=== PATIENT | female | born 1980 | race Caucasian/White ===

== ENCOUNTER 2016-04-28 09:32 | Inpatient (IN) | payer OTHER ==
[2016-04-28] VITALS (48 sets, daily range): BP systolic 67–136; BP diastolic 43–71; PULSE 72–94; RESP 13–24; Ht 162.6 cm; Wt 117.1 kg
[~2016-04-28] VITALS: Ht 162.6 cm; Wt 117.1 kg
[2016-04-28] MEDS ORDERED: D5W-0.45 NACL + KCL 20 MEQ 1,000 ML IV SCH (10:33)
[2016-04-28] MEDS ORDERED: SERT-165 PO (10:45)
[2016-04-28] MEDS ORDERED: LUN2 PO (10:45)
[2016-04-28] MEDS ORDERED: LOSA25TA5 PO (10:45)
[2016-04-28] MEDS ORDERED: ALPR1TAB7 PO (10:45)
[2016-04-28] MEDS ORDERED: MTF1000T PO (10:45)
[2016-04-28] MEDS ORDERED: morphine 2 MG INJ IV PRN (11:00)
[2016-04-28] MEDS ORDERED: ACETAMINOPHEN 1000MG/100ML IV 100 ML IVPB PRN (11:00)
[2016-04-28] MEDS ORDERED: CEFAZOLIN 2 GM/50 ML (PMX) 50 ML IVPB ONE (11:00)
[2016-04-28] MEDS ORDERED: SOD CHLORIDE 0.9% 1,000 ML IV ONE (11:00)
[2016-04-28 11:56] LABS: BASOPHIL # 0.1 10^3/ul (0.0-0.1); BASOPHILS % 0.4 % (0.0-2.0); EOSINOPHILS # 0.2 10^3/ul (0.0-0.5); EOSINOPHILS % 1.5 % (0.0-7.0); HEMATOCRIT 37.2 % (37.0-47.0); HEMOGLOBIN 12.5 g/dl (12.0-16.0); INR 1.01; LYMPHOCYTES % 29.4 % (15.0-51.0); MEAN CORPUSCULAR HEMOGLOBIN 26.5 pg (29.0-33.0); MEAN CORPUSCULAR HGB CONC 33.5 g/dl (32.0-37.0); MEAN CORPUSCULAR VOLUME 79.2 fl (82.0-101.0); MEAN PLATELET VOLUME 7.3 fl (7.4-10.4); MONOCYTE # 0.7 10^3/ul (0.3-0.9); MONOCYTES % 5.2 % (0.0-11.0); NEUTROPHIL # 8.6 10^3/ul (1.6-7.5); NEUTROPHILS % 63.5 % (39.0-77.0); PLATELET COUNT 379 10^3/UL (140-440); PROTIME 13.3 Sec (12.2-14.2); RED CELL DISTRIBUTION WIDTH 15.9 % (11.5-14.5); UNCORRECTED WBC 13.5 10^3/ul (4.8-10.8); WHITE BLOOD COUNT 13.5 10^3/ul (4.8-10.8)
[2016-04-28 11:57] LABS: PARTIAL THROMBOPLASTIN TIME 34.6 Sec (25.0-35.0)
[2016-04-28 12:00] LABS: CONDITION 1; LH ANALYZER COMMENTS 1
[2016-04-28 12:03] LABS: CALCIUM 8.8 mg/dl (8.4-10.2); CREATININE 0.45 mg/dl (0.44-1.00); POTASSIUM 3.7 mmol/L (3.5-5.1)
[2016-04-28] MEDS ORDERED: PROPOFOL 20 ML ONE (13:08)
[2016-04-28] MEDS ORDERED: FENTAnyl 50 MCG/ML VIAL ONE (13:08)
[2016-04-28] MEDS ORDERED: MIDAZOLAM 1 MG/ML 2 ML INJ ONE (13:08)
[2016-04-28] MEDS ORDERED: ROCURONIUM 50 MG INJ ONE (13:08)
[2016-04-28] MEDS ORDERED: ROPIVACAINE 0.2% 20 ML VIAL ONE (13:12)
[2016-04-28] MEDS ORDERED: ALBUTEROL 0.083% (NEB) 2.5 MG/3 ML AMP ONE (13:30)
[2016-04-28] MEDS ORDERED: CEFAZOLIN 1 GM INJ ONE (13:47)
[2016-04-28] MEDS ORDERED: PHENYLephrine (100 MCG/ML) 5ML SYG ONE (13:48)
[2016-04-28] MEDS ORDERED: DEXAMETHASONE 4 MG/ML 1 ML INJ ONE (13:54)
[2016-04-28] MEDS ORDERED: ONDANSETRON 4 MG INJ ONE (13:54)
[2016-04-28] MEDS ORDERED: FAMOTIDINE 20 MG INJ ONE (13:54)
[2016-04-28] MEDS ORDERED: ACETAMINOPHEN 1000MG/100ML IV 100 ML ONE (13:59)
[2016-04-28] MEDS ORDERED: GLYCOPYRROLATE 0.4 MG INJ ONE (14:27)
[2016-04-28] MEDS ORDERED: NEOSTIGMINE 3 MG/3 ML SYRINGE ONE (14:27)
[2016-04-28] MEDS ORDERED: ONDANSETRON 4 MG INJ IV PRN (14:30)
[2016-04-28] MEDS ORDERED: HYDROmorphONE (0.2 MG/ML) 10ML SYG IV PRN (14:30)
[2016-04-28] MEDS ORDERED: MEPERIDINE 25 MG INJ IV PRN (14:30)
[2016-04-28] MEDS ORDERED: SOD CHLORIDE 0.9% 500 ML IV ONE (17:30)
[2016-04-28] MEDS ORDERED: GLUCOSE GEL 15 GRAM TUBE PO PRN ×2 (17:30)
[2016-04-28] MEDS ORDERED: GLUCAGON 1 MG INJ IM PRN (17:30)
[2016-04-28] MEDS ORDERED: DEXTROSE 50% 50 ML SYRINGE IV PRN ×2 (17:30)
[2016-04-28] MEDS ORDERED: GLUCOSE GEL 15 GRAM TUBE BUCCAL PRN (17:30)
--- NOTE | 2016-04-28 17:34 | OPR ---
DATE OF OPERATION: 04/28/2016 PREOPERATIVE DIAGNOSIS: Symptomatic cholelithiasis. POSTOPERATIVE DIAGNOSIS: Symptomatic cholelithiasis. OPERATION PERFORMED: Laparoscopic cholecystectomy. ANESTHESIA: General. ANESTHESIOLOGIST: Bhavin Thomas DO SURGEON: Chandan Dixon MD AIRPLANE COVER MAKER: Ernst Georges MD INDICATIONS FOR PROCEDURE: The patient is a 35-year-old female who presented with multiple previous episodes of right upper quadrant pain associated with nausea and vomiting. Ultrasound did confirm cholelithiasis. She was counseled as to the risks versus benefits of cholecystectomy. She consente d and was scheduled for surgery. DESCRIPTION OF PROCEDURE: The patient was brought to the operating theater, placed under general en dotracheal tube anesthesia. The abdomen was prepped and draped in usual sterile fashion. A 2-cm in cision was made in the midline just above the umbilicus. Subcutaneous tissue was dissected with cau shruti down to the anterior rectus sheath. The 0 Vicryl stay sutures were placed on either side of th e linea alba. The linea alba was incised and the abdomen was entered without difficulty. Jose A tr ocar was then placed in standard fashion. The abdomen was insufflated to a pressure of approximatel y 14 mmHg with carbon dioxide. The laparoscope was introduced. Attention was directed to the right upper quadrant where a distended gallbladder with stone silhouettes was identified. Three accessor y ports were placed under direct vision in standard fashion. Through the lateral port sites, the ga llbladder was grasped at the fundus and neck and retracted cephalad and lateral. Peritoneum overlyi ng the gallbladder, both laterally and medially, was then incised with cautery to facilitate mobiliz ation of triangle of Calot. With meticulous dissection, the cystic duct was isolated. Two clips we re placed across it distally. It was then transected with the endovascular NICOLE stapler at its junct ion with the neck of the gallbladder. Subsequently, cystic artery was isolated, triply clipped, and transected. Gallbladder was then dissected out of the gallbladder fossa using cautery. Prior to f inal transection, irrigation and inspection took place. Minimal bleeding was controlled with cauter y. The gallbladder was transected. The laparoscope was moved to the 12-mm subcostal port site, and the gallbladder was removed from the abdomen through the umbilical port site using the gallbladder retrieval bag. The Jose A trocar was then placed back in the abdomen. The abdomen was reinsufflate d. The laparoscope was moved back to the umbilical port site. Final irrigation and inspection took place. There was no evidence of bleeding. Three accessory ports were then removed under direct vi danilo. Again, there was no evidence of bleeding. Finally, the umbilical port was removed. Midline umbilical fascia was reapproximated with 0 Prolene sutures in figure-of-8 fashion. All wounds were irrigated with Betadine. Skin incisions were reapproximated with skin nitin. The patient tolerat ed procedure well. Estimated blood loss was 20 mL. There were no complications and the patient was transported in stable condition to the recovery room. Dictated By: CHANDAN PANTOJA/ARGELIA Conf#: [id number] DID#: [id number]
--- NOTE | 2016-04-28 17:37 | RADRPT ---
PROCEDURE: Chest Radiograph. CLINICAL INDICATION: Shortness of breath TECHNIQUE: Single frontal chest radiograph. COMPARISON: None available FINDINGS: The patient is rotated. Lung volumes are moderately decreased in there is mild basilar atelectasis and central compressive changes. No confluent or lobar infiltrate is seen. No pleural effusion is identified. The bones are intact. IMPRESSION: 1. Low lung volumes with basilar atelectasis and central compressive changes. 10. No evidence of acute cardiopulmonary disease. RPTAT: KK .Nirmal Duke MD, MD Date Time Electronically viewed and signed by .Nirmal Duke MD, on 04/28/2016 17:37 .B/
[2016-04-28] MEDS: INSULIN ASPART [NOVOLOG] 3 ML PEN SC SCH ×2 (18:00→21:18)
[2016-04-28] MEDS ORDERED: KETOROLAC 30 MG INJ IV PRN (20:00)
[2016-04-28] MEDS: metFORMIN 500 MG TAB PO SCH (20:08)
[2016-04-28] MEDS: morphine 2 MG INJ IV PRN ×2 (20:20→22:09)
--- NOTE | 2016-04-28 20:28 | HP ---
DATE OF ADMISSION: 04/28/2016 HISTORY OF PRESENT ILLNESS: The patient is a 35-year-old female with a past medical history positiv e for obesity, anxiety and depression and noninsulin-dependent diabetes mellitus. The patient prese nted with symptomatic cholelithiasis and was seen by Dr. Dixon in surgical consultation. The patien t was brought to the hospital and underwent laparoscopic cholecystectomy. The patient experienced s ome postoperative pain. Also the patient had labile blood pressure, was getting IV fluids, and sebastian ent will be admitted for further evaluation and management. PAST MEDICAL HISTORY: Per HPI. PAST SURGICAL HISTORY: Status post ORIF of right ankle fracture in 2006, status post appendectomy. FAMILY HISTORY: Positive for diabetes in the patient's mother, positive for colon cancer in the pat ient's brother at the age of 46. SOCIAL HISTORY: The patient lives at home. The patient denies any tobacco use, denies any illicit drug use. The patient uses alcohol occasionally. ALLERGIES: NO KNOWN ALLERGIES. HOME MEDICATIONS: Include: 1. Metformin 1000 mg p.o. b.i.d. 2. Zoloft 100 mg p.o. daily. REVIEW OF SYSTEMS: A 12-point review of systems is negative unless mentioned in HPI. PHYSICAL ASSESSMENT: GENERAL: A well-developed, well-nourished obese female, currently is awake, alert. VITAL SIGNS: Temperature is 97.5, pulse is 79, blood pressure is 124/64, respiratory rate 16, oxyge n saturation 97% on room air. HEENT: Head is atraumatic, normocephalic. Pupils equal, round, reactive to light and accommodation . Oral mucosa is pink, moist. NECK: Supple. No cervical lymphadenopathy, no thyromegaly. CHEST: Clear bilaterally. There are no rhonchi, wheezes, rales noted. CARDIOVASCULAR: Normal S1, S2. No murmurs, gallops, clicks, rubs noted. ABDOMEN: Protuberant, soft, status post laparoscopic cholecystectomy with laparoscopic incisions in tact. EXTREMITIES: No edema, clubbing, cyanosis. Pulses equal bilaterally 2+. SKIN: There is no rash, petechiae noted. NEUROLOGIC: The patient is awake, alert and oriented x4. No focal deficit noted. Motor strength o f 5/5 in all extremities. LABORATORY DATA ON ADMISSION: CBC: White blood cells 13.5, hemoglobin 12.5, hematocrit 37.2, plate lets 379. Chemistry: Sodium is 142, potassium 3.7, chloride 106, carbon dioxide 24, anion gap 16, BUN is 9, creatinine 0.45, glucose 100, calcium is 8.8. PT is 13.3, INR is 1.01, APTT is 34.6. ASSESSMENT AND PLAN: 1. Symptomatic cholelithiasis, status post laparoscopic cholecystectomy. Will continue IV fluids. The patient received preoperative antibiotic, cefazolin. Continue Tylenol and morphine p.r.n. for pain and Zofran p.r.n. for nausea. 2. Noninsulin-dependent diabetes mellitus. We are going to monitor blood sugar, continue metformin . The patient was able to take p.o., now start NovoLog per mild algorithm sliding scale. 3. Obesity. 4. Anxiety and depression. 5. Sequential compression device for deep venous thrombosis prophylaxis. Further recommendations based on clinical course. Plan of care discussed with Dr. Rodrigez. Dictated By: AYLIN REMY [employer] SUPERVISOR for LUIS E RODRIGEZ MD SR/NTS Conf#: [id number] DID#: [id number]
[2016-04-28] MEDS: 1/2 NS + KCL 20 MEQ 1,000 ML IV SCH (21:19)
[2016-04-29] MEDS ORDERED: morphine 2 MG INJ IV PRN
[2016-04-29] MEDS: morphine 4 MG/ML VIAL IV PRN ×9 (00:20→16:42)
[2016-04-29 02:51] VITALS: BP 119/61; PULSE 89; RESP 18
[2016-04-29 07:59] VITALS: BP 122/58; RESP 18
[2016-04-29] MEDS: INSULIN ASPART [NOVOLOG] 3 ML PEN SC SCH ×5 (08:00→21:00)
[2016-04-29] MEDS: SERTRALINE 100 MG TAB PO SCH (08:45)
[2016-04-29] MEDS: metFORMIN 500 MG TAB PO SCH ×2 (08:46→17:05)
[2016-04-29 08:47] LABS: BASOPHIL # 0.1 10^3/ul (0.0-0.1); BASOPHILS % 0.4 % (0.0-2.0); EOSINOPHILS % 0.1 % (0.0-7.0); HEMATOCRIT 27.1 % (37.0-47.0); LYMPHOCYTES # 3.2 10^3/ul (0.8-2.9); MEAN CORPUSCULAR HEMOGLOBIN 26.6 pg (29.0-33.0); MEAN CORPUSCULAR HGB CONC 33.3 g/dl (32.0-37.0); MEAN CORPUSCULAR VOLUME 80.1 fl (82.0-101.0); MEAN PLATELET VOLUME 7.1 fl (7.4-10.4); MONOCYTE # 1.6 10^3/ul (0.3-0.9); MONOCYTES % 7.3 % (0.0-11.0); NEUTROPHIL # 16.6 10^3/ul (1.6-7.5); NEUTROPHILS % 77.2 % (39.0-77.0); PLATELET COUNT 447 10^3/UL (140-440); RED BLOOD COUNT 3.38 10^6/ul (4.20-5.40); RED CELL DISTRIBUTION WIDTH 15.6 % (11.5-14.5); UNCORRECTED WBC 21.5 10^3/ul (4.8-10.8); WHITE BLOOD COUNT 21.5 10^3/ul (4.8-10.8)
[2016-04-29 08:57] LABS: CONDITION 1; LH ANALYZER COMMENTS 1; POTASSIUM 4.4 mmol/L (3.5-5.1)
[2016-04-29 08:59] LABS: CREATININE 0.5 mg/dl (0.44-1.00)
[2016-04-29 09:00] LABS: CALCIUM 7.8 mg/dl (8.4-10.2)
[2016-04-29] MEDS: 1/2 NS + KCL 20 MEQ 1,000 ML IV SCH (10:33)
[2016-04-29] MEDS ORDERED: ALPRAZOLAM 1 MG TAB PO PRN (11:30)
[2016-04-29 12:48] LABS: HEMATOCRIT 26.8 % (37.0-47.0); HEMOGLOBIN 8.8 g/dl (12.0-16.0)
[2016-04-29 12:55] VITALS: BP 140/67; PULSE 103; RESP 16
--- NOTE | 2016-04-29 15:03 | PN ---
Date/Time of Note Date/Time of Note DATE: 04/29/16 TIME: 15:01 Assessment/Plan VTE Prophylaxis VTE Prophylaxis Intervention: other Lines/Catheters IV Catheter Type (from Nrs): Peripheral IV Assessment/Plan Chief Complaint/Hosp Course 1. Symptomatic cholelithiasis, status post laparoscopic cholecystectomy. Will continue IV fluids. 2. Noninsulin-dependent diabetes mellitus. 3. Obesity. 4. Anxiety and depression. 5 obesity 6 leucocytosis plan antibiotic ck labs Problems: Subjective 24 Hr Interval Summary Subjective hx not possible: other (abd pain) Respiratory: no complaints Cardiovascular: No chest pain Gastrointestinal: pain (+), No nausea Exam/Review of Systems Vital Signs Vitals Vital Signs Date Time Temp Pulse Resp B/P Pulse Ox O2 Delivery O2 Flow Rate FiO2 04/29/16 12:55 98.2 103 16 140/67 97 Nasal Cannula 2.0 Intake and Output 04/28/16 04/28/16 04/29/16 15:00 23:00 07:00 Intake Total 1000 ml 500 ml 1005 ml Output Total 20 ml Balance 980 ml 500 ml 1005 ml Exam Neck: supple Respiratory: clear to auscultation Cardiovascular: regular rate and rhythm Gastrointestinal: bowel sounds (+), tender (+), No distended Results Result Diagram: 04/29/16 1209 04/29/16 0723 Results 24 hrs Laboratory Tests Test 04/28/16 21:10 04/29/16 01:37 04/29/16 07:23 04/29/16 08:37 Bedside Glucose 189 166 137 Anion Gap 16 Basophils # 0.1 Basophils % 0.4 Blood Morphology Comment Blood Urea Nitrogen 10 Calcium Level 7.8 L Carbon Dioxide Level 26 Chloride Level 104 Creatinine 0.50 Eosinophils # 0.0 Eosinophils % 0.1 Glucose Level 141 # Hematocrit 27.1 #L Hemoglobin 9.0 #L Hemoglobin A1c 6.1 H Lymphocytes # 3.2 H Lymphocytes % 15.0 Mean Corpuscular Hemoglobin 26.6 L Mean Corpuscular Hemoglobin Concent 33.3 Mean Corpuscular Volume 80.1 L Mean Platelet Volume 7.1 L Monocytes # 1.6 H Monocytes % 7.3 Neutrophils # 16.6 H Neutrophils % 77.2 H Nucleated Red Blood Cells # 0.0 Nucleated Red Blood Cells % 0.0 Platelet Count 447 H Potassium Level 4.4 Red Blood Count 3.38 #L Red Cell Distribution Width 15.6 H Sodium Level 142 White Blood Count 21.5 #H Test 04/29/16 12:09 04/29/16 12:40 Hematocrit 26.8 L Hemoglobin 8.8 L Bedside Glucose 142 Medications Medications Current Medications Ondansetron HCl (Zofran Inj) 4 mg Q6H PRN IV NAUSEA AND/OR VOMITING; Start at 11:00 Acetaminophen/ Codeine Phosphate 1 tab 1 tab Q6H PRN PO PAIN; Start 04/28/16 at 11:00 Acetaminophen (Ofirmev 1000mg/ 100ml Iv) 100 ml @ 400 mls/hr Q6H PRN IVPB PAIN Last administered on 04/28/16 18:17; Admin Dose 400 MLS/HR; Start at 11:00 Sertraline HCl (Zoloft) 100 mg DAILY PO ; Start 04/29/16 at 09:00 Miscellaneous Information 1 ea NOTE XX ; Start 04/28/16 at 17:30 Glucose (Glutose) 15 gm Q15M PRN PO DECREASED GLUCOSE; Start 04/28/16 at 17:30 Glucose (Glutose) 22.5 gm Q15M PRN PO DECREASED GLUCOSE; Start 04/28/16 at 17: 30 Dextrose (D50w Syringe) 25 ml Q15M PRN IV DECREASED GLUCOSE; Start 04/28/16 at 17:30 Dextrose (D50w Syringe) 50 ml Q15M PRN IV DECREASED GLUCOSE; Start 04/28/16 at 17:30 Glucagon (Glucagen) 1 mg Q15M PRN IM DECREASED GLUCOSE; Start 04/28/16 at 17:30 Glucose 15 gm 15 gm Q15M PRN BUCCAL DECREASED GLUCOSE; Start 04/28/16 at 17:30 Potassium Chloride/Sodium Chloride (1/2 NS + KCl 20 Meq) 1,000 ml @ 75 mls/hr [id number] IV Last administered on 04/29/16 10:33; Admin Dose 75 MLS/HR; Start at 20:00 Ketorolac Tromethamine (Toradol) 30 mg Q6H PRN IV PAIN Last administered on 23:01; Admin Dose 30 MG; Start 04/28/16 at 20:00; Stop 05/01/16 at 19:59 Morphine Sulfate (morphine) 4 mg Q2H PRN IV PAIN Last administered on t 14:36; Admin Dose 4 MG; Start 04/28/16 at 23:45 Alprazolam (Xanax) 1 mg Q12H PRN PO ANXIETY; Start 04/29/16 at 11:30 JEB VAZQUEZ MD Apr 29, 2016 15:03
[2016-04-29] MEDS: CEFTRIAXONE 500 MG in SOD CHLORIDE 0.9% 50 ML IVPB SCH (16:25)
--- NOTE | 2016-04-29 17:11 | PN ---
Date/Time of Note Date/Time of Note DATE: 04/29/16 TIME: 17:07 Assessment/Plan VTE Prophylaxis VTE Prophylaxis Intervention: SCD's Lines/Catheters [facility] Peripheral IV Urinary Cath still in place: No Assessment/Plan Chief Complaint/Hosp Course ASSESSMENT AND PLAN: 1. Symptomatic cholelithiasis, status post laparoscopic cholecystectomy. Continue Tylenol and morphine p.r.n. for pain and Zofran p.r.n. for nausea. Monitor H&H. 2. Noninsulin-dependent diabetes mellitus. Continue NovoLog per mild algorithm sliding scale. 3. Obesity. 4. Anxiety and depression. 5. Sequential compression device for deep venous thrombosis prophylaxis. Further recommendations based on clinical course. Plan of care discussed with Dr. Rodrigez. Problems: Subjective 24 Hr Interval Summary Free Text/Dictation Patient's complains of significant pain, stated that she had an episode of small amount of bleeding from incision site last night. Exam/Review of Systems Vital Signs Vitals Vital Signs Date Time Temp Pulse Resp B/P Pulse Ox O2 Delivery O2 Flow Rate FiO2 04/29/16 12:55 98.2 103 16 140/67 97 Nasal Cannula 2.0 Intake and Output 04/28/16 04/28/16 04/29/16 15:00 23:00 07:00 Intake Total 1000 ml 500 ml 1005 ml Output Total 20 ml Balance 980 ml 500 ml 1005 ml Exam GENERAL: A well-developed, well-nourished obese female, currently is awake, alert. HEENT: Head is atraumatic, normocephalic. NECK: Supple. No cervical lymphadenopathy, no thyromegaly. CHEST: Clear bilaterally. There are no rhonchi, wheezes, rales noted. CARDIOVASCULAR: Normal S1, S2. No murmurs, gallops, clicks, rubs noted. ABDOMEN: Protuberant, soft, status post laparoscopic cholecystectomy with laparoscopic incisions intact. EXTREMITIES: No edema, clubbing, cyanosis. Pulses equal bilaterally 2+. SKIN: There is no rash, petechiae noted. NEUROLOGIC: The patient is awake, alert and oriented x4. Results Result Diagram: 04/29/16 1209 04/29/16 0723 Results 24 hrs Laboratory Tests Test 04/28/16 21:10 04/29/16 01:37 04/29/16 07:23 04/29/16 08:37 Bedside Glucose 189 166 137 Anion Gap 16 Basophils # 0.1 Basophils % 0.4 Blood Morphology Comment Blood Urea Nitrogen 10 Calcium Level 7.8 L Carbon Dioxide Level 26 Chloride Level 104 Creatinine 0.50 Eosinophils # 0.0 Eosinophils % 0.1 Glucose Level 141 # Hematocrit 27.1 #L Hemoglobin 9.0 #L Hemoglobin A1c 6.1 H Lymphocytes # 3.2 H Lymphocytes % 15.0 Mean Corpuscular Hemoglobin 26.6 L Mean Corpuscular Hemoglobin Concent 33.3 Mean Corpuscular Volume 80.1 L Mean Platelet Volume 7.1 L Monocytes # 1.6 H Monocytes % 7.3 Neutrophils # 16.6 H Neutrophils % 77.2 H Nucleated Red Blood Cells # 0.0 Nucleated Red Blood Cells % 0.0 Platelet Count 447 H Potassium Level 4.4 Red Blood Count 3.38 #L Red Cell Distribution Width 15.6 H Sodium Level 142 White Blood Count 21.5 #H Test 04/29/16 12:09 04/29/16 12:40 Hematocrit 26.8 L Hemoglobin 8.8 L Bedside Glucose 142 Medications Medications Current Medications Ondansetron HCl (Zofran Inj) 4 mg Q6H PRN IV NAUSEA AND/OR VOMITING; Start at 11:00 Acetaminophen/ Codeine Phosphate 1 tab 1 tab Q6H PRN PO PAIN; Start 04/28/16 at 11:00 Acetaminophen (Ofirmev 1000mg/ 100ml Iv) 100 ml @ 400 mls/hr Q6H PRN IVPB PAIN Last administered on 04/28/16t 18:17; Admin Dose 400 MLS/HR; Start at 11:00 Sertraline HCl (Zoloft) 100 mg DAILY PO ; Start 04/29/16 at 09:00 Miscellaneous Information 1 ea NOTE XX ; Start 04/28/16 at 17:30 Glucose (Glutose) 15 gm Q15M PRN PO DECREASED GLUCOSE; Start 04/28/16 at 17:30 Glucose (Glutose) 22.5 gm Q15M PRN PO DECREASED GLUCOSE; Start 04/28/16 at 17: 30 Dextrose (D50w Syringe) 25 ml Q15M PRN IV DECREASED GLUCOSE; Start 04/28/16 at 17:30 Dextrose (D50w Syringe) 50 ml Q15M PRN IV DECREASED GLUCOSE; Start 04/28/16 at 17:30 Glucagon (Glucagen) 1 mg Q15M PRN IM DECREASED GLUCOSE; Start 04/28/16 at 17:30 Glucose 15 gm 15 gm Q15M PRN BUCCAL DECREASED GLUCOSE; Start 04/28/16 at 17:30 Potassium Chloride/Sodium Chloride (1/2 NS + KCl 20 Meq) 1,000 ml @ 75 mls/hr [id number] IV Last administered on 04/29/16 10:33; Admin Dose 75 MLS/HR; Start at 20:00 Ketorolac Tromethamine (Toradol) 30 mg Q6H PRN IV PAIN Last administered on 23:01; Admin Dose 30 MG; Start 04/28/16 at 20:00; Stop 05/01/16 at 19:59 Morphine Sulfate (morphine) 4 mg Q2H PRN IV PAIN Last administered on 16:42; Admin Dose 4 MG; Start 04/28/16 at 23:45 Alprazolam 1 mg 1 mg Q12H PRN PO ANXIETY; Start 04/29/16 at 11:30 Ceftriaxone Sodium/Sodium Chloride (Rocephin/NS) 50 ml @ 100 mls/hr Q24H IVPB Last administered on 04/29/16 16:25; Admin Dose 100 MLS/HR; Start 04/29/16 at 15:00 AYLIN REMY Apr 29, 2016 17:10
[2016-04-29] MEDS: HYDROmorphONE 1 MG/ML SYG IV PRN ×3 (18:47→22:39)
[2016-04-29] MEDS: ONDANSETRON 4 MG INJ IV PRN (18:50)
--- NOTE | 2016-04-29 19:47 | PN ---
DATE: SUBJECTIVE: Patient complaining of too much abdominal pain, especially at the site of the laparoscopic trocars on the right upper quadrant area. She denies nausea or vomiting, no bowel movement, no passing gas. Apparently last night, the patient has bled from the incision above the umbilicus and not much since midnight till today morning, they have put a small dressing, there has not been any more bleeding from that spot or any other spot. OBJECTIVE GENERAL: Patient is alert, awake, oriented x3, lying down on the bed. She looks slightly anxious. VITAL SIGNS: Is as follows: Blood pressure 140/67, heart rate is 103, respiration is 18, temperature is 98.2, saturation is 97% on 2 liters of nasal oxygen. Hemoglobin on admission (of course the patient has been n.p.o. over the night), was 12.5/37.2 with hypochromic, microcytic indices. Today morning hemoglobin has dropped to 9, hematocrit 27.1, and repeat hemoglobin and hematocrit at 2:00 is 8.8 and 26.8, so since morning has been stable. WBC is 21,500 with normal differential. ABDOMEN: Is obese. There is no tenderness in left lower quadrant or right lower quadrant, appears that there is some tenderness in the left upper quadrant and right upper quadrant. Bowel sound, unfortunately, the patient has such a heavy fatty subcutaneous tissue that I cannot really hear bowel sounds at this time. But, cough sign is negative, this is important that shows that there is no peritoneal irritation sign. ASSESSMENT: The patient is status post laparoscopic cholecystectomy. Patient is obese, very overweight patient is diabetic and has been on metformin. The patient has anxiety disorders and depressive disorders, the patient has been on Xanax and Zoloft and also Soma 350 mg per day b.i.d. for spasm of the calf muscles that she has had at home before. Now, the patient's problem is that too much pain requiring morphine injection every 2 to 4 hours 40 mg, and also a little bit drop in the hemoglobin and hematocrit that could be a sign of bleeding, 1 episode of bleeding where continued ooze bleeding. PLAN: 1. Will keep the patient n.p.o. 2. We will continue with running IV 100 mL per hour. 3. Will check the H and H every 8 hours and proceed accordingly. If really the loss is much more, we may have to give her blood transfusion. Will watch a close eye on the patient. Tomorrow morning, WBC and CMP, if shows any abnormality in liver functions or anything like that or the patient gets worse, we will proceed with getting a CT scan of the abdomen. The importance of WBC 21 ,500 could be a reactive leukocytosis, especially that this patient has some personality that required getting Xanax and Zoloft and Soma, I assume one of the possibilities is that the patient is exaggerating the pain, but of course the bleed, the decrease in her hemoglobin and hematocrit is something which is not functional, but actually exists, and will continue observing and repeating H and H to monitor the possible continued bleeding. I discussed the findings and situation of the patient with Dr. Dixon who is the primary surgeon and also Dr. Lange is observing the patient and monitoring and writing some orders, as well as the primary admitting physician. Dictated By: BRADLY UGALDE MD PS/NTS Conf#: [id number] DID#: [id number]
[2016-04-29 20:07] VITALS: BP 127/58; RESP 18
[2016-04-29 21:33] LABS: HEMATOCRIT 26.6 % (37.0-47.0); HEMOGLOBIN 8.8 g/dl (12.0-16.0)
[2016-04-30] MEDS: HYDROmorphONE 1 MG/ML SYG IV PRN ×10 (00:45→23:33)
[2016-04-30] MEDS: 1/2 NS + KCL 20 MEQ 1,000 ML IV SCH (02:29)
[2016-04-30] MEDS: PANTOPRAZOLE 40 MG INJ IV SCH ×2 (05:04→17:10)
[2016-04-30 06:07] LABS: BASOPHILS % 0.1 % (0.0-2.0); HEMATOCRIT 25.7 % (37.0-47.0); HEMOGLOBIN 8.6 g/dl (12.0-16.0); LYMPHOCYTES # 2.1 10^3/ul (0.8-2.9); LYMPHOCYTES % 8.2 % (15.0-51.0); MEAN CORPUSCULAR HEMOGLOBIN 26.7 pg (29.0-33.0); MEAN CORPUSCULAR HGB CONC 33.5 g/dl (32.0-37.0); MEAN CORPUSCULAR VOLUME 79.6 fl (82.0-101.0); MEAN PLATELET VOLUME 6.9 fl (7.4-10.4); MONOCYTE # 1.5 10^3/ul (0.3-0.9); NEUTROPHIL # 21.6 10^3/ul (1.6-7.5); NEUTROPHILS % 85.7 % (39.0-77.0); PLATELET COUNT 426 10^3/UL (140-440); RED BLOOD COUNT 3.23 10^6/ul (4.20-5.40); RED CELL DISTRIBUTION WIDTH 15.9 % (11.5-14.5); UNCORRECTED WBC 25.2 10^3/ul (4.8-10.8); WHITE BLOOD COUNT 25.2 10^3/ul (4.8-10.8)
[2016-04-30 06:20] LABS: ALBUMIN 3.6 g/dl (3.3-4.9); CONDITION 1; LH ANALYZER COMMENTS 1; POTASSIUM 3.9 mmol/L (3.5-5.1); SUSPECT 1
[2016-04-30 06:22] LABS: CREATININE 0.42 mg/dl (0.44-1.00)
[2016-04-30 06:23] LABS: BILIRUBIN,INDIRECT 0.3 mg/dl (0-1.1); BILIRUBIN,TOTAL 0.3 mg/dl (0.2-1.3); CALCIUM 8.2 mg/dl (8.4-10.2); TOTAL PROTEIN 7.2 g/dl (6.1-8.1)
[2016-04-30 06:27] LABS: POTASSIUM 4.2 mmol/L (3.5-5.1)
[2016-04-30 06:29] LABS: CREATININE 0.42 mg/dl (0.44-1.00)
[2016-04-30 06:30] LABS: CALCIUM 8.5 mg/dl (8.4-10.2)
[2016-04-30] MEDS: metFORMIN 500 MG TAB PO SCH ×2 (08:00→17:10)
[2016-04-30] MEDS: INSULIN ASPART [NOVOLOG] 3 ML PEN SC SCH ×4 (08:00→21:00)
[2016-04-30 08:01] VITALS: BP 129/57; RESP 18
[2016-04-30 08:46] LABS: ANISOCYTOSIS 1+
[2016-04-30 08:47] LABS: HYPOCHROMASIA 2+; MICROCYTOSIS 1+
[2016-04-30] MEDS: SERTRALINE 100 MG TAB PO SCH (08:54)
[2016-04-30] MEDS: D5W-0.45 NACL + KCL 20 MEQ 1,000 ML IV SCH (11:43)
--- NOTE | 2016-04-30 12:59 | PN ---
Date/Time of Note Date/Time of Note DATE: 04/30/16 TIME: 12:57 Assessment/Plan VTE Prophylaxis VTE Prophylaxis Intervention: other Lines/Catheters IV [facility] Peripheral IV Urinary Cath still in place: No Assessment/Plan Chief Complaint/Hosp Course 1. Symptomatic cholelithiasis, status post laparoscopic cholecystectomy. Will continue IV fluids. 2. Noninsulin-dependent diabetes mellitus. 3. Obesity. 4. Anxiety and depression. 5 obesity 6 leucocytosis plan antibiotic ck labs Problems: Subjective 24 Hr Interval Summary Respiratory: no complaints Gastrointestinal: pain (+) Neurologic: no complaints Exam/Review of Systems Vital Signs Vitals Vital Signs Date Time Temp Pulse Resp B/P Pulse Ox O2 Delivery O2 Flow Rate FiO2 04/30/16 08:01 98.6 86 18 129/57 98 04/30/16 08:00 2.0 04/29/16 20:00 Nasal Cannula Intake and Output 04/29/16 04/29/16 04/30/16 15:00 23:00 07:00 Intake Total 375 ml 500 ml 830 ml Balance 375 ml 500 ml 830 ml Exam Neck: supple Respiratory: clear to auscultation Cardiovascular: regular rate and rhythm Gastrointestinal: soft Musculoskeletal: nl extremities to inspection Results Result Diagram: 04/30/16 0505 04/30/16 0505 Results 24 hrs Laboratory Tests Test 04/29/16 17:01 04/29/16 20:47 04/29/16 20:56 04/30/16 05:05 Bedside Glucose 158 173 Hematocrit 26.6 L 25.7 L Hemoglobin 8.8 L 8.6 L Alanine Aminotransferase (ALT/SGPT) 66 Albumin 3.6 Albumin/Globulin Ratio 1.00 Alkaline Phosphatase 82 Anion Gap 14 Anisocytosis 1+ Aspartate Amino Transf (AST/SGOT) 46 Basophils # 0.0 Basophils % 0.1 Blood Morphology Comment Blood Urea Nitrogen 5 L Calcium Level 8.5 Carbon Dioxide Level 27 Chloride Level 104 Creatinine 0.42 L Direct Bilirubin 0.00 Eosinophils # 0.0 Eosinophils % 0.0 Globulin 3.60 H Glucose Level 153 Hypochromasia 2+ Indirect Bilirubin 0.3 Lymphocytes # 2.1 Lymphocytes % 8.2 L Mean Corpuscular Hemoglobin 26.7 L Mean Corpuscular Hemoglobin Concent 33.5 Mean Corpuscular Volume 79.6 L Mean Platelet Volume 6.9 L Microcytosis 1+ Monocytes # 1.5 H Monocytes % 6.0 Neutrophils # 21.6 H Neutrophils % 85.7 H Nucleated Red Blood Cells # 0.0 Nucleated Red Blood Cells % 0.0 Platelet Count 426 Potassium Level 4.2 Red Blood Count 3.23 L Red Cell Distribution Width 15.9 H Sodium Level 141 Total Bilirubin 0.3 Total Protein 7.2 White Blood Count 25.2 H Test 04/30/16 07:46 04/30/16 09:11 04/30/16 11:46 Bedside Glucose 185 167 140 Medications Medications Current Medications Ondansetron HCl (Zofran Inj) 4 mg Q6H PRN IV NAUSEA AND/OR VOMITING Last administered on 04/29/16 18:50; Admin Dose 4 MG; Start 04/28/16 at 11:00 Acetaminophen/ Codeine Phosphate 1 tab 1 tab Q6H PRN PO PAIN; Start 04/28/16 at 11:00 Acetaminophen (Ofirmev 1000mg/ 100ml Iv) 100 ml @ 400 mls/hr Q6H PRN IVPB PAIN Last administered on 04/28/16 18:17; Admin Dose 400 MLS/HR; Start at 11:00 Sertraline HCl (Zoloft) 100 mg DAILY PO ; Start 04/29/16 at 09:00 Miscellaneous Information 1 ea NOTE XX ; Start 04/28/16 at 17:30 Glucose (Glutose) 15 gm Q15M PRN PO DECREASED GLUCOSE; Start 04/28/16 at 17:30 Glucose (Glutose) 22.5 gm Q15M PRN PO DECREASED GLUCOSE; Start 04/28/16 at 17: 30 Dextrose (D50w Syringe) 25 ml Q15M PRN IV DECREASED GLUCOSE; Start 04/28/16 at 17:30 Dextrose (D50w Syringe) 50 ml Q15M PRN IV DECREASED GLUCOSE; Start 04/28/16 at 17:30 Glucagon (Glucagen) 1 mg Q15M PRN IM DECREASED GLUCOSE; Start 04/28/16 at 17:30 Glucose (Glutose) 15 gm Q15M PRN BUCCAL DECREASED GLUCOSE; Start 04/28/16 at 17 :30 Ketorolac Tromethamine (Toradol) 30 mg Q6H PRN IV PAIN Last administered on 23:01; Admin Dose 30 MG; Start 04/28/16 at 20:00; Stop 05/01/16 at 19:59 Alprazolam 1 mg 1 mg Q12H PRN PO ANXIETY; Start 04/29/16 at 11:30 Ceftriaxone Sodium/Sodium Chloride (Rocephin/NS) 50 ml @ 100 mls/hr Q24H IVPB Last administered on 04/29/16 16:25; Admin Dose 100 MLS/HR; Start 04/29/16 at 15:00 Hydromorphone HCl (Dilaudid) 0.5 mg Q2H PRN IV PAIN Last administered on 09:02; Admin Dose 0.5 MG; Start 04/29/16 at 18:30 Pantoprazole (Protonix Iv) 40 mg BID@06,18 IV Last administered on 04/30/16 05 :04; Admin Dose 40 MG; Start 04/30/16 at 06:00 Hydromorphone HCl 1 mg 1 mg Q3H PRN IV PAIN Last administered on 04/30/16 11: 07; Admin Dose 1 MG; Start 04/30/16 at 11:00 Potassium Chloride/Dextrose/ Sod Cl (D5-1/2ns + KCl 20 Meq) 1,000 ml @ 75 mls/ hr [id number] IV Last administered on 04/30/16 11:43; Admin Dose 75 MLS/HR; Start 04/30/16 at 11:30 JEB VAZQUEZ MD Apr 30, 2016 12:59
--- NOTE | 2016-04-30 13:41 | PN ---
DATE: 04/30/2016 SUBJECTIVE: States that she feels better than yesterday. No nausea, no vomiting. No bowel movemen t, plus/minus flatus. The pain is under control now with Dilaudid 0.7 mg IV q.3h. This pain is abd ominal pain, mainly in the right lateral upper quadrant area OBJECTIVE: GENERAL: The patient is alert, awake, oriented, lying down in the bed. VITAL SIGNS: Temperature 98.6, heart rate 86 regular, respirations 18, blood pressure 129/67, satur ation 98% on 2 liters of nasal cannula. ABDOMEN: Obese, bowel sounds plus/minus to me. Cough sign is negative, but right upper quadrant on deep pressure is tender. LABORATORY DATA: WBC again today has increased more, up to 25,200, 85% segmented. Hemoglobin and h ematocrit are 8.62 and 25.7, almost stable since yesterday. BUN is 5, creatinine 0.42. Total bilir ubin is 0.3, direct bilirubin 0.0. AST 46 normal, ALT 66 normal, alkaline phosphatase 82 normal. P otassium is 4.2 ASSESSMENT: Patient is status post laparoscopic cholecystectomy and status post bleeding from umbil ical area incision. Now the bleeding has stopped since yesterday. Hemoglobin has dropped once from 12.6 to 9, but since yesterday morning hemoglobin has almost been stable. There is no evidence of liver function abnormality. There is increasing WBC to 25,200, I am not sure what is the cause of t his. PLAN: Continue current care. Keep the patient n.p.o., bed rest. Check I's and O's. Repeat H and H every 8 hours and observe for any other problem. I will discuss with Dr. Dixon the increase in WB C and we will see if he comes up with any other suggestion. Dictated By: BRADLY UGALDE MD PS/NTS Conf#: [id number] DID#: [id number]
[2016-04-30] MEDS: CEFTRIAXONE 500 MG in SOD CHLORIDE 0.9% 50 ML IVPB SCH (14:13)
[2016-04-30 14:21] LABS: HEMATOCRIT 25.6 % (37.0-47.0); HEMOGLOBIN 8.4 g/dl (12.0-16.0)
--- NOTE | 2016-04-30 17:37 | PN ---
Date/Time of Note Date/Time of Note DATE: 04/30/16 TIME: 17:36 Assessment/Plan VTE Prophylaxis VTE Prophylaxis Intervention: SCD's Lines/Catheters IV [facility] ([facility] Peripheral IV Urinary Cath still in place: No Assessment/Plan Chief Complaint/Hosp Course ASSESSMENT AND PLAN: 1. Symptomatic cholelithiasis, status post laparoscopic cholecystectomy. Continue Tylenol and morphine p.r.n. for pain and Zofran p.r.n. for nausea. Monitor H&H. Continue IV fluids while patient is n.p.o. 2. Noninsulin-dependent diabetes mellitus. Continue NovoLog per mild algorithm sliding scale. 3. Obesity. 4. Anxiety and depression. Continue sequential compression device for deep venous thrombosis prophylaxis. Further recommendations based on clinical course. Plan of care discussed with Dr. Rodrigez. Problems: Subjective 24 Hr Interval Summary Free Text/Dictation Patient is n.p.o., bowel sounds hypoactive, pain is well controlled. Patient also small amount of oozing from the incision site. Exam/Review of Systems Vital Signs Vitals Vital Signs Date Time Temp Pulse Resp B/P Pulse Ox O2 Delivery O2 Flow Rate FiO2 04/30/16 08:01 98.6 86 18 129/57 98 04/30/16 08:00 2.0 04/29/16 20:00 Nasal Cannula Intake and Output 04/29/16 04/29/16 04/30/16 15:00 23:00 07:00 Intake Total 375 ml 500 ml 830 ml Balance 375 ml 500 ml 830 ml Exam GENERAL: A well-developed, well-nourished obese female, currently is awake, alert. HEENT: Head is atraumatic, normocephalic. NECK: Supple. No cervical lymphadenopathy, no thyromegaly. CHEST: Clear bilaterally. There are no rhonchi, wheezes, rales noted. CARDIOVASCULAR: Normal S1, S2. No murmurs, gallops, clicks, rubs noted. ABDOMEN: Protuberant, soft, status post laparoscopic cholecystectomy with laparoscopic incisions intact. EXTREMITIES: No edema, clubbing, cyanosis. Pulses equal bilaterally 2+. SKIN: There is no rash, petechiae noted. NEUROLOGIC: The patient is awake, alert and oriented x4. Results Result Diagram: 04/30/16 1337 04/30/16 0505 Results 24 hrs Laboratory Tests Test 04/29/16 20:47 04/29/16 20:56 04/30/16 05:05 04/30/16 07:46 Hematocrit 26.6 L 25.7 L Hemoglobin 8.8 L 8.6 L Bedside Glucose 173 185 Alanine Aminotransferase (ALT/SGPT) 66 Albumin 3.6 Albumin/Globulin Ratio 1.00 Alkaline Phosphatase 82 Anion Gap 14 Anisocytosis 1+ Aspartate Amino Transf (AST/SGOT) 46 Basophils # 0.0 Basophils % 0.1 Blood Morphology Comment Blood Urea Nitrogen 5 L Calcium Level 8.5 Carbon Dioxide Level 27 Chloride Level 104 Creatinine 0.42 L Direct Bilirubin 0.00 Eosinophils # 0.0 Eosinophils % 0.0 Globulin 3.60 H Glucose Level 153 Hypochromasia 2+ Indirect Bilirubin 0.3 Lymphocytes # 2.1 Lymphocytes % 8.2 L Mean Corpuscular Hemoglobin 26.7 L Mean Corpuscular Hemoglobin Concent 33.5 Mean Corpuscular Volume 79.6 L Mean Platelet Volume 6.9 L Microcytosis 1+ Monocytes # 1.5 H Monocytes % 6.0 Neutrophils # 21.6 H Neutrophils % 85.7 H Nucleated Red Blood Cells # 0.0 Nucleated Red Blood Cells % 0.0 Platelet Count 426 Potassium Level 4.2 Red Blood Count 3.23 L Red Cell Distribution Width 15.9 H Sodium Level 141 Total Bilirubin 0.3 Total Protein 7.2 White Blood Count 25.2 H Test 04/30/16 09:11 04/30/16 11:46 04/30/16 13:37 04/30/16 17:08 Bedside Glucose 167 140 174 Hematocrit 25.6 L Hemoglobin 8.4 L Medications Medications Current Medications Ondansetron HCl (Zofran Inj) 4 mg Q6H PRN IV NAUSEA AND/OR VOMITING Last administered on 04/29/16 18:50; Admin Dose 4 MG; Start 04/28/16 at 11:00 Acetaminophen/ Codeine Phosphate 1 tab 1 tab Q6H PRN PO PAIN; Start 04/28/16 at 11:00 Acetaminophen (Ofirmev 1000mg/ 100ml Iv) 100 ml @ 400 mls/hr Q6H PRN IVPB PAIN Last administered on 04/28/16 18:17; Admin Dose 400 MLS/HR; Start at 11:00 Sertraline HCl (Zoloft) 100 mg DAILY PO ; Start 04/29/16 at 09:00 Miscellaneous Information 1 ea NOTE XX ; Start 04/28/16 at 17:30 Glucose (Glutose) 15 gm Q15M PRN PO DECREASED GLUCOSE; Start 04/28/16 at 17:30 Glucose (Glutose) 22.5 gm Q15M PRN PO DECREASED GLUCOSE; Start 04/28/16 at 17: 30 Dextrose (D50w Syringe) 25 ml Q15M PRN IV DECREASED GLUCOSE; Start 04/28/16 at 17:30 Dextrose (D50w Syringe) 50 ml Q15M PRN IV DECREASED GLUCOSE; Start 04/28/16 at 17:30 Glucagon (Glucagen) 1 mg Q15M PRN IM DECREASED GLUCOSE; Start 04/28/16 at 17:30 Glucose (Glutose) 15 gm Q15M PRN BUCCAL DECREASED GLUCOSE; Start 04/28/16 at 17 :30 Ketorolac Tromethamine (Toradol) 30 mg Q6H PRN IV PAIN Last administered on 23:01; Admin Dose 30 MG; Start 04/28/16 at 20:00; Stop 05/01/16 at 19:59 Alprazolam 1 mg 1 mg Q12H PRN PO ANXIETY; Start 04/29/16 at 11:30 Ceftriaxone Sodium/Sodium Chloride (Rocephin/NS) 50 ml @ 100 mls/hr Q24H IVPB Last administered on 04/30/16 14:13; Admin Dose 100 MLS/HR; Start 04/29/16 at 15:00 Hydromorphone HCl (Dilaudid) 0.5 mg Q2H PRN IV PAIN Last administered on 09:02; Admin Dose 0.5 MG; Start 04/29/16 at 18:30 Pantoprazole (Protonix Iv) 40 mg BID@06,18 IV Last administered on 04/30/16 17 :10; Admin Dose 40 MG; Start 04/30/16 at 06:00 Hydromorphone HCl 1 mg 1 mg Q3H PRN IV PAIN Last administered on 04/30/16 17: 13; Admin Dose 1 MG; Start 04/30/16 at 11:00 Potassium Chloride/Dextrose/ Sod Cl (D5-1/2ns + KCl 20 Meq) 1,000 ml @ 75 mls/ hr [id number] IV Last administered on 04/30/16t 11:43; Admin Dose 75 MLS/HR; Start 04/30/16 at 11:30 AYLIN REMY Apr 30, 2016 17:37
[2016-04-30 20:03] VITALS: BP 135/60; RESP 16
[2016-04-30 22:51] LABS: HEMATOCRIT 25.2 % (37.0-47.0); HEMOGLOBIN 8.2 g/dl (12.0-16.0)
[2016-05-01] MEDS: D5W-0.45 NACL + KCL 20 MEQ 1,000 ML IV SCH ×4 (01:47→23:40)
[2016-05-01] MEDS: HYDROmorphONE 1 MG/ML SYG IV PRN ×8 (02:34→23:34)
[2016-05-01] MEDS: PANTOPRAZOLE 40 MG INJ IV SCH ×2 (05:38→17:39)
[2016-05-01 07:24] LABS: BASOPHIL # 0.1 10^3/ul (0.0-0.1); BASOPHILS % 0.3 % (0.0-2.0); EOSINOPHILS % 0.1 % (0.0-7.0); HEMATOCRIT 24.1 % (37.0-47.0); HEMOGLOBIN 8.2 g/dl (12.0-16.0); LYMPHOCYTES % 12.3 % (15.0-51.0); MEAN CORPUSCULAR HEMOGLOBIN 27.2 pg (29.0-33.0); MEAN CORPUSCULAR HGB CONC 34.1 g/dl (32.0-37.0); MEAN CORPUSCULAR VOLUME 79.6 fl (82.0-101.0); MEAN PLATELET VOLUME 7.1 fl (7.4-10.4); MONOCYTE # 1.8 10^3/ul (0.3-0.9); MONOCYTES % 7.3 % (0.0-11.0); NEUTROPHIL # 19.5 10^3/ul (1.6-7.5); PLATELET COUNT 415 10^3/UL (140-440); RED BLOOD COUNT 3.03 10^6/ul (4.20-5.40); RED CELL DISTRIBUTION WIDTH 15.8 % (11.5-14.5); UNCORRECTED WBC 24.3 10^3/ul (4.8-10.8); WHITE BLOOD COUNT 24.3 10^3/ul (4.8-10.8)
[2016-05-01 07:30] LABS: ALBUMIN 3.5 g/dl (3.3-4.9)
[2016-05-01 07:31] LABS: POTASSIUM 3.8 mmol/L (3.5-5.1)
[2016-05-01 07:33] LABS: ALBUMIN/GLOBULIN RATIO 0.94; BILIRUBIN,INDIRECT 0.7 mg/dl (0-1.1); BILIRUBIN,TOTAL 0.7 mg/dl (0.2-1.3); CREATININE 0.38 mg/dl (0.44-1.00); TOTAL PROTEIN 7.2 g/dl (6.1-8.1)
[2016-05-01 07:34] LABS: CALCIUM 8.1 mg/dl (8.4-10.2)
[2016-05-01 07:35] LABS: CONDITION 1; LH ANALYZER COMMENTS 1; SUSPECT 1
[2016-05-01] MEDS: metFORMIN 500 MG TAB PO SCH ×2 (08:00→17:43)
[2016-05-01 08:09] VITALS: BP 131/60; RESP 18
[2016-05-01] MEDS: SERTRALINE 100 MG TAB PO SCH (08:53)
[2016-05-01] MEDS: INSULIN ASPART [NOVOLOG] 3 ML PEN SC SCH ×4 (09:01→20:32)
[2016-05-01] MEDS ORDERED: LACTATED RINGER'S 500 ML IV ONE (13:00)
--- NOTE | 2016-05-01 14:02 | PN ---
DATE: 05/01/2016 SUBJECTIVE: States that she feels better today. Today is status post laparoscopic cholecystectomy post day 3. The patient started passing gas. No bowel movement, no nausea, no vomiting. Pain in the abdomen in the right upper quadrant and in the lateral side of the right upper quadrant has decreased to some extent today. She states it is about 7/10. Before, it was 9 or 10 over 10. VITAL SIGNS: Temperature 99.6, heart rate 87, respiration 18, blood pressure 131/60, saturations 100% with 2 liters. LABORATORY DATA: WBC today has dropped a little bit to 24,300 with 80% segmented. Platelet count is 415. Hemoglobin and hematocrit has been stable almost for the past 2 days. It is 8.2/24.1. BUN today is 9, creatinine 0.38. The patient not making adequate urine. The patient was already on IV fluids D5 normal saline plus 20 KCl per liter at 100 mL per hour. Today, she feels a little thirsty. ASSESSMENT: 1. Since the patient has started passing gas, I am going to start the patient on a full liquid diet. 2. We are going to change the frequency of checking hemoglobin to q.12 h. 3. It appears that the patient has blood inside of the peritoneal cavity, but at this time the patient is stable as was mentioned since 2 days ago. For 48 hours, his H and H is almost a stable. PLAN: 1. Continue current care. 2. Monitor H and H. 3. Start the patient on full liquid diet. 4. Pain medication and other medical measures per PCP. Dictated By: BRADLY CORTES/ARGELIA Conf#: [id number] DID#: [id number]
--- NOTE | 2016-05-01 14:11 | PN ---
Date/Time of Note Date/Time of Note DATE: 05/01/16 TIME: 14:10 Assessment/Plan VTE Prophylaxis VTE Prophylaxis Intervention: other Lines/Catheters IV Catheter Type (from [facility]): Peripheral IV Urinary Cath still in place: No Assessment/Plan Chief Complaint/Hosp Course 1. Symptomatic cholelithiasis, status post laparoscopic cholecystectomy. Will continue IV fluids. 2. Noninsulin-dependent diabetes mellitus. 3. Obesity. 4. Anxiety and depression. 5 obesity 6 leucocytosis plan antibiotic ck labs per surgery Problems: Subjective 24 Hr Interval Summary Cardiovascular: no complaints Gastrointestinal: no complaints Genitourinary: no complaints Exam/Review of Systems Vital Signs Vitals Vital Signs Date Time Temp Pulse Resp B/P Pulse Ox O2 Delivery O2 Flow Rate FiO2 05/01/16 08:09 99.6 87 18 131/60 100 04/30/16 20:00 Nasal Cannula 2.0 Intake and Output 04/30/16 04/30/16 05/01/16 15:00 23:00 07:00 Intake Total 800 ml 925 ml Balance 800 ml 925 ml Exam Neck: supple Respiratory: clear to auscultation Cardiovascular: regular rate and rhythm Gastrointestinal: soft Extremities: normal pulses Results Result Diagram: 05/01/16 0505 05/01/16 0505 Results 24 hrs Laboratory Tests Test 04/30/16 17:08 04/30/16 19:45 04/30/16 20:38 05/01/16 05:05 Bedside Glucose 174 174 Hematocrit 25.2 L 24.1 L Hemoglobin 8.2 L 8.2 L Alanine Aminotransferase (ALT/SGPT) 53 Albumin 3.5 Albumin/Globulin Ratio 0.94 Alkaline Phosphatase 90 Anion Gap 10 Aspartate Amino Transf (AST/SGOT) 43 Basophils # 0.1 Basophils % 0.3 Blood Morphology Comment Blood Urea Nitrogen 9 Calcium Level 8.1 L Carbon Dioxide Level 31 Chloride Level 103 Creatinine 0.38 L Differential Comment AUTO w/SCAN Direct Bilirubin 0.00 Eosinophils # 0.0 Eosinophils % 0.1 Globulin 3.70 H Glucose Level 152 Indirect Bilirubin 0.7 Lymphocytes # 3.0 H Lymphocytes % 12.3 L Mean Corpuscular Hemoglobin 27.2 L Mean Corpuscular Hemoglobin Concent 34.1 Mean Corpuscular Volume 79.6 L Mean Platelet Volume 7.1 L Monocytes # 1.8 H Monocytes % 7.3 Neutrophils # 19.5 H Neutrophils % 80.0 H Nucleated Red Blood Cells # 0.0 Nucleated Red Blood Cells % 0.0 Platelet Count 415 Potassium Level 3.8 Red Blood Count 3.03 L Red Cell Distribution Width 15.8 H Sodium Level 140 Total Bilirubin 0.7 Total Protein 7.2 White Blood Count 24.3 H Test 05/01/16 08:41 05/01/16 11:45 Bedside Glucose 165 150 Medications Medications Current Medications Ondansetron HCl (Zofran Inj) 4 mg Q6H PRN IV NAUSEA AND/OR VOMITING Last administered on 04/29/16 18:50; Admin Dose 4 MG; Start 04/28/16 at 11:00 Acetaminophen/ Codeine Phosphate 1 tab 1 tab Q6H PRN PO PAIN; Start 04/28/16 at 11:00 Acetaminophen (Ofirmev 1000mg/ 100ml Iv) 100 ml @ 400 mls/hr Q6H PRN IVPB PAIN Last administered on 04/28/16 18:17; Admin Dose 400 MLS/HR; Start at 11:00 Sertraline HCl (Zoloft) 100 mg DAILY PO ; Start 04/29/16 at 09:00 Miscellaneous Information 1 ea NOTE XX ; Start 04/28/16 at 17:30 Glucose (Glutose) 15 gm Q15M PRN PO DECREASED GLUCOSE; Start 04/28/16 at 17:30 Glucose (Glutose) 22.5 gm Q15M PRN PO DECREASED GLUCOSE; Start 04/28/16 at 17: 30 Dextrose (D50w Syringe) 25 ml Q15M PRN IV DECREASED GLUCOSE; Start 04/28/16 at 17:30 Dextrose (D50w Syringe) 50 ml Q15M PRN IV DECREASED GLUCOSE; Start 04/28/16 at 17:30 Glucagon (Glucagen) 1 mg Q15M PRN IM DECREASED GLUCOSE; Start 04/28/16 at 17:30 Glucose (Glutose) 15 gm Q15M PRN BUCCAL DECREASED GLUCOSE; Start 04/28/16 at 17 :30 Ketorolac Tromethamine (Toradol) 30 mg Q6H PRN IV PAIN Last administered on 23:01; Admin Dose 30 MG; Start 04/28/16 at 20:00; Stop 05/01/16 at 19:59 Alprazolam 1 mg 1 mg Q12H PRN PO ANXIETY; Start 04/29/16 at 11:30 Ceftriaxone Sodium/Sodium Chloride (Rocephin/NS) 50 ml @ 100 mls/hr Q24H IVPB Last administered on 04/30/16 14:13; Admin Dose 100 MLS/HR; Start 04/29/16 at 15:00 Hydromorphone HCl (Dilaudid) 0.5 mg Q2H PRN IV PAIN Last administered on 09:02; Admin Dose 0.5 MG; Start 04/29/16 at 18:30 Pantoprazole (Protonix Iv) 40 mg BID@06,18 IV Last administered on 05/01/16 05 :38; Admin Dose 40 MG; Start 04/30/16 at 06:00 Hydromorphone HCl 1 mg 1 mg Q3H PRN IV PAIN Last administered on 05/01/16 11: 37; Admin Dose 1 MG; Start 04/30/16 at 11:00 Potassium Chloride/Dextrose/ Sod Cl (D5-1/2ns + KCl 20 Meq) 1,000 ml @ 125 mls/ hr Q8H IV ; Start 05/01/16 at 13:00 JEB VAZQUEZ MD May 01, 2016 14:11
[2016-05-01] MEDS: CEFTRIAXONE 500 MG in SOD CHLORIDE 0.9% 50 ML IVPB SCH (14:33)
[2016-05-01 15:48] LABS: HEMATOCRIT 24.2 % (37.0-47.0); HEMOGLOBIN 7.9 g/dl (12.0-16.0)
[2016-05-01 18:28] LABS: HEMATOCRIT 24.3 % (37.0-47.0)
[2016-05-01 20:12] VITALS: BP 123/57; RESP 22
[2016-05-02] VITALS (9 sets, daily range): BP systolic 109–152; BP diastolic 51–70; PULSE 110–117; RESP 18–20
[2016-05-02] MEDS: HYDROmorphONE 1 MG/ML SYG IV PRN ×8 (02:36→23:41)
[2016-05-02] MEDS: D5W-0.45 NACL + KCL 20 MEQ 1,000 ML IV SCH ×3 (04:18→17:38)
[2016-05-02] MEDS: PANTOPRAZOLE 40 MG INJ IV SCH ×2 (05:32→17:30)
[2016-05-02 05:52] LABS: BASOPHIL # 0.1 10^3/ul (0.0-0.1); BASOPHILS % 0.3 % (0.0-2.0); EOSINOPHILS # 0.1 10^3/ul (0.0-0.5); EOSINOPHILS % 0.3 % (0.0-7.0); HEMATOCRIT 23.5 % (37.0-47.0); HEMOGLOBIN 7.9 g/dl (12.0-16.0); LYMPHOCYTES # 3.4 10^3/ul (0.8-2.9); LYMPHOCYTES % 14.1 % (15.0-51.0); MEAN CORPUSCULAR HEMOGLOBIN 27.4 pg (29.0-33.0); MEAN CORPUSCULAR HGB CONC 33.9 g/dl (32.0-37.0); MEAN CORPUSCULAR VOLUME 80.9 fl (82.0-101.0); MEAN PLATELET VOLUME 6.9 fl (7.4-10.4); MONOCYTE # 1.7 10^3/ul (0.3-0.9); MONOCYTES % 7.2 % (0.0-11.0); NEUTROPHIL # 18.9 10^3/ul (1.6-7.5); NEUTROPHILS % 78.1 % (39.0-77.0); PLATELET COUNT 445 10^3/UL (140-440); RED CELL DISTRIBUTION WIDTH 15.9 % (11.5-14.5); UNCORRECTED WBC 24.2 10^3/ul (4.8-10.8); WHITE BLOOD COUNT 24.2 10^3/ul (4.8-10.8)
[2016-05-02 06:02] LABS: ALBUMIN 3.3 g/dl (3.3-4.9)
[2016-05-02 06:03] LABS: POTASSIUM 3.9 mmol/L (3.5-5.1)
[2016-05-02 06:05] LABS: ALBUMIN/GLOBULIN RATIO 0.84; BILIRUBIN,INDIRECT 0.9 mg/dl (0-1.1); BILIRUBIN,TOTAL 0.9 mg/dl (0.2-1.3); CALCIUM 8.1 mg/dl (8.4-10.2); CREATININE 0.43 mg/dl (0.44-1.00); TOTAL PROTEIN 7.2 g/dl (6.1-8.1)
[2016-05-02 06:12] LABS: CONDITION 1; LH ANALYZER COMMENTS 1; SUSPECT 1
[2016-05-02] MEDS: SERTRALINE 100 MG TAB PO SCH (08:00)
[2016-05-02] MEDS: metFORMIN 500 MG TAB PO SCH ×2 (08:00→17:30)
[2016-05-02] MEDS: INSULIN ASPART [NOVOLOG] 3 ML PEN SC SCH ×4 (08:02→20:29)
--- NOTE | 2016-05-02 13:58 | PN ---
DATE: 05/02/2016 SUBJECTIVE: States that she is better has passed a lot of gas. No bowel movement. No nausea , no vomiting, no fevers. Pain is better. Has not been out of bed yet, but moving in the bed. Uri ne output is adequate and urinating satisfactorily. No dizziness. OBJECTIVE: VITAL SIGNS: Today 98.6 temperature, 76 heart rate, is regular, respirations 18, blood pressure 109 /57, saturation 98% on nasal cannula 2. LABORATORIES: WBC is still up to 24,200, hemoglobin is 7.9, hematocrit is 23.5, platelets 445. BUN , creatinine, normal. Liver function is normal. Bilirubin is 0.9. AST is 49, slightly elevated. ABDOMEN: Soft, mild tenderness on palpation of right upper quadrant and left upper quadrant. No re bound tenderness. EXTREMITIES: No calf tenderness. Sequential compression devices are on. ASSESSMENT AND PLAN: 1. The patient is status post a low risk of cholecystectomy. 2. Status post bleeding intraperitoneally due to drop of her hemoglobin to 9 and gradually in the p ast 4 days, gradually from 9 to 8. The patient appears stable. She has tolerated liquid diet. We are going to advance her diet to sof t diet today. Low fat. I will observe the patient in 1 or 2 more days. If she is stable and has a bowel movement, the patient can be discharged home with pain medication and iron supplement. Dictated By: BRADLY CORTES/ARGELIA Conf#: [id number] DID#: [id number]
[2016-05-02] MEDS: CEFTRIAXONE 500 MG in SOD CHLORIDE 0.9% 50 ML IVPB SCH (14:14)
--- NOTE | 2016-05-02 16:24 | PN ---
Date/Time of Note Date/Time of Note DATE: 05/02/16 TIME: 16:23 Assessment/Plan VTE Prophylaxis VTE Prophylaxis Intervention: other Lines/Catheters [facility] (from [facility] Peripheral IV Urinary Cath still in place: No Assessment/Plan Chief Complaint/Hosp Course 1. Symptomatic cholelithiasis, status post laparoscopic cholecystectomy. Will continue IV fluids. 2. Noninsulin-dependent diabetes mellitus. 3. Obesity. 4. Anxiety and depression. 5 obesity 6 leucocytosis 7 post op anemia plan antibiotic ck labs per surgery ua Problems: Subjective 24 Hr Interval Summary Cardiovascular: no complaints Gastrointestinal: no complaints Genitourinary: no complaints Exam/Review of Systems Vital Signs Vitals Vital Signs Date Time Temp Pulse Resp B/P Pulse Ox O2 Delivery O2 Flow Rate FiO2 05/02/16 15:30 113 145/66 05/02/16 14:30 98 Room Air 05/02/16 08:15 2.0 05/02/16 07:36 98.6 18 Intake and Output 05/01/16 05/01/16 05/02/16 15:00 23:00 07:00 Intake Total 240 ml 1420 ml Output Total 250 ml Balance 240 ml 1170 ml Exam Respiratory: clear to auscultation Cardiovascular: regular rate and rhythm Gastrointestinal: bowel sounds (+), soft Extremities: No edema Results Result Diagram: 05/02/164 05/02/16 0444 Results 24 hrs Laboratory Tests Test 05/01/16 17:07 05/01/16 17:58 05/01/16 19:56 05/02/16 04:44 Bedside Glucose 162 164 Hematocrit 24.3 L 23.5 L Hemoglobin 8.0 L 7.9 L Alanine Aminotransferase (ALT/SGPT) 49 Albumin 3.3 Albumin/Globulin Ratio 0.84 Alkaline Phosphatase 94 Anion Gap 11 Aspartate Amino Transf (AST/SGOT) 49 H Basophils # 0.1 Basophils % 0.3 Blood Morphology Comment Blood Urea Nitrogen 9 Calcium Level 8.1 L Carbon Dioxide Level 32 H Chloride Level 101 Creatinine 0.43 L Direct Bilirubin 0.00 Eosinophils # 0.1 Eosinophils % 0.3 Globulin 3.90 H Glucose Level 162 Indirect Bilirubin 0.9 Lymphocytes # 3.4 H Lymphocytes % 14.1 L Mean Corpuscular Hemoglobin 27.4 L Mean Corpuscular Hemoglobin Concent 33.9 Mean Corpuscular Volume 80.9 L Mean Platelet Volume 6.9 L Monocytes # 1.7 H Monocytes % 7.2 Neutrophils # 18.9 H Neutrophils % 78.1 H Nucleated Red Blood Cells # 0.0 Nucleated Red Blood Cells % 0.0 Platelet Count 445 H Potassium Level 3.9 Red Blood Count 2.90 L Red Cell Distribution Width 15.9 H Sodium Level 140 Total Bilirubin 0.9 Total Protein 7.2 White Blood Count 24.2 H Test 05/02/16 07:42 05/02/16 11:36 Bedside Glucose 155 145 Medications Medications Current Medications Ondansetron HCl (Zofran Inj) 4 mg Q6H PRN IV NAUSEA AND/OR VOMITING Last administered on 04/29/16 18:50; Admin Dose 4 MG; Start 04/28/16 at 11:00 Acetaminophen/ Codeine Phosphate 1 tab 1 tab Q6H PRN PO PAIN; Start 04/28/16 at 11:00 Acetaminophen (Ofirmev 1000mg/ 100ml Iv) 100 ml @ 400 mls/hr Q6H PRN IVPB PAIN Last administered on 04/28/16 18:17; Admin Dose 400 MLS/HR; Start at 11:00 Sertraline HCl (Zoloft) 100 mg DAILY PO Last administered on 05/02/16 08:00; Admin Dose 100 MG; Start 04/29/16 at 09:00 Miscellaneous Information 1 ea NOTE XX ; Start 04/28/16 at 17:30 Glucose (Glutose) 15 gm Q15M PRN PO DECREASED GLUCOSE; Start 04/28/16 at 17:30 Glucose (Glutose) 22.5 gm Q15M PRN PO DECREASED GLUCOSE; Start 04/28/16 at 17: 30 Dextrose (D50w Syringe) 25 ml Q15M PRN IV DECREASED GLUCOSE; Start 04/28/16 at 17:30 Dextrose (D50w Syringe) 50 ml Q15M PRN IV DECREASED GLUCOSE; Start 04/28/16 at 17:30 Glucagon (Glucagen) 1 mg Q15M PRN IM DECREASED GLUCOSE; Start 04/28/16 at 17:30 Glucose (Glutose) 15 gm Q15M PRN BUCCAL DECREASED GLUCOSE; Start 04/28/16 at 17 :30 Alprazolam 1 mg 1 mg Q12H PRN PO ANXIETY; Start 04/29/16 at 11:30 Ceftriaxone Sodium/Sodium Chloride (Rocephin/NS) 50 ml @ 100 mls/hr Q24H IVPB Last administered on 05/02/16 14:14; Admin Dose 100 MLS/HR; Start 04/29/16 at 15:00 Hydromorphone HCl (Dilaudid) 0.5 mg Q2H PRN IV PAIN Last administered on 09:02; Admin Dose 0.5 MG; Start 04/29/16 at 18:30 Pantoprazole (Protonix Iv) 40 mg BID@06,18 IV Last administered on 05/02/16 05 :32; Admin Dose 40 MG; Start 04/30/16 at 06:00 Hydromorphone HCl 1 mg 1 mg Q3H PRN IV PAIN Last administered on 05/02/16 14: 15; Admin Dose 1 MG; Start 04/30/16 at 11:00 Potassium Chloride/Dextrose/ Sod Cl (D5-1/2ns + KCl 20 Meq) 1,000 ml @ 125 mls/ hr Q8H IV Last administered on 05/02/16 08:43; Admin Dose 125 MLS/HR; Start at 13:00 JEB VAZQUEZ MD May 02, 2016 16:24
[2016-05-02 17:36] LABS: HEMATOCRIT 23.1 % (37.0-47.0); HEMOGLOBIN 7.9 g/dl (12.0-16.0)
--- NOTE | 2016-05-02 18:55 | PN ---
Date/Time of Note Date/Time of Note DATE: 05/02/16 TIME: 18:53 Assessment/Plan VTE Prophylaxis VTE Prophylaxis Intervention: SCD's Lines/Catheters [facility]ter Type (from [facility]): Peripheral IV Urinary Cath still in place: No Assessment/Plan Chief Complaint/Hosp Course ASSESSMENT AND PLAN: 1. Symptomatic cholelithiasis, status post laparoscopic cholecystectomy. Continue Tylenol and morphine p.r.n. for pain and Zofran p.r.n. for nausea. Monitor H&H. Monitor for surgical site bleeding. 2. Noninsulin-dependent diabetes mellitus. Continue NovoLog per mild algorithm sliding scale. 3. Obesity. 4. Anxiety and depression. Continue sequential compression device for deep venous thrombosis prophylaxis. Further recommendations based on clinical course. Plan of care discussed with Dr. Rodrigez. Problems: Subjective 24 Hr Interval Summary Free Text/Dictation Patient's continues to have oozing from incision site when she gets up, pain is better controlled, patient tolerates diet well, denies nausea vomiting. Exam/Review of Systems Vital Signs Vitals Vital Signs Date Time Temp Pulse Resp B/P Pulse Ox O2 Delivery O2 Flow Rate FiO2 05/02/16 16:51 113 131/61 05/02/16 14:30 98 Room Air 05/02/16 08:15 2.0 05/02/16 07:36 98.6 18 Intake and Output 05/01/16 05/01/16 05/02/16 15:00 23:00 07:00 Intake Total 240 ml 1420 ml Output Total 250 ml Balance 240 ml 1170 ml Exam GENERAL: A well-developed, well-nourished obese female, currently is awake, alert. HEENT: Head is atraumatic, normocephalic. NECK: Supple. No cervical lymphadenopathy, no thyromegaly. CHEST: Clear bilaterally. There are no rhonchi, wheezes, rales noted. CARDIOVASCULAR: Normal S1, S2. No murmurs, gallops, clicks, rubs noted. ABDOMEN: Protuberant, soft, status post laparoscopic cholecystectomy with laparoscopic incisions intact. EXTREMITIES: No edema, clubbing, cyanosis. Pulses equal bilaterally 2+. SKIN: There is no rash, petechiae noted. NEUROLOGIC: The patient is awake, alert and oriented x4. Results Result Diagram: 05/02/16 1725 05/02/16 0444 Results 24 hrs Laboratory Tests Test 05/01/16 19:56 05/02/16 04:44 05/02/16 07:42 05/02/16 11:36 Bedside Glucose 164 155 145 Alanine Aminotransferase (ALT/SGPT) 49 Albumin 3.3 Albumin/Globulin Ratio 0.84 Alkaline Phosphatase 94 Anion Gap 11 Aspartate Amino Transf (AST/SGOT) 49 H Basophils # 0.1 Basophils % 0.3 Blood Morphology Comment Blood Urea Nitrogen 9 Calcium Level 8.1 L Carbon Dioxide Level 32 H Chloride Level 101 Creatinine 0.43 L Direct Bilirubin 0.00 Eosinophils # 0.1 Eosinophils % 0.3 Globulin 3.90 H Glucose Level 162 Hematocrit 23.5 L Hemoglobin 7.9 L Indirect Bilirubin 0.9 Lymphocytes # 3.4 H Lymphocytes % 14.1 L Mean Corpuscular Hemoglobin 27.4 L Mean Corpuscular Hemoglobin Concent 33.9 Mean Corpuscular Volume 80.9 L Mean Platelet Volume 6.9 L Monocytes # 1.7 H Monocytes % 7.2 Neutrophils # 18.9 H Neutrophils % 78.1 H Nucleated Red Blood Cells # 0.0 Nucleated Red Blood Cells % 0.0 Platelet Count 445 H Potassium Level 3.9 Red Blood Count 2.90 L Red Cell Distribution Width 15.9 H Sodium Level 140 Total Bilirubin 0.9 Total Protein 7.2 White Blood Count 24.2 H Test 05/02/16 16:30 05/02/16 17:25 Bedside Glucose 163 Hematocrit 23.1 L Hemoglobin 7.9 L Medications Medications Current Medications Ondansetron HCl (Zofran Inj) 4 mg Q6H PRN IV NAUSEA AND/OR VOMITING Last administered on 04/29/16 18:50; Admin Dose 4 MG; Start 04/28/16 at 11:00 Acetaminophen/ Codeine Phosphate 1 tab 1 tab Q6H PRN PO PAIN; Start 04/28/16 at 11:00 Acetaminophen (Ofirmev 1000mg/ 100ml Iv) 100 ml @ 400 mls/hr Q6H PRN IVPB PAIN Last administered on 04/28/16 18:17; Admin Dose 400 MLS/HR; Start at 11:00 Sertraline HCl (Zoloft) 100 mg DAILY PO Last administered on 05/02/16 08:00; Admin Dose 100 MG; Start 04/29/16 at 09:00 Miscellaneous Information 1 ea NOTE XX ; Start 04/28/16 at 17:30 Glucose (Glutose) 15 gm Q15M PRN PO DECREASED GLUCOSE; Start 04/28/16 at 17:30 Glucose (Glutose) 22.5 gm Q15M PRN PO DECREASED GLUCOSE; Start 04/28/16 at 17: 30 Dextrose (D50w Syringe) 25 ml Q15M PRN IV DECREASED GLUCOSE; Start 04/28/16 at 17:30 Dextrose (D50w Syringe) 50 ml Q15M PRN IV DECREASED GLUCOSE; Start 04/28/16 at 17:30 Glucagon (Glucagen) 1 mg Q15M PRN IM DECREASED GLUCOSE; Start 04/28/16 at 17:30 Glucose (Glutose) 15 gm Q15M PRN BUCCAL DECREASED GLUCOSE; Start 04/28/16 at 17 :30 Alprazolam 1 mg 1 mg Q12H PRN PO ANXIETY; Start 04/29/16 at 11:30 Ceftriaxone Sodium/Sodium Chloride (Rocephin/NS) 50 ml @ 100 mls/hr Q24H IVPB Last administered on 05/02/16 14:14; Admin Dose 100 MLS/HR; Start 04/29/16 at 15:00 Hydromorphone HCl (Dilaudid) 0.5 mg Q2H PRN IV PAIN Last administered on 09:02; Admin Dose 0.5 MG; Start 04/29/16 at 18:30 Pantoprazole (Protonix Iv) 40 mg BID@06,18 IV Last administered on 05/02/16 17 :30; Admin Dose 40 MG; Start 04/30/16 at 06:00 Hydromorphone HCl 1 mg 1 mg Q3H PRN IV PAIN Last administered on 05/02/16 17: 29; Admin Dose 1 MG; Start 04/30/16 at 11:00 Potassium Chloride/Dextrose/ Sod Cl (D5-1/2ns + KCl 20 Meq) 1,000 ml @ 125 mls/ hr Q8H IV Last administered on 05/02/16 17:38; Admin Dose 125 MLS/HR; Start at 13:00 AYLIN REMY May 02, 2016 18:55
[2016-05-02 23:12] LABS: ADD UMIC YES; URINE BILIRUBIN (Dip) 2+ (NEGATIVE); URINE BLOOD (Dip) 3+ (NEGATIVE); URINE COLOR AMBER (YELLOW); URINE KETONES (Dip) NEGATIVE (NEGATIVE); URINE LEUKOCYTE ESTERASE (Dip) TRACE (NEGATIVE); URINE NITRITE (Dip) POSITIVE (NEGATIVE); URINE TOTAL PROTEIN (Dip) 1+ (NEGATIVE); URINE UROBILINOGEN (Dip) 4.0 E.U./dL (0.1-1.0)
[2016-05-02 23:59] LABS: ICTOTEST POSITIVE (NEGATIVE)
[2016-05-03 00:01] LABS: SQUAMOUS EPITHELIAL CELL,UR MODERATE
[2016-05-03 00:02] LABS: BACTERIA,URINE FEW
[2016-05-03] MEDS: HYDROmorphONE 1 MG/ML SYG IV PRN ×8 (02:40→23:42)
[2016-05-03] MEDS: PANTOPRAZOLE 40 MG INJ IV SCH ×2 (05:36→17:41)
[2016-05-03] MEDS: D5W-0.45 NACL + KCL 20 MEQ 1,000 ML IV SCH ×3 (05:38→23:11)
[2016-05-03] MEDS: ALPRAZOLAM 0.5 MG TAB PO PRN ×2 (06:24→17:52)
[2016-05-03 06:33] LABS: BASOPHIL # 0.1 10^3/ul (0.0-0.1); BASOPHILS % 0.3 % (0.0-2.0); EOSINOPHILS # 0.2 10^3/ul (0.0-0.5); EOSINOPHILS % 0.8 % (0.0-7.0); HEMOGLOBIN 7.9 g/dl (12.0-16.0); LYMPHOCYTES % 15.6 % (15.0-51.0); MEAN CORPUSCULAR HEMOGLOBIN 27.4 pg (29.0-33.0); MEAN CORPUSCULAR HGB CONC 34.5 g/dl (32.0-37.0); MEAN CORPUSCULAR VOLUME 79.4 fl (82.0-101.0); MEAN PLATELET VOLUME 7.1 fl (7.4-10.4); MONOCYTES % 7.7 % (0.0-11.0); NEUTROPHIL # 19.3 10^3/ul (1.6-7.5); NEUTROPHILS % 75.6 % (39.0-77.0); PLATELET COUNT 526 10^3/UL (140-440); RED BLOOD COUNT 2.89 10^6/ul (4.20-5.40); UNCORRECTED WBC 25.5 10^3/ul (4.8-10.8); WHITE BLOOD COUNT 25.5 10^3/ul (4.8-10.8)
[2016-05-03 06:37] LABS: CONDITION 1; LH ANALYZER COMMENTS 1
[2016-05-03 06:47] LABS: ALBUMIN 3.2 g/dl (3.3-4.9)
[2016-05-03 06:48] LABS: POTASSIUM 3.9 mmol/L (3.5-5.1)
[2016-05-03 06:50] LABS: ALBUMIN/GLOBULIN RATIO 0.84; BILIRUBIN,INDIRECT 0.9 mg/dl (0-1.1); BILIRUBIN,TOTAL 0.9 mg/dl (0.2-1.3); CREATININE 0.42 mg/dl (0.44-1.00)
[2016-05-03 06:51] LABS: CALCIUM 7.8 mg/dl (8.4-10.2)
[2016-05-03 07:32] VITALS: BP 105/52; RESP 20
[2016-05-03] MEDS: metFORMIN 500 MG TAB PO SCH ×2 (08:44→17:41)
[2016-05-03] MEDS: SERTRALINE 100 MG TAB PO SCH (08:47)
[2016-05-03] MEDS: INSULIN ASPART [NOVOLOG] 3 ML PEN SC SCH ×4 (08:49→21:00)
--- NOTE | 2016-05-03 09:29 | PN ---
Date/Time of Note Date/Time of Note DATE: 05/03/16 TIME: 09:27 Assessment/Plan VTE Prophylaxis VTE Prophylaxis Intervention: other Lines/Catheters IV Catheter Type (from [facility]): Peripheral IV Urinary Cath still in place: No Assessment/Plan Chief Complaint/Hosp Course 1. Symptomatic cholelithiasis, status post laparoscopic cholecystectomy. Will continue IV fluids. 2. Noninsulin-dependent diabetes mellitus. 3. Obesity. 4. Anxiety and depression. 5 obesity 6 leucocytosis 7 post op anemia plan antibiotic ck labs per surgery ua Problems: Subjective 24 Hr Interval Summary Cardiovascular: no complaints Gastrointestinal: pain (+) Exam/Review of Systems Vital Signs Vitals Vital Signs Date Time Temp Pulse Resp B/P Pulse Ox O2 Delivery O2 Flow Rate FiO2 05/03/16 07:32 98.3 110 20 105/52 99 05/02/16 20:00 Nasal Cannula 2.0 Intake and Output 05/02/16 05/02/16 05/03/16 15:00 23:00 07:00 Intake Total 1000 ml 2130 ml 1720 ml Balance 1000 ml 2130 ml 1720 ml Exam Neck: supple Respiratory: clear to auscultation Cardiovascular: regular rate and rhythm Gastrointestinal: soft Musculoskeletal: nl extremities to inspection Results Result Diagram: 05/03/16 0510 05/03/16 0510 Results 24 hrs Laboratory Tests Test 05/02/16 11:36 05/02/16 16:30 05/02/16 17:25 05/02/16 19:32 Bedside Glucose 145 163 159 Hematocrit 23.1 L Hemoglobin 7.9 L Test 05/02/16 21:45 05/03/16 05:10 05/03/16 08:10 Urine Bacteria FEW Urine Bilirubin 2+ H Urine Clarity SLIGHTLY CLOUDY Urine Color DELILAH Urine Glucose 0.1% H Urine Hemoglobin 3+ H Urine Ictotest POSITIVE Urine Ketones NEGATIVE Urine Leukocyte Esterase TRACE H Urine Microscopic RBC 5-10 Urine Microscopic WBC 5-10 Urine Nitrite POSITIVE H Urine Specific [place] 1.025 Urine Squamous Epithelial Cells MODERATE Urine Total Protein 1+ H Urine Urobilinogen 4.0 E.U./dL H Urine pH 5.5 Alanine Aminotransferase (ALT/SGPT) 54 Albumin 3.2 L Albumin/Globulin Ratio 0.84 Alkaline Phosphatase 117 Anion Gap 12 Aspartate Amino Transf (AST/SGOT) 48 H Basophils # 0.1 Basophils % 0.3 Blood Morphology Comment Blood Urea Nitrogen 8 Calcium Level 7.8 L Carbon Dioxide Level 31 Chloride Level 99 Creatinine 0.42 L Direct Bilirubin 0.00 Eosinophils # 0.2 Eosinophils % 0.8 Globulin 3.80 H Glucose Level 148 Hematocrit 23.0 L Hemoglobin 7.9 L Indirect Bilirubin 0.9 Lymphocytes # 4.0 H Lymphocytes % 15.6 Mean Corpuscular Hemoglobin 27.4 L Mean Corpuscular Hemoglobin Concent 34.5 Mean Corpuscular Volume 79.4 L Mean Platelet Volume 7.1 L Monocytes # 2.0 H Monocytes % 7.7 Neutrophils # 19.3 H Neutrophils % 75.6 Nucleated Red Blood Cells # 0.0 Nucleated Red Blood Cells % 0.0 Platelet Count 526 H Potassium Level 3.9 Red Blood Count 2.89 L Red Cell Distribution Width 16.0 H Sodium Level 138 Total Bilirubin 0.9 Total Protein 7.0 White Blood Count 25.5 H Bedside Glucose 143 Medications Medications Current Medications Ondansetron HCl (Zofran Inj) 4 mg Q6H PRN IV NAUSEA AND/OR VOMITING Last administered on 04/29/16 18:50; Admin Dose 4 MG; Start 04/28/16 at 11:00 Acetaminophen/ Codeine Phosphate 1 tab 1 tab Q6H PRN PO PAIN; Start 04/28/16 at 11:00 Acetaminophen (Ofirmev 1000mg/ 100ml Iv) 100 ml @ 400 mls/hr Q6H PRN IVPB PAIN Last administered on 04/28/16 18:17; Admin Dose 400 MLS/HR; Start at 11:00 Sertraline HCl (Zoloft) 100 mg DAILY PO Last administered on 05/03/16 08:47; Admin Dose 100 MG; Start 04/29/16 at 09:00 Miscellaneous Information 1 ea NOTE XX ; Start 04/28/16 at 17:30 Glucose (Glutose) 15 gm Q15M PRN PO DECREASED GLUCOSE; Start 04/28/16 at 17:30 Glucose (Glutose) 22.5 gm Q15M PRN PO DECREASED GLUCOSE; Start 04/28/16 at 17: 30 Dextrose (D50w Syringe) 25 ml Q15M PRN IV DECREASED GLUCOSE; Start 04/28/16 at 17:30 Dextrose (D50w Syringe) 50 ml Q15M PRN IV DECREASED GLUCOSE; Start 04/28/16 at 17:30 Glucagon (Glucagen) 1 mg Q15M PRN IM DECREASED GLUCOSE; Start 04/28/16 at 17:30 Glucose 15 gm 15 gm Q15M PRN BUCCAL DECREASED GLUCOSE; Start 04/28/16 at 17:30 Ceftriaxone Sodium/Sodium Chloride (Rocephin/NS) 50 ml @ 100 mls/hr Q24H IVPB Last administered on 05/02/16 14:14; Admin Dose 100 MLS/HR; Start 04/29/16 at 15:00 Hydromorphone HCl (Dilaudid) 0.5 mg Q2H PRN IV PAIN Last administered on 09:02; Admin Dose 0.5 MG; Start 04/29/16 at 18:30 Pantoprazole (Protonix Iv) 40 mg BID@06,18 IV Last administered on 05/03/16 05 :36; Admin Dose 40 MG; Start 04/30/16 at 06:00 Hydromorphone HCl 1 mg 1 mg Q3H PRN IV PAIN Last administered on 05/03/16 08: 47; Admin Dose 1 MG; Start 04/30/16 at 11:00 Potassium Chloride/Dextrose/ Sod Cl (D5-1/2ns + KCl 20 Meq) 1,000 ml @ 70 mls/ hr [id number] IV Last administered on 05/03/16 05:38; Admin Dose 70 MLS/HR; Start 05/01/16 at 13:00 Alprazolam (Xanax) 1 mg Q12H PRN PO ANXIETY Last administered on 05/03/16 06: 24; Admin Dose 1 MG; Start 05/03/16 at 05:56 JEB VAZQUEZ MD May 03, 2016 09:29
[2016-05-03] MEDS: ACETAMINOPHEN/CODEINE #3 TAB PO PRN (13:53)
--- NOTE | 2016-05-03 15:49 | RADRPT ---
PROCEDURE: XR Chest AP portable CLINICAL INDICATION: High WBC TECHNIQUE: An AP portable radiograph of the chest was submitted. COMPARISON: 04/28/2016 FINDINGS: Support Hardware: None Cardiovascular: The cardiovascular silhouette appears unremarkable. Lung Trejo: Foci of discoid atelectasis are again seen at the lung bases, greater on the left on th e right. Pleural Spaces: No pneumothorax or pleural effusion is identified. Osseous Structures: The osseous structures appear intact. Soft Tissues: The soft tissues appear generous. IMPRESSION: 1. Discoid atelectasis is again seen at the lung bases, greater on the left on the right. 2. Otherwise, stable unremarkable portable chest. Physician Sylvia Date Time Electronically viewed and signed by Physician Sylvia on 05/03/2016 15:48 /
--- NOTE | 2016-05-03 16:35 | RADRPT ---
PROCEDURE: US Abdomen and Retroperitoneum. CLINICAL INDICATION: Postop day #5 status post cholecystectomy, abdominal pain TECHNIQUE: Multiple real-time longitudinal and transverse images were acquired of the patient's ab domen and retroperitoneum utilizing a curved array transducer. COMPARISON: None FINDINGS: The liver measures 23 cm, without focal mass or intrahepatic biliary dilatation. Normal hepatopedal flow is seen within the main portal vein. The gallbladder is surgically absent. There is moderate free fluid around the liver. No intra or extrahepatic biliary dilatation is seen. The common bile duct measures 4.6 mm in maximal dimension. The visualized portions of the pancreas are unremarkable with obscuration of the tail of the pancrea s. The spleen measures 13.7 cm, without focal abnormality. The right kidney measures 12.6 cm in length. The left kidney measures 11.7 cm in length. There is normal echogenicity within the kidneys. There are no perinephric fluid collections. No hydronephrosis, mass, or calculus is seen. The aorta and IVC are unremarkable. IMPRESSION: 1. Moderate ascites around the liver. Given the history of recent cholecystectomy, consider bile l eak with bilious ascites. Findings can be further clarified with HIDA scan or paracentesis. 2. Hepatosplenomegaly. RPTAT: QQ .Jefferson Ugalde MD, Date Time Electronically viewed and signed by .Jefferson Ugalde MD, on 05/03/2016 16:34 .M/
[2016-05-03] MEDS: CEFTRIAXONE 500 MG in SOD CHLORIDE 0.9% 50 ML IVPB SCH (17:00)
[2016-05-03 18:14] LABS: HEMATOCRIT 22.8 % (37.0-47.0); HEMOGLOBIN 7.7 g/dl (12.0-16.0)
[2016-05-03 19:35] VITALS: BP 119/51; RESP 16
[2016-05-03 21:07] LABS: ADD UMIC YES; URINE BLOOD (Dip) 2+ (NEGATIVE); URINE COLOR AMBER (YELLOW); URINE KETONES (Dip) 15 (NEGATIVE); URINE LEUKOCYTE ESTERASE (Dip) 2+ (NEGATIVE); URINE NITRITE (Dip) POSITIVE (NEGATIVE); URINE TOTAL PROTEIN (Dip) 1+ (NEGATIVE); URINE UROBILINOGEN (Dip) >8.0 E.U./dL (0.1-1.0)
[2016-05-03 21:18] LABS: URINE BILIRUBIN (Dip) NEGATIVE (NEGATIVE)
[2016-05-03 21:23] LABS: BACTERIA,URINE MODERATE; MUCUS,URINE MANY; SQUAMOUS EPITHELIAL CELL,UR MANY
[2016-05-04] MEDS: HYDROmorphONE 1 MG/ML SYG IV PRN ×7 (02:42→21:39)
[2016-05-04] MEDS: PANTOPRAZOLE 40 MG INJ IV SCH ×2 (05:42→17:44)
[2016-05-04 06:31] LABS: ALBUMIN 2.9 g/dl (3.3-4.9)
[2016-05-04 06:32] LABS: POTASSIUM 3.7 mmol/L (3.5-5.1)
[2016-05-04 06:34] LABS: ALBUMIN/GLOBULIN RATIO 0.74; BILIRUBIN,INDIRECT 0.9 mg/dl (0-1.1); BILIRUBIN,TOTAL 0.9 mg/dl (0.2-1.3); CALCIUM 7.7 mg/dl (8.4-10.2); CREATININE 0.44 mg/dl (0.44-1.00); TOTAL PROTEIN 6.8 g/dl (6.1-8.1)
[2016-05-04 07:02] LABS: BASOPHILS % 0.1 % (0.0-2.0); EOSINOPHILS # 0.3 10^3/ul (0.0-0.5); HEMATOCRIT 22.6 % (37.0-47.0); HEMOGLOBIN 7.9 g/dl (12.0-16.0); LYMPHOCYTES # 4.3 10^3/ul (0.8-2.9); LYMPHOCYTES % 16.9 % (15.0-51.0); MEAN CORPUSCULAR HEMOGLOBIN 27.5 pg (29.0-33.0); MEAN CORPUSCULAR HGB CONC 34.7 g/dl (32.0-37.0); MEAN CORPUSCULAR VOLUME 79.3 fl (82.0-101.0); MEAN PLATELET VOLUME 6.9 fl (7.4-10.4); MONOCYTE # 1.9 10^3/ul (0.3-0.9); MONOCYTES % 7.5 % (0.0-11.0); NEUTROPHIL # 19.1 10^3/ul (1.6-7.5); NEUTROPHILS % 74.5 % (39.0-77.0); PLATELET COUNT 537 10^3/UL (140-440); RED BLOOD COUNT 2.85 10^6/ul (4.20-5.40); RED CELL DISTRIBUTION WIDTH 15.9 % (11.5-14.5); UNCORRECTED WBC 25.6 10^3/ul (4.8-10.8); WHITE BLOOD COUNT 25.6 10^3/ul (4.8-10.8)
[2016-05-04 07:03] LABS: CONDITION 1; LH ANALYZER COMMENTS 1; SUSPECT 1
[2016-05-04 07:45] VITALS: BP 126/57; RESP 18
[2016-05-04] MEDS: SERTRALINE 100 MG TAB PO SCH (08:19)
[2016-05-04] MEDS: metFORMIN 500 MG TAB PO SCH ×2 (08:19→17:43)
[2016-05-04] MEDS: INSULIN ASPART [NOVOLOG] 3 ML PEN SC SCH ×4 (08:20→20:21)
--- NOTE | 2016-05-04 13:07 | PN ---
Date/Time of Note Date/Time of Note DATE: 05/04/16 TIME: 13:05 Assessment/Plan VTE Prophylaxis VTE Prophylaxis Intervention: other Lines/Catheters IV Catheter Type (from [facility] Peripheral IV Urinary Cath still in place: No Assessment/Plan Chief Complaint/Hosp Course 1. Symptomatic cholelithiasis, status post laparoscopic cholecystectomy. Will continue IV fluids. 2. Noninsulin-dependent diabetes mellitus. 3. Obesity. 4. Anxiety and depression. 5 obesity 6 leucocytosis 7 post op anemia 8 r/o bileleak plan antibiotic ck labs per surgery dr ramos to see called dr veliz to see Problems: Subjective 24 Hr Interval Summary Respiratory: no complaints Cardiovascular: no complaints Gastrointestinal: pain (mild) Exam/Review of Systems Vital Signs Vitals Vital Signs Date Time Temp Pulse Resp B/P Pulse Ox O2 Delivery O2 Flow Rate FiO2 05/04/16 08:00 Nasal Cannula 2.0 05/04/16 07:45 99.3 111 18 126/57 93 Intake and Output 05/03/16 05/03/16 05/04/16 15:00 23:00 07:00 Intake Total 1650 ml 1220 ml Output Total 1300 ml Balance 350 ml 1220 ml Exam Neck: supple Respiratory: clear to auscultation Cardiovascular: regular rate and rhythm Gastrointestinal: bowel sounds (+), soft Results Result Diagram: 05/04/16 0540 05/04/16 0540 Results 24 hrs Laboratory Tests Test 05/03/16 17:11 05/03/16 17:26 05/03/16 20:28 05/03/16 20:50 Bedside Glucose 150 163 Hematocrit 22.8 L Hemoglobin 7.7 L Urine Bacteria MODERATE Urine Bilirubin NEGATIVE Urine Clarity CLEAR Urine Color DELILAH Urine Glucose 0.1% H Urine Hemoglobin 2+ H Urine Ketones 15 Urine Leukocyte Esterase 2+ H Urine Microscopic RBC 10-25 Urine Microscopic WBC 25-50 Urine Mucus MANY Urine Nitrite POSITIVE H Urine Specific [place] 1.020 Urine Squamous Epithelial Cells MANY Urine Total Protein 1+ H Urine Urobilinogen >8.0 E.U./dL H Urine pH 5.0 Test 05/04/16 05:40 05/04/16 07:40 05/04/16 11:40 Alanine Aminotransferase (ALT/SGPT) 47 Albumin 2.9 L Albumin/Globulin Ratio 0.74 Alkaline Phosphatase 108 Anion Gap 11 Aspartate Amino Transf (AST/SGOT) 34 Basophils # 0.0 Basophils % 0.1 Blood Morphology Comment Blood Urea Nitrogen 7 Calcium Level 7.7 L Carbon Dioxide Level 29 Chloride Level 99 Creatinine 0.44 Direct Bilirubin 0.00 Eosinophils # 0.3 Eosinophils % 1.0 Globulin 3.90 H Glucose Level 146 Hematocrit 22.6 L Hemoglobin 7.9 L Indirect Bilirubin 0.9 Lymphocytes # 4.3 H Lymphocytes % 16.9 Mean Corpuscular Hemoglobin 27.5 L Mean Corpuscular Hemoglobin Concent 34.7 Mean Corpuscular Volume 79.3 L Mean Platelet Volume 6.9 L Monocytes # 1.9 H Monocytes % 7.5 Neutrophils # 19.1 H Neutrophils % 74.5 Nucleated Red Blood Cells # 0.0 Nucleated Red Blood Cells % 0.0 Platelet Count 537 H Potassium Level 3.7 Red Blood Count 2.85 L Red Cell Distribution Width 15.9 H Sodium Level 135 Total Bilirubin 0.9 Total Protein 6.8 White Blood Count 25.6 H Bedside Glucose 162 160 Medications Medications Current Medications Ondansetron HCl (Zofran Inj) 4 mg Q6H PRN IV NAUSEA AND/OR VOMITING Last administered on 04/29/16 18:50; Admin Dose 4 MG; Start 04/28/16 at 11:00 Acetaminophen/ Codeine Phosphate 1 tab 1 tab Q6H PRN PO PAIN Last administered on 05/03/16 13:53; Admin Dose 1 TAB; Start 04/28/16 at 11:00 Acetaminophen (Ofirmev 1000mg/ 100ml Iv) 100 ml @ 400 mls/hr Q6H PRN IVPB PAIN Last administered on 04/28/16 18:17; Admin Dose 400 MLS/HR; Start at 11:00 Sertraline HCl (Zoloft) 100 mg DAILY PO Last administered on 05/04/16 08:19; Admin Dose 100 MG; Start 04/29/16 at 09:00 Miscellaneous Information 1 ea NOTE XX ; Start 04/28/16 at 17:30 Glucose (Glutose) 15 gm Q15M PRN PO DECREASED GLUCOSE; Start 04/28/16 at 17:30 Glucose (Glutose) 22.5 gm Q15M PRN PO DECREASED GLUCOSE; Start 04/28/16 at 17: 30 Dextrose (D50w Syringe) 25 ml Q15M PRN IV DECREASED GLUCOSE; Start 04/28/16 at 17:30 Dextrose (D50w Syringe) 50 ml Q15M PRN IV DECREASED GLUCOSE; Start 04/28/16 at 17:30 Glucagon (Glucagen) 1 mg Q15M PRN IM DECREASED GLUCOSE; Start 04/28/16 at 17:30 Glucose 15 gm 15 gm Q15M PRN BUCCAL DECREASED GLUCOSE; Start 04/28/16 at 17:30 Ceftriaxone Sodium/Sodium Chloride (Rocephin/NS) 50 ml @ 100 mls/hr Q24H IVPB Last administered on 05/03/16 17:00; Admin Dose 100 MLS/HR; Start 04/29/16 at 15:00 Hydromorphone HCl (Dilaudid) 0.5 mg Q2H PRN IV PAIN Last administered on 09:02; Admin Dose 0.5 MG; Start 04/29/16 at 18:30 Pantoprazole (Protonix Iv) 40 mg BID@06,18 IV Last administered on 05/04/16 05 :42; Admin Dose 40 MG; Start 04/30/16 at 06:00 Hydromorphone HCl 1 mg 1 mg Q3H PRN IV PAIN Last administered on 05/04/16 12: 04; Admin Dose 1 MG; Start 04/30/16 at 11:00 Potassium Chloride/Dextrose/ Sod Cl (D5-1/2ns + KCl 20 Meq) 1,000 ml @ 70 mls/ hr [id number] IV Last administered on 05/03/16 23:11; Admin Dose 70 MLS/HR; Start 05/01/16 at 13:00 Alprazolam (Xanax) 1 mg Q12H PRN PO ANXIETY Last administered on 05/03/16 17: 52; Admin Dose 1 MG; Start 05/03/16 at 05:56 Ferrous Sulfate (Ferrous Sulfate (Ec)) 325 mg BID PO ; Start 05/04/16 at 21:00; Status JEB AKBAR MD May 04, 2016 13:07
[2016-05-04] MEDS: CEFTRIAXONE 500 MG in SOD CHLORIDE 0.9% 50 ML IVPB SCH (14:22)
[2016-05-04] MEDS: D5W-0.45 NACL + KCL 20 MEQ 1,000 ML IV SCH ×2 (14:32→15:49)
--- NOTE | 2016-05-04 15:35 | CONS ---
Date/Time of Note Date/Time of Note DATE: 05/04/16 TIME: 15:27 Assessment/Plan Assessment/Plan Chief Complaint/Hosp Course Impression: 1. Symptomatic cholelithiasis, status post laparoscopic cholecystectomy. 2. possible bile leak 3. RUQ abdominal pain 4. iron deficiency anemia 5 obesity 6 leucocytosis Recommendation: 1. f/u MRCP to r/o bile leak 2. if bile leak on MRCP, will need ERCP with stent 3. continue iron replacement 4. I made pt NPO in case 5. Dr. Blair to resume the care of this patient tomorrow Problems: Consultation Date/Type/Reason Admit Date/Time Apr 29, 2016 at 10:27 Type of Consultation: GI Hx of Present Illness 35-year-old female with a past medical history positive for obesity, anxiety and depression and noninsulin-dependent diabetes mellitus. The patient is admitted for symptomatic cholelithiasis s/p laparoscopic cholecystectomy on 04-29. Postoperative RUQ pain gotten progressively worse. Thus, abdominal u/s obtained and showed possible bile leak. She has nausea but no vomiting. No f, c , cp, sob. She has dysuria. all point ros administered, pertinent positives and negatives in HPI otherwise negative. Respiratory: no complaints Cardiovascular: no complaints Gastrointestinal: pain (mild) Genitourinary: no complaints Neurologic: no complaints Past Medical History Medical History: gallstones Past Surgical History Past Surgical Hx: appendectomy, cholecystectomy Family History Significant Family History: diabetes, other (colon cancer) Social History Alcohol Use: occasionally Smoking Status: Never smoker Drug Use: none Exam/Review of Systems Vital Signs Vitals Vital Signs Date Time Temp Pulse Resp B/P Pulse Ox O2 Delivery O2 Flow Rate FiO2 05/04/16 08:00 Nasal Cannula 2.0 05/04/16 07:45 99.3 111 18 126/57 93 Intake and Output 05/03/16 05/03/16 05/04/16 15:00 23:00 07:00 Intake Total 1650 ml 1220 ml Output Total 1300 ml Balance 350 ml 1220 ml Exam Constitutional: alert, oriented, well developed Psych: nl mood/affect, no complaints Head: atraumatic, normocephalic Eyes: EOMI, nl conjunctiva, nl lids, nl sclera ENMT: mucosa pink and moist, nl external ears & nose, nl lips & teeth, nl nasal mucosa & septum Neck: non-tender, supple Respiratory: clear to auscultation, normal air movement Cardiovascular: nl pulses, regular rate and rhythm Gastrointestinal: bowel sounds, soft, tender (RUQ, no r/g) Musculoskeletal: nl extremities to inspection, nl gait and stance Neurological: nl mental status, nl speech, nl strength Results Result Diagram: 05/04/16 0540 05/04/16 0540 Results 24 hrs Laboratory Tests Test 05/03/16 17:11 05/03/16 17:26 05/03/16 20:28 05/03/16 20:50 Bedside Glucose 150 163 Hematocrit 22.8 L Hemoglobin 7.7 L Urine Bacteria MODERATE Urine Bilirubin NEGATIVE Urine Clarity CLEAR Urine Color DELILAH Urine Glucose 0.1% H Urine Hemoglobin 2+ H Urine Ketones 15 Urine Leukocyte Esterase 2+ H Urine Microscopic RBC 10-25 Urine Microscopic WBC 25-50 Urine Mucus MANY Urine Nitrite POSITIVE H Urine Specific [place] 1.020 Urine Squamous Epithelial Cells MANY Urine Total Protein 1+ H Urine Urobilinogen >8.0 E.U./dL H Urine pH 5.0 Test 05/04/16 05:40 05/04/16 07:40 05/04/16 11:40 Alanine Aminotransferase (ALT/SGPT) 47 Albumin 2.9 L Albumin/Globulin Ratio 0.74 Alkaline Phosphatase 108 Anion Gap 11 Aspartate Amino Transf (AST/SGOT) 34 Basophils # 0.0 Basophils % 0.1 Blood Morphology Comment Blood Urea Nitrogen 7 Calcium Level 7.7 L Carbon Dioxide Level 29 Chloride Level 99 Creatinine 0.44 Direct Bilirubin 0.00 Eosinophils # 0.3 Eosinophils % 1.0 Globulin 3.90 H Glucose Level 146 Hematocrit 22.6 L Hemoglobin 7.9 L Indirect Bilirubin 0.9 Lymphocytes # 4.3 H Lymphocytes % 16.9 Mean Corpuscular Hemoglobin 27.5 L Mean Corpuscular Hemoglobin Concent 34.7 Mean Corpuscular Volume 79.3 L Mean Platelet Volume 6.9 L Monocytes # 1.9 H Monocytes % 7.5 Neutrophils # 19.1 H Neutrophils % 74.5 Nucleated Red Blood Cells # 0.0 Nucleated Red Blood Cells % 0.0 Platelet Count 537 H Potassium Level 3.7 Red Blood Count 2.85 L Red Cell Distribution Width 15.9 H Sodium Level 135 Total Bilirubin 0.9 Total Protein 6.8 White Blood Count 25.6 H Bedside Glucose 162 160 Medications Medications Current Medications Ondansetron HCl (Zofran Inj) 4 mg Q6H PRN IV NAUSEA AND/OR VOMITING Last administered on 04/29/16 18:50; Admin Dose 4 MG; Start 04/28/16 at 11:00 Acetaminophen/ Codeine Phosphate 1 tab 1 tab Q6H PRN PO PAIN Last administered on 05/03/16 13:53; Admin Dose 1 TAB; Start 04/28/16 at 11:00 Acetaminophen (Ofirmev 1000mg/ 100ml Iv) 100 ml @ 400 mls/hr Q6H PRN IVPB PAIN Last administered on 04/28/16 18:17; Admin Dose 400 MLS/HR; Start at 11:00 Sertraline HCl (Zoloft) 100 mg DAILY PO Last administered on 05/04/16 08:19; Admin Dose 100 MG; Start 04/29/16 at 09:00 Miscellaneous Information 1 ea NOTE XX ; Start 04/28/16 at 17:30 Glucose (Glutose) 15 gm Q15M PRN PO DECREASED GLUCOSE; Start 04/28/16 at 17:30 Glucose (Glutose) 22.5 gm Q15M PRN PO DECREASED GLUCOSE; Start 04/28/16 at 17: 30 Dextrose (D50w Syringe) 25 ml Q15M PRN IV DECREASED GLUCOSE; Start 04/28/16 at 17:30 Dextrose (D50w Syringe) 50 ml Q15M PRN IV DECREASED GLUCOSE; Start 04/28/16 at 17:30 Glucagon (Glucagen) 1 mg Q15M PRN IM DECREASED GLUCOSE; Start 04/28/16 at 17:30 Glucose 15 gm 15 gm Q15M PRN BUCCAL DECREASED GLUCOSE; Start 04/28/16 at 17:30 Ceftriaxone Sodium/Sodium Chloride (Rocephin/NS) 50 ml @ 100 mls/hr Q24H IVPB Last administered on 05/04/16 14:22; Admin Dose 100 MLS/HR; Start 04/29/16 at 15:00 Hydromorphone HCl (Dilaudid) 0.5 mg Q2H PRN IV PAIN Last administered on 09:02; Admin Dose 0.5 MG; Start 04/29/16 at 18:30 Pantoprazole (Protonix Iv) 40 mg BID@06,18 IV Last administered on 05/04/16 05 :42; Admin Dose 40 MG; Start 04/30/16 at 06:00 Hydromorphone HCl 1 mg 1 mg Q3H PRN IV PAIN Last administered on 05/04/16 15: 14; Admin Dose 1 MG; Start 04/30/16 at 11:00 Potassium Chloride/Dextrose/ Sod Cl (D5-1/2ns + KCl 20 Meq) 1,000 ml @ 70 mls/ hr [id number] IV Last administered on 05/04/16 14:32; Admin Dose 70 MLS/HR; Start 05/01/16 at 13:00 Alprazolam (Xanax) 1 mg Q12H PRN PO ANXIETY Last administered on 05/03/16 17: 52; Admin Dose 1 MG; Start 05/03/16 at 05:56 Ferrous Sulfate (Ferrous Sulfate (Ec)) 325 mg BID PO ; Start 05/04/16 at 21:00 RUBEN GUARDADO MD May 04, 2016 15:35
[2016-05-04] MEDS: ALPRAZOLAM 0.5 MG TAB PO PRN (15:37)
[2016-05-04] MEDS ORDERED: IMIPENEM/CILASTATIN 500 MG in SOD CHLORIDE 0.9% 250 ML IVPB SCH (16:00)
--- NOTE | 2016-05-04 17:18 | PN ---
DATE: 05/03/2016 SUBJECTIVE: Feels better than previous days. Has been passing a lot of gas . Still has some pain, about 7/10. No bowel movement. Has been n.p.o. since noon , and now, it is 5:00 p.m., because they wanted to do ultrasound of the abdomen. OBJECTIVE VITAL SIGNS: As follows: Temperature is 98.3, heart rate is 110, respiratory rate is 20, blood pressure 105/52, saturation 99% on 2 liters nasal cannula. LABORATORY RESULTS: Chemistry: BUN is 8, creatinine is 0.42. AST is 49 slightly elevated Otherwise, the rest of the lft within normal range. Hematology: WBC still is high at 25,500 with 75% segmented. Hemoglobin is 7.9 , hematocrit is 23, stable since 48 hours ago. Platelets are 526. Ultrasound was done today, and the report is as follows 1. Moderate ascites around the liver. Given the history of recent cholecystectomy, considered bile leak with bilious ascites. Findings can be further clarified with HIDA scan or paracentesis. 2. Hepatosplenomegaly. PHYSICAL EXAMINATION GENERAL: On the bedside, the patient is alert, oriented x3. Appears comfortable, lying down in the bed. LUNGS: Clear. HEART: Slightly tachycardia, but regular. ABDOMEN: Not distended. Bowel sound is normal. LEGS: There is no calf tenderness. ASSESSMENT: The patient is status post laparoscopic cholecystectomy, which appears has bled intraperitoneally and now has been stabilizing the past 3 or 4 days. The hemoglobin is not dropping any more since past 48 hours stable 7.9. Has started gradually passing a lot of gas and has been tolerating food soft, low-fat diet tolerated. Today, has had breakfast, but no lunch because was supposed to have ultrasound. The report of the ultrasound was appreciated. I think this is not bilious ascites because the patient's bilirubin is normal and the patient has dropped her hemoglobin, so this appears to be bleeding which has accumulated around the liver, and now, it has stabilized. PLAN: Continue to keep the patient in bed rest. Continue soft, low-fat diet, and observe a few more days. If continues to be stable, then the patient may be discharged next week with iron pills. Plan of care was discussed with Dr. Dixon, and he agrees with the plan of care. Dictated By: BRADLY CORTES/ARGELIA Conf#: [id number] DID#: [id number] MTDD
[2016-05-04] MEDS: IMIPENEM-CILAST 500MG IV (PMX) 100 ML IVPB SCH ×2 (17:42→21:40)
--- NOTE | 2016-05-04 18:47 | PN ---
DATE: 05/04/2016 SUBJECTIVE: She feels better. She is exercising and manipulating the incentive spirometry much better and now the tidal volume is about 900 mL. No bowel movement, passing a lot of gas. Her pathology is okay, tolerating diet. Continues to complain of pain and taking medication every 3 hours for abdominal pain (I am not sure if this is really pain or if she is used to that now). OBJECTIVE: GENERAL: Awake, alert, lying down on the bed. VITAL SIGNS: Temperature 99.3, heart rate 111, respiration 18, 126/57 blood pressure, saturation 93% on 2 liters nasal cannula. LABORATORY DATA: WBC today is 25,600, 74% segmented, H and H 7.9 and 22.6, stable. Chemistry: Calcium is 7.7 low, albumin is 2.7 low. Otherwise, liver function test is normal. ABDOMEN: Soft, minimal tenderness on deep pressure. Plus/minus rebound tenderness. LOWER EXTREMITIES: No calf tenderness. No pitting edema. ASSESSMENT AND PLAN: 1. Status post laparoscopic cholecystectomy. 2. Anemia post-operation. 3. Possibly bleeding in the liver bed with fluid accumulating around the liver has been stable as well as bleeding is concern for the past 3 to 4 days. PLAN: 1. Continue current care. 2. Observation awaiting bowel movement. Started today on ferrous sulfate 325 mg p.o. b.i.d. will do a retic count. Ultrasound report noted Dictated By: BRADLY UGALDE MD PS/NTS Conf#: [id number] DID#: [id number] MTDD
--- NOTE | 2016-05-04 19:32 | CONS ---
DATE OF ADMISSION: 04/29/2016 DATE OF CONSULTATION: 05/04/2016 TYPE OF CONSULTATION: Infectious disease. REASON FOR CONSULTATION: Antibiotic management. HISTORY OF PRESENT ILLNESS: Toshia Perdomo is a 35-year-old female with a number of problems who was brought in the hospital and underwent a laparoscopic cholecystectomy. Her problems include: 1. Obesity. 2. Anxiety and depression. 3. Noninsulin dependent diabetes mellitus. 4. Symptomatic cholelithiasis. The patient underwent laparoscopic cholecystectomy. She experienced postoperative pain. She has la bile blood pressure, is getting IV fluids, and will be admitted for further evaluation and managemen t. PAST SURGICAL HISTORY: Status post open reduction internal fixation of the right ankle fracture in 2006, status post appendectomy. FAMILY HISTORY: Positive for diabetes in the patient. Positive for colon cancer. SOCIAL HISTORY: She lives at home. She uses alcohol occasionally. ALLERGIES: NONE TO PENICILLIN, SULFA, OR FOODS. MEDICATIONS: Per chart. REVIEW OF SYSTEMS: As per HPI. PHYSICAL EXAMINATION: GENERAL: The patient is well-developed, well-nourished, obese female who is alert, responsive, in n o acute distress. VITAL SIGNS: Stable. She is afebrile. SKIN: Without generalized rash. HEENT: Within normal limits. NECK: Supple. LYMPH NODES: None palpable. CHEST: Decreased breath sounds at the bases. HEART: Without murmur or gallop. ABDOMEN: Soft, nontender without organosplenomegaly or masses. Status post laparoscopic cholecyste ctomy with laparoscopic incision intact. RECTAL AND GENITAL: Deferred. NEUROLOGIC: No focal neurological abnormalities. ANCILLARY LABORATORY DATA: On admission, her white count was 13.5, H and H was 12.5 and 37.2, plate let count 379,000. BUN and creatinine is 9/0.45. Glucose is 100, calcium 8.8. White count is 25.6 today, H and H 7.9 and 22.6, platelet count 537,000. BUN and creatinine 7/0.44. Urine showed positive nitrite, 2+ leukocyte esterase, 25 to 50 white cells per high-power field. IMPRESSION AND PLAN: Symptomatic cholelithiasis, status post laparoscopic cholecystectomy. We will continue IV fluids. She was preoperatively on cefazolin. Blood cultures are negative. IMAGING STUDIES: Abdominal ultrasound shows moderate ascites around the liver. Given history of re cent cholecystectomy, consider bile leak with bilious ascites. Findings can be further clarified wi th HIDA scan or paracentesis. Hepatosplenomegaly is present. This was on the . Chest x-ray: Discoid atelectasis is again seen at the lung base, greater on the left than on the right. The sebastian ent is currently on ceftriaxone. ALLERGIES: SHE IS NOT ALLERGIC TO ANYTHING. LABORATORY DATA: As noted, her white count was 25.6. An MRI of the abdomen was ordered. Blood cul tures were ordered. PLAN: Blood cultures were ordered. As noted, her white count on admission, and now her white count was much higher. I am going to switch her to imipenem from ceftriaxone. I will dictate my finding s to Dr. Vazquez. Dictated By: DALTON JONES MD, JD/ARGELIA Conf#: [id number] DID#: [id number] CC: JEB VAZQUEZ MD;*End*
[2016-05-04 20:05] VITALS: BP 123/60; RESP 16
[2016-05-04] MEDS: FERROUS SULFATE (EC) 325 MG TAB PO SCH (20:20)
[2016-05-05] MEDS: HYDROmorphONE 1 MG/ML SYG IV PRN ×8 (00:39→21:35)
[2016-05-05] MEDS: D5W-0.45 NACL + KCL 20 MEQ 1,000 ML IV SCH ×3 (04:19→21:14)
[2016-05-05] MEDS: PANTOPRAZOLE 40 MG INJ IV SCH ×2 (05:20→17:31)
[2016-05-05] MEDS: IMIPENEM-CILAST 500MG IV (PMX) 100 ML IVPB SCH ×3 (05:21→21:14)
[2016-05-05 05:49] LABS: ALBUMIN 3.1 g/dl (3.3-4.9)
[2016-05-05 05:50] LABS: POTASSIUM 3.7 mmol/L (3.5-5.1)
[2016-05-05 05:52] LABS: BILIRUBIN,INDIRECT 0.8 mg/dl (0-1.1); BILIRUBIN,TOTAL 0.8 mg/dl (0.2-1.3); CREATININE 0.41 mg/dl (0.44-1.00)
[2016-05-05 05:53] LABS: ALBUMIN/GLOBULIN RATIO 0.81; CALCIUM 7.5 mg/dl (8.4-10.2); TOTAL PROTEIN 6.9 g/dl (6.1-8.1)
[2016-05-05 06:24] LABS: HEMATOCRIT 22.3 % (37.0-47.0); HEMOGLOBIN 7.6 g/dl (12.0-16.0); MEAN CORPUSCULAR HEMOGLOBIN 27.4 pg (29.0-33.0); MEAN CORPUSCULAR HGB CONC 34.3 g/dl (32.0-37.0); MEAN CORPUSCULAR VOLUME 79.9 fl (82.0-101.0); MEAN PLATELET VOLUME 6.8 fl (7.4-10.4); PLATELET COUNT 536 10^3/UL (140-440); RED BLOOD COUNT 2.79 10^6/ul (4.20-5.40); RED CELL DISTRIBUTION WIDTH 16.7 % (11.5-14.5); RETICULOCYTE COUNT % 4.8 % (0.5-1.5); UNCORRECTED WBC 25.8 10^3/ul (4.8-10.8); WHITE BLOOD COUNT 25.8 10^3/ul (4.8-10.8)
[2016-05-05 06:35] LABS: CONDITION 1; LH ANALYZER COMMENTS 1; SUSPECT 1
[2016-05-05 07:42] VITALS: BP 119/62; RESP 18
[2016-05-05 07:44] VITALS: BP 119/62; RESP 18
[2016-05-05] MEDS: metFORMIN 500 MG TAB PO SCH (08:00)
--- NOTE | 2016-05-05 08:07 | RADRPT ---
PROCEDURE: MRCP. CLINICAL INDICATION: Right upper quadrant pain. TECHNIQUE: Axial single shot fast-spin echo, axial and coronal fat-saturated FIESTA, single-shot M MUSIC DIRECTOR using both thick and thin-slab collimation, and 3D MRCP were performed. COMPARISON: Ultrasound, 05/03/2016. FINDINGS: See impression. IMPRESSION: Essentially nondiagnostic evaluation due to extensive standing wave artifact related to body habitus and upper abdominal ascites with resultant poor visualization of the biliary system. Consider contrast enhanced CT of the abdomen. If there is concern for retained stones, recommend ER CP. RPTAT: EE .Deyvi Sterling MD, MD Date Time Electronically viewed and signed by .Deyvi Sterling MD, MD on 05/05/2016 08:11 .C/
[2016-05-05] MEDS: SERTRALINE 100 MG TAB PO SCH (08:38)
[2016-05-05] MEDS: FERROUS SULFATE (EC) 325 MG TAB PO SCH ×2 (08:38→20:52)
[2016-05-05] MEDS: INSULIN ASPART [NOVOLOG] 3 ML PEN SC SCH ×4 (09:08→20:48)
[2016-05-05 09:59] LABS: LYMPHOCYTES # 3.9 10^3/ul (0.8-2.9); MONOCYTE # 2.1 10^3/ul (0.3-0.9); NEUTROPHIL # 18.8 10^3/ul (1.6-7.5)
[2016-05-05 10:00] LABS: ANISOCYTOSIS 1+; HYPOCHROMASIA 1+; MICROCYTOSIS 1+
[2016-05-05] MEDS: ALPRAZOLAM 0.5 MG TAB PO PRN (12:34)
--- NOTE | 2016-05-05 13:44 | PN ---
DATE: 05/05/2016 INFECTIOUS DISEASE PROGRESS NOTE SUBJECTIVE: No acute changes. The patient is lying comfortably in bed, still has some abdominal di scomfort. No fevers. VITAL SIGNS: T-max 99.5 WBC today 25.8, H and H 7.6 and 22.3, platelets 536, no bands. BUN 6, creatinine 0.41. MICROBIOLOGY: Blood cultures negative. ANTIMICROBIALS: Imipenem status post Rocephin. PHYSICAL EXAMINATION: GENERAL: This is a morbidly obese, middle-aged woman who is lying comfortably in bed. HEENT: Head atraumatic, normocephalic. Sclerae anicteric. Buccal mucosa dry. NECK: Supple. CHEST: Rise symmetrical. Breath sounds diminished to bases. HEART: S1, S2. ABDOMEN: Distended, soft. Some tenderness on palpation. EXTREMITIES: Without cyanosis. ASSESSMENT: 1. Systemic inflammatory response syndrome with persistent leukocytosis, possibly early sepsis. 2. Morbid obesity. 3. Status post laparoscopic cholecystectomy with anemia, possibly bleeding in the liver bed with fl uid accumulation. PLAN: Continue present care, antibiotics. Monitor H and H, transfuse as needed and follow surgical recommendations. Dictated By: ABNER BALL SUPPORT TEAM MEMBER for DALTON LOPEZ/ARGELIA Conf#: [id number] DID#: [id number]
[2016-05-05] MEDS ORDERED: IODIXANOL LOCM 100 ML BTL ONE (14:47)
[2016-05-05] MEDS ORDERED: SOD CHLORIDE 0.9% 100 ML ONE (14:47)
[2016-05-05] MEDS ORDERED: IODIXANOL LOCM 50 ML BTL ONE (14:47)
--- NOTE | 2016-05-05 15:28 | RADRPT ---
PROCEDURE: CT Abdomen and Pelvis with Contrast CLINICAL INDICATION: Possible pulmonary embolism TECHNIQUE: Transaxial images were obtained through the abdomen and pelvis on a multi-slice scanner following the intravenous administration of iodinated contrast. No oral contrast had previously be en given. Sagittal and coronal re-formations were subsequently reconstructed. One or more of the following dose reduction techniques were used: - Automated exposure control. - Adjustment of the mA and/or kV according to patient size. - Use of iterative reconstruction technique. Radiation dose: CTDIvol = 114.38 mGy; DLP = 1754.96 mGy-cm. COMPARISON: No prior studies are available for comparison. FINDINGS: Lung bases: There is subsegmental atelectasis within the right lower lobe and discoid atelectasis wi thin the left lower lobe. Liver: The liver is enlarged but no focal lesion is evident and the hepatic and portal veins are pat ent. Gallbladder: Surgical nitin are seen in the gallbladder fossa. Bile ducts: The intra and extrahepatic bile ducts are normal in caliber. Pancreas: Appears normal with no mass or inflammation evident. Spleen: The spleen is borderline enlarged. Adrenals: Normal with no mass identified. Kidneys, ureters and bladder: The left kidney is rotated on its axis with the longitudinal dimension and seen in the transverse plane. The kidneys are otherwise unremarkable with no mass, intrarenal calcification, or hydronephrosis evident. The ureters and bladder appear unremarkable. Reproductive organs: The uterus is midline and no adnexal mass is identified. Stomach, bowel, and mesentery: The bowel appears unremarkable with no evidence of bowel obstruction or inflammation. The stomach appears unremarkable. Appendix: The vermiform appendix is not discretely identified. Peritoneum: There is a moderate amount of free intraperitoneal fluid that measures approximately 12 HU and is most significant within the right subphrenic and subhepatic space but also within the cul- de-sac. No free air is identified. Aorta: Normal in caliber with no aneurysmal dilatation. IVC: Unremarkable. Lymph nodes: No pathologically enlarged nodes are identified. Osseous structures: The osseous elements appear intact. IMPRESSION: 1. Hepatomegaly with no focal lesion. The spleen is borderline enlarged. 2. Status post cholecystectomy with no bile duct dilatation or pancreatic pathology evident. 3. No evidence of bowel obstruction or inflammation. The vermiform appendix is not discretely iden tified. 4. Rotated right kidney without evidence of urinary outflow obstruction or ureterolithiasis. 5. Moderate amount of free intraperitoneal fluid measuring 12 HU with no free air identified. 6. Subsegmental atelectasis seen at the right lower lobe with discoid atelectasis seen at the left posterior sulcus. Physician Sylvia Date Time Electronically viewed and signed by Gentry Quijano Physician on 05/05/2016 15:27 RH/
--- NOTE | 2016-05-05 15:35 | RADRPT ---
PROCEDURE: CT Pulmonary Angiogram CLINICAL INDICATION: Rule out pulmonary embolism TECHNIQUE: Volumetric acquisition of the thorax was performed following the intravenous administra tion of contrast with the bolus of contrast time to maximize pulmonary artery opacification. One or more of the following dose reduction techniques were used: - Automated exposure control. - Adjustment of the mA and/or kV according to patient size. - Use of iterative reconstruction technique. Radiation Dose: CTDI = 114.38 mGy; DLP = 1754.96 mGy-cm. COMPARISON: None. FINDINGS: Pulmonary Arteries: There is less than optimal opacification of the pulmonary arteries but no intrin sic filling defect is identified to suggest pulmonary embolization. Other cardiovascular structures: The heart is upper normal in size and the aorta is normal in calibe r and appears intact with the previous cephalic vessels patent. Lung philippe: There is a somewhat nodular infiltrate within the right upper lobe. Subsegmental atele ctasis is seen within the right lower lobe and discoid atelectasis is seen in the left lower lobe an d posterior upper lobes. The pleural spaces: No effusion or pneumothorax is identified. Lymph nodes: No pathologically enlarged nodes are evident. Thyroid: Unremarkable. Superior abdominal structures: The liver appears prominent as is the spleen and there is a moderate amount of free intraperitoneal fluid. Surgical nitin are seen in the gallbladder fossa. Osseous structures: Mild degenerative spine changes are noted. IMPRESSION: 1. There is less than optimal opacification of the pulmonary arteries but no intrinsic filling defe ct is identified to indicate the presence of pulmonary embolization. The heart is normal in size an d the aorta is normal in caliber and appears intact. 2. Subsegmental atelectasis is evident in the right lower lobe and discoid atelectasis is seen with in the left lung base and the posterior upper lobes. A somewhat nodular infiltrate is seen within t he right upper lobe. 3. No adenopathy is evident. 4. Moderate amount of free intraperitoneal fluid with the liver and spleen appearing prominent. 5. Status post cholecystectomy. Physician Sylvia Date Time Electronically viewed and signed by Physician Sylvia on 05/05/2016 15:35 RH/
--- NOTE | 2016-05-05 15:51 | CONS ---
Date/Time of Note Date/Time of Note DATE: 05/05/16 TIME: 15:50 Assessment/Plan Assessment/Plan Additional Assessment/Plan Impression: 1. Symptomatic cholelithiasis, status post laparoscopic cholecystectomy. 2. possible bile leak 3. RUQ abdominal pain 4. iron deficiency anemia 5 obesity 6 leucocytosis Recommendation: 1. f/u MRCP to r/o bile leak 2. if bile leak on MRCP, will need ERCP with stent 3. continue iron replacement 4. I made pt NPO in case 5.hida scan for bile leak Consultation Date/Type/Reason Admit Date/Time Apr 29, 2016 at 10:27 Initial Consult Date Type of Consultation: GI 24 HR Interval Summary Free Text/Dictation abdominal pain Exam/Review of Systems Vital Signs Vitals Vital Signs Date Time Temp Pulse Resp B/P Pulse Ox O2 Delivery O2 Flow Rate FiO2 05/05/16 09:00 Nasal Cannula 2.0 05/05/16 07:44 99.0 104 18 119/62 98 Intake and Output 05/04/16 05/04/16 05/05/16 15:00 23:00 07:00 Intake Total 1560 ml 700 ml Balance 1560 ml 700 ml Exam Eyes: EOMI, PERRL, nl conjunctiva, nl lids, nl sclera Neck: non-tender, supple Respiratory: clear to auscultation, normal air movement Cardiovascular: nl pulses, regular rate and rhythm Gastrointestinal: tender (rt upper quadrant) Extremities: normal pulses Results Result Diagram: 05/05/16 0445 05/05/16 0445 Results 24 hrs Laboratory Tests Test 05/04/16 16:59 05/04/16 20:15 05/05/16 02:22 05/05/16 04:45 Bedside Glucose 147 197 139 Absolute Reticulocyte Count 0.135 H Alanine Aminotransferase (ALT/SGPT) 38 Albumin 3.1 L Albumin/Globulin Ratio 0.81 Alkaline Phosphatase 119 Anion Gap 13 Anisocytosis 1+ Aspartate Amino Transf (AST/SGOT) 33 Band Neutrophils % 4.0 Blood Morphology Comment Blood Urea Nitrogen 6 L Calcium Level 7.5 L Carbon Dioxide Level 30 Chloride Level 98 Creatinine 0.41 L Differential Comment MANUAL DIFF Direct Bilirubin 0.00 Globulin 3.80 H Glucose Level 150 Hematocrit 22.3 L Hemoglobin 7.6 L Hypochromasia 1+ Indirect Bilirubin 0.8 Lymphocytes # 3.9 H Lymphocytes % 15.0 Mean Corpuscular Hemoglobin 27.4 L Mean Corpuscular Hemoglobin Concent 34.3 Mean Corpuscular Volume 79.9 L Mean Platelet Volume 6.8 L Microcytosis 1+ Monocytes # 2.1 H Monocytes % 8.0 Neutrophils # 18.8 H Neutrophils % 73.0 Nucleated Red Blood Cells % 1.0 H Percent Reticulocyte Count 4.8 H Platelet Count 536 H Potassium Level 3.7 Red Blood Count 2.79 L Red Cell Distribution Width 16.7 H Sodium Level 137 Total Bilirubin 0.8 Total Protein 6.9 White Blood Count 25.8 H Test 05/05/16 08:00 05/05/16 11:29 Bedside Glucose 158 142 Medications Medications Current Medications Ondansetron HCl (Zofran Inj) 4 mg Q6H PRN IV NAUSEA AND/OR VOMITING Last administered on 04/29/16 18:50; Admin Dose 4 MG; Start 04/28/16 at 11:00 Acetaminophen/ Codeine Phosphate 1 tab 1 tab Q6H PRN PO PAIN Last administered on 05/03/16 13:53; Admin Dose 1 TAB; Start 04/28/16 at 11:00 Acetaminophen (Ofirmev 1000mg/ 100ml Iv) 100 ml @ 400 mls/hr Q6H PRN IVPB PAIN Last administered on 04/28/16 18:17; Admin Dose 400 MLS/HR; Start at 11:00 Sertraline HCl (Zoloft) 100 mg DAILY PO Last administered on 05/04/16 08:19; Admin Dose 100 MG; Start 04/29/16 at 09:00 Miscellaneous Information 1 ea NOTE XX ; Start 04/28/16 at 17:30 Glucose (Glutose) 15 gm Q15M PRN PO DECREASED GLUCOSE; Start 04/28/16 at 17:30 Glucose (Glutose) 22.5 gm Q15M PRN PO DECREASED GLUCOSE; Start 04/28/16 at 17: 30 Dextrose (D50w Syringe) 25 ml Q15M PRN IV DECREASED GLUCOSE; Start 04/28/16 at 17:30 Dextrose (D50w Syringe) 50 ml Q15M PRN IV DECREASED GLUCOSE; Start 04/28/16 at 17:30 Glucagon (Glucagen) 1 mg Q15M PRN IM DECREASED GLUCOSE; Start 04/28/16 at 17:30 Glucose (Glutose) 15 gm Q15M PRN BUCCAL DECREASED GLUCOSE; Start 04/28/16 at 17 :30 Hydromorphone HCl (Dilaudid) 0.5 mg Q2H PRN IV PAIN Last administered on 09:02; Admin Dose 0.5 MG; Start 04/29/16 at 18:30 Pantoprazole (Protonix Iv) 40 mg BID@06,18 IV Last administered on 05/05/16 05 :20; Admin Dose 40 MG; Start 04/30/16 at 06:00 Hydromorphone HCl 1 mg 1 mg Q3H PRN IV PAIN Last administered on 05/05/16 13: 03; Admin Dose 1 MG; Start 04/30/16 at 11:00 Potassium Chloride/Dextrose/ Sod Cl (D5-1/2ns + KCl 20 Meq) 1,000 ml @ 80 mls/ hr [id number] IV Last administered on 05/05/16 04:19; Admin Dose 80 MLS/HR; Start 05/01/16 at 13:00 Alprazolam (Xanax) 1 mg Q12H PRN PO ANXIETY Last administered on 05/05/16 12: 34; Admin Dose 1 MG; Start 05/03/16 at 05:56 Ferrous Sulfate 325 mg 325 mg BID PO ; Start 05/04/16 at 21:00 Imipenem/ Cilastatin Sodium (Primaxin 500 Mg/ 100 ml (Pmx)) 100 ml @ 100 mls/ hr Q8 IVPB Last administered on 05/05/16 14:07; Admin Dose 100 MLS/HR; Start 05/04/16 at 16:00 JESUS AGUILAR MD May 05, 2016 15:51
--- NOTE | 2016-05-05 16:01 | PN ---
Date/Time of Note Date/Time of Note DATE: 05/05/16 TIME: 16:00 Assessment/Plan VTE Prophylaxis VTE Prophylaxis Intervention: other Lines/Catheters IV Catheter Type (from [facility]): Peripheral IV Urinary Cath still in place: No Reason Cath still needed: other (indicate) Assessment/Plan Chief Complaint/Hosp Course 1. Symptomatic cholelithiasis, status post laparoscopic cholecystectomy. Will continue IV fluids. 2. Noninsulin-dependent diabetes mellitus. 3. Obesity. 4. Anxiety and depression. 5 obesity 6 leucocytosis 7 post op anemia 8 r/o bileleak plan antibiotic ck labs per surgery dr ramos to see called dr maddox to see Problems: Subjective 24 Hr Interval Summary Cardiovascular: no complaints Gastrointestinal: no complaints Exam/Review of Systems Vital Signs Vitals Vital Signs Date Time Temp Pulse Resp B/P Pulse Ox O2 Delivery O2 Flow Rate FiO2 05/05/16 09:00 Nasal Cannula 2.0 05/05/16 07:44 99.0 104 18 119/62 98 Intake and Output 05/04/16 05/04/16 05/05/16 15:00 23:00 07:00 Intake Total 1560 ml 700 ml Balance 1560 ml 700 ml Exam Respiratory: clear to auscultation Cardiovascular: regular rate and rhythm Gastrointestinal: bowel sounds (+), soft Extremities: No edema Results Result Diagram: 05/05/1644405/05/16444 Results 24 hrs Laboratory Tests Test 05/04/16 16:59 05/04/16 20:15 05/05/16 02:22 05/05/16 04:45 Bedside Glucose 147 197 139 Absolute Reticulocyte Count 0.135 H Alanine Aminotransferase (ALT/SGPT) 38 Albumin 3.1 L Albumin/Globulin Ratio 0.81 Alkaline Phosphatase 119 Anion Gap 13 Anisocytosis 1+ Aspartate Amino Transf (AST/SGOT) 33 Band Neutrophils % 4.0 Blood Morphology Comment Blood Urea Nitrogen 6 L Calcium Level 7.5 L Carbon Dioxide Level 30 Chloride Level 98 Creatinine 0.41 L Differential Comment MANUAL DIFF Direct Bilirubin 0.00 Globulin 3.80 H Glucose Level 150 Hematocrit 22.3 L Hemoglobin 7.6 L Hypochromasia 1+ Indirect Bilirubin 0.8 Lymphocytes # 3.9 H Lymphocytes % 15.0 Mean Corpuscular Hemoglobin 27.4 L Mean Corpuscular Hemoglobin Concent 34.3 Mean Corpuscular Volume 79.9 L Mean Platelet Volume 6.8 L Microcytosis 1+ Monocytes # 2.1 H Monocytes % 8.0 Neutrophils # 18.8 H Neutrophils % 73.0 Nucleated Red Blood Cells % 1.0 H Percent Reticulocyte Count 4.8 H Platelet Count 536 H Potassium Level 3.7 Red Blood Count 2.79 L Red Cell Distribution Width 16.7 H Sodium Level 137 Total Bilirubin 0.8 Total Protein 6.9 White Blood Count 25.8 H Test 05/05/16 08:00 05/05/16 11:29 Bedside Glucose 158 142 Medications Medications Current Medications Ondansetron HCl (Zofran Inj) 4 mg Q6H PRN IV NAUSEA AND/OR VOMITING Last administered on 04/29/16 18:50; Admin Dose 4 MG; Start 04/28/16 at 11:00 Acetaminophen/ Codeine Phosphate 1 tab 1 tab Q6H PRN PO PAIN Last administered on 05/03/16 13:53; Admin Dose 1 TAB; Start 04/28/16 at 11:00 Acetaminophen (Ofirmev 1000mg/ 100ml Iv) 100 ml @ 400 mls/hr Q6H PRN IVPB PAIN Last administered on 04/28/16 18:17; Admin Dose 400 MLS/HR; Start at 11:00 Sertraline HCl (Zoloft) 100 mg DAILY PO Last administered on 05/04/16 08:19; Admin Dose 100 MG; Start 04/29/16 at 09:00 Miscellaneous Information 1 ea NOTE XX ; Start 04/28/16 at 17:30 Glucose (Glutose) 15 gm Q15M PRN PO DECREASED GLUCOSE; Start 04/28/16 at 17:30 Glucose (Glutose) 22.5 gm Q15M PRN PO DECREASED GLUCOSE; Start 04/28/16 at 17: 30 Dextrose (D50w Syringe) 25 ml Q15M PRN IV DECREASED GLUCOSE; Start 04/28/16 at 17:30 Dextrose (D50w Syringe) 50 ml Q15M PRN IV DECREASED GLUCOSE; Start 04/28/16 at 17:30 Glucagon (Glucagen) 1 mg Q15M PRN IM DECREASED GLUCOSE; Start 04/28/16 at 17:30 Glucose (Glutose) 15 gm Q15M PRN BUCCAL DECREASED GLUCOSE; Start 04/28/16 at 17 :30 Hydromorphone HCl (Dilaudid) 0.5 mg Q2H PRN IV PAIN Last administered on 09:02; Admin Dose 0.5 MG; Start 04/29/16 at 18:30 Pantoprazole (Protonix Iv) 40 mg BID@06,18 IV Last administered on 05/05/16 05 :20; Admin Dose 40 MG; Start 04/30/16 at 06:00 Hydromorphone HCl 1 mg 1 mg Q3H PRN IV PAIN Last administered on 05/05/16 15: 52; Admin Dose 1 MG; Start 04/30/16 at 11:00 Potassium Chloride/Dextrose/ Sod Cl (D5-1/2ns + KCl 20 Meq) 1,000 ml @ 80 mls/ hr [id number] IV Last administered on 05/05/16 04:19; Admin Dose 80 MLS/HR; Start 05/01/16 at 13:00 Alprazolam (Xanax) 1 mg Q12H PRN PO ANXIETY Last administered on 05/05/16 12: 34; Admin Dose 1 MG; Start 05/03/16 at 05:56 Ferrous Sulfate 325 mg 325 mg BID PO ; Start 05/04/16 at 21:00 Imipenem/ Cilastatin Sodium (Primaxin 500 Mg/ 100 ml (Pmx)) 100 ml @ 100 mls/ hr Q8 IVPB Last administered on 05/05/16 14:07; Admin Dose 100 MLS/HR; Start 05/04/16 at 16:00 JEB VAZQUEZ MD May 05, 2016 16:01
[2016-05-05 18:27] VITALS: BP 126/66; PULSE 113; RESP 18
[2016-05-05 20:39] VITALS: BP 129/57; RESP 20
--- NOTE | 2016-05-05 21:25 | PN ---
DATE: SUBJECTIVE: Patient is hungry. She has been kept n.p.o. today because she was supposed to have some blood tests done today. She states that she has been passing a lot of gas. She feels it is slightly better than the other days. No nausea, no vomiting. She complains the pain is almost the same. She is using pain medication, IV. OBJECTIVE: GENERAL: Alert, awake, laying down on the bed, slightly tachypneic. VITAL SIGNS: Temperature is 99, heart rate 104, respiration 18, blood pressure 119/62, saturation 98% on 2 liters nasal cannula. LABORATORY DATA: Today WBC 25,800, hemoglobin is 7.6, hematocrit is 22.3. Differential is 73%, normal. Retic count is actually 4.8, which is quite high, sign of bleeding, recent bleeding. ABDOMEN: Soft. HEART: Regular. LUNGS: Decreased breathing sound at bases. LOWER EXTREMITIES: No calf tenderness. No pitting edema. ASSESSMENT AND PLAN: I saw the patient along with Dr. Dixon. He examined the patient as well. Considering the relative tachypnea and a low saturation which is 93%, Dr. Dixon suggested that she get a CT angio of the lungs and a CT abdomen with intravenous contrast. This actually was done and CT angio did not reveal evidence of any pulmonary emboli, only shows several segmental and subsegmental atelectasis. CT of abdomen, of course, shows presence of fluid in the belly. They have not mentioned if she is compatible with consistency consistent with blood or what is the consistency of this fluid but we believe that this is blood, because definitely the patient dropped her hemoglobin and also the retic count is 4.8 which is high. On the other hand, our colleagues have ordered other tests like MRI of the abdomen which was not conclusive and Dr. Blair appreciates he has seen the patient and he has ordered a HIDA scan. We doubted that there is any problem with leakage, but of course this is a good test to be done and we are waiting for the results of that when it is done. PLAN: Continue current care. Dr. Dixon suggested not to draw blood every day for blood workup so that it does not make the patient more anemic. I will start the patient on ferrous sulfate 325 mg p.o. b.i.d. Will keep the patient with current care and started her back on low fat diet. Dictated By: BRADLY CORTES/ARGELIA Conf#: [id number] DID#: [id number]
[2016-05-06] MEDS: HYDROmorphONE 1 MG/ML SYG IV PRN ×8 (00:27→23:29)
[2016-05-06] MEDS: PANTOPRAZOLE 40 MG INJ IV SCH ×2 (05:34→17:09)
[2016-05-06] MEDS: IMIPENEM-CILAST 500MG IV (PMX) 100 ML IVPB SCH ×3 (05:34→23:25)
[2016-05-06 06:08] LABS: POTASSIUM 4.1 mmol/L (3.5-5.1)
[2016-05-06 06:10] LABS: CREATININE 0.41 mg/dl (0.44-1.00)
[2016-05-06 06:11] LABS: ALBUMIN/GLOBULIN RATIO 0.83; BILIRUBIN,INDIRECT 0.6 mg/dl (0-1.1); BILIRUBIN,TOTAL 0.6 mg/dl (0.2-1.3); TOTAL PROTEIN 6.6 g/dl (6.1-8.1)
[2016-05-06 06:12] LABS: CALCIUM 7.5 mg/dl (8.4-10.2)
[2016-05-06 07:04] LABS: EOSINOPHILS # 0.2 10^3/ul (0.0-0.5); HEMATOCRIT 22.3 % (37.0-47.0); HEMOGLOBIN 7.4 g/dl (12.0-16.0); MEAN CORPUSCULAR HGB CONC 33.3 g/dl (32.0-37.0); MEAN CORPUSCULAR VOLUME 81.1 fl (82.0-101.0); MEAN PLATELET VOLUME 6.8 fl (7.4-10.4); PLATELET COUNT 546 10^3/UL (140-440); RED BLOOD COUNT 2.74 10^6/ul (4.20-5.40); RED CELL DISTRIBUTION WIDTH 16.6 % (11.5-14.5); UNCORRECTED WBC 23.3 10^3/ul (4.8-10.8); WHITE BLOOD COUNT 23.3 10^3/ul (4.8-10.8)
[2016-05-06 07:29] LABS: CONDITION 1; LH ANALYZER COMMENTS 1; SUSPECT 1
[2016-05-06] MEDS: INSULIN ASPART [NOVOLOG] 3 ML PEN SC SCH ×4 (08:00→20:24)
[2016-05-06 08:15] VITALS: BP 116/57; RESP 18
[2016-05-06] MEDS: FERROUS SULFATE (EC) 325 MG TAB PO SCH ×2 (10:52→20:21)
[2016-05-06] MEDS: SERTRALINE 100 MG TAB PO SCH (10:52)
[2016-05-06] MEDS: ALPRAZOLAM 0.5 MG TAB PO PRN ×2 (10:59→20:27)
--- NOTE | 2016-05-06 12:49 | RADRPT ---
PROCEDURE: HIDA scan CLINICAL INDICATION: 35 -year-old patient with status post cholecystectomy, complaining of abdomin al pain. TECHNIQUE: Following the intravenous injection of 8.2 mCi of Tc-99m mebrofenin, multiple images of the abdomen were obtained up to 35 minutes post injection. The patient was unable to tolerate addit ional imaging. COMPARISON: No prior studies. CT scan of the abdomen and pelvis dated May 05, 2016. FINDINGS: The liver is promptly visualized, demonstrates homogeneous distribution of radionuclide. There is visualization of the common bile duct and gastrointestinal activity within normal time. The gallbladder is not visualized up to 35 minutes post injection. IMPRESSION: 1. No scintigraphic evidence of biliary leak. 2. No evidence of common bile duct obstruction. 3. Nonvisualization of the gallbladder compatible with the prior cholecystectomy. RPTAT: HH .Vivien Pfeiffer MD, Date Time Electronically viewed and signed by .Vivien Pfeiffer MD, on 05/06/2016 12:48 .L/
[2016-05-06 13:23] LABS: LYMPHOCYTES # 3.5 10^3/ul (0.8-2.9); MONOCYTE # 0.5 10^3/ul (0.3-0.9); NEUTROPHIL # 17.9 10^3/ul (1.6-7.5)
[2016-05-06] MEDS: ONDANSETRON 4 MG INJ IV PRN (16:48)
[2016-05-06] MEDS: D5W-0.45 NACL + KCL 20 MEQ 1,000 ML IV SCH (16:53)
--- NOTE | 2016-05-06 17:04 | PN ---
Date/Time of Note Date/Time of Note DATE: 05/06/16 TIME: 17:03 Assessment/Plan VTE Prophylaxis VTE Prophylaxis Intervention: other Lines/Catheters IV Catheter Type (from [facility]): Peripheral IV Urinary Cath still in place: No Assessment/Plan Chief Complaint/Hosp Course 1. Symptomatic cholelithiasis, status post laparoscopic cholecystectomy. Will continue IV fluids. 2. Noninsulin-dependent diabetes mellitus. 3. Obesity. 4. Anxiety and depression. 5 obesity 6 leucocytosis 7 post op anemia 8 HIDA NEG plan antibiotic ck labs per surgery dr richard Casarez Problems: Subjective 24 Hr Interval Summary Respiratory: no complaints Cardiovascular: no complaints Gastrointestinal: no complaints Exam/Review of Systems Vital Signs Vitals Vital Signs Date Time Temp Pulse Resp B/P Pulse Ox O2 Delivery O2 Flow Rate FiO2 05/06/16 11:44 Nasal Cannula 2.0 05/06/16 08:15 97.8 104 18 116/57 98 Intake and Output 05/05/16 05/05/16 05/06/16 15:00 23:00 07:00 Intake Total 1500 ml 1055 ml Balance 1500 ml 1055 ml Exam Neck: supple Respiratory: clear to auscultation Cardiovascular: regular rate and rhythm Gastrointestinal: bowel sounds (+), non-tender, soft Results Result Diagram: 05/06/1652105/06/16 0522 Results 24 hrs Laboratory Tests Test 05/05/16 19:41 05/06/16 05:22 05/06/16 08:19 05/06/16 11:06 Bedside Glucose 161 139 141 Alanine Aminotransferase (ALT/SGPT) 32 Albumin 3.0 L Albumin/Globulin Ratio 0.83 Alkaline Phosphatase 122 H Anion Gap 15 Aspartate Amino Transf (AST/SGOT) 31 Basophils # 0.0 Basophils % 0.0 Blood Morphology Comment Blood Urea Nitrogen 4 L Calcium Level 7.5 L Carbon Dioxide Level 29 Chloride Level 97 Creatinine 0.41 L Direct Bilirubin 0.00 Eosinophils # 0.2 Eosinophils % 1.0 Globulin 3.60 H Glucose Level 153 Hematocrit 22.3 L Hemoglobin 7.4 L Indirect Bilirubin 0.6 Lymphocytes # 3.5 H Lymphocytes % 15.0 Mean Corpuscular Hemoglobin 27.0 L Mean Corpuscular Hemoglobin Concent 33.3 Mean Corpuscular Volume 81.1 L Mean Platelet Volume 6.8 L Monocytes # 0.5 Monocytes % 2.0 Neutrophils # 17.9 H Neutrophils % 77.0 Nucleated Red Blood Cells # 0.0 Nucleated Red Blood Cells % 2.0 H Platelet Count 546 H Potassium Level 4.1 Red Blood Count 2.74 L Red Cell Distribution Width 16.6 H Sodium Level 137 Total Bilirubin 0.6 Total Protein 6.6 White Blood Count 23.3 H Test 05/06/16 16:42 Bedside Glucose 148 Medications Medications Current Medications Ondansetron HCl (Zofran Inj) 4 mg Q6H PRN IV NAUSEA AND/OR VOMITING Last administered on 05/06/16 16:48; Admin Dose 4 MG; Start 04/28/16 at 11:00 Acetaminophen/ Codeine Phosphate 1 tab 1 tab Q6H PRN PO PAIN Last administered on 05/03/16 13:53; Admin Dose 1 TAB; Start 04/28/16 at 11:00 Acetaminophen (Ofirmev 1000mg/ 100ml Iv) 100 ml @ 400 mls/hr Q6H PRN IVPB PAIN Last administered on 04/28/16 18:17; Admin Dose 400 MLS/HR; Start at 11:00 Sertraline HCl (Zoloft) 100 mg DAILY PO Last administered on 05/06/16 10:52; Admin Dose 100 MG; Start 04/29/16 at 09:00 Miscellaneous Information 1 ea NOTE XX ; Start 04/28/16 at 17:30 Glucose (Glutose) 15 gm Q15M PRN PO DECREASED GLUCOSE; Start 04/28/16 at 17:30 Glucose (Glutose) 22.5 gm Q15M PRN PO DECREASED GLUCOSE; Start 04/28/16 at 17: 30 Dextrose (D50w Syringe) 25 ml Q15M PRN IV DECREASED GLUCOSE; Start 04/28/16 at 17:30 Dextrose (D50w Syringe) 50 ml Q15M PRN IV DECREASED GLUCOSE; Start 04/28/16 at 17:30 Glucagon (Glucagen) 1 mg Q15M PRN IM DECREASED GLUCOSE; Start 04/28/16 at 17:30 Glucose (Glutose) 15 gm Q15M PRN BUCCAL DECREASED GLUCOSE; Start 04/28/16 at 17 :30 Hydromorphone HCl (Dilaudid) 0.5 mg Q2H PRN IV PAIN Last administered on 09:02; Admin Dose 0.5 MG; Start 04/29/16 at 18:30 Pantoprazole (Protonix Iv) 40 mg BID@06,18 IV Last administered on 05/06/16 05 :34; Admin Dose 40 MG; Start 04/30/16 at 06:00 Hydromorphone HCl 1 mg 1 mg Q3H PRN IV PAIN Last administered on 05/06/16 16: 48; Admin Dose 1 MG; Start 04/30/16 at 11:00 Potassium Chloride/Dextrose/ Sod Cl (D5-1/2ns + KCl 20 Meq) 1,000 ml @ 80 mls/ hr [id number] IV Last administered on 05/06/16 16:53; Admin Dose 80 MLS/HR; Start 05/01/16 at 13:00 Alprazolam (Xanax) 1 mg Q12H PRN PO ANXIETY Last administered on 05/06/16 10: 59; Admin Dose 1 MG; Start 05/03/16 at 05:56 Ferrous Sulfate 325 mg 325 mg BID PO Last administered on 05/06/16 10:52; Admin Dose 325 MG; Start 05/04/16 at 21:00 Imipenem/ Cilastatin Sodium (Primaxin 500 Mg/ 100 ml (Pmx)) 100 ml @ 100 mls/ hr Q8 IVPB Last administered on 05/06/16 13:00; Admin Dose 100 MLS/HR; Start 05/04/16 at 16:00 JEB VAZQUEZ MD May 06, 2016 17:04
--- NOTE | 2016-05-06 17:18 | CONS ---
Date/Time of Note Date/Time of Note DATE: 05/06/16 TIME: 17:14 Assessment/Plan Assessment/Plan Chief Complaint/Hosp Course SUBJECTIVE: No acute changes. The patient is lying comfortably in bed, feels better. No fevers. MICROBIOLOGY: Blood cultures negative. ANTIMICROBIALS: Imipenem status post Rocephin. PHYSICAL EXAMINATION: GENERAL: This is a morbidly obese, middle-aged woman who is lying comfortably in bed. HEENT: Head atraumatic, normocephalic. Sclerae anicteric. Buccal mucosa dry. NECK: Supple. CHEST: Rise symmetrical. Breath sounds diminished to bases. HEART: S1, S2. ABDOMEN: Distended, soft. Some tenderness on palpation. EXTREMITIES: Without cyanosis. ASSESSMENT: 1. Systemic inflammatory response syndrome with persistent leukocytosis 2. Morbid obesity. 3. Status post laparoscopic cholecystectomy with anemia, possibly bleeding in the liver bed with fluid accumulation. 4. PNA per CT chest PLAN: Stable, CT abdomen/chest noted, continue present care, antibiotics, monitor H and H, transfuse as needed and follow surgical recommendations. Encourage incentive spirometry DW staff/pt Problems: Consultation Date/Type/Reason Admit Date/Time Apr 29, 2016 at 10:27 Initial Consult Date Type of Consultation: ID Exam/Review of Systems Vital Signs Vitals Vital Signs Date Time Temp Pulse Resp B/P Pulse Ox O2 Delivery O2 Flow Rate FiO2 05/06/16 11:44 Nasal Cannula 2.0 05/06/16 08:15 97.8 104 18 116/57 98 Intake and Output 05/05/16 05/05/16 05/06/16 15:00 23:00 07:00 Intake Total 1500 ml 1055 ml Balance 1500 ml 1055 ml Results Result Diagram: 05/06/1622 05/06/16 0522 Results 24 hrs Laboratory Tests Test 05/05/16 19:41 05/06/16 05:22 05/06/16 08:19 05/06/16 11:06 Bedside Glucose 161 139 141 Alanine Aminotransferase (ALT/SGPT) 32 Albumin 3.0 L Albumin/Globulin Ratio 0.83 Alkaline Phosphatase 122 H Anion Gap 15 Aspartate Amino Transf (AST/SGOT) 31 Basophils # 0.0 Basophils % 0.0 Blood Morphology Comment Blood Urea Nitrogen 4 L Calcium Level 7.5 L Carbon Dioxide Level 29 Chloride Level 97 Creatinine 0.41 L Direct Bilirubin 0.00 Eosinophils # 0.2 Eosinophils % 1.0 Globulin 3.60 H Glucose Level 153 Hematocrit 22.3 L Hemoglobin 7.4 L Indirect Bilirubin 0.6 Lymphocytes # 3.5 H Lymphocytes % 15.0 Mean Corpuscular Hemoglobin 27.0 L Mean Corpuscular Hemoglobin Concent 33.3 Mean Corpuscular Volume 81.1 L Mean Platelet Volume 6.8 L Monocytes # 0.5 Monocytes % 2.0 Neutrophils # 17.9 H Neutrophils % 77.0 Nucleated Red Blood Cells # 0.0 Nucleated Red Blood Cells % 2.0 H Platelet Count 546 H Potassium Level 4.1 Red Blood Count 2.74 L Red Cell Distribution Width 16.6 H Sodium Level 137 Total Bilirubin 0.6 Total Protein 6.6 White Blood Count 23.3 H Test 05/06/16 16:42 Bedside Glucose 148 Medications Medications Current Medications Ondansetron HCl (Zofran Inj) 4 mg Q6H PRN IV NAUSEA AND/OR VOMITING Last administered on 05/06/16 16:48; Admin Dose 4 MG; Start 04/28/16 at 11:00 Acetaminophen/ Codeine Phosphate 1 tab 1 tab Q6H PRN PO PAIN Last administered on 05/03/16 13:53; Admin Dose 1 TAB; Start 04/28/16 at 11:00 Acetaminophen (Ofirmev 1000mg/ 100ml Iv) 100 ml @ 400 mls/hr Q6H PRN IVPB PAIN Last administered on 04/28/16 18:17; Admin Dose 400 MLS/HR; Start at 11:00 Sertraline HCl (Zoloft) 100 mg DAILY PO Last administered on 05/06/16 10:52; Admin Dose 100 MG; Start 04/29/16 at 09:00 Miscellaneous Information 1 ea NOTE XX ; Start 04/28/16 at 17:30 Glucose (Glutose) 15 gm Q15M PRN PO DECREASED GLUCOSE; Start 04/28/16 at 17:30 Glucose (Glutose) 22.5 gm Q15M PRN PO DECREASED GLUCOSE; Start 04/28/16 at 17: 30 Dextrose (D50w Syringe) 25 ml Q15M PRN IV DECREASED GLUCOSE; Start 04/28/16 at 17:30 Dextrose (D50w Syringe) 50 ml Q15M PRN IV DECREASED GLUCOSE; Start 04/28/16 at 17:30 Glucagon (Glucagen) 1 mg Q15M PRN IM DECREASED GLUCOSE; Start 04/28/16 at 17:30 Glucose (Glutose) 15 gm Q15M PRN BUCCAL DECREASED GLUCOSE; Start 04/28/16 at 17 :30 Hydromorphone HCl (Dilaudid) 0.5 mg Q2H PRN IV PAIN Last administered on 09:02; Admin Dose 0.5 MG; Start 04/29/16 at 18:30 Pantoprazole (Protonix Iv) 40 mg BID@06,18 IV Last administered on 05/06/16 17 :09; Admin Dose 40 MG; Start 04/30/16 at 06:00 Hydromorphone HCl 1 mg 1 mg Q3H PRN IV PAIN Last administered on 05/06/16 16: 48; Admin Dose 1 MG; Start 04/30/16 at 11:00 Potassium Chloride/Dextrose/ Sod Cl (D5-1/2ns + KCl 20 Meq) 1,000 ml @ 80 mls/ hr [id number] IV Last administered on 05/06/16 16:53; Admin Dose 80 MLS/HR; Start 05/01/16 at 13:00 Alprazolam (Xanax) 1 mg Q12H PRN PO ANXIETY Last administered on 05/06/16 10: 59; Admin Dose 1 MG; Start 05/03/16 at 05:56 Ferrous Sulfate 325 mg 325 mg BID PO Last administered on 05/06/16 10:52; Admin Dose 325 MG; Start 05/04/16 at 21:00 Imipenem/ Cilastatin Sodium (Primaxin 500 Mg/ 100 ml (Pmx)) 100 ml @ 100 mls/ hr Q8 IVPB Last administered on 05/06/16 13:00; Admin Dose 100 MLS/HR; Start 05/04/16 at 16:00 ABNER BALL NP May 06, 2016 17:18
--- NOTE | 2016-05-06 19:22 | PN ---
DATE: 05/06/2016 INFECTIOUS DISEASE PROGRESS NOTE SUBJECTIVE: No specific complaint, except just abdominal pain requiring Dilaudid every 3 hours. Hester s not had any bowel movement, but has been passing a lot of gas. No nausea, no vomiting. This morn ing did not have a good appetite, as well as before lunch, but dinner she has tolerated and she has taken dinner. OBJECTIVE VITAL SIGNS: Stable as follows: 97.8, heart rate 104, respiration 18, blood pressure 116/57, satur ation 98% on 2 L nasal cannula. LABORATORY: WBC has decreased slightly to 23,300, with 77% segmented. Hemoglobin is low at 7.4, he matocrit 22.3. Chemistry: Potassium 4.1, BUN 4, creatinine 0.41, calcium 7.5. SGOT, SGPT normal. Bilirubin normal. HIDA SCAN: Was done today and the report says it is negative. There is no evidence of leak. Abd omen is protruding with fat, but is soft, bowel sounds are present. Minimal deep tenderness on pres sure in both upper quadrants. Legs, no calf tenderness. Patient is not doing very well with incentive spirometry. Encouraged to do as much as possible. ASSESSMENT: Patient is status post laparoscopic cholecystectomy; apparently has had bleeding intrap eritoneally. Since then, the patient ought to be watched and monitored with a hemoglobin and hemato crit which gradually has decreased and is stabilized at about 7.5 on 8. Patient is a little bit tac hypneic and no evidence of abnormal liver function tests. CT scan of the abdomen and chest has been negative, except for some fluid and accumulation around the liver. HIDA scan, which was suggested by Dr. Blair, was done today, which is negative. There is no evidence of leak or obstruction. PLAN 1. We suggest 2 units of blood transfusion, if it is okay with Dr. Lange. 2. Start on a soft, low-fat diet. 3. Give milk of magnesia 30 mL at bedtime. After patient received a blood transfusion gradually pl an for discharging the patient within a few days. Dictated By: BRADLY UGALDE MD PS/NTS Conf#: [id number] DID#: [id number]
[2016-05-06] MEDS: MAGNESIUM HYDROXIDE 30ML CUP PO SCH (20:21)
[2016-05-06 20:41] VITALS: BP 115/56; RESP 18
[2016-05-07] MEDS ORDERED: HYDROmorphONE 1 MG/ML SYG IV ONE (01:39)
[2016-05-07] MEDS: HYDROmorphONE 1 MG/ML SYG IV PRN ×7 (04:38→22:00)
[2016-05-07] MEDS: IMIPENEM-CILAST 500MG IV (PMX) 100 ML IVPB SCH ×3 (05:43→23:54)
[2016-05-07] MEDS: PANTOPRAZOLE 40 MG INJ IV SCH ×2 (05:43→18:49)
[2016-05-07 06:12] LABS: BASOPHILS % 0.1 % (0.0-2.0); EOSINOPHILS # 0.2 10^3/ul (0.0-0.5); HEMATOCRIT 28.8 % (37.0-47.0); HEMOGLOBIN 9.5 g/dl (12.0-16.0); LYMPHOCYTES # 2.7 10^3/ul (0.8-2.9); LYMPHOCYTES % 11.3 % (15.0-51.0); MEAN CORPUSCULAR HEMOGLOBIN 27.4 pg (29.0-33.0); MEAN CORPUSCULAR HGB CONC 33.1 g/dl (32.0-37.0); MEAN CORPUSCULAR VOLUME 82.8 fl (82.0-101.0); MEAN PLATELET VOLUME 6.9 fl (7.4-10.4); MONOCYTE # 1.8 10^3/ul (0.3-0.9); MONOCYTES % 7.7 % (0.0-11.0); NEUTROPHIL # 18.9 10^3/ul (1.6-7.5); NEUTROPHILS % 79.9 % (39.0-77.0); PLATELET COUNT 534 10^3/UL (140-440); RED BLOOD COUNT 3.47 10^6/ul (4.20-5.40); UNCORRECTED WBC 23.6 10^3/ul (4.8-10.8); WHITE BLOOD COUNT 23.6 10^3/ul (4.8-10.8)
[2016-05-07 06:35] LABS: CONDITION 1; LH ANALYZER COMMENTS 1
[2016-05-07 06:48] LABS: ALBUMIN 3.1 g/dl (3.3-4.9); POTASSIUM 3.9 mmol/L (3.5-5.1)
[2016-05-07 06:50] LABS: CREATININE 0.35 mg/dl (0.44-1.00)
[2016-05-07 06:51] LABS: ALBUMIN/GLOBULIN RATIO 0.79; BILIRUBIN,INDIRECT 0.6 mg/dl (0-1.1); BILIRUBIN,TOTAL 0.6 mg/dl (0.2-1.3); CALCIUM 7.7 mg/dl (8.4-10.2)
[2016-05-07 07:56] VITALS: BP 126/58; RESP 18
[2016-05-07] MEDS: INSULIN ASPART [NOVOLOG] 3 ML PEN SC SCH ×4 (08:00→20:29)
[2016-05-07] MEDS: SERTRALINE 100 MG TAB PO SCH (08:35)
[2016-05-07] MEDS: D5W-0.45 NACL + KCL 20 MEQ 1,000 ML IV SCH ×3 (08:35→18:56)
[2016-05-07] MEDS: FERROUS SULFATE (EC) 325 MG TAB PO SCH ×2 (08:35→20:35)
[2016-05-07] MEDS: ALPRAZOLAM 0.5 MG TAB PO PRN ×2 (08:35→20:35)
--- NOTE | 2016-05-07 14:01 | CONS ---
Date/Time of Note Date/Time of Note DATE: 05/07/16 TIME: 13:59 Assessment/Plan Assessment/Plan Additional Assessment/Plan Additional Assessment/Plan Impression: 1. Symptomatic cholelithiasis, status post laparoscopic cholecystectomy. 2. possible bile leak 3. RUQ abdominal pain 4. iron deficiency anemia 5 obesity 6 leucocytosis Recommendation: 1. f/u MRCP to r/o bile leak 2. if bile leak on MRCP, will need ERCP with stent 3. continue iron replacement 4. I made pt NPO in case 5.hida scan for bile leak,negative This pt. was seen yesterday Consultation Date/Type/Reason Admit Date/Time Apr 29, 2016 at 10:27 Type of Consultation: ID [id number] HR Interval Summary Free Text/Dictation abdominal pain Exam/Review of Systems Vital Signs Vitals Vital Signs Date Time Temp Pulse Resp B/P Pulse Ox O2 Delivery O2 Flow Rate FiO2 05/07/16 13:23 Nasal Cannula 2.0 05/07/16 07:56 98.5 94 18 126/58 97 Intake and Output 05/06/16 05/06/16 05/07/16 15:00 23:00 07:00 Intake Total 100 ml 1920 ml 1620 ml Output Total 900 ml 750 ml Balance 100 ml 1020 ml 870 ml Exam Constitutional: alert, obese, oriented ENMT: nl external ears & nose, nl lips & teeth, nl nasal mucosa & septum Respiratory: clear to auscultation, normal air movement Cardiovascular: nl pulses, regular rate and rhythm Gastrointestinal: tender Extremities: normal pulses Neurological: WHEEL ALIGNMENT TECHNICIAN II-XII intact, nl mental status, nl speech, nl strength Results Result Diagram: 05/07/16 0535 05/07/16 0535 Results 24 hrs Laboratory Tests Test 05/06/16 16:42 05/06/16 20:23 05/07/16 05:35 05/07/16 07:38 Bedside Glucose 148 135 135 Alanine Aminotransferase (ALT/SGPT) 32 Albumin 3.1 L Albumin/Globulin Ratio 0.79 Alkaline Phosphatase 140 H Anion Gap 13 Aspartate Amino Transf (AST/SGOT) 31 Basophils # 0.0 Basophils % 0.1 Blood Morphology Comment Blood Urea Nitrogen 4 L Calcium Level 7.7 L Carbon Dioxide Level 30 Chloride Level 97 Creatinine 0.35 L Direct Bilirubin 0.00 Eosinophils # 0.2 Eosinophils % 1.0 Globulin 3.90 H Glucose Level 145 Hematocrit 28.8 #L Hemoglobin 9.5 #L Indirect Bilirubin 0.6 Lymphocytes # 2.7 Lymphocytes % 11.3 L Mean Corpuscular Hemoglobin 27.4 L Mean Corpuscular Hemoglobin Concent 33.1 Mean Corpuscular Volume 82.8 Mean Platelet Volume 6.9 L Monocytes # 1.8 H Monocytes % 7.7 Neutrophils # 18.9 H Neutrophils % 79.9 H Nucleated Red Blood Cells # 0.0 Nucleated Red Blood Cells % 0.0 Platelet Count 534 H Potassium Level 3.9 Red Blood Count 3.47 #L Red Cell Distribution Width 16.0 H Sodium Level 136 Total Bilirubin 0.6 Total Protein 7.0 White Blood Count 23.6 H Test 05/07/16 11:43 Bedside Glucose 155 Medications Medications Current Medications Ondansetron HCl (Zofran Inj) 4 mg Q6H PRN IV NAUSEA AND/OR VOMITING Last administered on 05/06/16 16:48; Admin Dose 4 MG; Start 04/28/16 at 11:00 Acetaminophen/ Codeine Phosphate 1 tab 1 tab Q6H PRN PO PAIN Last administered on 05/03/16 13:53; Admin Dose 1 TAB; Start 04/28/16 at 11:00 Acetaminophen (Ofirmev 1000mg/ 100ml Iv) 100 ml @ 400 mls/hr Q6H PRN IVPB PAIN Last administered on 04/28/16 18:17; Admin Dose 400 MLS/HR; Start at 11:00 Sertraline HCl (Zoloft) 100 mg DAILY PO Last administered on 05/07/16 08:35; Admin Dose 100 MG; Start 04/29/16 at 09:00 Miscellaneous Information 1 ea NOTE XX ; Start 04/28/16 at 17:30 Glucose (Glutose) 15 gm Q15M PRN PO DECREASED GLUCOSE; Start 04/28/16 at 17:30 Glucose (Glutose) 22.5 gm Q15M PRN PO DECREASED GLUCOSE; Start 04/28/16 at 17: 30 Dextrose (D50w Syringe) 25 ml Q15M PRN IV DECREASED GLUCOSE; Start 04/28/16 at 17:30 Dextrose (D50w Syringe) 50 ml Q15M PRN IV DECREASED GLUCOSE; Start 04/28/16 at 17:30 Glucagon (Glucagen) 1 mg Q15M PRN IM DECREASED GLUCOSE; Start 04/28/16 at 17:30 Glucose (Glutose) 15 gm Q15M PRN BUCCAL DECREASED GLUCOSE; Start 04/28/16 at 17 :30 Pantoprazole 40 mg 40 mg BID@06,18 IV Last administered on 05/07/16 05:43; Admin Dose 40 MG; Start 04/30/16 at 06:00 Potassium Chloride/Dextrose/ Sod Cl (D5-1/2ns + KCl 20 Meq) 1,000 ml @ 80 mls/ hr [id number] IV Last administered on 05/07/16 08:35; Admin Dose 80 MLS/HR; Start 05/01/16 at 13:00 Alprazolam (Xanax) 1 mg Q12H PRN PO ANXIETY Last administered on 05/07/16 08:35 ; Admin Dose 1 MG; Start 05/03/16 at 05:56 Ferrous Sulfate 325 mg 325 mg BID PO Last administered on 05/07/16 08:35; Admin Dose 325 MG; Start 05/04/16 at 21:00 Imipenem/ Cilastatin Sodium (Primaxin 500 Mg/ 100 ml (Pmx)) 100 ml @ 100 mls/ hr Q8 IVPB Last administered on 05/07/16 13:20; Admin Dose 100 MLS/HR; Start at 16:00 Magnesium Hydroxide (Milk Of Mag) 30 ml QHS PO Last administered on 05/06/16 20:21; Admin Dose 30 ML; Start 05/06/16 at 21:00 Hydromorphone HCl (Dilaudid) 0.7 mg Q3H PRN IV PAIN Last administered on 13:06; Admin Dose 0.7 MG; Start 05/06/16 at 18:00 JESUS AGUILAR MD May 07, 2016 14:01
--- NOTE | 2016-05-07 15:58 | CONS ---
Date/Time of Note Date/Time of Note DATE: 05/07/16 TIME: 15:56 Assessment/Plan Assessment/Plan Additional Assessment/Plan Impression: 1. Symptomatic cholelithiasis, status post laparoscopic cholecystectomy. 2. possible bile leak ,negative 3. RUQ abdominal pain 4. iron deficiency anemia 5 obesity 6 leucocytosis,persistent 7.fluid inthe peritoneum is blood Recommendation: 1. f/u MRCP to r/o bile leak 2. if bile leak on MRCP, will need ERCP with stent 3. continue iron replacement 4. I made pt NPO in case 5.[place] scan for bile leak,negative 6.stool for C.Difficile toxins Consultation Date/Type/Reason Admit Date/Time Apr 29, 2016 at 10:27 Type of Consultation: ID [id number] HR Interval Summary Constitutional: improved Exam/Review of Systems Vital Signs Vitals Vital Signs Date Time Temp Pulse Resp B/P Pulse Ox O2 Delivery O2 Flow Rate FiO2 05/07/16 13:23 Nasal Cannula 2.0 05/07/16 07:56 98.5 94 18 126/58 97 Intake and Output 05/06/16 05/06/16 05/07/16 15:00 23:00 07:00 Intake Total 100 ml 1920 ml 1620 ml Output Total 900 ml 750 ml Balance 100 ml 1020 ml 870 ml Exam Constitutional: alert, oriented, well developed Psych: nl mood/affect, no complaints Head: atraumatic, normocephalic Eyes: EOMI, PERRL, nl conjunctiva, nl lids, nl sclera ENMT: nl external ears & nose, nl lips & teeth, nl nasal mucosa & septum Neck: non-tender, supple Respiratory: clear to auscultation, normal air movement Cardiovascular: nl pulses, regular rate and rhythm Gastrointestinal: nl liver, spleen, non-tender, soft Musculoskeletal: nl extremities to inspection, nl gait and stance Extremities: normal pulses Neurological: WARP TENSION TESTER II-XII intact, nl mental status, nl speech, nl strength Skin: nl turgor, No rash or lesions Lymph: nl lymph nodes Results Result Diagram: 05/07/16 0535 05/07/16 0535 Results 24 hrs Laboratory Tests Test 05/06/16 16:42 05/06/16 20:23 05/07/16 05:35 05/07/16 07:38 Bedside Glucose 148 135 135 Alanine Aminotransferase (ALT/SGPT) 32 Albumin 3.1 L Albumin/Globulin Ratio 0.79 Alkaline Phosphatase 140 H Anion Gap 13 Aspartate Amino Transf (AST/SGOT) 31 Basophils # 0.0 Basophils % 0.1 Blood Morphology Comment Blood Urea Nitrogen 4 L Calcium Level 7.7 L Carbon Dioxide Level 30 Chloride Level 97 Creatinine 0.35 L Direct Bilirubin 0.00 Eosinophils # 0.2 Eosinophils % 1.0 Globulin 3.90 H Glucose Level 145 Hematocrit 28.8 #L Hemoglobin 9.5 #L Indirect Bilirubin 0.6 Lymphocytes # 2.7 Lymphocytes % 11.3 L Mean Corpuscular Hemoglobin 27.4 L Mean Corpuscular Hemoglobin Concent 33.1 Mean Corpuscular Volume 82.8 Mean Platelet Volume 6.9 L Monocytes # 1.8 H Monocytes % 7.7 Neutrophils # 18.9 H Neutrophils % 79.9 H Nucleated Red Blood Cells # 0.0 Nucleated Red Blood Cells % 0.0 Platelet Count 534 H Potassium Level 3.9 Red Blood Count 3.47 #L Red Cell Distribution Width 16.0 H Sodium Level 136 Total Bilirubin 0.6 Total Protein 7.0 White Blood Count 23.6 H Test 05/07/16 11:43 Bedside Glucose 155 Medications Medications Current Medications Ondansetron HCl (Zofran Inj) 4 mg Q6H PRN IV NAUSEA AND/OR VOMITING Last administered on 05/06/16 16:48; Admin Dose 4 MG; Start 04/28/16 at 11:00 Acetaminophen/ Codeine Phosphate 1 tab 1 tab Q6H PRN PO PAIN Last administered on 05/03/16 13:53; Admin Dose 1 TAB; Start 04/28/16 at 11:00 Acetaminophen (Ofirmev 1000mg/ 100ml Iv) 100 ml @ 400 mls/hr Q6H PRN IVPB PAIN Last administered on 04/28/16 18:17; Admin Dose 400 MLS/HR; Start at 11:00 Sertraline HCl (Zoloft) 100 mg DAILY PO Last administered on 05/07/16 08:35; Admin Dose 100 MG; Start 04/29/16 at 09:00 Miscellaneous Information 1 ea NOTE XX ; Start 04/28/16 at 17:30 Glucose (Glutose) 15 gm Q15M PRN PO DECREASED GLUCOSE; Start 04/28/16 at 17:30 Glucose (Glutose) 22.5 gm Q15M PRN PO DECREASED GLUCOSE; Start 04/28/16 at 17: 30 Dextrose (D50w Syringe) 25 ml Q15M PRN IV DECREASED GLUCOSE; Start 04/28/16 at 17:30 Dextrose (D50w Syringe) 50 ml Q15M PRN IV DECREASED GLUCOSE; Start 04/28/16 at 17:30 Glucagon (Glucagen) 1 mg Q15M PRN IM DECREASED GLUCOSE; Start 04/28/16 at 17:30 Glucose (Glutose) 15 gm Q15M PRN BUCCAL DECREASED GLUCOSE; Start 04/28/16 at 17 :30 Pantoprazole 40 mg 40 mg BID@06,18 IV Last administered on 05/07/16 05:43; Admin Dose 40 MG; Start 04/30/16 at 06:00 Potassium Chloride/Dextrose/ Sod Cl (D5-1/2ns + KCl 20 Meq) 1,000 ml @ 80 mls/ hr [id number] IV Last administered on 05/07/16 08:35; Admin Dose 80 MLS/HR; Start 05/01/16 at 13:00 Alprazolam (Xanax) 1 mg Q12H PRN PO ANXIETY Last administered on 05/07/16 08:35 ; Admin Dose 1 MG; Start 05/03/16 at 05:56 Ferrous Sulfate 325 mg 325 mg BID PO Last administered on 05/07/16 08:35; Admin Dose 325 MG; Start 05/04/16 at 21:00 Imipenem/ Cilastatin Sodium (Primaxin 500 Mg/ 100 ml (Pmx)) 100 ml @ 100 mls/ hr Q8 IVPB Last administered on 05/07/16 13:20; Admin Dose 100 MLS/HR; Start at 16:00 Magnesium Hydroxide (Milk Of Mag) 30 ml QHS PO Last administered on 05/06/16 20:21; Admin Dose 30 ML; Start 05/06/16 at 21:00 Hydromorphone HCl (Dilaudid) 0.7 mg Q3H PRN IV PAIN Last administered on 13:06; Admin Dose 0.7 MG; Start 05/06/16 at 18:00 JESUS AGUILAR MD May 07, 2016 15:58
[2016-05-07] MEDS: metFORMIN 500 MG TAB PO SCH ×2 (18:05→18:50)
--- NOTE | 2016-05-07 19:58 | PN ---
Date/Time of Note Date/Time of Note DATE: 05/07/16 TIME: 19:57 Assessment/Plan VTE Prophylaxis VTE Prophylaxis Intervention: other Lines/Catheters IV C[facility]ter Type (from [facility]): Peripheral IV Urinary Cath still in place: No Assessment/Plan Chief Complaint/Hosp Course 1. Symptomatic cholelithiasis, status post laparoscopic cholecystectomy. Will continue IV fluids. 2. Noninsulin-dependent diabetes mellitus. 3. Obesity. 4. Anxiety and depression. 5 obesity 6 leucocytosis 7 post op anemia 8 HIDA NEG plan antibiotic ck labs per surgery dr richard Casarez ck wbc Problems: Subjective 24 Hr Interval Summary Cardiovascular: no complaints Gastrointestinal: no complaints Genitourinary: no complaints Exam/Review of Systems Vital Signs Vitals Vital Signs Date Time Temp Pulse Resp B/P Pulse Ox O2 Delivery O2 Flow Rate FiO2 05/07/16 13:23 Nasal Cannula 2.0 05/07/16 07:56 98.5 94 18 126/58 97 Intake and Output 05/06/16 05/06/16 05/07/16 15:00 23:00 07:00 Intake Total 100 ml 1920 ml 1620 ml Output Total 900 ml 750 ml Balance 100 ml 1020 ml 870 ml Exam Neck: supple Respiratory: clear to auscultation Cardiovascular: regular rate and rhythm Gastrointestinal: bowel sounds (+), soft Musculoskeletal: nl extremities to inspection Extremities: normal pulses Results Result Diagram: 05/07/16 0535 05/07/16 0535 Results 24 hrs Laboratory Tests Test 05/06/16 20:23 05/07/16 05:35 05/07/16 07:38 05/07/16 11:43 Bedside Glucose 135 135 155 Alanine Aminotransferase (ALT/SGPT) 32 Albumin 3.1 L Albumin/Globulin Ratio 0.79 Alkaline Phosphatase 140 H Anion Gap 13 Aspartate Amino Transf (AST/SGOT) 31 Basophils # 0.0 Basophils % 0.1 Blood Morphology Comment Blood Urea Nitrogen 4 L Calcium Level 7.7 L Carbon Dioxide Level 30 Chloride Level 97 Creatinine 0.35 L Direct Bilirubin 0.00 Eosinophils # 0.2 Eosinophils % 1.0 Globulin 3.90 H Glucose Level 145 Hematocrit 28.8 #L Hemoglobin 9.5 #L Indirect Bilirubin 0.6 Lymphocytes # 2.7 Lymphocytes % 11.3 L Mean Corpuscular Hemoglobin 27.4 L Mean Corpuscular Hemoglobin Concent 33.1 Mean Corpuscular Volume 82.8 Mean Platelet Volume 6.9 L Monocytes # 1.8 H Monocytes % 7.7 Neutrophils # 18.9 H Neutrophils % 79.9 H Nucleated Red Blood Cells # 0.0 Nucleated Red Blood Cells % 0.0 Platelet Count 534 H Potassium Level 3.9 Red Blood Count 3.47 #L Red Cell Distribution Width 16.0 H Sodium Level 136 Total Bilirubin 0.6 Total Protein 7.0 White Blood Count 23.6 H Test 05/07/16 16:19 Bedside Glucose 122 Medications Medications Current Medications Ondansetron HCl (Zofran Inj) 4 mg Q6H PRN IV NAUSEA AND/OR VOMITING Last administered on 05/06/16 16:48; Admin Dose 4 MG; Start 04/28/16 at 11:00 Acetaminophen/ Codeine Phosphate 1 tab 1 tab Q6H PRN PO PAIN Last administered on 05/03/16 13:53; Admin Dose 1 TAB; Start 04/28/16 at 11:00 Acetaminophen (Ofirmev 1000mg/ 100ml Iv) 100 ml @ 400 mls/hr Q6H PRN IVPB PAIN Last administered on 04/28/16 18:17; Admin Dose 400 MLS/HR; Start at 11:00 Sertraline HCl (Zoloft) 100 mg DAILY PO Last administered on 05/07/16 08:35; Admin Dose 100 MG; Start 04/29/16 at 09:00 Miscellaneous Information 1 ea NOTE XX ; Start 04/28/16 at 17:30 Glucose (Glutose) 15 gm Q15M PRN PO DECREASED GLUCOSE; Start 04/28/16 at 17:30 Glucose (Glutose) 22.5 gm Q15M PRN PO DECREASED GLUCOSE; Start 04/28/16 at 17: 30 Dextrose (D50w Syringe) 25 ml Q15M PRN IV DECREASED GLUCOSE; Start 04/28/16 at 17:30 Dextrose (D50w Syringe) 50 ml Q15M PRN IV DECREASED GLUCOSE; Start 04/28/16 at 17:30 Glucagon (Glucagen) 1 mg Q15M PRN IM DECREASED GLUCOSE; Start 04/28/16 at 17:30 Glucose (Glutose) 15 gm Q15M PRN BUCCAL DECREASED GLUCOSE; Start 04/28/16 at 17 :30 Pantoprazole 40 mg 40 mg BID@06,18 IV Last administered on 05/07/16 18:49; Admin Dose 40 MG; Start 04/30/16 at 06:00 Potassium Chloride/Dextrose/ Sod Cl (D5-1/2ns + KCl 20 Meq) 1,000 ml @ 80 mls/ hr [id number] IV Last administered on 05/07/16 18:56; Admin Dose 80 MLS/HR; Start 05/01/16 at 13:00 Alprazolam (Xanax) 1 mg Q12H PRN PO ANXIETY Last administered on 05/07/16 08:35 ; Admin Dose 1 MG; Start 05/03/16 at 05:56 Ferrous Sulfate 325 mg 325 mg BID PO Last administered on 05/07/16 08:35; Admin Dose 325 MG; Start 05/04/16 at 21:00 Imipenem/ Cilastatin Sodium (Primaxin 500 Mg/ 100 ml (Pmx)) 100 ml @ 100 mls/ hr Q8 IVPB Last administered on 05/07/16 13:20; Admin Dose 100 MLS/HR; Start at 16:00 Magnesium Hydroxide (Milk Of Mag) 30 ml QHS PO Last administered on 05/06/16 20:21; Admin Dose 30 ML; Start 05/06/16 at 21:00 Hydromorphone HCl (Dilaudid) 0.7 mg Q3H PRN IV PAIN Last administered on 18:57; Admin Dose 0.7 MG; Start 05/06/16 at 18:00 JEB VAZQUEZ MD May 07, 2016 19:58
[2016-05-07 20:00] VITALS: BP 140/66; RESP 19
[2016-05-07] MEDS: MAGNESIUM HYDROXIDE 30ML CUP PO SCH (20:35)
[2016-05-07] MEDS ORDERED: VANCOMYCIN 1 GM (PMX) 250 ML IVPB SCH (21:00)
--- NOTE | 2016-05-07 21:49 | PN ---
DATE: 05/07/2016 SUBJECTIVE: No acute events. The patient is alert, feels better, looks comfortable. She is afebri le. WBC 23.6 with H and H 9.5 and 28.8, platelets 534. Neutrophils 79.9. No bands. BUN 4, creatinine 0.35. ANTIMICROBIALS: The patient is on imipenem. PHYSICAL EXAMINATION: GENERAL: This is a morbidly obese, middle-aged woman who is alert, in no distress. HEENT: Head atraumatic, normocephalic. Sclerae anicteric. Buccal mucosa pink. NECK: Obese. CHEST: Rise symmetrical. Breath sounds diminished to bases. HEART: S1, S2. ABDOMEN: Soft. Bowel tones present. EXTREMITIES: Without cyanosis. ASSESSMENT: 1. Systemic inflammatory response syndrome with persistent leukocytosis and now with a shift to the left. 2. History of laparoscopic cholecystectomy secondary to symptomatic cholelithiasis. 3. Pneumonia. 4. Obesity. 5. Anemia. 6. Fluid in the peritoneum per CT of the abdomen, likely blood. PLAN: The patient remains stable. She is being seen by Surgery and Gastroenterology. She is going to have MRCP to rule out bile leak. We will continue her on imipenem, repeat chest x-ray in a.m., give her a dose of vancomycin, swab her nares for MRSA and follow recommendations of consultants. Dictated By: ABNER BALL DANCER OR CHOREOGRAPHER for DALTON LOPEZ/ARGELIA Conf#: [id number] DID#: [id number]
[2016-05-08] MEDS: HYDROmorphONE 1 MG/ML SYG IV PRN ×5 (00:59→16:03)
--- NOTE | 2016-05-08 02:39 | PN ---
DATE: 05/07/2016 SUBJECTIVE: The patient states that she has pain in the right flank area on the right side; actuall y the pain starts from the umbilical area and goes around the waist to that area. No nausea, no vom iting. She has had breakfast. She had a bowel movement today. She has been momentarily for a few minutes out of bed, but she said she got dizzy a little bit, so she went back to bed. No fever. OBJECTIVE: GENERAL: Awake, alert, slightly tachypneic. She is using incentive spirometry machine but maximum she brings up to 500 mL. I do not know why she cannot do that. VITAL SIGNS: As follows: Temperature 98.5, pulse rate 94, respirations 18, blood pressure 126/58, saturation 97% room air on 2 liters nasal cannula. ABDOMEN: Protruded with fat. Bowel sounds are present. Abdomen is soft. There is some tenderness in the left upper quadrant on deep pressure. LABORATORY DATA: Potassium 3.9, BUN 4, creatinine 0.35. Alkaline phosphatase 140, slightly elevate d; AST, ALT normal; bilirubin total is 0.6. ASSESSMENT AND PLAN: 1. Status post laparoscopic cholecystectomy. 2. Status post intra-abdominal bleeding, question of cause. 3. CT angio of the chest is negative for pulmonary emboli. CT scan of the abdomen is negative for any pathology in the gallbladder area or the liver or the spleen or the pancreas, but there is fluid in the abdomen. It is reported as ascites, mostly around the liver. HIDA scan was recommended by Dr. Blair, GI colleague, was negative for any leakage and common bile duct was open. The patient r eceived 2 units of blood last night and hemoglobin has increased from 7.4 and hematocrit 22.3, today it is 9.5 and 28.8. Neutrophil is 79.9%. As was mentioned before retic count was 4.8, so very fabiola vated. Patient is not taking this serious and is not expanding her lungs and as previously reported there w as some subsegmental atelectasis there. PLAN: 1. Continue diet. 2. Encourage incentive spirometry and deep breathing and coughing. 3. Continue orders per Dr. Blair and other internal medicine colleagues. 4. We will follow and observe for at least 1 more day. Dictated By: BRADLY UGALDE MD PS/NTS Conf#: [id number] DID#: [id number]
[2016-05-08] MEDS: PANTOPRAZOLE 40 MG INJ IV SCH ×2 (05:56→18:43)
[2016-05-08] MEDS: IMIPENEM-CILAST 500MG IV (PMX) 100 ML IVPB SCH ×3 (05:56→21:39)
[2016-05-08 06:07] LABS: BASOPHILS % 0.2 % (0.0-2.0); EOSINOPHILS # 0.1 10^3/ul (0.0-0.5); EOSINOPHILS % 0.7 % (0.0-7.0); HEMOGLOBIN 9.3 g/dl (12.0-16.0); LYMPHOCYTES # 2.5 10^3/ul (0.8-2.9); LYMPHOCYTES % 12.2 % (15.0-51.0); MEAN CORPUSCULAR HEMOGLOBIN 27.6 pg (29.0-33.0); MEAN CORPUSCULAR HGB CONC 33.1 g/dl (32.0-37.0); MEAN CORPUSCULAR VOLUME 83.3 fl (82.0-101.0); MEAN PLATELET VOLUME 6.7 fl (7.4-10.4); MONOCYTE # 1.6 10^3/ul (0.3-0.9); MONOCYTES % 7.8 % (0.0-11.0); NEUTROPHILS % 79.1 % (39.0-77.0); PLATELET COUNT 524 10^3/UL (140-440); RED BLOOD COUNT 3.36 10^6/ul (4.20-5.40); RED CELL DISTRIBUTION WIDTH 16.4 % (11.5-14.5); UNCORRECTED WBC 20.3 10^3/ul (4.8-10.8); WHITE BLOOD COUNT 20.3 10^3/ul (4.8-10.8)
[2016-05-08 07:03] LABS: CONDITION 1; LH ANALYZER COMMENTS 1
[2016-05-08] MEDS: D5W-0.45 NACL + KCL 20 MEQ 1,000 ML IV SCH ×2 (07:19→12:48)
[2016-05-08 07:30] VITALS: BP 126/59; RESP 18
[2016-05-08] MEDS: INSULIN ASPART [NOVOLOG] 3 ML PEN SC SCH ×4 (08:00→21:00)
[2016-05-08] MEDS: SERTRALINE 100 MG TAB PO SCH (09:44)
[2016-05-08] MEDS: metFORMIN 500 MG TAB PO SCH ×2 (09:44→18:43)
[2016-05-08] MEDS: FERROUS SULFATE (EC) 325 MG TAB PO SCH ×2 (09:44→21:39)
--- NOTE | 2016-05-08 10:12 | RADRPT ---
PROCEDURE: XR Chest. CLINICAL INDICATION: Shortness of breath. TECHNIQUE: Single frontal view. COMPARISON: 05/03/2016. FINDINGS: There is elevation of the right hemidiaphragm and right basilar atelectasis. The lungs are otherwis e clear. The heart size is normal. There is no pleural effusion. There is no pneumothorax. IMPRESSION: 1. Elevation of the right hemidiaphragm and right basilar atelectasis. 2. Otherwise normal chest x-ray. 3. No change from 05/03/2016. RPTAT: QQ .Mao Saeed MD, MD Date Time Electronically viewed and signed by .Mao Saeed MD, MD on 05/08/2016 10:12 .R/
[2016-05-08] MEDS ORDERED: VANCOMYCIN IV PER PHARMACY XX SCH (12:30)
[2016-05-08] MEDS: MINERAL OIL 30ML CUP PO SCH ×2 (14:35→21:00)
--- NOTE | 2016-05-08 14:40 | PN ---
DATE: 05/08/2016 SUBJECTIVE: The patient states that she has episodes of wheezing and she still has to use nasal can nula oxygen to not be short of breath. No nausea, no vomiting, passing a lot of gas. No bowel move ment today, but she had 1 the day before. She still feels a lot of pain in her belly, requiring 0.8 mg of Dilaudid every 3 hours. Chest x-ray was done today. OBJECTIVE0 VITAL SIGNS: Temperature 98.5, heart rate 101, respirations of 18 is recorded, blood pressure 126/5 9, saturations of 96% on 2 liters of nasal cannula oxygen. LABORATORY: WBC dropped to 20,300, with 79% segmented. Today hemoglobin 9.3, hematocrit 28. Chemi stry was not done to date. Blood sugar is 128. Chest x-ray was read by Dr. Mao Saeed and today it states: 1) Elevation of the right hemidiaphragm and right basilar atelectasis. 2) Otherwise normal chest x-ray. 3) No change from 05/03/2016. ABDOMEN: Soft, bowel sounds present. EXTREMITIES: Legs, no calf tenderness, no Homans sign. ASSESSMENT AND PLAN: 1. Status post laparoscopic cholecystectomy. 2. Evidence of intraoperative bleeding post operation. 3. Negative CT scan of the chest for pulmonary emboli, and negative HIDA scan for leakage of the bi le. The patient is using a lot of pain medication for abdominal pain ( I am not sure if really she has p ain, or if she is abusing the drug). The patient states that she has wheezing and saturation is 96% on room air and the patient looks slightly cyanotic. PLAN: 1. I recommend that the patient be seen by a control valve mechanic. 2. Will try to get the patient out of bed, first sitting in the chair, and make sure that the patie nt does not develop orthostatic hypotension. 3. I will discuss with Dr. Lange and Dr. Blair about the patient today. 4. I will discuss with infectious disease in regards to continuation of antibiotics. Dictated By: BRADLY UGALDE MD PS/NTS Conf#: [id number] DID#: [id number]
[2016-05-08] MEDS ORDERED: VANCOMYCIN 2 GM in SOD CHLORIDE 0.9% 500 ML IVPB ONE (15:00)
--- NOTE | 2016-05-08 15:08 | CONS ---
Date/Time of Note Date/Time of Note DATE: 05/08/16 TIME: 15:06 Assessment/Plan Assessment/Plan Chief Complaint/Hosp Course SUBJECTIVE: No acute events. The patient is alert, feels better, looks comfortable. She is afebrile. ANTIMICROBIALS: The patient is on imipenem and Vanco==> added yesterday. PHYSICAL EXAMINATION: GENERAL: This is a morbidly obese, middle-aged woman who is alert, in no distress. HEENT: Head atraumatic, normocephalic. Sclerae anicteric. Buccal mucosa pink. NECK: Obese. CHEST: Rise symmetrical. Breath sounds diminished to bases. HEART: S1, S2. ABDOMEN: Soft. Bowel tones present. EXTREMITIES: Without cyanosis. ASSESSMENT: 1. Systemic inflammatory response syndrome with persistent leukocytosis. 2. History of laparoscopic cholecystectomy secondary to symptomatic cholelithiasis. 3. Pneumonia. 4. Obesity. 5. Anemia. 6. Fluid in the peritoneum per CT of the abdomen, likely blood. PLAN: The patient remains stable. WBC slowly tracing down, continue abx, surgical rec-s noted, agree with pulmonary eval DW staff/pt Problems: Consultation Date/Type/Reason Admit Date/Time Apr 29, 2016 at 10:27 Type of Consultation: ID Exam/Review of Systems Vital Signs Vitals Vital Signs Date Time Temp Pulse Resp B/P Pulse Ox O2 Delivery O2 Flow Rate FiO2 05/08/16 07:30 98.5 101 18 126/59 96 05/07/16 13:23 Nasal Cannula 2.0 Intake and Output 05/07/16 05/07/16 05/08/16 14:59 22:59 06:59 Intake Total 160 ml 2380 ml 1540 ml Balance 160 ml 2380 ml 1540 ml Results Result Diagram: 05/08/16 0535 05/07/16 0535 Results 24 hrs Laboratory Tests Test 05/07/16 16:19 05/07/16 20:22 05/08/16 05:35 05/08/16 07:56 Bedside Glucose 122 173 128 Basophils # 0.0 Basophils % 0.2 Blood Morphology Comment Eosinophils # 0.1 Eosinophils % 0.7 Hematocrit 28.0 L Hemoglobin 9.3 L Lymphocytes # 2.5 Lymphocytes % 12.2 L Mean Corpuscular Hemoglobin 27.6 L Mean Corpuscular Hemoglobin Concent 33.1 Mean Corpuscular Volume 83.3 Mean Platelet Volume 6.7 L Monocytes # 1.6 H Monocytes % 7.8 Neutrophils # 16.0 H Neutrophils % 79.1 H Nucleated Red Blood Cells # 0.0 Nucleated Red Blood Cells % 0.0 Platelet Count 524 H Red Blood Count 3.36 L Red Cell Distribution Width 16.4 H White Blood Count 20.3 H Test 05/08/16 12:39 Bedside Glucose 147 Medications Medications Current Medications Ondansetron HCl (Zofran Inj) 4 mg Q6H PRN IV NAUSEA AND/OR VOMITING Last administered on 05/06/16 16:48; Admin Dose 4 MG; Start 04/28/16 at 11:00 Acetaminophen/ Codeine Phosphate 1 tab 1 tab Q6H PRN PO PAIN Last administered on 05/03/16 13:53; Admin Dose 1 TAB; Start 04/28/16 at 11:00 Acetaminophen (Ofirmev 1000mg/ 100ml Iv) 100 ml @ 400 mls/hr Q6H PRN IVPB PAIN Last administered on 04/28/16 18:17; Admin Dose 400 MLS/HR; Start at 11:00 Sertraline HCl (Zoloft) 100 mg DAILY PO Last administered on 05/08/16 09:44; Admin Dose 100 MG; Start 04/29/16 at 09:00 Miscellaneous Information 1 ea NOTE XX ; Start 04/28/16 at 17:30 Glucose (Glutose) 15 gm Q15M PRN PO DECREASED GLUCOSE; Start 04/28/16 at 17:30 Glucose (Glutose) 22.5 gm Q15M PRN PO DECREASED GLUCOSE; Start 04/28/16 at 17: 30 Dextrose (D50w Syringe) 25 ml Q15M PRN IV DECREASED GLUCOSE; Start 04/28/16 at 17:30 Dextrose (D50w Syringe) 50 ml Q15M PRN IV DECREASED GLUCOSE; Start 04/28/16 at 17:30 Glucagon (Glucagen) 1 mg Q15M PRN IM DECREASED GLUCOSE; Start 04/28/16 at 17:30 Glucose (Glutose) 15 gm Q15M PRN BUCCAL DECREASED GLUCOSE; Start 04/28/16 at 17 :30 Pantoprazole 40 mg 40 mg BID@06,18 IV Last administered on 05/08/16 05:56; Admin Dose 40 MG; Start 04/30/16 at 06:00 Potassium Chloride/Dextrose/ Sod Cl (D5-1/2ns + KCl 20 Meq) 1,000 ml @ 80 mls/ hr [id number] IV Last administered on 05/08/16 12:48; Admin Dose 80 MLS/HR; Start 05/01/16 at 13:00 Alprazolam (Xanax) 1 mg Q12H PRN PO ANXIETY Last administered on 05/07/16 20:35 ; Admin Dose 1 MG; Start 05/03/16 at 05:56 Ferrous Sulfate 325 mg 325 mg BID PO Last administered on 05/08/16 09:44; Admin Dose 325 MG; Start 05/04/16 at 21:00 Imipenem/ Cilastatin Sodium (Primaxin 500 Mg/ 100 ml (Pmx)) 100 ml @ 100 mls/ hr Q8 IVPB Last administered on 05/08/16 14:35; Admin Dose 100 MLS/HR; Start at 16:00 Magnesium Hydroxide (Milk Of Mag) 30 ml QHS PO Last administered on 05/07/16 20 :35; Admin Dose 30 ML; Start 05/06/16 at 21:00 Hydromorphone HCl (Dilaudid) 0.8 mg Q6H PRN IV PAIN; Start 05/08/16 at 12:30 Mineral Oil 30 ml 30 ml TID PO Last administered on 05/08/16 14:35; Admin Dose 30 ML; Start 05/08/16 at 13:30; Stop 05/11/16 at 09:01 Vancomycin HCl/ Sodium Chloride (Vancocin/NS) 500 ml @ 125 mls/hr ONCE ONCE IVPB ; Start 05/08/16 at 15:00; Stop 05/08/16 at 18:59 ABNER BALL NP May 08, 2016 15:08
[2016-05-08] MEDS: ALPRAZOLAM 0.5 MG TAB PO PRN (18:48)
--- NOTE | 2016-05-08 18:49 | PN ---
Date/Time of Note Date/Time of Note DATE: 05/08/16 TIME: 18:47 Assessment/Plan VTE Prophylaxis VTE Prophylaxis Intervention: other Lines/Catheters IV C[facility]ter Type (from [facility] Peripheral IV Urinary Cath still in place: No Assessment/Plan Chief Complaint/Hosp Course 1. Symptomatic cholelithiasis, status post laparoscopic cholecystectomy. Will continue IV fluids. 2. Noninsulin-dependent diabetes mellitus. 3. Obesity. 4. Anxiety and depression. 5 obesity 6 leucocytosis 7 post op anemia 8 HIDA NEG 9 lung atelectasis plan antibiotic ck labs per surgery dr richard Casarez ck wbc Problems: Subjective 24 Hr Interval Summary Respiratory: no complaints Cardiovascular: no complaints Gastrointestinal: pain (+) Musculoskeletal: no complaints Exam/Review of Systems Vital Signs Vitals Vital Signs Date Time Temp Pulse Resp B/P Pulse Ox O2 Delivery O2 Flow Rate FiO2 05/08/16 08:00 Nasal Cannula 2.0 05/08/16 07:30 98.5 101 18 126/59 96 Intake and Output 05/07/16 05/07/16 05/08/16 15:00 23:00 07:00 Intake Total 260 ml 2280 ml 1540 ml Balance 260 ml 2280 ml 1540 ml Exam Respiratory: clear to auscultation Cardiovascular: regular rate and rhythm Gastrointestinal: soft Musculoskeletal: nl extremities to inspection Extremities: normal pulses Results Result Diagram: 05/08/16 0535 05/07/16 0535 Results 24 hrs Laboratory Tests Test 05/07/16 20:22 05/08/16 05:35 05/08/16 07:56 05/08/16 12:39 Bedside Glucose 173 128 147 Basophils # 0.0 Basophils % 0.2 Blood Morphology Comment Eosinophils # 0.1 Eosinophils % 0.7 Hematocrit 28.0 L Hemoglobin 9.3 L Lymphocytes # 2.5 Lymphocytes % 12.2 L Mean Corpuscular Hemoglobin 27.6 L Mean Corpuscular Hemoglobin Concent 33.1 Mean Corpuscular Volume 83.3 Mean Platelet Volume 6.7 L Monocytes # 1.6 H Monocytes % 7.8 Neutrophils # 16.0 H Neutrophils % 79.1 H Nucleated Red Blood Cells # 0.0 Nucleated Red Blood Cells % 0.0 Platelet Count 524 H Red Blood Count 3.36 L Red Cell Distribution Width 16.4 H White Blood Count 20.3 H Medications Medications Current Medications Ondansetron HCl (Zofran Inj) 4 mg Q6H PRN IV NAUSEA AND/OR VOMITING Last administered on 05/06/16 16:48; Admin Dose 4 MG; Start 04/28/16 at 11:00 Acetaminophen/ Codeine Phosphate 1 tab 1 tab Q6H PRN PO PAIN Last administered on 05/03/16 13:53; Admin Dose 1 TAB; Start 04/28/16 at 11:00 Acetaminophen (Ofirmev 1000mg/ 100ml Iv) 100 ml @ 400 mls/hr Q6H PRN IVPB PAIN Last administered on 04/28/16 18:17; Admin Dose 400 MLS/HR; Start at 11:00 Sertraline HCl (Zoloft) 100 mg DAILY PO Last administered on 05/08/16 09:44; Admin Dose 100 MG; Start 04/29/16 at 09:00 Miscellaneous Information 1 ea NOTE XX ; Start 04/28/16 at 17:30 Glucose (Glutose) 15 gm Q15M PRN PO DECREASED GLUCOSE; Start 04/28/16 at 17:30 Glucose (Glutose) 22.5 gm Q15M PRN PO DECREASED GLUCOSE; Start 04/28/16 at 17: 30 Dextrose (D50w Syringe) 25 ml Q15M PRN IV DECREASED GLUCOSE; Start 04/28/16 at 17:30 Dextrose (D50w Syringe) 50 ml Q15M PRN IV DECREASED GLUCOSE; Start 04/28/16 at 17:30 Glucagon (Glucagen) 1 mg Q15M PRN IM DECREASED GLUCOSE; Start 04/28/16 at 17:30 Glucose (Glutose) 15 gm Q15M PRN BUCCAL DECREASED GLUCOSE; Start 04/28/16 at 17 :30 Pantoprazole 40 mg 40 mg BID@06,18 IV Last administered on 05/08/16 18:43; Admin Dose 40 MG; Start 04/30/16 at 06:00 Potassium Chloride/Dextrose/ Sod Cl (D5-1/2ns + KCl 20 Meq) 1,000 ml @ 80 mls/ hr [id number] IV Last administered on 05/08/16 12:48; Admin Dose 80 MLS/HR; Start 05/01/16 at 13:00 Alprazolam (Xanax) 1 mg Q12H PRN PO ANXIETY Last administered on 05/07/16 20:35 ; Admin Dose 1 MG; Start 05/03/16 at 05:56 Ferrous Sulfate 325 mg 325 mg BID PO Last administered on 05/08/16 09:44; Admin Dose 325 MG; Start 05/04/16 at 21:00 Imipenem/ Cilastatin Sodium (Primaxin 500 Mg/ 100 ml (Pmx)) 100 ml @ 100 mls/ hr Q8 IVPB Last administered on 05/08/16 14:35; Admin Dose 100 MLS/HR; Start at 16:00 Magnesium Hydroxide (Milk Of Mag) 30 ml QHS PO Last administered on 05/07/16 20 :35; Admin Dose 30 ML; Start 05/06/16 at 21:00 Hydromorphone HCl (Dilaudid) 0.8 mg Q6H PRN IV PAIN Last administered on 16:03; Admin Dose 0.8 MG; Start 05/08/16 at 12:30 Mineral Oil 30 ml 30 ml TID PO Last administered on 05/08/16 14:35; Admin Dose 30 ML; Start 05/08/16 at 13:30; Stop 05/11/16 at 09:01 Vancomycin HCl 2 gm/Sodium Chloride 500 ml @ 125 mls/hr ONCE ONCE IVPB Last administered on 05/08/16 15:41; Admin Dose 125 MLS/HR; Start 05/08/16 at 15:00; Stop 05/08/16 at 18:59 Vancomycin HCl (Vancocin) 250 ml @ 125 mls/hr Q8H IVPB ; Start 05/09/16 at 00:00 Miscellaneous Information (*Rx Drug Level Order Reminder*) VANCO TROUGH @ 1, 500 ON... ONCE ONCE XX ; Start 05/09/16 at 15:00; Stop 05/09/16 at 15:01 JEB VAZQUEZ MD May 08, 2016 18:49
[2016-05-08 19:57] VITALS: BP 122/64; RESP 18
--- NOTE | 2016-05-08 20:52 | CONS ---
Date/Time of Note Date/Time of Note DATE: 05/08/16 TIME: 20:51 Assessment/Plan Assessment/Plan Additional Assessment/Plan Additional Assessment/Plan Impression: 1. Symptomatic cholelithiasis, status post laparoscopic cholecystectomy. 2. possible bile leak ,negative 3. RUQ abdominal pain 4. iron deficiency anemia 5 obesity 6 leucocytosis,persistent,trending down 7.fluid inthe peritoneum is blood Recommendation: 1. f/u MRCP to r/o bile leak 2. if bile leak on MRCP, will need ERCP with stent 3. continue iron replacement 4. I made pt NPO in case 5.[place] scan for bile leak,negative 6.stool for C.Difficile toxins Consultation Date/Type/Reason Admit Date/Time Apr 29, 2016 at 10:27 Type of Consultation: ID [id number] HR Interval Summary Constitutional: improved Exam/Review of Systems Vital Signs Vitals Vital Signs Date Time Temp Pulse Resp B/P Pulse Ox O2 Delivery O2 Flow Rate FiO2 05/08/16 19:57 99.0 96 18 122/64 97 05/08/16 08:00 Nasal Cannula 2.0 Intake and Output 05/07/16 05/07/16 05/08/16 15:00 23:00 07:00 Intake Total 260 ml 2280 ml 1540 ml Balance 260 ml 2280 ml 1540 ml Exam Constitutional: alert, oriented, well developed Psych: nl mood/affect, no complaints Head: atraumatic, normocephalic Eyes: EOMI, PERRL, nl conjunctiva, nl lids, nl sclera ENMT: nl external ears & nose, nl lips & teeth, nl nasal mucosa & septum Neck: non-tender, supple Respiratory: clear to auscultation, normal air movement Cardiovascular: nl pulses, regular rate and rhythm Gastrointestinal: nl liver, spleen, non-tender, soft Musculoskeletal: nl extremities to inspection, nl gait and stance Extremities: normal pulses Neurological: [employer] II-XII intact, nl mental status, nl speech, nl strength Skin: nl turgor, No rash or lesions Lymph: nl lymph nodes Results Result Diagram: 05/08/16 0535 05/07/16 0535 Results 24 hrs Laboratory Tests Test 05/08/16 05:35 05/08/16 07:56 05/08/16 12:39 05/08/16 18:42 Basophils # 0.0 Basophils % 0.2 Blood Morphology Comment Eosinophils # 0.1 Eosinophils % 0.7 Hematocrit 28.0 L Hemoglobin 9.3 L Lymphocytes # 2.5 Lymphocytes % 12.2 L Mean Corpuscular Hemoglobin 27.6 L Mean Corpuscular Hemoglobin Concent 33.1 Mean Corpuscular Volume 83.3 Mean Platelet Volume 6.7 L Monocytes # 1.6 H Monocytes % 7.8 Neutrophils # 16.0 H Neutrophils % 79.1 H Nucleated Red Blood Cells # 0.0 Nucleated Red Blood Cells % 0.0 Platelet Count 524 H Red Blood Count 3.36 L Red Cell Distribution Width 16.4 H White Blood Count 20.3 H Bedside Glucose 128 147 157 Test 05/08/16 20:09 Bedside Glucose 139 Medications Medications Current Medications Ondansetron HCl (Zofran Inj) 4 mg Q6H PRN IV NAUSEA AND/OR VOMITING Last administered on 05/06/16 16:48; Admin Dose 4 MG; Start 04/28/16 at 11:00 Acetaminophen/ Codeine Phosphate 1 tab 1 tab Q6H PRN PO PAIN Last administered on 05/03/16 13:53; Admin Dose 1 TAB; Start 04/28/16 at 11:00 Acetaminophen (Ofirmev 1000mg/ 100ml Iv) 100 ml @ 400 mls/hr Q6H PRN IVPB PAIN Last administered on 04/28/16 18:17; Admin Dose 400 MLS/HR; Start at 11:00 Sertraline HCl (Zoloft) 100 mg DAILY PO Last administered on 05/08/16 09:44; Admin Dose 100 MG; Start 04/29/16 at 09:00 Miscellaneous Information 1 ea NOTE XX ; Start 04/28/16 at 17:30 Glucose (Glutose) 15 gm Q15M PRN PO DECREASED GLUCOSE; Start 04/28/16 at 17:30 Glucose (Glutose) 22.5 gm Q15M PRN PO DECREASED GLUCOSE; Start 04/28/16 at 17: 30 Dextrose (D50w Syringe) 25 ml Q15M PRN IV DECREASED GLUCOSE; Start 04/28/16 at 17:30 Dextrose (D50w Syringe) 50 ml Q15M PRN IV DECREASED GLUCOSE; Start 04/28/16 at 17:30 Glucagon (Glucagen) 1 mg Q15M PRN IM DECREASED GLUCOSE; Start 04/28/16 at 17:30 Glucose (Glutose) 15 gm Q15M PRN BUCCAL DECREASED GLUCOSE; Start 04/28/16 at 17 :30 Pantoprazole 40 mg 40 mg BID@06,18 IV Last administered on 05/08/16 18:43; Admin Dose 40 MG; Start 04/30/16 at 06:00 Potassium Chloride/Dextrose/ Sod Cl (D5-1/2ns + KCl 20 Meq) 1,000 ml @ 80 mls/ hr [id number] IV Last administered on 05/08/16 12:48; Admin Dose 80 MLS/HR; Start 05/01/16 at 13:00 Alprazolam (Xanax) 1 mg Q12H PRN PO ANXIETY Last administered on 05/08/16 18:48 ; Admin Dose 1 MG; Start 05/03/16 at 05:56 Ferrous Sulfate 325 mg 325 mg BID PO Last administered on 05/08/16 09:44; Admin Dose 325 MG; Start 05/04/16 at 21:00 Imipenem/ Cilastatin Sodium (Primaxin 500 Mg/ 100 ml (Pmx)) 100 ml @ 100 mls/ hr Q8 IVPB Last administered on 05/08/16 14:35; Admin Dose 100 MLS/HR; Start at 16:00 Magnesium Hydroxide (Milk Of Mag) 30 ml QHS PO Last administered on 05/07/16 20 :35; Admin Dose 30 ML; Start 05/06/16 at 21:00 Hydromorphone HCl (Dilaudid) 0.8 mg Q6H PRN IV PAIN Last administered on 16:03; Admin Dose 0.8 MG; Start 05/08/16 at 12:30 Mineral Oil 30 ml 30 ml TID PO Last administered on 05/08/16 14:35; Admin Dose 30 ML; Start 05/08/16 at 13:30; Stop 05/11/16 at 09:01 Vancomycin HCl (Vancocin) 250 ml @ 125 mls/hr Q8H IVPB ; Start 05/09/16 at 00:00 Miscellaneous Information (*Rx Drug Level Order Reminder*) VANCO TROUGH @ 1, 500 ON... ONCE ONCE XX ; Start 05/09/16 at 15:00; Stop 05/09/16 at 15:01 JESUS AGUILAR MD May 08, 2016 20:52
[2016-05-08] MEDS: MAGNESIUM HYDROXIDE 30ML CUP PO SCH (21:39)
[2016-05-09] MEDS: HYDROmorphONE 1 MG/ML SYG IV PRN ×4 (00:15→19:33)
[2016-05-09] MEDS: VANCOMYCIN 1 GM in NS 250 ML IVPB SCH ×3 (00:16→16:28)
[2016-05-09] MEDS: MINERAL OIL 30ML CUP PO SCH ×4 (02:21→21:00)
[2016-05-09 05:24] LABS: BASOPHILS % 0.3 % (0.0-2.0); EOSINOPHILS # 0.2 10^3/ul (0.0-0.5); EOSINOPHILS % 1.3 % (0.0-7.0); HEMATOCRIT 27.2 % (37.0-47.0); LYMPHOCYTES % 16.6 % (15.0-51.0); MEAN CORPUSCULAR HEMOGLOBIN 27.6 pg (29.0-33.0); MEAN CORPUSCULAR HGB CONC 33.1 g/dl (32.0-37.0); MEAN CORPUSCULAR VOLUME 83.3 fl (82.0-101.0); MEAN PLATELET VOLUME 6.8 fl (7.4-10.4); MONOCYTE # 1.5 10^3/ul (0.3-0.9); MONOCYTES % 8.1 % (0.0-11.0); NEUTROPHIL # 13.2 10^3/ul (1.6-7.5); NEUTROPHILS % 73.7 % (39.0-77.0); PLATELET COUNT 535 10^3/UL (140-440); RED BLOOD COUNT 3.27 10^6/ul (4.20-5.40); RED CELL DISTRIBUTION WIDTH 16.7 % (11.5-14.5); UNCORRECTED WBC 17.9 10^3/ul (4.8-10.8); WHITE BLOOD COUNT 17.9 10^3/ul (4.8-10.8)
[2016-05-09] MEDS: PANTOPRAZOLE 40 MG INJ IV SCH ×2 (06:06→17:26)
[2016-05-09] MEDS: IMIPENEM-CILAST 500MG IV (PMX) 100 ML IVPB SCH ×3 (06:06→23:00)
[2016-05-09 06:25] LABS: CONDITION 1; LH ANALYZER COMMENTS 1
[2016-05-09 08:04] VITALS: BP 110/51; RESP 16
[2016-05-09] MEDS: metFORMIN 500 MG TAB PO SCH ×2 (08:43→17:27)
[2016-05-09] MEDS: INSULIN ASPART [NOVOLOG] 3 ML PEN SC SCH ×4 (08:44→21:00)
[2016-05-09] MEDS: SERTRALINE 100 MG TAB PO SCH (08:44)
[2016-05-09] MEDS: FERROUS SULFATE (EC) 325 MG TAB PO SCH ×2 (08:44→21:57)
[2016-05-09] MEDS: ALPRAZOLAM 0.5 MG TAB PO PRN ×2 (11:16→23:17)
[2016-05-09] MEDS: D5W-0.45 NACL + KCL 20 MEQ 1,000 ML IV SCH (11:21)
--- NOTE | 2016-05-09 14:57 | CONS ---
Date/Time of Note Date/Time of Note DATE: 05/09/16 TIME: 14:55 Assessment/Plan Assessment/Plan Chief Complaint/Hosp Course SUBJECTIVE: No acute events. The patient is alert, feels better, looks comfortable. She is afebrile. ANTIMICROBIALS: The patient is on imipenem and Vanco PHYSICAL EXAMINATION: GENERAL: This is a morbidly obese, middle-aged woman who is alert, in no distress. HEENT: Head atraumatic, normocephalic. Sclerae anicteric. Buccal mucosa pink. NECK: Obese. CHEST: Rise symmetrical. Breath sounds diminished to bases. HEART: S1, S2. ABDOMEN: Soft. Bowel tones present. EXTREMITIES: Without cyanosis. ASSESSMENT: 1. Systemic inflammatory response syndrome with persistent leukocytosis==> improving. 2. History of laparoscopic cholecystectomy secondary to symptomatic cholelithiasis. 3. Pneumonia. 4. Obesity. 5. Anemia. 6. Fluid in the peritoneum per CT of the abdomen, likely blood. 7. C albicans UTI PLAN: Improving. WBC slowly tracing down, will add Diflucan, continue abx, f/u surgical rec-s DW staff/pt Problems: Consultation Date/Type/Reason Admit Date/Time Apr 29, 2016 at 10:27 Type of Consultation: ID 24 HR Interval Summary Constitutional: improved Exam/Review of Systems Vital Signs Vitals Vital Signs Date Time Temp Pulse Resp B/P Pulse Ox O2 Delivery O2 Flow Rate FiO2 05/09/16 08:30 Nasal Cannula 2.0 05/09/16 08:04 99.3 93 16 110/51 96 Intake and Output 05/08/16 05/08/16 05/09/16 15:00 23:00 07:00 Intake Total 400 ml 2340 ml 1610 ml Balance 400 ml 2340 ml 1610 ml Results Result Diagram: 05/09/16 0500 05/07/16 0535 Results 24 hrs Laboratory Tests Test 05/08/16 18:42 05/08/16 20:09 05/09/16 05:00 05/09/16 08:06 Bedside Glucose 157 139 260 H Basophils # 0.0 Basophils % 0.3 Blood Morphology Comment Eosinophils # 0.2 Eosinophils % 1.3 Hematocrit 27.2 L Hemoglobin 9.0 L Lymphocytes # 3.0 H Lymphocytes % 16.6 Mean Corpuscular Hemoglobin 27.6 L Mean Corpuscular Hemoglobin Concent 33.1 Mean Corpuscular Volume 83.3 Mean Platelet Volume 6.8 L Monocytes # 1.5 H Monocytes % 8.1 Neutrophils # 13.2 H Neutrophils % 73.7 Nucleated Red Blood Cells # 0.0 Nucleated Red Blood Cells % 0.0 Platelet Count 535 H Red Blood Count 3.27 L Red Cell Distribution Width 16.7 H White Blood Count 17.9 H Test 05/09/16 11:19 Bedside Glucose 126 Medications Medications Current Medications Ondansetron HCl (Zofran Inj) 4 mg Q6H PRN IV NAUSEA AND/OR VOMITING Last administered on 05/06/16 16:48; Admin Dose 4 MG; Start 04/28/16 at 11:00 Acetaminophen/ Codeine Phosphate 1 tab 1 tab Q6H PRN PO PAIN Last administered on 05/03/16 13:53; Admin Dose 1 TAB; Start 04/28/16 at 11:00 Acetaminophen (Ofirmev 1000mg/ 100ml Iv) 100 ml @ 400 mls/hr Q6H PRN IVPB PAIN Last administered on 04/28/16 18:17; Admin Dose 400 MLS/HR; Start at 11:00 Sertraline HCl (Zoloft) 100 mg DAILY PO Last administered on 05/09/16 08:44; Admin Dose 100 MG; Start 04/29/16 at 09:00 Miscellaneous Information 1 ea NOTE XX ; Start 04/28/16 at 17:30 Glucose (Glutose) 15 gm Q15M PRN PO DECREASED GLUCOSE; Start 04/28/16 at 17:30 Glucose (Glutose) 22.5 gm Q15M PRN PO DECREASED GLUCOSE; Start 04/28/16 at 17: 30 Dextrose (D50w Syringe) 25 ml Q15M PRN IV DECREASED GLUCOSE; Start 04/28/16 at 17:30 Dextrose (D50w Syringe) 50 ml Q15M PRN IV DECREASED GLUCOSE; Start 04/28/16 at 17:30 Glucagon (Glucagen) 1 mg Q15M PRN IM DECREASED GLUCOSE; Start 04/28/16 at 17:30 Glucose (Glutose) 15 gm Q15M PRN BUCCAL DECREASED GLUCOSE; Start 04/28/16 at 17 :30 Pantoprazole (Protonix Iv) 40 mg BID@06,18 IV Last administered on 05/09/16 06: 06; Admin Dose 40 MG; Start 04/30/16 at 06:00 Alprazolam (Xanax) 1 mg Q12H PRN PO ANXIETY Last administered on 05/09/16 11:16 ; Admin Dose 1 MG; Start 05/03/16 at 05:56 Ferrous Sulfate 325 mg 325 mg BID PO Last administered on 05/09/16 08:44; Admin Dose 325 MG; Start 05/04/16 at 21:00 Imipenem/ Cilastatin Sodium (Primaxin 500 Mg/ 100 ml (Pmx)) 100 ml @ 100 mls/ hr Q8 IVPB Last administered on 05/09/16 14:17; Admin Dose 100 MLS/HR; Start at 16:00 Magnesium Hydroxide (Milk Of Mag) 30 ml QHS PO Last administered on 05/08/16 21 :39; Admin Dose 30 ML; Start 05/06/16 at 21:00 Hydromorphone HCl (Dilaudid) 0.8 mg Q6H PRN IV PAIN Last administered on 12:31; Admin Dose 0.8 MG; Start 05/08/16 at 12:30 Mineral Oil 30 ml 30 ml TID PO Last administered on 05/09/16 08:45; Admin Dose 30 ML; Start 05/08/16 at 13:30; Stop 05/11/16 at 09:01 Vancomycin HCl (Vancocin) 250 ml @ 125 mls/hr Q8H IVPB Last administered on 08:46; Admin Dose 125 MLS/HR; Start 05/09/16 at 00:00 Miscellaneous Information (*Rx Drug Level Order Reminder*) VANCO TROUGH @ 1, 500 ON... ONCE ONCE XX ; Start 05/09/16 at 15:00; Stop 05/09/16 at 15:01 Heparin Sodium (Porcine) (Heparin (5000 Units/0.5 ml)) 5,000 unit Q8 SC ; Start 05/09/16 at 15:00 ABNER BALL NP May 09, 2016 14:57
[2016-05-09] MEDS ORDERED: HEPARIN 5,000 UNIT/0.5 ML SYG SC SCH (15:00)
--- NOTE | 2016-05-09 15:45 | PN ---
DATE: 05/09/2016 SUBJECTIVE: Still complaining of abdominal discomfort and pain. She has not been out of bed yet. She had a lot of bowel movement last night and feels better from that point of view. OBJECTIVE: GENERAL: Alert, awake, oriented. Still appears slightly short of breath. Lips are less cyanotic. LABORATORY: WBC dropped to 17,900 today, with 73% segmented, hemoglobin 9, hematocrit 27.2. Chemistry, blood sugars 260 and 126 today, on 2 occasions. IMAGING: No recent imaging, except chest x-ray which was done on the 2nd. Chest x-ray shows an elevated right hemidiaphragm. Abdomen protruded with fat, but it quite soft. Bowel sounds present. There is minimal tenderness on deep pressure on the abdomen. Lower extremities no calf tenderness. Homans sign is negative. The patient's efforts to do deep inspiration is not effective. The maximal tidal volume that she brings up on incentive spirometry is 600 mL. ASSESSMENT: 1. Status post laparoscopic cholecystectomy, with an apparent bleeding intraperitoneally. 2. The patient has received 2 units of blood so far. 3. The patient is short of breath. 4. The patient requires pain medication. We are trying to taper the pain medication down. Now she is on 0.8 mg of Dilaudid every 6 hours. Has had a bowel movement, tolerating a diet. PLAN: I will request Dr. Lujan, fuel operator, to see the patient in regards to atelectasis, difficulty taking deep breaths, low tidal volume and the need for oxygen that she is on all the time. I am not sure what we are treating with antibiotics. Of note, the patient has WBC high up, but it appears that probably this is due to blood irritating the peritoneal cavity and peritoneum, most probably. I will discuss with the pulmonary and infectious disease people. Will continue to encourage the patient to get out of bed, walk around and take deep breaths and will wait for the further recommendations from the fuel operator. Dictated By: BRADLY CORTES/ARGELIA Conf#: [id number] DID#: [id number] MTDD
[2016-05-09] MEDS: FLUCONAZOLE 100 MG TAB PO SCH (16:21)
--- NOTE | 2016-05-09 16:51 | CONS ---
DATE OF ADMISSION: 04/29/2016 DATE OF CONSULTATION: 05/09/2016 REASON FOR CONSULTATION: Shortness of breath. Thank you, Dr. Georges, for this consult. HISTORY OF PRESENT ILLNESS: This is a morbidly obese 35-year-old lady who came in on 04/28/2016 wit h abdominal pain, nausea, vomiting, was found to have acute cholecystitis. She underwent laparoscop ic cholecystectomy performed on 04/29/[address] Dixon and Dr[address] Georges. Surgery itself was unremark able. The patient tolerated the procedure well, but postoperatively she has had persistent hypoxemi a and bibasilar atelectasis on chest x-ray. I was consulted today by Dr. Georges for further evaluati on and recommendations given her persistent respiratory distress. Of note, she has had a CT pulmon xenia angiogram performed on 05/05/2016 that was unremarkable other than bibasilar atelectasis and mod erate amount of free intraperitoneal fluid seen in the liver, recent chest x-ray performed 7 showed elevated right hemidiaphragm with right bibasilar atelectasis. Patient remains hypoxemic o n 2 L nasal cannula. PAST MEDICAL HISTORY: Hypertension, hyperlipidemia, morbid obesity. MEDICATIONS: Per chart. ALLERGIES: NONE. SOCIAL HISTORY: Nonsmoker, no alcohol, no history of drug use. FAMILY HISTORY: Noncontributory. SYSTEMS REVIEW: A 12-point review of systems was negative other than that mentioned above. PHYSICAL EXAMINATION: GENERAL: Morbidly obese lady, awake, alert, oriented, comfortable at rest, talking in full and comp lete sentences. VITAL SIGNS: Currently afebrile. Pulse is 93, blood pressure 110/50, O2 saturation 96% on 2 L nasa l cannula. NECK: Supple. No JVD or lymphadenopathy. CARDIAC: S1, S2, no added sounds or murmurs. CHEST: Diminished air entry bilaterally. ABDOMEN: Obese, soft, nontender, no guarding or rebound. EXTREMITIES: No cyanosis, clubbing or edema. NEUROLOGIC: Generalized weakness. IMAGING: Chest CT and chest x-ray as above. LABORATORY DATA: White count 17.9, hemoglobin 9.0, platelets of 535. Chemistry: BUN 4, creatinine 0.35, INR 1.01. IMPRESSION AND PLAN: 1. Post-laparoscopic cholecystectomy. 2. Hypoxemic respiratory failure. 3. Morbid obesity. Patient's hypoxemia and elevated hemidiaphragm postoperatively, likely secondar y to sedentary status and poor alveolar ventilation. It is important that she be encouraged out of bed to ambulate. 4. Continue incentive spirometry. 5. Continue DVT and GI prophylaxis. Dictated By: NADYA BROWNLEE/ARGELIA Conf#: [id number] DID#: [id number]
--- NOTE | 2016-05-09 17:00 | PN ---
Date/Time of Note Date/Time of Note DATE: 05/09/16 TIME: 16:58 Assessment/Plan VTE Prophylaxis VTE Prophylaxis Intervention: other Lines/Catheters IV [facility] Peripheral IV Urinary Cath still in place: No Assessment/Plan Chief Complaint/Hosp Course 1. Symptomatic cholelithiasis, status post laparoscopic cholecystectomy. Will continue IV fluids. 2. Noninsulin-dependent diabetes mellitus. 3. Obesity. 4. Anxiety and depression. 5 obesity 6 leucocytosis 7 post op anemia 8 HIDA NEG 9 lung atelectasis plan antibiotic ck labs per surgery dr richard Casarez ck wbc BETTER NOW Problems: Subjective 24 Hr Interval Summary Subjective hx not possible: other (FEELING BETTER) Exam/Review of Systems Vital Signs Vitals Vital Signs Date Time Temp Pulse Resp B/P Pulse Ox O2 Delivery O2 Flow Rate FiO2 05/09/16 08:30 Nasal Cannula 2.0 05/09/16 08:04 99.3 93 16 110/51 96 Intake and Output 05/08/16 05/08/16 05/09/16 15:00 23:00 07:00 Intake Total 400 ml 2340 ml 1610 ml Balance 400 ml 2340 ml 1610 ml Exam Cardiovascular: regular rate and rhythm Gastrointestinal: bowel sounds (+), soft, No tender Musculoskeletal: muscle tone, nl extremities to inspection Results Result Diagram: 05/09/16 0500 05/07/16 0535 Results 24 hrs Laboratory Tests Test 05/08/16 18:42 05/08/16 20:09 05/09/16 05:00 05/09/16 08:06 Bedside Glucose 157 139 260 H Basophils # 0.0 Basophils % 0.3 Blood Morphology Comment Eosinophils # 0.2 Eosinophils % 1.3 Hematocrit 27.2 L Hemoglobin 9.0 L Lymphocytes # 3.0 H Lymphocytes % 16.6 Mean Corpuscular Hemoglobin 27.6 L Mean Corpuscular Hemoglobin Concent 33.1 Mean Corpuscular Volume 83.3 Mean Platelet Volume 6.8 L Monocytes # 1.5 H Monocytes % 8.1 Neutrophils # 13.2 H Neutrophils % 73.7 Nucleated Red Blood Cells # 0.0 Nucleated Red Blood Cells % 0.0 Platelet Count 535 H Red Blood Count 3.27 L Red Cell Distribution Width 16.7 H White Blood Count 17.9 H Test 05/09/16 11:19 05/09/16 15:05 Bedside Glucose 126 Vancomycin Level Trough 6.7 L Medications Medications Current Medications Ondansetron HCl (Zofran Inj) 4 mg Q6H PRN IV NAUSEA AND/OR VOMITING Last administered on 05/06/16 16:48; Admin Dose 4 MG; Start 04/28/16 at 11:00 Acetaminophen/ Codeine Phosphate 1 tab 1 tab Q6H PRN PO PAIN Last administered on 05/03/16 13:53; Admin Dose 1 TAB; Start 04/28/16 at 11:00 Acetaminophen (Ofirmev 1000mg/ 100ml Iv) 100 ml @ 400 mls/hr Q6H PRN IVPB PAIN Last administered on 04/28/16 18:17; Admin Dose 400 MLS/HR; Start at 11:00 Sertraline HCl (Zoloft) 100 mg DAILY PO Last administered on 05/09/16 08:44; Admin Dose 100 MG; Start 04/29/16 at 09:00 Miscellaneous Information 1 ea NOTE XX ; Start 04/28/16 at 17:30 Glucose (Glutose) 15 gm Q15M PRN PO DECREASED GLUCOSE; Start 04/28/16 at 17:30 Glucose (Glutose) 22.5 gm Q15M PRN PO DECREASED GLUCOSE; Start 04/28/16 at 17: 30 Dextrose (D50w Syringe) 25 ml Q15M PRN IV DECREASED GLUCOSE; Start 04/28/16 at 17:30 Dextrose (D50w Syringe) 50 ml Q15M PRN IV DECREASED GLUCOSE; Start 04/28/16 at 17:30 Glucagon (Glucagen) 1 mg Q15M PRN IM DECREASED GLUCOSE; Start 04/28/16 at 17:30 Glucose (Glutose) 15 gm Q15M PRN BUCCAL DECREASED GLUCOSE; Start 04/28/16 at 17 :30 Pantoprazole (Protonix Iv) 40 mg BID@06,18 IV Last administered on 05/09/16 06: 06; Admin Dose 40 MG; Start 04/30/16 at 06:00 Alprazolam (Xanax) 1 mg Q12H PRN PO ANXIETY Last administered on 05/09/16 11:16 ; Admin Dose 1 MG; Start 05/03/16 at 05:56 Ferrous Sulfate 325 mg 325 mg BID PO Last administered on 05/09/16 08:44; Admin Dose 325 MG; Start 05/04/16 at 21:00 Imipenem/ Cilastatin Sodium (Primaxin 500 Mg/ 100 ml (Pmx)) 100 ml @ 100 mls/ hr Q8 IVPB Last administered on 05/09/16 14:17; Admin Dose 100 MLS/HR; Start at 16:00 Magnesium Hydroxide (Milk Of Mag) 30 ml QHS PO Last administered on 05/08/16 21 :39; Admin Dose 30 ML; Start 05/06/16 at 21:00 Hydromorphone HCl (Dilaudid) 0.8 mg Q6H PRN IV PAIN Last administered on 12:31; Admin Dose 0.8 MG; Start 05/08/16 at 12:30 Mineral Oil 30 ml 30 ml TID PO Last administered on 05/09/16 08:45; Admin Dose 30 ML; Start 05/08/16 at 13:30; Stop 05/11/16 at 09:01 Vancomycin HCl (Vancocin) 250 ml @ 125 mls/hr Q8H IVPB Last administered on 16:28; Admin Dose 125 MLS/HR; Start 05/09/16 at 00:00; Stop 05/09/16 at 19: 00 Fluconazole (Diflucan) 100 mg DAILY PO Last administered on 05/09/16 16:21; Admin Dose 100 MG; Start 05/09/16 at 15:00 Heparin Sodium (Porcine) 5000 unit 5,000 unit Q12 SC ; Start 05/09/16 at 21:00 Vancomycin HCl/ Sodium Chloride (Vancocin/NS) 250 ml @ 83.333 mls/ hr Q8H IVPB ; Start 05/10/16 at 00:00 JEB VAZQUEZ MD May 09, 2016 17:00
[2016-05-09 20:41] VITALS: BP 121/65; RESP 18
--- NOTE | 2016-05-09 20:41 | CONS ---
Date/Time of Note Date/Time of Note DATE: 05/09/16 TIME: 20:41 Assessment/Plan Assessment/Plan Additional Assessment/Plan Additional Assessment/Plan Impression: 1. Symptomatic cholelithiasis, status post laparoscopic cholecystectomy. 2. possible bile leak ,negative 3. RUQ abdominal pain 4. iron deficiency anemia 5 obesity 6 leucocytosis,persistent,trending down 7.fluid in the peritoneum is blood Recommendation: 1. f/u MRCP to r/o bile leak 2. if bile leak on MRCP, will need ERCP with stent 3. continue iron replacement 4. I made pt NPO in case 5.[place] scan for bile leak,negative 6.stool for C.Difficile toxins,pending Consultation Date/Type/Reason Admit Date/Time Apr 29, 2016 at 10:27 Type of Consultation: ID [id number] HR Interval Summary Constitutional: improved, no complaints Exam/Review of Systems Vital Signs Vitals Vital Signs Date Time Temp Pulse Resp B/P Pulse Ox O2 Delivery O2 Flow Rate FiO2 05/09/16 08:30 Nasal Cannula 2.0 05/09/16 08:04 99.3 93 16 110/51 96 Intake and Output 05/08/16 05/08/16 05/09/16 15:00 23:00 07:00 Intake Total 400 ml 2340 ml 1610 ml Balance 400 ml 2340 ml 1610 ml Exam Constitutional: alert, oriented, well developed Psych: nl mood/affect, no complaints Head: atraumatic, normocephalic Eyes: EOMI, PERRL, nl conjunctiva, nl lids, nl sclera ENMT: nl external ears & nose, nl lips & teeth, nl nasal mucosa & septum Neck: non-tender, supple Respiratory: clear to auscultation, normal air movement Cardiovascular: nl pulses, regular rate and rhythm Gastrointestinal: nl liver, spleen, non-tender, soft Musculoskeletal: nl extremities to inspection, nl gait and stance Extremities: normal pulses Neurological: PACU RN II-XII intact, nl mental status, nl speech, nl strength Skin: nl turgor, No rash or lesions Lymph: nl lymph nodes Results Result Diagram: 05/09/16 0500 05/07/16 0535 Results 24 hrs Laboratory Tests Test 05/09/16 05:00 05/09/16 08:06 05/09/16 11:19 05/09/16 15:05 Basophils # 0.0 Basophils % 0.3 Blood Morphology Comment Eosinophils # 0.2 Eosinophils % 1.3 Hematocrit 27.2 L Hemoglobin 9.0 L Lymphocytes # 3.0 H Lymphocytes % 16.6 Mean Corpuscular Hemoglobin 27.6 L Mean Corpuscular Hemoglobin Concent 33.1 Mean Corpuscular Volume 83.3 Mean Platelet Volume 6.8 L Monocytes # 1.5 H Monocytes % 8.1 Neutrophils # 13.2 H Neutrophils % 73.7 Nucleated Red Blood Cells # 0.0 Nucleated Red Blood Cells % 0.0 Platelet Count 535 H Red Blood Count 3.27 L Red Cell Distribution Width 16.7 H White Blood Count 17.9 H Bedside Glucose 260 H 126 Vancomycin Level Trough 6.7 L Test 05/09/16 17:01 Bedside Glucose 96 Medications Medications Current Medications Ondansetron HCl (Zofran Inj) 4 mg Q6H PRN IV NAUSEA AND/OR VOMITING Last administered on 05/06/16 16:48; Admin Dose 4 MG; Start 04/28/16 at 11:00 Acetaminophen/ Codeine Phosphate 1 tab 1 tab Q6H PRN PO PAIN Last administered on 05/03/16 13:53; Admin Dose 1 TAB; Start 04/28/16 at 11:00 Acetaminophen (Ofirmev 1000mg/ 100ml Iv) 100 ml @ 400 mls/hr Q6H PRN IVPB PAIN Last administered on 04/28/16 18:17; Admin Dose 400 MLS/HR; Start at 11:00 Sertraline HCl (Zoloft) 100 mg DAILY PO Last administered on 05/09/16 08:44; Admin Dose 100 MG; Start 04/29/16 at 09:00 Miscellaneous Information 1 ea NOTE XX ; Start 04/28/16 at 17:30 Glucose (Glutose) 15 gm Q15M PRN PO DECREASED GLUCOSE; Start 04/28/16 at 17:30 Glucose (Glutose) 22.5 gm Q15M PRN PO DECREASED GLUCOSE; Start 04/28/16 at 17: 30 Dextrose (D50w Syringe) 25 ml Q15M PRN IV DECREASED GLUCOSE; Start 04/28/16 at 17:30 Dextrose (D50w Syringe) 50 ml Q15M PRN IV DECREASED GLUCOSE; Start 04/28/16 at 17:30 Glucagon (Glucagen) 1 mg Q15M PRN IM DECREASED GLUCOSE; Start 04/28/16 at 17:30 Glucose (Glutose) 15 gm Q15M PRN BUCCAL DECREASED GLUCOSE; Start 04/28/16 at 17 :30 Pantoprazole (Protonix Iv) 40 mg BID@06,18 IV Last administered on 05/09/16 17: 26; Admin Dose 40 MG; Start 04/30/16 at 06:00 Alprazolam (Xanax) 1 mg Q12H PRN PO ANXIETY Last administered on 05/09/16 11:16 ; Admin Dose 1 MG; Start 05/03/16 at 05:56 Ferrous Sulfate 325 mg 325 mg BID PO Last administered on 05/09/16 08:44; Admin Dose 325 MG; Start 05/04/16 at 21:00 Imipenem/ Cilastatin Sodium (Primaxin 500 Mg/ 100 ml (Pmx)) 100 ml @ 100 mls/ hr Q8 IVPB Last administered on 05/09/16 14:17; Admin Dose 100 MLS/HR; Start at 16:00 Magnesium Hydroxide (Milk Of Mag) 30 ml QHS PO Last administered on 05/08/16 21 :39; Admin Dose 30 ML; Start 05/06/16 at 21:00 Hydromorphone HCl (Dilaudid) 0.8 mg Q6H PRN IV PAIN Last administered on 19:33; Admin Dose 0.8 MG; Start 05/08/16 at 12:30 Mineral Oil (Mineral Oil) 30 ml TID PO Last administered on 05/09/16 08:45; Admin Dose 30 ML; Start 05/08/16 at 13:30; Stop 05/11/16 at 09:01 Fluconazole (Diflucan) 100 mg DAILY PO Last administered on 05/09/16 16:21; Admin Dose 100 MG; Start 05/09/16 at 15:00 Heparin Sodium (Porcine) 5000 unit 5,000 unit Q12 SC ; Start 05/09/16 at 21:00 Vancomycin HCl/ Sodium Chloride (Vancocin/NS) 250 ml @ 83.333 mls/ hr Q8H IVPB ; Start 05/10/16 at 00:00 JESUS AGUILAR MD May 09, 2016 20:41
[2016-05-09] MEDS: MAGNESIUM HYDROXIDE 30ML CUP PO SCH (21:56)
[2016-05-09] MEDS: HEPARIN 5,000 UNIT/0.5 ML SYG SC SCH (21:58)
[2016-05-10] MEDS: VANCOMYCIN 1.5 GM in SOD CHLORIDE 0.9% 250 ML IVPB SCH ×3 (01:06→15:04)
[2016-05-10] MEDS: HYDROmorphONE 1 MG/ML SYG IV PRN ×4 (01:19→20:30)
[2016-05-10] MEDS: PANTOPRAZOLE 40 MG INJ IV SCH (06:22)
[2016-05-10] MEDS: IMIPENEM-CILAST 500MG IV (PMX) 100 ML IVPB SCH ×3 (06:22→23:40)
[2016-05-10 07:36] VITALS: BP 104/51; RESP 18
[2016-05-10] MEDS: INSULIN ASPART [NOVOLOG] 3 ML PEN SC SCH ×4 (08:00→20:37)
[2016-05-10] MEDS: FLUCONAZOLE 100 MG TAB PO SCH (08:36)
[2016-05-10] MEDS: FERROUS SULFATE (EC) 325 MG TAB PO SCH ×2 (08:36→20:40)
[2016-05-10] MEDS: metFORMIN 500 MG TAB PO SCH ×2 (08:36→17:53)
[2016-05-10] MEDS: SERTRALINE 100 MG TAB PO SCH (08:36)
[2016-05-10] MEDS: MINERAL OIL 30ML CUP PO SCH ×2 (08:36→12:18)
[2016-05-10] MEDS: HEPARIN 5,000 UNIT/0.5 ML SYG SC SCH ×2 (08:40→20:38)
[2016-05-10 11:46] LABS: HEMOGLOBIN 8.5 g/dl (12.0-16.0); LYMPHOCYTES % 21.3 % (15.0-51.0); MEAN CORPUSCULAR HEMOGLOBIN 26.9 pg (29.0-33.0); MEAN CORPUSCULAR HGB CONC 30.4 g/dl (32.0-37.0); MEAN CORPUSCULAR VOLUME 88.6 fl (82.0-101.0); MEAN PLATELET VOLUME 9.2 fl (7.4-10.4); MONOCYTES % 6.9 % (0.0-11.0); NEUTROPHILS % 67.7 % (39.0-77.0); PLATELET COUNT 509 10^3/UL (140-440); RED BLOOD COUNT 3.16 10^6/ul (4.20-5.40); RED CELL DISTRIBUTION WIDTH 16.5 % (11.5-14.5); WHITE BLOOD COUNT 15.7 10^3/ul (4.8-10.8)
[2016-05-10 11:47] LABS: BASOPHIL # 0.1 10^3/ul (0.0-0.1); BASOPHILS % 0.3 % (0.0-2.0); EOSINOPHILS # 0.3 10^3/ul (0.0-0.5); EOSINOPHILS % 1.6 % (0.0-7.0); LYMPHOCYTES # 3.3 10^3/ul (0.8-2.9); MONOCYTE # 1.1 10^3/ul (0.3-0.9); NEUTROPHIL # 10.6 10^3/ul (1.6-7.5); NUCLEATED RED BLOOD CELLS # 0.1 10^3/ul (0.0-0.0); NUCLEATED RED BLOOD CELLS% 0.4 /100WBC (0.0-0.0)
--- NOTE | 2016-05-10 12:02 | PN ---
Date/Time of Note Date/Time of Note DATE: 05/10/16 TIME: 12:01 Assessment/Plan VTE Prophylaxis VTE Prophylaxis Intervention: other Lines/Catheters IV Catheter Type (from [facility]): [facility] Urinary Cath still in place: No Assessment/Plan Chief Complaint/Hosp Course 1. Symptomatic cholelithiasis, status post laparoscopic cholecystectomy. Will continue IV fluids. 2. Noninsulin-dependent diabetes mellitus. 3. Obesity. 4. Anxiety and depression. 5 obesity 6 leucocytosis 7 post op anemia 8 HIDA NEG 9 lung atelectasis plan antibiotic ck labs per surgery dr richard Casarez ck wbc BETTER NOW Problems: Subjective 24 Hr Interval Summary Cardiovascular: no complaints Gastrointestinal: no complaints Genitourinary: no complaints Musculoskeletal: no complaints Exam/Review of Systems Vital Signs Vitals Vital Signs Date Time Temp Pulse Resp B/P Pulse Ox O2 Delivery O2 Flow Rate FiO2 05/10/16 08:00 Nasal Cannula 3.0 05/10/16 07:36 98.3 95 18 104/51 97 Intake and Output 05/09/16 05/09/16 05/10/16 14:59 22:59 06:59 Intake Total 570 ml 1470 ml 1190 ml Balance 570 ml 1470 ml 1190 ml Exam Neck: supple Respiratory: clear to auscultation Cardiovascular: regular rate and rhythm Gastrointestinal: soft Extremities: edema Results Result Diagram: 05/10/16 0558 05/07/16 0535 Results 24 hrs Laboratory Tests Test 05/09/16 15:05 05/09/16 17:01 05/09/16 20:40 05/10/16 05:58 Vancomycin Level Trough 6.7 L Bedside Glucose 96 130 Basophils # 0.1 Basophils % 0.3 Eosinophils # 0.3 Eosinophils % 1.6 Hematocrit 28.0 L Hemoglobin 8.5 L Lymphocytes # 3.3 H Lymphocytes % 21.3 Mean Corpuscular Hemoglobin 26.9 L Mean Corpuscular Hemoglobin Concent 30.4 L Mean Corpuscular Volume 88.6 Mean Platelet Volume 9.2 # Monocytes # 1.1 H Monocytes % 6.9 Neutrophils # 10.6 H Neutrophils % 67.7 Nucleated Red Blood Cells # 0.1 H Nucleated Red Blood Cells % 0.4 H Platelet Count 509 H Red Blood Count 3.16 L Red Cell Distribution Width 16.5 H White Blood Count 15.7 H Test 05/10/16 07:48 05/10/16 11:53 Bedside Glucose 120 101 Medications Medications Current Medications Ondansetron HCl (Zofran Inj) 4 mg Q6H PRN IV NAUSEA AND/OR VOMITING Last administered on 05/06/16 16:48; Admin Dose 4 MG; Start 04/28/16 at 11:00 Acetaminophen/ Codeine Phosphate 1 tab 1 tab Q6H PRN PO PAIN Last administered on 05/03/16 13:53; Admin Dose 1 TAB; Start 04/28/16 at 11:00 Acetaminophen (Ofirmev 1000mg/ 100ml Iv) 100 ml @ 400 mls/hr Q6H PRN IVPB PAIN Last administered on 04/28/16 18:17; Admin Dose 400 MLS/HR; Start at 11:00 Sertraline HCl (Zoloft) 100 mg DAILY PO Last administered on 05/10/16 08:36; Admin Dose 100 MG; Start 04/29/16 at 09:00 Miscellaneous Information 1 ea NOTE XX ; Start 04/28/16 at 17:30 Glucose (Glutose) 15 gm Q15M PRN PO DECREASED GLUCOSE; Start 04/28/16 at 17:30 Glucose (Glutose) 22.5 gm Q15M PRN PO DECREASED GLUCOSE; Start 04/28/16 at 17: 30 Dextrose (D50w Syringe) 25 ml Q15M PRN IV DECREASED GLUCOSE; Start 04/28/16 at 17:30 Dextrose (D50w Syringe) 50 ml Q15M PRN IV DECREASED GLUCOSE; Start 04/28/16 at 17:30 Glucagon (Glucagen) 1 mg Q15M PRN IM DECREASED GLUCOSE; Start 04/28/16 at 17:30 Glucose (Glutose) 15 gm Q15M PRN BUCCAL DECREASED GLUCOSE; Start 04/28/16 at 17 :30 Pantoprazole (Protonix Iv) 40 mg BID@06,18 IV Last administered on 05/10/16 06: 22; Admin Dose 40 MG; Start 04/30/16 at 06:00 Alprazolam (Xanax) 1 mg Q12H PRN PO ANXIETY Last administered on 05/09/16 23:17 ; Admin Dose 1 MG; Start 05/03/16 at 05:56 Ferrous Sulfate 325 mg 325 mg BID PO Last administered on 05/10/16 08:36; Admin Dose 325 MG; Start 05/04/16 at 21:00 Imipenem/ Cilastatin Sodium (Primaxin 500 Mg/ 100 ml (Pmx)) 100 ml @ 100 mls/ hr Q8 IVPB Last administered on 05/10/16 06:22; Admin Dose 100 MLS/HR; Start at 16:00 Magnesium Hydroxide (Milk Of Mag) 30 ml QHS PO Last administered on 05/09/16 21 :56; Admin Dose 30 ML; Start 05/06/16 at 21:00 Hydromorphone HCl (Dilaudid) 0.8 mg Q6H PRN IV PAIN Last administered on 08:15; Admin Dose 0.8 MG; Start 05/08/16 at 12:30 Mineral Oil (Mineral Oil) 30 ml TID PO Last administered on 05/09/16 08:45; Admin Dose 30 ML; Start 05/08/16 at 13:30; Stop 05/11/16 at 09:01 Fluconazole (Diflucan) 100 mg DAILY PO Last administered on 05/10/16 08:36; Admin Dose 100 MG; Start 05/09/16 at 15:00 Heparin Sodium (Porcine) 5000 unit 5,000 unit Q12 SC Last administered on 08:40; Admin Dose 5,000 UNIT; Start 05/09/16 at 21:00 Vancomycin HCl/ Sodium Chloride (Vancocin/NS) 250 ml @ 83.333 mls/ hr Q8H IVPB Last administered on 05/10/16 08:32; Admin Dose 83.333 MLS/HR; Start 05/10/16 at 00:00 JEB VAZQUEZ MD May 10, 2016 12:02
--- NOTE | 2016-05-10 16:03 | PN ---
DATE: 05/10/2016 SUBJECTIVE: Pain is slightly better. Has had several bowel movements. No nausea, no vomiting, tolerating a diet. She got out of bed to urinate to the bathroom. Shortness of the breath still exists. OBJECTIVE: VITAL SIGNS: Temperature is 98.3, pulse 95, respirations 18, blood pressure 104 /53, saturation 97% with 3 liters of oxygen nasal cannula. LABORATORY: Sugar is 101 to 126. Hematology: WBC is coming down gradually, is 15,700 today, with 67% segmented. Hemoglobin is 8.5, hematocrit 28. Abdomen is soft, bowel sounds present. Legs, no calf tenderness. Homans sign is negative. Respiratory, today maximal tidal volume is increased to 800 mL (Dr. Lujan, putty tinter maker, is following the patient for this matter). ASSESSMENT: This is a 35-year-old female status post laparoscopic cholecystectomy, with morbid obesity. She apparently bled post-operation. Hemoglobin dropped and she required a 2-unit blood transfusion. The patient has been short of breath. Appears to have moderate atelectasis, and the right hemidiaphragm is elevated. Gradually is getting better. WBC increased to 25, 000 before and now is down to 15,000. _. Fuse Cutter and infectious disease are on the case. Urine function is adequate, and BUN and creatinine are normal. PLAN: Continue the current care. Encourage deep breathing and using incentive spirometry. The patient has been started on heparin prophylactic subcutaneous by Dr. Lujan. The patient has been started on iron pills, 1 tablet b.i.d. p.o. Gradually is mobile, ambulating. The case was discussed with Dr. Dixon today and he agrees with the plan of treatment. Dictated By: BRADLY UGALDE MD PS/ARGELIA Conf#: [id number] DID#: [id number]
--- NOTE | 2016-05-10 16:09 | PN ---
DATE: 05/10/2016 PULMONARY FOLLOWUP NOTE SUBJECTIVE: The patient remains stable. She had 2 bowel movements this morning and is beginning to ambulate out of bed. She still has dyspnea on exertion. PHYSICAL EXAMINATION: VITAL SIGNS: Temperature 98, pulse 95, blood pressure 104/51, O2 saturation 96% on 3 liters. NECK: Supple. No JVD or lymphadenopathy. CARDIAC EXAM: S1, S2. No added sounds or murmurs. CHEST: Diminished air entry bilaterally. ABDOMEN: Soft, nontender. No guarding or rebound. EXTREMITIES: No cyanosis, clubbing, edema. NEUROLOGIC: Grossly intact. No focal deficits. IMPRESSION: 1. Status post abdominal surgery. 2. Postop hypoxemia secondary to alveolar hypoventilation. 3. Morbid obesity. PLAN: 1. Continue to encourage out of bed. 2. Incentive spirometry. 3. DVT and GI prophylaxis. Dictated By: NADYA BROWNLEE/ARGELIA Conf#: [id number] DID#: [id number]
[2016-05-10] MEDS: PANTOPRAZOLE (EC) 40 MG TAB PO SCH (17:53)
[2016-05-10] MEDS: ALPRAZOLAM 0.5 MG TAB PO PRN (17:56)
[2016-05-10 20:00] VITALS: BP 110/51; PULSE 92; RESP 20
--- NOTE | 2016-05-10 20:03 | CONS ---
Date/Time of Note Date/Time of Note DATE: 05/10/16 TIME: 19:57 Assessment/Plan Assessment/Plan Chief Complaint/Hosp Course SUBJECTIVE: No acute events. The patient is alert, feels better, looks comfortable. No fevers. ANTIMICROBIALS: The patient is on imipenem, Diflucan and Vanco PHYSICAL EXAMINATION: GENERAL: This is a morbidly obese, middle-aged woman who is alert, in no distress. HEENT: Head atraumatic, normocephalic. Sclerae anicteric. Buccal mucosa pink. NECK: Obese. CHEST: Rise symmetrical. Breath sounds diminished to bases. HEART: S1, S2. ABDOMEN: Soft. Bowel tones present. EXTREMITIES: Without cyanosis. ASSESSMENT: 1. Systemic inflammatory response syndrome with persistent leukocytosis==> improving. 2. History of laparoscopic cholecystectomy secondary to symptomatic cholelithiasis. 3. Pneumonia. 4. Obesity. 5. Anemia. 6. Fluid in the peritoneum per CT of the abdomen, likely blood. 7. C albicans UTI PLAN: Continues to improve. WBC slowly tracing down, continue abx, surgical/ pulmonary rec-s DW staff/pt Problems: Consultation Date/Type/Reason Admit Date/Time Apr 29, 2016 at 10:27 Type of Consultation: ID Exam/Review of Systems Vital Signs Vitals Vital Signs Date Time Temp Pulse Resp B/P Pulse Ox O2 Delivery O2 Flow Rate FiO2 05/10/16 08:00 Nasal Cannula 3.0 05/10/16 07:36 98.3 95 18 104/51 97 Intake and Output 05/09/16 05/09/16 05/10/16 15:00 23:00 07:00 Intake Total 570 ml 1470 ml 1190 ml Balance 570 ml 1470 ml 1190 ml Results Result Diagram: 05/10/16 0558 05/07/16 0535 Results 24 hrs Laboratory Tests Test 05/09/16 20:40 05/10/16 05:58 05/10/16 07:48 05/10/16 11:53 Bedside Glucose 130 120 101 Basophils # 0.1 Basophils % 0.3 Eosinophils # 0.3 Eosinophils % 1.6 Hematocrit 28.0 L Hemoglobin 8.5 L Lymphocytes # 3.3 H Lymphocytes % 21.3 Mean Corpuscular Hemoglobin 26.9 L Mean Corpuscular Hemoglobin Concent 30.4 L Mean Corpuscular Volume 88.6 Mean Platelet Volume 9.2 # Monocytes # 1.1 H Monocytes % 6.9 Neutrophils # 10.6 H Neutrophils % 67.7 Nucleated Red Blood Cells # 0.1 H Nucleated Red Blood Cells % 0.4 H Platelet Count 509 H Red Blood Count 3.16 L Red Cell Distribution Width 16.5 H White Blood Count 15.7 H Test 05/10/16 16:47 Bedside Glucose 102 Medications Medications Current Medications Ondansetron HCl (Zofran Inj) 4 mg Q6H PRN IV NAUSEA AND/OR VOMITING Last administered on 05/06/16 16:48; Admin Dose 4 MG; Start 04/28/16 at 11:00 Acetaminophen/ Codeine Phosphate 1 tab 1 tab Q6H PRN PO PAIN Last administered on 05/03/16 13:53; Admin Dose 1 TAB; Start 04/28/16 at 11:00 Acetaminophen (Ofirmev 1000mg/ 100ml Iv) 100 ml @ 400 mls/hr Q6H PRN IVPB PAIN Last administered on 04/28/16 18:17; Admin Dose 400 MLS/HR; Start at 11:00 Sertraline HCl (Zoloft) 100 mg DAILY PO Last administered on 05/10/16 08:36; Admin Dose 100 MG; Start 04/29/16 at 09:00 Miscellaneous Information 1 ea NOTE XX ; Start 04/28/16 at 17:30 Glucose (Glutose) 15 gm Q15M PRN PO DECREASED GLUCOSE; Start 04/28/16 at 17:30 Glucose (Glutose) 22.5 gm Q15M PRN PO DECREASED GLUCOSE; Start 04/28/16 at 17: 30 Dextrose (D50w Syringe) 25 ml Q15M PRN IV DECREASED GLUCOSE; Start 04/28/16 at 17:30 Dextrose (D50w Syringe) 50 ml Q15M PRN IV DECREASED GLUCOSE; Start 04/28/16 at 17:30 Glucagon (Glucagen) 1 mg Q15M PRN IM DECREASED GLUCOSE; Start 04/28/16 at 17:30 Glucose (Glutose) 15 gm Q15M PRN BUCCAL DECREASED GLUCOSE; Start 04/28/16 at 17 :30 Alprazolam (Xanax) 1 mg Q12H PRN PO ANXIETY Last administered on 05/10/16 17:56 ; Admin Dose 1 MG; Start 05/03/16 at 05:56 Ferrous Sulfate 325 mg 325 mg BID PO Last administered on 05/10/16 08:36; Admin Dose 325 MG; Start 05/04/16 at 21:00 Imipenem/ Cilastatin Sodium (Primaxin 500 Mg/ 100 ml (Pmx)) 100 ml @ 100 mls/ hr Q8 IVPB Last administered on 05/10/16 13:59; Admin Dose 100 MLS/HR; Start at 16:00 Magnesium Hydroxide (Milk Of Mag) 30 ml QHS PO Last administered on 05/09/16 21 :56; Admin Dose 30 ML; Start 05/06/16 at 21:00 Hydromorphone HCl (Dilaudid) 0.8 mg Q6H PRN IV PAIN Last administered on 14:30; Admin Dose 0.8 MG; Start 05/08/16 at 12:30 Fluconazole (Diflucan) 100 mg DAILY PO Last administered on 05/10/16 08:36; Admin Dose 100 MG; Start 05/09/16 at 15:00 Heparin Sodium (Porcine) 5000 unit 5,000 unit Q12 SC Last administered on 08:40; Admin Dose 5,000 UNIT; Start 05/09/16 at 21:00 Vancomycin HCl/ Sodium Chloride (Vancocin/NS) 250 ml @ 83.333 mls/ hr Q8H IVPB Last administered on 05/10/16 15:04; Admin Dose 83.333 MLS/HR; Start 05/10/16 at 00:00 Miscellaneous Information (*Rx Drug Level Order Reminder*) VANCOMYCIN TROUGH 05/10 AT 2300 ONCE ONCE XX ; Start 05/10/16 at 23:00; Stop 05/10/16 at 23:01 Pantoprazole (Protonix Tab) 40 mg BID@06,18 PO Last administered on 05/10/16 17 :53; Admin Dose 40 MG; Start 05/10/16 at 18:00 ABNER BALL NP May 10, 2016 20:03
[2016-05-10] MEDS: MAGNESIUM HYDROXIDE 30ML CUP PO SCH (20:30)
[2016-05-10 20:39] VITALS: BP 110/51; RESP 20
[2016-05-11] MEDS: VANCOMYCIN 1.5 GM in SOD CHLORIDE 0.9% 250 ML IVPB SCH ×3 (01:48→15:43)
[2016-05-11] MEDS: HYDROmorphONE 1 MG/ML SYG IV PRN ×4 (02:17→18:42)
[2016-05-11] MEDS: IMIPENEM-CILAST 500MG IV (PMX) 100 ML IVPB SCH ×2 (05:26→14:12)
[2016-05-11] MEDS: PANTOPRAZOLE (EC) 40 MG TAB PO SCH ×2 (05:27→18:20)
[2016-05-11 07:11] LABS: CREATININE 0.45 mg/dl (0.44-1.00)
[2016-05-11] MEDS: INSULIN ASPART [NOVOLOG] 3 ML PEN SC SCH ×4 (08:00→20:30)
[2016-05-11 08:03] VITALS: BP 120/64; RESP 18
[2016-05-11] MEDS: SERTRALINE 100 MG TAB PO SCH (08:52)
[2016-05-11] MEDS: FERROUS SULFATE (EC) 325 MG TAB PO SCH ×2 (08:52→20:30)
[2016-05-11] MEDS: FLUCONAZOLE 100 MG TAB PO SCH (08:52)
[2016-05-11] MEDS: HEPARIN 5,000 UNIT/0.5 ML SYG SC SCH ×2 (08:56→20:31)
[2016-05-11] MEDS: metFORMIN 500 MG TAB PO SCH ×2 (09:00→18:20)
[2016-05-11] MEDS: ALPRAZOLAM 0.5 MG TAB PO PRN ×2 (10:13→21:58)
[2016-05-11] MEDS ORDERED: MINERAL OIL 30ML CUP PO PRN (13:30)
--- NOTE | 2016-05-11 16:59 | PN ---
DATE: 05/11/2016 SUBJECTIVE: Complaining of some sharp pain in the right upper quadrant area, occasionally. Has not had any bowel movement, but has passed gas today. Is tolerating diet, has been out of bed only to urinate. encourage to get out of bed and walk. OBJECTIVE: Vital signs 98.6, 89, 18, 120/64, saturation 98% on 2 liters nasal cannula. Lips are not cyanotic anymore. LABORATORY DATA: No lab was done today. ABDOMEN: Soft. EXTREMITIES: Legs, no calf tenderness. Sequential compression devices around it. Incentive spirometry, the tidal volume is up to 800 mL today. ASSESSMENT AND PLAN: A 35-year-old female, morbidly obese, who underwent laparoscopic cholecystectomy. Postop, apparently she had some intraabdominal bleeding, became anemic and severe abdominal pain, required 2 units of blood transfusion. Now patient is still on iron tablets 1 tablet b.i.d. For a while she had constipation, but eventually relieved. She is able to get out of bed to go to the bathroom and urinate. States she is not taking very deep breaths, neon sign maker on the case, infectious disease. Continue antibiotics and leukocytosis, this was 25,000 once, this traced down to 15,000 by yesterday. PLAN: Continue current care. Hopefully, we can get her out of bed and walk around and if she tolerates, she may be discharged next week. Dictated By: BRADLY CORTES/ARGELIA Conf#: [id number] DID#: [id number] MTDD
--- NOTE | 2016-05-11 17:12 | PN ---
DATE: SUBJECTIVE: The patient continues to improve. States breathing is better today. She is slowly beg inning to ambulate. PHYSICAL EXAMINATION VITAL SIGNS: Temperature 98, pulse is 89, blood pressure 120/64, O2 saturation 96% on 2 liters. NECK: Supple. No JVD or lymphadenopathy. CARDIAC: S1, S2, no added sounds or murmurs. CHEST: Diminished air entry bilaterally. ABDOMEN: Obese, soft, nontender, no guarding, no rebound. EXTREMITIES: No cyanosis, clubbing, edema. NEUROLOGIC: Grossly intact. No focal deficits. LABORATORY DATA: No labs today. IMPRESSION AND PLAN: A 35-year-old lady post laparoscopic cholecystectomy, morbid obesity; course c omplicated by anemia and postoperative atelectasis with alveolar hypoventilation and subsequent hypo xemia. The patient will require: 1. Continued incentive spirometry. 2. Encourage out of bed. 3. Ambulate today. 4. Anticipate discharge tomorrow. No further pulmonary recommendations at this point. Dictated By: NADYA BROWNLEE/ARGELIA Conf#: [id number] DID#: [id number]
--- NOTE | 2016-05-11 17:20 | CONS ---
Date/Time of Note Date/Time of Note DATE: 05/11/16 TIME: 17:19 Assessment/Plan Assessment/Plan Additional Assessment/Plan Additional Assessment/Plan Additional Assessment/Plan Impression: 1. Symptomatic cholelithiasis, status post laparoscopic cholecystectomy. 2. possible bile leak ,negative 3. RUQ abdominal pain 4. iron deficiency anemia 5 obesity 6 leucocytosis,persistent,trending down 7.fluid in the peritoneum is blood Recommendation: 1. f/u MRCP to r/o bile leak 2. if bile leak on MRCP, will need ERCP with stent 3. continue iron replacement 4. 5.[place] scan for bile leak,negative 6.stool for C.Difficile toxins,negative Consultation Date/Type/Reason Admit Date/Time Apr 29, 2016 at 10:27 Type of Consultation: ID [id number] HR Interval Summary Constitutional: improved Exam/Review of Systems Vital Signs Vitals Vital Signs Date Time Temp Pulse Resp B/P Pulse Ox O2 Delivery O2 Flow Rate FiO2 05/11/16 08:03 98.6 89 18 120/64 98 05/11/16 08:00 Nasal Cannula 2.0 Intake and Output 05/10/16 05/10/16 05/11/16 15:00 23:00 07:00 Intake Total 1420 ml 950 ml Output Total 800 ml Balance 1420 ml 150 ml Exam Constitutional: alert, oriented, well developed Psych: nl mood/affect, no complaints Head: atraumatic, normocephalic Eyes: EOMI, PERRL, nl conjunctiva, nl lids, nl sclera ENMT: nl external ears & nose, nl lips & teeth, nl nasal mucosa & septum Neck: non-tender, supple Respiratory: clear to auscultation, normal air movement Cardiovascular: nl pulses, regular rate and rhythm Gastrointestinal: nl liver, spleen, non-tender, soft Musculoskeletal: nl extremities to inspection, nl gait and stance Extremities: normal pulses Neurological: [employer] II-XII intact, nl mental status, nl speech, nl strength Skin: nl turgor, No rash or lesions Lymph: nl lymph nodes Results Result Diagram: 05/10/16 0558 05/11/16 0455 Results 24 hrs Laboratory Tests Test 05/10/16 20:36 05/10/16 23:23 05/11/16 04:55 05/11/16 08:45 Bedside Glucose 117 107 Vancomycin Level Trough 12.4 Blood Urea Nitrogen 3 L Creatinine 0.45 Test 05/11/16 13:33 Bedside Glucose 107 Medications Medications Current Medications Ondansetron HCl (Zofran Inj) 4 mg Q6H PRN IV NAUSEA AND/OR VOMITING Last administered on 05/06/16 16:48; Admin Dose 4 MG; Start 04/28/16 at 11:00 Acetaminophen/ Codeine Phosphate 1 tab 1 tab Q6H PRN PO PAIN Last administered on 05/03/16 13:53; Admin Dose 1 TAB; Start 04/28/16 at 11:00 Acetaminophen (Ofirmev 1000mg/ 100ml Iv) 100 ml @ 400 mls/hr Q6H PRN IVPB PAIN Last administered on 04/28/16 18:17; Admin Dose 400 MLS/HR; Start at 11:00 Sertraline HCl (Zoloft) 100 mg DAILY PO Last administered on 05/11/16 08:52; Admin Dose 100 MG; Start 04/29/16 at 09:00 Miscellaneous Information 1 ea NOTE XX ; Start 04/28/16 at 17:30 Glucose (Glutose) 15 gm Q15M PRN PO DECREASED GLUCOSE; Start 04/28/16 at 17:30 Glucose (Glutose) 22.5 gm Q15M PRN PO DECREASED GLUCOSE; Start 04/28/16 at 17: 30 Dextrose (D50w Syringe) 25 ml Q15M PRN IV DECREASED GLUCOSE; Start 04/28/16 at 17:30 Dextrose (D50w Syringe) 50 ml Q15M PRN IV DECREASED GLUCOSE; Start 04/28/16 at 17:30 Glucagon (Glucagen) 1 mg Q15M PRN IM DECREASED GLUCOSE; Start 04/28/16 at 17:30 Glucose (Glutose) 15 gm Q15M PRN BUCCAL DECREASED GLUCOSE; Start 04/28/16 at 17 :30 Alprazolam 1 mg 1 mg Q12H PRN PO ANXIETY Last administered on 05/11/16 10:13; Admin Dose 1 MG; Start 05/03/16 at 05:56 Imipenem/ Cilastatin Sodium (Primaxin 500 Mg/ 100 ml (Pmx)) 100 ml @ 100 mls/ hr Q8 IVPB Last administered on 05/11/16 14:12; Admin Dose 100 MLS/HR; Start at 16:00 Magnesium Hydroxide (Milk Of Mag) 30 ml QHS PO Last administered on 05/10/16 20 :30; Admin Dose 30 ML; Start 05/06/16 at 21:00 Fluconazole (Diflucan) 100 mg DAILY PO Last administered on 05/11/16 08:52; Admin Dose 100 MG; Start 05/09/16 at 15:00 Heparin Sodium (Porcine) 5000 unit 5,000 unit Q12 SC Last administered on 08:56; Admin Dose 5,000 UNIT; Start 05/09/16 at 21:00 Vancomycin HCl/ Sodium Chloride (Vancocin/NS) 250 ml @ 83.333 mls/ hr Q8H IVPB Last administered on 05/11/16 15:43; Admin Dose 83.333 MLS/HR; Start 05/10/16 at 00:00 Pantoprazole (Protonix Tab) 40 mg BID@06,18 PO Last administered on 05/11/16 05 :27; Admin Dose 40 MG; Start 05/10/16 at 18:00 Ferrous Sulfate (Ferrous Sulfate (Ec)) 325 mg TID PO ; Start 05/11/16 at 21:00 Mineral Oil (Mineral Oil) 30 ml TID PRN PO CONSTIPATION; Start 05/11/16 at 13:30 Hydromorphone HCl (Dilaudid) 0.6 mg Q5H PRN IV PAIN Last administered on 14:12; Admin Dose 0.6 MG; Start 05/11/16 at 14:03 JESUS AGUILAR MD May 11, 2016 17:20
[2016-05-11] MEDS ORDERED: HYDROmorphONE 1 MG/ML SYG IV PRN (17:30)
--- NOTE | 2016-05-11 18:12 | CONS ---
Date/Time of Note Date/Time of Note DATE: 05/11/16 TIME: 18:10 Assessment/Plan Assessment/Plan Chief Complaint/Hosp Course SUBJECTIVE: No acute events. The patient is alert, comfortable on nc, no fevers ANTIMICROBIALS: The patient is on imipenem, Diflucan and Vanco PHYSICAL EXAMINATION: GENERAL: This is a morbidly obese, middle-aged woman who is alert, in no distress. HEENT: Head atraumatic, normocephalic. Sclerae anicteric. Buccal mucosa pink. NECK: Obese. CHEST: Rise symmetrical. Breath sounds diminished to bases. HEART: S1, S2. ABDOMEN: Soft. Bowel tones present. EXTREMITIES: Without cyanosis. ASSESSMENT: 1. Systemic inflammatory response syndrome with persistent leukocytosis==> improving. 2. History of laparoscopic cholecystectomy secondary to symptomatic cholelithiasis. 3. Pneumonia. 4. Obesity. 5. Anemia. 6. Fluid in the peritoneum per CT of the abdomen, likely blood. 7. C albicans UTI PLAN: Continues to improve, will change abx to oral Levaquin, continue Diflucan , encourage IS/ambulation, f/u surgical/pulmonary rec-s [facility] staff/pt Problems: Consultation Date/Type/Reason Admit Date/Time Apr 29, 2016 at 10:27 Type of Consultation: ID 24 HR Interval Summary Constitutional: no complaints Exam/Review of Systems Vital Signs Vitals Vital Signs Date Time Temp Pulse Resp B/P Pulse Ox O2 Delivery O2 Flow Rate FiO2 05/11/16 08:03 98.6 89 18 120/64 98 05/11/16 08:00 Nasal Cannula 2.0 Intake and Output 05/10/16 05/10/16 05/11/16 15:00 23:00 07:00 Intake Total 1420 ml 950 ml Output Total 800 ml Balance 1420 ml 150 ml Results Result Diagram: 05/10/16 0558 05/11/16 0455 Results 24 hrs Laboratory Tests Test 05/10/16 20:36 05/10/16 23:23 05/11/16 04:55 05/11/16 08:45 Bedside Glucose 117 107 Vancomycin Level Trough 12.4 Blood Urea Nitrogen 3 L Creatinine 0.45 Test 05/11/16 13:33 Bedside Glucose 107 Medications Medications Current Medications Ondansetron HCl (Zofran Inj) 4 mg Q6H PRN IV NAUSEA AND/OR VOMITING Last administered on 05/06/16 16:48; Admin Dose 4 MG; Start 04/28/16 at 11:00 Acetaminophen/ Codeine Phosphate 1 tab 1 tab Q6H PRN PO PAIN Last administered on 05/03/16 13:53; Admin Dose 1 TAB; Start 04/28/16 at 11:00 Acetaminophen (Ofirmev 1000mg/ 100ml Iv) 100 ml @ 400 mls/hr Q6H PRN IVPB PAIN Last administered on 04/28/16 18:17; Admin Dose 400 MLS/HR; Start at 11:00 Sertraline HCl (Zoloft) 100 mg DAILY PO Last administered on 05/11/16 08:52; Admin Dose 100 MG; Start 04/29/16 at 09:00 Miscellaneous Information 1 ea NOTE XX ; Start 04/28/16 at 17:30 Glucose (Glutose) 15 gm Q15M PRN PO DECREASED GLUCOSE; Start 04/28/16 at 17:30 Glucose (Glutose) 22.5 gm Q15M PRN PO DECREASED GLUCOSE; Start 04/28/16 at 17: 30 Dextrose (D50w Syringe) 25 ml Q15M PRN IV DECREASED GLUCOSE; Start 04/28/16 at 17:30 Dextrose (D50w Syringe) 50 ml Q15M PRN IV DECREASED GLUCOSE; Start 04/28/16 at 17:30 Glucagon (Glucagen) 1 mg Q15M PRN IM DECREASED GLUCOSE; Start 04/28/16 at 17:30 Glucose (Glutose) 15 gm Q15M PRN BUCCAL DECREASED GLUCOSE; Start 04/28/16 at 17 :30 Alprazolam 1 mg 1 mg Q12H PRN PO ANXIETY Last administered on 05/11/16 10:13; Admin Dose 1 MG; Start 05/03/16 at 05:56 Imipenem/ Cilastatin Sodium (Primaxin 500 Mg/ 100 ml (Pmx)) 100 ml @ 100 mls/ hr Q8 IVPB Last administered on 05/11/16 14:12; Admin Dose 100 MLS/HR; Start at 16:00 Magnesium Hydroxide (Milk Of Mag) 30 ml QHS PO Last administered on 05/10/16 20 :30; Admin Dose 30 ML; Start 05/06/16 at 21:00 Fluconazole (Diflucan) 100 mg DAILY PO Last administered on 05/11/16 08:52; Admin Dose 100 MG; Start 05/09/16 at 15:00 Heparin Sodium (Porcine) 5000 unit 5,000 unit Q12 SC Last administered on 08:56; Admin Dose 5,000 UNIT; Start 05/09/16 at 21:00 Vancomycin HCl/ Sodium Chloride (Vancocin/NS) 250 ml @ 83.333 mls/ hr Q8H IVPB Last administered on 05/11/16 15:43; Admin Dose 83.333 MLS/HR; Start 05/10/16 at 00:00 Pantoprazole (Protonix Tab) 40 mg BID@06,18 PO Last administered on 05/11/16 05 :27; Admin Dose 40 MG; Start 05/10/16 at 18:00 Ferrous Sulfate (Ferrous Sulfate (Ec)) 325 mg TID PO ; Start 05/11/16 at 21:00 Mineral Oil (Mineral Oil) 30 ml TID PRN PO CONSTIPATION; Start 05/11/16 at 13:30 Hydromorphone HCl (Dilaudid) 0.6 mg Q5H PRN IV PAIN Last administered on 14:12; Admin Dose 0.6 MG; Start 05/11/16 at 14:03 ABNER BALL NP May 11, 2016 18:12
[2016-05-11] MEDS: MAGNESIUM HYDROXIDE 30ML CUP PO SCH (20:30)
[2016-05-11 20:37] VITALS: BP 109/51; RESP 18
--- NOTE | 2016-05-11 22:42 | PN ---
Date/Time of Note Date/Time of Note DATE: 05/11/16 TIME: 22:40 Assessment/Plan VTE Prophylaxis VTE Prophylaxis Intervention: other Lines/Catheters IV [facility] Urinary Cath still in place: No Assessment/Plan Chief Complaint/Hosp Course 1. Symptomatic cholelithiasis, status post laparoscopic cholecystectomy. . 2. Noninsulin-dependent diabetes mellitus. 3. Obesity. 4. Anxiety and depression. 5 obesity 6 leucocytosis 7 post op anemia 8 HIDA NEG 9 lung atelectasis 10 uti plan antibiotic ck labs per surgery dr richard Casarez ck wbc Problems: Subjective 24 Hr Interval Summary Cardiovascular: no complaints Gastrointestinal: no complaints Genitourinary: no complaints Exam/Review of Systems Vital Signs Vitals Vital Signs Date Time Temp Pulse Resp B/P Pulse Ox O2 Delivery O2 Flow Rate FiO2 05/11/16 20:37 99.1 98 18 109/51 96 05/11/16 08:00 Nasal Cannula 2.0 Intake and Output 05/10/16 05/10/16 05/11/16 15:00 23:00 07:00 Intake Total 1420 ml 950 ml Output Total 800 ml Balance 1420 ml 150 ml Exam Respiratory: clear to auscultation Cardiovascular: regular rate and rhythm Gastrointestinal: soft Musculoskeletal: nl extremities to inspection Extremities: normal pulses Results Result Diagram: 05/10/16 0558 05/11/16 0455 Results 24 hrs Laboratory Tests Test 05/10/16 23:23 05/11/16 04:55 05/11/16 08:45 05/11/16 13:33 Vancomycin Level Trough 12.4 Blood Urea Nitrogen 3 L Creatinine 0.45 Bedside Glucose 107 107 Test 05/11/16 18:18 05/11/16 20:29 Bedside Glucose 114 115 Medications Medications Current Medications Ondansetron HCl (Zofran Inj) 4 mg Q6H PRN IV NAUSEA AND/OR VOMITING Last administered on 05/06/16 16:48; Admin Dose 4 MG; Start 04/28/16 at 11:00 Acetaminophen/ Codeine Phosphate 1 tab 1 tab Q6H PRN PO PAIN Last administered on 05/03/16 13:53; Admin Dose 1 TAB; Start 04/28/16 at 11:00 Acetaminophen (Ofirmev 1000mg/ 100ml Iv) 100 ml @ 400 mls/hr Q6H PRN IVPB PAIN Last administered on 04/28/16 18:17; Admin Dose 400 MLS/HR; Start at 11:00 Sertraline HCl (Zoloft) 100 mg DAILY PO Last administered on 05/11/16 08:52; Admin Dose 100 MG; Start 04/29/16 at 09:00 Miscellaneous Information 1 ea NOTE XX ; Start 04/28/16 at 17:30 Glucose (Glutose) 15 gm Q15M PRN PO DECREASED GLUCOSE; Start 04/28/16 at 17:30 Glucose (Glutose) 22.5 gm Q15M PRN PO DECREASED GLUCOSE; Start 04/28/16 at 17: 30 Dextrose (D50w Syringe) 25 ml Q15M PRN IV DECREASED GLUCOSE; Start 04/28/16 at 17:30 Dextrose (D50w Syringe) 50 ml Q15M PRN IV DECREASED GLUCOSE; Start 04/28/16 at 17:30 Glucagon (Glucagen) 1 mg Q15M PRN IM DECREASED GLUCOSE; Start 04/28/16 at 17:30 Glucose (Glutose) 15 gm Q15M PRN BUCCAL DECREASED GLUCOSE; Start 04/28/16 at 17 :30 Alprazolam (Xanax) 1 mg Q12H PRN PO ANXIETY Last administered on 05/11/16 21:58 ; Admin Dose 1 MG; Start 05/03/16 at 05:56 Magnesium Hydroxide (Milk Of Mag) 30 ml QHS PO Last administered on 05/11/16 20 :30; Admin Dose 30 ML; Start 05/06/16 at 21:00 Fluconazole (Diflucan) 100 mg DAILY PO Last administered on 05/11/16 08:52; Admin Dose 100 MG; Start 05/09/16 at 15:00 Heparin Sodium (Porcine) (Heparin (5000 Units/0.5 ml)) 5,000 unit Q12 SC Last administered on 05/11/16 20:31; Admin Dose 5,000 UNIT; Start 05/09/16 at 21:00 Pantoprazole (Protonix Tab) 40 mg BID@,18 PO Last administered on 05/11/16 18 :20; Admin Dose 40 MG; Start 05/10/16 at 18:00 Ferrous Sulfate (Ferrous Sulfate (Ec)) 325 mg TID PO Last administered on 20:30; Admin Dose 325 MG; Start 05/11/16 at 21:00 Mineral Oil (Mineral Oil) 30 ml TID PRN PO CONSTIPATION; Start 05/11/16 at 13:30 Hydromorphone HCl (Dilaudid) 0.6 mg Q5H PRN IV PAIN Last administered on 18:42; Admin Dose 0.6 MG; Start 05/11/16 at 14:03 Levofloxacin (Levaquin) 500 mg DAILY@06 PO ; Start 05/12/16 at 06:00 JEB VAZQUEZ MD May 11, 2016 22:42
[2016-05-12] MEDS: HYDROmorphONE 1 MG/ML SYG IV PRN ×4 (00:06→16:45)
[2016-05-12] MEDS: PANTOPRAZOLE (EC) 40 MG TAB PO SCH ×2 (05:23→17:52)
[2016-05-12] MEDS ORDERED: LEVOFLOXACIN 500 MG TAB PO SCH (06:00)
[2016-05-12 06:43] LABS: BASOPHILS % 0.4 % (0.0-2.0); EOSINOPHILS # 0.2 10^3/ul (0.0-0.5); HEMATOCRIT 27.3 % (37.0-47.0); HEMOGLOBIN 8.9 g/dl (12.0-16.0); LYMPHOCYTES # 2.9 10^3/ul (0.8-2.9); LYMPHOCYTES % 24.1 % (15.0-51.0); MEAN CORPUSCULAR HEMOGLOBIN 26.8 pg (29.0-33.0); MEAN CORPUSCULAR HGB CONC 32.6 g/dl (32.0-37.0); MEAN CORPUSCULAR VOLUME 82.1 fl (82.0-101.0); MEAN PLATELET VOLUME 6.9 fl (7.4-10.4); MONOCYTE # 0.8 10^3/ul (0.3-0.9); MONOCYTES % 6.7 % (0.0-11.0); NEUTROPHIL # 8.1 10^3/ul (1.6-7.5); NEUTROPHILS % 66.8 % (39.0-77.0); PLATELET COUNT 546 10^3/UL (140-440); RED BLOOD COUNT 3.33 10^6/ul (4.20-5.40); RED CELL DISTRIBUTION WIDTH 16.7 % (11.5-14.5); RETICULOCYTE COUNT % 3.6 % (0.5-1.5); UNCORRECTED WBC 12.1 10^3/ul (4.8-10.8); WHITE BLOOD COUNT 12.1 10^3/ul (4.8-10.8)
[2016-05-12 06:49] LABS: CONDITION 1; LH ANALYZER COMMENTS 1
[2016-05-12] MEDS: INSULIN ASPART [NOVOLOG] 3 ML PEN SC SCH ×3 (08:00→17:51)
[2016-05-12 08:22] VITALS: BP 111/56; RESP 18
[2016-05-12] MEDS: metFORMIN 500 MG TAB PO SCH ×2 (08:28→17:52)
[2016-05-12] MEDS: FLUCONAZOLE 100 MG TAB PO SCH (08:29)
[2016-05-12] MEDS: HEPARIN 5,000 UNIT/0.5 ML SYG SC SCH (08:29)
[2016-05-12] MEDS: FERROUS SULFATE (EC) 325 MG TAB PO SCH ×2 (08:30→13:58)
[2016-05-12] MEDS: SERTRALINE 100 MG TAB PO SCH (08:30)
[2016-05-12] MEDS ORDERED: KETOROLAC 30 MG INJ IV PRN (10:00)
--- NOTE | 2016-05-12 10:57 | PN ---
DATE: SUBJECTIVE: Feels a little bit better today. Has been out of bed and walked around the room a few times, has had a bowel movement, but still has a lot of pain in the left upper lateral quadrant. OBJECTIVE: VITAL SIGNS: Temperature 99.1, heart rate 83, respirations 18, blood pressure 111/56, saturation 98 % on room air. ABDOMEN: Abdomen is soft, bowel sounds normal. There is some tenderness in the upper part of the r ight flank area. LABORATORIES: WBC decreasing gradually. Today it is 12,100 with 66% neutrophils. Hemoglobin is 8. 9, hematocrit 27.3, platelet count is 3.6. I cannot figure out the cause of this. It could be due to bleeding at the site of the trocar or irr itation of the peritoneum in that area. Incentive spirometry: The patient is not doing a good job on that. ASSESSMENT: Morbidly obese 35-year-old female status post laparoscopic cholecystectomy complicated by anemia due to intraperitoneal bleeding and multiple segmental atelectasis and shortness of breath . Now, the patient is improving. PLAN: 1. The infectious disease has suggested to change the IV antibiotic to p.o. 2. She should continue incentive spirometry, encouraged the patient. 3. Ambulate as much as possible in preparation for discharge hopefully this week. Dictated By: BRADLY CORTES/ARGELIA Conf#: [id number] DID#: [id number]
--- NOTE | 2016-05-12 11:35 | CONS ---
Date/Time of Note Date/Time of Note DATE: 05/12/16 TIME: 11:34 Assessment/Plan Assessment/Plan Chief Complaint/Hosp Course SUBJECTIVE: No acute events. The patient is alert, sitting up in a chair, no fevers ANTIMICROBIALS: The patient is on Diflucan and Levaquin PHYSICAL EXAMINATION: GENERAL: This is a morbidly obese, middle-aged woman who is alert, in no distress. HEENT: Head atraumatic, normocephalic. Sclerae anicteric. Buccal mucosa pink. NECK: Obese. CHEST: Rise symmetrical. Breath sounds diminished to bases. HEART: S1, S2. ABDOMEN: Soft. Bowel tones present. EXTREMITIES: Without cyanosis. ASSESSMENT: 1. Systemic inflammatory response syndrome with persistent leukocytosis==> improving. 2. History of laparoscopic cholecystectomy secondary to symptomatic cholelithiasis. 3. Pneumonia. 4. Obesity. 5. Anemia. 6. Fluid in the peritoneum per CT of the abdomen, likely blood. 7. C albicans UTI PLAN: Stable, continues to improve, continue abx, encourage IS/ambulation, f/ u surgical/pulmonary rec-s [facility] staff/pt Problems: Consultation Date/Type/Reason Admit Date/Time Apr 29, 2016 at 10:27 Type of Consultation: ID Exam/Review of Systems Vital Signs Vitals Vital Signs Date Time Temp Pulse Resp B/P Pulse Ox O2 Delivery O2 Flow Rate FiO2 05/12/16 08:22 99.1 83 18 111/56 98 05/11/16 20:25 Nasal Cannula 2.0 Intake and Output 05/11/16 05/11/16 05/12/16 15:00 23:00 07:00 Intake Total 1760 ml 520 ml Balance 1760 ml 520 ml Results Result Diagram: 05/12/16 0540 05/11/16 0455 Results 24 hrs Laboratory Tests Test 05/11/16 13:33 05/11/16 18:18 05/11/16 20:29 05/12/16 05:40 Bedside Glucose 107 114 115 Absolute Reticulocyte Count 0.120 H Basophils # 0.0 Basophils % 0.4 Blood Morphology Comment Eosinophils # 0.2 Eosinophils % 2.0 Hematocrit 27.3 L Hemoglobin 8.9 L Lymphocytes # 2.9 Lymphocytes % 24.1 Mean Corpuscular Hemoglobin 26.8 L Mean Corpuscular Hemoglobin Concent 32.6 Mean Corpuscular Volume 82.1 Mean Platelet Volume 6.9 #L Monocytes # 0.8 Monocytes % 6.7 Neutrophils # 8.1 H Neutrophils % 66.8 Nucleated Red Blood Cells # 0.0 Nucleated Red Blood Cells % 0.0 Percent Reticulocyte Count 3.6 H Platelet Count 546 H Red Blood Count 3.33 L Red Cell Distribution Width 16.7 H White Blood Count 12.1 #H Test 05/12/16 08:01 Bedside Glucose 99 Medications Medications Current Medications Ondansetron HCl (Zofran Inj) 4 mg Q6H PRN IV NAUSEA AND/OR VOMITING Last administered on 05/06/16 16:48; Admin Dose 4 MG; Start 04/28/16 at 11:00 Acetaminophen/ Codeine Phosphate 1 tab 1 tab Q6H PRN PO PAIN Last administered on 05/03/16 13:53; Admin Dose 1 TAB; Start 04/28/16 at 11:00 Acetaminophen (Ofirmev 1000mg/ 100ml Iv) 100 ml @ 400 mls/hr Q6H PRN IVPB PAIN Last administered on 04/28/16 18:17; Admin Dose 400 MLS/HR; Start at 11:00 Sertraline HCl (Zoloft) 100 mg DAILY PO Last administered on 05/12/16 08:30; Admin Dose 100 MG; Start 04/29/16 at 09:00 Miscellaneous Information 1 ea NOTE XX ; Start 04/28/16 at 17:30 Glucose (Glutose) 15 gm Q15M PRN PO DECREASED GLUCOSE; Start 04/28/16 at 17:30 Glucose (Glutose) 22.5 gm Q15M PRN PO DECREASED GLUCOSE; Start 04/28/16 at 17: 30 Dextrose (D50w Syringe) 25 ml Q15M PRN IV DECREASED GLUCOSE; Start 04/28/16 at 17:30 Dextrose (D50w Syringe) 50 ml Q15M PRN IV DECREASED GLUCOSE; Start 04/28/16 at 17:30 Glucagon (Glucagen) 1 mg Q15M PRN IM DECREASED GLUCOSE; Start 04/28/16 at 17:30 Glucose (Glutose) 15 gm Q15M PRN BUCCAL DECREASED GLUCOSE; Start 04/28/16 at 17 :30 Alprazolam (Xanax) 1 mg Q12H PRN PO ANXIETY Last administered on 05/11/16 21:58 ; Admin Dose 1 MG; Start 05/03/16 at 05:56 Magnesium Hydroxide (Milk Of Mag) 30 ml QHS PO Last administered on 05/11/16 20 :30; Admin Dose 30 ML; Start 05/06/16 at 21:00 Fluconazole (Diflucan) 100 mg DAILY PO Last administered on 05/12/16 08:29; Admin Dose 100 MG; Start 05/09/16 at 15:00 Heparin Sodium (Porcine) (Heparin (5000 Units/0.5 ml)) 5,000 unit Q12 SC Last administered on 05/12/16 08:29; Admin Dose 5,000 UNIT; Start 05/09/16 at 21:00 Pantoprazole (Protonix Tab) 40 mg BID@06,18 PO Last administered on 05/12/16 05 :23; Admin Dose 40 MG; Start 05/10/16 at 18:00 Ferrous Sulfate (Ferrous Sulfate (Ec)) 325 mg TID PO Last administered on 08:30; Admin Dose 325 MG; Start 05/11/16 at 21:00 Mineral Oil (Mineral Oil) 30 ml TID PRN PO CONSTIPATION; Start 05/11/16 at 13:30 Hydromorphone HCl (Dilaudid) 0.6 mg Q5H PRN IV PAIN Last administered on 09:57; Admin Dose 0.6 MG; Start 05/11/16 at 14:03 Levofloxacin (Levaquin) 500 mg DAILY@06 PO Last administered on 05/12/16 05:23 ; Admin Dose 500 MG; Start 05/12/16 at 06:00 Ketorolac Tromethamine (Toradol) 30 mg Q8 PRN IV PAIN; Start 05/12/16 at 10:00; Stop 05/13/16 at 19:00 ABNER BALL NP May 12, 2016 11:35
--- NOTE | 2016-05-12 12:35 | CONS ---
Date/Time of Note Date/Time of Note DATE: 05/12/16 TIME: 12:34 Consult Date/Type/Reason Admit Date/Time Apr 29, 2016 at 10:27 Initial Consult Date Type of Consultation: pulmonary Subjective Patient remained stable no new events Objective Vital Signs Date Time Temp Pulse Resp B/P Pulse Ox O2 Delivery O2 Flow Rate FiO2 05/12/16 08:22 99.1 83 18 111/56 98 05/12/16 08:00 Nasal Cannula 2.0 Intake and Output 05/11/16 05/11/16 05/12/16 15:00 23:00 07:00 Intake Total 1760 ml 520 ml Balance 1760 ml 520 ml Results/Medications Result Diagram: 05/12/16 0540 05/11/16 0455 Results 24 hrs Laboratory Tests Test 05/11/16 13:33 05/11/16 18:18 05/11/16 20:29 05/12/16 05:40 Bedside Glucose 107 114 115 Absolute Reticulocyte Count 0.120 H Basophils # 0.0 Basophils % 0.4 Blood Morphology Comment Eosinophils # 0.2 Eosinophils % 2.0 Hematocrit 27.3 L Hemoglobin 8.9 L Lymphocytes # 2.9 Lymphocytes % 24.1 Mean Corpuscular Hemoglobin 26.8 L Mean Corpuscular Hemoglobin Concent 32.6 Mean Corpuscular Volume 82.1 Mean Platelet Volume 6.9 #L Monocytes # 0.8 Monocytes % 6.7 Neutrophils # 8.1 H Neutrophils % 66.8 Nucleated Red Blood Cells # 0.0 Nucleated Red Blood Cells % 0.0 Percent Reticulocyte Count 3.6 H Platelet Count 546 H Red Blood Count 3.33 L Red Cell Distribution Width 16.7 H White Blood Count 12.1 #H Test 05/12/16 08:01 05/12/16 11:48 Bedside Glucose 99 107 Medications Current Medications Ondansetron HCl (Zofran Inj) 4 mg Q6H PRN IV NAUSEA AND/OR VOMITING Last administered on 05/06/16 16:48; Admin Dose 4 MG; Start 04/28/16 at 11:00 Acetaminophen/ Codeine Phosphate 1 tab 1 tab Q6H PRN PO PAIN Last administered on 05/03/16 13:53; Admin Dose 1 TAB; Start 04/28/16 at 11:00 Acetaminophen (Ofirmev 1000mg/ 100ml Iv) 100 ml @ 400 mls/hr Q6H PRN IVPB PAIN Last administered on 04/28/16 18:17; Admin Dose 400 MLS/HR; Start at 11:00 Sertraline HCl (Zoloft) 100 mg DAILY PO Last administered on 05/12/16 08:30; Admin Dose 100 MG; Start 04/29/16 at 09:00 Miscellaneous Information 1 ea NOTE XX ; Start 04/28/16 at 17:30 Glucose (Glutose) 15 gm Q15M PRN PO DECREASED GLUCOSE; Start 04/28/16 at 17:30 Glucose (Glutose) 22.5 gm Q15M PRN PO DECREASED GLUCOSE; Start 04/28/16 at 17: 30 Dextrose (D50w Syringe) 25 ml Q15M PRN IV DECREASED GLUCOSE; Start 04/28/16 at 17:30 Dextrose (D50w Syringe) 50 ml Q15M PRN IV DECREASED GLUCOSE; Start 04/28/16 at 17:30 Glucagon (Glucagen) 1 mg Q15M PRN IM DECREASED GLUCOSE; Start 04/28/16 at 17:30 Glucose (Glutose) 15 gm Q15M PRN BUCCAL DECREASED GLUCOSE; Start 04/28/16 at 17 :30 Alprazolam (Xanax) 1 mg Q12H PRN PO ANXIETY Last administered on 05/11/16 21:58 ; Admin Dose 1 MG; Start 05/03/16 at 05:56 Magnesium Hydroxide (Milk Of Mag) 30 ml QHS PO Last administered on 05/11/16 20 :30; Admin Dose 30 ML; Start 05/06/16 at 21:00 Fluconazole (Diflucan) 100 mg DAILY PO Last administered on 05/12/16 08:29; Admin Dose 100 MG; Start 05/09/16 at 15:00 Heparin Sodium (Porcine) (Heparin (5000 Units/0.5 ml)) 5,000 unit Q12 SC Last administered on 05/12/16 08:29; Admin Dose 5,000 UNIT; Start 05/09/16 at 21:00 Pantoprazole (Protonix Tab) 40 mg BID@06,18 PO Last administered on 05/12/16 05 :23; Admin Dose 40 MG; Start 05/10/16 at 18:00 Ferrous Sulfate (Ferrous Sulfate (Ec)) 325 mg TID PO Last administered on 08:30; Admin Dose 325 MG; Start 05/11/16 at 21:00 Mineral Oil (Mineral Oil) 30 ml TID PRN PO CONSTIPATION; Start 05/11/16 at 13:30 Hydromorphone HCl (Dilaudid) 0.6 mg Q5H PRN IV PAIN Last administered on 09:57; Admin Dose 0.6 MG; Start 05/11/16 at 14:03 Levofloxacin (Levaquin) 500 mg DAILY@06 PO Last administered on 05/12/16 05:23 ; Admin Dose 500 MG; Start 05/12/16 at 06:00 Ketorolac Tromethamine (Toradol) 30 mg Q8 PRN IV PAIN Last administered on 11:49; Admin Dose 30 MG; Start 05/12/16 at 10:00; Stop 05/13/16 at 19:00 Assessment/Plan Chief Complaint/Hosp Course PHYSICAL EXAMINATION VITAL SIGNS: Temperature 98, pulse is 89, blood pressure 120/64, O2 saturation 96% on 2 liters. NECK: Supple. No JVD or lymphadenopathy. CARDIAC: S1, S2, no added sounds or murmurs. CHEST: Diminished air entry bilaterally. ABDOMEN: Obese, soft, nontender, no guarding, no rebound. EXTREMITIES: No cyanosis, clubbing, edema. NEUROLOGIC: Grossly intact. No focal deficits. LABORATORY DATA: No labs today. IMPRESSION AND PLAN: A 35-year-old lady post laparoscopic cholecystectomy, morbid obesity; course complicated by anemia and postoperative atelectasis with alveolar hypoventilation and subsequent hypoxemia. The patient will require: 1. Continued incentive spirometry. 2. Encourage out of bed. 3. Ambulate today. Record oxygen saturation on room air Discharge planning okay from pulmonary standpoint We'll follow as needed Problems: NADYA GARDUNO MD, [facility] May 12, 2016 12:35
--- NOTE | 2016-05-12 16:54 | PDOCDIS ---
Discharge Instructions CONDITION Patient Condition: Stable HOME CARE INSTRUCTIONS: Special Diet: low fat, low cholesterol ACTIVITY: Activity Restrictions: Slowly Increase Activity FOLLOW UP/APPOINTMENTS Appointments f/u dr ramos [address] parra [address] maddox 2 wks see own pcp 1 wk JEB VAZQUEZ MD May 12, 2016 16:54
[2016-05-12] MEDS ORDERED: LEVO500T72 PO (17:11)
[2016-05-12] MEDS ORDERED: ACET1TAB40 PO (17:11)
[2016-05-12] MEDS ORDERED: FLUC100T PO (17:11)
[2016-05-12] MEDS ORDERED: MINE473O2 PO (17:11)
[2016-05-12] MEDS ORDERED: PANT40TA4 PO (17:11)
[2016-05-12] MEDS ORDERED: FER325 PO (17:11)
[2016-05-12] MEDS: ACETAMINOPHEN/CODEINE #3 TAB PO PRN (17:52)
--- NOTE | 2016-05-12 18:24 | CONS ---
Date/Time of Note Date/Time of Note DATE: 05/12/16 TIME: 18:24 Assessment/Plan Assessment/Plan Additional Assessment/Plan Assessment/Plan Additional Assessment/Plan Additional Assessment/Plan Additional Assessment/Plan Impression: 1. Symptomatic cholelithiasis, status post laparoscopic cholecystectomy. 2. possible bile leak ,negative 3. RUQ abdominal pain 4. iron deficiency anemia 5 obesity 6 leucocytosis,persistent,trending down,12,000 7.fluid in the peritoneum is blood Recommendation: 1. f/u MRCP to r/o bile leak 2. if bile leak on MRCP, will need ERCP with stent 3. continue iron replacement 4. 5.[place] scan for bile leak,negative 6.stool for C.Difficile toxins,negative Consultation Date/Type/Reason Admit Date/Time Apr 29, 2016 at 10:27 Type of Consultation: pulmonary 24 HR Interval Summary Constitutional: improved Exam/Review of Systems Vital Signs Vitals Vital Signs Date Time Temp Pulse Resp B/P Pulse Ox O2 Delivery O2 Flow Rate FiO2 05/12/16 08:22 99.1 83 18 111/56 98 05/12/16 08:00 Nasal Cannula 2.0 Intake and Output 05/11/16 05/11/16 05/12/16 15:00 23:00 07:00 Intake Total 1760 ml 520 ml Balance 1760 ml 520 ml Exam Constitutional: alert, oriented, well developed Psych: nl mood/affect, no complaints Head: atraumatic, normocephalic Eyes: EOMI, PERRL, nl conjunctiva, nl lids, nl sclera ENMT: nl external ears & nose, nl lips & teeth, nl nasal mucosa & septum Neck: non-tender, supple Respiratory: clear to auscultation, normal air movement Cardiovascular: nl pulses, regular rate and rhythm Gastrointestinal: nl liver, spleen, non-tender, soft Musculoskeletal: nl extremities to inspection, nl gait and stance Extremities: normal pulses Neurological: GUIDEMAN II-XII intact, nl mental status, nl speech, nl strength Skin: nl turgor, No rash or lesions Lymph: nl lymph nodes Results Result Diagram: 05/12/16 0540 05/11/16 0455 Results 24 hrs Laboratory Tests Test 05/11/16 20:29 05/12/16 05:40 05/12/16 08:01 05/12/16 11:48 Bedside Glucose 115 99 107 Absolute Reticulocyte Count 0.120 H Basophils # 0.0 Basophils % 0.4 Blood Morphology Comment Eosinophils # 0.2 Eosinophils % 2.0 Hematocrit 27.3 L Hemoglobin 8.9 L Lymphocytes # 2.9 Lymphocytes % 24.1 Mean Corpuscular Hemoglobin 26.8 L Mean Corpuscular Hemoglobin Concent 32.6 Mean Corpuscular Volume 82.1 Mean Platelet Volume 6.9 #L Monocytes # 0.8 Monocytes % 6.7 Neutrophils # 8.1 H Neutrophils % 66.8 Nucleated Red Blood Cells # 0.0 Nucleated Red Blood Cells % 0.0 Percent Reticulocyte Count 3.6 H Platelet Count 546 H Red Blood Count 3.33 L Red Cell Distribution Width 16.7 H White Blood Count 12.1 #H Test 05/12/16 16:48 Bedside Glucose 109 Medications Medications Current Medications Ondansetron HCl (Zofran Inj) 4 mg Q6H PRN IV NAUSEA AND/OR VOMITING Last administered on 05/06/16 16:48; Admin Dose 4 MG; Start 04/28/16 at 11:00 Acetaminophen/ Codeine Phosphate 1 tab 1 tab Q6H PRN PO PAIN Last administered on 05/12/16 17:52; Admin Dose 1 TAB; Start 04/28/16 at 11:00 Acetaminophen (Ofirmev 1000mg/ 100ml Iv) 100 ml @ 400 mls/hr Q6H PRN IVPB PAIN Last administered on 04/28/16 18:17; Admin Dose 400 MLS/HR; Start at 11:00 Sertraline HCl (Zoloft) 100 mg DAILY PO Last administered on 05/12/16 08:30; Admin Dose 100 MG; Start 04/29/16 at 09:00 Miscellaneous Information 1 ea NOTE XX ; Start 04/28/16 at 17:30 Glucose (Glutose) 15 gm Q15M PRN PO DECREASED GLUCOSE; Start 04/28/16 at 17:30 Glucose (Glutose) 22.5 gm Q15M PRN PO DECREASED GLUCOSE; Start 04/28/16 at 17: 30 Dextrose (D50w Syringe) 25 ml Q15M PRN IV DECREASED GLUCOSE; Start 04/28/16 at 17:30 Dextrose (D50w Syringe) 50 ml Q15M PRN IV DECREASED GLUCOSE; Start 04/28/16 at 17:30 Glucagon (Glucagen) 1 mg Q15M PRN IM DECREASED GLUCOSE; Start 04/28/16 at 17:30 Glucose (Glutose) 15 gm Q15M PRN BUCCAL DECREASED GLUCOSE; Start 04/28/16 at 17 :30 Alprazolam (Xanax) 1 mg Q12H PRN PO ANXIETY Last administered on 05/11/16 21:58 ; Admin Dose 1 MG; Start 05/03/16 at 05:56 Magnesium Hydroxide (Milk Of Mag) 30 ml QHS PO Last administered on 05/11/16 20 :30; Admin Dose 30 ML; Start 05/06/16 at 21:00 Fluconazole (Diflucan) 100 mg DAILY PO Last administered on 05/12/16 08:29; Admin Dose 100 MG; Start 05/09/16 at 15:00 Heparin Sodium (Porcine) (Heparin (5000 Units/0.5 ml)) 5,000 unit Q12 SC Last administered on 05/12/16 08:29; Admin Dose 5,000 UNIT; Start 05/09/16 at 21:00 Pantoprazole (Protonix Tab) 40 mg BID@06,18 PO Last administered on 05/12/16 17 :52; Admin Dose 40 MG; Start 05/10/16 at 18:00 Ferrous Sulfate (Ferrous Sulfate (Ec)) 325 mg TID PO Last administered on 13:58; Admin Dose 325 MG; Start 05/11/16 at 21:00 Mineral Oil (Mineral Oil) 30 ml TID PRN PO CONSTIPATION; Start 05/11/16 at 13:30 Hydromorphone HCl (Dilaudid) 0.6 mg Q5H PRN IV PAIN Last administered on 16:45; Admin Dose 0.6 MG; Start 05/11/16 at 14:03 Levofloxacin (Levaquin) 500 mg DAILY@06 PO Last administered on 05/12/16 05:23 ; Admin Dose 500 MG; Start 05/12/16 at 06:00 Ketorolac Tromethamine (Toradol) 30 mg Q8 PRN IV PAIN Last administered on 11:49; Admin Dose 30 MG; Start 05/12/16 at 10:00; Stop 05/13/16 at 19:00 JESUS AGUILAR MD May 12, 2016 18:24
--- NOTE | 2016-05-14 21:15 | QN ---
Documentation Comment [id number] JEB VAZQUEZ MD May 14, 2016 21:15
--- NOTE | 2016-05-15 07:46 | DS ---
DATE OF ADMISSION: 04/29/2016 DATE OF DISCHARGE: 05/12/2016 The patient was admitted with diagnosis of asymptomatic cholelithiasis and underwent laparoscopic cholecystectomy. Postoperatively developed leukocytosis and abdominal pain. CT scan was done. It showed patient had , and there was diagnostic evaluation due to _ artifact. The patient also underwent HIDA scan. There is no evidence of liver leak. Patient had CT scan done. It showed atelectasis. CT scan done shows patient has hepatomegaly status post cholecystectomy with no dilatation. No evidence of bowel obstruction. Patient had a moderate amount of free intraperitoneal fluid. Patient's leukocytosis resolved. Patient's urine shows , more than per unit. Patient was cleared by the recruiting and selection consultant to be discharged. DISCHARGE DIAGNOSES: 1. Status post cholecystectomy. 2. Systemic inflamm response syndrome. 3. Pneumonia. 4. Obesity. 5. Anemia. 6. Patient has urinary tract infection. 7. Leukocytosis. DISCHARGE MEDICATIONS: Patient to continue: 1. Tylenol with codeine. 2. mvi 3. Diflucan. 4. Levofloxacin. 5.. 6. Protonix. DIET: Low fat diet. Patient was stable at the time of discharge. Dictated By: JEB VAZQUEZ MD BS/NTS Conf#: [id number] DID#: [id number] MTDD
== END 2016-05-12 18:49 | disposition home or self-care (01) | DRG 417 ==
LOC: SDS 09:32 → PP2 19:05 → SDS 04-29 10:27 → PP2 04-29 10:27
PROVIDERS: ADMIT Internal Medicine Nephrology; ATTEND Internal Medicine Nephrology
PROC: 0FT44ZZ Resection of Gallbladder, Percutaneous Endoscopic Approach (ICD-10-PCS; principal; 2016-04-28 13:00)
PROC: 30233N1 Transfusion of Nonautologous Red Blood Cells into Peripheral Vein, Percutaneous Approach (ICD-10-PCS; 2016-04-30)
DX: K80.80 Other cholelithiasis without obstruction (principal); J18.9 Pneumonia, unspecified organism; J96.91 Respiratory failure, unspecified with hypoxia; R18.8 Other ascites; R65.10 Systemic inflammatory response syndrome (SIRS) of non-infectious origin without acute organ dysfunction; D62 Acute posthemorrhagic anemia; N39.0 Urinary tract infection, site not specified; Z68.41 Body mass index [BMI] 40.0-44.9, adult; K91.840 Postprocedural hemorrhage of a digestive system organ or structure following a digestive system procedure; K91.89 Other postprocedural complications and disorders of digestive system; J98.11 Atelectasis; F41.8 Other specified anxiety disorders; F32.9 Major depressive disorder, single episode, unspecified; E11.9 Type 2 diabetes mellitus without complications; E66.9 Obesity, unspecified; G89.18 Other acute postprocedural pain; F41.9 Anxiety disorder, unspecified; Y83.8 Other surgical procedures as the cause of abnormal reaction of the patient, or of later complication, without mention of misadventure at the time of the procedure; D50.9 Iron deficiency anemia, unspecified
CPT/HCPCS: 36430; 71010; 71275; 74177; 74181; 76700; 78226; 80048; 80053; 80202; 81001; 81003; 82565; 82962; 83036; 84520; 84703; 85014; 85018; 85025; 85045; 85610; 85730; 86850; 86900; 86901; 86920; 87040; 87075; 87081; 87086; 88304; A9537; C9113; J0131; J0690; J0696; J0743; J1100; J1170; J1815; J1885; J2175; J2250; J2270; J2370; J2405; J2710; J2795; J3010; J3370; J3480; J7040; J7050; J7120; P9016; Q9967

== ENCOUNTER 2016-07-08 15:35 | Inpatient (IN) | payer OTHER ==
[~2016-07-08] VITALS: Ht 162.6 cm; Wt 114.0 kg
[~2016-07-08 15:35] MED LIST: ACET1TAB40 PO; ALPR1TAB7 PO; FER325 PO; FLUC100T PO; LEVO500T72 PO; LUN2 PO; MINE473O2 PO; MTF1000T PO; PANT40TA4 PO; SERT-165 PO
[2016-07-08 20:00] VITALS: Ht 162.6 cm; Wt 114.0 kg
[2016-07-08] MEDS ORDERED: DEXTROSE 50% 50 ML SYRINGE IV PRN ×2 (20:30)
[2016-07-08] MEDS ORDERED: GLUCOSE GEL 15 GRAM TUBE BUCCAL PRN (20:30)
[2016-07-08] MEDS ORDERED: DEXTROSE 5%-0.45% NACL 1,000 ML IV SCH (20:30)
[2016-07-08] MEDS ORDERED: GLUCOSE GEL 15 GRAM TUBE PO PRN ×2 (20:30)
[2016-07-08] MEDS ORDERED: GLUCAGON 1 MG INJ IM PRN (20:30)
[2016-07-08] MEDS: ONDANSETRON 4 MG INJ IV PRN (20:34)
[2016-07-08] MEDS: HYDROmorphONE 1 MG/ML SYG IV PRN ×2 (20:34→23:32)
[2016-07-08] MEDS: LOSARTAN 25 MG TAB PO SCH (21:00)
--- NOTE | 2016-07-08 21:13 | QN ---
Documentation Comment [id number] JEB VAZQUEZ MD Jul 08, 2016 21:13
[2016-07-08 21:17] VITALS: BP 142/76; RESP 19
[2016-07-08] MEDS: INSULIN ASPART [NOVOLOG] 3 ML PEN SC SCH (21:30)
[2016-07-08] MEDS: ALPRAZOLAM 1 MG TAB PO SCH (21:47)
--- NOTE | 2016-07-08 21:57 | HP ---
DATE OF ADMISSION: 07/08/2016 HISTORY OF PRESENT ILLNESS: Saundra Perdomo is a young female who has a history status post cholecyste ctomy, status post systemic inflammatory response syndrome, pneumonia, obesity, anemia, leukocytosis . The patient had a postoperative fluid collection of the liver and was seen by Dr. Dixon as an out patient. MRI scan of the abdomen was done shows postup fluid collection biloma. The patient has mo re pain, nausea, vomiting, went to the ER at [facility] where she was monitored and transfe rred here for further management. Blood pressure 114/61. The patient's sodium 140, potassium 4, LF T within normal limits. Urinalysis is negative. The patient has CT abdomen and pelvis without cont rast shows cholecystectomy. Large fluid collection was seen between the right anterior abdominal wa ll and the liver which was nonspecific. DISCHARGE DIAGNOSES: Include: Postsurgical seroma. The patient is being admitted for further bret gement. PAST MEDICAL HISTORY: Cholecystectomy, appendectomy, orthopedic right ankle surgery. ALLERGY HISTORY: NEGATIVE. FAMILY HISTORY: Negative. SOCIAL HISTORY: Negative. MEDICATIONS AT HOME: 1. Tylenol. 2. Xanax. 3. Lunesta. 4. Sulfate. 5. Diflucan. 6. Levofloxacin. 7. Metformin. 8. Mineral oil. 9. Protonix. 10. Zoloft. REVIEW OF SYSTEMS: HEENT: Unremarkable. RESPIRATORY: Unremarkable. CARDIOVASCULAR: Unremarkable. ABDOMEN: Nausea and abdominal pain. EXTREMITIES: Unremarkable. GENITOURINARY: Unremarkable. MUSCULOSKELETAL: Unremarkable. PHYSICAL EXAMINATION: GENERAL: The patient is an overweight, obese female, awake, alert. VITAL SIGNS: Stable. HEAD: Atraumatic, normocephalic. Pupils equal, reactive to light. NECK: Supple. No JVD. LUNGS: Clear. CARDIOVASCULAR: S1, S2 are normal. ABDOMEN: Soft, nontender. Bowel sounds positive. No palpable mass. EXTREMITIES: No cyanosis, clubbing or edema. CENTRAL NERVOUS SYSTEM: The patient is awake and alert with no focal deficit. LABORATORY DATA: As mentioned above. IMPRESSION: 1. The patient has abdominal pain. 2. Post-fluid collection around the liver, possible biloma. The patient has a history of pneumonia , chronic obstructive pulmonary disease, history of obesity. Patient has a history of cholecystecto my, history of appendectomy. PLAN: Give this patient IV fluid gentle clear liquid diet. MEDICATIONS: The patient is currently on: 1. Xanax. 2. Zoloft. 3. Losartan. 4. Ambien. The patient was started on Protonix and SCDs to the legs. Dr. Dixon has been called to see this pat ient in consultation. Orders were done. Dictated By: JEB VAZQUEZ MD BS/NTS Conf#: [id number] DID#: [id number]
[2016-07-08 23:44] VITALS: BP 142/74; PULSE 87
[2016-07-09] MEDS: ZOLPIDEM 5 MG TAB PO PRN (00:31)
[2016-07-09] MEDS: ACCU-CHEK XX SCH (02:00)
[2016-07-09] MEDS ORDERED: ACCU-CHEK XX SCH (02:00)
[2016-07-09] MEDS: HYDROmorphONE 1 MG/ML SYG IV PRN ×11 (02:05→22:43)
[2016-07-09] MEDS: ONDANSETRON 4 MG INJ IV PRN ×4 (02:05→20:28)
[2016-07-09] MEDS: PANTOPRAZOLE 40 MG INJ IV SCH (05:10)
[2016-07-09 05:19] LABS: ADD SCAN DIFF NO
[2016-07-09 05:24] LABS: BASOPHIL # 0.1 10^3/ul (0.0-0.1); BASOPHILS % 0.6 % (0.0-2.0); EOSINOPHILS # 0.4 10^3/ul (0.0-0.5); EOSINOPHILS % 2.8 % (0.0-7.0); HEMATOCRIT 37.3 % (37.0-47.0); HEMOGLOBIN 11.7 g/dl (12.0-16.0); LYMPHOCYTES % 31.5 % (15.0-51.0); MEAN CORPUSCULAR HEMOGLOBIN 25.8 pg (29.0-33.0); MEAN CORPUSCULAR HGB CONC 31.4 g/dl (32.0-37.0); MEAN CORPUSCULAR VOLUME 82.2 fl (82.0-101.0); MEAN PLATELET VOLUME 9.1 fl (7.4-10.4); MONOCYTE # 0.7 10^3/ul (0.3-0.9); MONOCYTES % 5.6 % (0.0-11.0); NEUTROPHIL # 7.5 10^3/ul (1.6-7.5); PLATELET COUNT 344 10^3/UL (140-415); RED BLOOD COUNT 4.54 10^6/ul (4.20-5.40); RED CELL DISTRIBUTION WIDTH 15.4 % (11.5-14.5); WHITE BLOOD COUNT 12.7 10^3/ul (4.8-10.8)
[2016-07-09 06:03] LABS: ALBUMIN 3.9 g/dl (3.3-4.9); POTASSIUM 3.7 mmol/L (3.5-5.1)
[2016-07-09 06:06] LABS: ALBUMIN/GLOBULIN RATIO 1.05; BILIRUBIN,INDIRECT 0.4 mg/dl (0-1.1); BILIRUBIN,TOTAL 0.4 mg/dl (0.2-1.3); CALCIUM 8.1 mg/dl (8.4-10.2); CREATININE 0.43 mg/dl (0.44-1.00); TOTAL PROTEIN 7.6 g/dl (6.1-8.1)
[2016-07-09] MEDS: INSULIN ASPART [NOVOLOG] 3 ML PEN SC SCH ×4 (07:58→21:00)
[2016-07-09] MEDS: ALPRAZOLAM 1 MG TAB PO SCH ×2 (08:02→21:06)
[2016-07-09 08:06] VITALS: BP 145/89; RESP 18
[2016-07-09] MEDS: SERTRALINE 100 MG TAB PO SCH (10:07)
[2016-07-09 16:06] LABS: INR 1.13; PROTIME 14.5 Sec (12.2-14.2); PT RATIO 1.1
[2016-07-09 16:07] LABS: PARTIAL THROMBOPLASTIN TIME 36.5 Sec (25.0-35.0)
--- NOTE | 2016-07-09 16:11 | CONS ---
DATE OF ADMISSION: 07/08/2016 DATE OF CONSULTATION: 07/09/2016 TYPE OF CONSULTATION: Surgical. REQUESTING PHYSICIAN: Melvin Lange MD for Chandan Dixon MD and I am covering Dr. Dixon HISTORY OF PRESENT ILLNESS: Basically, this is a 36-year-old female who was transferred from [facility] because of abdominal pain in the right upper quadrant. They did a CT scan, they found a collection between the abdominal wall and right lobe of the liver. the rest of CT was unremarkable. Basically this patient had a cholecystectomy, laparoscopic, in 04/2016 in this hospital. Postoperative was a little complicated by having severe abdominal pain and was evaluated and evaluation revealed presence of fluid collection around the liver and in the right upper quadrant. Meanwhile, we found that the patient had a drop in her hemoglobin, so the patient received some blood transfusions. The assumption was that this was haematoma , so no attempt was made to aspirate it. The patient gradually got better. Also, she had a respiratory problem that was resolved, and had a consultation with Dr. Lujan. Then, the patient was discharged on 05/13/2016 on iron pills. Apparently, the patient was followed by Dr. Dixon in the office and she was feeling okay, some pain in the right upper quadrant, gradually was getting better. The patient has been doing fine, but now she tells me that she has not been eating. She has been vomiting also. In any case, the patient eventually referred to [place] 2 nights ago because of the continued and the slightly exacerbation of the right upper quadrant abdominal pain. Over there, she was found to have increased leukocyte count of 13,[address] findings that I mentioned, so because of capitation the patient was transferred here. PHYSICAL EXAMINATION: VITAL SIGNS: Today, patient's vital signs are as follows: Temperature 98.4, heart rate 76, respirations 18, blood pressure 145/89, saturation 96% on room air. GENERAL: The patient is alert and oriented x3, no acute distress. HEART: Regular. LUNGS: Respirations normal. ABDOMEN: Protruded, fat, soft. Only in right upper lateral quadrant over the lower part of the chest wall, there is tenderness on percussion. EXTREMITIES: Lower extremities within normal limits. LABORATORY DATA: WBC is 12,700 with 59% segmented, hemoglobin 11.7, hematocrit 37.3, platelet count is 344. Chemistry done in this hospital: Blood sugar is 112. Sodium, potassium, BUN and creatinine are normal. Total bilirubin is 0.4 , direct bilirubin 0, indirect bilirubin 0.4, AST 27, ALT 27, alkaline phosphatase 85, all within normal limits. Albumin is 3.9. Coagulation has not been done. IMPRESSION: Fluid collection (continuation of previous collection), actually resolving some of the fluid that was there was before. Now loculated fluid between the right lateral chest wall and the liver. I reviewed the CT scan from [place] with Dr. Saeed and he believes that this is out of the liver, it can be drained percutaneously. So, we are going to request percutaneous drainage of this fluid collection by invasive radiology either CT-guided or ultrasound-guided as they prefer. I discussed with the patient the findings and plan and she agrees. We will keep the patient n.p.o. after midnight. Dictated By: BRADLY CORTES/ARGELIA Conf#: [id number] DID#: [id number] MTDD
[2016-07-09] MEDS ORDERED: ASA/ACETAMINOPHEN/CAFF TAB PO PRN (19:30)
[2016-07-09] MEDS ORDERED: HYDROmorphONE 1 MG/ML SYG IV PRN (19:30)
--- NOTE | 2016-07-09 19:53 | PN ---
Date/Time of Note Date/Time of Note DATE: 07/09/16 TIME: 19:52 Assessment/Plan VTE Prophylaxis VTE Prophylaxis Intervention: other Lines/Catheters IV [facility]from [facility] Assessment/Plan Chief Complaint/Hosp Course IMPRESSION: 1. The patient has abdominal pain. 2. Post-fluid collection around the liver, possible biloma. The patient has a history of pneumonia, chronic obstructive pulmonary disease, history of obesity. Patient has a history of cholecystectomy, history of appendectomy. 3 leucocytosis plan antibiotic Problems: Subjective 24 Hr Interval Summary Cardiovascular: no complaints Gastrointestinal: pain (+) Exam/Review of Systems Vital Signs Vitals Vital Signs Date Time Temp Pulse Resp B/P Pulse Ox O2 Delivery O2 Flow Rate FiO2 07/09/16 08:06 98.4 76 18 145/89 96 Intake and Output 07/08/16 07/08/16 07/09/16 15:00 23:00 07:00 Intake Total 700 ml Balance 700 ml Exam Respiratory: clear to auscultation Cardiovascular: regular rate and rhythm Gastrointestinal: soft, tender (+) Results Result Diagram: 07/09/16 0500 07/09/16 0510 Results 24 hrs Laboratory Tests Test 07/08/16 21:46 07/09/16 05:00 07/09/16 05:10 07/09/16 07:45 Bedside Glucose 102 112 White Blood Count 12.7 H Red Blood Count 4.54 # Hemoglobin 11.7 #L Hematocrit 37.3 # Mean Corpuscular Volume 82.2 Mean Corpuscular Hemoglobin 25.8 L Mean Corpuscular Hemoglobin Concent 31.4 L Red Cell Distribution Width 15.4 H Platelet Count 344 Mean Platelet Volume 9.1 # Neutrophils % 59.0 Lymphocytes % 31.5 Monocytes % 5.6 Eosinophils % 2.8 Basophils % 0.6 Nucleated Red Blood Cells % 0.0 Neutrophils # 7.5 Lymphocytes # 4.0 H Monocytes # 0.7 Eosinophils # 0.4 Basophils # 0.1 Nucleated Red Blood Cells # 0.0 Sodium Level 137 Potassium Level 3.7 Chloride Level 105 Carbon Dioxide Level 25 Anion Gap 11 Blood Urea Nitrogen 3 L Creatinine 0.43 L Glucose Level 119 Hemoglobin A1c 5.2 Calcium Level 8.1 L Total Bilirubin 0.4 Direct Bilirubin 0.00 Indirect Bilirubin 0.4 Aspartate Amino Transf (AST/SGOT) 27 Alanine Aminotransferase (ALT/SGPT) 27 Alkaline Phosphatase 85 Total Protein 7.6 Albumin 3.9 Globulin 3.70 H Albumin/Globulin Ratio 1.05 Test 07/09/16 12:08 07/09/16 15:05 07/09/16 17:11 07/09/16 18:03 Bedside Glucose 107 145 159 Prothrombin Time 14.5 H Prothrombin Time Ratio 1.1 INR International Normalized Ratio 1.13 Activated Partial Thromboplast Time 36.5 H Medications Medications Current Medications Hydromorphone HCl (Dilaudid) 0.25 mg Q2H PRN IV PAIN Last administered on 18:06; Admin Dose 0.25 MG; Start 07/08/16 at 20:30 Ondansetron HCl (Zofran Inj) 4 mg Q6H PRN IV NAUSEA AND/OR VOMITING Last administered on 07/09/16 13:58; Admin Dose 4 MG; Start 07/08/16 at 20:30 Acetaminophen (Tylenol Tab) 650 mg Q6H PRN PO PAIN AND OR ELEVATED TEMP; Start 07/08/16 at 20:30 Diagnostic Test (Pha) (Accu-Chek) 1 ea 02 XX ; Start 07/09/16 at 02:00 Miscellaneous Information 1 ea NOTE XX ; Start 07/08/16 at 20:30 Glucose (Glutose) 15 gm Q15M PRN PO DECREASED GLUCOSE; Start 07/08/16 at 20:30 Glucose (Glutose) 22.5 gm Q15M PRN PO DECREASED GLUCOSE; Start 07/08/16 at 20:30 Dextrose (D50w Syringe) 25 ml Q15M PRN IV DECREASED GLUCOSE; Start 07/08/16 at 20:30 Dextrose (D50w Syringe) 50 ml Q15M PRN IV DECREASED GLUCOSE; Start 07/08/16 at 20:30 Glucagon (Glucagen) 1 mg Q15M PRN IM DECREASED GLUCOSE; Start 07/08/16 at 20:30 Glucose (Glutose) 15 gm Q15M PRN BUCCAL DECREASED GLUCOSE; Start 07/08/16 at 20: 30 Alprazolam (Xanax) 2 mg BID PO Last administered on 07/09/16 08:02; Admin Dose 2 MG; Start 07/08/16 at 21:00 Sertraline HCl (Zoloft) 200 mg DAILY PO Last administered on 07/09/16 10:07; Admin Dose 200 MG; Start 07/09/16 at 09:00 Losartan Potassium (Cozaar) 25 mg DAILY@21 PO ; Start 07/08/16 at 21:00 Zolpidem Tartrate (Ambien) 5 mg HS PRN PO INSOMNIA Last administered on 00:31; Admin Dose 5 MG; Start 07/08/16 at 21:00 Pantoprazole (Protonix Iv) 40 mg DAILY@06 IV Last administered on 07/09/16 05: 10; Admin Dose 40 MG; Start 07/09/16 at 06:00 Hydromorphone HCl (Dilaudid) 0.5 mg Q4H PRN IV PAIN; Start 07/09/16 at 19:30 Acetaminophen/ Aspirin/Caffeine 2 tab 2 tab DAILY PRN PO HEADACHE; Start at 19:30 Dextrose/Sodium Chloride (D5-1/2ns) 1,000 ml @ 40 mls/hr Q24H IV ; Start at 23:55 JEB VAZQUEZ MD Jul 09, 2016 19:53
[2016-07-09] MEDS: CEFTRIAXONE 1 GM/50 ML (PMX) 50 ML IVPB SCH (20:29)
[2016-07-09] MEDS: LOSARTAN 25 MG TAB PO SCH (21:06)
[2016-07-09 21:20] VITALS: BP 146/74; RESP 18
[2016-07-09] MEDS: DEXTROSE 5%-0.45% NACL 1,000 ML IV SCH (23:58)
[2016-07-10] MEDS: HYDROmorphONE 1 MG/ML SYG IV PRN ×9 (00:36→23:54)
[2016-07-10] MEDS: ACCU-CHEK XX SCH (02:00)
[2016-07-10] MEDS: ONDANSETRON 4 MG INJ IV PRN ×4 (02:35→23:58)
[2016-07-10] MEDS: PANTOPRAZOLE 40 MG INJ IV SCH (05:37)
[2016-07-10 07:45] LABS: ADD SCAN DIFF NO
[2016-07-10 07:50] VITALS: BP 116/57; RESP 18
[2016-07-10 07:53] LABS: BASOPHIL # 0.1 10^3/ul (0.0-0.1); BASOPHILS % 0.5 % (0.0-2.0); EOSINOPHILS # 0.3 10^3/ul (0.0-0.5); HEMATOCRIT 37.1 % (37.0-47.0); HEMOGLOBIN 11.5 g/dl (12.0-16.0); LYMPHOCYTES # 4.5 10^3/ul (0.8-2.9); LYMPHOCYTES % 39.6 % (15.0-51.0); MEAN CORPUSCULAR HEMOGLOBIN 25.8 pg (29.0-33.0); MEAN CORPUSCULAR VOLUME 83.4 fl (82.0-101.0); MEAN PLATELET VOLUME 9.4 fl (7.4-10.4); MONOCYTE # 0.7 10^3/ul (0.3-0.9); MONOCYTES % 6.6 % (0.0-11.0); NEUTROPHIL # 5.6 10^3/ul (1.6-7.5); NEUTROPHILS % 49.9 % (39.0-77.0); PLATELET COUNT 372 10^3/UL (140-415); RED BLOOD COUNT 4.45 10^6/ul (4.20-5.40); RED CELL DISTRIBUTION WIDTH 15.2 % (11.5-14.5); WHITE BLOOD COUNT 11.2 10^3/ul (4.8-10.8)
[2016-07-10] MEDS: INSULIN ASPART [NOVOLOG] 3 ML PEN SC SCH ×4 (08:00→21:00)
[2016-07-10] MEDS ORDERED: LIDOCAINE 1% (MDV) 20 ML INJ ONE (08:51)
[2016-07-10] MEDS ORDERED: FENTAnyl 50 MCG/ML VIAL ONE (08:51)
[2016-07-10] MEDS ORDERED: DIPHENHYDRAMINE 50 MG INJ ONE (08:51)
[2016-07-10] MEDS ORDERED: MIDAZOLAM 1 MG/ML 2 ML INJ ONE (08:51)
[2016-07-10 09:30] VITALS: BP 108/61; PULSE 77; RESP 20
[2016-07-10 10:15] VITALS: BP 107/62; PULSE 81; RESP 18
[2016-07-10 10:21] VITALS: BP 108/58; PULSE 80; RESP 20
[2016-07-10] MEDS: SERTRALINE 100 MG TAB PO SCH (11:58)
[2016-07-10] MEDS: ALPRAZOLAM 1 MG TAB PO SCH ×2 (11:58→21:14)
[2016-07-10 12:08] VITALS: BP 98/55; PULSE 74; RESP 18
--- NOTE | 2016-07-10 13:56 | PN ---
DATE: 07/10/2016 SUBJECTIVE: Patient is asleep. No new complaints. OBJECTIVE: The patient had aspiration of fluid collection today under CT guidance by Dr. Saeed. He t old me he gurdeep out almost 200 mL of brownish-looking fluid and he said that it was sent for culture as well. VITAL SIGNS: Temperature today 98.9, 74, 18, blood pressure 98/55, saturation 92% on room air. Right now the patient is asleep due to the effect of sedation that she received in the radiology de partment from the aspiration, but opens her eyes and she does not have any complaint. A ASSESSMENT AND PLAN: Aspiration of the fluid collection in the right side upper quadrant within the right lobe of the liver and chest wall, 200 mL of brownish fluid was aspirated. Will wait for the r esult of the culture. Meanwhile the patient is receiving antibiotics. Dictated By: BRADLY UGALDE MD PS/NTS Conf#: [id number] DID#: [id number]
--- NOTE | 2016-07-10 14:20 | RADRPT ---
PROCEDURE: CT guided right upper quadrant fluid collection drainage. CLINICAL INDICATION: Abdominal pain. Postop. TECHNIQUE: Informed consent was obtained. The procedure, risks, benefits, complications and alternatives were explained to the patient. Risks including bleeding and infection were explained. The patient underst ood and was willing to proceed. A procedural pause was performed. The patient's name, date of , and procedure to be performed were verified. One or more of the following dose reduction techniq ues were used: Automated exposure control, adjustment of the mA and/or kV according to patient size, use of iterative reconstruction technique. Using local anesthetic, sterile technique and CT guidance, a 19-gauge Yueh needle was advanced into the fluid collection in the right upper quadrant lateral to the liver. CT scan was performed confir martinez position. Dark brown fluid was also aspirated confirming position. The needle from the Yueh c atheter was removed, leaving the Yueh catheter in place within the fluid collection. A 0.035-inch A mplatz guidewire was advanced through the Yueh catheter into the fluid collection. The Yueh cathete r was removed. The tract was dilated to 8-Bengali. An 8.5 Bengali multipurpose drainage catheter was advanced over the guidewire into the fluid collection. The guidewire was removed. Additional scan carol was performed confirming position. The catheter was then sutured to the patient's skin with 2- 0 silk. Approximately 200 ml of dark brown fluid was aspirated. The catheter was connected to a dr ainage bag. A dressing was applied. The patient tolerated procedure well. COMPARISON: CT scan of the abdomen and pelvis dated 05/05/2016. FINDINGS: Final images demonstrate the drainage catheter in satisfactory position within the right upper quadr ant fluid collection. IMPRESSION: 1. Successful CT guided placement of drainage catheter and right upper quadrant fluid collection. RPTAT: QQ .Mao Saeed MD, MD Date Time Electronically viewed and signed by .Mao Saeed MD, on 07/10/2016 14:20 .R/
[2016-07-10 14:59] VITALS: BP 115/57; PULSE 79; RESP 18
[2016-07-10] MEDS: CEFTRIAXONE 1 GM/50 ML (PMX) 50 ML IVPB SCH (20:34)
[2016-07-10] MEDS: LOSARTAN 25 MG TAB PO SCH (21:14)
--- NOTE | 2016-07-10 21:20 | PN ---
Date/Time of Note Date/Time of Note DATE: 07/10/16 TIME: 21:19 Assessment/Plan VTE Prophylaxis VTE Prophylaxis Intervention: other Lines/Catheters IV Catheter Type (from [facility]): Saline Lock Assessment/Plan Chief Complaint/Hosp Course IMPRESSION: 1. The patient has abdominal pain. 2. Post-fluid collection around the liver, possible biloma. The patient has a history of pneumonia, chronic obstructive pulmonary disease, history of obesity. Patient has a history of cholecystectomy, history of appendectomy. 3 leucocytosis plan antibiotic ck cath drainage Problems: Subjective 24 Hr Interval Summary Subjective hx not possible: other (s/p drainage of abd fluid) Exam/Review of Systems Vital Signs Vitals Vital Signs Date Time Temp Pulse Resp B/P Pulse Ox O2 Delivery O2 Flow Rate FiO2 07/10/16 14:59 98.9 79 18 115/57 97 Room Air 07/10/16 10:21 2.0 Intake and Output 07/09/16 07/09/16 07/10/16 15:00 23:00 07:00 Intake Total 1010 ml 1190 ml Balance 1010 ml 1190 ml Exam Neck: supple Respiratory: clear to auscultation Cardiovascular: regular rate and rhythm Gastrointestinal: bowel sounds (+), soft Extremities: normal pulses Results Result Diagram: 07/10/16 0541 07/09/16 0510 Results 24 hrs Laboratory Tests Test 07/10/16 05:41 07/10/16 08:05 07/10/16 12:03 07/10/16 17:31 White Blood Count 11.2 H Red Blood Count 4.45 Hemoglobin 11.5 L Hematocrit 37.1 Mean Corpuscular Volume 83.4 Mean Corpuscular Hemoglobin 25.8 L Mean Corpuscular Hemoglobin Concent 31.0 L Red Cell Distribution Width 15.2 H Platelet Count 372 Mean Platelet Volume 9.4 Neutrophils % 49.9 Lymphocytes % 39.6 Monocytes % 6.6 Eosinophils % 3.0 Basophils % 0.5 Nucleated Red Blood Cells % 0.0 Neutrophils # 5.6 Lymphocytes # 4.5 H Monocytes # 0.7 Eosinophils # 0.3 Basophils # 0.1 Nucleated Red Blood Cells # 0.0 Bedside Glucose 102 93 128 Medications Medications Current Medications Hydromorphone HCl (Dilaudid) 0.25 mg Q2H PRN IV PAIN Last administered on t 17:40; Admin Dose 0.25 MG; Start 07/08/16 at 20:30 Ondansetron HCl (Zofran Inj) 4 mg Q6H PRN IV NAUSEA AND/OR VOMITING Last administered on 07/10/16 17:39; Admin Dose 4 MG; Start 07/08/16 at 20:30 Acetaminophen (Tylenol Tab) 650 mg Q6H PRN PO PAIN AND OR ELEVATED TEMP; Start 07/08/16 at 20:30 Diagnostic Test (Pha) (Accu-Chek) 1 ea 02 XX ; Start 07/09/16 at 02:00 Miscellaneous Information 1 ea NOTE XX ; Start 07/08/16 at 20:30 Glucose (Glutose) 15 gm Q15M PRN PO DECREASED GLUCOSE; Start 07/08/16 at 20:30 Glucose (Glutose) 22.5 gm Q15M PRN PO DECREASED GLUCOSE; Start 07/08/16 at 20:30 Dextrose (D50w Syringe) 25 ml Q15M PRN IV DECREASED GLUCOSE; Start 07/08/16 at 20:30 Dextrose (D50w Syringe) 50 ml Q15M PRN IV DECREASED GLUCOSE; Start 07/08/16 at 20:30 Glucagon (Glucagen) 1 mg Q15M PRN IM DECREASED GLUCOSE; Start 07/08/16 at 20:30 Glucose (Glutose) 15 gm Q15M PRN BUCCAL DECREASED GLUCOSE; Start 07/08/16 at 20: 30 Alprazolam (Xanax) 2 mg BID PO Last administered on 07/10/16 11:58; Admin Dose 2 MG; Start 07/08/16 at 21:00 Sertraline HCl (Zoloft) 200 mg DAILY PO Last administered on 07/10/16 11:58; Admin Dose 200 MG; Start 07/09/16 at 09:00 Losartan Potassium (Cozaar) 25 mg DAILY@21 PO Last administered on 07/09/16 21: 06; Admin Dose 25 MG; Start 07/08/16 at 21:00 Zolpidem Tartrate (Ambien) 5 mg HS PRN PO INSOMNIA Last administered on 00:31; Admin Dose 5 MG; Start 07/08/16 at 21:00 Pantoprazole (Protonix Iv) 40 mg DAILY@06 IV Last administered on 07/10/16 05: 37; Admin Dose 40 MG; Start 07/09/16 at 06:00 Hydromorphone HCl (Dilaudid) 0.5 mg Q4H PRN IV PAIN; Start 07/09/16 at 19:30 Acetaminophen/ Aspirin/Caffeine 2 tab 2 tab DAILY PRN PO HEADACHE; Start at 19:30 Dextrose/Sodium Chloride 1,000 ml @ 40 mls/hr Q24H IV Last administered on 07/09 23:58; Admin Dose 40 MLS/HR; Start 07/09/16 at 23:55 Ceftriaxone Sodium (Rocephin) 50 ml @ 100 mls/hr Q24H IVPB Last administered on 07/10/16 20:34; Admin Dose 100 MLS/HR; Start 07/09/16 at 20:30 Hydromorphone HCl (Dilaudid) 0.75 mg Q4H PRN IV PAIN Last administered on 19:55; Admin Dose 0.75 MG; Start 07/10/16 at 19:00 JEB VAZQUEZ MD Jul 10, 2016 21:20
[2016-07-10 22:42] LABS: ALBUMIN 3.7 g/dl (3.3-4.9)
[2016-07-10 22:43] LABS: POTASSIUM 3.7 mmol/L (3.5-5.1)
[2016-07-10 22:45] LABS: BILIRUBIN,INDIRECT 0.4 mg/dl (0-1.1); BILIRUBIN,TOTAL 0.4 mg/dl (0.2-1.3); CREATININE 0.53 mg/dl (0.44-1.00); TOTAL PROTEIN 7.5 g/dl (6.1-8.1)
[2016-07-10 22:46] LABS: ALBUMIN/GLOBULIN RATIO 0.97; CALCIUM 8.3 mg/dl (8.4-10.2)
[2016-07-10] MEDS: ZOLPIDEM 5 MG TAB PO PRN (23:58)
[2016-07-11] MEDS: ACCU-CHEK XX SCH (02:00)
[2016-07-11] MEDS: DEXTROSE 5%-0.45% NACL 1,000 ML IV SCH (04:06)
[2016-07-11] MEDS: HYDROmorphONE 1 MG/ML SYG IV PRN ×5 (04:07→20:35)
[2016-07-11] MEDS: PANTOPRAZOLE 40 MG INJ IV SCH (06:02)
[2016-07-11 07:05] LABS: ADD SCAN DIFF NO
[2016-07-11 07:10] LABS: BASOPHIL # 0.1 10^3/ul (0.0-0.1); BASOPHILS % 0.4 % (0.0-2.0); EOSINOPHILS # 0.4 10^3/ul (0.0-0.5); EOSINOPHILS % 2.7 % (0.0-7.0); HEMOGLOBIN 11.4 g/dl (12.0-16.0); LYMPHOCYTES # 3.2 10^3/ul (0.8-2.9); LYMPHOCYTES % 24.6 % (15.0-51.0); MEAN CORPUSCULAR HEMOGLOBIN 26.5 pg (29.0-33.0); MEAN CORPUSCULAR HGB CONC 31.7 g/dl (32.0-37.0); MEAN CORPUSCULAR VOLUME 83.5 fl (82.0-101.0); MEAN PLATELET VOLUME 9.5 fl (7.4-10.4); MONOCYTE # 0.8 10^3/ul (0.3-0.9); MONOCYTES % 6.4 % (0.0-11.0); NEUTROPHIL # 8.4 10^3/ul (1.6-7.5); NEUTROPHILS % 65.4 % (39.0-77.0); PLATELET COUNT 366 10^3/UL (140-415); RED BLOOD COUNT 4.31 10^6/ul (4.20-5.40); RED CELL DISTRIBUTION WIDTH 15.2 % (11.5-14.5); WHITE BLOOD COUNT 12.9 10^3/ul (4.8-10.8)
[2016-07-11] MEDS: INSULIN ASPART [NOVOLOG] 3 ML PEN SC SCH ×4 (08:00→20:15)
[2016-07-11 08:07] VITALS: BP 104/55; RESP 18
[2016-07-11] MEDS: ONDANSETRON 4 MG INJ IV PRN (08:08)
[2016-07-11] MEDS: ALPRAZOLAM 1 MG TAB PO SCH ×2 (09:15→20:35)
[2016-07-11] MEDS: SERTRALINE 100 MG TAB PO SCH (09:15)
[2016-07-11] MEDS ORDERED: OXYCODONE/ACETAMINOPHEN (5/325) TAB PO PRN (16:00)
[2016-07-11] MEDS: OXYCODONE/ACETAMINOPHEN (5/325) TAB PO PRN (18:25)
[2016-07-11] MEDS: LOSARTAN 25 MG TAB PO SCH (20:34)
[2016-07-11] MEDS: CEFTRIAXONE 1 GM/50 ML (PMX) 50 ML IVPB SCH (20:34)
[2016-07-11 20:58] VITALS: BP 100/47; RESP 18
[2016-07-12] MEDS: HYDROmorphONE 1 MG/ML SYG IV PRN ×6 (00:34→20:36)
[2016-07-12] MEDS: ACCU-CHEK XX SCH (01:26)
[2016-07-12] MEDS: ONDANSETRON 4 MG INJ IV PRN ×3 (02:00→20:36)
[2016-07-12] MEDS: ZOLPIDEM 5 MG TAB PO PRN (02:00)
[2016-07-12] MEDS: PANTOPRAZOLE 40 MG INJ IV SCH (05:40)
[2016-07-12 06:31] LABS: ALBUMIN 3.6 g/dl (3.3-4.9)
[2016-07-12 06:32] LABS: POTASSIUM 3.5 mmol/L (3.5-5.1)
[2016-07-12 06:34] LABS: ALBUMIN/GLOBULIN RATIO 0.97; BILIRUBIN,INDIRECT 0.3 mg/dl (0-1.1); BILIRUBIN,TOTAL 0.3 mg/dl (0.2-1.3); CREATININE 0.43 mg/dl (0.44-1.00); TOTAL PROTEIN 7.3 g/dl (6.1-8.1)
[2016-07-12 06:35] LABS: CALCIUM 8.5 mg/dl (8.4-10.2)
[2016-07-12] MEDS: INSULIN ASPART [NOVOLOG] 3 ML PEN SC SCH ×4 (08:00→20:48)
[2016-07-12 08:08] VITALS: BP 109/55; RESP 19
[2016-07-12] MEDS: SERTRALINE 100 MG TAB PO SCH (08:08)
[2016-07-12] MEDS: ALPRAZOLAM 1 MG TAB PO SCH ×2 (08:08→20:36)
[2016-07-12] MEDS: OXYCODONE/ACETAMINOPHEN (5/325) TAB PO PRN ×3 (09:30→21:30)
--- NOTE | 2016-07-12 15:24 | PN ---
DATE: 07/12/2016 SUBJECTIVE: States that since they put the drainage tube, she feels much better. The pain is much less. OBJECTIVE: VITAL SIGNS: Temperature 98.4, heart rate 83, respirations 19, blood pressure 109/55, saturation 94% on room air. ABDOMEN: Soft. EXTREMITIES: Legs no calf tenderness. LABORATORY DATA: Glucose 114. Anion gap 17, high. Creatinine 0.43, BUN 7, normal. Sodium and potassium normal. AST, ALT, alkaline phosphatase, bilirubin are normal. WBC was still up, yesterday 12,900, we do not have it for today. Pigtail drain in place . It has drained 360 mL yesterday and today since morning until now which is 1 p.m., 60 mL. It is brownish fluid, I assume it resembles bile. Unfortunately, the radiologist sent only for culture and no other chemistry. I am going to send a sample of the bag for bilirubin direct, indirect and hemoglobin. ASSESSMENT AND PLAN: A 36-year-old female status post laparoscopic cholecystectomy complicated by probably internal bleeding and some fluid around the liver. Eventually, the patient got better about 2 months ago, she went home and she has been doing fine, followed by the office of Dr. Dixon. A few days ago, she came back to the emergency room complaining of severe pain in the right upper lateral quadrant. CT scan showed loculated fluid collection. Percutaneous CT-guided drainage catheter was placed by Dr. Saeed. At that time, he drained 200 mL and now it is draining brownish fluid. We are going this fluid for bilirubin and hemoglobin, and the culture already has been sent. PLAN: Continue current care. Followup. Further decision will be made when the drainage drops to 0 or minimal. We may have to repeat CT scan of the abdomen. Dictated By: BRADLY UGALDE MD PS/NTS Conf#: [id number] DID#: [id number] MTDD
[2016-07-12 19:16] LABS: FLUID TYPE ABDOMINAL
[2016-07-12 19:17] LABS: FLUID APPEARANCE BLOODY
[2016-07-12 19:18] LABS: FLUID LYMPHOCYTES 20 %; FLUID MONOCYTES 19 %; FLUID NEUTROPHILS 61 %; FLUID RBC EST 2+; FLUID WBC'S 157 /cmm
[2016-07-12] MEDS: CEFTRIAXONE 1 GM/50 ML (PMX) 50 ML IVPB SCH (20:36)
[2016-07-12] MEDS: LOSARTAN 25 MG TAB PO SCH (20:39)
[2016-07-12 21:50] VITALS: BP 104/50; PULSE 66; RESP 20; RESP 66
--- NOTE | 2016-07-12 21:55 | PN ---
Date/Time of Note Date/Time of Note DATE: 07/12/16 TIME: 21:53 Assessment/Plan VTE Prophylaxis VTE Prophylaxis Intervention: other Lines/Catheters [facility] Saline Lock Assessment/Plan Chief Complaint/Hosp Course IMPRESSION: 1. hx cholecystectomy 2.s/ Post-fluid collection around the liver, possible biloma. The patient has a history of pneumonia, chronic obstructive pulmonary disease, history of obesity. Patient has a history of cholecystectomy, history of appendectomy. 3 leucocytosis 4 s/p ir drainage of abd fluid plan antibiotic ck cath drainage per surgery Problems: Subjective 24 Hr Interval Summary Respiratory: no complaints Cardiovascular: no complaints Gastrointestinal: pain (+) Exam/Review of Systems Vital Signs Vitals Vital Signs Date Time Temp Pulse Resp B/P Pulse Ox O2 Delivery O2 Flow Rate FiO2 07/12/16 08:08 98.4 83 19 109/55 94 07/10/16 14:59 Room Air 07/10/16 10:21 2.0 Intake and Output 07/11/16 07/11/16 07/12/16 15:00 23:00 07:00 Intake Total 1310 ml 740 ml Output Total 50 ml 0 ml Balance 1260 ml 740 ml Exam Neck: supple Respiratory: clear to auscultation Cardiovascular: regular rate and rhythm Gastrointestinal: bowel sounds (+), soft Extremities: normal pulses Results Result Diagram: 07/11/16 0545 07/12/16 0525 Results 24 hrs Laboratory Tests Test 07/12/16 05:25 07/12/16 08:01 07/12/16 12:03 07/12/16 16:00 Sodium Level 142 Potassium Level 3.5 Chloride Level 103 Carbon Dioxide Level 26 Anion Gap 17 H Blood Urea Nitrogen 7 Creatinine 0.43 L Glucose Level 143 Calcium Level 8.5 Total Bilirubin 0.3 Direct Bilirubin 0.00 Indirect Bilirubin 0.3 Aspartate Amino Transf (AST/SGOT) 30 Alanine Aminotransferase (ALT/SGPT) 27 Alkaline Phosphatase 90 Total Protein 7.3 Albumin 3.6 Globulin 3.70 H Albumin/Globulin Ratio 0.97 Bedside Glucose 99 114 Body Fluid Type ABDOMINAL Body Fluid Volume 35.0 Body Fluid Color DARK BROWN Body Fluid Appearance BLOODY Body Fluid WBC 157 Body Fluid RBC 2+ Body Fluid Neutrophils % 61 Body Fluid Lymphocytes (%) 20 Body Fluid Monocytes % 19 Body Fluid Other Cells (%) Test 07/12/16 17:09 07/12/16 20:45 Bedside Glucose 100 113 Medications Medications Current Medications Hydromorphone HCl (Dilaudid) 0.25 mg Q2H PRN IV PAIN Last administered on 08:12; Admin Dose 0.25 MG; Start 07/08/16 at 20:30 Ondansetron HCl (Zofran Inj) 4 mg Q6H PRN IV NAUSEA AND/OR VOMITING Last administered on 07/12/16 20:36; Admin Dose 4 MG; Start 07/08/16 at 20:30 Acetaminophen (Tylenol Tab) 650 mg Q6H PRN PO PAIN AND OR ELEVATED TEMP; Start 07/08/16 at 20:30 Diagnostic Test (Pha) (Accu-Chek) 1 ea 02 XX ; Start 07/09/16 at 02:00 Miscellaneous Information 1 ea NOTE XX ; Start 07/08/16 at 20:30 Glucose (Glutose) 15 gm Q15M PRN PO DECREASED GLUCOSE; Start 07/08/16 at 20:30 Glucose (Glutose) 22.5 gm Q15M PRN PO DECREASED GLUCOSE; Start 07/08/16 at 20:30 Dextrose (D50w Syringe) 25 ml Q15M PRN IV DECREASED GLUCOSE; Start 07/08/16 at 20:30 Dextrose (D50w Syringe) 50 ml Q15M PRN IV DECREASED GLUCOSE; Start 07/08/16 at 20:30 Glucagon (Glucagen) 1 mg Q15M PRN IM DECREASED GLUCOSE; Start 07/08/16 at 20:30 Glucose (Glutose) 15 gm Q15M PRN BUCCAL DECREASED GLUCOSE; Start 07/08/16 at 20: 30 Alprazolam (Xanax) 2 mg BID PO Last administered on 07/12/16 20:36; Admin Dose 2 MG; Start 07/08/16 at 21:00 Sertraline HCl (Zoloft) 200 mg DAILY PO Last administered on 07/12/16 08:08; Admin Dose 200 MG; Start 07/09/16 at 09:00 Losartan Potassium (Cozaar) 25 mg DAILY@21 PO Last administered on 07/12/16 20: 39; Admin Dose 25 MG; Start 07/08/16 at 21:00 Zolpidem Tartrate (Ambien) 5 mg HS PRN PO INSOMNIA Last administered on 02:00; Admin Dose 5 MG; Start 07/08/16 at 21:00 Pantoprazole (Protonix Iv) 40 mg DAILY@06 IV Last administered on 07/12/16 05: 40; Admin Dose 40 MG; Start 07/09/16 at 06:00 Hydromorphone HCl (Dilaudid) 0.5 mg Q4H PRN IV PAIN; Start 07/09/16 at 19:30 Acetaminophen/ Aspirin/Caffeine 2 tab 2 tab DAILY PRN PO HEADACHE; Start at 19:30 Ceftriaxone Sodium (Rocephin) 50 ml @ 100 mls/hr Q24H IVPB Last administered on 07/12/16 20:36; Admin Dose 100 MLS/HR; Start 07/09/16 at 20:30 Hydromorphone HCl (Dilaudid) 0.75 mg Q4H PRN IV PAIN Last administered on 20:36; Admin Dose 0.75 MG; Start 07/10/16 at 19:00 Oxycodone/ Acetaminophen (Percocet (5/ 325)) 1 tab Q6H PRN PO PAIN Last administered on 07/12/16 21:30; Admin Dose 1 TAB; Start 07/11/16 at 15:45 JEB VAZQUEZ MD Jul 12, 2016 21:55
[2016-07-13] MEDS: HYDROmorphONE 1 MG/ML SYG IV PRN ×6 (00:39→22:22)
[2016-07-13] MEDS: ZOLPIDEM 5 MG TAB PO PRN (00:39)
[2016-07-13] MEDS: ACCU-CHEK XX SCH (02:00)
[2016-07-13] MEDS: ONDANSETRON 4 MG INJ IV PRN ×3 (02:32→22:53)
[2016-07-13] MEDS: OXYCODONE/ACETAMINOPHEN (5/325) TAB PO PRN ×4 (03:32→19:13)
[2016-07-13] MEDS: PANTOPRAZOLE 40 MG INJ IV SCH (04:32)
[2016-07-13 05:31] LABS: ADD SCAN DIFF NO
[2016-07-13 05:36] LABS: BASOPHILS % 0.4 % (0.0-2.0); EOSINOPHILS # 0.5 10^3/ul (0.0-0.5); EOSINOPHILS % 5.4 % (0.0-7.0); HEMATOCRIT 34.5 % (37.0-47.0); HEMOGLOBIN 10.9 g/dl (12.0-16.0); LYMPHOCYTES # 4.4 10^3/ul (0.8-2.9); LYMPHOCYTES % 44.9 % (15.0-51.0); MEAN CORPUSCULAR HEMOGLOBIN 26.5 pg (29.0-33.0); MEAN CORPUSCULAR HGB CONC 31.6 g/dl (32.0-37.0); MEAN CORPUSCULAR VOLUME 83.7 fl (82.0-101.0); MEAN PLATELET VOLUME 9.4 fl (7.4-10.4); MONOCYTE # 0.6 10^3/ul (0.3-0.9); MONOCYTES % 6.3 % (0.0-11.0); NEUTROPHIL # 4.2 10^3/ul (1.6-7.5); NEUTROPHILS % 42.6 % (39.0-77.0); PLATELET COUNT 371 10^3/UL (140-415); RED BLOOD COUNT 4.12 10^6/ul (4.20-5.40); RED CELL DISTRIBUTION WIDTH 15.2 % (11.5-14.5); WHITE BLOOD COUNT 9.8 10^3/ul (4.8-10.8)
[2016-07-13 08:00] VITALS: BP 100/62; RESP 18
[2016-07-13] MEDS: INSULIN ASPART [NOVOLOG] 3 ML PEN SC SCH ×4 (08:00→21:00)
[2016-07-13] MEDS: ALPRAZOLAM 1 MG TAB PO SCH ×2 (08:46→22:29)
[2016-07-13] MEDS: SERTRALINE 100 MG TAB PO SCH (08:47)
[2016-07-13] MEDS: CEFTRIAXONE 1 GM/50 ML (PMX) 50 ML IVPB SCH (20:48)
[2016-07-13 21:28] VITALS: BP 131/65; RESP 20
[2016-07-13] MEDS: LOSARTAN 25 MG TAB PO SCH (22:26)
--- NOTE | 2016-07-13 22:30 | PN ---
Date/Time of Note Date/Time of Note DATE: 07/13/16 TIME: 22:29 Assessment/Plan VTE Prophylaxis VTE Prophylaxis Intervention: other Lines/Catheters IV [facility]ter Type (from [facility]): Saline Lock Assessment/Plan Chief Complaint/Hosp Course IMPRESSION: 1. hx cholecystectomy 2.s/ Post-fluid collection around the liver, possible biloma. The patient has a history of pneumonia, chronic obstructive pulmonary disease, history of obesity. Patient has a history of cholecystectomy, history of appendectomy. 3 leucocytosis better 4 s/p ir drainage of abd fluid plan antibiotic ck cath drainage per surgery Problems: Subjective 24 Hr Interval Summary Subjective hx not possible: other (drainage better) Exam/Review of Systems Vital Signs Vitals Vital Signs Date Time Temp Pulse Resp B/P Pulse Ox O2 Delivery O2 Flow Rate FiO2 07/13/16 21:28 98.2 71 20 131/65 97 07/12/16 21:50 Room Air 07/10/16 10:21 2.0 Intake and Output 07/12/16 07/12/16 07/13/16 15:00 23:00 07:00 Intake Total 850 ml 960 ml Output Total 30 ml 40 ml Balance 820 ml 920 ml Exam Respiratory: diminished breath sounds Cardiovascular: regular rate and rhythm Gastrointestinal: bowel sounds, non-tender, soft Extremities: normal pulses Results Result Diagram: 07/13/16 0420 07/12/16 0525 Results 24 hrs Laboratory Tests Test 07/13/16 04:20 07/13/16 08:18 07/13/16 11:54 07/13/16 17:07 White Blood Count 9.8 # Red Blood Count 4.12 L Hemoglobin 10.9 L Hematocrit 34.5 L Mean Corpuscular Volume 83.7 Mean Corpuscular Hemoglobin 26.5 L Mean Corpuscular Hemoglobin Concent 31.6 L Red Cell Distribution Width 15.2 H Platelet Count 371 Mean Platelet Volume 9.4 Neutrophils % 42.6 Lymphocytes % 44.9 Monocytes % 6.3 Eosinophils % 5.4 Basophils % 0.4 Nucleated Red Blood Cells % 0.0 Neutrophils # 4.2 Lymphocytes # 4.4 H Monocytes # 0.6 Eosinophils # 0.5 Basophils # 0.0 Nucleated Red Blood Cells # 0.0 Bedside Glucose 106 136 106 Medications Medications Current Medications Hydromorphone HCl (Dilaudid) 0.25 mg Q2H PRN IV PAIN Last administered on 4/8/ 17at 08:12; Admin Dose 0.25 MG; Start 07/08/16 at 20:30 Ondansetron HCl (Zofran Inj) 4 mg Q6H PRN IV NAUSEA AND/OR VOMITING Last administered on 07/13/16 08:47; Admin Dose 4 MG; Start 07/08/16 at 20:30 Acetaminophen (Tylenol Tab) 650 mg Q6H PRN PO PAIN AND OR ELEVATED TEMP; Start 07/08/16 at 20:30 Diagnostic Test (Pha) (Accu-Chek) 1 ea 02 XX ; Start 07/09/16 at 02:00 Miscellaneous Information 1 ea NOTE XX ; Start 07/08/16 at 20:30 Glucose (Glutose) 15 gm Q15M PRN PO DECREASED GLUCOSE; Start 07/08/16 at 20:30 Glucose (Glutose) 22.5 gm Q15M PRN PO DECREASED GLUCOSE; Start 07/08/16 at 20:30 Dextrose (D50w Syringe) 25 ml Q15M PRN IV DECREASED GLUCOSE; Start 07/08/16 at 20:30 Dextrose (D50w Syringe) 50 ml Q15M PRN IV DECREASED GLUCOSE; Start 07/08/16 at 20:30 Glucagon (Glucagen) 1 mg Q15M PRN IM DECREASED GLUCOSE; Start 07/08/16 at 20:30 Glucose (Glutose) 15 gm Q15M PRN BUCCAL DECREASED GLUCOSE; Start 07/08/16 at 20: 30 Alprazolam (Xanax) 2 mg BID PO Last administered on 07/13/16 08:46; Admin Dose 2 MG; Start 07/08/16 at 21:00 Sertraline HCl (Zoloft) 200 mg DAILY PO Last administered on 07/13/16 08:47; Admin Dose 200 MG; Start 07/09/16 at 09:00 Losartan Potassium (Cozaar) 25 mg DAILY@21 PO Last administered on 07/12/16 20: 39; Admin Dose 25 MG; Start 07/08/16 at 21:00 Zolpidem Tartrate (Ambien) 5 mg HS PRN PO INSOMNIA Last administered on 00:39; Admin Dose 5 MG; Start 07/08/16 at 21:00 Hydromorphone HCl (Dilaudid) 0.5 mg Q4H PRN IV PAIN; Start 07/09/16 at 19:30 Acetaminophen/ Aspirin/Caffeine 2 tab 2 tab DAILY PRN PO HEADACHE; Start at 19:30 Ceftriaxone Sodium (Rocephin) 50 ml @ 100 mls/hr Q24H IVPB Last administered on 07/13/16 20:48; Admin Dose 100 MLS/HR; Start 07/09/16 at 20:30 Hydromorphone HCl (Dilaudid) 0.75 mg Q4H PRN IV PAIN Last administered on 16:53; Admin Dose 0.75 MG; Start 07/10/16 at 19:00 Oxycodone/ Acetaminophen (Percocet (5/ 325)) 1 tab Q6H PRN PO PAIN Last administered on 07/13/16 19:13; Admin Dose 1 TAB; Start 07/11/16 at 15:45 Pantoprazole (Protonix Tab) 40 mg DAILY@06 PO ; Start 07/14/16 at 06:00 JEB VAZQUEZ MD Jul 13, 2016 22:30
[2016-07-14] MEDS: OXYCODONE/ACETAMINOPHEN (5/325) TAB PO PRN ×3 (01:32→16:54)
[2016-07-14] MEDS: ACCU-CHEK XX SCH (02:00)
[2016-07-14] MEDS: HYDROmorphONE 1 MG/ML SYG IV PRN ×6 (02:24→22:38)
[2016-07-14] MEDS: PANTOPRAZOLE (EC) 40 MG TAB PO SCH (05:51)
[2016-07-14] MEDS: INSULIN ASPART [NOVOLOG] 3 ML PEN SC SCH ×4 (07:56→21:00)
[2016-07-14] MEDS: ALPRAZOLAM 1 MG TAB PO SCH ×2 (08:18→20:51)
[2016-07-14] MEDS: SERTRALINE 100 MG TAB PO SCH (08:18)
--- NOTE | 2016-07-14 08:23 | PN ---
DATE: 07/13/2016 SUBJECTIVE: Patient feels much better than the time of admission, has had bowel movement, no chills, no fever. OBJECTIVE GENERAL: Alert, awake, oriented. VITAL SIGNS: 97.9, 70, 18, 100/62, 95 saturation on room air. LABORATORY DATA: WBC dropped to 9800, normal, with 42% neutrophils; hemoglobin 10.9; hematocrit 34.5. Blood sugar POC glucose 136. The sample from the bag from drainage from the abdominal cavity was sent for bilirubin. Apparently they cannot do it here, they had sent it out to the outside lab, but they did evaluation for blood and the color was reported as dark brown, bloody. WBC is _ ____, RBC 2+, neutrophils 61%, and none. PHYSICAL EXAMINATION: GENERAL: The pigtail drain is in place, functioning and it has drained 70 mL in past 24 hours. It is dark brown and probably bloody or bilirubin color. ABDOMEN: Soft. Medial side of the placement of the pigtail, there is some tenderness on pressure and she says that this has appeared since they put the drain in place. ASSESSMENT: Patient is status post laparoscopic cholecystectomy between 2 and 3 months ago. She had fluid collection probably intraperitoneal bleeding around the gallbladder area. Eventually she was discharged about 2 months ago. She has been doing fine at home relatively and a few days ago she had more pain in the right upper lateral quadrant, came to the emergency room. CT scan was performed showed loculated fluid. Dr. Saeed in interventional radiology put a pigtail drain and drained 200 mL, brownish and every day is draining between 50 to 70 mL. I am not sure if this is blood, old blood, liquefied blood or is bile. Have sent a sample for bile, bilirubin. I am going to order an MRCP tomorrow to evaluate the biliary tree. Dictated By: BRADLY UGALDE MD PS/NTS Conf#: [id number] DID#: [id number] CC: JEB VAZQUEZ MD;*EndCC* MTDD
[2016-07-14 08:43] VITALS: BP 131/61; RESP 16
[2016-07-14] MEDS: ONDANSETRON 4 MG INJ IV PRN (10:41)
--- NOTE | 2016-07-14 17:44 | RADRPT ---
PROCEDURE: MRCP without contrast. CLINICAL INDICATION: Right upper quadrant abdominal pain. TECHNIQUE: Routine MRCP was obtained without the administration of intravenous contrast. COMPARISON: MRCP, 06/04/2016. FINDINGS: There is decreased size of the previously identified fluid collection causing mild mass effect in th e right posterior lobe of the liver measuring 10.3 x 5.3 cm. There is small perihepatic ascites. Gallbladder is unremarkable. No intra- or extra-hepatic biliary dilatation is identified. There is no filling defect or choledocholithiasis. There is no biliary stricture. The pancreatic duct is within normal limits. IMPRESSION: Decreased size of previously identified perihepatic fluid collection with a new drainage catheter in place. Biliary system is nondilated without filling defect or choledocholithiasis. If there is a clinical concern for a persistent bile leak, recommend HIDA scan. RPTAT: EE .Deyvi Sterling MD, Date Time Electronically viewed and signed by .Deyvi Sterling MD, on 07/14/2016 16:19 .C/
[2016-07-14] MEDS: CEFTRIAXONE 1 GM/50 ML (PMX) 50 ML IVPB SCH (20:51)
[2016-07-14] MEDS: LOSARTAN 25 MG TAB PO SCH (20:53)
[2016-07-14 21:00] VITALS: BP 124/59; RESP 18
[2016-07-14] MEDS: ZOLPIDEM 5 MG TAB PO PRN (22:32)
--- NOTE | 2016-07-14 22:34 | PN ---
Date/Time of Note Date/Time of Note DATE: 07/14/16 TIME: 22:32 Assessment/Plan VTE Prophylaxis VTE Prophylaxis Intervention: other Lines/Catheters IV Catheter Type (from [facility]): Saline Lock Assessment/Plan Chief Complaint/Hosp Course IMPRESSION: 1. hx cholecystectomy 2.s/ Post-fluid collection around the liver, possible biloma. The patient has a history of pneumonia, chronic obstructive pulmonary disease, history of obesity. Patient has a history of cholecystectomy, history of appendectomy. 3 leucocytosis better 4 s/p ir drainage of abd fluid plan antibiotic ck cath drainage per surgery ck mri Problems: Subjective 24 Hr Interval Summary Cardiovascular: no complaints Gastrointestinal: pain (better) Exam/Review of Systems Vital Signs Vitals Vital Signs Date Time Temp Pulse Resp B/P Pulse Ox O2 Delivery O2 Flow Rate FiO2 07/14/16 21:00 98.0 73 18 124/59 92 07/12/16 21:50 Room Air 07/10/16 10:21 2.0 Intake and Output 07/13/16 07/13/16 07/14/16 14:59 22:59 06:59 Intake Total 1050 ml 580 ml Balance 1050 ml 580 ml Exam Respiratory: clear to auscultation Cardiovascular: regular rate and rhythm Gastrointestinal: soft Musculoskeletal: nl extremities to inspection Extremities: normal pulses Results Result Diagram: 07/13/16 0420 07/12/16 0525 Results 24 hrs Laboratory Tests Test 07/13/16 22:56 07/14/16 07:43 07/14/16 12:12 07/14/16 17:50 Bedside Glucose 112 107 95 126 Test 07/14/16 21:04 Bedside Glucose 103 Medications Medications Current Medications Hydromorphone HCl (Dilaudid) 0.25 mg Q2H PRN IV PAIN Last administered on 05:04; Admin Dose 0.25 MG; Start 07/08/16 at 20:30 Ondansetron HCl (Zofran Inj) 4 mg Q6H PRN IV NAUSEA AND/OR VOMITING Last administered on 07/14/16 10:41; Admin Dose 4 MG; Start 07/08/16 at 20:30 Acetaminophen (Tylenol Tab) 650 mg Q6H PRN PO PAIN AND OR ELEVATED TEMP; Start 07/08/16 at 20:30 Diagnostic Test (Pha) (Accu-Chek) 1 ea 02 XX ; Start 07/09/16 at 02:00 Miscellaneous Information 1 ea NOTE XX ; Start 07/08/16 at 20:30 Glucose (Glutose) 15 gm Q15M PRN PO DECREASED GLUCOSE; Start 07/08/16 at 20:30 Glucose (Glutose) 22.5 gm Q15M PRN PO DECREASED GLUCOSE; Start 07/08/16 at 20:30 Dextrose (D50w Syringe) 25 ml Q15M PRN IV DECREASED GLUCOSE; Start 07/08/16 at 20:30 Dextrose (D50w Syringe) 50 ml Q15M PRN IV DECREASED GLUCOSE; Start 07/08/16 at 20:30 Glucagon (Glucagen) 1 mg Q15M PRN IM DECREASED GLUCOSE; Start 07/08/16 at 20:30 Glucose (Glutose) 15 gm Q15M PRN BUCCAL DECREASED GLUCOSE; Start 07/08/16 at 20: 30 Alprazolam (Xanax) 2 mg BID PO Last administered on 07/14/16 20:51; Admin Dose 2 MG; Start 07/08/16 at 21:00 Sertraline HCl (Zoloft) 200 mg DAILY PO Last administered on 07/14/16 08:18; Admin Dose 200 MG; Start 07/09/16 at 09:00 Losartan Potassium (Cozaar) 25 mg DAILY@21 PO Last administered on 07/14/16 20 :53; Admin Dose 25 MG; Start 07/08/16 at 21:00 Zolpidem Tartrate (Ambien) 5 mg HS PRN PO INSOMNIA Last administered on 00:39; Admin Dose 5 MG; Start 07/08/16 at 21:00 Hydromorphone HCl (Dilaudid) 0.5 mg Q4H PRN IV PAIN; Start 07/09/16 at 19:30 Acetaminophen/ Aspirin/Caffeine 2 tab 2 tab DAILY PRN PO HEADACHE; Start at 19:30 Ceftriaxone Sodium (Rocephin) 50 ml @ 100 mls/hr Q24H IVPB Last administered on 07/14/16 20:51; Admin Dose 100 MLS/HR; Start 07/09/16 at 20:30 Hydromorphone HCl (Dilaudid) 0.75 mg Q4H PRN IV PAIN Last administered on 20:16; Admin Dose 0.75 MG; Start 07/10/16 at 19:00 Oxycodone/ Acetaminophen (Percocet (5/ 325)) 1 tab Q6H PRN PO PAIN Last administered on 07/14/16 16:54; Admin Dose 1 TAB; Start 07/11/16 at 15:45 Pantoprazole (Protonix Tab) 40 mg DAILY@06 PO Last administered on 07/14/16 05 :51; Admin Dose 40 MG; Start 07/14/16 at 06:00 JEB VAZQUEZ MD Jul 14, 2016 22:34
[2016-07-15] MEDS: HYDROmorphONE 1 MG/ML SYG IV PRN ×5 (01:50→22:57)
[2016-07-15] MEDS: ACCU-CHEK XX SCH (02:00)
[2016-07-15] MEDS: OXYCODONE/ACETAMINOPHEN (5/325) TAB PO PRN ×2 (04:32→20:02)
[2016-07-15 05:02] LABS: ADD SCAN DIFF NO
[2016-07-15 05:14] LABS: BASOPHIL # 0.1 10^3/ul (0.0-0.1); BASOPHILS % 0.5 % (0.0-2.0); EOSINOPHILS # 0.4 10^3/ul (0.0-0.5); EOSINOPHILS % 4.2 % (0.0-7.0); HEMATOCRIT 35.5 % (37.0-47.0); HEMOGLOBIN 11.2 g/dl (12.0-16.0); LYMPHOCYTES # 3.7 10^3/ul (0.8-2.9); LYMPHOCYTES % 38.3 % (15.0-51.0); MEAN CORPUSCULAR HEMOGLOBIN 26.2 pg (29.0-33.0); MEAN CORPUSCULAR HGB CONC 31.5 g/dl (32.0-37.0); MEAN CORPUSCULAR VOLUME 82.9 fl (82.0-101.0); MEAN PLATELET VOLUME 9.1 fl (7.4-10.4); MONOCYTE # 0.6 10^3/ul (0.3-0.9); MONOCYTES % 6.3 % (0.0-11.0); NEUTROPHIL # 4.9 10^3/ul (1.6-7.5); NEUTROPHILS % 50.5 % (39.0-77.0); PLATELET COUNT 360 10^3/UL (140-415); RED BLOOD COUNT 4.28 10^6/ul (4.20-5.40); RED CELL DISTRIBUTION WIDTH 15.2 % (11.5-14.5); WHITE BLOOD COUNT 9.7 10^3/ul (4.8-10.8)
[2016-07-15 05:37] LABS: ALBUMIN 3.6 g/dl (3.3-4.9); ALBUMIN/GLOBULIN RATIO 0.97; BILIRUBIN,INDIRECT 0.2 mg/dl (0-1.1); BILIRUBIN,TOTAL 0.2 mg/dl (0.2-1.3); CALCIUM 8.5 mg/dl (8.4-10.2); CREATININE 0.45 mg/dl (0.44-1.00); POTASSIUM 3.8 mmol/L (3.5-5.1); TOTAL PROTEIN 7.3 g/dl (6.1-8.1)
[2016-07-15] MEDS: PANTOPRAZOLE (EC) 40 MG TAB PO SCH (05:53)
[2016-07-15] MEDS: INSULIN ASPART [NOVOLOG] 3 ML PEN SC SCH ×4 (08:00→21:00)
[2016-07-15] MEDS: SERTRALINE 100 MG TAB PO SCH (09:52)
[2016-07-15] MEDS: ALPRAZOLAM 1 MG TAB PO SCH ×2 (09:52→21:10)
[2016-07-15] MEDS: ONDANSETRON 4 MG INJ IV PRN (18:04)
--- NOTE | 2016-07-15 18:16 | PN ---
Date/Time of Note Date/Time of Note DATE: 07/15/16 TIME: 18:15 Assessment/Plan VTE Prophylaxis VTE Prophylaxis Intervention: other Lines/Catheters [facility] Saline Lock Urinary Cath still in place: No Assessment/Plan Chief Complaint/Hosp Course IMPRESSION: 1. hx cholecystectomy 2.s/ Post-fluid collection around the liver, possible biloma. The patient has a history of pneumonia, chronic obstructive pulmonary disease, history of obesity. Patient has a history of cholecystectomy, history of appendectomy. 3 leucocytosis better 4 s/p ir drainage of abd fluid plan antibiotic ck cath drainage per surgery ck mri Problems: Subjective 24 Hr Interval Summary Respiratory: no complaints Cardiovascular: no complaints Gastrointestinal: pain (mild+) Exam/Review of Systems Vital Signs Vitals Vital Signs Date Time Temp Pulse Resp B/P Pulse Ox O2 Delivery O2 Flow Rate FiO2 07/14/16 21:00 98.0 73 18 124/59 92 07/12/16 21:50 Room Air Intake and Output 07/14/16 07/14/16 07/15/16 15:00 23:00 07:00 Intake Total 250 ml 480 ml Balance 250 ml 480 ml Exam Respiratory: clear to auscultation Cardiovascular: regular rate and rhythm Gastrointestinal: soft Results Result Diagram: 07/15/16 0415 07/15/16 0415 Results 24 hrs Laboratory Tests Test 07/14/16 21:04 07/15/16 04:15 07/15/16 07:51 07/15/16 11:47 Bedside Glucose 103 98 135 White Blood Count 9.7 Red Blood Count 4.28 Hemoglobin 11.2 L Hematocrit 35.5 L Mean Corpuscular Volume 82.9 Mean Corpuscular Hemoglobin 26.2 L Mean Corpuscular Hemoglobin Concent 31.5 L Red Cell Distribution Width 15.2 H Platelet Count 360 Mean Platelet Volume 9.1 Neutrophils % 50.5 Lymphocytes % 38.3 Monocytes % 6.3 Eosinophils % 4.2 Basophils % 0.5 Nucleated Red Blood Cells % 0.0 Neutrophils # 4.9 Lymphocytes # 3.7 H Monocytes # 0.6 Eosinophils # 0.4 Basophils # 0.1 Nucleated Red Blood Cells # 0.0 Sodium Level 137 Potassium Level 3.8 Chloride Level 101 Carbon Dioxide Level 30 Anion Gap 10 Blood Urea Nitrogen 7 Creatinine 0.45 Glucose Level 112 Calcium Level 8.5 Total Bilirubin 0.2 Direct Bilirubin 0.00 Indirect Bilirubin 0.2 Aspartate Amino Transf (AST/SGOT) 27 Alanine Aminotransferase (ALT/SGPT) 34 Alkaline Phosphatase 85 Total Protein 7.3 Albumin 3.6 Globulin 3.70 H Albumin/Globulin Ratio 0.97 Test 07/15/16 17:18 Bedside Glucose 105 Medications Medications Current Medications Hydromorphone HCl (Dilaudid) 0.25 mg Q2H PRN IV PAIN Last administered on 05:04; Admin Dose 0.25 MG; Start 07/08/16 at 20:30 Ondansetron HCl (Zofran Inj) 4 mg Q6H PRN IV NAUSEA AND/OR VOMITING Last administered on 07/15/16 18:04; Admin Dose 4 MG; Start 07/08/16 at 20:30 Acetaminophen (Tylenol Tab) 650 mg Q6H PRN PO PAIN AND OR ELEVATED TEMP; Start 07/08/16 at 20:30 Diagnostic Test (Pha) (Accu-Chek) 1 ea 02 XX ; Start 07/09/16 at 02:00 Miscellaneous Information 1 ea NOTE XX ; Start 07/08/16 at 20:30 Glucose (Glutose) 15 gm Q15M PRN PO DECREASED GLUCOSE; Start 07/08/16 at 20:30 Glucose (Glutose) 22.5 gm Q15M PRN PO DECREASED GLUCOSE; Start 07/08/16 at 20:30 Dextrose (D50w Syringe) 25 ml Q15M PRN IV DECREASED GLUCOSE; Start 07/08/16 at 20:30 Dextrose (D50w Syringe) 50 ml Q15M PRN IV DECREASED GLUCOSE; Start 07/08/16 at 20:30 Glucagon (Glucagen) 1 mg Q15M PRN IM DECREASED GLUCOSE; Start 07/08/16 at 20:30 Glucose (Glutose) 15 gm Q15M PRN BUCCAL DECREASED GLUCOSE; Start 07/08/16 at 20: 30 Alprazolam (Xanax) 2 mg BID PO Last administered on 07/15/16 09:52; Admin Dose 2 MG; Start 07/08/16 at 21:00 Sertraline HCl (Zoloft) 200 mg DAILY PO Last administered on 07/15/16 09:52; Admin Dose 200 MG; Start 07/09/16 at 09:00 Losartan Potassium (Cozaar) 25 mg DAILY@21 PO Last administered on 07/14/16 20 :53; Admin Dose 25 MG; Start 07/08/16 at 21:00 Zolpidem Tartrate (Ambien) 5 mg HS PRN PO INSOMNIA Last administered on 22:32; Admin Dose 5 MG; Start 07/08/16 at 21:00 Hydromorphone HCl (Dilaudid) 0.5 mg Q4H PRN IV PAIN; Start 07/09/16 at 19:30 Acetaminophen/ Aspirin/Caffeine 2 tab 2 tab DAILY PRN PO HEADACHE; Start at 19:30 Ceftriaxone Sodium (Rocephin) 50 ml @ 100 mls/hr Q24H IVPB Last administered on 07/14/16 20:51; Admin Dose 100 MLS/HR; Start 07/09/16 at 20:30 Hydromorphone HCl (Dilaudid) 0.75 mg Q4H PRN IV PAIN Last administered on 18:08; Admin Dose 0.75 MG; Start 07/10/16 at 19:00 Oxycodone/ Acetaminophen (Percocet (5/ 325)) 1 tab Q6H PRN PO PAIN Last administered on 07/15/16 04:32; Admin Dose 1 TAB; Start 07/11/16 at 15:45 Pantoprazole (Protonix Tab) 40 mg DAILY@06 PO Last administered on 07/15/16 05 :53; Admin Dose 40 MG; Start 07/14/16 at 06:00 JEB VAZQUEZ MD Jul 15, 2016 18:16
--- NOTE | 2016-07-15 19:52 | PN ---
DATE: 07/15/2016 SUBJECTIVE: Status post drainage of the fluid collection between the anterolateral aspect of the chest wall and the right lobe of the liver and placement of a pigtail drain percutaneously. Status post laparoscopic cholecystectomy about 2 to 3 months ago. No complaint. OBJECTIVE: VITAL SIGNS: Temperature 98, heart rate of 73; 18 respiratory rate, blood pressure 124/59, saturation 92% on room air. LABORATORY DATA: Today, blood sugar 105. Sodium, potassium normal. BUN and creatinine normal. Globulin 3.70, high. Albumin 3.6, normal. WBC 9700. Hemoglobin 11.2, hematocrit 35.5. IMAGING: MRCP was done yesterday showed: 1. Decreased size of previously identified perihepatic fluid collection with a new drainage catheter in place. 2. Biliary system is a nondilated without filling defect or choledocholithiasis. If there is a clinical concern for persistent bile leak, recommend HIDA scan. PHYSICAL EXAMINATION: The patient is alert, awake, oriented x3. Pigtail drain in place draining brownish probably more bile-alyssa looking fluid. It has drained totally 50 mL in past 24 hours. ASSESSMENT AND PLAN: I am not sure of the nature of this fluid collection around the liver. Of course, we know that after laparoscopy, she had much more fluid collection and she had a drop in the hemoglobin and hematocrit. Therefore , appeared that she had bleeding over there, which was treated conservatively, but this could be liquified hematoma and could be some kind of leakage from somewhere. I have sent request for total bilirubin, direct and indirect in the specimen from this drainage, but they have not done it in the lab here. They are sending it outside and we do not have the results yet. PLAN: Putting everything together: 1. I cannot send this patient home with the pigtail drain , while this is close to the liver and draining 50 mL per 24 hours. 2. Since the color is suspicious for bile, I am going to get a HIDA scan, though the patient had a HIDA scan 3 months ago. 3. Continue current care. Maybe later on, at the end of the week or early next week, we do repeat the CT scan to see how much more drainage is left and why it is not draining completely because on the MRCP showed still there is a collection around the liver. Maybe this is another loculation. Dictated By: BRADLY UGALDE MD PS/ARGELIA Conf#: [id number] DID#: [id number] CC: JEB VAZQUEZ MD;*EndCC* MTDD
[2016-07-15] MEDS: CEFTRIAXONE 1 GM/50 ML (PMX) 50 ML IVPB SCH (21:09)
[2016-07-15] MEDS: LOSARTAN 25 MG TAB PO SCH (21:10)
[2016-07-15 21:31] VITALS: BP 119/60; RESP 18
[2016-07-15] MEDS: ZOLPIDEM 5 MG TAB PO PRN (23:36)
[2016-07-16] MEDS: ACCU-CHEK XX SCH (02:00)
[2016-07-16] MEDS: PANTOPRAZOLE (EC) 40 MG TAB PO SCH (05:59)
[2016-07-16 07:45] VITALS: BP 105/52; RESP 20
[2016-07-16] MEDS: INSULIN ASPART [NOVOLOG] 3 ML PEN SC SCH ×4 (08:00→21:00)
[2016-07-16] MEDS: SERTRALINE 100 MG TAB PO SCH (08:38)
[2016-07-16] MEDS: ALPRAZOLAM 1 MG TAB PO SCH ×2 (08:38→21:44)
[2016-07-16] MEDS: HYDROmorphONE 1 MG/ML SYG IV PRN ×3 (12:42→20:43)
--- NOTE | 2016-07-16 13:14 | RADRPT ---
PROCEDURE: HIDA scan CLINICAL INDICATION: 35 -year-old patient with abdominal pain status post cholecystectomy. TECHNIQUE: Following the intravenous injection of 8.4 mCi of Tc-99m mebrofenin, multiple images of the abdomen were obtained up to 60 minutes post injection. COMPARISON: May 06, 2016. FINDINGS: The liver is promptly visualized, demonstrates homogeneous distribution of radionuclide. There is visualization of the common bile duct and gastrointestinal activity within normal time. The gallbladder is not visualized which is consistent with the prior cholecystectomy. IMPRESSION: 1. No definite scintigraphic evidence to suggest the presence of biliary leak. 2. No evidence of a common bile duct obstruction. 3. Nonvisualization of the gallbladder compatible with the prior cholecystectomy. RPTAT: HH .Vivien Pfeiffer MD, Date Time Electronically viewed and signed by .Vivien Pfeiffer MD, on 07/16/2016 13:14 .L/
--- NOTE | 2016-07-16 14:02 | PN ---
DATE: 07/16/2016 Status post percutaneous drainage of the collection between the liver and the abdominal wall with placement of a pigtail drain. SUBJECTIVE: Feels okay. No new complaint. Right now, she came back from nuclear medicine. She had HIDA scan but report is not available yet. OBJECTIVE VITAL SIGNS: Temperature 98.6, heart rate 80, 14 respirations, blood pressure 105/52, saturation 96% on room air. LABORATORIES: No CBC today yet. No other lab result is back yet since 6:00 a.m. today. Now, it is 1:00 p.m. Drainage from the accordion drain , which is the same as pigtail is 20 mL. It appears brownish, possible bile. We have sent the specimen to outside lab.to check for bilirubin. The result is not back yet. ASSESSMENT AND PLAN: Status post percutaneous drainage of the fluid collection between the bladder or the liver and anterolateral chest wall. Awaiting the result of the bilirubin. Awaiting the results of the HIDA scan. PLAN: Continue current care with antibiotics and other care. Dictated By: BRADLY UGALDE MD PS/NTS Conf#: [id number] DID#: [id number] CC: JEB VAZQUEZ MD;*EndCC* MTDD
[2016-07-16] MEDS: OXYCODONE/ACETAMINOPHEN (5/325) TAB PO PRN (17:50)
--- NOTE | 2016-07-16 19:32 | PN ---
Date/Time of Note Date/Time of Note DATE: 07/16/16 TIME: 19:31 Assessment/Plan VTE Prophylaxis VTE Prophylaxis Intervention: other Lines/Catheters IV [facility] Peripheral IV Urinary Cath still in place: No Assessment/Plan Chief Complaint/Hosp Course IMPRESSION: 1. hx cholecystectomy 2.s/ Post-fluid collection around the liver, possible biloma. The patient has a history of pneumonia, chronic obstructive pulmonary disease, history of obesity. Patient has a history of cholecystectomy, history of appendectomy. 3 leucocytosis better 4 s/p ir drainage of abd fluid plan antibiotic ck cath drainage per surgery hida neg Problems: Subjective 24 Hr Interval Summary Subjective hx not possible: other (hida neg) Exam/Review of Systems Vital Signs Vitals Vital Signs Date Time Temp Pulse Resp B/P Pulse Ox O2 Delivery O2 Flow Rate FiO2 07/16/16 07:45 98.6 76 20 105/52 96 07/12/16 21:50 Room Air Intake and Output 07/15/16 07/15/16 07/16/16 15:00 23:00 07:00 Intake Total 4050 ml 300 ml Output Total 30 ml 10 ml Balance 4020 ml 290 ml Exam Neck: supple Respiratory: clear to auscultation Cardiovascular: regular rate and rhythm Gastrointestinal: bowel sounds (+), soft Results Result Diagram: 07/15/16 0415 07/15/16 0415 Results 24 hrs Laboratory Tests Test 07/15/16 21:16 07/16/16 08:35 07/16/16 12:22 07/16/16 17:49 Bedside Glucose 95 93 101 134 Medications Medications Current Medications Hydromorphone HCl (Dilaudid) 0.25 mg Q2H PRN IV PAIN Last administered on 05:04; Admin Dose 0.25 MG; Start 07/08/16 at 20:30 Ondansetron HCl (Zofran Inj) 4 mg Q6H PRN IV NAUSEA AND/OR VOMITING Last administered on 07/15/16 18:04; Admin Dose 4 MG; Start 07/08/16 at 20:30 Acetaminophen (Tylenol Tab) 650 mg Q6H PRN PO PAIN AND OR ELEVATED TEMP; Start 07/08/16 at 20:30 Diagnostic Test (Pha) (Accu-Chek) 1 ea 02 XX ; Start 07/09/16 at 02:00 Miscellaneous Information 1 ea NOTE XX ; Start 07/08/16 at 20:30 Glucose (Glutose) 15 gm Q15M PRN PO DECREASED GLUCOSE; Start 07/08/16 at 20:30 Glucose (Glutose) 22.5 gm Q15M PRN PO DECREASED GLUCOSE; Start 07/08/16 at 20:30 Dextrose (D50w Syringe) 25 ml Q15M PRN IV DECREASED GLUCOSE; Start 07/08/16 at 20:30 Dextrose (D50w Syringe) 50 ml Q15M PRN IV DECREASED GLUCOSE; Start 07/08/16 at 20:30 Glucagon (Glucagen) 1 mg Q15M PRN IM DECREASED GLUCOSE; Start 07/08/16 at 20:30 Glucose (Glutose) 15 gm Q15M PRN BUCCAL DECREASED GLUCOSE; Start 07/08/16 at 20: 30 Alprazolam (Xanax) 2 mg BID PO Last administered on 07/16/16 08:38; Admin Dose 2 MG; Start 07/08/16 at 21:00 Sertraline HCl (Zoloft) 200 mg DAILY PO Last administered on 07/16/16 08:38; Admin Dose 200 MG; Start 07/09/16 at 09:00 Losartan Potassium (Cozaar) 25 mg DAILY@21 PO Last administered on 07/15/16 21 :10; Admin Dose 25 MG; Start 07/08/16 at 21:00 Zolpidem Tartrate (Ambien) 5 mg HS PRN PO INSOMNIA Last administered on 23:36; Admin Dose 5 MG; Start 07/08/16 at 21:00 Hydromorphone HCl (Dilaudid) 0.5 mg Q4H PRN IV PAIN; Start 07/09/16 at 19:30 Acetaminophen/ Aspirin/Caffeine 2 tab 2 tab DAILY PRN PO HEADACHE; Start at 19:30 Ceftriaxone Sodium (Rocephin) 50 ml @ 100 mls/hr Q24H IVPB Last administered on 07/15/16 21:09; Admin Dose 100 MLS/HR; Start 07/09/16 at 20:30 Hydromorphone HCl (Dilaudid) 0.75 mg Q4H PRN IV PAIN Last administered on 16:39; Admin Dose 0.75 MG; Start 07/10/16 at 19:00 Oxycodone/ Acetaminophen (Percocet (5/ 325)) 1 tab Q6H PRN PO PAIN Last administered on 07/16/16 17:50; Admin Dose 1 TAB; Start 07/11/16 at 15:45 Pantoprazole (Protonix Tab) 40 mg DAILY@06 PO Last administered on 07/15/16 05 :53; Admin Dose 40 MG; Start 07/14/16 at 06:00 JEB VAZQUEZ MD Jul 16, 2016 19:32
[2016-07-16 20:35] VITALS: BP 124/59; RESP 20
[2016-07-16] MEDS: CEFTRIAXONE 1 GM/50 ML (PMX) 50 ML IVPB SCH (21:43)
[2016-07-16] MEDS: LOSARTAN 25 MG TAB PO SCH (21:44)
[2016-07-17] MEDS: HYDROmorphONE 1 MG/ML SYG IV PRN ×6 (00:34→20:46)
[2016-07-17] MEDS: ONDANSETRON 4 MG INJ IV PRN ×2 (00:39→08:46)
[2016-07-17] MEDS: ZOLPIDEM 5 MG TAB PO PRN (00:46)
[2016-07-17] MEDS: ACCU-CHEK XX SCH (01:56)
[2016-07-17] MEDS: OXYCODONE/ACETAMINOPHEN (5/325) TAB PO PRN ×2 (02:04→17:40)
[2016-07-17] MEDS: PANTOPRAZOLE (EC) 40 MG TAB PO SCH (06:00)
[2016-07-17 08:00] VITALS: BP 117/56; RESP 16
[2016-07-17] MEDS: INSULIN ASPART [NOVOLOG] 3 ML PEN SC SCH ×4 (08:00→19:56)
[2016-07-17] MEDS: ALPRAZOLAM 1 MG TAB PO SCH ×2 (08:07→20:00)
[2016-07-17] MEDS: SERTRALINE 100 MG TAB PO SCH (08:07)
--- NOTE | 2016-07-17 16:13 | PN ---
Date/Time of Note Date/Time of Note DATE: 07/17/16 TIME: 16:10 Assessment/Plan VTE Prophylaxis VTE Prophylaxis Intervention: other Lines/Catheters IV [facility] Type (from [facility]): Saline Lock Urinary Cath still in place: No Assessment/Plan Chief Complaint/Hosp Course IMPRESSION: 1. hx cholecystectomy 2.s/ Post-fluid collection around the liver, possible biloma. The patient has a history of pneumonia, chronic obstructive pulmonary disease, history of obesity. Patient has a history of cholecystectomy, history of appendectomy. 3 leucocytosis better 4 s/p ir drainage of abd fluid plan antibiotic ck cath drainage per surgery hida neg per dr martin Problems: Subjective 24 Hr Interval Summary Respiratory: no complaints Cardiovascular: no complaints Exam/Review of Systems Vital Signs Vitals Vital Signs Date Time Temp Pulse Resp B/P Pulse Ox O2 Delivery O2 Flow Rate FiO2 07/17/16 08:00 98.3 16 117/56 98 Room Air 07/16/16 20:35 77 Intake and Output 07/16/16 07/16/16 07/17/16 15:00 23:00 07:00 Intake Total 530 ml 720 ml Output Total 35 ml Balance 495 ml 720 ml Exam Respiratory: clear to auscultation Cardiovascular: regular rate and rhythm Gastrointestinal: bowel sounds (+), soft Extremities: normal pulses Results Result Diagram: 07/15/16 0415 07/15/16 0415 Results 24 hrs Laboratory Tests Test 07/16/16 17:49 07/16/16 21:38 07/17/16 07:59 07/17/16 11:28 Bedside Glucose 134 90 107 122 Medications Medications Current Medications Hydromorphone HCl (Dilaudid) 0.25 mg Q2H PRN IV PAIN Last administered on 05:04; Admin Dose 0.25 MG; Start 07/08/16 at 20:30 Ondansetron HCl (Zofran Inj) 4 mg Q6H PRN IV NAUSEA AND/OR VOMITING Last administered on 07/17/16 08:46; Admin Dose 4 MG; Start 07/08/16 at 20:30 Acetaminophen (Tylenol Tab) 650 mg Q6H PRN PO PAIN AND OR ELEVATED TEMP; Start 07/08/16 at 20:30 Diagnostic Test (Pha) (Accu-Chek) 1 ea 02 XX ; Start 07/09/16 at 02:00 Miscellaneous Information 1 ea NOTE XX ; Start 07/08/16 at 20:30 Glucose (Glutose) 15 gm Q15M PRN PO DECREASED GLUCOSE; Start 07/08/16 at 20:30 Glucose (Glutose) 22.5 gm Q15M PRN PO DECREASED GLUCOSE; Start 07/08/16 at 20:30 Dextrose (D50w Syringe) 25 ml Q15M PRN IV DECREASED GLUCOSE; Start 07/08/16 at 20:30 Dextrose (D50w Syringe) 50 ml Q15M PRN IV DECREASED GLUCOSE; Start 07/08/16 at 20:30 Glucagon (Glucagen) 1 mg Q15M PRN IM DECREASED GLUCOSE; Start 07/08/16 at 20:30 Glucose (Glutose) 15 gm Q15M PRN BUCCAL DECREASED GLUCOSE; Start 07/08/16 at 20: 30 Alprazolam (Xanax) 2 mg BID PO Last administered on 07/17/16 08:07; Admin Dose 2 MG; Start 07/08/16 at 21:00 Sertraline HCl (Zoloft) 200 mg DAILY PO Last administered on 07/17/16 08:07; Admin Dose 200 MG; Start 07/09/16 at 09:00 Losartan Potassium (Cozaar) 25 mg DAILY@21 PO Last administered on 07/16/16 21 :44; Admin Dose 25 MG; Start 07/08/16 at 21:00 Zolpidem Tartrate (Ambien) 5 mg HS PRN PO INSOMNIA Last administered on 00:46; Admin Dose 5 MG; Start 07/08/16 at 21:00 Hydromorphone HCl (Dilaudid) 0.5 mg Q4H PRN IV PAIN; Start 07/09/16 at 19:30 Acetaminophen/ Aspirin/Caffeine 2 tab 2 tab DAILY PRN PO HEADACHE; Start at 19:30 Ceftriaxone Sodium (Rocephin) 50 ml @ 100 mls/hr Q24H IVPB Last administered on 07/16/16 21:43; Admin Dose 100 MLS/HR; Start 07/09/16 at 20:30 Hydromorphone HCl (Dilaudid) 0.75 mg Q4H PRN IV PAIN Last administered on 12:50; Admin Dose 0.75 MG; Start 07/10/16 at 19:00 Oxycodone/ Acetaminophen (Percocet (5/ 325)) 1 tab Q6H PRN PO PAIN Last administered on 07/17/16 02:04; Admin Dose 1 TAB; Start 07/11/16 at 15:45 Pantoprazole (Protonix Tab) 40 mg DAILY@06 PO Last administered on 07/15/16 05 :53; Admin Dose 40 MG; Start 07/14/16 at 06:00 JEB VAZQUEZ MD Jul 17, 2016 16:13
--- NOTE | 2016-07-17 16:16 | PN ---
Date/Time of Note Date/Time of Note DATE: 07/17/16 TIME: 16:15 Assessment/Plan VTE Prophylaxis VTE Prophylaxis Intervention: other Lines/Catheters IV Catheter Type (from [facility]): Saline Lock Urinary Cath still in place: No Assessment/Plan Chief Complaint/Hosp Course IMPRESSION: 1. hx cholecystectomy 2.s/ Post-fluid collection around the liver, possible biloma. The patient has a history of pneumonia, chronic obstructive pulmonary disease, history of obesity. Patient has a history of cholecystectomy, history of appendectomy. 3 leucocytosis better 4 s/p ir drainage of abd fluid plan antibiotic ck cath drainage per surgery hida neg per dr martin Problems: Subjective 24 Hr Interval Summary Gastrointestinal: nausea (per rn) Exam/Review of Systems Vital Signs Vitals Vital Signs Date Time Temp Pulse Resp B/P Pulse Ox O2 Delivery O2 Flow Rate FiO2 07/17/16 08:00 98.3 16 117/56 98 Room Air 07/16/16 20:35 77 Intake and Output 07/16/16 07/16/16 07/17/16 15:00 23:00 07:00 Intake Total 530 ml 720 ml Output Total 35 ml Balance 495 ml 720 ml Exam Neck: supple Respiratory: clear to auscultation Cardiovascular: regular rate and rhythm Gastrointestinal: other (drainage cath +), soft Musculoskeletal: nl extremities to inspection Results Result Diagram: 07/15/16 0415 07/15/16 0415 Results 24 hrs Laboratory Tests Test 07/16/16 17:49 07/16/16 21:38 07/17/16 07:59 07/17/16 11:28 Bedside Glucose 134 90 107 122 Medications Medications Current Medications Hydromorphone HCl (Dilaudid) 0.25 mg Q2H PRN IV PAIN Last administered on 05:04; Admin Dose 0.25 MG; Start 07/08/16 at 20:30 Ondansetron HCl (Zofran Inj) 4 mg Q6H PRN IV NAUSEA AND/OR VOMITING Last administered on 07/17/16 08:46; Admin Dose 4 MG; Start 07/08/16 at 20:30 Acetaminophen (Tylenol Tab) 650 mg Q6H PRN PO PAIN AND OR ELEVATED TEMP; Start 07/08/16 at 20:30 Diagnostic Test (Pha) (Accu-Chek) 1 ea 02 XX ; Start 07/09/16 at 02:00 Miscellaneous Information 1 ea NOTE XX ; Start 07/08/16 at 20:30 Glucose (Glutose) 15 gm Q15M PRN PO DECREASED GLUCOSE; Start 07/08/16 at 20:30 Glucose (Glutose) 22.5 gm Q15M PRN PO DECREASED GLUCOSE; Start 07/08/16 at 20:30 Dextrose (D50w Syringe) 25 ml Q15M PRN IV DECREASED GLUCOSE; Start 07/08/16 at 20:30 Dextrose (D50w Syringe) 50 ml Q15M PRN IV DECREASED GLUCOSE; Start 07/08/16 at 20:30 Glucagon (Glucagen) 1 mg Q15M PRN IM DECREASED GLUCOSE; Start 07/08/16 at 20:30 Glucose (Glutose) 15 gm Q15M PRN BUCCAL DECREASED GLUCOSE; Start 07/08/16 at 20: 30 Alprazolam (Xanax) 2 mg BID PO Last administered on 07/17/16 08:07; Admin Dose 2 MG; Start 07/08/16 at 21:00 Sertraline HCl (Zoloft) 200 mg DAILY PO Last administered on 07/17/16 08:07; Admin Dose 200 MG; Start 07/09/16 at 09:00 Losartan Potassium (Cozaar) 25 mg DAILY@21 PO Last administered on 07/16/16 21 :44; Admin Dose 25 MG; Start 07/08/16 at 21:00 Zolpidem Tartrate (Ambien) 5 mg HS PRN PO INSOMNIA Last administered on 00:46; Admin Dose 5 MG; Start 07/08/16 at 21:00 Hydromorphone HCl (Dilaudid) 0.5 mg Q4H PRN IV PAIN; Start 07/09/16 at 19:30 Acetaminophen/ Aspirin/Caffeine 2 tab 2 tab DAILY PRN PO HEADACHE; Start at 19:30 Ceftriaxone Sodium (Rocephin) 50 ml @ 100 mls/hr Q24H IVPB Last administered on 07/16/16 21:43; Admin Dose 100 MLS/HR; Start 07/09/16 at 20:30 Hydromorphone HCl (Dilaudid) 0.75 mg Q4H PRN IV PAIN Last administered on 4/13/ 17at 12:50; Admin Dose 0.75 MG; Start 07/10/16 at 19:00 Oxycodone/ Acetaminophen (Percocet (5/ 325)) 1 tab Q6H PRN PO PAIN Last administered on 07/17/16 02:04; Admin Dose 1 TAB; Start 07/11/16 at 15:45 Pantoprazole (Protonix Tab) 40 mg DAILY@06 PO Last administered on 07/15/16 05 :53; Admin Dose 40 MG; Start 07/14/16 at 06:00 JEB VAZQUEZ MD Jul 17, 2016 16:16
[2016-07-17 17:00] VITALS: BP 111/56; RESP 16
--- NOTE | 2016-07-17 17:53 | CONS ---
DATE OF ADMISSION: 07/08/2016 DATE OF CONSULTATION: 07/17/2016 TYPE OF CONSULTATION: Infectious Disease. REASON FOR CONSULTATION: Antibiotic management. HISTORY OF PRESENT ILLNESS: Toshia Perdomo is a 36-year-old female with a number of problems who come s in with fluid around her liver and is being seen for antibiotic management. Her past problems inc lude: 1. Status post cholecystectomy. 2. Status post systemic inflammatory response syndrome. 3. Anemia. 4. Obesity. 5. Leukocytosis. The patient had a postoperative fluid collection of the liver, was seen by Dr. Dixon as an outpatien t. An MRI scan of the abdomen was done which showed biloma. She was seen in the emergency room at [place] and was transferred to [facility] for further care. A CT scan of the abdomen an d pelvis without contrast shows cholecystectomy, large fluid collection was seen between the right a nterior abdominal wall and the liver which was nonspecific. PAST MEDICAL HISTORY: Operations as outlined. Status post cholecystectomy, status post appendectom y, status post right ankle surgery. FAMILY HISTORY: Noncontributory. SOCIAL HISTORY: She does not smoke, drink or abuse drugs. ALLERGIES: NONE TO PENICILLIN, SULFA OR FOODS. MEDICATIONS: Per chart. REVIEW OF SYSTEMS: As per HPI. PHYSICAL EXAMINATION: GENERAL: The patient is an obese female who is alert, responsive, in no acute distress. VITAL SIGNS: Stable. She is afebrile. SKIN: Without generalized rash. HEENT: Within normal limits. NECK: Supple. LYMPH NODES: None palpable. CHEST: Decreased breath sounds at the bases. HEART: Without murmur or gallop. ABDOMEN: Soft, nontender, without organosplenomegaly or masses. EXTREMITIES: Without cyanosis, clubbing or edema. RECTAL AND GENITAL: Deferred. NEUROLOGIC: No focal neurological abnormality. HOSPITAL COURSE: On admission, her white count was 12.7, H and H 11.7 and 37.3, platelet count of 3 44,000. On the , her white count was 9.7. Her BUN and creatinine are 7/0.45. She had a parace ntesis of 35 mL, was dark brown bloody, was only 157 white cells in the fluid. The cultures: Wound culture, no organisms seen. Anaerobic culture, no organisms seen. The patient had as noted absces s drainage under CT guidance with placement of a drainage catheter and right upper quadrant fluid co llection. An abdominal MRI was done on the which showed decreased size of previously identifie d perihepatic fluid collection with the new drainage catheter in place, biliary system is nondilated without filling defect of choledocholithiasis. Recommend a HIDA scan. The HIDA scan showed no def inite scintigraphic evidence to suggest the presence of biliary leak. No evidence of common bile du ct obstruction. Nonvisualization of the gallbladder comparable with the prior cholecystectomy. IMPRESSION AND PLAN: The patient is currently on antibiotic therapy in the form of ceftriaxone. I am going to discontinue antibiotic therapy. I will dictate my findings to Dr. Lange and to Dr. Anjana agee. Dictated By: DALTON JONES MD, JD/ARGELIA Conf#: [id number] DID#: [id number]
[2016-07-17] MEDS: LOSARTAN 25 MG TAB PO SCH (20:00)
[2016-07-17] MEDS ORDERED: BARIUM SULF 2% 450 ML BTL (BERRY SMOOTHIE) PO ONE (20:30)
[2016-07-17 21:45] VITALS: BP 113/56; RESP 16
[2016-07-18] MEDS: ACCU-CHEK XX SCH (00:22)
[2016-07-18] MEDS: HYDROmorphONE 1 MG/ML SYG IV PRN ×6 (00:39→23:45)
[2016-07-18] MEDS: PANTOPRAZOLE (EC) 40 MG TAB PO SCH (04:33)
[2016-07-18] MEDS: ONDANSETRON 4 MG INJ IV PRN ×3 (05:10→23:52)
--- NOTE | 2016-07-18 05:32 | PN ---
DATE: 07/17/2016 SUBJECTIVE: The patient states that she cannot tolerate solid diet and she vomits and she is nauseous all the time. No fevers. Bowel movement okay. OBJECTIVE: VITAL SIGNS: Temperature 98.9. Heart rate 77. Respirations 16. Blood pressure 111/56. Saturation 98%, room air. LABORATORIES TODAY: Not done. Chemistry: Blood sugar 103. ASSESSMENT AND PLAN: The MRI was reviewed with Dr. Saeed to evaluate for the reason that still there is fluid between the liver and the chest wall while still the pigtail drain is there and it's actually draining. In the past 24 hours has drained 40 mL. He recommended to get a CT scan of the abdomen and chest to re-evaluate possible second loculation. Also, the report of the bilirubin is back from the fluid that we sent to the lab outside of the hospital and is 7.5 mg/dL, which is positive, so will get tomorrow a CT scan of the abdomen and pelvis with oral contrast to evaluate for 2 reasons. One, for cause of nausea and vomiting possibly, and second, persistence of any loculation besides the one which is being drained by pigtail catheter. Then we may request GI colleagues to see the patient for any other reason that patient may have for presence of bilirubin in this fluid which has drained from the peritoneal cavity. Dictated By: BRADLY CORTES/ARGELIA Conf#: [id number] DID#: [id number] MTDD
[2016-07-18 07:11] LABS: ADD SCAN DIFF NO
[2016-07-18 07:23] LABS: BASOPHIL # 0.1 10^3/ul (0.0-0.1); BASOPHILS % 0.5 % (0.0-2.0); EOSINOPHILS # 0.5 10^3/ul (0.0-0.5); EOSINOPHILS % 4.2 % (0.0-7.0); HEMATOCRIT 36.2 % (37.0-47.0); HEMOGLOBIN 11.5 g/dl (12.0-16.0); LYMPHOCYTES # 4.2 10^3/ul (0.8-2.9); MEAN CORPUSCULAR HEMOGLOBIN 26.3 pg (29.0-33.0); MEAN CORPUSCULAR HGB CONC 31.8 g/dl (32.0-37.0); MEAN CORPUSCULAR VOLUME 82.8 fl (82.0-101.0); MONOCYTE # 0.7 10^3/ul (0.3-0.9); MONOCYTES % 6.5 % (0.0-11.0); NEUTROPHIL # 5.4 10^3/ul (1.6-7.5); NEUTROPHILS % 49.5 % (39.0-77.0); PLATELET COUNT 384 10^3/UL (140-415); RED BLOOD COUNT 4.37 10^6/ul (4.20-5.40); RED CELL DISTRIBUTION WIDTH 14.7 % (11.5-14.5); WHITE BLOOD COUNT 10.8 10^3/ul (4.8-10.8)
[2016-07-18 07:30] VITALS: BP 91/55; RESP 18
[2016-07-18] MEDS: INSULIN ASPART [NOVOLOG] 3 ML PEN SC SCH ×4 (07:39→21:00)
[2016-07-18 07:56] LABS: ALBUMIN 3.7 g/dl (3.3-4.9); ALBUMIN/GLOBULIN RATIO 0.97; CALCIUM 8.4 mg/dl (8.4-10.2); CREATININE 0.49 mg/dl (0.44-1.00); POTASSIUM 3.8 mmol/L (3.5-5.1); TOTAL PROTEIN 7.5 g/dl (6.1-8.1)
[2016-07-18] MEDS: ALPRAZOLAM 1 MG TAB PO SCH ×2 (08:35→17:17)
[2016-07-18] MEDS: SERTRALINE 100 MG TAB PO SCH ×2 (08:36→17:05)
[2016-07-18] MEDS ORDERED: IOHEXOL 300MG/ML 30 ML BTL ONE ×3 (09:29→16:24)
[2016-07-18 10:14] VITALS: BP 105/52; PULSE 73
[2016-07-18] MEDS ORDERED: D5W-0.45 NACL + KCL 20 MEQ 1,000 ML IV SCH (14:00)
--- NOTE | 2016-07-18 15:17 | PN ---
Date/Time of Note Date/Time of Note DATE: 07/18/16 TIME: 15:16 Assessment/Plan VTE Prophylaxis VTE Prophylaxis Intervention: other Lines/Catheters IV Catheter Type (from [facility]): [place] Urinary Cath still in place: No Assessment/Plan Chief Complaint/Hosp Course IMPRESSION: 1. hx cholecystectomy 2.s/ Post-fluid collection around the liver, possible biloma. The patient has a history of pneumonia, chronic obstructive pulmonary disease, history of obesity. Patient has a history of cholecystectomy, history of appendectomy. 3 leucocytosis better 4 s/p ir drainage of abd fluid plan antibiotic ck cath drainage per surgery hida neg per dr veronica maddox to see Problems: Subjective 24 Hr Interval Summary Respiratory: no complaints Cardiovascular: no complaints Gastrointestinal: no complaints, pain (better) Exam/Review of Systems Vital Signs Vitals Vital Signs Date Time Temp Pulse Resp B/P Pulse Ox O2 Delivery O2 Flow Rate FiO2 07/18/16 10:14 73 105/52 07/18/16 08:13 97.6 07/18/16 07:30 18 93 07/17/16 17:00 Room Air Intake and Output 07/17/16 07/17/16 07/18/16 15:00 23:00 07:00 Intake Total 600 ml 480 ml Output Total 40 ml 15 ml Balance 560 ml 465 ml Exam Neck: supple Respiratory: clear to auscultation Cardiovascular: regular rate and rhythm Gastrointestinal: soft Musculoskeletal: nl extremities to inspection Results Result Diagram: 07/18/16 0644 07/18/16 0644 Results 24 hrs Laboratory Tests Test 07/17/16 16:33 07/17/16 19:55 07/18/16 06:44 07/18/16 07:35 Bedside Glucose 137 103 103 White Blood Count 10.8 Red Blood Count 4.37 Hemoglobin 11.5 L Hematocrit 36.2 L Mean Corpuscular Volume 82.8 Mean Corpuscular Hemoglobin 26.3 L Mean Corpuscular Hemoglobin Concent 31.8 L Red Cell Distribution Width 14.7 H Platelet Count 384 Mean Platelet Volume 9.0 Neutrophils % 49.5 Lymphocytes % 39.0 Monocytes % 6.5 Eosinophils % 4.2 Basophils % 0.5 Nucleated Red Blood Cells % 0.0 Neutrophils # 5.4 Lymphocytes # 4.2 H Monocytes # 0.7 Eosinophils # 0.5 Basophils # 0.1 Nucleated Red Blood Cells # 0.0 Sodium Level 137 Potassium Level 3.8 Chloride Level 104 Carbon Dioxide Level 29 Anion Gap 8 Blood Urea Nitrogen 10 Creatinine 0.49 Glucose Level 109 Calcium Level 8.4 Total Bilirubin 0.0 L Direct Bilirubin 0.00 Indirect Bilirubin 0.0 Aspartate Amino Transf (AST/SGOT) 23 Alanine Aminotransferase (ALT/SGPT) 29 Alkaline Phosphatase 93 Total Protein 7.5 Albumin 3.7 Globulin 3.80 H Albumin/Globulin Ratio 0.97 Test 07/18/16 10:00 07/18/16 11:16 Urine Test NEGATIVE Bedside Glucose 96 Medications Medications Current Medications Hydromorphone HCl (Dilaudid) 0.25 mg Q2H PRN IV PAIN Last administered on 05:04; Admin Dose 0.25 MG; Start 07/08/16 at 20:30 Ondansetron HCl (Zofran Inj) 4 mg Q6H PRN IV NAUSEA AND/OR VOMITING Last administered on 07/18/16 05:10; Admin Dose 4 MG; Start 07/08/16 at 20:30 Acetaminophen (Tylenol Tab) 650 mg Q6H PRN PO PAIN AND OR ELEVATED TEMP; Start 07/08/16 at 20:30 Diagnostic Test (Pha) (Accu-Chek) 1 ea 02 XX ; Start 07/09/16 at 02:00 Miscellaneous Information 1 ea NOTE XX ; Start 07/08/16 at 20:30 Glucose (Glutose) 15 gm Q15M PRN PO DECREASED GLUCOSE; Start 07/08/16 at 20:30 Glucose (Glutose) 22.5 gm Q15M PRN PO DECREASED GLUCOSE; Start 07/08/16 at 20:30 Dextrose (D50w Syringe) 25 ml Q15M PRN IV DECREASED GLUCOSE; Start 07/08/16 at 20:30 Dextrose (D50w Syringe) 50 ml Q15M PRN IV DECREASED GLUCOSE; Start 07/08/16 at 20:30 Glucagon (Glucagen) 1 mg Q15M PRN IM DECREASED GLUCOSE; Start 07/08/16 at 20:30 Glucose (Glutose) 15 gm Q15M PRN BUCCAL DECREASED GLUCOSE; Start 07/08/16 at 20: 30 Alprazolam (Xanax) 2 mg BID PO Last administered on 07/17/16 20:00; Admin Dose 2 MG; Start 07/08/16 at 21:00 Sertraline HCl (Zoloft) 200 mg DAILY PO Last administered on 07/17/16 08:07; Admin Dose 200 MG; Start 07/09/16 at 09:00 Losartan Potassium (Cozaar) 25 mg DAILY@21 PO Last administered on 07/17/16 20 :00; Admin Dose 25 MG; Start 07/08/16 at 21:00 Zolpidem Tartrate (Ambien) 5 mg HS PRN PO INSOMNIA Last administered on 00:46; Admin Dose 5 MG; Start 07/08/16 at 21:00 Hydromorphone HCl (Dilaudid) 0.5 mg Q4H PRN IV PAIN; Start 07/09/16 at 19:30 Acetaminophen/ Aspirin/Caffeine (Excedrin) 2 tab DAILY PRN PO HEADACHE; Start 07/09/16 at 19:30 Hydromorphone HCl (Dilaudid) 0.75 mg Q4H PRN IV PAIN Last administered on 10:34; Admin Dose 0.75 MG; Start 07/10/16 at 19:00 Oxycodone/ Acetaminophen (Percocet (5/ 325)) 1 tab Q6H PRN PO PAIN Last administered on 07/17/16 17:40; Admin Dose 1 TAB; Start 07/11/16 at 15:45 Pantoprazole 40 mg 40 mg DAILY@06 PO Last administered on 07/15/16 05:53; Admin Dose 40 MG; Start 07/14/16 at 06:00 Potassium Chloride/Dextrose/ Sod Cl (D5-1/2ns + KCl 20 Meq) 1,000 ml @ 100 mls/ hr Q10H IV Last administered on 07/18/16 13:58; Admin Dose 100 MLS/HR; Start 07/18/16 at 14:00 JEB VAZQUEZ MD Jul 18, 2016 15:17
--- NOTE | 2016-07-18 16:37 | PN ---
DATE: 07/18/2016 SUBJECTIVE: No acute changes. Patient is alert, feels good, looks comfortable. Denies pain, disco mfort. No fevers. She is off antibiotics. PHYSICAL EXAMINATION GENERAL: Morbidly obese, middle-aged, woman who is alert, in no distress. HEENT: Head atraumatic, normocephalic. Sclerae are anicteric. Buccal mucosa dry. NECK: Supple. CHEST: Rise symmetrical. Breath sounds clear. HEART: S1, S2. ABDOMEN: Soft, bowel tones present. EXTREMITIES: Without cyanosis. SKIN: No jaundice, no cyanosis. ASSESSMENT 1. Status post CT-guided aspiration of intraabdominal fluid on 07/10/2016, fluid cultures negative. 2. Morbid obesity. 3. History of cholecystectomy. 4. Status post systemic inflammatory response syndrome. PLAN: The patient remains stable off antibiotics. Surgery on case. Continue present care. Pancul ture p.r.n. Dictated By: ABNER BALL CENTERLESS GRINDER OPERATOR for DALTON LOPEZ/ARGELIA Conf#: [id number] DID#: [id number]
[2016-07-18] MEDS: OXYCODONE/ACETAMINOPHEN (5/325) TAB PO PRN (17:01)
--- NOTE | 2016-07-18 17:33 | RADRPT ---
PROCEDURE: Right upper quadrant sinogram with fluoroscopy. CLINICAL INDICATION: Right upper quadrant fluid collection. TECHNIQUE: 6 images of the right upper quadrant were obtained with fluoroscopic guidance. Injecti on of 60 ml of Omnipaque-300 into the catheter in the right upper quadrant fluid collection. 0.2 mi nutes of fluoroscopy time was used. COMPARISON: CT scan of the abdomen and pelvis done earlier the same day. FINDINGS: The catheter is in satisfactory position within the fluid collection in the right upper quadrant. T he fluid collection measures approximately 6.7 x 4.2 cm in cranial caudal and transverse dimensions. On the CT scan, the fluid collection is larger indicating it is probably loculated. IMPRESSION: 1. Catheter in satisfactory position within the fluid collection in the right upper quadrant measur ing 6.7 x 4.[address] scan, the fluid collection is larger indicating it is probably loculate d. RPTAT: QQ .Mao Saeed MD, MD Date Time Electronically viewed and signed by .Mao Saeed MD, on 07/18/2016 17:32 .R/
[2016-07-18 19:45] VITALS: BP 133/80; PULSE 78; RESP 18
--- NOTE | 2016-07-18 20:27 | RADRPT ---
PROCEDURE: CT Abdomen and Pelvis without contrast. CLINICAL INDICATION: Abdominal and pelvic pain. Right upper quadrant abdomen fluid collection. TECHNIQUE: CT scan of the abdomen and pelvis without contrast was performed. Coronal and sagittal reformatted images were obtained from the axial source images. Images were reviewed on a [employer] PACS workstation. Total exam DLP is 1606.97 mGy-cm. CTDIvol is 23.81 mGy. One or more of the following dose reduction techniques were used: Automated exposure control, adjustment of the mA and/ or kV according to patient size, use of iterative reconstruction technique. COMPARISON: Images from CT scan guided drainage of the right upper quadrant fluid collection dated 07/10/2016. FINDINGS: There is mild atelectasis at the right lung base. The lung bases are otherwise normal. There is no pleural effusion or pericardial effusion. The heart size is normal. The liver is normal in size and attenuation. There is no focal hepatic lesion. The gallbladder is surgically absent with clips noted in the gallbladder bed. The bile ducts are no rmal. There is a drainage catheter in the fluid collection in the right upper quadrant lateral to t he liver inferiorly. The fluid collection measures approximately 10.0 x 4.4 x 9.2 cm in AP, transve rse, and cranial caudal dimensions. There is no other abnormal fluid collection or mass. The spleen is normal in size. There is no focal splenic lesion. Both adrenals are normal with no enlargement or mass. The pancreas is unremarkable with no mass or evidence of pancreatitis. There is no renal mass or hydronephrosis. There is no renal calculus or ureteral calculus. The abdominal aorta is not dilated. There is no retroperitoneal lymphadenopathy or mass. There is no pelvic lymphadenopathy or mass. The bladder and distal ureters are normal. The periappendiceal region is unremarkable with no evidence of appendicitis. The bowel and mesentery are normal. There is no free fluid or free gas. The osseous structures are unremarkable with no fracture or lytic lesion. IMPRESSION: 1. Mild atelectasis at the right lung base. 2. Status post cholecystectomy. 3. Fluid collection lateral to the liver, smaller than seen previously. The drainage catheter is i n satisfactory position within the fluid collection. 4. Otherwise unremarkable noncontrast CT scan of the abdomen and pelvis. Call report: A call report of the findings was made to Dr. Georges on 07/18/2016 at 1330 hours. RPTAT: QQ .Mao Saeed MD, MD Date Time Electronically viewed and signed by .Mao Saeed MD, MD on 07/18/2016 20:27 .R/
[2016-07-18] MEDS: LOSARTAN 25 MG TAB PO SCH (21:04)
[2016-07-18 21:12] VITALS: BP 133/80; RESP 18
[2016-07-19] VITALS (19 sets, daily range): BP systolic 95–139; BP diastolic 44–68; PULSE 74–91; RESP 13–22
[2016-07-19] MEDS: ZOLPIDEM 5 MG TAB PO PRN (01:11)
[2016-07-19] MEDS: ACCU-CHEK XX SCH (02:00)
[2016-07-19] MEDS: HYDROmorphONE 1 MG/ML SYG IV PRN ×4 (03:35→21:46)
[2016-07-19] MEDS: PANTOPRAZOLE (EC) 40 MG TAB PO SCH (05:13)
[2016-07-19] MEDS: INSULIN ASPART [NOVOLOG] 3 ML PEN SC SCH ×4 (07:54→21:00)
[2016-07-19] MEDS: SERTRALINE 100 MG TAB PO SCH (08:05)
[2016-07-19] MEDS: ALPRAZOLAM 1 MG TAB PO SCH ×2 (08:05→21:37)
--- NOTE | 2016-07-19 09:56 | HPN ---
Date/Time of Note Date/Time of Note DATE: 07/19/16 TIME: 09:56 Interval H&P Admission Note Pt. seen H&P reviewed: No system changes JESUS AGUILAR MD Jul 19, 2016 09:56
[2016-07-19] MEDS ORDERED: INDOMETHACIN 50 MG SUPP PR ONE (10:00)
[2016-07-19] MEDS ORDERED: IOHEXOL 300MG/ML 30 ML BTL ONE (10:08)
[2016-07-19] MEDS ORDERED: SUCCINYLCHOLINE CHLORIDE 100 MG/5 ML SYG IV ONE (10:14)
[2016-07-19] MEDS ORDERED: FENTAnyl 50 MCG/ML VIAL ONE (10:14)
[2016-07-19] MEDS ORDERED: LIDOCAINE 2% (SDV) 5 ML INJ ONE (10:14)
[2016-07-19] MEDS ORDERED: PROPOFOL 20 ML ONE (10:14)
[2016-07-19] MEDS ORDERED: MIDAZOLAM 1 MG/ML 2 ML INJ ONE (10:15)
--- NOTE | 2016-07-19 10:26 | CONS ---
DATE OF ADMISSION: 07/08/2016 DATE OF CONSULTATION: 07/18/2016 TYPE OF CONSULTATION: Gastroenterology HISTORY OF PRESENT ILLNESS: The patient is a 36-year-old female transferred from [facility] on 07/08/2016 with a complaint of pain in the right upper quadrant. The patient had a cholecystec ovidio done on 04/28/2016 and after that she had systemic inflammatory reaction with a leukocytosis an d there was a questionable hematoma with anemia at that point, and patient was stabilized and transf erred. However, on 07/08/2016 or 07/07/2016, the patient had abdominal pain, so was taken to [facility]. There a CAT scan was done and found patient had a collection in the liver or gallbla dder fossa area. A drainage catheter was placed. I think the drainage catheter was placed by Dr. Gentry sheridan and it was draining yellowish color. Total bilirubin in the fluid was positive at 7.5. The [facility] ient had a HIDA scan and MRCP, both were negative. Yesterday, CAT scan showed the fluid collection which was 10 cm in anteroposterior diameter, so GI consult was called in. The patient continues to have pain in the right upper quadrant. No fever. She is nauseous, no vomiting. PAST SURGICAL HISTORY: Cholecystectomy, appendicectomy, and right ankle surgery. FAMILY HISTORY: Nothing contributory. SOCIAL HISTORY: Does not smoke or drink. ALLERGIES: NONE. MEDICATIONS: As per the reconciliation list. REVIEW OF SYSTEMS: Otherwise negative. PHYSICAL EXAMINATION: GENERAL: Overweight, not in distress. VITAL SIGNS: Stable. HEENT: Unremarkable. NECK: Supple, no thyromegaly, no lymphadenopathy. CARDIOVASCULAR: No murmur, gallop or click. LUNGS: Clear. ABDOMEN: Soft. She has a drain. Right now when I saw the patient, it was empty so I could not see the color, but there was yellowish tinge in the tube indicative of bile. IMPRESSION: 1. Biloma persistent for almost 2 months postoperatively after removal of the gallbladder. 2. Overweight. 3. Status post cholecystectomy. PLAN: To continue antibiotic as per ID. Continue percutaneous drain. Hopefully, the leak may have closed but since this is persistent, I would do an ERCP and sphincterotomy and reduce intraoperativ e biliary pressure and if the classical leak is identified, then we will put a stent. I have discus sed with the patient and and they understood and have agreed. Dictated By: JESUS SKAGGS/ARGELAI Conf#: [id number] DID#: [id number] CC: JESUS AGUILAR MD;*EndCC*
[2016-07-19] MEDS ORDERED: ONDANSETRON 4 MG INJ ONE (10:53)
[2016-07-19] MEDS ORDERED: METOCLOPRAMIDE 10 MG INJ ONE (10:53)
[2016-07-19] MEDS ORDERED: DEXAMETHASONE 4 MG/ML 1 ML INJ ONE (10:54)
[2016-07-19] MEDS ORDERED: EPHEDrine SULFATE 50 MG/5 ML SYG ONE (11:14)
[2016-07-19] MEDS ORDERED: ROCURONIUM 50 MG INJ ONE (11:14)
[2016-07-19] MEDS ORDERED: GLYCOPYRROLATE 0.4 MG INJ ONE (11:27)
[2016-07-19] MEDS ORDERED: NEOSTIGMINE 3 MG/3 ML SYRINGE ONE (11:27)
[2016-07-19] MEDS ORDERED: DIPHENHYDRAMINE 50 MG INJ IV PRN (11:30)
[2016-07-19] MEDS ORDERED: MEPERIDINE 25 MG INJ IV PRN (11:30)
[2016-07-19] MEDS ORDERED: EPHEDrine SULFATE 50 MG/5 ML SYG IV PRN (11:30)
[2016-07-19] MEDS ORDERED: FENTAnyl 50 MCG/ML VIAL IV PRN (11:30)
[2016-07-19] MEDS ORDERED: HYDROmorphONE (0.2 MG/ML) 10ML SYG IV PRN (11:30)
[2016-07-19] MEDS ORDERED: KETOROLAC 30 MG INJ IV ONE (11:30)
[2016-07-19] MEDS ORDERED: LABETALOL HCL 20MG INJ IV PRN (11:30)
[2016-07-19] MEDS ORDERED: ONDANSETRON 4 MG INJ IV PRN (11:30)
[2016-07-19] MEDS ORDERED: LORAZEPAM 2 MG INJ IV PRN (11:30)
[2016-07-19] MEDS ORDERED: PROCHLORPERAZINE 10 MG INJ IV PRN (11:30)
[2016-07-19] MEDS ORDERED: OXYCODONE/ACETAMINOPHEN (5/325) TAB PO PRN (11:30)
[2016-07-19] MEDS ORDERED: hydrALAzine 20 MG INJ IV PRN (11:30)
--- NOTE | 2016-07-19 12:02 | GILP ---
DATE OF PROCEDURE: PROCEDURE PERFORMED: ERCP, sphincterotomy and placement of a stent. INDICATION: The patient is a 36-year-old female, status post open cholecystectomy, has developed a biloma. The purpose is to perform ERCP and look for the leak. The patient's 2 HIDA scans were nega tive, 2 MRCPs were negative. The risks of the procedure, related and unrelated complications, anest hetic risks, alternatives discussed. Informed consent was obtained. DESCRIPTION OF PROCEDURE: The patient was brought to room #OR-5. She was morbidly obese, had a dif ficult intubation, placed in a prone position by the anesthesiologist and her oxygen saturation was around 88 to 92%. Scope was passed after approval from Dr. Ely with much ease into the esophagus, advanced further down into stomach and duodenum. Ampulla was identified, cannulated with a double-w ramez technique. Bile duct was selectively cannulated. There was a leak demonstrated. Sphincterotom y done and a stent placed, 10-[place] 5 cm, and scope was removed with good patient tolerance. Total fluoroscopy time was 5 seconds. The patient tolerated the procedure very well. IMPRESSION: 1. Biliary leak. 2. Sphincterotomy done. 3. Stent placed and excellent drainage established. 4. Fluoroscopy time was 4 to 5 seconds. PLAN: Monitor LFT and CBC. Hopefully, we can remove the external drain in a few days. Dictated By: JESUS AGUILAR MD PJ/ARGELIA Conf#: [id number] DID#: [id number] CC: JEB VAZQUEZ MD; JESUS AGUILAR MD; KATIE COLEMAN MD;*[facility]*
--- NOTE | 2016-07-19 16:58 | PN ---
Date/Time of Note Date/Time of Note DATE: 07/19/16 TIME: 16:57 Assessment/Plan VTE Prophylaxis VTE Prophylaxis Intervention: other Lines/Catheters IV Catheter Type (from Nrs): Peripheral IV Urinary Cath still in place: No Assessment/Plan Chief Complaint/Hosp Course IMPRESSION: 1. hx cholecystectomy 2.s/ Post-fluid collection around the liver, possible biloma. The patient has a history of pneumonia, chronic obstructive pulmonary disease, history of obesity. Patient has a history of cholecystectomy, history of appendectomy. 3 leucocytosis better 4 s/p ir drainage of abd fluid 5s/p ercp and stent placement plan antibiotic ck cath drainage per surgery hida neg per dr martin and dr maddox Problems: Subjective 24 Hr Interval Summary Subjective hx not possible: other (s/p ercp and stent placement) Exam/Review of Systems Vital Signs Vitals Vital Signs Date Time Temp Pulse Resp B/P Pulse Ox O2 Delivery O2 Flow Rate FiO2 07/19/16 13:24 98.6 82 14 119/56 92 Nasal Cannula 4.0 Intake and Output 07/18/16 07/18/16 07/19/16 15:00 23:00 07:00 Intake Total 820 ml 420 ml Output Total 80 ml 25 ml Balance 740 ml 395 ml Exam Respiratory: clear to auscultation Cardiovascular: regular rate and rhythm Gastrointestinal: bowel sounds (+), soft Musculoskeletal: nl extremities to inspection Extremities: normal pulses Results Result Diagram: 07/18/16 0644 07/18/16 0644 Results 24 hrs Laboratory Tests Test 07/18/16 17:28 07/18/16 21:00 07/19/16 07:53 07/19/16 10:00 Bedside Glucose 107 118 94 101 Test 07/19/16 13:28 Bedside Glucose 153 Medications Medications Current Medications Hydromorphone HCl (Dilaudid) 0.25 mg Q2H PRN IV PAIN Last administered on 05:04; Admin Dose 0.25 MG; Start 07/08/16 at 20:30 Ondansetron HCl (Zofran Inj) 4 mg Q6H PRN IV NAUSEA AND/OR VOMITING Last administered on 07/18/16 23:52; Admin Dose 4 MG; Start 07/08/16 at 20:30 Acetaminophen (Tylenol Tab) 650 mg Q6H PRN PO PAIN AND OR ELEVATED TEMP; Start 07/08/16 at 20:30 Diagnostic Test (Pha) (Accu-Chek) 1 ea 02 XX ; Start 07/09/16 at 02:00 Miscellaneous Information 1 ea NOTE XX ; Start 07/08/16 at 20:30 Glucose (Glutose) 15 gm Q15M PRN PO DECREASED GLUCOSE; Start 07/08/16 at 20:30 Glucose (Glutose) 22.5 gm Q15M PRN PO DECREASED GLUCOSE; Start 07/08/16 at 20:30 Dextrose (D50w Syringe) 25 ml Q15M PRN IV DECREASED GLUCOSE; Start 07/08/16 at 20:30 Dextrose (D50w Syringe) 50 ml Q15M PRN IV DECREASED GLUCOSE; Start 07/08/16 at 20:30 Glucagon (Glucagen) 1 mg Q15M PRN IM DECREASED GLUCOSE; Start 07/08/16 at 20:30 Glucose (Glutose) 15 gm Q15M PRN BUCCAL DECREASED GLUCOSE; Start 07/08/16 at 20: 30 Alprazolam (Xanax) 2 mg BID PO Last administered on 07/18/16 17:17; Admin Dose 2 MG; Start 07/08/16 at 21:00 Sertraline HCl (Zoloft) 200 mg DAILY PO Last administered on 07/18/16 17:05; Admin Dose 200 MG; Start 07/09/16 at 09:00 Losartan Potassium (Cozaar) 25 mg DAILY@21 PO Last administered on 07/18/16 21 :04; Admin Dose 25 MG; Start 07/08/16 at 21:00 Zolpidem Tartrate (Ambien) 5 mg HS PRN PO INSOMNIA Last administered on 01:11; Admin Dose 5 MG; Start 07/08/16 at 21:00 Hydromorphone HCl (Dilaudid) 0.5 mg Q4H PRN IV PAIN; Start 07/09/16 at 19:30 Acetaminophen/ Aspirin/Caffeine (Excedrin) 2 tab DAILY PRN PO HEADACHE; Start 07/09/16 at 19:30 Hydromorphone HCl (Dilaudid) 0.75 mg Q4H PRN IV PAIN Last administered on 07:49; Admin Dose 0.75 MG; Start 07/10/16 at 19:00 Oxycodone/ Acetaminophen (Percocet (5/ 325)) 1 tab Q6H PRN PO PAIN Last administered on 07/18/16 17:01; Admin Dose 1 TAB; Start 07/11/16 at 15:45 Pantoprazole (Protonix Tab) 40 mg DAILY@06 PO Last administered on 07/15/16 05 :53; Admin Dose 40 MG; Start 07/14/16 at 06:00 JEB VAZQUEZ MD Jul 19, 2016 16:58
--- NOTE | 2016-07-19 20:21 | CONS ---
Date/Time of Note Date/Time of Note DATE: 07/19/16 TIME: 20:17 Assessment/Plan Assessment/Plan Chief Complaint/Hosp Course SUBJECTIVE: No acute changes. Patient is alert, feels good, looks comfortable. Denies pain, discomfort. No fevers. She is off antibiotics. PHYSICAL EXAMINATION GENERAL: Morbidly obese, middle-aged, woman who is alert, in no distress. HEENT: Head atraumatic, normocephalic. Sclerae are anicteric. Buccal mucosa dry. NECK: Supple. CHEST: Rise symmetrical. Breath sounds clear. HEART: S1, S2. ABDOMEN: Soft, bowel tones present. EXTREMITIES: Without cyanosis. SKIN: No jaundice, no cyanosis. ASSESSMENT 1. Status post CT-guided aspiration of intraabdominal fluid on 07/10/2016, fluid cultures negative. 2. Morbid obesity. 3. History of cholecystectomy. 4. Biliary leak, s/p ERCP/stent placement this am. PLAN: The patient remains stable off antibiotics. Continue present care. GI/ surgical rec-s. Panculture p.r.n. staff Problems: Consultation Date/Type/Reason Admit Date/Time Jul 08, 2016 at 18:34 Initial Consult Date Type of Consultation: ID Exam/Review of Systems Vital Signs Vitals Vital Signs Date Time Temp Pulse Resp B/P Pulse Ox O2 Delivery O2 Flow Rate FiO2 07/19/16 13:24 98.6 82 14 119/56 92 Nasal Cannula 4.0 Intake and Output 07/18/16 07/18/16 07/19/16 15:00 23:00 07:00 Intake Total 820 ml 420 ml Output Total 80 ml 25 ml Balance 740 ml 395 ml Results Result Diagram: 07/18/16 0644 07/18/16 0644 Results 24 hrs Laboratory Tests Test 07/18/16 21:00 07/19/16 07:53 07/19/16 10:00 07/19/16 13:28 Bedside Glucose 118 94 101 153 Test 07/19/16 17:03 Bedside Glucose 197 Medications Medications Current Medications Hydromorphone HCl (Dilaudid) 0.25 mg Q2H PRN IV PAIN Last administered on t 05:04; Admin Dose 0.25 MG; Start 07/08/16 at 20:30 Ondansetron HCl (Zofran Inj) 4 mg Q6H PRN IV NAUSEA AND/OR VOMITING Last administered on 07/18/16 23:52; Admin Dose 4 MG; Start 07/08/16 at 20:30 Acetaminophen (Tylenol Tab) 650 mg Q6H PRN PO PAIN AND OR ELEVATED TEMP; Start 07/08/16 at 20:30 Diagnostic Test (Pha) (Accu-Chek) 1 ea 02 XX ; Start 07/09/16 at 02:00 Miscellaneous Information 1 ea NOTE XX ; Start 07/08/16 at 20:30 Glucose (Glutose) 15 gm Q15M PRN PO DECREASED GLUCOSE; Start 07/08/16 at 20:30 Glucose (Glutose) 22.5 gm Q15M PRN PO DECREASED GLUCOSE; Start 07/08/16 at 20:30 Dextrose (D50w Syringe) 25 ml Q15M PRN IV DECREASED GLUCOSE; Start 07/08/16 at 20:30 Dextrose (D50w Syringe) 50 ml Q15M PRN IV DECREASED GLUCOSE; Start 07/08/16 at 20:30 Glucagon (Glucagen) 1 mg Q15M PRN IM DECREASED GLUCOSE; Start 07/08/16 at 20:30 Glucose (Glutose) 15 gm Q15M PRN BUCCAL DECREASED GLUCOSE; Start 07/08/16 at 20: 30 Alprazolam (Xanax) 2 mg BID PO Last administered on 07/18/16 17:17; Admin Dose 2 MG; Start 07/08/16 at 21:00 Sertraline HCl (Zoloft) 200 mg DAILY PO Last administered on 07/18/16 17:05; Admin Dose 200 MG; Start 07/09/16 at 09:00 Losartan Potassium (Cozaar) 25 mg DAILY@21 PO Last administered on 07/18/16 21 :04; Admin Dose 25 MG; Start 07/08/16 at 21:00 Zolpidem Tartrate (Ambien) 5 mg HS PRN PO INSOMNIA Last administered on 01:11; Admin Dose 5 MG; Start 07/08/16 at 21:00 Hydromorphone HCl (Dilaudid) 0.5 mg Q4H PRN IV PAIN; Start 07/09/16 at 19:30 Acetaminophen/ Aspirin/Caffeine (Excedrin) 2 tab DAILY PRN PO HEADACHE Last administered on 07/19/16 20:07; Admin Dose 2 TAB; Start 07/09/16 at 19:30 Hydromorphone HCl (Dilaudid) 0.75 mg Q4H PRN IV PAIN Last administered on 17:10; Admin Dose 0.75 MG; Start 07/10/16 at 19:00 Oxycodone/ Acetaminophen (Percocet (5/ 325)) 1 tab Q6H PRN PO PAIN Last administered on 07/18/16 17:01; Admin Dose 1 TAB; Start 07/11/16 at 15:45 Pantoprazole (Protonix Tab) 40 mg DAILY@06 PO Last administered on 07/15/16 05 :53; Admin Dose 40 MG; Start 07/14/16 at 06:00 ABNER BALL NP Jul 19, 2016 20:21
[2016-07-19] MEDS: LOSARTAN 25 MG TAB PO SCH (21:38)
[2016-07-19] MEDS: ONDANSETRON 4 MG INJ IV PRN (21:56)
[2016-07-20] MEDS: OXYCODONE/ACETAMINOPHEN (5/325) TAB PO PRN (00:45)
[2016-07-20] MEDS: ONDANSETRON 4 MG INJ IV PRN ×4 (01:49→20:44)
[2016-07-20] MEDS: HYDROmorphONE 1 MG/ML SYG IV PRN ×6 (01:54→22:19)
[2016-07-20] MEDS: ACCU-CHEK XX SCH (02:00)
[2016-07-20] MEDS: PANTOPRAZOLE (EC) 40 MG TAB PO SCH (05:38)
[2016-07-20 06:22] LABS: ADD SCAN DIFF NO
[2016-07-20 06:27] LABS: BASOPHILS % 0.1 % (0.0-2.0); EOSINOPHILS % 0.1 % (0.0-7.0); HEMATOCRIT 40.4 % (37.0-47.0); HEMOGLOBIN 12.9 g/dl (12.0-16.0); LYMPHOCYTES # 2.5 10^3/ul (0.8-2.9); LYMPHOCYTES % 14.3 % (15.0-51.0); MEAN CORPUSCULAR HEMOGLOBIN 26.2 pg (29.0-33.0); MEAN CORPUSCULAR HGB CONC 31.9 g/dl (32.0-37.0); MEAN CORPUSCULAR VOLUME 82.1 fl (82.0-101.0); MEAN PLATELET VOLUME 9.1 fl (7.4-10.4); MONOCYTES % 5.9 % (0.0-11.0); NEUTROPHIL # 13.7 10^3/ul (1.6-7.5); PLATELET COUNT 457 10^3/UL (140-415); RED BLOOD COUNT 4.92 10^6/ul (4.20-5.40); RED CELL DISTRIBUTION WIDTH 14.9 % (11.5-14.5); WHITE BLOOD COUNT 17.4 10^3/ul (4.8-10.8)
[2016-07-20 06:37] LABS: ALBUMIN 4.4 g/dl (3.3-4.9); POTASSIUM 3.8 mmol/L (3.5-5.1)
[2016-07-20 06:39] LABS: ALBUMIN/GLOBULIN RATIO 0.95; BILIRUBIN,INDIRECT 0.2 mg/dl (0-1.1); BILIRUBIN,TOTAL 0.2 mg/dl (0.2-1.3); CREATININE 0.48 mg/dl (0.44-1.00)
[2016-07-20 06:40] LABS: CALCIUM 9.2 mg/dl (8.4-10.2)
[2016-07-20] MEDS ORDERED: HYDROmorphONE 1 MG/ML SYG IV STA (07:23)
[2016-07-20] MEDS: INSULIN ASPART [NOVOLOG] 3 ML PEN SC SCH ×4 (08:00→21:00)
[2016-07-20 08:15] VITALS: BP 174/79; RESP 20
[2016-07-20 08:26] VITALS: BP 167/82; PULSE 69; RESP 16
[2016-07-20] MEDS: ALPRAZOLAM 1 MG TAB PO SCH ×3 (08:29→20:41)
[2016-07-20] MEDS: SERTRALINE 100 MG TAB PO SCH (08:29)
--- NOTE | 2016-07-20 10:07 | RADRPT ---
PROCEDURE: Fluoroscopic spot views for an ERCP for surgical guidance CLINICAL INDICATION: Abdominal pain TECHNIQUE: 9 fluoroscopic spot views for an ERCP. Images were submitted to the radiology departme for interpretation. COMPARISON: None FINDINGS: Endoscope is identified. A pigtail catheter in the right hemiabdomen is seen. Right upper quadrant surgical clips are seen. A catheter is seen in the biliary system. Wires are seen in the biliary tree and pancreatic duct. The visualized biliary system appears normal caliber. The images were re viewed by the attending physician at the time of the procedure. Fluoroscopy time was 8 seconds. IMPRESSION: Intraoperative images were obtained for an ERCP for surgical guidance. Please refer to the surgeon's operative notes for further details. RPTAT: HPNM Physician Halina Date Time Electronically viewed and signed by Physician Halina on 07/20/2016 10:07 /
[2016-07-20 12:45] LABS: AMYLASE 1717 U/L (11-123)
--- NOTE | 2016-07-20 13:58 | PN ---
Date/Time of Note Date/Time of Note DATE: 07/20/16 TIME: 13:57 Assessment/Plan VTE Prophylaxis VTE Prophylaxis Intervention: other Lines/Catheters IV [facility]from [facility] Urinary Cath still in place: No Assessment/Plan Chief Complaint/Hosp Course IMPRESSION: 1. hx cholecystectomy 2.s/ Post-fluid collection around the liver, biloma. s/p ercp and stent The patient has a history of pneumonia, chronic obstructive pulmonary disease, history of obesity. Patient has a history of cholecystectomy, history of appendectomy. 3 leucocytosis 4 s/p ir drainage of abd fluid 5s/p ercp and stent placement plan antibiotic ck cath drainage per surgery hida neg per dr martin and dr maddox labs kub Problems: Subjective 24 Hr Interval Summary Subjective hx not possible: other (abd pain+) Exam/Review of Systems Vital Signs Vitals Vital Signs Date Time Temp Pulse Resp B/P Pulse Ox O2 Delivery O2 Flow Rate FiO2 07/20/16 08:26 69 16 167/82 07/20/16 08:15 98.4 92 07/19/16 13:24 Nasal Cannula 4.0 Intake and Output 07/19/16 07/19/16 07/20/16 15:00 23:00 07:00 Intake Total 240 ml 500 ml Output Total 50 ml 10 ml Balance 190 ml 490 ml Exam Neck: supple Respiratory: clear to auscultation Cardiovascular: regular rate and rhythm Gastrointestinal: bowel sounds (+), soft Extremities: normal pulses Results Result Diagram: 07/20/16 0450 07/20/16 0450 Results 24 hrs Laboratory Tests Test 07/19/16 17:03 07/19/16 21:41 07/20/16 04:50 07/20/16 08:28 Bedside Glucose 197 163 132 White Blood Count 17.4 #H Red Blood Count 4.92 Hemoglobin 12.9 Hematocrit 40.4 Mean Corpuscular Volume 82.1 Mean Corpuscular Hemoglobin 26.2 L Mean Corpuscular Hemoglobin Concent 31.9 L Red Cell Distribution Width 14.9 H Platelet Count 457 H Mean Platelet Volume 9.1 Neutrophils % 79.0 H Lymphocytes % 14.3 L Monocytes % 5.9 Eosinophils % 0.1 Basophils % 0.1 Nucleated Red Blood Cells % 0.0 Neutrophils # 13.7 H Lymphocytes # 2.5 Monocytes # 1.0 H Eosinophils # 0.0 Basophils # 0.0 Nucleated Red Blood Cells # 0.0 Sodium Level 141 Potassium Level 3.8 Chloride Level 101 Carbon Dioxide Level 27 Anion Gap 17 #H Blood Urea Nitrogen 11 Creatinine 0.48 Glucose Level 129 Calcium Level 9.2 Total Bilirubin 0.2 Direct Bilirubin 0.00 Indirect Bilirubin 0.2 Aspartate Amino Transf (AST/SGOT) 30 Alanine Aminotransferase (ALT/SGPT) 30 Alkaline Phosphatase 90 Total Protein 9.0 H Albumin 4.4 Globulin 4.60 H Albumin/Globulin Ratio 0.95 Amylase Level 1717 H Lipase 23950 H Test 07/20/16 12:13 Bedside Glucose 143 Medications Medications Current Medications Ondansetron HCl (Zofran Inj) 4 mg Q6H PRN IV NAUSEA AND/OR VOMITING Last administered on 07/20/16 06:30; Admin Dose 4 MG; Start 07/08/16 at 20:30 Acetaminophen (Tylenol Tab) 650 mg Q6H PRN PO PAIN AND OR ELEVATED TEMP; Start 07/08/16 at 20:30 Diagnostic Test (Pha) (Accu-Chek) 1 ea 02 XX ; Start 07/09/16 at 02:00 Miscellaneous Information 1 ea NOTE XX ; Start 07/08/16 at 20:30 Glucose (Glutose) 15 gm Q15M PRN PO DECREASED GLUCOSE; Start 07/08/16 at 20:30 Glucose (Glutose) 22.5 gm Q15M PRN PO DECREASED GLUCOSE; Start 07/08/16 at 20:30 Dextrose (D50w Syringe) 25 ml Q15M PRN IV DECREASED GLUCOSE; Start 07/08/16 at 20:30 Dextrose (D50w Syringe) 50 ml Q15M PRN IV DECREASED GLUCOSE; Start 07/08/16 at 20:30 Glucagon (Glucagen) 1 mg Q15M PRN IM DECREASED GLUCOSE; Start 07/08/16 at 20:30 Glucose (Glutose) 15 gm Q15M PRN BUCCAL DECREASED GLUCOSE; Start 07/08/16 at 20: 30 Alprazolam (Xanax) 2 mg BID PO Last administered on 07/20/16 08:32; Admin Dose 2 MG; Start 07/08/16 at 21:00 Sertraline HCl (Zoloft) 200 mg DAILY PO Last administered on 07/18/16 17:05; Admin Dose 200 MG; Start 07/09/16 at 09:00 Losartan Potassium (Cozaar) 25 mg DAILY@21 PO Last administered on 07/19/16 21 :38; Admin Dose 25 MG; Start 07/08/16 at 21:00 Zolpidem Tartrate (Ambien) 5 mg HS PRN PO INSOMNIA Last administered on 01:11; Admin Dose 5 MG; Start 07/08/16 at 21:00 Acetaminophen/ Aspirin/Caffeine (Excedrin) 2 tab DAILY PRN PO HEADACHE Last administered on 07/19/16 20:07; Admin Dose 2 TAB; Start 07/09/16 at 19:30 Hydromorphone HCl (Dilaudid) 0.75 mg Q4H PRN IV PAIN Last administered on 10:19; Admin Dose 0.75 MG; Start 07/10/16 at 19:00 Oxycodone/ Acetaminophen (Percocet (5/ 325)) 1 tab Q6H PRN PO PAIN Last administered on 07/20/16 00:45; Admin Dose 1 TAB; Start 07/11/16 at 15:45 Pantoprazole (Protonix Tab) 40 mg DAILY@06 PO Last administered on 07/20/16 05 :38; Admin Dose 40 MG; Start 07/14/16 at 06:00 JEB VAZQUEZ MD Jul 20, 2016 13:58
--- NOTE | 2016-07-20 14:59 | RADRPT ---
PROCEDURE: XR Chest. CLINICAL INDICATION: Check catheter placement TECHNIQUE: Anterior chest x-ray. COMPARISON: 05/08/2016 FINDINGS: The lung volumes are low. There is crowding of pulmonary markings with bibasilar atelectasis. No pleural effusion identified. There is no evidence of pneumothorax. The cardiomediastinal silhouette is unremarkable. The soft tissues are normal. Osseous structures are unremarkable. IMPRESSION: 1. Limited exam due to very low lung volumes and bibasilar atelectasis. 2. No catheter identified. RPTAT: QQ .Jefferson Ugalde MD, Date Time Electronically viewed and signed by .Jefferson Ugalde MD, on 07/20/2016 14:58 .M/
--- NOTE | 2016-07-20 15:03 | RADRPT ---
PROCEDURE: XR Abdomen. CLINICAL INDICATION: Check catheter tip TECHNIQUE: Single AP view of the abdomen is available for review. COMPARISON: CT dated 07/18/2016 FINDINGS: Pigtail catheter in right upper quadrant demonstrates stable position compared to prior CT scan. Surgical nitin right upper quadrant are consistent with prior cholecystectomy. The bowel gas pattern is normal. There is no evidence of obstruction. There are no abnormal calcifications overlying the urinary tracts. No free air identified. The osseous structures do not demonstrate acute abnormality. IMPRESSION: 1. Stable position of pigtail catheter in the right upper quadrant. 2. No evidence of bowel obstruction, perforation or radiopaque calculi overlying the urinary tracts . RPTAT: QQ .Jefferson Ugalde MD, MD Date Time Electronically viewed and signed by .Jefferson Ugalde MD, on 07/20/2016 15:03 .M/
--- NOTE | 2016-07-20 16:29 | PN ---
DATE: 07/20/2016 SUBJECTIVE: The patient is status post ERCP yesterday and placement of a stent and a sphincterotomy . The patient complains of pain in the subcostal bilaterally and has had some nausea and some small amount of vomiting today morning. OBJECTIVE: GENERAL: Awake, alert, oriented. VITAL SIGNS: 98.4, 69, 16, 167/82, saturation 92% on room air. LABS: WBC has increased to 17,400 with 79% segmented elevated shift to the left, hemoglobin 12.9, h ematocrit 40.4, normal chemistry, AST, ALT, alkaline phosphatase. Bilirubin normal limits. We do n ot have any amylase or lipase today. PHYSICAL EXAMINATION: ABDOMEN: Soft, some tenderness on deep pressure, especially in the epigastric area. The tube has drained 60 mL since last night in 12 hours and is brownish color. ASSESSMENT AND PLAN: Status post ERCP and detection of some leak and placement of a stent and sphin cterotomy by Dr. Blair yesterday. The patient today has abdominal pain and nausea, some vomiting. The patient may have post-procedure pancreatitis. I am going to order amylase and lipase today. W e will keep the patient n.p.o. and we will observe. Dictated By: BRADLY CORTES/ARGELIA Conf#: [id number] DID#: [id number]
[2016-07-20] MEDS: LACTATED RINGER'S 1,000 ML IV SCH (18:50)
--- NOTE | 2016-07-20 19:26 | CONS ---
Date/Time of Note Date/Time of Note DATE: 07/20/16 TIME: 19:25 Assessment/Plan Assessment/Plan Additional Assessment/Plan IMPRESSION: 1. Biloma persistent for almost 2 months postoperatively after removal of the gallbladder. 2. Overweight. 3. Status post cholecystectomy. 4. Status post sphincterotomy and placement of a stent for biliary leak 5. Abdominal pain and nausea due to pancreatitis mild Plan N.p.o., Ringer lactate solution at 1 25 cc/h Will follow amylase and lipase Consultation Date/Type/Reason Admit Date/Time Jul 08, 2016 at 18:34 Initial Consult Date Type of Consultation: ID 24 HR Interval Summary Free Text/Dictation Some abdominal pain nausea. As per the patient drainages reduced to absent Exam/Review of Systems Vital Signs Vitals Vital Signs Date Time Temp Pulse Resp B/P Pulse Ox O2 Delivery O2 Flow Rate FiO2 07/20/16 08:26 69 16 167/82 07/20/16 08:15 98.4 92 07/19/16 13:24 Nasal Cannula 4.0 Intake and Output 07/19/16 07/19/16 07/20/16 15:00 23:00 07:00 Intake Total 240 ml 500 ml Output Total 50 ml 10 ml Balance 190 ml 490 ml Exam Constitutional: alert, oriented, well developed Psych: nl mood/affect, no complaints Head: atraumatic, normocephalic Eyes: EOMI, PERRL, nl conjunctiva, nl lids, nl sclera ENMT: nl external ears & nose, nl lips & teeth, nl nasal mucosa & septum Neck: non-tender, supple Respiratory: clear to auscultation, normal air movement Cardiovascular: nl pulses, regular rate and rhythm Gastrointestinal: nl liver, spleen, non-tender, soft Musculoskeletal: nl extremities to inspection, nl gait and stance Extremities: normal pulses 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, nl mental status, nl speech, nl strength Skin: nl turgor, No rash or lesions Lymph: nl lymph nodes Results Result Diagram: 07/20/16 0450 07/20/16 0450 Results 24 hrs Laboratory Tests Test 07/19/16 21:41 07/20/16 04:50 07/20/16 08:28 07/20/16 12:13 Bedside Glucose 163 132 143 White Blood Count 17.4 #H Red Blood Count 4.92 Hemoglobin 12.9 Hematocrit 40.4 Mean Corpuscular Volume 82.1 Mean Corpuscular Hemoglobin 26.2 L Mean Corpuscular Hemoglobin Concent 31.9 L Red Cell Distribution Width 14.9 H Platelet Count 457 H Mean Platelet Volume 9.1 Neutrophils % 79.0 H Lymphocytes % 14.3 L Monocytes % 5.9 Eosinophils % 0.1 Basophils % 0.1 Nucleated Red Blood Cells % 0.0 Neutrophils # 13.7 H Lymphocytes # 2.5 Monocytes # 1.0 H Eosinophils # 0.0 Basophils # 0.0 Nucleated Red Blood Cells # 0.0 Sodium Level 141 Potassium Level 3.8 Chloride Level 101 Carbon Dioxide Level 27 Anion Gap 17 #H Blood Urea Nitrogen 11 Creatinine 0.48 Glucose Level 129 Calcium Level 9.2 Total Bilirubin 0.2 Direct Bilirubin 0.00 Indirect Bilirubin 0.2 Aspartate Amino Transf (AST/SGOT) 30 Alanine Aminotransferase (ALT/SGPT) 30 Alkaline Phosphatase 90 Total Protein 9.0 H Albumin 4.4 Globulin 4.60 H Albumin/Globulin Ratio 0.95 Amylase Level 1717 H Lipase 31833 H Test 07/20/16 17:43 Bedside Glucose 110 Medications Medications Current Medications Ondansetron HCl (Zofran Inj) 4 mg Q6H PRN IV NAUSEA AND/OR VOMITING Last administered on 07/20/16t 14:27; Admin Dose 4 MG; Start 07/08/16 at 20:30 Acetaminophen (Tylenol Tab) 650 mg Q6H PRN PO PAIN AND OR ELEVATED TEMP; Start 07/08/16 at 20:30 Diagnostic Test (Pha) (Accu-Chek) 1 ea 02 XX ; Start 07/09/16 at 02:00 Miscellaneous Information 1 ea NOTE XX ; Start 07/08/16 at 20:30 Glucose (Glutose) 15 gm Q15M PRN PO DECREASED GLUCOSE; Start 07/08/16 at 20:30 Glucose (Glutose) 22.5 gm Q15M PRN PO DECREASED GLUCOSE; Start 07/08/16 at 20:30 Dextrose (D50w Syringe) 25 ml Q15M PRN IV DECREASED GLUCOSE; Start 07/08/16 at 20:30 Dextrose (D50w Syringe) 50 ml Q15M PRN IV DECREASED GLUCOSE; Start 07/08/16 at 20:30 Glucagon (Glucagen) 1 mg Q15M PRN IM DECREASED GLUCOSE; Start 07/08/16 at 20:30 Glucose (Glutose) 15 gm Q15M PRN BUCCAL DECREASED GLUCOSE; Start 07/08/16 at 20: 30 Alprazolam (Xanax) 2 mg BID PO Last administered on 07/20/16 08:32; Admin Dose 2 MG; Start 07/08/16 at 21:00 Sertraline HCl (Zoloft) 200 mg DAILY PO Last administered on 07/18/16 17:05; Admin Dose 200 MG; Start 07/09/16 at 09:00 Losartan Potassium (Cozaar) 25 mg DAILY@21 PO Last administered on 07/19/16 21 :38; Admin Dose 25 MG; Start 07/08/16 at 21:00 Zolpidem Tartrate (Ambien) 5 mg HS PRN PO INSOMNIA Last administered on 01:11; Admin Dose 5 MG; Start 07/08/16 at 21:00 Acetaminophen/ Aspirin/Caffeine (Excedrin) 2 tab DAILY PRN PO HEADACHE Last administered on 07/19/16 20:07; Admin Dose 2 TAB; Start 07/09/16 at 19:30 Hydromorphone HCl (Dilaudid) 0.75 mg Q4H PRN IV PAIN Last administered on 18:19; Admin Dose 0.75 MG; Start 07/10/16 at 19:00 Oxycodone/ Acetaminophen (Percocet (5/ 325)) 1 tab Q6H PRN PO PAIN Last administered on 07/20/16 00:45; Admin Dose 1 TAB; Start 07/11/16 at 15:45 Pantoprazole 40 mg 40 mg DAILY@06 PO Last administered on 07/20/16 05:38; Admin Dose 40 MG; Start 07/14/16 at 06:00 Lactated Ringer's (Lr) 1,000 ml @ 125 mls/hr Q8H IV Last administered on 18:50; Admin Dose 125 MLS/HR; Start 07/20/16 at 18:30 JESUS AGUILAR MD Jul 20, 2016 19:26
--- NOTE | 2016-07-20 20:32 | CONS ---
Date/Time of Note Date/Time of Note DATE: 07/20/16 TIME: 20:29 Assessment/Plan Assessment/Plan Chief Complaint/Hosp Course SUBJECTIVE: Awake, c/o nausea and abd pain, no fevers, looks comfortable. PHYSICAL EXAMINATION GENERAL: Morbidly obese, middle-aged, woman who is alert, in no distress. HEENT: Head atraumatic, normocephalic. Sclerae are anicteric. Buccal mucosa dry. NECK: Supple. CHEST: Rise symmetrical. Breath sounds clear. HEART: S1, S2. ABDOMEN: Soft, bowel tones present. EXTREMITIES: Without cyanosis. SKIN: No jaundice, no cyanosis. ASSESSMENT: 1. Leukocytois, poss post-procedure pancreatitis 2. Status post CT-guided aspiration of intraabdominal fluid on 07/10/2016, fluid cultures negative. 3. Morbid obesity. 4. History of cholecystectomy. 5. Biliary leak, s/p ERCP/stent placement 07/19/16. PLAN: Clinically stable, will start Imipenem, f/u labs and cxr in am, GI/ surgical rec-s. Panculture p.r.n. staff Problems: Consultation Date/Type/Reason Admit Date/Time Jul 08, 2016 at 18:34 Type of Consultation: ID Exam/Review of Systems Vital Signs Vitals Vital Signs Date Time Temp Pulse Resp B/P Pulse Ox O2 Delivery O2 Flow Rate FiO2 07/20/16 08:26 69 16 167/82 07/20/16 08:15 98.4 92 07/19/16 13:24 Nasal Cannula 4.0 Intake and Output 07/19/16 07/19/16 07/20/16 15:00 23:00 07:00 Intake Total 240 ml 500 ml Output Total 50 ml 10 ml Balance 190 ml 490 ml Results Result Diagram: 07/20/16 0450 07/20/16 0450 Results 24 hrs Laboratory Tests Test 07/19/16 21:41 07/20/16 04:50 07/20/16 08:28 07/20/16 12:13 Bedside Glucose 163 132 143 White Blood Count 17.4 #H Red Blood Count 4.92 Hemoglobin 12.9 Hematocrit 40.4 Mean Corpuscular Volume 82.1 Mean Corpuscular Hemoglobin 26.2 L Mean Corpuscular Hemoglobin Concent 31.9 L Red Cell Distribution Width 14.9 H Platelet Count 457 H Mean Platelet Volume 9.1 Neutrophils % 79.0 H Lymphocytes % 14.3 L Monocytes % 5.9 Eosinophils % 0.1 Basophils % 0.1 Nucleated Red Blood Cells % 0.0 Neutrophils # 13.7 H Lymphocytes # 2.5 Monocytes # 1.0 H Eosinophils # 0.0 Basophils # 0.0 Nucleated Red Blood Cells # 0.0 Sodium Level 141 Potassium Level 3.8 Chloride Level 101 Carbon Dioxide Level 27 Anion Gap 17 #H Blood Urea Nitrogen 11 Creatinine 0.48 Glucose Level 129 Calcium Level 9.2 Total Bilirubin 0.2 Direct Bilirubin 0.00 Indirect Bilirubin 0.2 Aspartate Amino Transf (AST/SGOT) 30 Alanine Aminotransferase (ALT/SGPT) 30 Alkaline Phosphatase 90 Total Protein 9.0 H Albumin 4.4 Globulin 4.60 H Albumin/Globulin Ratio 0.95 Amylase Level 1717 H Lipase 51462 H Test 07/20/16 17:43 Bedside Glucose 110 Medications Medications Current Medications Ondansetron HCl (Zofran Inj) 4 mg Q6H PRN IV NAUSEA AND/OR VOMITING Last administered on 07/20/16t 14:27; Admin Dose 4 MG; Start 07/08/16 at 20:30 Acetaminophen (Tylenol Tab) 650 mg Q6H PRN PO PAIN AND OR ELEVATED TEMP; Start 07/08/16 at 20:30 Diagnostic Test (Pha) (Accu-Chek) 1 ea 02 XX ; Start 07/09/16 at 02:00 Miscellaneous Information 1 ea NOTE XX ; Start 07/08/16 at 20:30 Glucose (Glutose) 15 gm Q15M PRN PO DECREASED GLUCOSE; Start 07/08/16 at 20:30 Glucose (Glutose) 22.5 gm Q15M PRN PO DECREASED GLUCOSE; Start 07/08/16 at 20:30 Dextrose (D50w Syringe) 25 ml Q15M PRN IV DECREASED GLUCOSE; Start 07/08/16 at 20:30 Dextrose (D50w Syringe) 50 ml Q15M PRN IV DECREASED GLUCOSE; Start 07/08/16 at 20:30 Glucagon (Glucagen) 1 mg Q15M PRN IM DECREASED GLUCOSE; Start 07/08/16 at 20:30 Glucose (Glutose) 15 gm Q15M PRN BUCCAL DECREASED GLUCOSE; Start 07/08/16 at 20: 30 Alprazolam (Xanax) 2 mg BID PO Last administered on 07/20/16 08:32; Admin Dose 2 MG; Start 07/08/16 at 21:00 Sertraline HCl (Zoloft) 200 mg DAILY PO Last administered on 07/18/16 17:05; Admin Dose 200 MG; Start 07/09/16 at 09:00 Losartan Potassium (Cozaar) 25 mg DAILY@21 PO Last administered on 07/19/16 21 :38; Admin Dose 25 MG; Start 07/08/16 at 21:00 Zolpidem Tartrate (Ambien) 5 mg HS PRN PO INSOMNIA Last administered on 01:11; Admin Dose 5 MG; Start 07/08/16 at 21:00 Acetaminophen/ Aspirin/Caffeine (Excedrin) 2 tab DAILY PRN PO HEADACHE Last administered on 07/19/16 20:07; Admin Dose 2 TAB; Start 07/09/16 at 19:30 Hydromorphone HCl (Dilaudid) 0.75 mg Q4H PRN IV PAIN Last administered on 18:19; Admin Dose 0.75 MG; Start 07/10/16 at 19:00 Oxycodone/ Acetaminophen (Percocet (5/ 325)) 1 tab Q6H PRN PO PAIN Last administered on 07/20/16 00:45; Admin Dose 1 TAB; Start 07/11/16 at 15:45 Pantoprazole 40 mg 40 mg DAILY@06 PO Last administered on 07/20/16 05:38; Admin Dose 40 MG; Start 07/14/16 at 06:00 Lactated Ringer's (Lr) 1,000 ml @ 125 mls/hr Q8H IV Last administered on 18:50; Admin Dose 125 MLS/HR; Start 07/20/16 at 18:30 ABNER BALL NP Jul 20, 2016 20:32
[2016-07-20] MEDS: ACETAMINOPHEN 325 MG TAB PO PRN (20:41)
[2016-07-20] MEDS: LOSARTAN 25 MG TAB PO SCH (20:41)
[2016-07-20 22:00] VITALS: BP 149/80; RESP 20
[2016-07-20] MEDS: IMIPENEM-CILAST 500MG IV (PMX) 100 ML IVPB SCH (22:13)
[2016-07-20] MEDS: ZOLPIDEM 5 MG TAB PO PRN (23:24)
[2016-07-21] MEDS: ACCU-CHEK XX SCH (02:00)
[2016-07-21] MEDS: HYDROmorphONE 1 MG/ML SYG IV PRN ×6 (02:18→22:34)
[2016-07-21] MEDS: LACTATED RINGER'S 1,000 ML IV SCH ×3 (02:22→21:46)
[2016-07-21 05:07] LABS: ADD SCAN DIFF NO
[2016-07-21 05:14] LABS: BASOPHIL # 0.1 10^3/ul (0.0-0.1); BASOPHILS % 0.3 % (0.0-2.0); EOSINOPHILS # 0.1 10^3/ul (0.0-0.5); EOSINOPHILS % 0.7 % (0.0-7.0); HEMATOCRIT 36.7 % (37.0-47.0); HEMOGLOBIN 11.6 g/dl (12.0-16.0); LYMPHOCYTES # 4.3 10^3/ul (0.8-2.9); MEAN CORPUSCULAR HEMOGLOBIN 25.9 pg (29.0-33.0); MEAN CORPUSCULAR HGB CONC 31.6 g/dl (32.0-37.0); MEAN CORPUSCULAR VOLUME 81.9 fl (82.0-101.0); MEAN PLATELET VOLUME 9.1 fl (7.4-10.4); MONOCYTE # 1.1 10^3/ul (0.3-0.9); MONOCYTES % 7.5 % (0.0-11.0); NEUTROPHIL # 9.6 10^3/ul (1.6-7.5); NEUTROPHILS % 63.2 % (39.0-77.0); PLATELET COUNT 389 10^3/UL (140-415); RED BLOOD COUNT 4.48 10^6/ul (4.20-5.40); RED CELL DISTRIBUTION WIDTH 15.2 % (11.5-14.5); WHITE BLOOD COUNT 15.2 10^3/ul (4.8-10.8)
[2016-07-21 05:37] LABS: ALBUMIN 3.6 g/dl (3.3-4.9); ALBUMIN/GLOBULIN RATIO 0.94; BILIRUBIN,INDIRECT 0.2 mg/dl (0-1.1); BILIRUBIN,TOTAL 0.2 mg/dl (0.2-1.3); CALCIUM 8.4 mg/dl (8.4-10.2); CREATININE 0.46 mg/dl (0.44-1.00); POTASSIUM 3.3 mmol/L (3.5-5.1); TOTAL PROTEIN 7.4 g/dl (6.1-8.1)
[2016-07-21] MEDS: PANTOPRAZOLE (EC) 40 MG TAB PO SCH (06:00)
[2016-07-21] MEDS: IMIPENEM-CILAST 500MG IV (PMX) 100 ML IVPB SCH ×3 (06:20→22:35)
[2016-07-21 07:35] VITALS: BP 132/75; RESP 18
[2016-07-21] MEDS: INSULIN ASPART [NOVOLOG] 3 ML PEN SC SCH ×4 (08:00→21:00)
[2016-07-21] MEDS: ONDANSETRON 4 MG INJ IV PRN ×3 (08:12→21:46)
[2016-07-21] MEDS: OXYCODONE/ACETAMINOPHEN (5/325) TAB PO PRN ×2 (08:13→15:42)
[2016-07-21] MEDS: SERTRALINE 100 MG TAB PO SCH (08:13)
[2016-07-21] MEDS: ALPRAZOLAM 1 MG TAB PO SCH ×2 (08:13→21:43)
--- NOTE | 2016-07-21 08:27 | PN ---
DATE: 07/18/2016 On 14, we checked the CT scan repeated with oral contrast which did not show any pathology. Actually the contrast within 2 hours has passed completely through the stomach. There was no evidence of obstruction, reviewed with Dr. Saeed and then also showed persistence of a fluid collection which was measured by Dr. Saeed and is documented in the computer report and then Dr. Saeed suggested that they do sinogram through the pigtail catheter to find out where it is draining and if it is going anywhere else, so that is what we did later on this afternoon at night around 6:00 p.m. and the sinogram showed that the contrast goes into the cavity where the tip of the pigtail drain was located, but per Dr. Saeed's report the size of the accumulation is smaller than what it shows on the CT scan which means that probably there is a loculation, another, which attached to the other one which is draining and probably will need another drain, but he did not suggest that one. In any case, I discussed with Dr. Vazquez yesterday and considering bilirubin 7.5 mg percent in the aspirate from the peritoneal cavity, which is very high, so this shows that probably there is evidence that there is some leak from somewhere, but coming into that cavity, so we requested to get Dr. Blair, who has seen the patient before to see the patient for possible ERCP. Today is 07/19/2016. Today Dr. Blair took the patient to the OR and he did the ERCP and actually per his report he found a leak and he put in a stent for the patient. SUBJECTIVE: Now I am seeing the patient at 6:00 p.m. The patient is post ERCP. The patient is alert and awake, oriented. SUBJECTIVE: Feels much better today. Minimal pain. OBJECTIVE: VITAL SIGNS: 98.6, 82, 14, 119/56, 92% saturation with 4 liters of nasal cannula. ABDOMEN: Soft. Pigtail drain is completely brownish fluid, about 40 mL since morning. Abdomen is relatively soft. EXTREMITIES: Lower extremity, no calf tenderness. LABORATORY DATA: Blood sugar is 197. No other lab is available. ASSESSMENT AND PLAN: The patient is with status post laparoscopic cholecystectomy a couple of months ago with persistent presence of fluid around the liver, was drained by pigtail catheter about a week ago in this hospital and MRCP did not show any leak and HIDA scan did not show any leak, but Dr. Blair did eventually ERCP and he reported that he found a leak and he put in a stent. We will watch the patient for a couple of more days to see how the patient is doing and gradually advance the diet to see if she can tolerate or not. Dictated By: BRADLY UGALDE MD PS/NTS Conf#: [id number] DID#: [id number] CC: KATIE COLEMAN MD; JEB VAZQUEZ MD;*EndCC* MTDD
--- NOTE | 2016-07-21 15:53 | CONS ---
Date/Time of Note Date/Time of Note DATE: 07/21/16 TIME: 15:52 Assessment/Plan Assessment/Plan Chief Complaint/Hosp Course SUBJECTIVE: Awake, no fevers, looks comfortable. Abx: Primaxin PHYSICAL EXAMINATION GENERAL: Morbidly obese, middle-aged, woman who is alert, in no distress. HEENT: Head atraumatic, normocephalic. Sclerae are anicteric. Buccal mucosa dry. NECK: Supple. CHEST: Rise symmetrical. Breath sounds clear. HEART: S1, S2. ABDOMEN: Soft, bowel tones present. EXTREMITIES: Without cyanosis. SKIN: No jaundice, no cyanosis. ASSESSMENT: 1. Pancreatitis 2. Status post CT-guided aspiration of intraabdominal fluid on 07/10/2016, fluid cultures negative. 3. Morbid obesity. 4. History of cholecystectomy. 5. Biliary leak, s/p ERCP/stent placement 07/19/16. PLAN: Clinically stable, wbc decreasing, continue abx, f/u GI/surgical rec-s. Panculture p.r.n. staff Problems: Consultation Date/Type/Reason Admit Date/Time Jul 08, 2016 at 18:34 Type of Consultation: ID Exam/Review of Systems Vital Signs Vitals Vital Signs Date Time Temp Pulse Resp B/P Pulse Ox O2 Delivery O2 Flow Rate FiO2 07/21/16 07:35 98.8 83 18 132/75 92 07/19/16 13:24 Nasal Cannula 4.0 Intake and Output 07/20/16 07/20/16 07/21/16 15:00 23:00 07:00 Intake Total 340 ml 1425 ml Output Total 25 ml 25 ml Balance 315 ml 1400 ml Results Result Diagram: 07/21/16 0435 07/21/16 0435 Results 24 hrs Laboratory Tests Test 07/20/16 17:43 07/20/16 20:40 07/21/16 04:35 07/21/16 07:55 Bedside Glucose 110 99 101 White Blood Count 15.2 H Red Blood Count 4.48 Hemoglobin 11.6 L Hematocrit 36.7 L Mean Corpuscular Volume 81.9 L Mean Corpuscular Hemoglobin 25.9 L Mean Corpuscular Hemoglobin Concent 31.6 L Red Cell Distribution Width 15.2 H Platelet Count 389 Mean Platelet Volume 9.1 Neutrophils % 63.2 Lymphocytes % 28.0 Monocytes % 7.5 Eosinophils % 0.7 Basophils % 0.3 Nucleated Red Blood Cells % 0.0 Neutrophils # 9.6 H Lymphocytes # 4.3 H Monocytes # 1.1 H Eosinophils # 0.1 Basophils # 0.1 Nucleated Red Blood Cells # 0.0 Sodium Level 138 Potassium Level 3.3 L Chloride Level 105 Carbon Dioxide Level 27 Anion Gap 9 # Blood Urea Nitrogen 10 Creatinine 0.46 Glucose Level 108 Calcium Level 8.4 Total Bilirubin 0.2 Direct Bilirubin 0.00 Indirect Bilirubin 0.2 Aspartate Amino Transf (AST/SGOT) 18 Alanine Aminotransferase (ALT/SGPT) 28 Alkaline Phosphatase 74 Total Protein 7.4 # Albumin 3.6 Globulin 3.80 H Albumin/Globulin Ratio 0.94 Amylase Level 841 #H Lipase 3402 H Test 07/21/16 11:15 Bedside Glucose 89 Medications Medications Current Medications Ondansetron HCl (Zofran Inj) 4 mg Q6H PRN IV NAUSEA AND/OR VOMITING Last administered on 07/21/16 15:41; Admin Dose 4 MG; Start 07/08/16 at 20:30 Acetaminophen (Tylenol Tab) 650 mg Q6H PRN PO PAIN AND OR ELEVATED TEMP Last administered on 07/20/16 20:41; Admin Dose 650 MG; Start 07/08/16 at 20:30 Diagnostic Test (Pha) (Accu-Chek) 1 ea 02 XX ; Start 07/09/16 at 02:00 Miscellaneous Information 1 ea NOTE XX ; Start 07/08/16 at 20:30 Glucose (Glutose) 15 gm Q15M PRN PO DECREASED GLUCOSE; Start 07/08/16 at 20:30 Glucose (Glutose) 22.5 gm Q15M PRN PO DECREASED GLUCOSE; Start 07/08/16 at 20:30 Dextrose (D50w Syringe) 25 ml Q15M PRN IV DECREASED GLUCOSE; Start 07/08/16 at 20:30 Dextrose (D50w Syringe) 50 ml Q15M PRN IV DECREASED GLUCOSE; Start 07/08/16 at 20:30 Glucagon (Glucagen) 1 mg Q15M PRN IM DECREASED GLUCOSE; Start 07/08/16 at 20:30 Glucose (Glutose) 15 gm Q15M PRN BUCCAL DECREASED GLUCOSE; Start 07/08/16 at 20: 30 Alprazolam (Xanax) 2 mg BID PO Last administered on 07/21/16 08:13; Admin Dose 2 MG; Start 07/08/16 at 21:00 Sertraline HCl (Zoloft) 200 mg DAILY PO Last administered on 07/21/16 08:13; Admin Dose 200 MG; Start 07/09/16 at 09:00 Losartan Potassium (Cozaar) 25 mg DAILY@21 PO Last administered on 07/20/16 20 :41; Admin Dose 25 MG; Start 07/08/16 at 21:00 Zolpidem Tartrate (Ambien) 5 mg HS PRN PO INSOMNIA Last administered on 23:24; Admin Dose 5 MG; Start 07/08/16 at 21:00 Acetaminophen/ Aspirin/Caffeine (Excedrin) 2 tab DAILY PRN PO HEADACHE Last administered on 07/19/16 20:07; Admin Dose 2 TAB; Start 07/09/16 at 19:30 Hydromorphone HCl (Dilaudid) 0.75 mg Q4H PRN IV PAIN Last administered on 14:21; Admin Dose 0.75 MG; Start 07/10/16 at 19:00 Oxycodone/ Acetaminophen (Percocet (5/ 325)) 1 tab Q6H PRN PO PAIN Last administered on 07/21/16 15:42; Admin Dose 1 TAB; Start 07/11/16 at 15:45 Pantoprazole 40 mg 40 mg DAILY@06 PO Last administered on 07/20/16 05:38; Admin Dose 40 MG; Start 07/14/16 at 06:00 Lactated Ringer's 1,000 ml @ 125 mls/hr Q8H IV Last administered on 07/21/16 11:59; Admin Dose 125 MLS/HR; Start 07/20/16 at 18:30 Imipenem/ Cilastatin Sodium (Primaxin 500 Mg/ 100 ml (Pmx)) 100 ml @ 100 mls/ hr Q8 IVPB Last administered on 07/21/16 13:17; Admin Dose 100 MLS/HR; Start 07/20/16 at 22:00 ABNER BALL NP Jul 21, 2016 15:53
--- NOTE | 2016-07-21 16:09 | CONS ---
Date/Time of Note Date/Time of Note DATE: 07/21/16 TIME: 16:07 Assessment/Plan Assessment/Plan Additional Assessment/Plan Additional Assessment/Plan IMPRESSION: 1. Biloma persistent for almost 2 months postoperatively after removal of the gallbladder. 2. Overweight. 3. Status post cholecystectomy. 4. Status post sphincterotomy and placement of a stent for biliary leak 5. Abdominal pain and nausea due to pancreatitis mild Plan N.p.o., Ringer lactate solution at 1 25 cc/h Will follow amylase and lipase, improved Clear liquid diet Discussed with Dr. Nunes. Consultation Date/Type/Reason Admit Date/Time Jul 08, 2016 at 18:34 Type of Consultation: ID [id number] HR Interval Summary Free Text/Dictation Patient feels much better abdomen normal pain has reduced by 90%. As for the patient drainage from the catheter also is reduced Constitutional: improved Exam/Review of Systems Vital Signs Vitals Vital Signs Date Time Temp Pulse Resp B/P Pulse Ox O2 Delivery O2 Flow Rate FiO2 07/21/16 07:35 98.8 83 18 132/75 92 07/19/16 13:24 Nasal Cannula 4.0 Intake and Output 07/20/16 07/20/16 07/21/16 14:59 22:59 06:59 Intake Total 340 ml 1425 ml Output Total 25 ml 25 ml Balance 315 ml 1400 ml Exam Constitutional: alert, oriented, well developed Psych: nl mood/affect, no complaints Head: atraumatic, normocephalic Eyes: EOMI, PERRL, nl conjunctiva, nl lids, nl sclera ENMT: nl external ears & nose, nl lips & teeth, nl nasal mucosa & septum Neck: non-tender, supple Respiratory: clear to auscultation, normal air movement Cardiovascular: nl pulses, regular rate and rhythm Gastrointestinal: nl liver, spleen, non-tender, soft Musculoskeletal: nl extremities to inspection, nl gait and stance Extremities: normal pulses 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, nl mental status, nl speech, nl strength Skin: nl turgor, No rash or lesions Lymph: nl lymph nodes Results Result Diagram: 07/21/16 0435 07/21/16 0435 Results 24 hrs Laboratory Tests Test 07/20/16 17:43 07/20/16 20:40 07/21/16 04:35 07/21/16 07:55 Bedside Glucose 110 99 101 White Blood Count 15.2 H Red Blood Count 4.48 Hemoglobin 11.6 L Hematocrit 36.7 L Mean Corpuscular Volume 81.9 L Mean Corpuscular Hemoglobin 25.9 L Mean Corpuscular Hemoglobin Concent 31.6 L Red Cell Distribution Width 15.2 H Platelet Count 389 Mean Platelet Volume 9.1 Neutrophils % 63.2 Lymphocytes % 28.0 Monocytes % 7.5 Eosinophils % 0.7 Basophils % 0.3 Nucleated Red Blood Cells % 0.0 Neutrophils # 9.6 H Lymphocytes # 4.3 H Monocytes # 1.1 H Eosinophils # 0.1 Basophils # 0.1 Nucleated Red Blood Cells # 0.0 Sodium Level 138 Potassium Level 3.3 L Chloride Level 105 Carbon Dioxide Level 27 Anion Gap 9 # Blood Urea Nitrogen 10 Creatinine 0.46 Glucose Level 108 Calcium Level 8.4 Total Bilirubin 0.2 Direct Bilirubin 0.00 Indirect Bilirubin 0.2 Aspartate Amino Transf (AST/SGOT) 18 Alanine Aminotransferase (ALT/SGPT) 28 Alkaline Phosphatase 74 Total Protein 7.4 # Albumin 3.6 Globulin 3.80 H Albumin/Globulin Ratio 0.94 Amylase Level 841 #H Lipase 3402 H Test 07/21/16 11:15 Bedside Glucose 89 Medications Medications Current Medications Ondansetron HCl (Zofran Inj) 4 mg Q6H PRN IV NAUSEA AND/OR VOMITING Last administered on 07/21/16 15:41; Admin Dose 4 MG; Start 07/08/16 at 20:30 Acetaminophen (Tylenol Tab) 650 mg Q6H PRN PO PAIN AND OR ELEVATED TEMP Last administered on 07/20/16 20:41; Admin Dose 650 MG; Start 07/08/16 at 20:30 Diagnostic Test (Pha) (Accu-Chek) 1 ea 02 XX ; Start 07/09/16 at 02:00 Miscellaneous Information 1 ea NOTE XX ; Start 07/08/16 at 20:30 Glucose (Glutose) 15 gm Q15M PRN PO DECREASED GLUCOSE; Start 07/08/16 at 20:30 Glucose (Glutose) 22.5 gm Q15M PRN PO DECREASED GLUCOSE; Start 07/08/16 at 20:30 Dextrose (D50w Syringe) 25 ml Q15M PRN IV DECREASED GLUCOSE; Start 07/08/16 at 20:30 Dextrose (D50w Syringe) 50 ml Q15M PRN IV DECREASED GLUCOSE; Start 07/08/16 at 20:30 Glucagon (Glucagen) 1 mg Q15M PRN IM DECREASED GLUCOSE; Start 07/08/16 at 20:30 Glucose (Glutose) 15 gm Q15M PRN BUCCAL DECREASED GLUCOSE; Start 07/08/16 at 20: 30 Alprazolam (Xanax) 2 mg BID PO Last administered on 07/21/16 08:13; Admin Dose 2 MG; Start 07/08/16 at 21:00 Sertraline HCl (Zoloft) 200 mg DAILY PO Last administered on 07/21/16 08:13; Admin Dose 200 MG; Start 07/09/16 at 09:00 Losartan Potassium (Cozaar) 25 mg DAILY@21 PO Last administered on 07/20/16 20 :41; Admin Dose 25 MG; Start 07/08/16 at 21:00 Zolpidem Tartrate (Ambien) 5 mg HS PRN PO INSOMNIA Last administered on 23:24; Admin Dose 5 MG; Start 07/08/16 at 21:00 Acetaminophen/ Aspirin/Caffeine (Excedrin) 2 tab DAILY PRN PO HEADACHE Last administered on 07/19/16 20:07; Admin Dose 2 TAB; Start 07/09/16 at 19:30 Hydromorphone HCl (Dilaudid) 0.75 mg Q4H PRN IV PAIN Last administered on 14:21; Admin Dose 0.75 MG; Start 07/10/16 at 19:00 Oxycodone/ Acetaminophen (Percocet (5/ 325)) 1 tab Q6H PRN PO PAIN Last administered on 07/21/16 15:42; Admin Dose 1 TAB; Start 07/11/16 at 15:45 Pantoprazole 40 mg 40 mg DAILY@06 PO Last administered on 07/20/16 05:38; Admin Dose 40 MG; Start 07/14/16 at 06:00 Lactated Ringer's 1,000 ml @ 125 mls/hr Q8H IV Last administered on 07/21/16 11:59; Admin Dose 125 MLS/HR; Start 07/20/16 at 18:30 Imipenem/ Cilastatin Sodium (Primaxin 500 Mg/ 100 ml (Pmx)) 100 ml @ 100 mls/ hr Q8 IVPB Last administered on 07/21/16t 13:17; Admin Dose 100 MLS/HR; Start 07/20/16 at 22:00 JESUS AGUILAR MD Jul 21, 2016 16:09
[2016-07-21] MEDS ORDERED: POTASSIUM CHLORIDE (SR) 20 MEQ TAB PO STA (17:04)
--- NOTE | 2016-07-21 17:43 | PN ---
Date/Time of Note Date/Time of Note DATE: 07/21/16 TIME: 17:41 Assessment/Plan VTE Prophylaxis VTE Prophylaxis Intervention: other Lines/Catheters IV Catheter Type (from [facility]): Peripheral IV Urinary Cath still in place: No Assessment/Plan Chief Complaint/Hosp Course IMPRESSION: 1. hx cholecystectomy 2.s/ Post-fluid collection around the liver, biloma. s/p ercp and stent The patient has a history of pneumonia, chronic obstructive pulmonary disease, history of obesity. Patient has a history of cholecystectomy, history of appendectomy. 3 leucocytosis 4 s/p ir drainage of abd fluid 5s/p ercp and stent placement 6 pancreatitis better plan antibiotic ck cath drainage per surgery hida neg per dr martin and dr maddox labs kub kcl Problems: Subjective 24 Hr Interval Summary Cardiovascular: no complaints Gastrointestinal: pain (better) Exam/Review of Systems Vital Signs Vitals Vital Signs Date Time Temp Pulse Resp B/P Pulse Ox O2 Delivery O2 Flow Rate FiO2 07/21/16 07:35 98.8 83 18 132/75 92 07/19/16 13:24 Nasal Cannula 4.0 Intake and Output 07/20/16 07/20/16 07/21/16 15:00 23:00 07:00 Intake Total 340 ml 1425 ml Output Total 25 ml 25 ml Balance 315 ml 1400 ml Exam Neck: supple Respiratory: clear to auscultation Cardiovascular: regular rate and rhythm Gastrointestinal: bowel sounds (+) Results Result Diagram: 07/21/16 0435 07/21/16 0435 Results 24 hrs Laboratory Tests Test 07/20/16 17:43 07/20/16 20:40 07/21/16 04:35 07/21/16 07:55 Bedside Glucose 110 99 101 White Blood Count 15.2 H Red Blood Count 4.48 Hemoglobin 11.6 L Hematocrit 36.7 L Mean Corpuscular Volume 81.9 L Mean Corpuscular Hemoglobin 25.9 L Mean Corpuscular Hemoglobin Concent 31.6 L Red Cell Distribution Width 15.2 H Platelet Count 389 Mean Platelet Volume 9.1 Neutrophils % 63.2 Lymphocytes % 28.0 Monocytes % 7.5 Eosinophils % 0.7 Basophils % 0.3 Nucleated Red Blood Cells % 0.0 Neutrophils # 9.6 H Lymphocytes # 4.3 H Monocytes # 1.1 H Eosinophils # 0.1 Basophils # 0.1 Nucleated Red Blood Cells # 0.0 Sodium Level 138 Potassium Level 3.3 L Chloride Level 105 Carbon Dioxide Level 27 Anion Gap 9 # Blood Urea Nitrogen 10 Creatinine 0.46 Glucose Level 108 Calcium Level 8.4 Total Bilirubin 0.2 Direct Bilirubin 0.00 Indirect Bilirubin 0.2 Aspartate Amino Transf (AST/SGOT) 18 Alanine Aminotransferase (ALT/SGPT) 28 Alkaline Phosphatase 74 Total Protein 7.4 # Albumin 3.6 Globulin 3.80 H Albumin/Globulin Ratio 0.94 Amylase Level 841 #H Lipase 3402 H Test 07/21/16 11:15 07/21/16 16:46 Bedside Glucose 89 93 Medications Medications Current Medications Ondansetron HCl (Zofran Inj) 4 mg Q6H PRN IV NAUSEA AND/OR VOMITING Last administered on 07/21/16 15:41; Admin Dose 4 MG; Start 07/08/16 at 20:30 Acetaminophen (Tylenol Tab) 650 mg Q6H PRN PO PAIN AND OR ELEVATED TEMP Last administered on 07/20/16 20:41; Admin Dose 650 MG; Start 07/08/16 at 20:30 Diagnostic Test (Pha) (Accu-Chek) 1 ea 02 XX ; Start 07/09/16 at 02:00 Miscellaneous Information 1 ea NOTE XX ; Start 07/08/16 at 20:30 Glucose (Glutose) 15 gm Q15M PRN PO DECREASED GLUCOSE; Start 07/08/16 at 20:30 Glucose (Glutose) 22.5 gm Q15M PRN PO DECREASED GLUCOSE; Start 07/08/16 at 20:30 Dextrose (D50w Syringe) 25 ml Q15M PRN IV DECREASED GLUCOSE; Start 07/08/16 at 20:30 Dextrose (D50w Syringe) 50 ml Q15M PRN IV DECREASED GLUCOSE; Start 07/08/16 at 20:30 Glucagon (Glucagen) 1 mg Q15M PRN IM DECREASED GLUCOSE; Start 07/08/16 at 20:30 Glucose (Glutose) 15 gm Q15M PRN BUCCAL DECREASED GLUCOSE; Start 07/08/16 at 20: 30 Alprazolam (Xanax) 2 mg BID PO Last administered on 07/21/16 08:13; Admin Dose 2 MG; Start 07/08/16 at 21:00 Sertraline HCl (Zoloft) 200 mg DAILY PO Last administered on 07/21/16 08:13; Admin Dose 200 MG; Start 07/09/16 at 09:00 Losartan Potassium (Cozaar) 25 mg DAILY@21 PO Last administered on 07/20/16 20 :41; Admin Dose 25 MG; Start 07/08/16 at 21:00 Zolpidem Tartrate (Ambien) 5 mg HS PRN PO INSOMNIA Last administered on 23:24; Admin Dose 5 MG; Start 07/08/16 at 21:00 Acetaminophen/ Aspirin/Caffeine (Excedrin) 2 tab DAILY PRN PO HEADACHE Last administered on 07/19/16 20:07; Admin Dose 2 TAB; Start 07/09/16 at 19:30 Hydromorphone HCl (Dilaudid) 0.75 mg Q4H PRN IV PAIN Last administered on 14:21; Admin Dose 0.75 MG; Start 07/10/16 at 19:00 Oxycodone/ Acetaminophen (Percocet (5/ 325)) 1 tab Q6H PRN PO PAIN Last administered on 07/21/16 15:42; Admin Dose 1 TAB; Start 07/11/16 at 15:45 Pantoprazole 40 mg 40 mg DAILY@06 PO Last administered on 07/20/16 05:38; Admin Dose 40 MG; Start 07/14/16 at 06:00 Lactated Ringer's 1,000 ml @ 125 mls/hr Q8H IV Last administered on 07/21/16 11:59; Admin Dose 125 MLS/HR; Start 07/20/16 at 18:30 Imipenem/ Cilastatin Sodium (Primaxin 500 Mg/ 100 ml (Pmx)) 100 ml @ 100 mls/ hr Q8 IVPB Last administered on 07/21/16 13:17; Admin Dose 100 MLS/HR; Start 07/20/16 at 22:00 JEB VAZQUEZ MD Jul 21, 2016 17:43
[2016-07-21] MEDS: ACETAMINOPHEN 325 MG TAB PO PRN (18:28)
--- NOTE | 2016-07-21 19:22 | PN ---
DATE: 07/21/2016 SUBJECTIVE: States that she feels better. The pressure around the epigastric area is less than few days ago and yesterday. No nausea, no vomiting today. OBJECTIVE: VITAL SIGNS: Temperature 98.8, heart rate 83 regular, respirations 18, blood pressure 132/75, satur ation 92% on room air. LABORATORY DATA: Amylase dropped to 841 and lipase dropped to 3402 (it was 1717 amylase and 15,151 lipase respectively yesterday). WBC dropped to 15,200 with 63% segmented neutrophils. Hemoglobin 1 1.6, hematocrit 36.7. ABDOMEN: Softer. Less tenderness in the epigastric area. ASSESSMENT AND PLAN: A 36-year-old female who had ERCP and sphincterotomy on Thursday, 2 days ago, for possible persistent leakage, which proved to be leaking, and sphincterotomy and stent placement. Following that yesterday, the patient developed pain in epigastric area and bilateral subcostal an d the lipase went up to 15,000. So with the impression of post-ERCP pancreatitis. The patient kept n.p.o. Today, she feels much better. The elevated lipase trending down. Leukocyte count is trend ing down. PLAN: Continue current care. Patient has been started on clear liquids by Dr. Blair. We will con tinue that and monitor. Dictated By: BRADLY UGALDE MD PS/NTS Conf#: [id number] DID#: [id number] CC: JEB VAZQUEZ MD;*EndCC*
[2016-07-21 20:20] VITALS: BP 115/55; RESP 18
[2016-07-21] MEDS: LOSARTAN 25 MG TAB PO SCH (21:43)
[2016-07-22] MEDS: ZOLPIDEM 5 MG TAB PO PRN ×2 (00:59→23:49)
[2016-07-22] MEDS: ACCU-CHEK XX SCH (02:00)
[2016-07-22] MEDS: LACTATED RINGER'S 1,000 ML IV SCH ×2 (02:30→08:14)
[2016-07-22] MEDS: HYDROmorphONE 1 MG/ML SYG IV PRN ×5 (03:41→21:22)
[2016-07-22 05:42] LABS: ADD SCAN DIFF NO
[2016-07-22 06:05] LABS: AMYLASE 238 U/L (11-123)
[2016-07-22] MEDS: IMIPENEM-CILAST 500MG IV (PMX) 100 ML IVPB SCH ×3 (06:06→21:59)
[2016-07-22] MEDS: PANTOPRAZOLE (EC) 40 MG TAB PO SCH (06:06)
[2016-07-22 06:28] LABS: BASOPHIL # 0.1 10^3/ul (0.0-0.1); BASOPHILS % 0.4 % (0.0-2.0); EOSINOPHILS # 0.3 10^3/ul (0.0-0.5); EOSINOPHILS % 2.3 % (0.0-7.0); HEMATOCRIT 35.4 % (37.0-47.0); HEMOGLOBIN 11.1 g/dl (12.0-16.0); LYMPHOCYTES % 28.5 % (15.0-51.0); MEAN CORPUSCULAR HEMOGLOBIN 26.1 pg (29.0-33.0); MEAN CORPUSCULAR HGB CONC 31.4 g/dl (32.0-37.0); MEAN CORPUSCULAR VOLUME 83.3 fl (82.0-101.0); MEAN PLATELET VOLUME 9.3 fl (7.4-10.4); MONOCYTES % 7.2 % (0.0-11.0); NEUTROPHIL # 8.6 10^3/ul (1.6-7.5); NEUTROPHILS % 61.2 % (39.0-77.0); PLATELET COUNT 337 10^3/UL (140-415); RED BLOOD COUNT 4.25 10^6/ul (4.20-5.40); RED CELL DISTRIBUTION WIDTH 15.4 % (11.5-14.5); WHITE BLOOD COUNT 14.1 10^3/ul (4.8-10.8)
[2016-07-22 07:58] VITALS: BP 114/65; RESP 18
[2016-07-22] MEDS: INSULIN ASPART [NOVOLOG] 3 ML PEN SC SCH ×4 (08:00→21:00)
[2016-07-22] MEDS: ALPRAZOLAM 1 MG TAB PO SCH ×2 (08:14→21:22)
[2016-07-22] MEDS: SERTRALINE 100 MG TAB PO SCH (08:14)
[2016-07-22] MEDS: ONDANSETRON 4 MG INJ IV PRN ×2 (08:17→17:21)
--- NOTE | 2016-07-22 10:07 | CONS ---
Date/Time of Note Date/Time of Note DATE: 07/22/16 TIME: 10:06 Assessment/Plan Assessment/Plan Additional Assessment/Plan IMPRESSION: 1. Biloma persistent for almost 2 months postoperatively after removal of the gallbladder. 2. Overweight. 3. Status post cholecystectomy. 4. Status post sphincterotomy and placement of a stent for biliary leak 5. Abdominal pain and nausea due to pancreatitis mild Plan N.p.o., Ringer lactate solution at 1 25 cc/h amylase and lipase, improved Clear liquid diet, advance to regular low-fat diet. Patient needs to lose weight also Consultation Date/Type/Reason Admit Date/Time Jul 08, 2016 at 18:34 Type of Consultation: ID 24 HR Interval Summary Free Text/Dictation Pain is minimal. No nausea no vomiting Constitutional: improved Exam/Review of Systems Vital Signs Vitals Vital Signs Date Time Temp Pulse Resp B/P Pulse Ox O2 Delivery O2 Flow Rate FiO2 07/22/16 07:58 98.9 81 18 114/65 100 07/19/16 13:24 Nasal Cannula 4.0 Intake and Output 07/21/16 07/21/16 07/22/16 15:00 23:00 07:00 Intake Total 875 ml 1290 ml 1285 ml Output Total 20 ml Balance 875 ml 1270 ml 1285 ml Exam Constitutional: alert, oriented, well developed Psych: nl mood/affect, no complaints Head: atraumatic, normocephalic Eyes: EOMI, PERRL, nl conjunctiva, nl lids, nl sclera ENMT: nl external ears & nose, nl lips & teeth, nl nasal mucosa & septum Neck: non-tender, supple Respiratory: clear to auscultation, normal air movement Cardiovascular: nl pulses, regular rate and rhythm Gastrointestinal: nl liver, spleen, non-tender, soft Musculoskeletal: nl extremities to inspection, nl gait and stance Extremities: normal pulses Neurological: MACHINE PULLER AND LASTER II-XII intact, nl mental status, nl speech, nl strength Skin: nl turgor, No rash or lesions Lymph: nl lymph nodes Results Result Diagram: 07/22/16 0505 07/21/16 0435 Results 24 hrs Laboratory Tests Test 07/21/16 11:15 07/21/16 16:46 07/21/16 21:53 07/22/16 05:05 Bedside Glucose 89 93 94 White Blood Count 14.1 H Red Blood Count 4.25 Hemoglobin 11.1 L Hematocrit 35.4 L Mean Corpuscular Volume 83.3 Mean Corpuscular Hemoglobin 26.1 L Mean Corpuscular Hemoglobin Concent 31.4 L Red Cell Distribution Width 15.4 H Platelet Count 337 Mean Platelet Volume 9.3 Neutrophils % 61.2 Lymphocytes % 28.5 Monocytes % 7.2 Eosinophils % 2.3 Basophils % 0.4 Nucleated Red Blood Cells % 0.0 Neutrophils # 8.6 H Lymphocytes # 4.0 H Monocytes # 1.0 H Eosinophils # 0.3 Basophils # 0.1 Nucleated Red Blood Cells # 0.0 Amylase Level 238 #H Lipase 280 Test 07/22/16 07:46 Bedside Glucose 86 Medications Medications Current Medications Ondansetron HCl (Zofran Inj) 4 mg Q6H PRN IV NAUSEA AND/OR VOMITING Last administered on 07/22/16 08:17; Admin Dose 4 MG; Start 07/08/16 at 20:30 Acetaminophen (Tylenol Tab) 650 mg Q6H PRN PO PAIN AND OR ELEVATED TEMP Last administered on 07/21/16 18:28; Admin Dose 650 MG; Start 07/08/16 at 20:30 Diagnostic Test (Pha) (Accu-Chek) 1 ea 02 XX ; Start 07/09/16 at 02:00 Miscellaneous Information 1 ea NOTE XX ; Start 07/08/16 at 20:30 Glucose (Glutose) 15 gm Q15M PRN PO DECREASED GLUCOSE; Start 07/08/16 at 20:30 Glucose (Glutose) 22.5 gm Q15M PRN PO DECREASED GLUCOSE; Start 07/08/16 at 20:30 Dextrose (D50w Syringe) 25 ml Q15M PRN IV DECREASED GLUCOSE; Start 07/08/16 at 20:30 Dextrose (D50w Syringe) 50 ml Q15M PRN IV DECREASED GLUCOSE; Start 07/08/16 at 20:30 Glucagon (Glucagen) 1 mg Q15M PRN IM DECREASED GLUCOSE; Start 07/08/16 at 20:30 Glucose (Glutose) 15 gm Q15M PRN BUCCAL DECREASED GLUCOSE; Start 07/08/16 at 20: 30 Alprazolam (Xanax) 2 mg BID PO Last administered on 07/22/16 08:14; Admin Dose 2 MG; Start 07/08/16 at 21:00 Sertraline HCl (Zoloft) 200 mg DAILY PO Last administered on 07/22/16 08:14; Admin Dose 200 MG; Start 07/09/16 at 09:00 Losartan Potassium (Cozaar) 25 mg DAILY@21 PO Last administered on 07/21/16 21 :43; Admin Dose 25 MG; Start 07/08/16 at 21:00 Zolpidem Tartrate (Ambien) 5 mg HS PRN PO INSOMNIA Last administered on 00:59; Admin Dose 5 MG; Start 07/08/16 at 21:00 Acetaminophen/ Aspirin/Caffeine (Excedrin) 2 tab DAILY PRN PO HEADACHE Last administered on 07/19/16 20:07; Admin Dose 2 TAB; Start 07/09/16 at 19:30 Hydromorphone HCl (Dilaudid) 0.75 mg Q4H PRN IV PAIN Last administered on 07:44; Admin Dose 0.75 MG; Start 07/10/16 at 19:00 Oxycodone/ Acetaminophen (Percocet (5/ 325)) 1 tab Q6H PRN PO PAIN Last administered on 07/21/16 15:42; Admin Dose 1 TAB; Start 07/11/16 at 15:45 Pantoprazole 40 mg 40 mg DAILY@06 PO Last administered on 07/22/16 06:06; Admin Dose 40 MG; Start 07/14/16 at 06:00 Lactated Ringer's 1,000 ml @ 50 mls/hr Q20H IV Last administered on 07/22/16 08:14; Admin Dose 50 MLS/HR; Start 07/20/16 at 18:30 Imipenem/ Cilastatin Sodium (Primaxin 500 Mg/ 100 ml (Pmx)) 100 ml @ 100 mls/ hr Q8 IVPB Last administered on 07/22/16 06:06; Admin Dose 100 MLS/HR; Start 07/20/16 at 22:00 Simethicone (Mylicon) 80 mg BID PO Last administered on 07/22/16 08:14; Admin Dose 80 MG; Start 07/21/16 at 23:00 JESUS AGUILAR MD Jul 22, 2016 10:07
--- NOTE | 2016-07-22 17:46 | CONS ---
Date/Time of Note Date/Time of Note DATE: 07/22/16 TIME: 17:44 Assessment/Plan Assessment/Plan Chief Complaint/Hosp Course SUBJECTIVE: Awake, tolerates clears, no fevers, no n./v/d Abx: Primaxin PHYSICAL EXAMINATION GENERAL: Morbidly obese, middle-aged, woman who is alert, in no distress. HEENT: Head atraumatic, normocephalic. Sclerae are anicteric. Buccal mucosa dry. NECK: Supple. CHEST: Rise symmetrical. Breath sounds clear. HEART: S1, S2. ABDOMEN: Soft, bowel tones present. EXTREMITIES: Without cyanosis. SKIN: No jaundice, no cyanosis. ASSESSMENT: 1. Pancreatitis, s/p ERCP 2. Status post CT-guided aspiration of intraabdominal fluid on 07/10/2016, fluid cultures negative. 3. Morbid obesity. 4. History of cholecystectomy. 5. Biliary leak, s/p ERCP/stent placement 07/19/16. PLAN: Improving, continue abx, f/u GI/surgical rec-s. DW staff Problems: Consultation Date/Type/Reason Admit Date/Time Jul 08, 2016 at 18:34 Type of Consultation: ID Exam/Review of Systems Vital Signs Vitals Vital Signs Date Time Temp Pulse Resp B/P Pulse Ox O2 Delivery O2 Flow Rate FiO2 07/22/16 07:58 98.9 81 18 114/65 100 07/19/16 13:24 Nasal Cannula 4.0 Intake and Output 07/21/16 07/21/16 07/22/16 15:00 23:00 07:00 Intake Total 875 ml 1290 ml 1285 ml Output Total 20 ml Balance 875 ml 1270 ml 1285 ml Results Result Diagram: 07/22/16 0505 07/21/16 0435 Results 24 hrs Laboratory Tests Test 07/21/16 21:53 07/22/16 05:05 07/22/16 07:46 07/22/16 11:54 Bedside Glucose 94 86 82 White Blood Count 14.1 H Red Blood Count 4.25 Hemoglobin 11.1 L Hematocrit 35.4 L Mean Corpuscular Volume 83.3 Mean Corpuscular Hemoglobin 26.1 L Mean Corpuscular Hemoglobin Concent 31.4 L Red Cell Distribution Width 15.4 H Platelet Count 337 Mean Platelet Volume 9.3 Neutrophils % 61.2 Lymphocytes % 28.5 Monocytes % 7.2 Eosinophils % 2.3 Basophils % 0.4 Nucleated Red Blood Cells % 0.0 Neutrophils # 8.6 H Lymphocytes # 4.0 H Monocytes # 1.0 H Eosinophils # 0.3 Basophils # 0.1 Nucleated Red Blood Cells # 0.0 Amylase Level 238 #H Lipase 280 Test 07/22/16 12:46 07/22/16 13:04 07/22/16 16:56 Lab Scanned Report REFERENCE LAB REFERENCE LAB Bedside Glucose 96 Medications Medications Current Medications Ondansetron HCl (Zofran Inj) 4 mg Q6H PRN IV NAUSEA AND/OR VOMITING Last administered on 07/22/16 17:21; Admin Dose 4 MG; Start 07/08/16 at 20:30 Acetaminophen (Tylenol Tab) 650 mg Q6H PRN PO PAIN AND OR ELEVATED TEMP Last administered on 07/21/16 18:28; Admin Dose 650 MG; Start 07/08/16 at 20:30 Diagnostic Test (Pha) (Accu-Chek) 1 ea 02 XX ; Start 07/09/16 at 02:00 Miscellaneous Information 1 ea NOTE XX ; Start 07/08/16 at 20:30 Glucose (Glutose) 15 gm Q15M PRN PO DECREASED GLUCOSE; Start 07/08/16 at 20:30 Glucose (Glutose) 22.5 gm Q15M PRN PO DECREASED GLUCOSE; Start 07/08/16 at 20:30 Dextrose (D50w Syringe) 25 ml Q15M PRN IV DECREASED GLUCOSE; Start 07/08/16 at 20:30 Dextrose (D50w Syringe) 50 ml Q15M PRN IV DECREASED GLUCOSE; Start 07/08/16 at 20:30 Glucagon (Glucagen) 1 mg Q15M PRN IM DECREASED GLUCOSE; Start 07/08/16 at 20:30 Glucose (Glutose) 15 gm Q15M PRN BUCCAL DECREASED GLUCOSE; Start 07/08/16 at 20: 30 Alprazolam (Xanax) 2 mg BID PO Last administered on 07/22/16 08:14; Admin Dose 2 MG; Start 07/08/16 at 21:00 Sertraline HCl (Zoloft) 200 mg DAILY PO Last administered on 07/22/16 08:14; Admin Dose 200 MG; Start 07/09/16 at 09:00 Losartan Potassium (Cozaar) 25 mg DAILY@21 PO Last administered on 07/21/16 21 :43; Admin Dose 25 MG; Start 07/08/16 at 21:00 Zolpidem Tartrate (Ambien) 5 mg HS PRN PO INSOMNIA Last administered on 00:59; Admin Dose 5 MG; Start 07/08/16 at 21:00 Acetaminophen/ Aspirin/Caffeine (Excedrin) 2 tab DAILY PRN PO HEADACHE Last administered on 07/19/16 20:07; Admin Dose 2 TAB; Start 07/09/16 at 19:30 Hydromorphone HCl (Dilaudid) 0.75 mg Q4H PRN IV PAIN Last administered on 17:13; Admin Dose 0.75 MG; Start 07/10/16 at 19:00 Oxycodone/ Acetaminophen (Percocet (5/ 325)) 1 tab Q6H PRN PO PAIN Last administered on 07/21/16 15:42; Admin Dose 1 TAB; Start 07/11/16 at 15:45 Pantoprazole 40 mg 40 mg DAILY@06 PO Last administered on 07/22/16 06:06; Admin Dose 40 MG; Start 07/14/16 at 06:00 Lactated Ringer's 1,000 ml @ 50 mls/hr Q20H IV Last administered on 07/22/16 08:14; Admin Dose 50 MLS/HR; Start 07/20/16 at 18:30 Imipenem/ Cilastatin Sodium (Primaxin 500 Mg/ 100 ml (Pmx)) 100 ml @ 100 mls/ hr Q8 IVPB Last administered on 07/22/16 14:03; Admin Dose 100 MLS/HR; Start 07/20/16 at 22:00 Simethicone (Mylicon) 80 mg BID PO Last administered on 07/22/16 08:14; Admin Dose 80 MG; Start 07/21/16 at 23:00 ABNER BALL NP Jul 22, 2016 17:46
--- NOTE | 2016-07-22 18:06 | PN ---
Date/Time of Note Date/Time of Note DATE: 07/22/16 TIME: 18:05 Assessment/Plan VTE Prophylaxis VTE Prophylaxis Intervention: other Lines/Catheters IV C[facility]ter Type (from [facility] Peripheral IV Urinary Cath still in place: No Assessment/Plan Chief Complaint/Hosp Course IMPRESSION: 1. hx cholecystectomy 2.s/ Post-fluid collection around the liver, biloma. s/p ercp and stent The patient has a history of pneumonia, chronic obstructive pulmonary disease, history of obesity. Patient has a history of cholecystectomy, history of appendectomy. 3 leucocytosis 4 s/p ir drainage of abd fluid 5s/p ercp and stent placement 6 pancreatitis better plan antibiotic ck cath drainage per surgery hida neg per dr martin and dr maddox labs Problems: Subjective 24 Hr Interval Summary Subjective hx not possible: other (d/w dr martin to leave drainage cath in) Exam/Review of Systems Vital Signs Vitals Vital Signs Date Time Temp Pulse Resp B/P Pulse Ox O2 Delivery O2 Flow Rate FiO2 07/22/16 07:58 98.9 81 18 114/65 100 07/19/16 13:24 Nasal Cannula 4.0 Intake and Output 07/21/16 07/21/16 07/22/16 15:00 23:00 07:00 Intake Total 875 ml 1290 ml 1285 ml Output Total 20 ml Balance 875 ml 1270 ml 1285 ml Exam Neck: supple Respiratory: clear to auscultation Cardiovascular: regular rate and rhythm Gastrointestinal: non-tender, soft Musculoskeletal: nl extremities to inspection Extremities: normal pulses Results Result Diagram: 07/22/16 0505 07/21/16 0435 Results 24 hrs Laboratory Tests Test 07/21/16 21:53 07/22/16 05:05 07/22/16 07:46 07/22/16 11:54 Bedside Glucose 94 86 82 White Blood Count 14.1 H Red Blood Count 4.25 Hemoglobin 11.1 L Hematocrit 35.4 L Mean Corpuscular Volume 83.3 Mean Corpuscular Hemoglobin 26.1 L Mean Corpuscular Hemoglobin Concent 31.4 L Red Cell Distribution Width 15.4 H Platelet Count 337 Mean Platelet Volume 9.3 Neutrophils % 61.2 Lymphocytes % 28.5 Monocytes % 7.2 Eosinophils % 2.3 Basophils % 0.4 Nucleated Red Blood Cells % 0.0 Neutrophils # 8.6 H Lymphocytes # 4.0 H Monocytes # 1.0 H Eosinophils # 0.3 Basophils # 0.1 Nucleated Red Blood Cells # 0.0 Amylase Level 238 #H Lipase 280 Test 07/22/16 12:46 07/22/16 13:04 07/22/16 16:56 Lab Scanned Report REFERENCE LAB REFERENCE LAB Bedside Glucose 96 Medications Medications Current Medications Ondansetron HCl (Zofran Inj) 4 mg Q6H PRN IV NAUSEA AND/OR VOMITING Last administered on 07/22/16 17:21; Admin Dose 4 MG; Start 07/08/16 at 20:30 Acetaminophen (Tylenol Tab) 650 mg Q6H PRN PO PAIN AND OR ELEVATED TEMP Last administered on 07/21/16 18:28; Admin Dose 650 MG; Start 07/08/16 at 20:30 Diagnostic Test (Pha) (Accu-Chek) 1 ea 02 XX ; Start 07/09/16 at 02:00 Miscellaneous Information 1 ea NOTE XX ; Start 07/08/16 at 20:30 Glucose (Glutose) 15 gm Q15M PRN PO DECREASED GLUCOSE; Start 07/08/16 at 20:30 Glucose (Glutose) 22.5 gm Q15M PRN PO DECREASED GLUCOSE; Start 07/08/16 at 20:30 Dextrose (D50w Syringe) 25 ml Q15M PRN IV DECREASED GLUCOSE; Start 07/08/16 at 20:30 Dextrose (D50w Syringe) 50 ml Q15M PRN IV DECREASED GLUCOSE; Start 07/08/16 at 20:30 Glucagon (Glucagen) 1 mg Q15M PRN IM DECREASED GLUCOSE; Start 07/08/16 at 20:30 Glucose (Glutose) 15 gm Q15M PRN BUCCAL DECREASED GLUCOSE; Start 07/08/16 at 20: 30 Alprazolam (Xanax) 2 mg BID PO Last administered on 07/22/16 08:14; Admin Dose 2 MG; Start 07/08/16 at 21:00 Sertraline HCl (Zoloft) 200 mg DAILY PO Last administered on 07/22/16 08:14; Admin Dose 200 MG; Start 07/09/16 at 09:00 Losartan Potassium (Cozaar) 25 mg DAILY@21 PO Last administered on 07/21/16 21 :43; Admin Dose 25 MG; Start 07/08/16 at 21:00 Zolpidem Tartrate (Ambien) 5 mg HS PRN PO INSOMNIA Last administered on 00:59; Admin Dose 5 MG; Start 07/08/16 at 21:00 Acetaminophen/ Aspirin/Caffeine (Excedrin) 2 tab DAILY PRN PO HEADACHE Last administered on 07/19/16 20:07; Admin Dose 2 TAB; Start 07/09/16 at 19:30 Hydromorphone HCl (Dilaudid) 0.75 mg Q4H PRN IV PAIN Last administered on 17:13; Admin Dose 0.75 MG; Start 07/10/16 at 19:00 Oxycodone/ Acetaminophen (Percocet (5/ 325)) 1 tab Q6H PRN PO PAIN Last administered on 07/21/16 15:42; Admin Dose 1 TAB; Start 07/11/16 at 15:45 Pantoprazole 40 mg 40 mg DAILY@06 PO Last administered on 07/22/16 06:06; Admin Dose 40 MG; Start 07/14/16 at 06:00 Lactated Ringer's 1,000 ml @ 50 mls/hr Q20H IV Last administered on 07/22/16 08:14; Admin Dose 50 MLS/HR; Start 07/20/16 at 18:30 Imipenem/ Cilastatin Sodium (Primaxin 500 Mg/ 100 ml (Pmx)) 100 ml @ 100 mls/ hr Q8 IVPB Last administered on 07/22/16 14:03; Admin Dose 100 MLS/HR; Start 07/20/16 at 22:00 Simethicone (Mylicon) 80 mg BID PO Last administered on 07/22/16 08:14; Admin Dose 80 MG; Start 07/21/16 at 23:00 JEB VAZQUEZ MD Jul 22, 2016 18:06
--- NOTE | 2016-07-22 19:44 | PN ---
DATE: 07/22/2016 SUBJECTIVE: States that she feels better. The abdominal pain in the upper quadrants is much better. She has tolerated clear liquids, but he still has some tenderness and some pain over there. No nausea, no vomiting. Had a bowel movement. OBJECTIVE: VITAL SIGNS: Temperature today 98.9, heart rate 81, respirations 18, blood pressure 114/65, saturation 100% on room air. LABORATORY DATA: WBC is down to 14,100 with 61% segmented. Hemoglobin 11.1, hematocrit 35.4. Chemistry: Amylase dropped to 238, is still high; lipase dropped to 280, normal almost. Pigtail drain last 24 hours has drained 20 mL ( also there is 1 recorded 100 mL? I am not sure which is correct). ABDOMEN: Soft. Deep tenderness in the left upper quadrant and right upper quadrant and epigastric area. No peritoneal signs. IMAGING: I reviewed the CT scans yesterday with Dr. Saeed after the sinogram was performed. As I mentioned before, the size of the cavity from sonogram is smaller than the size of the collection which was seen on simple CT scan. Therefore, Dr. Saeed's belief probably there is loculation and he is willing to place another percutaneous catheter to drain the second chamber of the liquid, which is between the liver and the chest wall. So I am going to request that one today and we will see how the thing is going to work. PLAN: Continue the current care. Continue clear liquids. Get a percutaneous drainage per CT-guided assistance tomorrow by Dr. Saeed for the remaining of the collection in the abdominal cavity. Dictated By: BRADLY UGALDE MD PS/NTS Conf#: [id number] DID#: [id number] CC: JEB VAZQUEZ MD;*EndCC* MTDD
[2016-07-22 20:11] LABS: INR 1.2; PROTIME 15.3 Sec (12.2-14.2); PT RATIO 1.2
[2016-07-22 20:13] LABS: PARTIAL THROMBOPLASTIN TIME 40.8 Sec (25.0-35.0)
[2016-07-22] MEDS: LOSARTAN 25 MG TAB PO SCH (21:21)
[2016-07-22 23:11] VITALS: BP 129/75; RESP 16
[2016-07-23] VITALS (24 sets, daily range): BP systolic 104–135; BP diastolic 56–74; PULSE 72–84; RESP 13–69
[2016-07-23] MEDS: HYDROmorphONE 1 MG/ML SYG IV PRN ×6 (01:23→22:02)
[2016-07-23] MEDS: ACCU-CHEK XX SCH (02:00)
[2016-07-23] MEDS: IMIPENEM-CILAST 500MG IV (PMX) 100 ML IVPB SCH (05:41)
[2016-07-23] MEDS: PANTOPRAZOLE (EC) 40 MG TAB PO SCH (06:00)
[2016-07-23 06:30] LABS: ADD SCAN DIFF NO
[2016-07-23 06:43] LABS: BASOPHIL # 0.1 10^3/ul (0.0-0.1); BASOPHILS % 0.4 % (0.0-2.0); EOSINOPHILS # 0.5 10^3/ul (0.0-0.5); EOSINOPHILS % 3.5 % (0.0-7.0); HEMATOCRIT 34.4 % (37.0-47.0); HEMOGLOBIN 10.7 g/dl (12.0-16.0); LYMPHOCYTES # 4.6 10^3/ul (0.8-2.9); LYMPHOCYTES % 35.9 % (15.0-51.0); MEAN CORPUSCULAR HEMOGLOBIN 25.5 pg (29.0-33.0); MEAN CORPUSCULAR HGB CONC 31.1 g/dl (32.0-37.0); MEAN CORPUSCULAR VOLUME 82.1 fl (82.0-101.0); MEAN PLATELET VOLUME 9.4 fl (7.4-10.4); MONOCYTE # 0.8 10^3/ul (0.3-0.9); MONOCYTES % 5.9 % (0.0-11.0); NEUTROPHIL # 6.9 10^3/ul (1.6-7.5); NEUTROPHILS % 53.9 % (39.0-77.0); PLATELET COUNT 342 10^3/UL (140-415); RED BLOOD COUNT 4.19 10^6/ul (4.20-5.40); WHITE BLOOD COUNT 12.8 10^3/ul (4.8-10.8)
[2016-07-23 06:55] LABS: ALBUMIN 3.5 g/dl (3.3-4.9)
[2016-07-23 06:56] LABS: POTASSIUM 3.6 mmol/L (3.5-5.1)
[2016-07-23 06:58] LABS: ALBUMIN/GLOBULIN RATIO 0.94; CREATININE 0.46 mg/dl (0.44-1.00); TOTAL PROTEIN 7.2 g/dl (6.1-8.1)
[2016-07-23 06:59] LABS: CALCIUM 8.5 mg/dl (8.4-10.2)
[2016-07-23 07:00] LABS: BILIRUBIN,INDIRECT 0.3 mg/dl (0-1.1); BILIRUBIN,TOTAL 0.3 mg/dl (0.2-1.3)
[2016-07-23] MEDS: INSULIN ASPART [NOVOLOG] 3 ML PEN SC SCH ×4 (08:00→20:04)
[2016-07-23] MEDS: ALPRAZOLAM 1 MG TAB PO SCH ×2 (08:35→20:06)
[2016-07-23] MEDS: SERTRALINE 100 MG TAB PO SCH (08:35)
[2016-07-23] MEDS: LACTATED RINGER'S 1,000 ML IV SCH (10:00)
--- NOTE | 2016-07-23 13:01 | PN ---
Date/Time of Note Date/Time of Note DATE: 07/23/16 TIME: 12:59 Assessment/Plan VTE Prophylaxis VTE Prophylaxis Intervention: other Lines/Catheters IV Catheter Type (from [facility] Peripheral IV Urinary Cath still in place: No Assessment/Plan Chief Complaint/Hosp Course IMPRESSION: 1. hx cholecystectomy 2.s/ Post-fluid collection around the liver, biloma. s/p ercp and stent The patient has a history of pneumonia, chronic obstructive pulmonary disease, history of obesity. Patient has a history of cholecystectomy, history of appendectomy. 3 leucocytosis 4 s/p ir drainage of abd fluid 5s/p ercp and stent placement 6 pancreatitis better plan antibiotic ck cath drainage per surgery hida neg per dr martin and dr maddox and id labs Problems: Subjective 24 Hr Interval Summary Cardiovascular: no complaints Gastrointestinal: pain (+) Exam/Review of Systems Vital Signs Vitals Vital Signs Date Time Temp Pulse Resp B/P Pulse Ox O2 Delivery O2 Flow Rate FiO2 07/23/16 07:40 98.8 74 18 104/56 96 07/19/16 13:24 Nasal Cannula 4.0 Intake and Output 07/22/16 07/22/16 07/23/16 15:00 23:00 07:00 Intake Total 345 ml 1990 ml 1000 ml Output Total 102 ml Balance 345 ml 1888 ml 1000 ml Exam Neck: supple Respiratory: clear to auscultation Cardiovascular: regular rate and rhythm Gastrointestinal: bowel sounds (positive), soft Musculoskeletal: nl extremities to inspection Extremities: normal pulses Neurological: PIN PULLER II-XII intact, nl mental status Results Result Diagram: 07/23/16 0538 07/23/16 0538 Results 24 hrs Laboratory Tests Test 07/22/16 13:04 07/22/16 16:56 07/22/16 19:43 07/22/16 21:26 Lab Scanned Report REFERENCE LAB Bedside Glucose 96 90 Prothrombin Time 15.3 H Prothrombin Time Ratio 1.2 INR International Normalized Ratio 1.20 Activated Partial Thromboplast Time 40.8 H Test 07/23/16 05:38 07/23/16 08:00 07/23/16 11:40 White Blood Count 12.8 H Red Blood Count 4.19 L Hemoglobin 10.7 L Hematocrit 34.4 L Mean Corpuscular Volume 82.1 Mean Corpuscular Hemoglobin 25.5 L Mean Corpuscular Hemoglobin Concent 31.1 L Red Cell Distribution Width 15.0 H Platelet Count 342 Mean Platelet Volume 9.4 Neutrophils % 53.9 Lymphocytes % 35.9 Monocytes % 5.9 Eosinophils % 3.5 Basophils % 0.4 Nucleated Red Blood Cells % 0.0 Neutrophils # 6.9 Lymphocytes # 4.6 H Monocytes # 0.8 Eosinophils # 0.5 Basophils # 0.1 Nucleated Red Blood Cells # 0.0 Sodium Level 140 Potassium Level 3.6 Chloride Level 102 Carbon Dioxide Level 27 Anion Gap 15 Blood Urea Nitrogen 5 L Creatinine 0.46 Glucose Level 89 Calcium Level 8.5 Total Bilirubin 0.3 Direct Bilirubin 0.00 Indirect Bilirubin 0.3 Aspartate Amino Transf (AST/SGOT) 21 Alanine Aminotransferase (ALT/SGPT) 21 Alkaline Phosphatase 69 Total Protein 7.2 Albumin 3.5 Globulin 3.70 H Albumin/Globulin Ratio 0.94 Bedside Glucose 90 87 Medications Medications Current Medications Ondansetron HCl (Zofran Inj) 4 mg Q6H PRN IV NAUSEA AND/OR VOMITING Last administered on 07/22/16 17:21; Admin Dose 4 MG; Start 07/08/16 at 20:30 Acetaminophen (Tylenol Tab) 650 mg Q6H PRN PO PAIN AND OR ELEVATED TEMP Last administered on 07/21/16 18:28; Admin Dose 650 MG; Start 07/08/16 at 20:30 Diagnostic Test (Pha) (Accu-Chek) 1 ea 02 XX ; Start 07/09/16 at 02:00 Miscellaneous Information 1 ea NOTE XX ; Start 07/08/16 at 20:30 Glucose (Glutose) 15 gm Q15M PRN PO DECREASED GLUCOSE; Start 07/08/16 at 20:30 Glucose (Glutose) 22.5 gm Q15M PRN PO DECREASED GLUCOSE; Start 07/08/16 at 20:30 Dextrose (D50w Syringe) 25 ml Q15M PRN IV DECREASED GLUCOSE; Start 07/08/16 at 20:30 Dextrose (D50w Syringe) 50 ml Q15M PRN IV DECREASED GLUCOSE; Start 07/08/16 at 20:30 Glucagon (Glucagen) 1 mg Q15M PRN IM DECREASED GLUCOSE; Start 07/08/16 at 20:30 Glucose (Glutose) 15 gm Q15M PRN BUCCAL DECREASED GLUCOSE; Start 07/08/16 at 20: 30 Alprazolam (Xanax) 2 mg BID PO Last administered on 07/22/16 21:22; Admin Dose 2 MG; Start 07/08/16 at 21:00 Sertraline HCl (Zoloft) 200 mg DAILY PO Last administered on 07/22/16 08:14; Admin Dose 200 MG; Start 07/09/16 at 09:00 Losartan Potassium (Cozaar) 25 mg DAILY@21 PO Last administered on 07/22/16 21 :21; Admin Dose 25 MG; Start 07/08/16 at 21:00 Zolpidem Tartrate (Ambien) 5 mg HS PRN PO INSOMNIA Last administered on 23:49; Admin Dose 5 MG; Start 07/08/16 at 21:00 Acetaminophen/ Aspirin/Caffeine (Excedrin) 2 tab DAILY PRN PO HEADACHE Last administered on 07/19/16 20:07; Admin Dose 2 TAB; Start 07/09/16 at 19:30 Hydromorphone HCl (Dilaudid) 0.75 mg Q4H PRN IV PAIN Last administered on 10:01; Admin Dose 0.75 MG; Start 07/10/16 at 19:00 Oxycodone/ Acetaminophen (Percocet (5/ 325)) 1 tab Q6H PRN PO PAIN Last administered on 07/21/16 15:42; Admin Dose 1 TAB; Start 07/11/16 at 15:45 Pantoprazole 40 mg 40 mg DAILY@06 PO Last administered on 07/22/16 06:06; Admin Dose 40 MG; Start 07/14/16 at 06:00 Lactated Ringer's 1,000 ml @ 50 mls/hr Q20H IV Last administered on 07/23/16 10:00; Admin Dose 50 MLS/HR; Start 07/20/16 at 18:30 Imipenem/ Cilastatin Sodium (Primaxin 500 Mg/ 100 ml (Pmx)) 100 ml @ 100 mls/ hr Q8 IVPB Last administered on 07/23/16 05:41; Admin Dose 100 MLS/HR; Start 07/20/16 at 22:00 Simethicone (Mylicon) 80 mg BID PO Last administered on 07/22/16 21:21; Admin Dose 80 MG; Start 07/21/16 at 23:00 JEB VAZQUEZ MD Jul 23, 2016 13:01
[2016-07-23] MEDS ORDERED: MIDAZOLAM 1 MG/ML 2 ML INJ ONE ×3 (14:23→16:25)
[2016-07-23] MEDS ORDERED: SOD CHLORIDE 0.9% 500 ML ONE (14:23)
[2016-07-23] MEDS ORDERED: LIDOCAINE 1% (MDV) 20 ML INJ ONE ×2 (14:23→16:07)
[2016-07-23] MEDS ORDERED: FENTAnyl 50 MCG/ML VIAL ONE ×3 (14:23→16:24)
[2016-07-23] MEDS ORDERED: IOHEXOL 300MG/ML 30 ML BTL ONE (14:48)
--- NOTE | 2016-07-23 15:33 | PN ---
DATE: SUBJECTIVE: States that she had a lot of pain, but passed a lot of gas and she was better. She is n.p.o. and awaiting the percutaneous drainage of the collection. OBJECTIVE: VITAL SIGNS: Temperature 98.8, heart rate 74, respiration 18, blood pressure 104/56, saturation 96% on room air. LABORATORIES : Not done today. Chemistry: BUN, creatinine normal, sodium, potassium is normal and no amylase or lipase has been done today. Abdomen is soft. The percutaneous drainage in the past 24 hours 100 mL. ASSESSMENT AND PLAN: The patient has had percutaneous drainage, but has not been able to drain it completely and they want to do another trial to put another catheter in the second collection. This has been reviewed by the neuroradiologist, Dr. Romero, and he is going to change the catheter today, maybe trying to put another catheter and that may drain the whole collection. In any case, otherwise, the patient is doing better, pancreatitis is under control. PLAN: Awaiting new trial by the radiology department to change the present catheter or put a new catheter in new place for drainage of the collection. Dictated By: BRADLY CORTES/ARGELIA Conf#: [id number] DID#: [id number] MTDD
--- NOTE | 2016-07-23 17:27 | CONS ---
Date/Time of Note Date/Time of Note DATE: 07/23/16 TIME: 17:26 Assessment/Plan Assessment/Plan Chief Complaint/Hosp Course SUBJECTIVE: No events, no fevers, no n/v/d Abx: Primaxin PHYSICAL EXAMINATION GENERAL: Morbidly obese, middle-aged, woman who is alert, in no distress. HEENT: Head atraumatic, normocephalic. Sclerae are anicteric. Buccal mucosa dry. NECK: Supple. CHEST: Rise symmetrical. Breath sounds clear. HEART: S1, S2. ABDOMEN: Soft, bowel tones present. EXTREMITIES: Without cyanosis. SKIN: No jaundice, no cyanosis. ASSESSMENT: 1. Pancreatitis, s/p ERCP 2. Status post CT-guided aspiration of intraabdominal fluid on 07/10/2016, fluid cultures negative. 3. Morbid obesity. 4. History of cholecystectomy. 5. Biliary leak, s/p ERCP/stent placement 07/19/16. PLAN: Stable, no fevers, will dc abx, f/u GI/surgical rec-s, poss new drain placement. DW staff Problems: Consultation Date/Type/Reason Admit Date/Time Jul 08, 2016 at 18:34 Type of Consultation: ID Exam/Review of Systems Vital Signs Vitals Vital Signs Date Time Temp Pulse Resp B/P Pulse Ox O2 Delivery O2 Flow Rate FiO2 07/23/16 07:40 98.8 74 18 104/56 96 07/19/16 13:24 Nasal Cannula 4.0 Intake and Output 07/22/16 07/22/16 07/23/16 15:00 23:00 07:00 Intake Total 345 ml 1990 ml 1000 ml Output Total 102 ml Balance 345 ml 1888 ml 1000 ml Results Result Diagram: 07/23/16 0538 07/23/16 0538 Results 24 hrs Laboratory Tests Test 07/22/16 19:43 07/22/16 21:26 07/23/16 05:38 07/23/16 08:00 Prothrombin Time 15.3 H Prothrombin Time Ratio 1.2 INR International Normalized Ratio 1.20 Activated Partial Thromboplast Time 40.8 H Bedside Glucose 90 90 White Blood Count 12.8 H Red Blood Count 4.19 L Hemoglobin 10.7 L Hematocrit 34.4 L Mean Corpuscular Volume 82.1 Mean Corpuscular Hemoglobin 25.5 L Mean Corpuscular Hemoglobin Concent 31.1 L Red Cell Distribution Width 15.0 H Platelet Count 342 Mean Platelet Volume 9.4 Neutrophils % 53.9 Lymphocytes % 35.9 Monocytes % 5.9 Eosinophils % 3.5 Basophils % 0.4 Nucleated Red Blood Cells % 0.0 Neutrophils # 6.9 Lymphocytes # 4.6 H Monocytes # 0.8 Eosinophils # 0.5 Basophils # 0.1 Nucleated Red Blood Cells # 0.0 Sodium Level 140 Potassium Level 3.6 Chloride Level 102 Carbon Dioxide Level 27 Anion Gap 15 Blood Urea Nitrogen 5 L Creatinine 0.46 Glucose Level 89 Calcium Level 8.5 Total Bilirubin 0.3 Direct Bilirubin 0.00 Indirect Bilirubin 0.3 Aspartate Amino Transf (AST/SGOT) 21 Alanine Aminotransferase (ALT/SGPT) 21 Alkaline Phosphatase 69 Total Protein 7.2 Albumin 3.5 Globulin 3.70 H Albumin/Globulin Ratio 0.94 Test 07/23/16 11:40 Bedside Glucose 87 Medications Medications Current Medications Ondansetron HCl (Zofran Inj) 4 mg Q6H PRN IV NAUSEA AND/OR VOMITING Last administered on 07/22/16 17:21; Admin Dose 4 MG; Start 07/08/16 at 20:30 Acetaminophen (Tylenol Tab) 650 mg Q6H PRN PO PAIN AND OR ELEVATED TEMP Last administered on 07/21/16 18:28; Admin Dose 650 MG; Start 07/08/16 at 20:30 Diagnostic Test (Pha) (Accu-Chek) 1 ea 02 XX ; Start 07/09/16 at 02:00 Miscellaneous Information 1 ea NOTE XX ; Start 07/08/16 at 20:30 Glucose (Glutose) 15 gm Q15M PRN PO DECREASED GLUCOSE; Start 07/08/16 at 20:30 Glucose (Glutose) 22.5 gm Q15M PRN PO DECREASED GLUCOSE; Start 07/08/16 at 20:30 Dextrose (D50w Syringe) 25 ml Q15M PRN IV DECREASED GLUCOSE; Start 07/08/16 at 20:30 Dextrose (D50w Syringe) 50 ml Q15M PRN IV DECREASED GLUCOSE; Start 07/08/16 at 20:30 Glucagon (Glucagen) 1 mg Q15M PRN IM DECREASED GLUCOSE; Start 07/08/16 at 20:30 Glucose (Glutose) 15 gm Q15M PRN BUCCAL DECREASED GLUCOSE; Start 07/08/16 at 20: 30 Alprazolam (Xanax) 2 mg BID PO Last administered on 07/22/16 21:22; Admin Dose 2 MG; Start 07/08/16 at 21:00 Sertraline HCl (Zoloft) 200 mg DAILY PO Last administered on 07/22/16 08:14; Admin Dose 200 MG; Start 07/09/16 at 09:00 Losartan Potassium (Cozaar) 25 mg DAILY@21 PO Last administered on 07/22/16 21 :21; Admin Dose 25 MG; Start 07/08/16 at 21:00 Zolpidem Tartrate (Ambien) 5 mg HS PRN PO INSOMNIA Last administered on 23:49; Admin Dose 5 MG; Start 07/08/16 at 21:00 Acetaminophen/ Aspirin/Caffeine (Excedrin) 2 tab DAILY PRN PO HEADACHE Last administered on 07/19/16 20:07; Admin Dose 2 TAB; Start 07/09/16 at 19:30 Hydromorphone HCl (Dilaudid) 0.75 mg Q4H PRN IV PAIN Last administered on 13:45; Admin Dose 0.75 MG; Start 07/10/16 at 19:00 Oxycodone/ Acetaminophen (Percocet (5/ 325)) 1 tab Q6H PRN PO PAIN Last administered on 07/21/16 15:42; Admin Dose 1 TAB; Start 07/11/16 at 15:45 Pantoprazole 40 mg 40 mg DAILY@06 PO Last administered on 07/22/16 06:06; Admin Dose 40 MG; Start 07/14/16 at 06:00 Lactated Ringer's 1,000 ml @ 50 mls/hr Q20H IV Last administered on 07/23/16 10:00; Admin Dose 50 MLS/HR; Start 07/20/16 at 18:30 Imipenem/ Cilastatin Sodium (Primaxin 500 Mg/ 100 ml (Pmx)) 100 ml @ 100 mls/ hr Q8 IVPB Last administered on 07/23/16 05:41; Admin Dose 100 MLS/HR; Start 07/20/16 at 22:00 Simethicone (Mylicon) 80 mg BID PO Last administered on 4/18/17at 21:21; Admin Dose 80 MG; Start 07/21/16 at 23:00 ABNER BALL NP Jul 23, 2016 17:27
--- NOTE | 2016-07-23 18:00 | CONS ---
Date/Time of Note Date/Time of Note DATE: 07/23/16 TIME: 17:58 Assessment/Plan Assessment/Plan Additional Assessment/Plan IMPRESSION: 1. Biloma persistent for almost 2 months postoperatively after removal of the gallbladder. 2. Overweight. 3. Status post cholecystectomy. 4. Status post sphincterotomy and placement of a stent for biliary leak 5. Abdominal pain and nausea due to pancreatitis mild Plan N.p.o., Ringer lactate solution at 50 cc/h amylase and lipase, improved Clear liquid diet, advance to regular low-fat diet. Patient needs to lose weight also Patient has gone for percutaneous drainage of second site in the right upper quadrant. Consultation Date/Type/Reason Admit Date/Time Jul 08, 2016 at 18:34 Type of Consultation: ID [id number] HR Interval Summary Free Text/Dictation Nausea. Abdominal pain reduced Constitutional: improved Exam/Review of Systems Vital Signs Vitals Vital Signs Date Time Temp Pulse Resp B/P Pulse Ox O2 Delivery O2 Flow Rate FiO2 07/23/16 07:40 98.8 74 18 104/56 96 07/19/16 13:24 Nasal Cannula 4.0 Intake and Output 07/22/16 07/22/16 07/23/16 15:00 23:00 07:00 Intake Total 345 ml 1990 ml 1000 ml Output Total 102 ml Balance 345 ml 1888 ml 1000 ml Exam Constitutional: alert, oriented, well developed Psych: nl mood/affect, no complaints Head: atraumatic, normocephalic Eyes: EOMI, PERRL, nl conjunctiva, nl lids, nl sclera ENMT: nl external ears & nose, nl lips & teeth, nl nasal mucosa & septum Neck: non-tender, supple Respiratory: clear to auscultation, normal air movement Cardiovascular: nl pulses, regular rate and rhythm Gastrointestinal: nl liver, spleen, non-tender, soft Musculoskeletal: nl extremities to inspection, nl gait and stance Extremities: normal pulses Neurological: CUSTOMER SERVICER II-XII intact, nl mental status, nl speech, nl strength Skin: nl turgor, No rash or lesions Lymph: nl lymph nodes Results Result Diagram: 07/23/16 0538 07/23/16 0538 Results 24 hrs Laboratory Tests Test 07/22/16 19:43 07/22/16 21:26 07/23/16 05:38 07/23/16 08:00 Prothrombin Time 15.3 H Prothrombin Time Ratio 1.2 INR International Normalized Ratio 1.20 Activated Partial Thromboplast Time 40.8 H Bedside Glucose 90 90 White Blood Count 12.8 H Red Blood Count 4.19 L Hemoglobin 10.7 L Hematocrit 34.4 L Mean Corpuscular Volume 82.1 Mean Corpuscular Hemoglobin 25.5 L Mean Corpuscular Hemoglobin Concent 31.1 L Red Cell Distribution Width 15.0 H Platelet Count 342 Mean Platelet Volume 9.4 Neutrophils % 53.9 Lymphocytes % 35.9 Monocytes % 5.9 Eosinophils % 3.5 Basophils % 0.4 Nucleated Red Blood Cells % 0.0 Neutrophils # 6.9 Lymphocytes # 4.6 H Monocytes # 0.8 Eosinophils # 0.5 Basophils # 0.1 Nucleated Red Blood Cells # 0.0 Sodium Level 140 Potassium Level 3.6 Chloride Level 102 Carbon Dioxide Level 27 Anion Gap 15 Blood Urea Nitrogen 5 L Creatinine 0.46 Glucose Level 89 Calcium Level 8.5 Total Bilirubin 0.3 Direct Bilirubin 0.00 Indirect Bilirubin 0.3 Aspartate Amino Transf (AST/SGOT) 21 Alanine Aminotransferase (ALT/SGPT) 21 Alkaline Phosphatase 69 Total Protein 7.2 Albumin 3.5 Globulin 3.70 H Albumin/Globulin Ratio 0.94 Test 07/23/16 11:40 Bedside Glucose 87 Medications Medications Current Medications Ondansetron HCl (Zofran Inj) 4 mg Q6H PRN IV NAUSEA AND/OR VOMITING Last administered on 07/22/16 17:21; Admin Dose 4 MG; Start 07/08/16 at 20:30 Acetaminophen (Tylenol Tab) 650 mg Q6H PRN PO PAIN AND OR ELEVATED TEMP Last administered on 07/21/16 18:28; Admin Dose 650 MG; Start 07/08/16 at 20:30 Diagnostic Test (Pha) (Accu-Chek) 1 ea 02 XX ; Start 07/09/16 at 02:00 Miscellaneous Information 1 ea NOTE XX ; Start 07/08/16 at 20:30 Glucose (Glutose) 15 gm Q15M PRN PO DECREASED GLUCOSE; Start 07/08/16 at 20:30 Glucose (Glutose) 22.5 gm Q15M PRN PO DECREASED GLUCOSE; Start 07/08/16 at 20:30 Dextrose (D50w Syringe) 25 ml Q15M PRN IV DECREASED GLUCOSE; Start 07/08/16 at 20:30 Dextrose (D50w Syringe) 50 ml Q15M PRN IV DECREASED GLUCOSE; Start 07/08/16 at 20:30 Glucagon (Glucagen) 1 mg Q15M PRN IM DECREASED GLUCOSE; Start 07/08/16 at 20:30 Glucose (Glutose) 15 gm Q15M PRN BUCCAL DECREASED GLUCOSE; Start 07/08/16 at 20: 30 Alprazolam (Xanax) 2 mg BID PO Last administered on 07/22/16 21:22; Admin Dose 2 MG; Start 07/08/16 at 21:00 Sertraline HCl (Zoloft) 200 mg DAILY PO Last administered on 07/22/16 08:14; Admin Dose 200 MG; Start 07/09/16 at 09:00 Losartan Potassium (Cozaar) 25 mg DAILY@21 PO Last administered on 07/22/16 21 :21; Admin Dose 25 MG; Start 07/08/16 at 21:00 Zolpidem Tartrate (Ambien) 5 mg HS PRN PO INSOMNIA Last administered on 23:49; Admin Dose 5 MG; Start 07/08/16 at 21:00 Acetaminophen/ Aspirin/Caffeine (Excedrin) 2 tab DAILY PRN PO HEADACHE Last administered on 07/19/16 20:07; Admin Dose 2 TAB; Start 07/09/16 at 19:30 Hydromorphone HCl (Dilaudid) 0.75 mg Q4H PRN IV PAIN Last administered on 13:45; Admin Dose 0.75 MG; Start 07/10/16 at 19:00 Oxycodone/ Acetaminophen (Percocet (5/ 325)) 1 tab Q6H PRN PO PAIN Last administered on 07/21/16 15:42; Admin Dose 1 TAB; Start 07/11/16 at 15:45 Pantoprazole 40 mg 40 mg DAILY@06 PO Last administered on 07/22/16 06:06; Admin Dose 40 MG; Start 07/14/16 at 06:00 Lactated Ringer's (Lr) 1,000 ml @ 50 mls/hr Q20H IV Last administered on 10:00; Admin Dose 50 MLS/HR; Start 07/20/16 at 18:30 Simethicone (Mylicon) 80 mg BID PO Last administered on 07/22/16t 21:21; Admin Dose 80 MG; Start 07/21/16 at 23:00 JESUS AGUILAR MD Jul 23, 2016 17:59
[2016-07-23] MEDS ORDERED: HYDROmorphONE 1 MG/ML SYG IV STA (18:48)
[2016-07-23] MEDS: ONDANSETRON 4 MG INJ IV PRN (19:18)
[2016-07-23] MEDS: LOSARTAN 25 MG TAB PO SCH (20:06)
[2016-07-23] MEDS: ZOLPIDEM 5 MG TAB PO PRN (22:11)
[2016-07-24] MEDS: ACCU-CHEK XX SCH (01:52)
[2016-07-24] MEDS: HYDROmorphONE 1 MG/ML SYG IV PRN ×6 (01:53→22:04)
[2016-07-24] MEDS: PANTOPRAZOLE (EC) 40 MG TAB PO SCH (05:40)
[2016-07-24 05:58] LABS: ADD SCAN DIFF NO
[2016-07-24 06:12] LABS: ALBUMIN 3.4 g/dl (3.3-4.9); ALBUMIN/GLOBULIN RATIO 0.94; BILIRUBIN,INDIRECT 0.1 mg/dl (0-1.1); BILIRUBIN,TOTAL 0.1 mg/dl (0.2-1.3); CALCIUM 8.4 mg/dl (8.4-10.2); CREATININE 0.46 mg/dl (0.44-1.00); POTASSIUM 3.7 mmol/L (3.5-5.1)
[2016-07-24 06:16] LABS: AMYLASE 41 U/L (11-123)
[2016-07-24 06:21] LABS: BASOPHIL # 0.1 10^3/ul (0.0-0.1); BASOPHILS % 0.4 % (0.0-2.0); EOSINOPHILS # 0.6 10^3/ul (0.0-0.5); EOSINOPHILS % 4.6 % (0.0-7.0); HEMATOCRIT 33.9 % (37.0-47.0); HEMOGLOBIN 10.7 g/dl (12.0-16.0); LYMPHOCYTES # 3.8 10^3/ul (0.8-2.9); LYMPHOCYTES % 31.8 % (15.0-51.0); MEAN CORPUSCULAR HGB CONC 31.6 g/dl (32.0-37.0); MEAN CORPUSCULAR VOLUME 82.5 fl (82.0-101.0); MEAN PLATELET VOLUME 9.3 fl (7.4-10.4); MONOCYTE # 0.8 10^3/ul (0.3-0.9); MONOCYTES % 6.8 % (0.0-11.0); NEUTROPHIL # 6.7 10^3/ul (1.6-7.5); PLATELET COUNT 345 10^3/UL (140-415); RED BLOOD COUNT 4.11 10^6/ul (4.20-5.40); RED CELL DISTRIBUTION WIDTH 14.8 % (11.5-14.5); WHITE BLOOD COUNT 11.9 10^3/ul (4.8-10.8)
[2016-07-24 07:40] VITALS: BP 115/57; RESP 20
[2016-07-24] MEDS: INSULIN ASPART [NOVOLOG] 3 ML PEN SC SCH ×4 (08:00→20:02)
[2016-07-24] MEDS: ALPRAZOLAM 1 MG TAB PO SCH ×2 (08:32→20:00)
[2016-07-24] MEDS: SERTRALINE 100 MG TAB PO SCH (08:32)
--- NOTE | 2016-07-24 09:09 | RADRPT ---
PROCEDURE: CT-guided drainage of a perihepatic collection CLINICAL INDICATION: Perihepatic collection TECHNIQUE: Informed consent was obtained from the patient following careful explanation of the risks and benefi ts of the procedure. Versed and Fentanyl were administered by the nurse who monitored the patient. The patient was placed prone on the CT table and multiple axial images were obtained through the pel vis. The existing 8.5 Andorran drain was prepped and draped in the usual sterile fashion. 1% lidocain e was utilized for local anesthesia. The external portion of the catheter was cut and under CT benito nce, a White wire was advanced through the catheter and coiled within the collection. The catheter was then removed over the wire and serial dilatation was performed resulting in placement of a 12-F rench drain within the collection. 20 cc of bilious fluid was removed. The catheter was connected to a drainage bag and sutured to the patient's skin. A sterile dressing was applied. The patient tolerated the procedure well. COMPARISON: CT abdomen/pelvis from 07/18/2016 FINDINGS: Perihepatic fluid collection. IMPRESSION: Exchange and upsizing of an 8.5 Andorran drainage catheter within a perihepatic collection to a 12-Chris nch drainage catheter with removal of 20 cc of bilious fluid. RPTAT: AA Physician Colby Date Time Electronically viewed and signed by Physician Colby on 07/24/2016 09:08 /
--- NOTE | 2016-07-24 09:10 | RADRPT ---
PROCEDURE: CT-guided drainage of a perihepatic collection CLINICAL INDICATION: Large perihepatic collection TECHNIQUE: Informed consent was obtained from the patient following careful explanation of the risks and benefi ts of the procedure. Versed and Fentanyl were administered by the nurse who monitored the patient. The patient was placed prone on the CT table and multiple axial images were obtained through the pel vis. A site in the patient's skin was selected and marked. The area was prepped and draped in the u sual sterile fashion. 1% lidocaine with lidocaine was utilized for local anesthesia. Under direct CT guidance, a 21 Ga needle was advanced into the fluid collection and a guidewire was advanced as confirmed by CT guidance. The needle was exchanged over the wire for a 10 Nepali draina ge tube which was placed within the fluid collection. Approximately 30 cc's of daily fluid were aspirated with a specimen sent for culture and sensitivity . The catheter was connected to a drainage bag and sutured to the patient's skin. A sterile dressing was applied. The patient tolerated the procedure well. COMPARISON: CT abdomen/pelvis from 07/18/2016 FINDINGS: Perihepatic fluid collection IMPRESSION: CT guided placement of a 10-Nepali drainage catheter within it perihepatic collection with removal o f 30 cc of bilious fluid. RPTAT: AA Physician Colby Date Time Electronically viewed and signed by Physician Colby on 07/24/2016 09:09 /
[2016-07-24] MEDS: OXYCODONE/ACETAMINOPHEN (5/325) TAB PO PRN ×2 (10:34→20:17)
--- NOTE | 2016-07-24 15:16 | CONS ---
Date/Time of Note Date/Time of Note DATE: 07/24/16 TIME: 15:15 Assessment/Plan Assessment/Plan Chief Complaint/Hosp Course SUBJECTIVE: No events, no fevers, looks comfortable PHYSICAL EXAMINATION GENERAL: Morbidly obese, middle-aged, woman who is alert, in no distress. HEENT: Head atraumatic, normocephalic. Sclerae are anicteric. Buccal mucosa dry. NECK: Supple. CHEST: Rise symmetrical. Breath sounds clear. HEART: S1, S2. ABDOMEN: Soft, bowel tones present. EXTREMITIES: Without cyanosis. SKIN: No jaundice, no cyanosis. ASSESSMENT: 1. Pancreatitis, s/p ERCP 2. Status post CT-guided aspiration of intraabdominal fluid on 07/10/2016, s/p catheter exchange 07/23/16==>fluid cultures negative. 3. Morbid obesity. 4. History of cholecystectomy. 5. Biliary leak, s/p ERCP/stent placement 07/19/16. PLAN: Remains stable, off abx, no fevers, f/u GI/surgical rec-s [facility] staff Problems: Consultation Date/Type/Reason Admit Date/Time Jul 08, 2016 at 18:34 Type of Consultation: ID Exam/Review of Systems Vital Signs Vitals Vital Signs Date Time Temp Pulse Resp B/P Pulse Ox O2 Delivery O2 Flow Rate FiO2 07/24/16 07:40 97.8 64 20 115/57 96 07/23/16 20:00 Nasal Cannula 2.0 Intake and Output 07/23/16 07/23/16 07/24/16 15:00 23:00 07:00 Intake Total 500 ml 640 ml Output Total 105 ml 100 ml Balance 395 ml 540 ml Results Result Diagram: 07/24/16 0524 07/24/16 0524 Results 24 hrs Laboratory Tests Test 07/23/16 19:21 07/23/16 19:51 07/24/16 01:51 07/24/16 05:24 Bedside Glucose 78 89 82 White Blood Count 11.9 H Red Blood Count 4.11 L Hemoglobin 10.7 L Hematocrit 33.9 L Mean Corpuscular Volume 82.5 Mean Corpuscular Hemoglobin 26.0 L Mean Corpuscular Hemoglobin Concent 31.6 L Red Cell Distribution Width 14.8 H Platelet Count 345 Mean Platelet Volume 9.3 Neutrophils % 56.0 Lymphocytes % 31.8 Monocytes % 6.8 Eosinophils % 4.6 Basophils % 0.4 Nucleated Red Blood Cells % 0.0 Neutrophils # 6.7 Lymphocytes # 3.8 H Monocytes # 0.8 Eosinophils # 0.6 H Basophils # 0.1 Nucleated Red Blood Cells # 0.0 Sodium Level 138 Potassium Level 3.7 Chloride Level 104 Carbon Dioxide Level 29 Anion Gap 9 # Blood Urea Nitrogen 6 L Creatinine 0.46 Glucose Level 104 Calcium Level 8.4 Total Bilirubin 0.1 L Direct Bilirubin 0.00 Indirect Bilirubin 0.1 Aspartate Amino Transf (AST/SGOT) 20 Alanine Aminotransferase (ALT/SGPT) 27 Alkaline Phosphatase 70 Total Protein 7.0 Albumin 3.4 Globulin 3.60 H Albumin/Globulin Ratio 0.94 Amylase Level 41 Lipase 93 Test 07/24/16 07:51 07/24/16 11:29 Bedside Glucose 90 92 Medications Medications Current Medications Ondansetron HCl (Zofran Inj) 4 mg Q6H PRN IV NAUSEA AND/OR VOMITING Last administered on 07/23/16 19:18; Admin Dose 4 MG; Start 07/08/16 at 20:30 Acetaminophen (Tylenol Tab) 650 mg Q6H PRN PO PAIN AND OR ELEVATED TEMP Last administered on 07/21/16 18:28; Admin Dose 650 MG; Start 07/08/16 at 20:30 Diagnostic Test (Pha) (Accu-Chek) 1 ea 02 XX ; Start 07/09/16 at 02:00 Miscellaneous Information 1 ea NOTE XX ; Start 07/08/16 at 20:30 Glucose (Glutose) 15 gm Q15M PRN PO DECREASED GLUCOSE; Start 07/08/16 at 20:30 Glucose (Glutose) 22.5 gm Q15M PRN PO DECREASED GLUCOSE; Start 07/08/16 at 20:30 Dextrose (D50w Syringe) 25 ml Q15M PRN IV DECREASED GLUCOSE; Start 07/08/16 at 20:30 Dextrose (D50w Syringe) 50 ml Q15M PRN IV DECREASED GLUCOSE; Start 07/08/16 at 20:30 Glucagon (Glucagen) 1 mg Q15M PRN IM DECREASED GLUCOSE; Start 07/08/16 at 20:30 Glucose (Glutose) 15 gm Q15M PRN BUCCAL DECREASED GLUCOSE; Start 07/08/16 at 20: 30 Alprazolam (Xanax) 2 mg BID PO Last administered on 07/24/16 08:32; Admin Dose 2 MG; Start 07/08/16 at 21:00 Sertraline HCl (Zoloft) 200 mg DAILY PO Last administered on 07/24/16 08:32; Admin Dose 200 MG; Start 07/09/16 at 09:00 Losartan Potassium (Cozaar) 25 mg DAILY@21 PO Last administered on 07/23/16 20 :06; Admin Dose 25 MG; Start 07/08/16 at 21:00 Zolpidem Tartrate (Ambien) 5 mg HS PRN PO INSOMNIA Last administered on 22:11; Admin Dose 5 MG; Start 07/08/16 at 21:00 Acetaminophen/ Aspirin/Caffeine (Excedrin) 2 tab DAILY PRN PO HEADACHE Last administered on 07/19/16 20:07; Admin Dose 2 TAB; Start 07/09/16 at 19:30 Hydromorphone HCl (Dilaudid) 0.75 mg Q4H PRN IV PAIN Last administered on 13:55; Admin Dose 0.75 MG; Start 07/10/16 at 19:00 Oxycodone/ Acetaminophen (Percocet (5/ 325)) 1 tab Q6H PRN PO PAIN Last administered on 07/24/16 10:34; Admin Dose 1 TAB; Start 07/11/16 at 15:45 Pantoprazole (Protonix Tab) 40 mg DAILY@06 PO Last administered on 07/24/16 05 :40; Admin Dose 40 MG; Start 07/14/16 at 06:00 Simethicone (Mylicon) 80 mg BID PO Last administered on 07/24/16 08:32; Admin Dose 80 MG; Start 07/21/16 at 23:00 ABNER BALL NP Jul 24, 2016 15:16
--- NOTE | 2016-07-24 15:46 | PN ---
DATE: SUBJECTIVE: Feels better, but still has a little bit of pain when she moves around. OBJECTIVE: VITAL SIGNS: Temperature 97.8, pulse 64, respirations 20, blood pressure 115/67, saturation 96% on room air. LABORATORY DATA: WBC today 11,900 with 56% segmented. Chemistry within normal limits. ABDOMEN: Soft. Two pigtail drains are in place that they put yesterday by the radiologist. ASSESSMENT AND PLAN: The patient has had loculated fluid collection in the right hepatic lobe. Previously she had 1 drain put about 10 days ago. Yesterday the radiologist changed that drain to a #12 Tamazight and put another # 10. Another loculation to drain caused more fluid. The patient tolerated quite well and today since morning both drains have drained 80 mL of brownish bilious-looking fluid. PLAN: Advance the diet to soft, low fat, low cholesterol as tolerated,. Dictated By: BRADLY UGALDE MD PS/ARGELIA Conf#: [id number] DID#: [id number] MTDD
[2016-07-24] MEDS: ONDANSETRON 4 MG INJ IV PRN (17:47)
[2016-07-24] MEDS ORDERED: HYDROmorphONE 1 MG/ML SYG IV PRN (19:00)
--- NOTE | 2016-07-24 19:08 | CONS ---
Date/Time of Note Date/Time of Note DATE: 07/24/16 TIME: 19:07 Assessment/Plan Assessment/Plan Additional Assessment/Plan IMPRESSION: 1. Biloma persistent for almost 2 months postoperatively after removal of the gallbladder. 2. Overweight. 3. Status post cholecystectomy. 4. Status post sphincterotomy and placement of a stent for biliary leak 5. Abdominal pain and nausea due to pancreatitis mild Plan N.p.o., Ringer lactate solution at 50 cc/h amylase and lipase, improved Clear liquid diet, advance to regular low-fat diet. Patient needs to lose weight also Patient has 2 drains in the right upper quadrant. Both the drains are draining biliary material. This was a old collection of bile. Patient feels much comfortable and less symptomatic after the placement of biliary stent Consultation Date/Type/Reason Admit Date/Time Jul 08, 2016 at 18:34 Type of Consultation: ID 24 HR Interval Summary Constitutional: improved Exam/Review of Systems Vital Signs Vitals Vital Signs Date Time Temp Pulse Resp B/P Pulse Ox O2 Delivery O2 Flow Rate FiO2 07/24/16 07:40 97.8 64 20 115/57 96 07/23/16 20:00 Nasal Cannula 2.0 Intake and Output 07/23/16 07/23/16 07/24/16 15:00 23:00 07:00 Intake Total 500 ml 640 ml Output Total 105 ml 100 ml Balance 395 ml 540 ml Exam Constitutional: alert, oriented, well developed Psych: nl mood/affect, no complaints Head: atraumatic, normocephalic Eyes: EOMI, PERRL, nl conjunctiva, nl lids, nl sclera ENMT: nl external ears & nose, nl lips & teeth, nl nasal mucosa & septum Neck: non-tender, supple Respiratory: clear to auscultation, normal air movement Cardiovascular: nl pulses, regular rate and rhythm Gastrointestinal: nl liver, spleen, non-tender, soft Musculoskeletal: nl extremities to inspection, nl gait and stance Extremities: normal pulses Neurological: MARKET RESEARCH ANALYST II-XII intact, nl mental status, nl speech, nl strength Skin: nl turgor, No rash or lesions Lymph: nl lymph nodes Results Result Diagram: 07/24/16 0524 07/24/16 0524 Results 24 hrs Laboratory Tests Test 07/23/16 19:21 07/23/16 19:51 07/24/16 01:51 07/24/16 05:24 Bedside Glucose 78 89 82 White Blood Count 11.9 H Red Blood Count 4.11 L Hemoglobin 10.7 L Hematocrit 33.9 L Mean Corpuscular Volume 82.5 Mean Corpuscular Hemoglobin 26.0 L Mean Corpuscular Hemoglobin Concent 31.6 L Red Cell Distribution Width 14.8 H Platelet Count 345 Mean Platelet Volume 9.3 Neutrophils % 56.0 Lymphocytes % 31.8 Monocytes % 6.8 Eosinophils % 4.6 Basophils % 0.4 Nucleated Red Blood Cells % 0.0 Neutrophils # 6.7 Lymphocytes # 3.8 H Monocytes # 0.8 Eosinophils # 0.6 H Basophils # 0.1 Nucleated Red Blood Cells # 0.0 Sodium Level 138 Potassium Level 3.7 Chloride Level 104 Carbon Dioxide Level 29 Anion Gap 9 # Blood Urea Nitrogen 6 L Creatinine 0.46 Glucose Level 104 Calcium Level 8.4 Total Bilirubin 0.1 L Direct Bilirubin 0.00 Indirect Bilirubin 0.1 Aspartate Amino Transf (AST/SGOT) 20 Alanine Aminotransferase (ALT/SGPT) 27 Alkaline Phosphatase 70 Total Protein 7.0 Albumin 3.4 Globulin 3.60 H Albumin/Globulin Ratio 0.94 Amylase Level 41 Lipase 93 Test 07/24/16 07:51 07/24/16 11:29 07/24/16 17:06 Bedside Glucose 90 92 101 Medications Medications Current Medications Ondansetron HCl (Zofran Inj) 4 mg Q6H PRN IV NAUSEA AND/OR VOMITING Last administered on 07/24/16 17:47; Admin Dose 4 MG; Start 07/08/16 at 20:30 Acetaminophen (Tylenol Tab) 650 mg Q6H PRN PO PAIN AND OR ELEVATED TEMP Last administered on 07/21/16 18:28; Admin Dose 650 MG; Start 07/08/16 at 20:30 Diagnostic Test (Pha) (Accu-Chek) 1 ea 02 XX ; Start 07/09/16 at 02:00 Miscellaneous Information 1 ea NOTE XX ; Start 07/08/16 at 20:30 Glucose (Glutose) 15 gm Q15M PRN PO DECREASED GLUCOSE; Start 07/08/16 at 20:30 Glucose (Glutose) 22.5 gm Q15M PRN PO DECREASED GLUCOSE; Start 07/08/16 at 20:30 Dextrose (D50w Syringe) 25 ml Q15M PRN IV DECREASED GLUCOSE; Start 07/08/16 at 20:30 Dextrose (D50w Syringe) 50 ml Q15M PRN IV DECREASED GLUCOSE; Start 07/08/16 at 20:30 Glucagon (Glucagen) 1 mg Q15M PRN IM DECREASED GLUCOSE; Start 07/08/16 at 20:30 Glucose (Glutose) 15 gm Q15M PRN BUCCAL DECREASED GLUCOSE; Start 07/08/16 at 20: 30 Alprazolam (Xanax) 2 mg BID PO Last administered on 07/24/16 08:32; Admin Dose 2 MG; Start 07/08/16 at 21:00 Sertraline HCl (Zoloft) 200 mg DAILY PO Last administered on 07/24/16 08:32; Admin Dose 200 MG; Start 07/09/16 at 09:00 Losartan Potassium (Cozaar) 25 mg DAILY@21 PO Last administered on 07/23/16 20 :06; Admin Dose 25 MG; Start 07/08/16 at 21:00 Zolpidem Tartrate (Ambien) 5 mg HS PRN PO INSOMNIA Last administered on 22:11; Admin Dose 5 MG; Start 07/08/16 at 21:00 Acetaminophen/ Aspirin/Caffeine (Excedrin) 2 tab DAILY PRN PO HEADACHE Last administered on 07/19/16 20:07; Admin Dose 2 TAB; Start 07/09/16 at 19:30 Oxycodone/ Acetaminophen (Percocet (5/ 325)) 1 tab Q6H PRN PO PAIN Last administered on 07/24/16 10:34; Admin Dose 1 TAB; Start 07/11/16 at 15:45 Pantoprazole (Protonix Tab) 40 mg DAILY@06 PO Last administered on 07/24/16 05 :40; Admin Dose 40 MG; Start 07/14/16 at 06:00 Simethicone (Mylicon) 80 mg BID PO Last administered on 07/24/16 08:32; Admin Dose 80 MG; Start 07/21/16 at 23:00 Hydromorphone HCl (Dilaudid) 0.5 mg Q4H PRN IV PAIN Last administered on 17:47; Admin Dose 0.5 MG; Start 07/24/16 at 17:00 JESUS AGUILAR MD Jul 24, 2016 19:08
--- NOTE | 2016-07-24 19:41 | PN ---
Date/Time of Note Date/Time of Note DATE: 07/24/16 TIME: 19:40 Assessment/Plan VTE Prophylaxis VTE Prophylaxis Intervention: other Lines/Catheters IV Catheter Type (from Nrs): Saline Lock Central line still needed: Yes Urinary Cath still in place: No Reason Cath still needed: other (indicate) Assessment/Plan Chief Complaint/Hosp Course IMPRESSION: 1. hx cholecystectomy 2.s/ Post-fluid collection around the liver, biloma. s/p ercp and stent The patient has a history of pneumonia, chronic obstructive pulmonary disease, history of obesity. Patient has a history of cholecystectomy, history of appendectomy. 3 leucocytosis 4 s/p ir drainage of abd fluid 5s/p ercp and stent placement 6 pancreatitis better plan antibiotic ck cath drainage per surgery hida neg per dr martin and dr maddox and id labs per ir Problems: Subjective 24 Hr Interval Summary ENT: no complaints Respiratory: no complaints Cardiovascular: no complaints Exam/Review of Systems Vital Signs Vitals Vital Signs Date Time Temp Pulse Resp B/P Pulse Ox O2 Delivery O2 Flow Rate FiO2 07/24/16 07:40 97.8 64 20 115/57 96 07/23/16 20:00 Nasal Cannula 2.0 Intake and Output 07/23/16 07/23/16 07/24/16 15:00 23:00 07:00 Intake Total 500 ml 640 ml Output Total 105 ml 100 ml Balance 395 ml 540 ml Exam Constitutional: other (s/p exchange of drainage of cath) Respiratory: clear to auscultation Cardiovascular: regular rate and rhythm Gastrointestinal: soft Musculoskeletal: nl extremities to inspection Results Result Diagram: 07/24/1624 07/24/16 0524 Results 24 hrs Laboratory Tests Test 07/23/16 19:51 07/24/16 01:51 07/24/16 05:24 07/24/16 07:51 Bedside Glucose 89 82 90 White Blood Count 11.9 H Red Blood Count 4.11 L Hemoglobin 10.7 L Hematocrit 33.9 L Mean Corpuscular Volume 82.5 Mean Corpuscular Hemoglobin 26.0 L Mean Corpuscular Hemoglobin Concent 31.6 L Red Cell Distribution Width 14.8 H Platelet Count 345 Mean Platelet Volume 9.3 Neutrophils % 56.0 Lymphocytes % 31.8 Monocytes % 6.8 Eosinophils % 4.6 Basophils % 0.4 Nucleated Red Blood Cells % 0.0 Neutrophils # 6.7 Lymphocytes # 3.8 H Monocytes # 0.8 Eosinophils # 0.6 H Basophils # 0.1 Nucleated Red Blood Cells # 0.0 Sodium Level 138 Potassium Level 3.7 Chloride Level 104 Carbon Dioxide Level 29 Anion Gap 9 # Blood Urea Nitrogen 6 L Creatinine 0.46 Glucose Level 104 Calcium Level 8.4 Total Bilirubin 0.1 L Direct Bilirubin 0.00 Indirect Bilirubin 0.1 Aspartate Amino Transf (AST/SGOT) 20 Alanine Aminotransferase (ALT/SGPT) 27 Alkaline Phosphatase 70 Total Protein 7.0 Albumin 3.4 Globulin 3.60 H Albumin/Globulin Ratio 0.94 Amylase Level 41 Lipase 93 Test 07/24/16 11:29 07/24/16 17:06 Bedside Glucose 92 101 Medications Medications Current Medications Ondansetron HCl (Zofran Inj) 4 mg Q6H PRN IV NAUSEA AND/OR VOMITING Last administered on 07/24/16 17:47; Admin Dose 4 MG; Start 07/08/16 at 20:30 Acetaminophen (Tylenol Tab) 650 mg Q6H PRN PO PAIN AND OR ELEVATED TEMP Last administered on 07/21/16 18:28; Admin Dose 650 MG; Start 07/08/16 at 20:30 Diagnostic Test (Pha) (Accu-Chek) 1 ea 02 XX ; Start 07/09/16 at 02:00 Miscellaneous Information 1 ea NOTE XX ; Start 07/08/16 at 20:30 Glucose (Glutose) 15 gm Q15M PRN PO DECREASED GLUCOSE; Start 07/08/16 at 20:30 Glucose (Glutose) 22.5 gm Q15M PRN PO DECREASED GLUCOSE; Start 07/08/16 at 20:30 Dextrose (D50w Syringe) 25 ml Q15M PRN IV DECREASED GLUCOSE; Start 07/08/16 at 20:30 Dextrose (D50w Syringe) 50 ml Q15M PRN IV DECREASED GLUCOSE; Start 07/08/16 at 20:30 Glucagon (Glucagen) 1 mg Q15M PRN IM DECREASED GLUCOSE; Start 07/08/16 at 20:30 Glucose (Glutose) 15 gm Q15M PRN BUCCAL DECREASED GLUCOSE; Start 07/08/16 at 20: 30 Alprazolam (Xanax) 2 mg BID PO Last administered on 07/24/16 08:32; Admin Dose 2 MG; Start 07/08/16 at 21:00 Sertraline HCl (Zoloft) 200 mg DAILY PO Last administered on 07/24/16 08:32; Admin Dose 200 MG; Start 07/09/16 at 09:00 Losartan Potassium (Cozaar) 25 mg DAILY@21 PO Last administered on 07/23/16 20 :06; Admin Dose 25 MG; Start 07/08/16 at 21:00 Zolpidem Tartrate (Ambien) 5 mg HS PRN PO INSOMNIA Last administered on 22:11; Admin Dose 5 MG; Start 07/08/16 at 21:00 Acetaminophen/ Aspirin/Caffeine (Excedrin) 2 tab DAILY PRN PO HEADACHE Last administered on 07/19/16 20:07; Admin Dose 2 TAB; Start 07/09/16 at 19:30 Oxycodone/ Acetaminophen (Percocet (5/ 325)) 1 tab Q6H PRN PO PAIN Last administered on 07/24/16 10:34; Admin Dose 1 TAB; Start 07/11/16 at 15:45 Pantoprazole (Protonix Tab) 40 mg DAILY@06 PO Last administered on 07/24/16 05 :40; Admin Dose 40 MG; Start 07/14/16 at 06:00 Simethicone (Mylicon) 80 mg BID PO Last administered on 07/24/16 08:32; Admin Dose 80 MG; Start 07/21/16 at 23:00 Hydromorphone HCl (Dilaudid) 0.5 mg Q4H PRN IV PAIN Last administered on 17:47; Admin Dose 0.5 MG; Start 07/24/16 at 17:00 JEB VAZQUEZ MD Jul 24, 2016 19:41
[2016-07-24 19:48] VITALS: BP 122/57; RESP 14
[2016-07-24] MEDS: LOSARTAN 25 MG TAB PO SCH (20:01)
[2016-07-25] MEDS: ZOLPIDEM 5 MG TAB PO PRN (00:15)
[2016-07-25] MEDS: HYDROmorphONE 1 MG/ML SYG IV PRN ×5 (01:55→21:41)
[2016-07-25] MEDS: ACCU-CHEK XX SCH (02:00)
[2016-07-25] MEDS: ONDANSETRON 4 MG INJ IV PRN ×2 (02:03→09:50)
[2016-07-25] MEDS: OXYCODONE/ACETAMINOPHEN (5/325) TAB PO PRN ×3 (03:31→22:49)
[2016-07-25] MEDS: PANTOPRAZOLE (EC) 40 MG TAB PO SCH (05:19)
[2016-07-25 05:24] LABS: ADD SCAN DIFF NO
[2016-07-25 05:31] LABS: BASOPHILS % 0.4 % (0.0-2.0); EOSINOPHILS # 0.5 10^3/ul (0.0-0.5); EOSINOPHILS % 5.1 % (0.0-7.0); HEMATOCRIT 34.3 % (37.0-47.0); HEMOGLOBIN 10.8 g/dl (12.0-16.0); LYMPHOCYTES # 3.7 10^3/ul (0.8-2.9); LYMPHOCYTES % 36.1 % (15.0-51.0); MEAN CORPUSCULAR HEMOGLOBIN 25.7 pg (29.0-33.0); MEAN CORPUSCULAR HGB CONC 31.5 g/dl (32.0-37.0); MEAN CORPUSCULAR VOLUME 81.5 fl (82.0-101.0); MEAN PLATELET VOLUME 9.3 fl (7.4-10.4); MONOCYTE # 0.7 10^3/ul (0.3-0.9); MONOCYTES % 7.2 % (0.0-11.0); NEUTROPHIL # 5.3 10^3/ul (1.6-7.5); NEUTROPHILS % 50.8 % (39.0-77.0); PLATELET COUNT 401 10^3/UL (140-415); RED BLOOD COUNT 4.21 10^6/ul (4.20-5.40); RED CELL DISTRIBUTION WIDTH 14.7 % (11.5-14.5); WHITE BLOOD COUNT 10.3 10^3/ul (4.8-10.8)
[2016-07-25 06:07] LABS: ALBUMIN 3.4 g/dl (3.3-4.9); POTASSIUM 3.2 mmol/L (3.5-5.1)
[2016-07-25 06:09] LABS: BILIRUBIN,INDIRECT 0.2 mg/dl (0-1.1); BILIRUBIN,TOTAL 0.2 mg/dl (0.2-1.3); CREATININE 0.49 mg/dl (0.44-1.00)
[2016-07-25 06:10] LABS: ALBUMIN/GLOBULIN RATIO 0.94; CALCIUM 8.5 mg/dl (8.4-10.2)
[2016-07-25 07:35] VITALS: BP 100/61; RESP 20
[2016-07-25] MEDS: INSULIN ASPART [NOVOLOG] 3 ML PEN SC SCH ×4 (07:58→21:00)
[2016-07-25] MEDS: ALPRAZOLAM 1 MG TAB PO SCH ×2 (08:45→20:42)
[2016-07-25] MEDS: SERTRALINE 100 MG TAB PO SCH (08:45)
--- NOTE | 2016-07-25 11:06 | PN ---
DATE: SUBJECTIVE: Feels better, has tolerated a soft diet, low fat, low cholesterol. No nausea, no vomit ing. Has had bowel movement. OBJECTIVE: VITAL SIGNS: 98.6, 76, 20, 100/61 blood pressure, 96% on room air saturation. LABORATORY DATA: BUN, creatinine normal. WBC 10,300 with 50% neutrophils. The patient has 2 pigtai l drains, one is [place] #10, the other is Argentine #12. Both together in 24 hours they have drained 7 0 mL of brownish bilious-looking fluid. ABDOMEN: Soft. EXTREMITIES: Lower extremity have no calf tenderness. ASSESSMENT AND PLAN: The patient has a loculated fluid collection within the right hepatic lobe and chest wall. Continuation of the previous perihepatic fluid collection after cholecystectomy 2 jensen hs ago. The drains are draining brownish clear fluid which was positive for ____ status post ERCP s phincterotomy with placement of a stent in the common bile duct. PLAN: Continue observation and there are 2 alternatives that we can do. Either keep the patient un til the drainage is less than 20 mL and then remove the pigtail drains in the hospital and send the patient home or if it is possible and safe send the patient home with home health care to go home an d check the pigtail drains every day and then I doubt if they can remove it, and then for removal of these should be arrangement made to come to the hospital and remove those pigtail drains. I will d iscuss with Dr. Blair and I will discuss with Dr. Lange about this. Dictated By: BRADLY CORTES/ARGELIA Conf#: [id number] DID#: [id number]
[2016-07-25] MEDS ORDERED: POTASSIUM CHLORIDE (SR) 20 MEQ TAB PO STA (11:39)
--- NOTE | 2016-07-25 12:22 | PN ---
Date/Time of Note Date/Time of Note DATE: 07/25/16 TIME: 12:20 Assessment/Plan VTE Prophylaxis VTE Prophylaxis Intervention: ambulation Lines/Catheters [facility]from [facility] Saline Lock Urinary Cath still in place: No Assessment/Plan Chief Complaint/Hosp Course 1. hx cholecystectomy 2.s/ Post-fluid collection around the liver, biloma. 3 leucocytosis 4 s/p ir drainage of abd fluid 5. s/p ercp and stent placement 6 pancreatitis better 7. Morbid obesity Problems: Assessment/Plan 1. Ambulation 2. continue a/b Subjective 24 Hr Interval Summary Constitutional: improved, no complaints Eyes: no complaints ENT: no complaints Respiratory: no complaints Cardiovascular: no complaints Gastrointestinal: no complaints, pain Genitourinary: no complaints Musculoskeletal: restricted range of motion (due to binder) Exam/Review of Systems Vital Signs Vitals Vital Signs Date Time Temp Pulse Resp B/P Pulse Ox O2 Delivery O2 Flow Rate FiO2 07/25/16 07:35 98.6 76 20 100/61 96 07/23/16 20:00 Nasal Cannula 2.0 Intake and Output 07/24/16 07/24/16 07/25/16 15:00 23:00 07:00 Intake Total 1200 ml 520 ml Output Total 40 ml 70 ml Balance 1160 ml 450 ml Exam Constitutional: alert, oriented, well developed Psych: no complaints Head: normocephalic Eyes: nl conjunctiva ENMT: nl external ears & nose Neck: supple Respiratory: clear to auscultation Cardiovascular: regular rate and rhythm Gastrointestinal: soft Genitourinary - Female: nl adnexae Skin: nl turgor, other (2. drainages) Results Result Diagram: 07/25/16 0430 07/25/16 0430 Results 24 hrs Laboratory Tests Test 07/24/16 17:06 07/24/16 19:55 07/25/16 01:58 07/25/16 04:30 Bedside Glucose 101 99 99 White Blood Count 10.3 Red Blood Count . Hemoglobin 10.8 L Hematocrit 34.3 L Mean Corpuscular Volume 81.5 L Mean Corpuscular Hemoglobin 25.7 L Mean Corpuscular Hemoglobin Concent 31.5 L Red Cell Distribution Width 14.7 H Platelet Count 401 Mean Platelet Volume 9.3 Neutrophils % 50.8 Lymphocytes % 36.1 Monocytes % 7.2 Eosinophils % 5.1 Basophils % 0.4 Nucleated Red Blood Cells % 0.0 Neutrophils # 5.3 Lymphocytes # 3.7 H Monocytes # 0.7 Eosinophils # 0.5 Basophils # 0.0 Nucleated Red Blood Cells # 0.0 Sodium Level 141 Potassium Level 3.2 L Chloride Level 102 Carbon Dioxide Level 27 Anion Gap 15 Blood Urea Nitrogen 6 L Creatinine 0.49 Glucose Level 97 Calcium Level 8.5 Total Bilirubin 0.2 Direct Bilirubin 0.00 Indirect Bilirubin 0.2 Aspartate Amino Transf (AST/SGOT) 22 Alanine Aminotransferase (ALT/SGPT) 23 Alkaline Phosphatase 70 Total Protein 7.0 Albumin 3.4 Globulin 3.60 H Albumin/Globulin Ratio 0.94 Test 07/25/16 07:55 07/25/16 11:39 Bedside Glucose 101 112 Medications Medications Current Medications Ondansetron HCl (Zofran Inj) 4 mg Q6H PRN IV NAUSEA AND/OR VOMITING Last administered on 07/25/16 09:50; Admin Dose 4 MG; Start 07/08/16 at 20:30 Acetaminophen (Tylenol Tab) 650 mg Q6H PRN PO PAIN AND OR ELEVATED TEMP Last administered on 07/21/16 18:28; Admin Dose 650 MG; Start 07/08/16 at 20:30 Diagnostic Test (Pha) (Accu-Chek) 1 ea 02 XX ; Start 07/09/16 at 02:00 Miscellaneous Information 1 ea NOTE XX ; Start 07/08/16 at 20:30 Glucose (Glutose) 15 gm Q15M PRN PO DECREASED GLUCOSE; Start 07/08/16 at 20:30 Glucose (Glutose) 22.5 gm Q15M PRN PO DECREASED GLUCOSE; Start 07/08/16 at 20:30 Dextrose (D50w Syringe) 25 ml Q15M PRN IV DECREASED GLUCOSE; Start 07/08/16 at 20:30 Dextrose (D50w Syringe) 50 ml Q15M PRN IV DECREASED GLUCOSE; Start 07/08/16 at 20:30 Glucagon (Glucagen) 1 mg Q15M PRN IM DECREASED GLUCOSE; Start 07/08/16 at 20:30 Glucose (Glutose) 15 gm Q15M PRN BUCCAL DECREASED GLUCOSE; Start 07/08/16 at 20: 30 Alprazolam (Xanax) 2 mg BID PO Last administered on 07/25/16 08:45; Admin Dose 2 MG; Start 07/08/16 at 21:00 Sertraline HCl (Zoloft) 200 mg DAILY PO Last administered on 07/25/16 08:45; Admin Dose 200 MG; Start 07/09/16 at 09:00 Losartan Potassium (Cozaar) 25 mg DAILY@21 PO Last administered on 07/24/16 20 :01; Admin Dose 25 MG; Start 07/08/16 at 21:00 Zolpidem Tartrate (Ambien) 5 mg HS PRN PO INSOMNIA Last administered on 00:15; Admin Dose 5 MG; Start 07/08/16 at 21:00 Acetaminophen/ Aspirin/Caffeine (Excedrin) 2 tab DAILY PRN PO HEADACHE Last administered on 07/19/16 20:07; Admin Dose 2 TAB; Start 07/09/16 at 19:30 Oxycodone/ Acetaminophen (Percocet (5/ 325)) 1 tab Q6H PRN PO PAIN Last administered on 07/25/16 03:31; Admin Dose 1 TAB; Start 07/11/16 at 15:45 Pantoprazole (Protonix Tab) 40 mg DAILY@06 PO Last administered on 07/25/16 05 :19; Admin Dose 40 MG; Start 07/14/16 at 06:00 Simethicone (Mylicon) 80 mg BID PO Last administered on 07/25/16 08:45; Admin Dose 80 MG; Start 07/21/16 at 23:00 Hydromorphone HCl (Dilaudid) 0.3 mg Q4H PRN IV PAIN; Start 07/25/16 at 13:00 DEVONTE LORD Jul 25, 2016 12:22
[2016-07-25] MEDS ORDERED: HYDROmorphONE 1 MG/ML SYG IV PRN (13:00)
--- NOTE | 2016-07-25 15:16 | CONS ---
Date/Time of Note Date/Time of Note DATE: 07/25/16 TIME: 15:16 Assessment/Plan Assessment/Plan Chief Complaint/Hosp Course SUBJECTIVE: No events, c/o pain, looks comfortable, tolerates regular diet PHYSICAL EXAMINATION GENERAL: Morbidly obese, middle-aged, woman who is alert, in no distress. HEENT: Head atraumatic, normocephalic. Sclerae are anicteric. Buccal mucosa dry. NECK: Supple. CHEST: Rise symmetrical. Breath sounds clear. HEART: S1, S2. ABDOMEN: Soft, bowel tones present. EXTREMITIES: Without cyanosis. SKIN: No jaundice, no cyanosis. ASSESSMENT: 1. Pancreatitis, s/p ERCP 2. Status post CT-guided aspiration of intraabdominal fluid on 07/10/2016, s/p catheter exchange 07/23/16==>fluid cultures negative. 3. Morbid obesity. 4. History of cholecystectomy. 5. Biliary leak, s/p ERCP/stent placement 07/19/16. PLAN: Remains stable, off abx DW staff Problems: Consultation Date/Type/Reason Admit Date/Time Jul 08, 2016 at 18:34 Type of Consultation: ID Exam/Review of Systems Vital Signs Vitals Vital Signs Date Time Temp Pulse Resp B/P Pulse Ox O2 Delivery O2 Flow Rate FiO2 07/25/16 07:35 98.6 76 20 100/61 96 07/23/16 20:00 Nasal Cannula 2.0 Intake and Output 07/24/16 07/24/16 07/25/16 15:00 23:00 07:00 Intake Total 1200 ml 520 ml Output Total 40 ml 70 ml Balance 1160 ml 450 ml Results Result Diagram: 07/25/16 0430 07/25/16 0430 Results 24 hrs Laboratory Tests Test 07/24/16 17:06 07/24/16 19:55 07/25/16 01:58 07/25/16 04:30 Bedside Glucose 101 99 99 White Blood Count 10.3 Red Blood Count . Hemoglobin 10.8 L Hematocrit 34.3 L Mean Corpuscular Volume 81.5 L Mean Corpuscular Hemoglobin 25.7 L Mean Corpuscular Hemoglobin Concent 31.5 L Red Cell Distribution Width 14.7 H Platelet Count 401 Mean Platelet Volume 9.3 Neutrophils % 50.8 Lymphocytes % 36.1 Monocytes % 7.2 Eosinophils % 5.1 Basophils % 0.4 Nucleated Red Blood Cells % 0.0 Neutrophils # 5.3 Lymphocytes # 3.7 H Monocytes # 0.7 Eosinophils # 0.5 Basophils # 0.0 Nucleated Red Blood Cells # 0.0 Sodium Level 141 Potassium Level 3.2 L Chloride Level 102 Carbon Dioxide Level 27 Anion Gap 15 Blood Urea Nitrogen 6 L Creatinine 0.49 Glucose Level 97 Calcium Level 8.5 Total Bilirubin 0.2 Direct Bilirubin 0.00 Indirect Bilirubin 0.2 Aspartate Amino Transf (AST/SGOT) 22 Alanine Aminotransferase (ALT/SGPT) 23 Alkaline Phosphatase 70 Total Protein 7.0 Albumin 3.4 Globulin 3.60 H Albumin/Globulin Ratio 0.94 Test 07/25/16 07:55 07/25/16 11:39 Bedside Glucose 101 112 Medications Medications Current Medications Ondansetron HCl (Zofran Inj) 4 mg Q6H PRN IV NAUSEA AND/OR VOMITING Last administered on 07/25/16 09:50; Admin Dose 4 MG; Start 07/08/16 at 20:30 Acetaminophen (Tylenol Tab) 650 mg Q6H PRN PO PAIN AND OR ELEVATED TEMP Last administered on 07/21/16 18:28; Admin Dose 650 MG; Start 07/08/16 at 20:30 Diagnostic Test (Pha) (Accu-Chek) 1 ea 02 XX ; Start 07/09/16 at 02:00 Miscellaneous Information 1 ea NOTE XX ; Start 07/08/16 at 20:30 Glucose (Glutose) 15 gm Q15M PRN PO DECREASED GLUCOSE; Start 07/08/16 at 20:30 Glucose (Glutose) 22.5 gm Q15M PRN PO DECREASED GLUCOSE; Start 07/08/16 at 20:30 Dextrose (D50w Syringe) 25 ml Q15M PRN IV DECREASED GLUCOSE; Start 07/08/16 at 20:30 Dextrose (D50w Syringe) 50 ml Q15M PRN IV DECREASED GLUCOSE; Start 07/08/16 at 20:30 Glucagon (Glucagen) 1 mg Q15M PRN IM DECREASED GLUCOSE; Start 07/08/16 at 20:30 Glucose (Glutose) 15 gm Q15M PRN BUCCAL DECREASED GLUCOSE; Start 07/08/16 at 20: 30 Alprazolam (Xanax) 2 mg BID PO Last administered on 07/25/16 08:45; Admin Dose 2 MG; Start 07/08/16 at 21:00 Sertraline HCl (Zoloft) 200 mg DAILY PO Last administered on 07/25/16 08:45; Admin Dose 200 MG; Start 07/09/16 at 09:00 Losartan Potassium (Cozaar) 25 mg DAILY@21 PO Last administered on 07/24/16 20 :01; Admin Dose 25 MG; Start 07/08/16 at 21:00 Zolpidem Tartrate (Ambien) 5 mg HS PRN PO INSOMNIA Last administered on 00:15; Admin Dose 5 MG; Start 07/08/16 at 21:00 Acetaminophen/ Aspirin/Caffeine (Excedrin) 2 tab DAILY PRN PO HEADACHE Last administered on 07/19/16 20:07; Admin Dose 2 TAB; Start 07/09/16 at 19:30 Oxycodone/ Acetaminophen (Percocet (5/ 325)) 1 tab Q6H PRN PO PAIN Last administered on 07/25/16 14:37; Admin Dose 1 TAB; Start 07/11/16 at 15:45 Pantoprazole (Protonix Tab) 40 mg DAILY@06 PO Last administered on 07/25/16 05 :19; Admin Dose 40 MG; Start 07/14/16 at 06:00 Simethicone (Mylicon) 80 mg BID PO Last administered on 07/25/16 08:45; Admin Dose 80 MG; Start 07/21/16 at 23:00 Hydromorphone HCl (Dilaudid) 0.3 mg Q4H PRN IV PAIN Last administered on 13:31; Admin Dose 0.3 MG; Start 07/25/16 at 13:00 ABNER BALL NP Jul 25, 2016 15:16
--- NOTE | 2016-07-25 16:06 | CONS ---
Date/Time of Note Date/Time of Note DATE: 07/25/16 TIME: 16:05 Assessment/Plan Assessment/Plan Additional Assessment/Plan IMPRESSION: 1. Biloma persistent for almost 2 months postoperatively after removal of the gallbladder. 2. Overweight. 3. Status post cholecystectomy. 4. Status post sphincterotomy and placement of a stent for biliary leak 5. Abdominal pain and nausea due to pancreatitis mild Plan N.p.o., Ringer lactate solution at 50 cc/h amylase and lipase, improved Clear liquid diet, advance to regular low-fat diet. Patient needs to lose weight also Patient has 2 drains in the right upper quadrant. Both the drains are draining biliary material. This was a old collection of bile. Patient feels much comfortable and less symptomatic after the placement of biliary stent If the drainage is reduced drastically to minimal then we can you remove drainage tube Consultation Date/Type/Reason Admit Date/Time Jul 08, 2016 at 18:34 Type of Consultation: ID [id number] HR Interval Summary Free Text/Dictation Patient complains of pain in the right upper quadrant, at the site of insertion of drainage tube. She wants to increase the dose of Dilaudid Exam/Review of Systems Vital Signs Vitals Vital Signs Date Time Temp Pulse Resp B/P Pulse Ox O2 Delivery O2 Flow Rate FiO2 07/25/16 07:35 98.6 76 20 100/61 96 07/23/16 20:00 Nasal Cannula 2.0 Intake and Output 07/24/16 07/24/16 07/25/16 15:00 23:00 07:00 Intake Total 1200 ml 520 ml Output Total 40 ml 70 ml Balance 1160 ml 450 ml Exam Constitutional: alert, oriented, well developed Psych: nl mood/affect, no complaints Head: atraumatic, normocephalic Eyes: EOMI, PERRL, nl conjunctiva, nl lids, nl sclera ENMT: nl external ears & nose, nl lips & teeth, nl nasal mucosa & septum Neck: non-tender, supple Respiratory: clear to auscultation, normal air movement Cardiovascular: nl pulses, regular rate and rhythm Gastrointestinal: nl liver, spleen, non-tender, soft Musculoskeletal: nl extremities to inspection, nl gait and stance Extremities: normal pulses Neurological: CREDIT INTERN II-XII intact, nl mental status, nl speech, nl strength Skin: nl turgor, No rash or lesions Lymph: nl lymph nodes Results Result Diagram: 4/21/17 0430 07/25/16 0430 Results 24 hrs Laboratory Tests Test 07/24/16 17:06 07/24/16 19:55 07/25/16 01:58 07/25/16 04:30 Bedside Glucose 101 99 99 White Blood Count 10.3 Red Blood Count 4. Hemoglobin 10.8 L Hematocrit 34.3 L Mean Corpuscular Volume 81.5 L Mean Corpuscular Hemoglobin 25.7 L Mean Corpuscular Hemoglobin Concent 31.5 L Red Cell Distribution Width 14.7 H Platelet Count 401 Mean Platelet Volume 9.3 Neutrophils % 50.8 Lymphocytes % 36.1 Monocytes % 7.2 Eosinophils % 5.1 Basophils % 0.4 Nucleated Red Blood Cells % 0.0 Neutrophils # 5.3 Lymphocytes # 3.7 H Monocytes # 0.7 Eosinophils # 0.5 Basophils # 0.0 Nucleated Red Blood Cells # 0.0 Sodium Level 141 Potassium Level 3.2 L Chloride Level 102 Carbon Dioxide Level 27 Anion Gap 15 Blood Urea Nitrogen 6 L Creatinine 0.49 Glucose Level 97 Calcium Level 8.5 Total Bilirubin 0.2 Direct Bilirubin 0.00 Indirect Bilirubin 0.2 Aspartate Amino Transf (AST/SGOT) 22 Alanine Aminotransferase (ALT/SGPT) 23 Alkaline Phosphatase 70 Total Protein 7.0 Albumin 3.4 Globulin 3.60 H Albumin/Globulin Ratio 0.94 Test 07/25/16 07:55 07/25/16 11:39 Bedside Glucose 101 112 Medications Medications Current Medications Ondansetron HCl (Zofran Inj) 4 mg Q6H PRN IV NAUSEA AND/OR VOMITING Last administered on 07/25/16 09:50; Admin Dose 4 MG; Start 07/08/16 at 20:30 Acetaminophen (Tylenol Tab) 650 mg Q6H PRN PO PAIN AND OR ELEVATED TEMP Last administered on 07/21/16 18:28; Admin Dose 650 MG; Start 07/08/16 at 20:30 Diagnostic Test (Pha) (Accu-Chek) 1 ea 02 XX ; Start 07/09/16 at 02:00 Miscellaneous Information 1 ea NOTE XX ; Start 07/08/16 at 20:30 Glucose (Glutose) 15 gm Q15M PRN PO DECREASED GLUCOSE; Start 07/08/16 at 20:30 Glucose (Glutose) 22.5 gm Q15M PRN PO DECREASED GLUCOSE; Start 07/08/16 at 20:30 Dextrose (D50w Syringe) 25 ml Q15M PRN IV DECREASED GLUCOSE; Start 07/08/16 at 20:30 Dextrose (D50w Syringe) 50 ml Q15M PRN IV DECREASED GLUCOSE; Start 07/08/16 at 20:30 Glucagon (Glucagen) 1 mg Q15M PRN IM DECREASED GLUCOSE; Start 07/08/16 at 20:30 Glucose (Glutose) 15 gm Q15M PRN BUCCAL DECREASED GLUCOSE; Start 07/08/16 at 20: 30 Alprazolam (Xanax) 2 mg BID PO Last administered on 07/25/16 08:45; Admin Dose 2 MG; Start 07/08/16 at 21:00 Sertraline HCl (Zoloft) 200 mg DAILY PO Last administered on 07/25/16 08:45; Admin Dose 200 MG; Start 07/09/16 at 09:00 Losartan Potassium (Cozaar) 25 mg DAILY@21 PO Last administered on 07/24/16 20 :01; Admin Dose 25 MG; Start 07/08/16 at 21:00 Zolpidem Tartrate (Ambien) 5 mg HS PRN PO INSOMNIA Last administered on 00:15; Admin Dose 5 MG; Start 07/08/16 at 21:00 Acetaminophen/ Aspirin/Caffeine (Excedrin) 2 tab DAILY PRN PO HEADACHE Last administered on 07/19/16 20:07; Admin Dose 2 TAB; Start 07/09/16 at 19:30 Oxycodone/ Acetaminophen (Percocet (5/ 325)) 1 tab Q6H PRN PO PAIN Last administered on 07/25/16 14:37; Admin Dose 1 TAB; Start 07/11/16 at 15:45 Pantoprazole (Protonix Tab) 40 mg DAILY@06 PO Last administered on 07/25/16 05 :19; Admin Dose 40 MG; Start 07/14/16 at 06:00 Simethicone (Mylicon) 80 mg BID PO Last administered on 07/25/16 08:45; Admin Dose 80 MG; Start 07/21/16 at 23:00 Hydromorphone HCl (Dilaudid) 0.5 mg Q4H PRN IV PAIN; Start 07/25/16 at 17:00 JESUS AGUILAR MD Jul 25, 2016 16:06
[2016-07-25] MEDS: LOSARTAN 25 MG TAB PO SCH (21:41)
[2016-07-26] MEDS: ZOLPIDEM 5 MG TAB PO PRN (00:11)
[2016-07-26] MEDS: HYDROmorphONE 1 MG/ML SYG IV PRN ×6 (01:32→21:58)
[2016-07-26] MEDS: ACCU-CHEK XX SCH (02:00)
[2016-07-26] MEDS: PANTOPRAZOLE (EC) 40 MG TAB PO SCH (05:36)
[2016-07-26] MEDS: ONDANSETRON 4 MG INJ IV PRN ×2 (05:42→13:51)
[2016-07-26 06:13] LABS: ADD SCAN DIFF NO
[2016-07-26 06:28] LABS: BASOPHIL # 0.1 10^3/ul (0.0-0.1); BASOPHILS % 0.6 % (0.0-2.0); EOSINOPHILS # 0.5 10^3/ul (0.0-0.5); EOSINOPHILS % 4.8 % (0.0-7.0); HEMATOCRIT 33.8 % (37.0-47.0); HEMOGLOBIN 10.9 g/dl (12.0-16.0); LYMPHOCYTES # 4.5 10^3/ul (0.8-2.9); LYMPHOCYTES % 43.5 % (15.0-51.0); MEAN CORPUSCULAR HEMOGLOBIN 26.5 pg (29.0-33.0); MEAN CORPUSCULAR HGB CONC 32.2 g/dl (32.0-37.0); MEAN PLATELET VOLUME 9.5 fl (7.4-10.4); MONOCYTE # 0.8 10^3/ul (0.3-0.9); MONOCYTES % 7.3 % (0.0-11.0); NEUTROPHIL # 4.5 10^3/ul (1.6-7.5); NEUTROPHILS % 43.5 % (39.0-77.0); PLATELET COUNT 398 10^3/UL (140-415); RED BLOOD COUNT 4.12 10^6/ul (4.20-5.40); RED CELL DISTRIBUTION WIDTH 14.6 % (11.5-14.5); WHITE BLOOD COUNT 10.4 10^3/ul (4.8-10.8)
[2016-07-26 06:29] LABS: POTASSIUM 3.7 mmol/L (3.5-5.1)
[2016-07-26 06:31] LABS: CREATININE 0.47 mg/dl (0.44-1.00)
[2016-07-26 06:32] LABS: CALCIUM 8.6 mg/dl (8.4-10.2)
[2016-07-26 07:59] VITALS: BP 96/50; RESP 18
[2016-07-26] MEDS: INSULIN ASPART [NOVOLOG] 3 ML PEN SC SCH ×4 (08:00→21:00)
[2016-07-26] MEDS: ALPRAZOLAM 1 MG TAB PO SCH ×2 (08:08→20:52)
[2016-07-26] MEDS: SERTRALINE 100 MG TAB PO SCH (08:08)
--- NOTE | 2016-07-26 10:45 | CONS ---
Date/Time of Note Date/Time of Note DATE: 07/26/16 TIME: 10:40 Assessment/Plan Assessment/Plan Chief Complaint/Hosp Course IMPRESSION: 1. Biloma persistent for almost 2 months postoperatively after removal of the gallbladder. Drainage appears to be reducing, 40 cc total yesterday (30 cc and 10 cc) 2. Overweight. 3. Status post cholecystectomy. 4. Status post sphincterotomy and placement of a stent for biliary leak 5. Abdominal pain and nausea due to pancreatitis mild Plan continue low fat diet weight loss counseled Recommend removal of pigtail drain if output less than 20 cc/day. However, management per Dr. Georges Problems: Consultation Date/Type/Reason Admit Date/Time Jul 08, 2016 at 18:34 Initial Consult Date Type of Consultation: GI 24 HR Interval Summary Free Text/Dictation pain at the pigtail drain site, no n/v Exam/Review of Systems Vital Signs Vitals Vital Signs Date Time Temp Pulse Resp B/P Pulse Ox O2 Delivery O2 Flow Rate FiO2 07/26/16 07:59 97.9 65 18 96/50 98 07/23/16 20:00 Nasal Cannula 2.0 Intake and Output 07/25/16 07/25/16 07/26/16 14:59 22:59 06:59 Intake Total 1080 ml Output Total 60 ml 0 ml Balance 1020 ml 0 ml Exam Constitutional: alert, obese, oriented Psych: anxiety Head: atraumatic, normocephalic Eyes: EOMI, nl conjunctiva, nl lids, nl sclera ENMT: mucosa pink and moist, nl external ears & nose, nl lips & teeth, nl nasal mucosa & septum Neck: non-tender, supple Respiratory: clear to auscultation, normal air movement Cardiovascular: nl pulses, regular rate and rhythm Gastrointestinal: bowel sounds, soft, tender (TTP at drainage site) Results Result Diagram: 07/26/1618 07/26/16 0518 Results 24 hrs Laboratory Tests Test 07/25/16 11:39 07/25/16 17:22 07/25/16 20:41 07/26/16 05:18 Bedside Glucose 112 81 91 White Blood Count 10.4 Red Blood Count 4.12 L Hemoglobin 10.9 L Hematocrit 33.8 L Mean Corpuscular Volume 82.0 Mean Corpuscular Hemoglobin 26.5 L Mean Corpuscular Hemoglobin Concent 32.2 Red Cell Distribution Width 14.6 H Platelet Count 398 Mean Platelet Volume 9.5 Neutrophils % 43.5 Lymphocytes % 43.5 Monocytes % 7.3 Eosinophils % 4.8 Basophils % 0.6 Nucleated Red Blood Cells % 0.0 Neutrophils # 4.5 Lymphocytes # 4.5 H Monocytes # 0.8 Eosinophils # 0.5 Basophils # 0.1 Nucleated Red Blood Cells # 0.0 Sodium Level 142 Potassium Level 3.7 Chloride Level 102 Carbon Dioxide Level 30 Anion Gap 14 Blood Urea Nitrogen 5 L Creatinine 0.47 Glucose Level 90 Calcium Level 8.6 Test 07/26/16 08:00 Bedside Glucose 88 Medications Medications Current Medications Ondansetron HCl (Zofran Inj) 4 mg Q6H PRN IV NAUSEA AND/OR VOMITING Last administered on 07/26/16 05:42; Admin Dose 4 MG; Start 07/08/16 at 20:30 Acetaminophen (Tylenol Tab) 650 mg Q6H PRN PO PAIN AND OR ELEVATED TEMP Last administered on 07/21/16 18:28; Admin Dose 650 MG; Start 07/08/16 at 20:30 Diagnostic Test (Pha) (Accu-Chek) 1 ea 02 XX ; Start 07/09/16 at 02:00 Miscellaneous Information 1 ea NOTE XX ; Start 07/08/16 at 20:30 Glucose (Glutose) 15 gm Q15M PRN PO DECREASED GLUCOSE; Start 07/08/16 at 20:30 Glucose (Glutose) 22.5 gm Q15M PRN PO DECREASED GLUCOSE; Start 07/08/16 at 20:30 Dextrose (D50w Syringe) 25 ml Q15M PRN IV DECREASED GLUCOSE; Start 07/08/16 at 20:30 Dextrose (D50w Syringe) 50 ml Q15M PRN IV DECREASED GLUCOSE; Start 07/08/16 at 20:30 Glucagon (Glucagen) 1 mg Q15M PRN IM DECREASED GLUCOSE; Start 07/08/16 at 20:30 Glucose (Glutose) 15 gm Q15M PRN BUCCAL DECREASED GLUCOSE; Start 07/08/16 at 20: 30 Alprazolam (Xanax) 2 mg BID PO Last administered on 07/26/16 08:08; Admin Dose 2 MG; Start 07/08/16 at 21:00 Sertraline HCl (Zoloft) 200 mg DAILY PO Last administered on 07/26/16 08:08; Admin Dose 200 MG; Start 07/09/16 at 09:00 Losartan Potassium (Cozaar) 25 mg DAILY@21 PO Last administered on 07/25/16 21 :41; Admin Dose 25 MG; Start 07/08/16 at 21:00 Zolpidem Tartrate (Ambien) 5 mg HS PRN PO INSOMNIA Last administered on 00:11; Admin Dose 5 MG; Start 07/08/16 at 21:00 Acetaminophen/ Aspirin/Caffeine (Excedrin) 2 tab DAILY PRN PO HEADACHE Last administered on 07/19/16 20:07; Admin Dose 2 TAB; Start 07/09/16 at 19:30 Oxycodone/ Acetaminophen (Percocet (5/ 325)) 1 tab Q6H PRN PO PAIN Last administered on 07/25/16 22:49; Admin Dose 1 TAB; Start 07/11/16 at 15:45 Pantoprazole (Protonix Tab) 40 mg DAILY@06 PO Last administered on 07/26/16 05 :36; Admin Dose 40 MG; Start 07/14/16 at 06:00 Simethicone (Mylicon) 80 mg BID PO Last administered on 07/26/16 08:07; Admin Dose 80 MG; Start 07/21/16 at 23:00 Hydromorphone HCl (Dilaudid) 0.5 mg Q4H PRN IV PAIN Last administered on 09:41; Admin Dose 0.5 MG; Start 07/25/16 at 17:00 RUBEN GUARDADO MD Jul 26, 2016 10:45
[2016-07-26] MEDS ORDERED: POTASSIUM CHLORIDE (SR) 20 MEQ TAB PO STA (13:30)
--- NOTE | 2016-07-26 13:33 | PN ---
Date/Time of Note Date/Time of Note DATE: 07/26/16 TIME: 13:32 Assessment/Plan VTE Prophylaxis VTE Prophylaxis Intervention: ambulation Lines/Catheters IV C[facility] Type [facility]from [facility] Urinary Cath still in place: No Assessment/Plan Chief Complaint/Hosp Course 1. hx cholecystectomy 2.s/ Post-fluid collection around the liver, biloma. 3 leucocytosis 4 s/p ir drainage of abd fluid 5. s/p ercp and stent placement 6 pancreatitis better 7. Morbid obesity Problems: Assessment/Plan 1. Ambulation TID Subjective 24 Hr Interval Summary Constitutional: improved, no complaints Exam/Review of Systems Vital Signs Vitals Vital Signs Date Time Temp Pulse Resp B/P Pulse Ox O2 Delivery O2 Flow Rate FiO2 07/26/16 07:59 97.9 65 18 96/50 98 07/23/16 20:00 Nasal Cannula 2.0 Intake and Output 07/25/16 07/25/16 07/26/16 15:00 23:00 07:00 Intake Total 1080 ml Output Total 60 ml 0 ml Balance 1020 ml 0 ml Exam Constitutional: alert, oriented Psych: no complaints Head: normocephalic Eyes: nl conjunctiva ENMT: nl external ears & nose Neck: supple Respiratory: clear to auscultation Cardiovascular: regular rate and rhythm Gastrointestinal: other (2 stents clean and dry), soft Results Result Diagram: 07/26/1618 07/26/16 0518 Results 24 hrs Laboratory Tests Test 07/25/16 17:22 07/25/16 20:41 07/26/16 05:18 07/26/16 08:00 Bedside Glucose 81 91 88 White Blood Count 10.4 Red Blood Count 4.12 L Hemoglobin 10.9 L Hematocrit 33.8 L Mean Corpuscular Volume 82.0 Mean Corpuscular Hemoglobin 26.5 L Mean Corpuscular Hemoglobin Concent 32.2 Red Cell Distribution Width 14.6 H Platelet Count 398 Mean Platelet Volume 9.5 Neutrophils % 43.5 Lymphocytes % 43.5 Monocytes % 7.3 Eosinophils % 4.8 Basophils % 0.6 Nucleated Red Blood Cells % 0.0 Neutrophils # 4.5 Lymphocytes # 4.5 H Monocytes # 0.8 Eosinophils # 0.5 Basophils # 0.1 Nucleated Red Blood Cells # 0.0 Sodium Level 142 Potassium Level 3.7 Chloride Level 102 Carbon Dioxide Level 30 Anion Gap 14 Blood Urea Nitrogen 5 L Creatinine 0.47 Glucose Level 90 Calcium Level 8.6 Test 07/26/16 11:48 Bedside Glucose 98 Medications Medications Current Medications Ondansetron HCl (Zofran Inj) 4 mg Q6H PRN IV NAUSEA AND/OR VOMITING Last administered on 07/26/16 05:42; Admin Dose 4 MG; Start 07/08/16 at 20:30 Acetaminophen (Tylenol Tab) 650 mg Q6H PRN PO PAIN AND OR ELEVATED TEMP Last administered on 07/21/16 18:28; Admin Dose 650 MG; Start 07/08/16 at 20:30 Diagnostic Test (Pha) (Accu-Chek) 1 ea 02 XX ; Start 07/09/16 at 02:00 Miscellaneous Information 1 ea NOTE XX ; Start 07/08/16 at 20:30 Glucose (Glutose) 15 gm Q15M PRN PO DECREASED GLUCOSE; Start 07/08/16 at 20:30 Glucose (Glutose) 22.5 gm Q15M PRN PO DECREASED GLUCOSE; Start 07/08/16 at 20:30 Dextrose (D50w Syringe) 25 ml Q15M PRN IV DECREASED GLUCOSE; Start 07/08/16 at 20:30 Dextrose (D50w Syringe) 50 ml Q15M PRN IV DECREASED GLUCOSE; Start 07/08/16 at 20:30 Glucagon (Glucagen) 1 mg Q15M PRN IM DECREASED GLUCOSE; Start 07/08/16 at 20:30 Glucose (Glutose) 15 gm Q15M PRN BUCCAL DECREASED GLUCOSE; Start 07/08/16 at 20: 30 Alprazolam (Xanax) 2 mg BID PO Last administered on 07/26/16 08:08; Admin Dose 2 MG; Start 07/08/16 at 21:00 Sertraline HCl (Zoloft) 200 mg DAILY PO Last administered on 07/26/16 08:08; Admin Dose 200 MG; Start 07/09/16 at 09:00 Losartan Potassium (Cozaar) 25 mg DAILY@21 PO Last administered on 07/25/16 21 :41; Admin Dose 25 MG; Start 07/08/16 at 21:00 Zolpidem Tartrate (Ambien) 5 mg HS PRN PO INSOMNIA Last administered on 00:11; Admin Dose 5 MG; Start 07/08/16 at 21:00 Acetaminophen/ Aspirin/Caffeine (Excedrin) 2 tab DAILY PRN PO HEADACHE Last administered on 07/19/16 20:07; Admin Dose 2 TAB; Start 07/09/16 at 19:30 Oxycodone/ Acetaminophen (Percocet (5/ 325)) 1 tab Q6H PRN PO PAIN Last administered on 07/25/16 22:49; Admin Dose 1 TAB; Start 07/11/16 at 15:45 Pantoprazole (Protonix Tab) 40 mg DAILY@06 PO Last administered on 07/26/16 05 :36; Admin Dose 40 MG; Start 07/14/16 at 06:00 Simethicone (Mylicon) 80 mg BID PO Last administered on 07/26/16 08:07; Admin Dose 80 MG; Start 07/21/16 at 23:00 Hydromorphone HCl (Dilaudid) 0.5 mg Q4H PRN IV PAIN Last administered on 09:41; Admin Dose 0.5 MG; Start 07/25/16 at 17:00 DEVONTE LORD Jul 26, 2016 13:33
--- NOTE | 2016-07-26 18:35 | PN ---
DATE: 07/26/2016 SUBJECTIVE: Complaining of pain in the right upper quadrant and more laterally. She states that this pain actually has occurred since they put the _ ___ and since she had developed pancreatitis, now with pancreatitis, bilateral subcostal pain. The left side is gone now, but the right side still persists. OBJECTIVE VITAL SIGNS: Temperature 97.9, heart rate 65, respirations 18, blood pressure 96/50, saturation 98% on room air. LABS: WBC 10,400 today, normal, 43% neutrophils, 43% lymphocytes. Hemoglobin 10.9, hematocrit 33.8. Chemistry: BUN, creatinine, sodium and potassium are within normal limits. Pigtail drainage: There are 2 pigtails in the right upper quadrant; #1 has drained yesterday, drained from 6:00 a.m., #1 has drained 10 mL, #2 has drained 20 mL. This is in the course of 9 hours. ASSESSMENT: Loculated fluid accumulation between right lobe of the liver and chest wall has proved to be bilious. Patient underwent ERCP and sphincterotomy and placement of a stent in the common bile duct. Since one pigtail drain was not completely draining the accumulation, , so #2 was placed to cover all bases ____. PLAN: Continue current care. If by Thursday the drainage from the pigtail tube is less than 15 mL, I am going to remove them and send the patient home. Otherwise, the patient has 2 alternatives, keep the patient in the hospital until it becomes less than 10 mL, or send the patient home with home health care to checked Jony-Steinberg drains every day and measure it and when it drops to below 10 mL, then the patient is going to call Dr. Dixon' office and then we will admit the patient through Dr. Dixon' office to take out the tubes and then send her home. Dictated By: BRADLY CORTES/ARGELIA Conf#: [id number] DID#: [id number] MTDD
[2016-07-26] MEDS: OXYCODONE/ACETAMINOPHEN (5/325) TAB PO PRN (18:52)
[2016-07-26 20:06] VITALS: BP 116/54; RESP 18
[2016-07-26] MEDS: LOSARTAN 25 MG TAB PO SCH (20:52)
[2016-07-27] MEDS: ZOLPIDEM 5 MG TAB PO PRN (00:36)
[2016-07-27] MEDS: OXYCODONE/ACETAMINOPHEN (5/325) TAB PO PRN (00:54)
[2016-07-27] MEDS: HYDROmorphONE 1 MG/ML SYG IV PRN ×6 (01:55→18:29)
[2016-07-27] MEDS: ACCU-CHEK XX SCH (02:00)
[2016-07-27] MEDS: PANTOPRAZOLE (EC) 40 MG TAB PO SCH (05:50)
[2016-07-27 06:16] LABS: ADD SCAN DIFF NO
[2016-07-27 06:25] LABS: BASOPHIL # 0.1 10^3/ul (0.0-0.1); BASOPHILS % 0.5 % (0.0-2.0); EOSINOPHILS # 0.5 10^3/ul (0.0-0.5); EOSINOPHILS % 4.2 % (0.0-7.0); HEMATOCRIT 35.2 % (37.0-47.0); HEMOGLOBIN 11.1 g/dl (12.0-16.0); LYMPHOCYTES # 4.8 10^3/ul (0.8-2.9); LYMPHOCYTES % 41.6 % (15.0-51.0); MEAN CORPUSCULAR HGB CONC 31.5 g/dl (32.0-37.0); MEAN CORPUSCULAR VOLUME 82.4 fl (82.0-101.0); MEAN PLATELET VOLUME 9.2 fl (7.4-10.4); MONOCYTE # 0.8 10^3/ul (0.3-0.9); NEUTROPHIL # 5.3 10^3/ul (1.6-7.5); NEUTROPHILS % 46.4 % (39.0-77.0); PLATELET COUNT 417 10^3/UL (140-415); RED BLOOD COUNT 4.27 10^6/ul (4.20-5.40); RED CELL DISTRIBUTION WIDTH 14.7 % (11.5-14.5); WHITE BLOOD COUNT 11.5 10^3/ul (4.8-10.8)
[2016-07-27 06:37] LABS: CALCIUM 8.7 mg/dl (8.4-10.2); CREATININE 0.51 mg/dl (0.44-1.00); POTASSIUM 3.8 mmol/L (3.5-5.1)
[2016-07-27 07:35] VITALS: BP 96/54; RESP 18
[2016-07-27] MEDS: INSULIN ASPART [NOVOLOG] 3 ML PEN SC SCH ×3 (08:00→16:46)
[2016-07-27] MEDS: ONDANSETRON 4 MG INJ IV PRN ×2 (08:57→16:41)
[2016-07-27] MEDS: SERTRALINE 100 MG TAB PO SCH (08:57)
[2016-07-27] MEDS: ALPRAZOLAM 1 MG TAB PO SCH (08:57)
--- NOTE | 2016-07-27 11:04 | CONS ---
Date/Time of Note Date/Time of Note DATE: 07/27/16 TIME: 11:02 Assessment/Plan Assessment/Plan Chief Complaint/Hosp Course IMPRESSION: 1. Biloma persistent for almost 2 months postoperatively after removal of the gallbladder. 2. Overweight. 3. Status post cholecystectomy. 4. Status post sphincterotomy and placement of a stent for biliary leak 5. Abdominal pain and nausea due to pancreatitis mild Plan continue low fat diet weight loss counseled Recommend removal of pigtail drain if output less than 20 cc/day. However, management per Dr. Destini Blair to resume care tomorrow Problems: Consultation Date/Type/Reason Admit Date/Time Jul 08, 2016 at 18:34 Type of Consultation: GI 24 HR Interval Summary Free Text/Dictation patient wants SARAVANAN drains to be out but still draining, complains of abdominal pain at the SARAVANAN drain site Constitutional: improved Exam/Review of Systems Vital Signs Vitals Vital Signs Date Time Temp Pulse Resp B/P Pulse Ox O2 Delivery O2 Flow Rate FiO2 07/27/16 09:07 Nasal Cannula 2.0 07/27/16 07:35 98.1 68 18 96/54 91 Intake and Output 07/26/16 07/26/16 07/27/16 14:59 22:59 06:59 Intake Total 920 ml 410 ml Output Total 50 ml 25 ml Balance 870 ml 385 ml Exam Constitutional: alert, oriented, well developed Psych: nl mood/affect, no complaints Head: atraumatic, normocephalic Eyes: EOMI, nl conjunctiva, nl lids ENMT: nl external ears & nose, nl lips & teeth, nl nasal mucosa & septum Neck: non-tender, supple Respiratory: clear to auscultation, normal air movement Cardiovascular: nl pulses, regular rate and rhythm Gastrointestinal: bowel sounds, non-tender, soft Results Result Diagram: 07/27/16 0550 07/27/16 0550 Results 24 hrs Laboratory Tests Test 07/26/16 11:48 07/26/16 17:41 07/26/16 21:05 07/27/16 05:50 Bedside Glucose 98 90 114 White Blood Count 11.5 H Red Blood Count 4.27 Hemoglobin 11.1 L Hematocrit 35.2 L Mean Corpuscular Volume 82.4 Mean Corpuscular Hemoglobin 26.0 L Mean Corpuscular Hemoglobin Concent 31.5 L Red Cell Distribution Width 14.7 H Platelet Count 417 H Mean Platelet Volume 9.2 Neutrophils % 46.4 Lymphocytes % 41.6 Monocytes % 7.0 Eosinophils % 4.2 Basophils % 0.5 Nucleated Red Blood Cells % 0.0 Neutrophils # 5.3 Lymphocytes # 4.8 H Monocytes # 0.8 Eosinophils # 0.5 Basophils # 0.1 Nucleated Red Blood Cells # 0.0 Sodium Level 139 Potassium Level 3.8 Chloride Level 104 Carbon Dioxide Level 30 Anion Gap 9 # Blood Urea Nitrogen 5 L Creatinine 0.51 Glucose Level 117 Calcium Level 8.7 Test 07/27/16 08:07 Bedside Glucose 116 Medications Medications Current Medications Ondansetron HCl (Zofran Inj) 4 mg Q6H PRN IV NAUSEA AND/OR VOMITING Last administered on 07/27/16 08:57; Admin Dose 4 MG; Start 07/08/16 at 20:30 Acetaminophen (Tylenol Tab) 650 mg Q6H PRN PO PAIN AND OR ELEVATED TEMP Last administered on 07/21/16 18:28; Admin Dose 650 MG; Start 07/08/16 at 20:30 Diagnostic Test (Pha) (Accu-Chek) 1 ea 02 XX ; Start 07/09/16 at 02:00 Miscellaneous Information 1 ea NOTE XX ; Start 07/08/16 at 20:30 Glucose (Glutose) 15 gm Q15M PRN PO DECREASED GLUCOSE; Start 07/08/16 at 20:30 Glucose (Glutose) 22.5 gm Q15M PRN PO DECREASED GLUCOSE; Start 07/08/16 at 20:30 Dextrose (D50w Syringe) 25 ml Q15M PRN IV DECREASED GLUCOSE; Start 07/08/16 at 20:30 Dextrose (D50w Syringe) 50 ml Q15M PRN IV DECREASED GLUCOSE; Start 07/08/16 at 20:30 Glucagon (Glucagen) 1 mg Q15M PRN IM DECREASED GLUCOSE; Start 07/08/16 at 20:30 Glucose (Glutose) 15 gm Q15M PRN BUCCAL DECREASED GLUCOSE; Start 07/08/16 at 20: 30 Alprazolam (Xanax) 2 mg BID PO Last administered on 07/27/16 08:57; Admin Dose 2 MG; Start 07/08/16 at 21:00 Sertraline HCl (Zoloft) 200 mg DAILY PO Last administered on 07/27/16 08:57; Admin Dose 200 MG; Start 07/09/16 at 09:00 Losartan Potassium (Cozaar) 25 mg DAILY@21 PO Last administered on 07/26/16 20 :52; Admin Dose 25 MG; Start 07/08/16 at 21:00 Zolpidem Tartrate (Ambien) 5 mg HS PRN PO INSOMNIA Last administered on 00:36; Admin Dose 5 MG; Start 07/08/16 at 21:00 Acetaminophen/ Aspirin/Caffeine (Excedrin) 2 tab DAILY PRN PO HEADACHE Last administered on 07/19/16 20:07; Admin Dose 2 TAB; Start 07/09/16 at 19:30 Oxycodone/ Acetaminophen (Percocet (5/ 325)) 1 tab Q6H PRN PO PAIN Last administered on 07/27/16 00:54; Admin Dose 1 TAB; Start 07/11/16 at 15:45 Pantoprazole (Protonix Tab) 40 mg DAILY@06 PO Last administered on 07/27/16 05 :50; Admin Dose 40 MG; Start 07/14/16 at 06:00 Simethicone (Mylicon) 80 mg BID PO Last administered on 07/27/16 08:57; Admin Dose 80 MG; Start 07/21/16 at 23:00 Hydromorphone HCl (Dilaudid) 0.5 mg Q4H PRN IV PAIN Last administered on 09:54; Admin Dose 0.5 MG; Start 07/25/16 at 17:00 RUBEN GUARDADO MD Jul 27, 2016 11:04
--- NOTE | 2016-07-27 17:33 | PN ---
DATE: FOLLOWUP PROGRESS NOTE Status post-drainage of the fluid collection within the right lobe of the liver and the chest wall x 2, status post laparoscopic cholecystectomy about 2 to 3 months ago, SUBJECTIVE: Feels much better today, still is complaining of pain and receiving Dilaudid every 4 ho urs around the clock, has been having regular diet and has been having bowel movement. Has walked a round the floor a little bit today. OBJECTIVE GENERAL: Awake, alert, in no acute distress, sitting in the chair. VITAL SIGNS: Temperature 98.1, heart rate 68, respiration 18, blood pressure 96/54, saturation 91% on 2 liter nasal cannula. LABORATORY DATA: WBC 11,500 with 46% neutrophils, hemoglobin 11.1, hematocrit 35.2. Chemistry: So dium, potassium normal, BUN and creatinine normal. Glucose: POC 120. Pigtail drainage #1 40 mL, # 2 35 mL in past 24 hours. The color is brownish clear. ASSESSMENT AND PLAN: The patient is status post laparoscopic cholecystectomy 2 to 3 months ago, wh ich was complicated by some bleeding around the liver and problem with leakage. Eventually patient w as discharged and came back 2 months later complaining of pain in the chest wall. Repeat CT scan revealed loculated collection fluid. Aspiration was done once and revealed brownish f luid which was positive for bile. GI colleague consulted a sphincterotomy. ERCP and stent was placed . Patient continued to have drainage, but it was not draining completely. Repeat CT scan revealed p resence of another loculation, another pigtail drain was placed again a few days ago. Now the patien t probably can go home with pigtail drains to be taken care of by home health care and eventually wh en it stops draining the patient shall go to Dr. Dixon' office and Dr. Dixon will remove the pigtail drains in the office or will admit her to the hospital overnight and they will ____ send her home t he next day. Later on, also should be followed by Dr. Blair for removal of the stent before 6 jensen hs. At this time, patient is eating, tolerating diet. No nausea, no vomiting. Only pain which I a m not sure how bad the pain, may be patient likes taking narcotics, but anyway when she goes home, s he is not going to have any more Dilaudid hopefully. Dictated By: BRADLY CORTES/ARGELIA Conf#: [id number] DID#: [id number]
--- NOTE | 2016-07-27 17:49 | PN ---
Date/Time of Note Date/Time of Note DATE: 07/27/16 TIME: 17:48 Assessment/Plan VTE Prophylaxis VTE Prophylaxis Intervention: other Lines/Catheters IV C[facility]ter Type (from [facility]): [facility] Lock Urinary Cath still in place: No Assessment/Plan Chief Complaint/Hosp Course IMPRESSION: 1. hx cholecystectomy 2.s/ Post-fluid collection around the liver, biloma. s/p ercp and stent The patient has a history of pneumonia, chronic obstructive pulmonary disease, history of obesity. Patient has a history of cholecystectomy, history of appendectomy. 3 leucocytosis 4 s/p ir drainage of abd fluid 5s/p ercp and stent placement 6 pancreatitis better plan antibiotic ck cath drainage per surgery hida neg per dr martin home ok Problems: Subjective 24 Hr Interval Summary Respiratory: no complaints Gastrointestinal: pain (better) Exam/Review of Systems Vital Signs Vitals Vital Signs Date Time Temp Pulse Resp B/P Pulse Ox O2 Delivery O2 Flow Rate FiO2 07/27/16 09:07 Nasal Cannula 2.0 07/27/16 07:35 98.1 68 18 96/54 91 Intake and Output 07/26/16 07/26/16 07/27/16 15:00 23:00 07:00 Intake Total 920 ml 410 ml Output Total 50 ml 25 ml Balance 870 ml 385 ml Exam Respiratory: clear to auscultation Cardiovascular: regular rate and rhythm Gastrointestinal: bowel sounds (+), soft Results Result Diagram: 07/27/16 0550 07/27/16 0550 Results 24 hrs Laboratory Tests Test 07/26/16 21:05 07/27/16 05:50 07/27/16 08:07 07/27/16 12:06 Bedside Glucose 114 116 120 White Blood Count 11.5 H Red Blood Count 4.27 Hemoglobin 11.1 L Hematocrit 35.2 L Mean Corpuscular Volume 82.4 Mean Corpuscular Hemoglobin 26.0 L Mean Corpuscular Hemoglobin Concent 31.5 L Red Cell Distribution Width 14.7 H Platelet Count 417 H Mean Platelet Volume 9.2 Neutrophils % 46.4 Lymphocytes % 41.6 Monocytes % 7.0 Eosinophils % 4.2 Basophils % 0.5 Nucleated Red Blood Cells % 0.0 Neutrophils # 5.3 Lymphocytes # 4.8 H Monocytes # 0.8 Eosinophils # 0.5 Basophils # 0.1 Nucleated Red Blood Cells # 0.0 Sodium Level 139 Potassium Level 3.8 Chloride Level 104 Carbon Dioxide Level 30 Anion Gap 9 # Blood Urea Nitrogen 5 L Creatinine 0.51 Glucose Level 117 Calcium Level 8.7 Test 07/27/16 16:44 Bedside Glucose 124 Medications Medications Current Medications Ondansetron HCl (Zofran Inj) 4 mg Q6H PRN IV NAUSEA AND/OR VOMITING Last administered on 07/27/16 16:41; Admin Dose 4 MG; Start 07/08/16 at 20:30 Acetaminophen (Tylenol Tab) 650 mg Q6H PRN PO PAIN AND OR ELEVATED TEMP Last administered on 07/21/16 18:28; Admin Dose 650 MG; Start 07/08/16 at 20:30 Diagnostic Test (Pha) (Accu-Chek) 1 ea 02 XX ; Start 07/09/16 at 02:00 Miscellaneous Information 1 ea NOTE XX ; Start 07/08/16 at 20:30 Glucose (Glutose) 15 gm Q15M PRN PO DECREASED GLUCOSE; Start 07/08/16 at 20:30 Glucose (Glutose) 22.5 gm Q15M PRN PO DECREASED GLUCOSE; Start 07/08/16 at 20:30 Dextrose (D50w Syringe) 25 ml Q15M PRN IV DECREASED GLUCOSE; Start 07/08/16 at 20:30 Dextrose (D50w Syringe) 50 ml Q15M PRN IV DECREASED GLUCOSE; Start 07/08/16 at 20:30 Glucagon (Glucagen) 1 mg Q15M PRN IM DECREASED GLUCOSE; Start 07/08/16 at 20:30 Glucose (Glutose) 15 gm Q15M PRN BUCCAL DECREASED GLUCOSE; Start 07/08/16 at 20: 30 Alprazolam (Xanax) 2 mg BID PO Last administered on 07/27/16 08:57; Admin Dose 2 MG; Start 07/08/16 at 21:00 Sertraline HCl (Zoloft) 200 mg DAILY PO Last administered on 07/27/16 08:57; Admin Dose 200 MG; Start 07/09/16 at 09:00 Losartan Potassium (Cozaar) 25 mg DAILY@21 PO Last administered on 07/26/16 20 :52; Admin Dose 25 MG; Start 07/08/16 at 21:00 Zolpidem Tartrate (Ambien) 5 mg HS PRN PO INSOMNIA Last administered on 00:36; Admin Dose 5 MG; Start 07/08/16 at 21:00 Acetaminophen/ Aspirin/Caffeine (Excedrin) 2 tab DAILY PRN PO HEADACHE Last administered on 07/19/16 20:07; Admin Dose 2 TAB; Start 07/09/16 at 19:30 Oxycodone/ Acetaminophen (Percocet (5/ 325)) 1 tab Q6H PRN PO PAIN Last administered on 07/27/16 00:54; Admin Dose 1 TAB; Start 07/11/16 at 15:45 Pantoprazole (Protonix Tab) 40 mg DAILY@06 PO Last administered on 07/27/16 05 :50; Admin Dose 40 MG; Start 07/14/16 at 06:00 Simethicone (Mylicon) 80 mg BID PO Last administered on 07/27/16 08:57; Admin Dose 80 MG; Start 07/21/16 at 23:00 Hydromorphone HCl (Dilaudid) 0.5 mg Q4H PRN IV PAIN Last administered on 14:29; Admin Dose 0.5 MG; Start 07/25/16 at 17:00 JEB VAZQUEZ MD Jul 27, 2016 17:49
--- NOTE | 2016-07-27 17:50 | PDOCDIS ---
Discharge Instructions CONDITION Patient Condition: Stable HOME CARE INSTRUCTIONS: Special Diet: Low Cholesterol/fat ACTIVITY: Activity Restrictions: Slowly Increase Activity FOLLOW UP/APPOINTMENTS Appointments f/u own pcp [address] maddox [address] parra /dr martin 1 wk JEB VAZQUEZ MD Jul 27, 2016 17:50
[2016-07-27] MEDS ORDERED: Oxycodone/Acetamin (5/325) PO (17:53)
[2016-07-27] MEDS ORDERED: MYL80 PO (17:53)
[2016-07-27] MEDS ORDERED: LOSA25TA5 PO (17:53)
[2016-07-27] MEDS ORDERED: PANT40TA4 PO (17:53)
== END 2016-07-27 20:30 | disposition home health service (06) | DRG 919 ==
LOC: PP2 18:34
PROVIDERS: ADMIT Internal Medicine Nephrology; ATTEND Internal Medicine Nephrology
PROC: 0W9G30Z Drainage of Peritoneal Cavity with Drainage Device, Percutaneous Approach (ICD-10-PCS; 2016-07-10)
PROC: 0F798DZ Dilation of Common Bile Duct with Intraluminal Device, Via Natural or Artificial Opening Endoscopic (ICD-10-PCS; 2016-07-19)
PROC: BF101ZZ Fluoroscopy of Bile Ducts using Low Osmolar Contrast (ICD-10-PCS; 2016-07-19)
PROC: 0W9G30Z Drainage of Peritoneal Cavity with Drainage Device, Percutaneous Approach (ICD-10-PCS; principal; 2016-07-23)
PROC: 0W9G30Z Drainage of Peritoneal Cavity with Drainage Device, Percutaneous Approach (ICD-10-PCS; 2016-07-23)
DX: K91.872 Postprocedural seroma of a digestive system organ or structure following a digestive system procedure (principal); K85.10 Biliary acute pancreatitis without necrosis or infection; R18.8 Other ascites; Z68.41 Body mass index [BMI] 40.0-44.9, adult; R65.10 Systemic inflammatory response syndrome (SIRS) of non-infectious origin without acute organ dysfunction; T85.590A Other mechanical complication of bile duct prosthesis, initial encounter; E66.01 Morbid (severe) obesity due to excess calories; J44.9 Chronic obstructive pulmonary disease, unspecified; Y83.8 Other surgical procedures as the cause of abnormal reaction of the patient, or of later complication, without mention of misadventure at the time of the procedure; R11.2 Nausea with vomiting, unspecified; D64.9 Anemia, unspecified; Y83.2 Surgical operation with anastomosis, bypass or graft as the cause of abnormal reaction of the patient, or of later complication, without mention of misadventure at the time of the procedure; Z90.49 Acquired absence of other specified parts of digestive tract
CPT/HCPCS: 71010; 74000; 74176; 74181; 74330; 75989; 76080; 77012; 78226; 80048; 80053; 82150; 82962; 83036; 83690; 84703; 85025; 85610; 85730; 87070; 87075; 89050; A9537; C2617; C9113; J0330; J0696; J0743; J1100; J1170; J1200; J1815; J1885; J2250; J2405; J2710; J2765; J3010; J3480; J7040; J7042; J7120; Q9967

== ENCOUNTER 2016-08-06 18:46 | Inpatient (IN) | payer OTHER ==
[~2016-08-06] VITALS: Ht 162.6 cm; Wt 103.0 kg
[~2016-08-06 18:46] MED LIST changes: -ACET1TAB40 PO; -FLUC100T PO; -LEVO500T72 PO; +LOSA25TA5 PO; +MYL80 PO; +Oxycodone/Acetamin (5/325) PO
[2016-08-06] MEDS ORDERED: SOD CHLORIDE 0.9% 1,000 ML IV STA (19:55)
[2016-08-06] MEDS ORDERED: ONDANSETRON 4 MG INJ IV STA (19:55)
[2016-08-06] MEDS ORDERED: HYDROmorphONE 1 MG/ML SYG IV STA ×2 (19:55→23:50)
[2016-08-06 20:09] LABS: ADD SCAN DIFF NO
[2016-08-06 20:11] LABS: BASOPHIL # 0.1 10^3/ul (0.0-0.1); BASOPHILS % 0.7 % (0.0-2.0); EOSINOPHILS # 0.2 10^3/ul (0.0-0.5); EOSINOPHILS % 1.3 % (0.0-7.0); HEMATOCRIT 41.4 % (37.0-47.0); HEMOGLOBIN 13.4 g/dl (12.0-16.0); LYMPHOCYTES % 31.1 % (15.0-51.0); MEAN CORPUSCULAR HEMOGLOBIN 25.5 pg (29.0-33.0); MEAN CORPUSCULAR HGB CONC 32.4 g/dl (32.0-37.0); MEAN CORPUSCULAR VOLUME 78.7 fl (82.0-101.0); MEAN PLATELET VOLUME 8.8 fl (7.4-10.4); MONOCYTE # 0.7 10^3/ul (0.3-0.9); MONOCYTES % 5.3 % (0.0-11.0); NEUTROPHILS % 61.3 % (39.0-77.0); PLATELET COUNT 481 10^3/UL (140-415); RED BLOOD COUNT 5.26 10^6/ul (4.20-5.40); RED CELL DISTRIBUTION WIDTH 14.6 % (11.5-14.5)
[2016-08-06 20:28] LABS: ALBUMIN 4.7 g/dl (3.3-4.9)
[2016-08-06 20:29] LABS: POTASSIUM 3.6 mmol/L (3.5-5.1)
[2016-08-06 20:31] LABS: ALBUMIN/GLOBULIN RATIO 1.02; BILIRUBIN,INDIRECT 0.2 mg/dl (0-1.1); BILIRUBIN,TOTAL 0.2 mg/dl (0.2-1.3); CALCIUM 9.7 mg/dl (8.4-10.2); CREATININE 0.47 mg/dl (0.44-1.00); TOTAL PROTEIN 9.3 g/dl (6.1-8.1)
--- NOTE | 2016-08-06 20:58 | ERA ---
ER Documentation Chief Complaint Date/Time DATE: 08/06/16 TIME: 20:58 Chief Complaint sp tanvir w/ t tube drainage, c/o active vomiting and post op pain HPI 36-year-old female with a history of diabetes mellitus type 2 and anxiety, status post cholecystectomy complicated by postop biliary leak, biloma subsequent placement of drains presents to the ED complaining of a one-day history of severe, sharp and achy, nonradiating right upper quadrant pain with nausea and several episodes of nonbloody nonbilious emesis. Pain is unrelieved by oxycodone. Denies chest pain or palpitations. No shortness of breath or cough. No fevers or chills. ROS All systems reviewed and are negative except as per history of present illness. Medications Home Meds Active Scripts Pantoprazole* (Pantoprazole*) 40 Mg Tablet.dr, 40 MG PO DAILY@06 for 14 Days Prov:JEB VAZQUEZ MD 07/27/16 [Oxycodone/Acetamin (5/325)] 1 TAB TAB No Conflict Check, 1 TAB PO Q6H Y for PAIN for 10 Days Prov:JEB VAZQUEZ MD 07/27/16 Losartan Potassium* (Losartan Potassium*) 25 Mg Tablet, 25 MG PO DAILY@21 for 28 Days, TAB Prov:JEB VAZQUEZ MD 07/27/16 Reported Medications Alprazolam* (Xanax*) 2 Mg Tablet, 4 MG PO DAILY Y for ANXIETY, TAB 08/06/16 Ondansetron Hcl* (Ondansetron Hcl*) 4 Mg Tablet, 4 MG PO Q8H Y for NAUSEA AND OR VOMITING, TAB 08/06/16 Gabapentin* (Gabapentin*) 300 Mg Capsule, 300 MG PO Q6H, #90 CAP 08/06/16 Sertraline Hcl* (Sertraline Hcl*) 100 Mg Tablet, 100 MG PO DAILY, #30 TAB 04/28/16 Metformin* (Glucophage*) 1,000 Mg Tablet, 1000 MG PO BID, #60 TAB 04/28/16 Eszopiclone (Lunesta) 2 Mg Tab, 2 MG PO HS Y for INSOMNIA, TAB 04/28/16 Discontinued Reported Medications Alprazolam* (Alprazolam*) 1 Mg Tablet, 1 MG PO Q8H Y for ANXIETY, TAB 04/28/16 Discontinued Scripts Simethicone* (Mylicon*) 80 Mg Tab, 80 MG PO BID for 10 Days, TAB Prov:JEB VAZQUEZ MD 07/27/16 Mineral Oil (MINERAL OIL) 473 Ml Oil, 30 ML PO TID Y for CONSTIPATION for 28 Days Prov:JEB VAZQUEZ MD 05/12/16 Ferrous Sulfate* (Ferrous Sulfate*) 325 Mg Tabec, 325 MG PO TID for 28 Days, TAB Prov:JEB VAZQUEZ MD 05/12/16 Allergies Allergies: Coded Allergies: No Known Allergy (Unverified , 08/06/16) PMhx/Soc Reviewed History of Surgery: Yes (APPENDECTOMY, LAP CHOLY, R ANKLE, CBD stent 07/23/16) Anesthesia Reaction: No Hx Neurological Disorder: No Hx Respiratory Disorders: Yes (COPD, PNA) Hx Cardiac Disorders: Yes (HTN ) Hx Psychiatric Problems: Yes (ANXIETY, DEPRESSION ) Hx Miscellaneous Medical Probl: No Hx Substance Use: No Hx Tobacco Use: No Smoking Status: Never smoker FmHx Not relevant to presenting complaint Physical Exam Vitals Vital Signs Date Time Temp Pulse Resp B/P Pulse Ox O2 Delivery O2 Flow Rate FiO2 08/06/16 20:37 98.4 76 18 132/80 98 Room Air 08/06/16 18:53 98.3 117 20 173/88 97 Physical Exam Const: Alert, moderate to severe distress due to pain Head: Atraumatic Eyes: Normal Conjunctiva ENT: Normal External Ears, Nose and Mouth. Neck: Full range of motion. Nontender Resp: Clear to auscultation bilaterally Cardio: Regular rate and rhythm, no murmurs Abd: Soft, obese, moderate right upper quadrant tenderness. SARAVANAN drains in place without surrounding erythema or induration. No rebound or guarding. Skin: No petechiae or rashes Back: No midline or flank tenderness Ext: No cyanosis, or edema Neur: Awake and alert Psych: Patient appears anxious but not depressed. Result Diagram: 08/06/16200408/06/162004 Results 24 hrs Laboratory Tests Test 08/06/16 20:05 White Blood Count 13.010^3/ul Red Blood Count 5.2610^6/ul Hemoglobin 13.4g/dl Hematocrit 41.4% Mean Corpuscular Volume 78.7fl Mean Corpuscular Hemoglobin 25.5pg Mean Corpuscular Hemoglobin Concent 32.4g/dl Red Cell Distribution Width 14.6% Platelet Count 15272^3/UL Mean Platelet Volume 8.8fl Neutrophils % 61.3% Lymphocytes % 31.1% Monocytes % 5.3% Eosinophils % 1.3% Basophils % 0.7% Nucleated Red Blood Cells % 0.0/100WBC Neutrophils # 8.010^3/ul Lymphocytes # 4.010^3/ul Monocytes # 0.710^3/ul Eosinophils # 0.210^3/ul Basophils # 0.110^3/ul Nucleated Red Blood Cells # 0.010^3/ul Sodium Level 143mmol/L Potassium Level 3.6mmol/L Chloride Level 102mmol/L Carbon Dioxide Level 22mmol/L Anion Gap 23 Blood Urea Nitrogen 9mg/dl Creatinine 0.47mg/dl Glucose Level 118mg/dl Calcium Level 9.7mg/dl Total Bilirubin 0.2mg/dl Direct Bilirubin 0.00mg/dl Indirect Bilirubin 0.2mg/dl Aspartate Amino Transf (AST/SGOT) 22IU/L Alanine Aminotransferase (ALT/SGPT) 27IU/L Alkaline Phosphatase 101IU/L Total Protein 9.3g/dl Albumin 4.7g/dl Globulin 4.60g/dl Albumin/Globulin Ratio 1.02 Lipase 105U/L Current Medications Medications (Trade) Dose Ordered Sig/Belkys Route PRN Reason Start Time Stop Time Status Last Admin Dose Admin Sodium Chloride (NS) 1,000 ml @ 1,000 mls/hr Q1H STAT IV 08/06/16 19:55 08/06/16 20:54 DC 08/06/16 20:01 Hydromorphone HCl (Dilaudid) 1 mg ONCE STAT IV 08/06/16 19:55 08/06/16 19:57 DC 08/06/16 20:01 Ondansetron HCl (Zofran Inj) 4 mg ONCE STAT IV 08/06/16 19:55 08/06/16 19:57 DC 08/06/16 20:01 Procedures/MDM DOCUMENTS REVIEWED: ED nurse, prior ED, prior records MEDICAL DECISION MAKIN-year-old female with a history of diabetes mellitus type 2 and anxiety, status post cholecystectomy complicated by postop biliary leak, biloma subsequent placement of drains presents to the ED complaining of a one-day history of severe, sharp and achy, nonradiating right upper quadrant pain with nausea and several episodes of nonbloody nonbilious emesis. Drains in place. No pancreatitis or signs of ascending cholangitis. Patient required multiple doses of Dilaudid IV for pain control with Zofran for nausea and Ativan for anxiety. Mild leukocytosis and as per Dr. Dixon, Zosyn was given. Ultrasound completed. Patient be admitted to [facility] for further evaluation and management. Counseled patient regarding diagnosis, diagnostic results and plan for admission. CALLS/CONSULTS: Dr. Dixon, Recommends antibiotics for leukocytosis and referral of imaging. Request patient be to [facility] by Dr. Rodrigez. CALLS/CONSULTS: Dr Rodrigez agreed to admit the patient but Dr Vazquez is required to admit the patient and I subsequently informed Dr Jeff. CALLS/CONSULTS: Time 23:55, Dr. Vazquez. Recommends ultrasound prior to admission. PATIENT CARE TRANSITIONED: Time: 23:55, Dr. Vazquez. Departure Diagnosis: Primary Impression: Postoperative pain Additional Impressions: Diabetes mellitus type 2 in obese Hyperglycemia due to type 2 diabetes mellitus Qualified Code: E11.65 - Type 2 diabetes mellitus with hyperglycemia, without long-term current use of insulin Status post cholecystectomy Postoperative bile leak Biloma Condition: Stable JASE LOPEZ MD August 06, 2016 20:58 MEDICAL DECISION MAKIN-year-old female with a history of diabetes mellitus type 2 and anxiety, status post cholecystectomy complicated by postop biliary leak, biloma subsequent placement of drains presents to the ED complaining of a one-day history of severe, sharp and achy, nonradiating right upper quadrant pain with nausea and several episodes of nonbloody nonbilious emesis. Patient required multiple doses of Dilaudid IV for pain control with Zofran for nausea. Ativan was given for anxiety. Mild leukocytosis and as per Dr. Dixon, Zosyn was given. Patient be admitted to [facility] for further evaluation and management. Counseled patient regarding diagnosis, diagnostic results and plan for admission. CALLS/CONSULTS: Dr. Dixon, Recommends antibiotics for leukocytosis and referral of imaging. Request patient be to [facility] by Dr. Rodrigez. CALLS/CONSULTS: Dr Rodrigez agreed to admit the patient but Dr Vazquez is required to admit the patient and I subsequently informed Dr Jeff. CALLS/CONSULTS: Time 23:55, Dr. Vazquez. Recommends ultrasound prior to admission. PATIENT CARE TRANSITIONED: Time: 23:55, Dr. Vazquez. Departure Diagnosis: Primary Impression: Postoperative pain Additional Impressions: Diabetes mellitus type 2 in obese Hyperglycemia due to type 2 diabetes mellitus Qualified Code: E11.65 - Type 2 diabetes mellitus with hyperglycemia, without long-term current use of insulin Status post cholecystectomy Postoperative bile leak Biloma Condition: Stable JASE LOPEZ MD August 06, 2016 20:58
[2016-08-06] MEDS ORDERED: ACETAMINOPHEN 325 MG TAB PO PRN (21:00)
[2016-08-06] MEDS ORDERED: ONDANSETRON 4 MG INJ IV PRN (21:00)
[2016-08-06] MEDS ORDERED: LORAZEPAM 2 MG INJ IV ONE (21:00)
[2016-08-06] MEDS ORDERED: GABA300C16 PO (21:17)
[2016-08-06] MEDS ORDERED: ONDA4TAB95 PO (21:18)
[2016-08-06] MEDS ORDERED: ALPR2TAB PO (21:19)
[2016-08-06 22:23] VITALS: TEMP 98.9
[2016-08-07] MEDS ORDERED: PIPER-TAZO 3.375 GM IV (PMX) 100 ML IVPB ONE
[2016-08-07 00:49] VITALS: BP 127/65; RESP 18
[2016-08-07 00:50] VITALS: Ht 162.6 cm; Wt 103.0 kg
[2016-08-07] MEDS ORDERED: BISACODYL (EC) 5 MG TAB PO PRN (01:30)
[2016-08-07] MEDS: ZOLPIDEM 5 MG TAB PO PRN ×2 (01:53→23:57)
[2016-08-07] MEDS: CEFTRIAXONE 1 GM/50 ML (PMX) 50 ML IVPB SCH (01:53)
[2016-08-07] MEDS: DEXTROSE 5%-0.45% NACL 1,000 ML IV SCH (01:53)
--- NOTE | 2016-08-07 02:09 | RADRPT ---
PROCEDURE: Ultrasound of the abdomen. CLINICAL INDICATION: Right upper quadrant pain. TECHNIQUE: Sonographic images of the abdomen were performed. COMPARISON: No pertinent prior examinations were submitted for comparison. FINDINGS: Liver: The liver is diffusely increased in echogenicity and enlarged, measuring approximately 19.8 cm. The hepatic veins and portal veins are patent with appropriate directional flow. No intrahepatic ductal dilatation is seen. Gallbladder: Prior cholecystectomy is noted. The common duct measures 3.9 mm. Pancreas: There is limited evaluation of the pancreatic body and tail. The visualized portions of the pancreas are unremarkable. Kidneys: The right kidney measures 12 cm. There is normal corticomedullary differentiation. There is no evidence of renal calculus or hydronephrosis. IVC: The visualized portion of the inferior vena cava is unremarkable. Aorta: Normal in size. Free fluid: None. IMPRESSION: Hepatomegaly and hepatic steatosis. RPTAT: HIKT .Suhas Mckeon MD, MD Date Time Electronically viewed and signed by .Suhas Mckeon MD, MD on 08/07/2016 02:09 .T/
[2016-08-07] MEDS: morphine 2 MG INJ IV PRN ×3 (03:44→11:18)
[2016-08-07] MEDS: PANTOPRAZOLE 40 MG INJ IV SCH (05:25)
[2016-08-07 05:39] VITALS: BP 121/72; PULSE 80; RESP 18
[2016-08-07 08:43] VITALS: BP 109/57; RESP 18
[2016-08-07 09:32] LABS: ADD UMIC YES; URINE BILIRUBIN (Dip) NEGATIVE (NEGATIVE); URINE BLOOD (Dip) NEGATIVE (NEGATIVE); URINE COLOR LT. YELLOW (YELLOW); URINE GLUCOSE (Dip) NEGATIVE (NEGATIVE); URINE KETONES (Dip) NEGATIVE (NEGATIVE); URINE LEUKOCYTE ESTERASE (Dip) 1+ (NEGATIVE); URINE NITRITE (Dip) NEGATIVE (NEGATIVE); URINE TOTAL PROTEIN (Dip) NEGATIVE (NEGATIVE); URINE UROBILINOGEN (Dip) 0.2 E.U./dL (0.1-1.0)
[2016-08-07 09:53] LABS: BACTERIA,URINE FEW; URINE RBCS NONE SEEN /HPF (0)
[2016-08-07] MEDS: ONDANSETRON 4 MG INJ IV PRN ×3 (11:16→23:56)
[2016-08-07] MEDS: HYDROmorphONE 1 MG/ML SYG IV PRN ×3 (15:00→22:45)
[2016-08-07] MEDS: ALPRAZOLAM 0.25 MG TAB PO PRN (15:02)
--- NOTE | 2016-08-07 16:19 | QN ---
Documentation Comment [id number] JEB VAZQUEZ MD August 07, 2016 16:19
--- NOTE | 2016-08-07 16:36 | HP ---
DATE OF ADMISSION: 08/06/2016 HISTORY OF PRESENT ILLNESS: The patient is a 36-year-old female. She was admitted previously with a diagnosis of a history of cholecystectomy, status post systemic inflammatory response syndrome, a history of pneumonia, obesity, anemia and leukocytosis. The patient has a fluid collection in the right upper quadrant and underwent drainage by IR. The patient had 2 drains placed and the patient previously was seen by Dr. Georges, Dr. Iglesias and Dr. Byrne in consultation. The patient went home with a drainage catheter. She presented back with abdominal pain and some discharge from the drainage catheter by palpation. The drainage is less than before. PAST MEDICAL HISTORY: Cholecystectomy, postop fluid collection of the liver, biloma, status post ERCP and stent placement. The patient has leukocytosis, better. A history of pneumonia, a history of COPD, a history of obesity, a history of appendectomy. A history of pancreatitis, better. ALLERGY HISTORY: NEGATIVE. FAMILY HISTORY: Negative. SOCIAL HISTORY: Negative at this point. MEDICATION HISTORY: The patient is on: 1. Dilaudid. 2. Xanax. 3. Protonix. 4. Rocephin. 5. Bisacodyl. 6. Zofran. 7. Ambien. REVIEW OF SYSTEMS: HEENT: Unremarkable. RESPIRATORY: Unremarkable. CARDIOVASCULAR: Unremarkable. ABDOMEN: Complaining of right upper quadrant pain from the drainage catheter. EXTREMITIES: Unremarkable. CENTRAL NERVOUS SYSTEM: Unremarkable. PHYSICAL EXAMINATION: GENERAL: The patient is an overweight female, awake, alert. VITAL SIGNS: Stable. HEAD: Atraumatic, normocephalic. Pupils are equal, reactive to light. NECK: Supple. No JVD. LUNGS: Clear. CARDIOVASCULAR: S1, S2 are normal. ABDOMEN: Soft, obese. Bowel sounds present. No palpable mass. The patient has right upper quadrant 2 drainage catheters noted. EXTREMITIES: No cyanosis, clubbing, or edema. CENTRAL NERVOUS SYSTEM: The patient is awake and alert, with no focal deficits. LABORATORY DATA: WBC 13, hematocrit 41.4, sodium 142, potassium 3.6. Ultrasound of the abdomen shows hepatomegaly and hepatic steatosis. IMPRESSION: 1. Abdominal pain. 2. Patient has a history of cholecystectomy. 3. Postop biloma, status post drainage. 4. Status post . 5. Status post ERCP stent placement. 6. Status post diabetes mellitus with hypertension. PLAN: Continue pain medication, IV fluids, and antibiotic. Surgical consultation orders were done. Dictated By: JEB VAZQUEZ MD BS/NTS Conf#: [id number] DID#: [id number] MTDD
[2016-08-07] MEDS ORDERED: DEXTROSE 50% 50 ML SYRINGE IV PRN ×2 (17:00)
[2016-08-07] MEDS ORDERED: GLUCAGON 1 MG INJ IM PRN (17:00)
[2016-08-07] MEDS ORDERED: GLUCOSE GEL 15 GRAM TUBE BUCCAL PRN (17:00)
[2016-08-07] MEDS ORDERED: GLUCOSE GEL 15 GRAM TUBE PO PRN ×2 (17:00)
[2016-08-07] MEDS: GABAPENTIN 300 MG CAP PO SCH ×2 (17:50→22:30)
[2016-08-07] MEDS: metFORMIN 500 MG TAB PO SCH (17:51)
[2016-08-07 19:48] VITALS: BP 127/63; RESP 18
--- NOTE | 2016-08-07 22:57 | CONS ---
DATE OF ADMISSION: 08/06/2016 DATE OF CONSULTATION: 08/07/2016 TYPE OF CONSULTATION: Surgical. REQUESTING PHYSICIAN: Dr. Vazquez for Dr. Dixon' service. REASON FOR CONSULTATION: Right upper quadrant abdominal pain, nausea, and vomiting. Thank you, Dr. Vazquez, for consultation. HISTORY OF PRESENT ILLNESS: Actually, this patient is a very well known to us. She was here and has been admitted several times. She is status post laparoscopic cholecystectomy, which was complicated by fluid collection around the liver, and eventually was discharged. Later on, she was back and she was readmitted 07/08/2016 to this hospital, was evaluated, and was found that some fluid collection under the liver was present, so 2 pigtail drains was placed for the drainage. Also Dr. Blair, the GI colleague customer relations consultant, did an ERCP, and he found a leaking remnant of the cystic duct and he put a stent in the common bile duct. The patient eventually was discharged about 10 days ago on pain medication, [place]. Then, she comes back, this time was admitted. On 08/06 at 8 p.m., she came to the emergency room complaining of 1-day history of severe, sharp, and achy right upper quadrant abdominal pain with nausea and several episodes of nonbloody, nonbilious vomiting. The patient took oxycodone , but apparently it did not help, so came to the emergency room. She denies chest pain or palpitations. No shortness of breath or cough. No fever, no chills. PAST SURGICAL HISTORY: Appendectomy, laparoscopic cholecystectomy, which was done about 3 months ago, and the common bile duct stent, which was done about 3 weeks ago. REVIEW OF SYSTEMS: , history of chronic obstructive pulmonary disease. CARDIOVASCULAR: History of hypertension. PSYCHIATRIC: Problems and history of anxiety and depression. PHYSICAL EXAMINATION: GENERAL: The patient is awake, alert, oriented, does not appear to be in acute distress at this time. VITAL SIGNS: Temperature 97.8, heart rate 68, respiration 18, blood pressure 109/67, saturation 95% on room air. LABORATORY DATA: On admission yesterday: WBC 13,000 with 61% neutrophils. Hemoglobin 13.4, hematocrit 41.4. Chemistry was done last night at 8 p.m., shows sodium and potassium normal, BUN and creatinine are normal. Total protein is 9.3, albumin is 4.7, globulin is 4.60, which is elevated. Urine shows 1+ leukocyte esterase, otherwise unremarkable. HEAD AND NECK: Within normal limits. HEART: Regular rhythm. No murmur. LUNGS: Clear to auscultation. Maybe slightly decreased breathing sound on the right side. ABDOMEN: Soft. Two pigtail drains are in place. Right upper quadrant is tender on deep pressure, but there is no guarding. The pigtail drains are draining a slight amount of light brownish fluid compatible with bilious drainage. I flushed both pigtail drains. The lower one is not functioning anymore. The upper one drains when irrigated with saline. The nurse said total , since 5:00 or 6:00 in the morning, has drained about 5 to 10 mL from one of them. The other one has not drained anything. EXTREMITIES: Calf tenderness is negative. ASSESSMENT: This is a 36-year-old female, obese, who had a laparoscopic cholecystectomy about 3 months ago in this hospital, complicated by problems intraabdominally, namely a collection of the fluid around the liver and drop of the hemoglobin where a transfusion was given to the patient. Eventually, the patient stabilized. The patient was discharged, came back about once 4 weeks ago. Still there was fluid collection around the liver, which was loculated, at least 2 loculations. It was drained by radiology after putting pigtail drains. The patient felt better and eventually was discharged home, was scared to go home and flush the pigtails every day. According to the patient, they have been draining minimal amount gradually. Now today patient comes in complaining of severe right upper quadrant pain, which not responding the oxycodone which the patient has at home to take. So, was admitted, was found to have leukocytosis, but otherwise the rest of the blood test is normal. PLAN: Right now, the plan is to continue monitoring drainage of the pigtails, and if by proper flushing and control, if the drainage is minimal and then we are going to ask the radiology department to remove the pigtail drains and maybe do a CT scan to find out if there is a collection or not. In any case, the patient does not appear to be in acute distress at this time. We are going to start the patient on full liquid diet and I will check the other tests tomorrow with the radiology department. Dictated By: BRADLY UGALDE MD PS/NTS Conf#: [id number] DID#: [id number] CC: JEB VAZQUEZ MD;*EndCC* MTDD
[2016-08-08] MEDS: DEXTROSE 5%-0.45% NACL 1,000 ML IV SCH (01:30)
[2016-08-08] MEDS: HYDROmorphONE 1 MG/ML SYG IV PRN ×6 (02:31→21:59)
[2016-08-08] MEDS: CEFTRIAXONE 1 GM/50 ML (PMX) 50 ML IVPB SCH (02:32)
[2016-08-08] MEDS: GABAPENTIN 300 MG CAP PO SCH ×4 (04:30→22:30)
[2016-08-08 05:14] LABS: ADD SCAN DIFF NO
[2016-08-08 05:19] LABS: BASOPHIL # 0.1 10^3/ul (0.0-0.1); BASOPHILS % 0.7 % (0.0-2.0); EOSINOPHILS # 0.3 10^3/ul (0.0-0.5); EOSINOPHILS % 2.5 % (0.0-7.0); HEMOGLOBIN 12.1 g/dl (12.0-16.0); LYMPHOCYTES # 4.3 10^3/ul (0.8-2.9); LYMPHOCYTES % 35.6 % (15.0-51.0); MEAN CORPUSCULAR HEMOGLOBIN 25.5 pg (29.0-33.0); MEAN CORPUSCULAR HGB CONC 31.8 g/dl (32.0-37.0); MEAN CORPUSCULAR VOLUME 80.2 fl (82.0-101.0); MEAN PLATELET VOLUME 9.1 fl (7.4-10.4); MONOCYTE # 0.8 10^3/ul (0.3-0.9); MONOCYTES % 6.9 % (0.0-11.0); NEUTROPHIL # 6.6 10^3/ul (1.6-7.5); PLATELET COUNT 451 10^3/UL (140-415); RED BLOOD COUNT 4.74 10^6/ul (4.20-5.40); RED CELL DISTRIBUTION WIDTH 14.3 % (11.5-14.5); WHITE BLOOD COUNT 12.2 10^3/ul (4.8-10.8)
[2016-08-08] MEDS: PANTOPRAZOLE 40 MG INJ IV SCH (05:37)
[2016-08-08 05:41] LABS: ALBUMIN 3.9 g/dl (3.3-4.9)
[2016-08-08 05:42] LABS: POTASSIUM 3.6 mmol/L (3.5-5.1)
[2016-08-08 05:44] LABS: ALBUMIN/GLOBULIN RATIO 0.97; BILIRUBIN,INDIRECT 0.1 mg/dl (0-1.1); BILIRUBIN,TOTAL 0.1 mg/dl (0.2-1.3); CALCIUM 9.2 mg/dl (8.4-10.2); CREATININE 0.48 mg/dl (0.44-1.00); TOTAL PROTEIN 7.9 g/dl (6.1-8.1)
[2016-08-08] MEDS: ONDANSETRON 4 MG INJ IV PRN ×3 (05:52→19:43)
[2016-08-08 08:20] VITALS: BP 118/59; RESP 18
[2016-08-08] MEDS: SERTRALINE 100 MG TAB PO SCH (08:33)
[2016-08-08] MEDS: metFORMIN 500 MG TAB PO SCH ×2 (08:33→18:05)
[2016-08-08] MEDS: ALPRAZOLAM 0.25 MG TAB PO PRN ×2 (08:35→15:43)
[2016-08-08] MEDS: ENOXAPARIN 40 MG/0.4 ML SYG SC SCH (08:38)
[2016-08-08] MEDS ORDERED: POTASSIUM CHLORIDE (SR) 20 MEQ TAB PO STA (09:57)
--- NOTE | 2016-08-08 09:57 | CONS ---
Date/Time of Note Date/Time of Note DATE: 08/08/16 TIME: 09:55 Assessment/Plan Assessment/Plan Chief Complaint/Hosp Course 1. Abdominal pain. 2. Patient has a history of cholecystectomy. 3. Postop biloma, status post drainage. 4. Status post ERCP stent placement. 5. diabetes mellitus 6.Hypertension., controlled 7. Morbid obesity 8. Hypokalemia Problems: Additional Assessment/Plan 1. Plan per surgeon dr Georges 2. Ambulation 3. Potassium replacement Consultation Date/Type/Reason Admit Date/Time August 06, 2016 at 20:59 Initial Consult Date Exam/Review of Systems Vital Signs Vitals Vital Signs Date Time Temp Pulse Resp B/P Pulse Ox O2 Delivery O2 Flow Rate FiO2 08/08/16 08:20 98.4 70 18 118/59 95 08/07/16 05:39 Room Air Intake and Output 08/07/16 08/07/16 08/08/16 15:00 23:00 07:00 Intake Total 480 ml 850 ml Output Total 1220 ml 915 ml Balance -740 ml -65 ml Results Result Diagram: 08/08/16 0440 08/08/16 0440 Results 24 hrs Laboratory Tests Test 08/08/16 04:40 White Blood Count 12.2 H Red Blood Count 4.74 Hemoglobin 12.1 Hematocrit 38.0 Mean Corpuscular Volume 80.2 L Mean Corpuscular Hemoglobin 25.5 L Mean Corpuscular Hemoglobin Concent 31.8 L Red Cell Distribution Width 14.3 Platelet Count 451 H Mean Platelet Volume 9.1 Neutrophils % 54.0 Lymphocytes % 35.6 Monocytes % 6.9 Eosinophils % 2.5 Basophils % 0.7 Nucleated Red Blood Cells % 0.0 Neutrophils # 6.6 Lymphocytes # 4.3 H Monocytes # 0.8 Eosinophils # 0.3 Basophils # 0.1 Nucleated Red Blood Cells # 0.0 Sodium Level 141 Potassium Level 3.6 Chloride Level 102 Carbon Dioxide Level 27 Anion Gap 16 # Blood Urea Nitrogen 8 Creatinine 0.48 Glucose Level 99 Calcium Level 9.2 Total Bilirubin 0.1 L Direct Bilirubin 0.00 Indirect Bilirubin 0.1 Aspartate Amino Transf (AST/SGOT) 26 Alanine Aminotransferase (ALT/SGPT) 24 Alkaline Phosphatase 71 Total Protein 7.9 # Albumin 3.9 Globulin 4.00 H Albumin/Globulin Ratio 0.97 Medications Medications Current Medications Dextrose/Sodium Chloride (D5-1/2ns) 1,000 ml @ 40 mls/hr Q24H IV Last administered on 08/07/16 01:53; Admin Dose 40 MLS/HR; Start 08/07/16 at 01:30 Pantoprazole 40 mg 40 mg DAILY@06 IV Last administered on 08/08/16 05:37; Admin Dose 40 MG; Start 08/07/16 at 06:00 Ceftriaxone Sodium (Rocephin) 50 ml @ 100 mls/hr Q24H IVPB Last administered on 08/08/16 02:32; Admin Dose 100 MLS/HR; Start 08/07/16 at 02:00 Bisacodyl (Dulcolax) 5 mg BID PRN PO CONSTIPATION; Start 08/07/16 at 01:30 Ondansetron HCl (Zofran Inj) 4 mg Q4H PRN IV NAUSEA AND/OR VOMITING Last administered on 08/08/16 05:52; Admin Dose 4 MG; Start 08/07/16 at 01:30 Zolpidem Tartrate (Ambien) 5 mg HS PRN PO INSOMNIA Last administered on 23:57; Admin Dose 5 MG; Start 08/07/16 at 01:30 Hydromorphone HCl (Dilaudid) 0.5 mg Q4H PRN IV PAIN Last administered on 22:45; Admin Dose 0.5 MG; Start 08/07/16 at 13:30 Alprazolam (Xanax) 0.25 mg TID PRN PO ANXIETY Last administered on 08/08/16 08: 35; Admin Dose 0.25 MG; Start 08/07/16 at 13:30 Gabapentin (Neurontin) 300 mg Q6H PO Last administered on 08/07/16 17:50; Admin Dose 300 MG; Start 08/07/16 at 16:30 Sertraline HCl (Zoloft) 100 mg DAILY PO Last administered on 08/08/16 08:33; Admin Dose 100 MG; Start 08/08/16 at 09:00 Enoxaparin Sodium (Lovenox) 40 mg DAILY SC Last administered on 08/08/16 08:38 ; Admin Dose 40 MG; Start 08/08/16 at 09:00 Miscellaneous Information 1 ea NOTE XX ; Start 08/07/16 at 17:00 Glucose (Glutose) 15 gm Q15M PRN PO DECREASED GLUCOSE; Start 08/07/16 at 17:00 Glucose (Glutose) 22.5 gm Q15M PRN PO DECREASED GLUCOSE; Start 08/07/16 at 17:00 Dextrose (D50w Syringe) 25 ml Q15M PRN IV DECREASED GLUCOSE; Start 08/07/16 at 17:00 Dextrose (D50w Syringe) 50 ml Q15M PRN IV DECREASED GLUCOSE; Start 08/07/16 at 17:00 Glucagon (Glucagen) 1 mg Q15M PRN IM DECREASED GLUCOSE; Start 08/07/16 at 17:00 Glucose (Glutose) 15 gm Q15M PRN BUCCAL DECREASED GLUCOSE; Start 08/07/16 at 17: 00 Hydromorphone HCl (Dilaudid) 1 mg Q4H PRN IV severe pain Last administered on t 06:31; Admin Dose 1 MG; Start 08/08/16 at 02:30 DEVONTE LORD August 08, 2016 09:57
[2016-08-08 12:00] VITALS: BP 108/68; PULSE 74; RESP 18
[2016-08-08] MEDS ORDERED: SOD CHLORIDE 0.9% 100 ML ONE (14:58)
[2016-08-08] MEDS ORDERED: IOHEXOL 300MG/ML 150 ML BTL ONE (14:58)
--- NOTE | 2016-08-08 15:47 | RADRPT ---
PROCEDURE: CT Abdomen with contrast. CLINICAL INDICATION: Abdomen pain. The to drainage catheter is in the right upper quadrant fluid c ollection are not draining. Check position of drainage catheters. TECHNIQUE: CT scan of the abdomen with contrast was performed. The patient was scanned following t he uncomplicated intravenous administration of 100 cc of Omnipaque-300. Coronal and sagittal refor matted images were obtained from the axial source images. Images were reviewed on a high-resolution PACS workstation. Total exam DLP is 883.89 mGy-cm. CTDIvol is 23.11 mGy. One or more of the [facility] dose reduction techniques were used: Automated exposure control, adjustment of the mA and/or kV according to patient size, use of iterative reconstruction technique. COMPARISON: CT scan of the abdomen and pelvis dated 07/23/2016. FINDINGS: There is mild atelectasis at the lung bases posteriorly. The lung bases are otherwise normal. The heart size is normal. There is no pleural effusion or pericardial effusion. The liver is normal in size and attenuation. There is no focal hepatic lesion. The gallbladder is surgically absent with clips noted in the gallbladder bed. A stent is present in the common bile duct. There is a fluid collection in the right upper quadrant lateral to the right hepatic lobe inferiorly measuring 6.7 x 3.8 cm in AP and transverse dimensions. There are 2 pigtai l drainage catheter is in satisfactory position within the fluid collection. The spleen is normal in size. There is no focal splenic lesion. Both adrenals are normal with no enlargement or mass. The pancreas is unremarkable with no mass or evidence of pancreatitis. Both kidneys demonstrate normal contrast enhancement. There is no renal mass or hydronephrosis. The abdominal aorta is not dilated. There is no retroperitoneal lymphadenopathy or mass. The upper pelvis is unremarkable. The bowel and mesentery are normal. There is no free fluid or free gas. The osseous structures are unremarkable with no fracture or lytic lesion. IMPRESSION: 1. Status post cholecystectomy. 2. Stent in the common bile duct. 3. Fluid collection in the right upper quadrant is smaller than seen previously. The 2 drains in t he fluid collection are in satisfactory position. 4. Otherwise unremarkable study. RPTAT: QQ .Mao Saeed MD, Date Time Electronically viewed and signed by .Mao Saeed MD, on 08/08/2016 15:46 .R/
[2016-08-08 19:35] VITALS: BP 116/72; RESP 18
[2016-08-08] MEDS: ZOLPIDEM 5 MG TAB PO PRN (23:38)
[2016-08-09] MEDS: DEXTROSE 5%-0.45% NACL 1,000 ML IV SCH (01:30)
[2016-08-09] MEDS: CEFTRIAXONE 1 GM/50 ML (PMX) 50 ML IVPB SCH (02:05)
[2016-08-09] MEDS: HYDROmorphONE 1 MG/ML SYG IV PRN ×6 (02:05→22:02)
[2016-08-09] MEDS: ONDANSETRON 4 MG INJ IV PRN ×2 (03:03→13:03)
[2016-08-09] MEDS: GABAPENTIN 300 MG CAP PO SCH ×4 (04:30→22:30)
[2016-08-09 05:42] LABS: ADD SCAN DIFF NO
[2016-08-09 05:49] LABS: ABNORMAL IP MESSAGE 1; BASOPHIL # 0.1 10^3/ul (0.0-0.1); BASOPHILS % 0.6 % (0.0-2.0); EOSINOPHILS # 0.4 10^3/ul (0.0-0.5); EOSINOPHILS % 2.7 % (0.0-7.0); HEMATOCRIT 38.3 % (37.0-47.0); HEMOGLOBIN 12.1 g/dl (12.0-16.0); LYMPHOCYTES # 5.1 10^3/ul (0.8-2.9); LYMPHOCYTES % 38.4 % (15.0-51.0); MEAN CORPUSCULAR HEMOGLOBIN 25.3 pg (29.0-33.0); MEAN CORPUSCULAR HGB CONC 31.6 g/dl (32.0-37.0); MEAN PLATELET VOLUME 8.8 fl (7.4-10.4); MONOCYTE # 0.8 10^3/ul (0.3-0.9); MONOCYTES % 6.1 % (0.0-11.0); NEUTROPHIL # 6.8 10^3/ul (1.6-7.5); NEUTROPHILS % 51.9 % (39.0-77.0); PLATELET COUNT 434 10^3/UL (140-415); RED BLOOD COUNT 4.79 10^6/ul (4.20-5.40); RED CELL DISTRIBUTION WIDTH 14.3 % (11.5-14.5); WHITE BLOOD COUNT 13.2 10^3/ul (4.8-10.8)
[2016-08-09 06:06] LABS: POTASSIUM 3.6 mmol/L (3.5-5.1)
[2016-08-09 06:09] LABS: CREATININE 0.44 mg/dl (0.44-1.00)
[2016-08-09 06:10] LABS: CALCIUM 9.1 mg/dl (8.4-10.2)
[2016-08-09] MEDS: PANTOPRAZOLE 40 MG INJ IV SCH (06:14)
[2016-08-09 07:00] VITALS: BP 123/66; RESP 20
[2016-08-09] MEDS: ALPRAZOLAM 0.25 MG TAB PO PRN ×2 (07:51→19:57)
[2016-08-09] MEDS: metFORMIN 500 MG TAB PO SCH ×2 (08:48→17:50)
[2016-08-09] MEDS: SERTRALINE 100 MG TAB PO SCH (08:48)
[2016-08-09] MEDS: ENOXAPARIN 40 MG/0.4 ML SYG SC SCH (08:52)
--- NOTE | 2016-08-09 15:09 | CONS ---
Date/Time of Note Date/Time of Note DATE: 08/09/16 TIME: 15:07 Assessment/Plan Assessment/Plan Chief Complaint/Hosp Course 1. Abdominal pain. 2. Patient has a history of cholecystectomy. 3. Postop biloma, status post drainage. 4. Status post ERCP stent placement. 5. diabetes mellitus 6.Hypertension., controlled 7. Morbid obesity 8. Hypokalemia Problems: Additional Assessment/Plan 1. per dr Georges removal of drains and discharge planning Consultation Date/Type/Reason Admit Date/Time August 06, 2016 at 20:59 Initial Consult Date 08/06/[address] Lange 24 HR Interval Summary Constitutional: improved, no complaints Exam/Review of Systems Vital Signs Vitals Vital Signs Date Time Temp Pulse Resp B/P Pulse Ox O2 Delivery O2 Flow Rate FiO2 08/09/16 07:00 98.0 76 20 123/66 95 08/08/16 12:00 Room Air Intake and Output 08/08/16 08/08/16 08/09/16 15:00 23:00 07:00 Intake Total 1200 ml 750 ml Output Total 813 ml 15 ml Balance 387 ml 735 ml Exam Constitutional: alert, oriented Psych: no complaints Head: normocephalic Neck: supple Respiratory: clear to auscultation Cardiovascular: regular rate and rhythm Gastrointestinal: other (2 drains present), soft Genitourinary - Female: nl adnexae Results Result Diagram: 08/09/16 0519 08/09/16 0519 Results 24 hrs Laboratory Tests Test 08/09/16 05:19 White Blood Count 13.2 H Red Blood Count 4.79 Hemoglobin 12.1 Hematocrit 38.3 Mean Corpuscular Volume 80.0 L Mean Corpuscular Hemoglobin 25.3 L Mean Corpuscular Hemoglobin Concent 31.6 L Red Cell Distribution Width 14.3 Platelet Count 434 H Mean Platelet Volume 8.8 Neutrophils % 51.9 Lymphocytes % 38.4 Monocytes % 6.1 Eosinophils % 2.7 Basophils % 0.6 Nucleated Red Blood Cells % 0.0 Neutrophils # 6.8 Lymphocytes # 5.1 H Monocytes # 0.8 Eosinophils # 0.4 Basophils # 0.1 Nucleated Red Blood Cells # 0.0 Sodium Level 141 Potassium Level 3.6 Chloride Level 101 Carbon Dioxide Level 26 Anion Gap 18 H Blood Urea Nitrogen 8 Creatinine 0.44 Glucose Level 93 Hemoglobin A1c 5.4 Calcium Level 9.1 B-Type Natriuretic Peptide 94 Medications Medications Current Medications Dextrose/Sodium Chloride (D5-1/2ns) 1,000 ml @ 40 mls/hr Q24H IV Last administered on 08/07/16 01:53; Admin Dose 40 MLS/HR; Start 08/07/16 at 01:30 Pantoprazole 40 mg 40 mg DAILY@06 IV Last administered on 08/09/16 06:14; Admin Dose 40 MG; Start 08/07/16 at 06:00 Ceftriaxone Sodium (Rocephin) 50 ml @ 100 mls/hr Q24H IVPB Last administered on 08/09/16 02:05; Admin Dose 100 MLS/HR; Start 08/07/16 at 02:00 Bisacodyl (Dulcolax) 5 mg BID PRN PO CONSTIPATION; Start 08/07/16 at 01:30 Ondansetron HCl (Zofran Inj) 4 mg Q4H PRN IV NAUSEA AND/OR VOMITING Last administered on 08/09/16 13:03; Admin Dose 4 MG; Start 08/07/16 at 01:30 Zolpidem Tartrate (Ambien) 5 mg HS PRN PO INSOMNIA Last administered on 23:38; Admin Dose 5 MG; Start 08/07/16 at 01:30 Hydromorphone HCl (Dilaudid) 0.5 mg Q4H PRN IV PAIN Last administered on 22:45; Admin Dose 0.5 MG; Start 08/07/16 at 13:30 Alprazolam (Xanax) 0.25 mg TID PRN PO ANXIETY Last administered on 08/09/16 07: 51; Admin Dose 0.25 MG; Start 08/07/16 at 13:30 Gabapentin (Neurontin) 300 mg Q6H PO Last administered on 08/07/16 17:50; Admin Dose 300 MG; Start 08/07/16 at 16:30 Sertraline HCl (Zoloft) 100 mg DAILY PO Last administered on 08/09/16 08:48; Admin Dose 100 MG; Start 08/08/16 at 09:00 Enoxaparin Sodium (Lovenox) 40 mg DAILY SC Last administered on 08/09/16 08:52 ; Admin Dose 40 MG; Start 08/08/16 at 09:00 Miscellaneous Information 1 ea NOTE XX ; Start 08/07/16 at 17:00 Glucose (Glutose) 15 gm Q15M PRN PO DECREASED GLUCOSE; Start 08/07/16 at 17:00 Glucose (Glutose) 22.5 gm Q15M PRN PO DECREASED GLUCOSE; Start 08/07/16 at 17:00 Dextrose (D50w Syringe) 25 ml Q15M PRN IV DECREASED GLUCOSE; Start 08/07/16 at 17:00 Dextrose (D50w Syringe) 50 ml Q15M PRN IV DECREASED GLUCOSE; Start 08/07/16 at 17:00 Glucagon (Glucagen) 1 mg Q15M PRN IM DECREASED GLUCOSE; Start 08/07/16 at 17:00 Glucose (Glutose) 15 gm Q15M PRN BUCCAL DECREASED GLUCOSE; Start 08/07/16 at 17: 00 Hydromorphone HCl (Dilaudid) 1 mg Q4H PRN IV severe pain Last administered on 14:14; Admin Dose 1 MG; Start 08/08/16 at 02:30 DEVONTE LORD August 09, 2016 15:09
--- NOTE | 2016-08-09 15:35 | PN ---
DATE: 08/09/2016 SUBJECTIVE: States that she feels her appetite is better. No fever, no nausea, no vomiting, no maylin rrhea. States that the pain is under control with pain medication. OBJECTIVE: VITAL SIGNS: Temperature 98, pulse 76, respirations 20, blood pressure 123/66, saturation 95% room air. ABDOMEN: Soft and pigtail drains draining minimal amount of light brownish fluid consistent with b ile. Actual the drainage occurred on drain #1 was 20 mL in the past 24 hours and 8 mL in the past 2 0 hours from #2. LABORATORY DATA: WBC 13,200, 51% segmented. Hemoglobin 12.1, hematocrit 38.3. Chemistry: BUN and creatinine normal. Sodium and potassium normal. Yesterday, I discussed with the radiologist, Dr. Saeed, to evaluate the drains and the fluid collection. He did a CT scan and he reported as follows: There is a fluid collection in the right upper quadrant lateral to the right hepatic lobe inferior ly measuring 6.7 x 3.8 cm in AP and transverse dimensions. There are 2 pigtail drainage catheters i n satisfactory position within the fluid collection. The rest of it is in the computer. ASSESSMENT AND PLAN: The patient has collection of the fluid lateral to the right lobe of the live r which attempt has been by placing 2 pigtail drains to drain it. It has drained to some extent, bu t still there is a lot which is not draining completely. I am not sure exactly what is the nature o f this fluid collection. We have once and it was bile and the patient has also a stent in the common bile duct. The patient recently has developed leukocytosis and yesterday Dr. Saeed, radiolog ist, was skeptical to remove the drains because he thought that it is located in the cavity and the fluid is still there, so there was no reason to remove it. We are going to keep the patient on the same , continue current care with antibiotics, advance diet and discuss with the radiologist on Thursday to see what is the best plan of approach for this patient. Dictated By: BRADLY UGALDE MD PS/NTS Conf#: [id number] DID#: [id number]
[2016-08-09 16:00] VITALS: BP 116/74; PULSE 76; RESP 17
[2016-08-09 20:00] VITALS: BP 126/64; RESP 19
[2016-08-09] MEDS: ZOLPIDEM 5 MG TAB PO PRN (22:38)
[2016-08-10] MEDS: DEXTROSE 5%-0.45% NACL 1,000 ML IV SCH (01:30)
[2016-08-10] MEDS: HYDROmorphONE 1 MG/ML SYG IV PRN ×6 (02:05→22:25)
[2016-08-10] MEDS: CEFTRIAXONE 1 GM/50 ML (PMX) 50 ML IVPB SCH (02:05)
[2016-08-10] MEDS: GABAPENTIN 300 MG CAP PO SCH ×4 (04:30→22:25)
[2016-08-10] MEDS: PANTOPRAZOLE 40 MG INJ IV SCH (06:11)
[2016-08-10] MEDS: ONDANSETRON 4 MG INJ IV PRN ×3 (06:12→22:31)
[2016-08-10 07:44] VITALS: BP 101/63; RESP 19
[2016-08-10] MEDS: metFORMIN 500 MG TAB PO SCH ×2 (09:49→16:55)
[2016-08-10] MEDS: SERTRALINE 100 MG TAB PO SCH (09:49)
[2016-08-10] MEDS: ENOXAPARIN 40 MG/0.4 ML SYG SC SCH (09:50)
[2016-08-10] MEDS: ALPRAZOLAM 0.25 MG TAB PO PRN (14:13)
[2016-08-10] MEDS ORDERED: HYDROCODONE/APAP (5/325) TAB PO PRN (15:30)
[2016-08-10 16:10] LABS: ADD SCAN DIFF NO
[2016-08-10 16:15] LABS: BASOPHIL # 0.1 10^3/ul (0.0-0.1); BASOPHILS % 0.6 % (0.0-2.0); EOSINOPHILS # 0.3 10^3/ul (0.0-0.5); EOSINOPHILS % 2.6 % (0.0-7.0); HEMATOCRIT 39.7 % (37.0-47.0); HEMOGLOBIN 12.9 g/dl (12.0-16.0); LYMPHOCYTES # 4.1 10^3/ul (0.8-2.9); LYMPHOCYTES % 31.5 % (15.0-51.0); MEAN CORPUSCULAR HEMOGLOBIN 25.9 pg (29.0-33.0); MEAN CORPUSCULAR HGB CONC 32.5 g/dl (32.0-37.0); MEAN CORPUSCULAR VOLUME 79.6 fl (82.0-101.0); MEAN PLATELET VOLUME 8.9 fl (7.4-10.4); MONOCYTE # 0.8 10^3/ul (0.3-0.9); MONOCYTES % 5.8 % (0.0-11.0); NEUTROPHIL # 7.7 10^3/ul (1.6-7.5); NEUTROPHILS % 59.1 % (39.0-77.0); PLATELET COUNT 486 10^3/UL (140-415); RED BLOOD COUNT 4.99 10^6/ul (4.20-5.40)
--- NOTE | 2016-08-10 17:59 | PN ---
DATE: SUBJECTIVE: Continues to have pain, especially from the lower pigtail drain catheter. She has tole rated diet and having bowel movement. OBJECTIVE: VITAL SIGNS: Temperature 98, heart rate 81, 19 respirations, blood pressure 101/63, saturation 98% room air. ABDOMEN: Soft. LABORATORY DATA: No lab data done today. DRAINAGE: The #2 pigtail, which is lower one has drained 0 since past 12 hours. The other one has d rained 18 mL. PLAN: Since one of the drains is not draining at all, I am going to remove it. (I actually did kylah ve it). We will watch for the other drain, how much is draining. I know that CT scan revealed that there is a fluid collection and the catheter was not inside the fluid collection cavity, but for so me reason one of them did not drain anything in the past 2-3 days and the other one is draining mini mal, so we will see what happens by tomorrow and then make further decision. Dictated By: BRADLY CORTES/ARGELIA Conf#: [id number] DID#: [id number]
--- NOTE | 2016-08-10 18:35 | PN ---
Date/Time of Note Date/Time of Note DATE: 08/10/16 TIME: 18:34 Assessment/Plan VTE Prophylaxis VTE Prophylaxis Intervention: other Lines/Catheters IV Catheter Type (from [facility]): Saline Lock Urinary Cath still in place: No Assessment/Plan Chief Complaint/Hosp Course HX BILLOMA S.P ERCP AND STENT POST OP FLUID COLLECTION LEUCOCYTOISI PLAN PER SURGERY Problems: Subjective 24 Hr Interval Summary Gastrointestinal: no complaints Genitourinary: no complaints Exam/Review of Systems Vital Signs Vitals Vital Signs Date Time Temp Pulse Resp B/P Pulse Ox O2 Delivery O2 Flow Rate FiO2 08/10/16 07:44 98.0 81 19 101/63 98 08/09/16 16:00 Room Air Intake and Output 08/09/16 08/09/16 08/10/16 15:00 23:00 07:00 Intake Total 1200 ml 50 ml Output Total 11 ml 10 ml Balance 1189 ml 40 ml Exam Respiratory: clear to auscultation Cardiovascular: regular rate and rhythm Gastrointestinal: bowel sounds (+), soft Extremities: No edema Results Result Diagram: 08/10/16 1605 08/09/16 0519 Results 24 hrs Laboratory Tests Test 08/10/16 16:05 White Blood Count 13.0 H Red Blood Count 4.99 Hemoglobin 12.9 Hematocrit 39.7 Mean Corpuscular Volume 79.6 L Mean Corpuscular Hemoglobin 25.9 L Mean Corpuscular Hemoglobin Concent 32.5 Red Cell Distribution Width 14.0 Platelet Count 486 H Mean Platelet Volume 8.9 Neutrophils % 59.1 Lymphocytes % 31.5 Monocytes % 5.8 Eosinophils % 2.6 Basophils % 0.6 Nucleated Red Blood Cells % 0.0 Neutrophils # 7.7 H Lymphocytes # 4.1 H Monocytes # 0.8 Eosinophils # 0.3 Basophils # 0.1 Nucleated Red Blood Cells # 0.0 Medications Medications Current Medications Dextrose/Sodium Chloride (D5-1/2ns) 1,000 ml @ 40 mls/hr Q24H IV Last administered on 08/07/16 01:53; Admin Dose 40 MLS/HR; Start 08/07/16 at 01:30 Pantoprazole 40 mg 40 mg DAILY@06 IV Last administered on 08/10/16 06:11; Admin Dose 40 MG; Start 08/07/16 at 06:00 Ceftriaxone Sodium (Rocephin) 50 ml @ 100 mls/hr Q24H IVPB Last administered on 08/10/16 02:05; Admin Dose 100 MLS/HR; Start 08/07/16 at 02:00 Bisacodyl (Dulcolax) 5 mg BID PRN PO CONSTIPATION; Start 08/07/16 at 01:30 Ondansetron HCl (Zofran Inj) 4 mg Q4H PRN IV NAUSEA AND/OR VOMITING Last administered on 08/10/16 18:22; Admin Dose 4 MG; Start 08/07/16 at 01:30 Zolpidem Tartrate (Ambien) 5 mg HS PRN PO INSOMNIA Last administered on 22:38; Admin Dose 5 MG; Start 08/07/16 at 01:30 Hydromorphone HCl (Dilaudid) 0.5 mg Q4H PRN IV PAIN Last administered on 18:22; Admin Dose 0.5 MG; Start 08/07/16 at 13:30 Alprazolam (Xanax) 0.25 mg TID PRN PO ANXIETY Last administered on 08/10/16 14: 13; Admin Dose 0.25 MG; Start 08/07/16 at 13:30 Gabapentin (Neurontin) 300 mg Q6H PO Last administered on 08/10/16 16:55; Admin Dose 300 MG; Start 08/07/16 at 16:30 Sertraline HCl (Zoloft) 100 mg DAILY PO Last administered on 08/10/16 09:49; Admin Dose 100 MG; Start 08/08/16 at 09:00 Enoxaparin Sodium (Lovenox) 40 mg DAILY SC Last administered on 08/10/16 09:50 ; Admin Dose 40 MG; Start 08/08/16 at 09:00 Miscellaneous Information 1 ea NOTE XX ; Start 08/07/16 at 17:00 Glucose (Glutose) 15 gm Q15M PRN PO DECREASED GLUCOSE; Start 08/07/16 at 17:00 Glucose (Glutose) 22.5 gm Q15M PRN PO DECREASED GLUCOSE; Start 08/07/16 at 17:00 Dextrose (D50w Syringe) 25 ml Q15M PRN IV DECREASED GLUCOSE; Start 08/07/16 at 17:00 Dextrose (D50w Syringe) 50 ml Q15M PRN IV DECREASED GLUCOSE; Start 08/07/16 at 17:00 Glucagon (Glucagen) 1 mg Q15M PRN IM DECREASED GLUCOSE; Start 08/07/16 at 17:00 Glucose (Glutose) 15 gm Q15M PRN BUCCAL DECREASED GLUCOSE; Start 08/07/16 at 17: 00 Acetaminophen/ Hydrocodone Bitart ([place] (5/325)) 1 tab Q4H PRN PO PAIN; Start 08/10/16 at 15:30 JEB VAZQUEZ MD August 10, 2016 18:35
[2016-08-10 19:41] VITALS: BP 118/57; RESP 16
[2016-08-10] MEDS: ZOLPIDEM 5 MG TAB PO PRN (22:55)
[2016-08-11] MEDS ORDERED: HYDROmorphONE 1 MG/ML SYG IV PRN (01:30)
[2016-08-11] MEDS: DEXTROSE 5%-0.45% NACL 1,000 ML IV SCH (01:30)
[2016-08-11] MEDS: CEFTRIAXONE 1 GM/50 ML (PMX) 50 ML IVPB SCH (02:18)
[2016-08-11] MEDS: ONDANSETRON 4 MG INJ IV PRN ×6 (02:18→22:26)
[2016-08-11] MEDS: HYDROmorphONE 1 MG/ML SYG IV PRN ×6 (02:19→22:26)
[2016-08-11] MEDS: GABAPENTIN 300 MG CAP PO SCH ×5 (04:30→22:26)
[2016-08-11] MEDS: PANTOPRAZOLE 40 MG INJ IV SCH (06:19)
[2016-08-11] MEDS: ALPRAZOLAM 0.25 MG TAB PO PRN ×2 (06:54→15:33)
[2016-08-11 07:32] VITALS: BP 115/65; RESP 18
[2016-08-11] MEDS: SERTRALINE 100 MG TAB PO SCH (08:58)
[2016-08-11] MEDS: metFORMIN 500 MG TAB PO SCH ×2 (08:58→17:58)
--- NOTE | 2016-08-11 08:59 | PN ---
DATE: 08/08/2016 SUBJECTIVE: Still complaining of right upper quadrant abdominal pain requiring pain medication and that is about it. OBJECTIVE: GENERAL: Alert, awake, oriented, in no acute distress. VITAL SIGNS: Temperature 98.4, heart rate 70, respirations 18, blood pressure 118/57, saturation 95 % on room air. ABDOMEN: The pigtail drain #1 has drained 25 mL in the past 24 hours, and #2 has drained 10 mL in the past 24 hours. It is light brownish clear fluid, it is compatible with the collection consi stent with bile. Other parts of the abdomen are soft. EXTREMITIES: Negative calf tenderness. LABORATORY DATA: WBC is high at 12,200 with 54% neutrophils. Hemoglobin 12.1, hematocrit 38. Yest erday it was 13.4 and hematocrit 41.4. Chemistry: Sodium, potassium, BUN, creatinine normal. Tota l bilirubin 0.1. Globulin 4. Albumin 3.9. ASSESSMENT: The patient currently at this time still complaining of right upper quadrant abdominal pain, it is sharp, acute onset. The patient has two pigtail drains which were placed by radiology i n 2 loculated collections on the right lobe of the liver. It is not draining that much, 10 mL and _ ____15 mL per 24 hours. This is than usually when it gets this point, we remove the pigtails, but considering the patient has leukocytosis and also acute onset of pain, I discussed with Dr. Raul frey, the radiologist, he agrees that we should get another CT scan to make sure that the catheter tip has not been displaced somewhere else and also make sure of how much drainage has been done and if t here is any need for any more drainage or not. Then, after seeing that it, he will make a decision to remove the pigtails or not. I ordered a stat CT scan with IV contrast. Dictated By: BRADLY CORTES/ARGELIA Conf#: [id number] DID#: [id number]
[2016-08-11] MEDS: ENOXAPARIN 40 MG/0.4 ML SYG SC SCH (09:02)
[2016-08-11 09:24] LABS: ADD SCAN DIFF NO
[2016-08-11 09:33] LABS: BASOPHIL # 0.1 10^3/ul (0.0-0.1); BASOPHILS % 0.5 % (0.0-2.0); EOSINOPHILS # 0.3 10^3/ul (0.0-0.5); EOSINOPHILS % 2.9 % (0.0-7.0); HEMATOCRIT 38.5 % (37.0-47.0); HEMOGLOBIN 12.3 g/dl (12.0-16.0); LYMPHOCYTES # 4.1 10^3/ul (0.8-2.9); LYMPHOCYTES % 34.5 % (15.0-51.0); MEAN CORPUSCULAR HEMOGLOBIN 25.5 pg (29.0-33.0); MEAN CORPUSCULAR HGB CONC 31.9 g/dl (32.0-37.0); MEAN CORPUSCULAR VOLUME 79.7 fl (82.0-101.0); MEAN PLATELET VOLUME 8.9 fl (7.4-10.4); MONOCYTE # 0.7 10^3/ul (0.3-0.9); MONOCYTES % 5.5 % (0.0-11.0); NEUTROPHIL # 6.6 10^3/ul (1.6-7.5); NEUTROPHILS % 56.2 % (39.0-77.0); PLATELET COUNT 449 10^3/UL (140-415); RED BLOOD COUNT 4.83 10^6/ul (4.20-5.40); RED CELL DISTRIBUTION WIDTH 13.9 % (11.5-14.5); WHITE BLOOD COUNT 11.8 10^3/ul (4.8-10.8)
[2016-08-11] MEDS: HYDROCODONE/APAP (10/325) TAB PO PRN ×2 (16:31→20:27)
--- NOTE | 2016-08-11 18:11 | PN ---
DATE: 08/11/2016 SUBJECTIVE: Not much change. Still has pain in the right upper quadrant and, for that matter, requires pain medication _. No nausea, no vomiting. Tolerated p.o. and having bowel movement. OBJECTIVE: VITAL SIGNS: Temperature 99. Pulse is 70, respirations 18, blood pressure 115/ 65, saturation 96% on room air. LABORATORY DATA: WBC today down to 11,800 with 56% neutrophils, hemoglobin 12.3 , hematocrit 38.5. The pigtail drain, one of them was removed yesterday because it was not draining. The second one has drained only 10 mL in the past 12 hours and that is a fluid that they used for irrigation. The color is serosanguineous. So it appears we do not have a choice except to remove this one as well, even though CT scan, the last one, shows presence of fluid collection, but appears that even though the tip of this pigtail is in the cavity of the so called collection of fluid, but is not draining; therefore, I am going to remove it. I discussed with the patient and explained that if it is needed in future, they may have to put another one. She also agrees. She wants it to be removed and I am going to remove it now (in a couple of minutes I actually removed the tube) . ABDOMEN: Soft. PLAN: If the patient tolerates removal of the tube and nothing happens, vital signs do not change by tomorrow and tolerates diet and leukocyte esterase is stable or lower than what it is now, we may be able to discharge the patient tomorrow, on Thursday. Dictated By: BRADLY UGALDE MD PS/ARGELIA Conf#: [id number] DID#: [id number] CC: JEB VAZQUEZ MD;*EndCC* MTDD
[2016-08-11 19:40] VITALS: BP 110/55; RESP 20
[2016-08-11] MEDS: ZOLPIDEM 5 MG TAB PO PRN (22:56)
--- NOTE | 2016-08-11 23:25 | PN ---
Date/Time of Note Date/Time of Note DATE: 08/11/16 TIME: 23:24 Assessment/Plan VTE Prophylaxis VTE Prophylaxis Intervention: other Lines/Catheters IV [facility]from [facility] Saline Lock Urinary Cath still in place: No Assessment/Plan Chief Complaint/Hosp Course HX BILLOMA S.P ERCP AND STENT POST OP FLUID COLLECTION LEUCOCYTOISI PLAN PER SURGERY dc cath hoe soon Problems: Subjective 24 Hr Interval Summary Gastrointestinal: no complaints Genitourinary: no complaints Exam/Review of Systems Vital Signs Vitals Vital Signs Date Time Temp Pulse Resp B/P Pulse Ox O2 Delivery O2 Flow Rate FiO2 08/11/16 19:40 98.5 65 20 110/55 96 08/09/16 16:00 Room Air Intake and Output 08/10/16 08/10/16 08/11/16 15:00 23:00 07:00 Intake Total 820 ml 1410 ml Output Total 5 ml Balance 815 ml 1410 ml Exam Respiratory: clear to auscultation Cardiovascular: regular rate and rhythm Gastrointestinal: bowel sounds (+), soft Results Result Diagram: 08/11/16 0915 08/09/16 0519 Results 24 hrs Laboratory Tests Test 08/11/16 09:15 White Blood Count 11.8 H Red Blood Count 4.83 Hemoglobin 12.3 Hematocrit 38.5 Mean Corpuscular Volume 79.7 L Mean Corpuscular Hemoglobin 25.5 L Mean Corpuscular Hemoglobin Concent 31.9 L Red Cell Distribution Width 13.9 Platelet Count 449 H Mean Platelet Volume 8.9 Neutrophils % 56.2 Lymphocytes % 34.5 Monocytes % 5.5 Eosinophils % 2.9 Basophils % 0.5 Nucleated Red Blood Cells % 0.0 Neutrophils # 6.6 Lymphocytes # 4.1 H Monocytes # 0.7 Eosinophils # 0.3 Basophils # 0.1 Nucleated Red Blood Cells # 0.0 Medications Medications Current Medications Dextrose/Sodium Chloride (D5-1/2ns) 1,000 ml @ 40 mls/hr Q24H IV Last administered on 08/07/16 01:53; Admin Dose 40 MLS/HR; Start 08/07/16 at 01:30 Pantoprazole 40 mg 40 mg DAILY@06 IV Last administered on 08/11/16 06:19; Admin Dose 40 MG; Start 08/07/16 at 06:00 Ceftriaxone Sodium (Rocephin) 50 ml @ 100 mls/hr Q24H IVPB Last administered on 08/11/16 02:18; Admin Dose 100 MLS/HR; Start 08/07/16 at 02:00 Bisacodyl (Dulcolax) 5 mg BID PRN PO CONSTIPATION; Start 08/07/16 at 01:30 Ondansetron HCl (Zofran Inj) 4 mg Q4H PRN IV NAUSEA AND/OR VOMITING Last administered on 08/11/16 22:26; Admin Dose 4 MG; Start 08/07/16 at 01:30 Zolpidem Tartrate (Ambien) 5 mg HS PRN PO INSOMNIA Last administered on 22:56; Admin Dose 5 MG; Start 08/07/16 at 01:30 Alprazolam (Xanax) 0.25 mg TID PRN PO ANXIETY Last administered on 08/11/16 15: 33; Admin Dose 0.25 MG; Start 08/07/16 at 13:30 Gabapentin (Neurontin) 300 mg Q6H PO Last administered on 08/11/16 22:26; Admin Dose 300 MG; Start 08/07/16 at 16:30 Sertraline HCl (Zoloft) 100 mg DAILY PO Last administered on 08/11/16 08:58; Admin Dose 100 MG; Start 08/08/16 at 09:00 Enoxaparin Sodium (Lovenox) 40 mg DAILY SC Last administered on 08/11/16 09:02 ; Admin Dose 40 MG; Start 08/08/16 at 09:00 Miscellaneous Information 1 ea NOTE XX ; Start 08/07/16 at 17:00 Glucose (Glutose) 15 gm Q15M PRN PO DECREASED GLUCOSE; Start 08/07/16 at 17:00 Glucose (Glutose) 22.5 gm Q15M PRN PO DECREASED GLUCOSE; Start 08/07/16 at 17:00 Dextrose (D50w Syringe) 25 ml Q15M PRN IV DECREASED GLUCOSE; Start 08/07/16 at 17:00 Dextrose (D50w Syringe) 50 ml Q15M PRN IV DECREASED GLUCOSE; Start 08/07/16 at 17:00 Glucagon (Glucagen) 1 mg Q15M PRN IM DECREASED GLUCOSE; Start 08/07/16 at 17:00 Glucose (Glutose) 15 gm Q15M PRN BUCCAL DECREASED GLUCOSE; Start 08/07/16 at 17: 00 Hydromorphone HCl (Dilaudid) 0.5 mg Q4H PRN IV PAIN Last administered on 22:26; Admin Dose 0.5 MG; Start 08/11/16 at 11:30 Acetaminophen/ Hydrocodone Bitart ([place] (10/325)) 1 tab Q4H PRN PO PAIN Last administered on 08/11/16 20:27; Admin Dose 1 TAB; Start 08/11/16 at 11:30 JEB VAZQUEZ MD August 11, 2016 23:25
[2016-08-12] MEDS: HYDROCODONE/APAP (10/325) TAB PO PRN ×5 (00:31→18:02)
[2016-08-12] MEDS: DEXTROSE 5%-0.45% NACL 1,000 ML IV SCH (01:30)
[2016-08-12] MEDS: ONDANSETRON 4 MG INJ IV PRN ×4 (02:23→16:00)
[2016-08-12] MEDS: CEFTRIAXONE 1 GM/50 ML (PMX) 50 ML IVPB SCH (02:23)
[2016-08-12] MEDS: HYDROmorphONE 1 MG/ML SYG IV PRN ×3 (02:24→16:03)
[2016-08-12] MEDS: GABAPENTIN 300 MG CAP PO SCH ×3 (04:30→16:01)
[2016-08-12] MEDS: PANTOPRAZOLE 40 MG INJ IV SCH (05:19)
[2016-08-12 05:21] LABS: ADD SCAN DIFF NO
[2016-08-12 05:30] LABS: ABNORMAL IP MESSAGE 1; BASOPHIL # 0.1 10^3/ul (0.0-0.1); BASOPHILS % 0.7 % (0.0-2.0); EOSINOPHILS # 0.4 10^3/ul (0.0-0.5); EOSINOPHILS % 3.1 % (0.0-7.0); HEMATOCRIT 38.2 % (37.0-47.0); HEMOGLOBIN 12.1 g/dl (12.0-16.0); LYMPHOCYTES # 5.3 10^3/ul (0.8-2.9); LYMPHOCYTES % 43.5 % (15.0-51.0); MEAN CORPUSCULAR HEMOGLOBIN 25.6 pg (29.0-33.0); MEAN CORPUSCULAR HGB CONC 31.7 g/dl (32.0-37.0); MEAN CORPUSCULAR VOLUME 80.8 fl (82.0-101.0); MEAN PLATELET VOLUME 9.1 fl (7.4-10.4); MONOCYTE # 0.8 10^3/ul (0.3-0.9); NEUTROPHIL # 5.5 10^3/ul (1.6-7.5); NEUTROPHILS % 45.4 % (39.0-77.0); PLATELET COUNT 420 10^3/UL (140-415); RED BLOOD COUNT 4.73 10^6/ul (4.20-5.40); RED CELL DISTRIBUTION WIDTH 14.2 % (11.5-14.5); WHITE BLOOD COUNT 12.1 10^3/ul (4.8-10.8)
[2016-08-12 05:38] LABS: ALBUMIN 3.8 g/dl (3.3-4.9); BILIRUBIN,INDIRECT 0.1 mg/dl (0-1.1); BILIRUBIN,TOTAL 0.1 mg/dl (0.2-1.3); CALCIUM 9.1 mg/dl (8.4-10.2); CREATININE 0.54 mg/dl (0.44-1.00); TOTAL PROTEIN 7.6 g/dl (6.1-8.1)
[2016-08-12 08:01] VITALS: BP 105/57; RESP 17
[2016-08-12] MEDS: SERTRALINE 100 MG TAB PO SCH (08:37)
[2016-08-12] MEDS: metFORMIN 500 MG TAB PO SCH ×2 (08:37→17:10)
[2016-08-12] MEDS: ENOXAPARIN 40 MG/0.4 ML SYG SC SCH (08:38)
[2016-08-12] MEDS: ALPRAZOLAM 0.25 MG TAB PO PRN (13:18)
--- NOTE | 2016-08-12 18:35 | PDOCDIS ---
Discharge Instructions CONDITION Patient Condition: Stable FOLLOW UP/APPOINTMENTS Appointments f/u own pcp [address] parra [address] maddox 2 wks JEB VAZQUEZ MD August 12, 2016 18:35
[2016-08-12] MEDS ORDERED: PANT40TA3 PO (18:37)
--- NOTE | 2016-08-12 18:48 | PN ---
DATE: 08/12/2016 SUBJECTIVE: She states she feels better, pain is mild to moderate, and she wants to go home. She has tolerated diet. No nausea, no vomiting, no fever. Both pigtail drains have been removed, one yesterday and the other the day before. OBJECTIVE: VITAL SIGNS: Temperature 98.7, 66, 17, 105/57 blood pressure, saturation 95% on room air. LABORATORIES: WBC 12,100 with 25% neutrophils. Hemoglobin 12.1, hematocrit 38.2. Chemistry: Total bilirubin 0.1. AST, ALT and alkaline phosphatase normal. ABDOMEN: Soft. Dressing intact and wound clean. ASSESSMENT: The patient is a 36-year-old status post laparoscopic cholecystectomy about 3 months ago presented this time with a collection of the fluid around the liver. Two pigtail drains were placed by radiology to drain for a while and the color appeared bilious brownish, but gradually changed to serosanguineous and gradually minimal drainage was there. We got a CT scan that did show that even though the tip of the catheter is in the collection cavity , there was a moderate amount of fluid collection left there. I was not sure about the significance of this fluid, and what is the kind of fluid that is not draining while the drainage catheter is there. So eventually, since there was no draining, we decided to remove the drains. They were removed. The patient has remained stable. PLAN: The patient is going to be discharged home today. Follow up with Dr. Coleman in his office. Dictated By: BRADLY UGALDE MD PS/NTS Conf#: [id number] DID#: [id number] CC: KATIE COLEMAN MD;*EndCC* MTDD
--- NOTE | 2016-08-14 13:46 | QN ---
Documentation Comment [id number] JEB VAZQUEZ MD August 14, 2016 13:46
--- NOTE | 2016-08-14 14:13 | DS ---
DATE OF ADMISSION: 08/06/2016 DATE OF DISCHARGE: 08/12/2016 HOSPITAL COURSE: The patient is a 36-year-old female who was admitted with abdominal pain. The patient was noted to have a drainage catheter in the right upper quadrant. Ultrasound of the abdomen was done and shows hepatomegaly and hepatic steatosis. The patient had an abdominal CT scan done that shows the patient is status post cholecystectomy, stent and , fluid collection in the right upper quadrant, otherwise an unremarkable study. The patient was given pain medicine, IV fluid, and an antibiotic. Cultures came back negative and the patient's drain was removed. The patient was stable to be discharged home. DISCHARGE DIAGNOSES: Includes: 1. Patient has a history of biloma. 2. Status post ERCP stent placement. 3. Postop fluid collection. 4. Leukocytosis. 5. Obesity. 6. The patient has dyslipidemia. 7. Anemia. DISCHARGE MEDICATIONS: Patient to continue on: 1. Protonix. 2. Lunesta. 3. Gabapentin. 4. Losartan. 5. Metformin. 6. Zofran. 7. Protonix. 8. Zoloft. The patient to follow up with her PCP and Dr. Dixon as an outpatient. The patient is stable at the time of discharge. Dictated By: JEB VAZQUEZ MD BS/ARGELIA Conf#: [id number] DID#: [id number] MTDD
== END 2016-08-12 19:10 | disposition home or self-care (01) | DRG 921 ==
LOC: E/R 18:46 → MS1 20:59
PROVIDERS: ADMIT Internal Medicine Nephrology; ATTEND Internal Medicine
DX: K91.872 Postprocedural seroma of a digestive system organ or structure following a digestive system procedure (principal); I10 Essential (primary) hypertension; E66.01 Morbid (severe) obesity due to excess calories; J44.9 Chronic obstructive pulmonary disease, unspecified; E11.9 Type 2 diabetes mellitus without complications; D64.9 Anemia, unspecified; E78.5 Hyperlipidemia, unspecified; F41.9 Anxiety disorder, unspecified; E87.6 Hypokalemia; D72.829 Elevated white blood cell count, unspecified; Z68.39 Body mass index [BMI] 39.0-39.9, adult; Z90.49 Acquired absence of other specified parts of digestive tract; Z79.84 Long term (current) use of oral hypoglycemic drugs; Y83.6 Removal of other organ (partial) (total) as the cause of abnormal reaction of the patient, or of later complication, without mention of misadventure at the time of the procedure
CPT/HCPCS: 74160; 76705; 80048; 80053; 81001; 81003; 83036; 83690; 83880; 85025; 96374; 96375; 96376; C9113; J0696; J1170; J1650; J2060; J2270; J2405; J2543; J7030; J7042; Q9967

== ENCOUNTER 2016-08-27 12:05 | Inpatient (IN) | payer OTHER ==
[~2016-08-27] VITALS: Ht 160 cm; Wt 106.6 kg
[~2016-08-27 12:05] MED LIST changes: -ALPR1TAB7 PO; -FER325 PO; +GABA300C16 PO; -MINE473O2 PO; -MYL80 PO; +ONDA4TAB95 PO; -Oxycodone/Acetamin (5/325) PO; +PANT40TA3 PO
[2016-08-27] MEDS ORDERED: ONDANSETRON 4 MG INJ IV STA ×3 (13:29→16:42)
[2016-08-27] MEDS ORDERED: morphine 4 MG/ML VIAL IV STA ×2 (13:29→15:11)
[2016-08-27] MEDS ORDERED: SOD CHLORIDE 0.9% 1,000 ML IV STA (13:29)
--- NOTE | 2016-08-27 13:38 | ERD ---
ER Documentation Chief Complaint Date/Time DATE: 08/27/16 TIME: 13:34 Chief Complaint abdominal pain and fever x 1 week HPI 36-year-old female with a history of biloma, cholecystectomy in April 2016, ERCP and stent placement in June 2016, and anemia, returns to the emergency department after being discharged by Dr. Vazquez, on 12 August for increased abdominal pain, nausea, vomiting, and fever. Patient followed up as directed with Dr. Chandan Dixon today who referred her to the emergency department for a lab workup and pain control. Patient currently rates her pain at a 10 out of 10 diffuse sharp pain worse with movement. She has attempted to treat her symptoms at home with Zofran and gabapentin without significant relief. ROS All systems reviewed and are negative except as per history of present illness. Medications Home Meds Active Scripts Pantoprazole* (Protonix*) 40 Mg Tablet., 40 MG PO DAILY for 28 Days, TAB Prov:JEB VAZQUEZ MD 08/12/16 Pantoprazole* (Pantoprazole*) 40 Mg Tablet., 40 MG PO DAILY@06 for 14 Days Prov:JEB VAZQUEZ MD 07/27/16 Losartan Potassium* (Losartan Potassium*) 25 Mg Tablet, 25 MG PO DAILY@21 for 28 Days, TAB Prov:JEB VAZQUEZ MD 07/27/16 Reported Medications Ondansetron Hcl* (Ondansetron Hcl*) 4 Mg Tablet, 4 MG PO Q8H Y for NAUSEA AND OR VOMITING, TAB 08/06/16 Gabapentin* (Gabapentin*) 300 Mg Capsule, 300 MG PO Q6H, #90 CAP 08/06/16 Sertraline Hcl* (Sertraline Hcl*) 100 Mg Tablet, 100 MG PO DAILY, #30 TAB 04/28/16 Metformin* (Glucophage*) 1,000 Mg Tablet, 1000 MG PO BID, #60 TAB 04/28/16 Eszopiclone (Lunesta) 2 Mg Tab, 2 MG PO HS Y for INSOMNIA, TAB 04/28/16 Allergies Allergies: Coded Allergies: No Known Allergy (Unverified , 08/06/16) PMhx/Soc History of Surgery: Yes Anesthesia Reaction: No Hx Neurological Disorder: No Hx Respiratory Disorders: No Hx Cardiac Disorders: No Hx Psychiatric Problems: No Hx Miscellaneous Medical Probl: Yes (ANEMIA) Hx Alcohol Use: No Hx Substance Use: No Hx Tobacco Use: No Physical Exam Vitals Vital Signs Date Time Temp Pulse Resp B/P Pulse Ox O2 Delivery O2 Flow Rate FiO2 08/27/16 12:10 99.6 100 20 132/64 95 Physical Exam Const: Well-developed, well-nourished, in moderate distress Head: Atraumatic Eyes: Normal Conjunctiva ENT: Normal External Ears, Nose and Mouth. Neck: Full range of motion..~ No meningismus. Resp: Clear to auscultation bilaterally Cardio: Regular rate and rhythm, no murmurs Abd: Soft, diffusely tender, nondistended, normal bowel sounds Skin: No petechiae or rashes Back: No midline or flank tenderness Ext: No cyanosis, or edema Neur: Awake and alert Psych: Normal Mood and Affect Result Diagram: 08/27/16 1400 08/27/16 1400 Results 24 hrs Laboratory Tests Test 08/27/16 14:00 White Blood Count 19.710^3/ul Red Blood Count 4.3210^6/ul Hemoglobin 11.0g/dl Hematocrit 34.2% Mean Corpuscular Volume 79.2fl Mean Corpuscular Hemoglobin 25.5pg Mean Corpuscular Hemoglobin Concent 32.2g/dl Red Cell Distribution Width 14.3% Platelet Count 06780^3/UL Mean Platelet Volume 8.5fl Neutrophils % 71.4% Lymphocytes % 16.8% Monocytes % 10.4% Eosinophils % 0.3% Basophils % 0.3% Nucleated Red Blood Cells % 0.0/100WBC Neutrophils # 14.110^3/ul Lymphocytes # 3.310^3/ul Monocytes # 2.110^3/ul Eosinophils # 0.110^3/ul Basophils # 0.110^3/ul Nucleated Red Blood Cells # 0.010^3/ul Urine Color LT. YELLOW Urine Clarity SLIGHTLY CLOUDY Urine pH 5.5 Urine Specific [place] <=1.005 Urine Ketones NEGATIVE Urine Nitrite NEGATIVE Urine Bilirubin NEGATIVE Urine Urobilinogen 0.2 E.U./dL Urine Leukocyte Esterase 1+ Urine Microscopic RBC 0-2/HPF Urine Microscopic WBC 2-5/HPF Urine Epithelial Cells FEW Urine Hemoglobin TRACE Urine Glucose NEGATIVE% Urine Total Protein NEGATIVE Sodium Level 141mmol/L Potassium Level 3.4mmol/L Chloride Level 98mmol/L Carbon Dioxide Level 29mmol/L Anion Gap 17 Blood Urea Nitrogen 6mg/dl Creatinine 0.52mg/dl Glucose Level 105mg/dl Lactic Acid Level 1.2mmol/L Calcium Level 8.6mg/dl Total Bilirubin 0.0mg/dl Direct Bilirubin 0.00mg/dl Indirect Bilirubin 0.0mg/dl Aspartate Amino Transf (AST/SGOT) 20IU/L Alanine Aminotransferase (ALT/SGPT) 30IU/L Alkaline Phosphatase 109IU/L Total Protein 8.1g/dl Albumin 3.7g/dl Globulin 4.40g/dl Albumin/Globulin Ratio 0.84 Amylase Level 53U/L Lipase 25U/L Current Medications Medications (Trade) Dose Ordered Sig/Belkys Route PRN Reason Start Time Stop Time Status Last Admin Dose Admin Sodium Chloride (NS) 1,000 ml @ 1,000 mls/hr Q1H STAT IV 08/27/16 13:29 08/27/16 14:28 DC 08/27/16 14:12 Morphine Sulfate (morphine) 4 mg ONCE STAT IV 08/27/16 13:29 08/27/16 13:31 DC 08/27/16 14:13 Ondansetron HCl (Zofran Inj) 4 mg ONCE STAT IV 08/27/16 13:29 08/27/16 13:31 DC 08/27/16 14:12 Morphine Sulfate (morphine) 4 mg ONCE STAT IV 08/27/16 15:11 08/27/16 15:13 DC 08/27/16 15:30 Ondansetron HCl (Zofran Inj) 4 mg ONCE STAT IV 08/27/16 15:11 08/27/16 15:13 DC 08/27/16 15:30 Procedures/MDM PROCEDURE: US Abdomen and Retroperitoneum. CLINICAL INDICATION: Abdominal pain, status post cholecystectomy. TECHNIQUE: Multiple real-time longitudinal and transverse images were acquired of the patient's abdomen and retroperitoneum utilizing a curved array transducer. COMPARISON: Correlation with CT from 08/08/2016. FINDINGS: The liver is normal in size and echogenicity without focal mass or intrahepatic biliary dilatation. Normal hepatopetal flow is seen within the main portal vein. The gallbladder is not seen. No abnormality is seen in the gallbladder fossa. No intra or extrahepatic biliary dilatation is seen. The common bile duct measures 4.1 mm in maximal dimension. The visualized portions of the pancreas are unremarkable with obscuration of the tail of the pancreas. The spleen is normal in size and homogeneous in echogenicity. No free fluid is identified. The right kidney measures 13.1 cm in length. The left kidney measures 14.7 cm in length. There is mild right-sided hydronephrosis. There is normal echogenicity within the kidneys. There are no perinephric fluid collections. No mass or calculus is seen. The aorta and IVC are unremarkable. IMPRESSION: 1. Status post cholecystectomy without evidence of abnormality within the gallbladder fossa. 2. Mild right hydronephrosis. RPTAT: JJ .Mitch Perez MD, MD Date Time Electronically viewed and signed by .Mitch Perez MD, on 08/27/2016 15:00 .A/ CC: ENID WISE PA-C This is a 36-year-old female with extensive abdominal history including cholecystectomy, ERCP and stent placement, and recent discharge from the hospital on August 12, 2016, who presents with increased abdominal pain, nausea, vomiting, and fever. Vital signs were reviewed. Patient is afebrile. Patient is non-tachycardic, normotensive and non-hypoxic upon arrival. Patient was seen by Dr. Chandan Dixon today who referred her here for lab work and pain control. Physical exam with diffuse tenderness to palpation. CBC showed elevated white count of 19.7 as well as mild anemia. Patient is not actively bleeding and is hgb/hct is unchanged compared to prior studies. CMP showed mildly decreased potassium without severe acidosis, alkalosis, renal failure, or liver disease. Lipase showed no evidence of acute pancreatitis. UA showed 2+ leukoesterase Urine test was negative. Patient received a bolus of fluids as well as pain and nausea medication while in the emergency department. I was unable to control the patient's pain symptoms with 2 doses of 4 mg morphine. Case discussed with Dr. Gigi Wagner. Plan to admit. Departure Diagnosis: Primary Impression: Abdominal pain Abdominal location: generalized Qualified Code: R10.84 - Generalized abdominal pain Additional Impressions: Fever Fever type: unspecified Qualified Code: R50.9 - Fever, unspecified fever cause Nausea & vomiting Vomiting type: unspecified Vomiting Intractability: unspecified Qualified Code: R11.2 - Nausea and vomiting, intractability of vomiting not specified, unspecified vomiting type ENID WISE PA-C August 27, 2016 13:38
[2016-08-27 14:21] LABS: ADD SCAN DIFF NO
[2016-08-27 14:25] LABS: ABNORMAL IP MESSAGE 1; BASOPHIL # 0.1 10^3/ul (0.0-0.1); BASOPHILS % 0.3 % (0.0-2.0); EOSINOPHILS # 0.1 10^3/ul (0.0-0.5); EOSINOPHILS % 0.3 % (0.0-7.0); HEMATOCRIT 34.2 % (37.0-47.0); LYMPHOCYTES # 3.3 10^3/ul (0.8-2.9); LYMPHOCYTES % 16.8 % (15.0-51.0); MEAN CORPUSCULAR HEMOGLOBIN 25.5 pg (29.0-33.0); MEAN CORPUSCULAR HGB CONC 32.2 g/dl (32.0-37.0); MEAN CORPUSCULAR VOLUME 79.2 fl (82.0-101.0); MEAN PLATELET VOLUME 8.5 fl (7.4-10.4); MONOCYTE # 2.1 10^3/ul (0.3-0.9); MONOCYTES % 10.4 % (0.0-11.0); NEUTROPHIL # 14.1 10^3/ul (1.6-7.5); NEUTROPHILS % 71.4 % (39.0-77.0); PLATELET COUNT 468 10^3/UL (140-415); RED BLOOD COUNT 4.32 10^6/ul (4.20-5.40); RED CELL DISTRIBUTION WIDTH 14.3 % (11.5-14.5); WHITE BLOOD COUNT 19.7 10^3/ul (4.8-10.8)
[2016-08-27 14:34] LABS: ADD UMIC YES; URINE BILIRUBIN (Dip) NEGATIVE (NEGATIVE); URINE BLOOD (Dip) TRACE (NEGATIVE); URINE COLOR LT. YELLOW (YELLOW); URINE GLUCOSE (Dip) NEGATIVE (NEGATIVE); URINE KETONES (Dip) NEGATIVE (NEGATIVE); URINE LEUKOCYTE ESTERASE (Dip) 1+ (NEGATIVE); URINE NITRITE (Dip) NEGATIVE (NEGATIVE); URINE TOTAL PROTEIN (Dip) NEGATIVE (NEGATIVE); URINE UROBILINOGEN (Dip) 0.2 E.U./dL (0.1-1.0)
[2016-08-27 14:38] LABS: ALBUMIN 3.7 g/dl (3.3-4.9)
[2016-08-27 14:39] LABS: POTASSIUM 3.4 mmol/L (3.5-5.1)
[2016-08-27 14:40] LABS: URINE RBCS 0-2 /HPF (0)
[2016-08-27 14:41] LABS: ALBUMIN/GLOBULIN RATIO 0.84; CREATININE 0.52 mg/dl (0.44-1.00); TOTAL PROTEIN 8.1 g/dl (6.1-8.1)
[2016-08-27 14:42] LABS: CALCIUM 8.6 mg/dl (8.4-10.2)
--- NOTE | 2016-08-27 15:01 | RADRPT ---
PROCEDURE: US Abdomen and Retroperitoneum. CLINICAL INDICATION: Abdominal pain, status post cholecystectomy. TECHNIQUE: Multiple real-time longitudinal and transverse images were acquired of the patient's ab domen and retroperitoneum utilizing a curved array transducer. COMPARISON: Correlation with CT from 08/08/2016. FINDINGS: The liver is normal in size and echogenicity without focal mass or intrahepatic biliary dilatation. Normal hepatopetal flow is seen within the main portal vein. The gallbladder is not seen. No abnorm ality is seen in the gallbladder fossa. No intra or extrahepatic biliary dilatation is seen. The com mon bile duct measures 4.1 mm in maximal dimension. The visualized portions of the pancreas are un remarkable with obscuration of the tail of the pancreas. The spleen is normal in size and homogeneo us in echogenicity. No free fluid is identified. The right kidney measures 13.1 cm in length. The left kidney measures 14.7 cm in length. There is mild right-sided hydronephrosis. There is normal echogenicity within the kidneys. There are no per inephric fluid collections. No mass or calculus is seen. The aorta and IVC are unremarkable. IMPRESSION: 1. Status post cholecystectomy without evidence of abnormality within the gallbladder fossa. 2. Mild right hydronephrosis. RPTAT: JJ .Mitch Perez MD, MD Date Time Electronically viewed and signed by .Mitch Perez MD, on 08/27/2016 15:00 .A/
[2016-08-27] MEDS ORDERED: ONDANSETRON 4 MG INJ IV PRN (16:30)
[2016-08-27] MEDS ORDERED: ACETAMINOPHEN 325 MG TAB PO PRN ×2 (16:30→23:30)
[2016-08-27] MEDS ORDERED: HYDROmorphONE 2 MG/ML SYG IV STA (16:42)
--- NOTE | 2016-08-27 16:55 | RADRPT ---
PROCEDURE: CT Abdomen and Pelvis without contrast. CLINICAL INDICATION: Abdominal pain TECHNIQUE: CT of the abdomen and pelvis was performed on a multi-detector scanner without IV contr ast. Coronal and sagittal images were reformatted from the axial data set. One or more of the foll owing dose reduction techniques were used: automated exposure control, adjustment of the mA and/or kV according to patient size, use of iterative reconstruction technique. CTDI = 23.71 mGy. DLP = 16 15.36 mGy-cm. COMPARISON: CT, 08/08/2016 FINDINGS: CT abdomen: There is mild bibasilar atelectasis. The heart size is normal, without pericardial effusion. Gas a nd fluid collection is again noted in the right upper quadrant, measuring approximately 9 x 5 cm (3- 89), previously 8 x 4 cm. Previously seen pigtail drainage catheter has been removed. Gallbladder is surgically absent. Common bile duct stent is in place. No biliary dilatation is identified. Li tamara, pancreas, spleen, adrenal glands and kidneys are unremarkable. No urolithiasis or obstructive uropathy is identified. The stomach is grossly unremarkable. The aorta is of normal caliber. There is no retroperitoneal lymphadenopathy. The neeta hepatis reg ion is clear. CT pelvis: No bowel obstruction or free intraperitoneal air is identified. There is no diverticulosis, diverti culitis, colitis or appendicitis. Urinary bladder, uterus and adnexa are grossly unremarkable. No pelvic mass, free fluid or lymphadenopathy is identified. The surrounding osseous structures are unremarkable. No osteolytic or osteoblastic lesion is detect ed. IMPRESSION: 1. Gas and fluid collection is again noted in the right upper quadrant, concerning for abscess, mil dly increased in size when compared to the prior exam. There has been interval removal of previousl y seen percutaneous drainage catheters. 2. Gallbladder is surgically absent. Common bile duct stent is in place. No biliary dilatation is seen. RPTAT: AA .Leonel Johnson MD, MD Date Time Electronically viewed and signed by .Leoenl Johnson MD, MD on 08/27/2016 16:55 .R/
[2016-08-27] MEDS ORDERED: SERT100T PO (16:59)
[2016-08-27] MEDS ORDERED: ALPR2TAB PO (17:13)
[2016-08-27 20:00] VITALS: Ht 160 cm; Wt 106.6 kg
[2016-08-27] MEDS ORDERED: CEFTRIAXONE 1 GM/50 ML (PMX) 50 ML IVPB SCH (20:00)
[2016-08-27] MEDS: ACETAMINOPHEN 325 MG TAB PO PRN (20:01)
[2016-08-27] MEDS: HYDROmorphONE 1 MG/ML SYG IV PRN (20:02)
[2016-08-27] MEDS: SOD CHLORIDE 0.9% 1,000 ML IV SCH (20:06)
[2016-08-27 20:10] VITALS: BP 136/81; RESP 19
[2016-08-27] MEDS: GABAPENTIN 300 MG CAP PO SCH (20:30)
[2016-08-27] MEDS: LOSARTAN 25 MG TAB PO SCH (20:30)
[2016-08-27] MEDS ORDERED: POTASSIUM CHLORIDE 250 ML IVPB ONE (20:30)
[2016-08-27] MEDS ORDERED: ONDANSETRON 4 MG TAB PO PRN (20:30)
[2016-08-27] MEDS ORDERED: ALPRAZOLAM 1 MG TAB PO PRN (20:30)
--- NOTE | 2016-08-27 23:17 | QN ---
Documentation Comment [id number] JEB VAZQUEZ MD August 27, 2016 23:17
[2016-08-27] MEDS ORDERED: BISACODYL (EC) 5 MG TAB PO PRN (23:30)
[2016-08-27] MEDS ORDERED: HYDROCODONE/APAP (5/325) TAB PO PRN (23:30)
[2016-08-27] MEDS ORDERED: NACL 0.9% 3 ML SYG IV SCH (23:30)
[2016-08-27] MEDS ORDERED: MAGNESIUM HYDROXIDE 30ML CUP PO PRN (23:30)
[2016-08-27] MEDS ORDERED: DOCUSATE SODIUM 100 MG CAP PO PRN (23:30)
[2016-08-28] VITALS (17 sets, daily range): BP systolic 105–158; BP diastolic 56–82; PULSE 102–110; RESP 18–26
[2016-08-28] MEDS: HYDROmorphONE 1 MG/ML SYG IV PRN ×6 (00:03→21:06)
[2016-08-28] MEDS: NS + KCL 20 MEQ 1,000 ML IV SCH (00:08)
[2016-08-28] MEDS: ALPRAZOLAM 0.5 MG TAB PO PRN ×2 (00:14→10:17)
[2016-08-28] MEDS: GABAPENTIN 300 MG CAP PO SCH ×4 (02:30→19:58)
[2016-08-28] MEDS: ACETAMINOPHEN 325 MG TAB PO PRN ×2 (03:06→12:59)
--- NOTE | 2016-08-28 04:45 | HP ---
DATE OF ADMISSION: 08/27/2016 HISTORY OF PRESENT ILLNESS: Toshia Perdomo is a 36-year-old female with a history of cholecystectomy, recently discharged, and presented back again with abdominal pain, fever, and chills. The patient previously was discharged home. The patient has history of ERCP and stent placement. The patient a lso has right upper quadrant bile leak and biloma status post drainage. The patient has dyslipidemi a, anemia. Discharged home, presented back with abdominal pain, and is being admitted for further m anagement. PAST MEDICAL HISTORY: Once again, positive for obesity, dyslipidemia, anemia, cholecystectomy, hist ory of ERCP and stent placement. The patient also has a history of biloma status post drainage. ALLERGY HISTORY: NEGATIVE. FAMILY HISTORY: Negative. SOCIAL HISTORY: Negative. MEDICATION HISTORY: The patient is on 1. Xanax. 2. Lunesta. 3. Gabapentin. 4. Losartan. 5. Zofran. 6. Protonix. 7. Zoloft. REVIEW OF SYSTEMS: HEENT: Unremarkable. RESPIRATORY: Unremarkable. CARDIOVASCULAR: Unremarkable. ABDOMEN: Complaining of abdominal pain. EXTREMITIES: Unremarkable. CENTRAL NERVOUS SYSTEM: Unremarkable. PHYSICAL EXAMINATION: GENERAL: The patient is an obese female. VITAL SIGNS: Temperature 100.7, blood pressure 136/81. HEAD: Atraumatic, normocephalic. Pupils equal, reactive to light. NECK: Supple. No JVD. LUNGS: Clear. CARDIOVASCULAR: S1, S2 normal. ABDOMEN: Soft, obese. Bowel sounds present. Tenderness in the right upper quadrant noted. EXTREMITIES: No cyanosis, clubbing, or edema. CENTRAL NERVOUS SYSTEM: The patient is awake, alert with no focal deficit. LABORATORY DATA: As mentioned above. The patient had a CT scan of the abdomen and pelvis done that shows gas and fluid collection again noted in the right upper quadrant concerning for abscess. IMPRESSION: 1. The patient has right upper quadrant abscess, possibly biloma. 2. The patient has leukocytosis. 3. History of cholecystectomy. 4. Anemia. 5. Hypokalemia. 6. Obesity. 7. Dyslipidemia. 8. Anxiety. 9. Insomnia. PLAN: To obtain surgical consultation, ID consultation, antibiotic, IV fluid, continue home medicat ion. DVT prophylaxis, pain medication. Orders were done. Dictated By: JEB SILVERIO/ARGELIA Conf#: [id number] [facility]#: [id number]
[2016-08-28 05:14] LABS: ADD SCAN DIFF NO
[2016-08-28 05:16] LABS: ABNORMAL IP MESSAGE 1; BASOPHILS % 0.2 % (0.0-2.0); EOSINOPHILS % 0.1 % (0.0-7.0); HEMATOCRIT 32.5 % (37.0-47.0); HEMOGLOBIN 10.4 g/dl (12.0-16.0); LYMPHOCYTES # 2.3 10^3/ul (0.8-2.9); LYMPHOCYTES % 13.2 % (15.0-51.0); MEAN CORPUSCULAR VOLUME 78.1 fl (82.0-101.0); MEAN PLATELET VOLUME 8.8 fl (7.4-10.4); MONOCYTE # 1.6 10^3/ul (0.3-0.9); MONOCYTES % 9.6 % (0.0-11.0); NEUTROPHILS % 76.1 % (39.0-77.0); PLATELET COUNT 442 10^3/UL (140-415); RED BLOOD COUNT 4.16 10^6/ul (4.20-5.40); RED CELL DISTRIBUTION WIDTH 14.4 % (11.5-14.5); WHITE BLOOD COUNT 17.1 10^3/ul (4.8-10.8)
[2016-08-28] MEDS: metroNIDAZOLE 500 MG/NS (PMX) 100 ML IVPB SCH ×2 (05:40→14:21)
[2016-08-28 05:41] LABS: ALBUMIN 3.4 g/dl (3.3-4.9); ALBUMIN/GLOBULIN RATIO 0.8; CALCIUM 8.2 mg/dl (8.4-10.2); CREATININE 0.42 mg/dl (0.44-1.00); POTASSIUM 3.8 mmol/L (3.5-5.1); TOTAL PROTEIN 7.6 g/dl (6.1-8.1)
[2016-08-28] MEDS ORDERED: PANTOPRAZOLE 40 MG INJ IV SCH ×2 (06:00)
[2016-08-28] MEDS: PANTOPRAZOLE (EC) 40 MG TAB PO SCH ×2 (09:00→14:21)
[2016-08-28] MEDS: SERTRALINE 100 MG TAB PO SCH (10:17)
[2016-08-28] MEDS ORDERED: LIDOCAINE 1% (MDV) 20 ML INJ ONE (10:38)
[2016-08-28] MEDS ORDERED: FENTAnyl 50 MCG/ML VIAL ONE ×3 (10:38→11:22)
[2016-08-28] MEDS ORDERED: SOD CHLORIDE 0.9% 500 ML ONE (10:38)
[2016-08-28] MEDS ORDERED: MIDAZOLAM 1 MG/ML 2 ML INJ ONE ×2 (10:38→11:22)
--- NOTE | 2016-08-28 13:55 | RADRPT ---
PROCEDURE: CT guided abdominal abscess drainage. CLINICAL INDICATION: History of cholecystectomy with subsequent bile leak and common bile duct nisa nt placement. History of right upper quadrant abscess which was previously drained. Recurrent righ t upper quadrant abscess. TECHNIQUE: Informed consent was obtained. The procedure, risks, benefits, complications and alternatives were explained to the patient. Risks including bleeding and infection were explained. The patient underst ood and was willing to proceed. A procedural pause was performed. The patient's name, date of , and procedure to be performed were verified. One or more of the following dose reduction techniq ues were used: Automated exposure control, adjustment of the mA and/or kV according to patient size, use of iterative reconstruction technique. Using local anesthetic, sterile technique and CT guidance, a 19-gauge Yueh needle was advanced into the fluid collection in the right upper quadrant laterally. CT scan was performed confirming positi on. Purulent fluid was also aspirated confirming position. The needle from the Yueh catheter was r emoved, leaving the Yueh catheter in place within the fluid collection. A 0.035-inch Amplatz guidew ramez was advanced through the Yueh catheter into the fluid collection. The Yueh catheter was removed . The tract was dilated to 10 Danish and a 10.2 Danish multipurpose drainage catheter was advanced over the guidewire into the fluid collection. The guidewire was removed. Additional scanning was p erformed confirming position. The catheter was then sutured to the patient's skin with 2-0 silk. A pproximately 40 ml of purulent fluid was aspirated. The catheter was connected to a drainage bag. A dressing was applied. The patient tolerated procedure well. COMPARISON: None. FINDINGS: Final images demonstrate the drainage catheter in satisfactory position within the fluid collection. IMPRESSION: 1. Successful CT guided right upper quadrant abscess drainage. RPTAT: QQ .Mao Saeed MD, MD Date Time Electronically viewed and signed by .Mao Saeed MD, on 08/28/2016 13:55 .R/
--- NOTE | 2016-08-28 18:23 | CONS ---
DATE OF ADMISSION: 08/27/2016 DATE OF CONSULTATION: 08/28/2016 TYPE OF CONSULTATION: Infectious disease. REASON FOR CONSULTATION: Antibiotic management. HISTORY OF PRESENT ILLNESS: Toshia Perdomo is a 36-year-old female with a number of problems who come s in now with right upper quadrant biliary leak and actually she comes in now with abdominal pain an d is being seen for antibiotic management. Her past problems include: 1. Obesity. 2. Dyslipidemia. 3. Anemia. 4. Status post cholecystectomy. 5. History of ERCP and stent placement. 6. History of biloma status post drainage. 7. The patient was recently discharged and she returned to the ER with abdominal pain, fever and ch ills. PAST MEDICAL HISTORY: As outlined. FAMILY HISTORY: Noncontributory. SOCIAL HISTORY: She does not smoke, drink or abuse drugs. ALLERGIES: NONE TO PENICILLIN, SULFA OR FOODS. MEDICATIONS: Per chart. REVIEW OF SYSTEMS: Noncontributory. PHYSICAL EXAMINATION: GENERAL: The patient is a well-developed, somewhat obese female who is alert, responsive, in no acu te distress. VITAL SIGNS: Stable. T-max of 100.7, T current of 100.2. Her T-max is 101.4. SKIN: Without generalized rash. HEENT: Within normal limits. NECK: Supple. LYMPH NODES: None palpable. CHEST: Decreased breath sounds at the bases. HEART: Without murmur or gallop. ABDOMEN: Soft. She has some tenderness in right upper quadrant without rebound or guarding. EXTREMITIES: Without cyanosis, clubbing, or edema. RECTAL AND GENITAL: Deferred. NEUROLOGICAL: No focal neurological abnormalities. HOSPITAL COURSE: On admission, her white count was 19.7, now at 17.1, H and H 10.4 and 32.5, platel et count 442,000. Her BUN and creatinine are 5/0.42. Urine shows 1+ leukocyte esterase, 2 to 5 whi te cells per high powered field. Abdominal pelvic CT was done which shows gas and fluid collection noted in the right upper quadrant concerning for abscess, mildly increased in size when compared to prior exam. There is an interval removal of previously seen percutaneous drainage catheters. The g allbladder is surgically absent. Common bile duct stent is in place. No biliary dilatation seen. A successful CT ultrasound-guided right upper quadrant abscess was drained. A catheter connected to a drainage bag was placed. She had 40 mL of purulent fluid drained today. Catheter and drainage b ag are currently present. Cultures are pending. IMPRESSION AND PLAN: The patient is currently on ceftriaxone and metronidazole. I am not clear why this combination was chosen but will await the drainage and probably switch her over to ertapenem o r to imipenem. However, since cultures were done, we can wait 24 hours. No, I think I am going to switch her at this point to imipenem. I will dictate my findings to Dr. Lange. Dictated By: DALTON JONES MD, JD/ARGELIA Conf#: [id number] DID#: [id number]
[2016-08-28] MEDS: SOD CHLORIDE 0.9% 1,000 ML IV SCH (20:00)
[2016-08-28] MEDS: LOSARTAN 25 MG TAB PO SCH (20:46)
[2016-08-28] MEDS: MEROPENEM 500 MG/100 ML (PMX) 100 ML IVPB SCH (21:27)
--- NOTE | 2016-08-28 22:53 | PN ---
Date/Time of Note Date/Time of Note DATE: 08/28/16 TIME: 22:52 Assessment/Plan VTE Prophylaxis VTE Prophylaxis Intervention: other Lines/Catheters IV Catheter Type (from Nrs): Peripheral IV Urinary Cath still in place: No Assessment/Plan Chief Complaint/Hosp Course IMPRESSION: 1. The patient has right upper quadrant abscess, possibly biloma. 2. The patient has leukocytosis. 3. History of cholecystectomy. 4. Anemia. 5. Hypokalemia. 6. Obesity. 7. Dyslipidemia. 8. Anxiety. 9. Insomnia. planantibiotic id to see dr martin called Problems: Subjective 24 Hr Interval Summary Respiratory: no complaints Cardiovascular: no complaints Gastrointestinal: pain (+) Exam/Review of Systems Vital Signs Vitals Vital Signs Date Time Temp Pulse Resp B/P Pulse Ox O2 Delivery O2 Flow Rate FiO2 08/28/16 20:17 99.1 86 18 118/67 95 08/28/16 12:55 Room Air 08/28/16 12:10 2.0 Intake and Output 08/27/16 08/27/16 08/28/16 15:00 23:00 07:00 Intake Total 50 ml 1390 ml Balance 50 ml 1390 ml Exam Respiratory: clear to auscultation Cardiovascular: regular rate and rhythm Gastrointestinal: soft Results Result Diagram: 08/28/16 0425 08/28/16 0425 Results 24 hrs Laboratory Tests Test 08/28/16 04:25 White Blood Count 17.1 H Red Blood Count 4.16 L Hemoglobin 10.4 L Hematocrit 32.5 L Mean Corpuscular Volume 78.1 L Mean Corpuscular Hemoglobin 25.0 L Mean Corpuscular Hemoglobin Concent 32.0 Red Cell Distribution Width 14.4 Platelet Count 442 H Mean Platelet Volume 8.8 Neutrophils % 76.1 Lymphocytes % 13.2 L Monocytes % 9.6 Eosinophils % 0.1 Basophils % 0.2 Nucleated Red Blood Cells % 0.0 Neutrophils # 13.0 H Lymphocytes # 2.3 Monocytes # 1.6 H Eosinophils # 0.0 Basophils # 0.0 Nucleated Red Blood Cells # 0.0 Sodium Level 137 Potassium Level 3.8 Chloride Level 102 Carbon Dioxide Level 25 Anion Gap 14 Blood Urea Nitrogen 5 L Creatinine 0.42 L Glucose Level 95 Calcium Level 8.2 L Total Bilirubin 0.0 L Direct Bilirubin 0.00 Indirect Bilirubin 0.0 Aspartate Amino Transf (AST/SGOT) 20 Alanine Aminotransferase (ALT/SGPT) 32 Alkaline Phosphatase 87 Total Protein 7.6 Albumin 3.4 Globulin 4.20 H Albumin/Globulin Ratio 0.80 Medications Medications Current Medications Sodium Chloride (NS) 1,000 ml @ 40 mls/hr Q24H IV Last administered on 20:06; Admin Dose 40 MLS/HR; Start 08/27/16 at 20:00 Acetaminophen (Tylenol Tab) 650 mg Q6H PRN PO PAIN AND OR ELEVATED TEMP Last administered on 08/28/16 12:59; Admin Dose 650 MG; Start 08/27/16 at 20:00 Gabapentin (Neurontin) 300 mg Q6H PO Last administered on 08/28/16 19:58; Admin Dose 300 MG; Start 08/27/16 at 20:30 Losartan Potassium (Cozaar) 25 mg DAILY@21 PO Last administered on 08/28/16 20 :46; Admin Dose 25 MG; Start 08/27/16 at 21:00 Ondansetron HCl (Zofran Tab) 4 mg Q8H PRN PO NAUSEA AND/OR VOMITING; Start at 20:30 Pantoprazole (Protonix Tab) 40 mg DAILY PO Last administered on 08/28/16 14:21 ; Admin Dose 40 MG; Start 08/28/16 at 09:00 Sertraline HCl 200 mg 200 mg DAILY PO Last administered on 08/28/16 10:17; Admin Dose 200 MG; Start 08/28/16 at 09:00 Potassium Chloride/Sodium Chloride (NS-KCl 20 Meq) 1,000 ml @ 50 mls/hr Q20H IV Last administered on 08/28/16 00:08; Admin Dose 50 MLS/HR; Start 08/27/16 at 23:09 Ondansetron HCl (Zofran Inj) 4 mg Q6H PRN IV NAUSEA AND/OR VOMITING; Start at 23:30 Acetaminophen/ Hydrocodone Bitart ([place] (5/325)) 1 tab Q6H PRN PO MODERATE PAIN LEVEL 4-6 Last administered on 08/28/16 19:59; Admin Dose 1 TAB; Start at 23:30 Docusate Sodium (Colace) 100 mg Q12H PRN PO CONSTIPATION; Start 08/27/16 at 23: 30 Magnesium Hydroxide (Milk Of Mag) 30 ml DAILY PRN PO CONSTIPATION; Start at 23:30 Bisacodyl (Dulcolax) 5 mg DAILY PRN PO CONSTIPATION; Start 08/27/16 at 23:30 Alprazolam (Xanax) 2 mg BID PRN PO ANXIETY Last administered on 08/28/16 10:17 ; Admin Dose 2 MG; Start 08/28/16 at 00:08 Hydromorphone HCl 1 mg 1 mg Q4H PRN IV PAIN Last administered on 08/28/16 21: 06; Admin Dose 1 MG; Start 08/28/16 at 06:00 Meropenem (Merrem 500 Mg/ 100 ml (Pmx)) 100 ml @ 200 mls/hr Q8 IVPB Last administered on 08/28/16 21:27; Admin Dose 200 MLS/HR; Start 08/28/16 at 22:00 JEB VAZQUEZ MD August 28, 2016 22:53
[2016-08-29] MEDS: HYDROmorphONE 1 MG/ML SYG IV PRN ×6 (01:10→21:21)
[2016-08-29] MEDS: GABAPENTIN 300 MG CAP PO SCH ×4 (05:11→21:28)
[2016-08-29] MEDS: NS + KCL 20 MEQ 1,000 ML IV SCH ×2 (05:15→15:09)
[2016-08-29] MEDS: MEROPENEM 500 MG/100 ML (PMX) 100 ML IVPB SCH ×3 (05:29→21:27)
[2016-08-29 05:54] LABS: ADD SCAN DIFF NO
[2016-08-29 05:58] LABS: BASOPHILS % 0.2 % (0.0-2.0); EOSINOPHILS # 0.2 10^3/ul (0.0-0.5); EOSINOPHILS % 1.6 % (0.0-7.0); HEMATOCRIT 32.3 % (37.0-47.0); HEMOGLOBIN 10.2 g/dl (12.0-16.0); LYMPHOCYTES # 3.1 10^3/ul (0.8-2.9); LYMPHOCYTES % 23.7 % (15.0-51.0); MEAN CORPUSCULAR HEMOGLOBIN 24.9 pg (29.0-33.0); MEAN CORPUSCULAR HGB CONC 31.6 g/dl (32.0-37.0); MEAN CORPUSCULAR VOLUME 78.8 fl (82.0-101.0); MEAN PLATELET VOLUME 8.7 fl (7.4-10.4); MONOCYTE # 1.2 10^3/ul (0.3-0.9); MONOCYTES % 9.2 % (0.0-11.0); NEUTROPHIL # 8.4 10^3/ul (1.6-7.5); NEUTROPHILS % 64.6 % (39.0-77.0); PLATELET COUNT 412 10^3/UL (140-415); RED CELL DISTRIBUTION WIDTH 14.6 % (11.5-14.5); WHITE BLOOD COUNT 13.1 10^3/ul (4.8-10.8)
[2016-08-29 06:24] LABS: ALBUMIN 3.1 g/dl (3.3-4.9); ALBUMIN/GLOBULIN RATIO 0.86; CALCIUM 8.2 mg/dl (8.4-10.2); CREATININE 0.36 mg/dl (0.44-1.00); TOTAL PROTEIN 6.7 g/dl (6.1-8.1)
[2016-08-29 07:35] VITALS: BP 133/72; RESP 16
[2016-08-29] MEDS: SERTRALINE 100 MG TAB PO SCH (08:55)
[2016-08-29] MEDS: PANTOPRAZOLE (EC) 40 MG TAB PO SCH (08:55)
[2016-08-29] MEDS: ACETAMINOPHEN 325 MG TAB PO PRN (09:01)
--- NOTE | 2016-08-29 12:05 | PN ---
Date/Time of Note Date/Time of Note DATE: 08/29/16 TIME: 12:03 Assessment/Plan VTE Prophylaxis VTE Prophylaxis Intervention: ambulation Lines/Catheters IV C[facility]ter Type (from [facility] Peripheral IV Urinary Cath still in place: No Assessment/Plan Chief Complaint/Hosp Course 1. The patient has right upper quadrant abscess, sp drain insertion 2. The patient has leukocytosis. 3. History of cholecystectomy. 4. Anemia. 5. Hypokalemia. 6. Obesity. 7. Dyslipidemia. 8. Anxiety. 9. Insomnia. Problems: Assessment/Plan 1. Per dr Georges 2. Continue a/b Subjective 24 Hr Interval Summary Constitutional: no complaints Exam/Review of Systems Vital Signs Vitals Vital Signs Date Time Temp Pulse Resp B/P Pulse Ox O2 Delivery O2 Flow Rate FiO2 08/29/16 07:35 99.6 84 16 133/72 94 08/28/16 12:55 Room Air 08/28/16 12:10 2.0 Intake and Output 08/28/16 08/28/16 08/29/16 15:00 23:00 07:00 Intake Total 315 ml 1420 ml 1550 ml Output Total 80 ml 40 ml 40 ml Balance 235 ml 1380 ml 1510 ml Exam Constitutional: alert, oriented ENMT: nl external ears & nose Neck: supple Respiratory: clear to auscultation Cardiovascular: regular rate and rhythm Results Result Diagram: 08/29/1625 08/29/16 0525 Results 24 hrs Laboratory Tests Test 08/29/16 05:25 White Blood Count 13.1 #H Red Blood Count 4.10 L Hemoglobin 10.2 L Hematocrit 32.3 L Mean Corpuscular Volume 78.8 L Mean Corpuscular Hemoglobin 24.9 L Mean Corpuscular Hemoglobin Concent 31.6 L Red Cell Distribution Width 14.6 H Platelet Count 412 Mean Platelet Volume 8.7 Neutrophils % 64.6 Lymphocytes % 23.7 Monocytes % 9.2 Eosinophils % 1.6 Basophils % 0.2 Nucleated Red Blood Cells % 0.0 Neutrophils # 8.4 H Lymphocytes # 3.1 H Monocytes # 1.2 H Eosinophils # 0.2 Basophils # 0.0 Nucleated Red Blood Cells # 0.0 Sodium Level 135 Potassium Level 4.0 Chloride Level 101 Carbon Dioxide Level 29 Anion Gap 9 # Blood Urea Nitrogen 5 L Creatinine 0.36 L Glucose Level 99 Calcium Level 8.2 L Total Bilirubin 0.0 L Direct Bilirubin 0.00 Indirect Bilirubin 0.0 Aspartate Amino Transf (AST/SGOT) 15 Alanine Aminotransferase (ALT/SGPT) 25 Alkaline Phosphatase 81 Total Protein 6.7 Albumin 3.1 L Globulin 3.60 H Albumin/Globulin Ratio 0.86 Medications Medications Current Medications Sodium Chloride (NS) 1,000 ml @ 40 mls/hr Q24H IV Last administered on 20:06; Admin Dose 40 MLS/HR; Start 08/27/16 at 20:00 Acetaminophen (Tylenol Tab) 650 mg Q6H PRN PO PAIN AND OR ELEVATED TEMP Last administered on 08/29/16 09:01; Admin Dose 650 MG; Start 08/27/16 at 20:00 Gabapentin (Neurontin) 300 mg Q6H PO Last administered on 08/29/16 05:11; Admin Dose 300 MG; Start 08/27/16 at 20:30 Losartan Potassium (Cozaar) 25 mg DAILY@21 PO Last administered on 08/28/16 20 :46; Admin Dose 25 MG; Start 08/27/16 at 21:00 Ondansetron HCl (Zofran Tab) 4 mg Q8H PRN PO NAUSEA AND/OR VOMITING; Start at 20:30 Pantoprazole (Protonix Tab) 40 mg DAILY PO Last administered on 08/29/16 08:55 ; Admin Dose 40 MG; Start 08/28/16 at 09:00 Sertraline HCl 200 mg 200 mg DAILY PO Last administered on 08/29/16 08:55; Admin Dose 200 MG; Start 08/28/16 at 09:00 Potassium Chloride/Sodium Chloride (NS-KCl 20 Meq) 1,000 ml @ 50 mls/hr Q20H IV Last administered on 08/29/16 05:15; Admin Dose 50 MLS/HR; Start 08/27/16 at 23:09 Ondansetron HCl (Zofran Inj) 4 mg Q6H PRN IV NAUSEA AND/OR VOMITING; Start at 23:30 Acetaminophen/ Hydrocodone Bitart ([place] (5/325)) 1 tab Q6H PRN PO MODERATE PAIN LEVEL 4-6 Last administered on 08/28/16 19:59; Admin Dose 1 TAB; Start at 23:30 Docusate Sodium (Colace) 100 mg Q12H PRN PO CONSTIPATION; Start 08/27/16 at 23: 30 Magnesium Hydroxide (Milk Of Mag) 30 ml DAILY PRN PO CONSTIPATION; Start at 23:30 Bisacodyl (Dulcolax) 5 mg DAILY PRN PO CONSTIPATION; Start 08/27/16 at 23:30 Alprazolam (Xanax) 2 mg BID PRN PO ANXIETY Last administered on 08/28/16 10:17 ; Admin Dose 2 MG; Start 08/28/16 at 00:08 Hydromorphone HCl 1 mg 1 mg Q4H PRN IV PAIN Last administered on 08/29/16 08: 55; Admin Dose 1 MG; Start 08/28/16 at 06:00 Meropenem (Merrem 500 Mg/ 100 ml (Pmx)) 100 ml @ 200 mls/hr Q8 IVPB Last administered on 08/29/16 05:29; Admin Dose 200 MLS/HR; Start 08/28/16 at 22:00 DEVONTE LORD August 29, 2016 12:05
[2016-08-29] MEDS: ALPRAZOLAM 0.5 MG TAB PO PRN ×2 (14:15→22:22)
--- NOTE | 2016-08-29 14:49 | PN ---
DATE: 08/29/2016 INFECTIOUS DISEASE PROGRESS NOTE SUBJECTIVE: No acute changes. The patient is awake, looks comfortable. No fevers. MICROBIOLOGY: Abdominal fluid cultures growing gram-negative rods. ANTIMICROBIALS: The patient is on meropenem. WBC today is 13.1. No shift, no bands. BUN 5, creatinine 0.36. PHYSICAL EXAMINATION: GENERAL: This is a well-developed, obese, middle-aged woman, who is in no distress. HEENT: Head atraumatic, normocephalic. Sclerae anicteric. Buccal mucosa dry. NECK: Supple, trachea midline. CHEST: Chest rise is symmetrical. Breath sounds clear. HEART: S1, S2. ABDOMEN: Soft. Bowel tones present. EXTREMITIES: Without cyanosis. ASSESSMENT: 1. Systemic inflammatory response syndrome with fevers and leukocytosis secondary to #2. 2. Recurrent intraabdominal abscess status post CT-guided drainage, with fluid cultures growing gra m-negative rods. 3. History of cholecystectomy. 4. History of biliary leak, status post stent placement on 07/19/2016. 5. History of post-ERCP pancreatitis. PLAN: The patient remains stable. Surgery follows her. She is on the appropriate antimicrobials. White blood cell count decreasing. Follow final cultures. Dictated By: [employer] AD[employer]ISTRATIVE SERVICES ASSISTANT for DALTON LOPEZ/ARGELIA Conf#: [id number] DID#: [id number]
[2016-08-29] MEDS: LOSARTAN 25 MG TAB PO SCH (21:28)
[2016-08-29 22:30] VITALS: BP 116/59; RESP 20
[2016-08-30] MEDS: HYDROmorphONE 1 MG/ML SYG IV PRN ×6 (01:29→21:15)
[2016-08-30] MEDS: GABAPENTIN 300 MG CAP PO SCH ×4 (01:29→21:17)
[2016-08-30] MEDS: MEROPENEM 500 MG/100 ML (PMX) 100 ML IVPB SCH ×2 (05:23→13:17)
[2016-08-30] MEDS: NS + KCL 20 MEQ 1,000 ML IV SCH (05:24)
[2016-08-30 06:02] LABS: ADD SCAN DIFF NO
[2016-08-30 06:16] LABS: BASOPHIL # 0.1 10^3/ul (0.0-0.1); BASOPHILS % 0.3 % (0.0-2.0); EOSINOPHILS # 0.2 10^3/ul (0.0-0.5); EOSINOPHILS % 1.2 % (0.0-7.0); HEMATOCRIT 34.2 % (37.0-47.0); HEMOGLOBIN 10.8 g/dl (12.0-16.0); LYMPHOCYTES # 3.4 10^3/ul (0.8-2.9); LYMPHOCYTES % 23.2 % (15.0-51.0); MEAN CORPUSCULAR HEMOGLOBIN 25.1 pg (29.0-33.0); MEAN CORPUSCULAR HGB CONC 31.6 g/dl (32.0-37.0); MEAN CORPUSCULAR VOLUME 79.4 fl (82.0-101.0); MEAN PLATELET VOLUME 8.7 fl (7.4-10.4); NEUTROPHIL # 9.8 10^3/ul (1.6-7.5); NEUTROPHILS % 67.5 % (39.0-77.0); PLATELET COUNT 495 10^3/UL (140-415); RED BLOOD COUNT 4.31 10^6/ul (4.20-5.40); RED CELL DISTRIBUTION WIDTH 14.6 % (11.5-14.5); WHITE BLOOD COUNT 14.5 10^3/ul (4.8-10.8)
[2016-08-30 06:29] LABS: CALCIUM 8.6 mg/dl (8.4-10.2); CREATININE 0.39 mg/dl (0.44-1.00); POTASSIUM 3.8 mmol/L (3.5-5.1)
--- NOTE | 2016-08-30 08:02 | CONS ---
Date/Time of Note Date/Time of Note DATE: 08/30/16 TIME: 07:55 Assessment/Plan Assessment/Plan Chief Complaint/Hosp Course ASSESSMENT: 1. Systemic inflammatory response syndrome with fevers and leukocytosis secondary to #2. 2. Recurrent intraabdominal abscess status post CT-guided drainage, with fluid cultures growing gram-negative rods. 3. History of cholecystectomy. 4. History of biliary leak, status post stent placement on 07/19/2016. 5. History of post-ERCP pancreatitis. PLAN: 1. continue IR drainage of the intraabdominal abscess. 2. Abx per ID medical consultant. 3. Follow final cultures. 4. f/u with Dr. Georges for management of intraabdominal abscess Problems: Consultation Date/Type/Reason Admit Date/Time August 27, 2016 at 16:10 Type of Consultation: GI Hx of Present Illness 36-year-old female with a history of cholecystectomy complicated by bile leak, s /p ERCP with stent placement and IR placement of drain, was stablized and discharged. She now presented back again with abdominal pain, fever, and chills. The patient has dyslipidemia, anemia. Currently no f, c, cp, sob, dysuria, urinary frequency, melena, brbpr, cough All point ROS administered, pertinent positives and negatives in HPI otherwise negative. Constitutional: no complaints Respiratory: no complaints Cardiovascular: no complaints Gastrointestinal: pain (+) Past Medical History Medical History: high cholesterol, urinary tract infection, other (obesity and anemia) Past Surgical History Past Surgical Hx: appendectomy, cholecystectomy, endoscopy Family History Significant Family History: no pertinent family hx Social History Alcohol Use: occasionally Smoking Status: Never smoker Drug Use: none Exam/Review of Systems Vital Signs Vitals Vital Signs Date Time Temp Pulse Resp B/P Pulse Ox O2 Delivery O2 Flow Rate FiO2 08/29/16 22:30 99.2 83 20 116/59 93 08/28/16 12:55 Room Air 08/28/16 12:10 2.0 Intake and Output 08/29/16 08/29/16 08/30/16 15:00 23:00 07:00 Intake Total 100 ml 1460 ml 600 ml Output Total 15 ml Balance 100 ml 1445 ml 600 ml Exam Constitutional: alert, obese, oriented Psych: nl mood/affect, no complaints Head: atraumatic, normocephalic Eyes: EOMI, nl conjunctiva, nl lids, nl sclera ENMT: mucosa pink and moist, nl external ears & nose, nl lips & teeth, nl nasal mucosa & septum Neck: non-tender, supple Respiratory: clear to auscultation, normal air movement Cardiovascular: nl pulses, regular rate and rhythm Gastrointestinal: bowel sounds, other (RUQ drain with prulent material in the tubing), soft Results Result Diagram: 08/30/16 0547 08/30/16 0547 Results 24 hrs Laboratory Tests Test 08/30/16 05:47 White Blood Count 14.5 H Red Blood Count 4.31 Hemoglobin 10.8 L Hematocrit 34.2 L Mean Corpuscular Volume 79.4 L Mean Corpuscular Hemoglobin 25.1 L Mean Corpuscular Hemoglobin Concent 31.6 L Red Cell Distribution Width 14.6 H Platelet Count 495 #H Mean Platelet Volume 8.7 Neutrophils % 67.5 Lymphocytes % 23.2 Monocytes % 7.0 Eosinophils % 1.2 Basophils % 0.3 Nucleated Red Blood Cells % 0.0 Neutrophils # 9.8 H Lymphocytes # 3.4 H Monocytes # 1.0 H Eosinophils # 0.2 Basophils # 0.1 Nucleated Red Blood Cells # 0.0 Sodium Level 137 Potassium Level 3.8 Chloride Level 101 Carbon Dioxide Level 28 Anion Gap 12 Blood Urea Nitrogen 3 L Creatinine 0.39 L Glucose Level 93 Calcium Level 8.6 Medications Medications Current Medications Acetaminophen (Tylenol Tab) 650 mg Q6H PRN PO PAIN AND OR ELEVATED TEMP Last administered on 08/29/16 09:01; Admin Dose 650 MG; Start 08/27/16 at 20:00 Gabapentin (Neurontin) 300 mg Q6H PO Last administered on 08/30/16 01:29; Admin Dose 300 MG; Start 08/27/16 at 20:30 Losartan Potassium (Cozaar) 25 mg DAILY@21 PO Last administered on 08/29/16 21 :28; Admin Dose 25 MG; Start 08/27/16 at 21:00 Ondansetron HCl (Zofran Tab) 4 mg Q8H PRN PO NAUSEA AND/OR VOMITING; Start at 20:30 Pantoprazole (Protonix Tab) 40 mg DAILY PO Last administered on 08/29/16 08:55 ; Admin Dose 40 MG; Start 5/25/17 at 09:00 Sertraline HCl 200 mg 200 mg DAILY PO Last administered on 08/29/16 08:55; Admin Dose 200 MG; Start 08/28/16 at 09:00 Potassium Chloride/Sodium Chloride (NS-KCl 20 Meq) 1,000 ml @ 50 mls/hr Q20H IV Last administered on 08/30/16 05:24; Admin Dose 50 MLS/HR; Start 08/27/16 at 23:09 Ondansetron HCl (Zofran Inj) 4 mg Q6H PRN IV NAUSEA AND/OR VOMITING; Start at 23:30 Acetaminophen/ Hydrocodone Bitart ([place] (5/325)) 1 tab Q6H PRN PO MODERATE PAIN LEVEL 4-6 Last administered on 08/28/16 19:59; Admin Dose 1 TAB; Start at 23:30 Docusate Sodium (Colace) 100 mg Q12H PRN PO CONSTIPATION; Start 08/27/16 at 23: 30 Magnesium Hydroxide (Milk Of Mag) 30 ml DAILY PRN PO CONSTIPATION; Start at 23:30 Bisacodyl (Dulcolax) 5 mg DAILY PRN PO CONSTIPATION; Start 08/27/16 at 23:30 Alprazolam (Xanax) 2 mg BID PRN PO ANXIETY Last administered on 08/29/16 22:22 ; Admin Dose 2 MG; Start 08/28/16 at 00:08 Hydromorphone HCl 1 mg 1 mg Q4H PRN IV PAIN Last administered on 08/30/16 05: 25; Admin Dose 1 MG; Start 08/28/16 at 06:00 Meropenem (Merrem 500 Mg/ 100 ml (Pmx)) 100 ml @ 200 mls/hr Q8 IVPB Last administered on 08/30/16 05:23; Admin Dose 200 MLS/HR; Start 08/28/16 at 22:00 RUBEN GUARDADO MD August 30, 2016 08:02
[2016-08-30] MEDS: PANTOPRAZOLE (EC) 40 MG TAB PO SCH (08:04)
[2016-08-30] MEDS: SERTRALINE 100 MG TAB PO SCH (08:04)
--- NOTE | 2016-08-30 08:20 | CONS ---
DATE OF ADMISSION: 08/27/2016 DATE OF CONSULTATION: 08/29/2016 TYPE OF CONSULTATION: Surgical. REQUESTING PHYSICIAN: Melvin Lange MD REASON FOR CONSULTATION: To follow up the patient along with other teams in regard to the intra-abdominal abscess. HISTORY OF PRESENT ILLNESS: This is a 36-year-old female who has been admitted in this hospital for maybe the fourth time. This time, the patient was admitted because of fever and right upper quadrant severe abdominal pain and nausea and probably occasional vomiting for 4 days' duration. She was admitted on 08/27/2016. At that time, she was referred to the emergency room and was evaluated by the emergency room physician. She was found to have a temperature 100.7 and she had a leukocytosis of 19,700 with 71% neutrophils and platelet count 468. Chemistry at that time showed potassium was slightly low at 3.4, bilirubin was 0, AST was 20, normal, ALT 30, normal, and alkaline phosphatase 109, normal. Albumin was 3.7, normal. Globulin is slightly elevated at 4.40. The patient was admitted. A CT scan of the abdomen was obtained at that time , which showed the following impression: 1. Gas and fluid collection is again noted in the right upper quadrant concerning for abscess, mild increase in size when compared to the prior examination. There has been interval removal of previously seen percutaneous drainage catheters. 2. Gallbladder is surgically absent. Common bile duct stent is in place. No biliary dilatation is seen. The patient actually was consulted with invasive radiology and yesterday invasive radiologist, Dr. Saeed, percutaneously inserted a pigtail catheter into the fluid collection cavity and 40 mL of purulent fluid as he has mentioned, was aspirated. The specimen was sent for culture and sensitivity, and the patient already has been started on antibiotics. Infectious disease group segment consultant recommended meropenem and ceftriaxone. This patient is well known to me. She underwent laparoscopic cholecystectomy on 04/29/2016, was complicated by intra-abdominal bleeding and required blood transfusion. Gradually the patient got better. Eventually was discharged home. Came back on 07/08/2016 with complaint of abdominal pain and was found that there was fluid collection which was in the peritoneal cavity _, so a percutaneous drainage was inserted. The patient eventually was discharged, but only to come back on 08/06/2016 with more pain in the right upper quadrant and history of fever, antibiotic started. She had leukocytosis and the 2 percutaneous pigtail drains were injected some fluid was aspirated, and gradually the drainage was stopped making the surgeons to decide to remove the drains because they were not draining anymore. So eventually both percutaneous pigtail drains were removed and the patient was discharged home in good condition. Now she is coming back with fever and continuation of accumulation of fluid. At this time, there is evidence of air-fluid level and gas in the right upper quadrant, which did not exist before. It should be mentioned that on the third admission, the patient had ERCP and evidence of leak from somewhere , probably the cystic duct and a biliary stent was reinserted by Dr. Blair. Now, the patient is here with fever and evidence of abscess in the right upper quadrant inferior to the right lower lobe of the liver and leukocytosis. The patient has been started on antibiotics today which is 08/29/2016. The patient has responded to antibiotic treatment, the leukocytosis has decreased to 13,100 with 64% neutrophils, and the temperature has dropped to 99.6 and on one occasion 98.7, heart rate has decreased from 100s to 84, respirations 16, blood pressure 133/72, saturation 94% on room air. ALLERGIES: NONE KNOWN. MEDICATIONS: Please refer to MAR. REVIEW OF SYSTEMS: As above. PHYSICAL EXAMINATION: GENERAL: Patient is alert, awake, oriented x3. She states that she feels slightly better today compared to 3 days ago. VITAL SIGNS: As was mentioned above. Temperature now is 98.7, heart rate 84, respirations 16, blood pressure 118/67, saturation 95% on room air. HEENT: Within normal limits. HEART: Regular rhythm, no murmur. LUNGS: Clear to auscultation. ABDOMEN: Actually soft, mild tenderness in the right upper quadrant. A pigtail drain is in place draining brownish purulent-appearing fluid. The pigtail drain has drained 80 mL since insertion. LOWER EXTREMITIES: No calf tenderness. IMPRESSION: 1. Status post laparoscopic cholecystectomy 4 months ago. 2. Status post drainage of a right upper quadrant abscess by invasive radiology 2 days ago. 3. Leukocytosis. 4. Anemia. 5. Hypokalemia. 6. Obesity. 7. Dyslipidemia. 8. Anxiety. PLAN: This case was discussed with Dr. Dixon, who actually has been involved in the care and surgical treatment of this patient in the past, and now is following the patient in the office as well. So, we decided to continue the antibiotic as has been started by infectious disease colleagues and watch the progress of the disease in the hospital. The consideration is being given to the possibility of need for open drainage of this abscess if the present drain is not going to drain it completely. We will closely follow the patient every day and evaluate the course of the disease very closely. Dictated By: BRADLY CORTES/ARGELIA Conf#: [id number] DID#: [id number] MTDD
[2016-08-30 08:31] VITALS: BP 119/63; RESP 18
--- NOTE | 2016-08-30 11:50 | PN ---
Date/Time of Note Date/Time of Note DATE: 08/30/16 TIME: 11:48 Assessment/Plan VTE Prophylaxis VTE Prophylaxis Intervention: ambulation Lines/Catheters [facility] Peripheral IV Urinary Cath still in place: No Assessment/Plan Chief Complaint/Hosp Course 1. The patient has right upper quadrant abscess, sp drain insertion 2. The patient has leukocytosis. 3. History of cholecystectomy. 4. Anemia. 5. Hypokalemia. 6. Obesity. 7. Dyslipidemia. 8. Anxiety. 9. Insomnia. Problems: Assessment/Plan 1. Continue AB 2. pLAN PER DR Segal Subjective 24 Hr Interval Summary Constitutional: improved, no complaints Cardiovascular: no complaints Gastrointestinal: no complaints Genitourinary: no complaints Exam/Review of Systems Vital Signs Vitals Vital Signs Date Time Temp Pulse Resp B/P Pulse Ox O2 Delivery O2 Flow Rate FiO2 08/30/16 08:31 98.6 83 18 119/63 93 08/28/16 12:55 Room Air 08/28/16 12:10 2.0 Intake and Output 08/29/16 08/29/16 08/30/16 15:00 23:00 07:00 Intake Total 100 ml 1460 ml 1560 ml Output Total 15 ml Balance 100 ml 1445 ml 1560 ml Exam Constitutional: alert, oriented ENMT: nl external ears & nose Neck: supple Respiratory: clear to auscultation Cardiovascular: regular rate and rhythm Gastrointestinal: other ( drain with fluid), soft Results Result Diagram: 08/30/16 0547 08/30/16 0547 Results 24 hrs Laboratory Tests Test 08/30/16 05:47 White Blood Count 14.5 H Red Blood Count 4.31 Hemoglobin 10.8 L Hematocrit 34.2 L Mean Corpuscular Volume 79.4 L Mean Corpuscular Hemoglobin 25.1 L Mean Corpuscular Hemoglobin Concent 31.6 L Red Cell Distribution Width 14.6 H Platelet Count 495 #H Mean Platelet Volume 8.7 Neutrophils % 67.5 Lymphocytes % 23.2 Monocytes % 7.0 Eosinophils % 1.2 Basophils % 0.3 Nucleated Red Blood Cells % 0.0 Neutrophils # 9.8 H Lymphocytes # 3.4 H Monocytes # 1.0 H Eosinophils # 0.2 Basophils # 0.1 Nucleated Red Blood Cells # 0.0 Sodium Level 137 Potassium Level 3.8 Chloride Level 101 Carbon Dioxide Level 28 Anion Gap 12 Blood Urea Nitrogen 3 L Creatinine 0.39 L Glucose Level 93 Calcium Level 8.6 Medications Medications Current Medications Acetaminophen (Tylenol Tab) 650 mg Q6H PRN PO PAIN AND OR ELEVATED TEMP Last administered on 08/29/16 09:01; Admin Dose 650 MG; Start 08/27/16 at 20:00 Gabapentin (Neurontin) 300 mg Q6H PO Last administered on 08/30/16 08:04; Admin Dose 300 MG; Start 08/27/16 at 20:30 Losartan Potassium (Cozaar) 25 mg DAILY@21 PO Last administered on 08/29/16 21 :28; Admin Dose 25 MG; Start 08/27/16 at 21:00 Ondansetron HCl (Zofran Tab) 4 mg Q8H PRN PO NAUSEA AND/OR VOMITING; Start at 20:30 Pantoprazole (Protonix Tab) 40 mg DAILY PO Last administered on 08/30/16 08:04 ; Admin Dose 40 MG; Start 08/28/16 at 09:00 Sertraline HCl 200 mg 200 mg DAILY PO Last administered on 08/30/16 08:04; Admin Dose 200 MG; Start 08/28/16 at 09:00 Potassium Chloride/Sodium Chloride (NS-KCl 20 Meq) 1,000 ml @ 50 mls/hr Q20H IV Last administered on 08/30/16 05:24; Admin Dose 50 MLS/HR; Start 08/27/16 at 23:09 Ondansetron HCl (Zofran Inj) 4 mg Q6H PRN IV NAUSEA AND/OR VOMITING; Start at 23:30 Acetaminophen/ Hydrocodone Bitart ([place] (5/325)) 1 tab Q6H PRN PO MODERATE PAIN LEVEL 4-6 Last administered on 08/28/16 19:59; Admin Dose 1 TAB; Start at 23:30 Docusate Sodium (Colace) 100 mg Q12H PRN PO CONSTIPATION; Start 08/27/16 at 23: 30 Magnesium Hydroxide (Milk Of Mag) 30 ml DAILY PRN PO CONSTIPATION; Start at 23:30 Bisacodyl (Dulcolax) 5 mg DAILY PRN PO CONSTIPATION; Start 08/27/16 at 23:30 Alprazolam (Xanax) 2 mg BID PRN PO ANXIETY Last administered on 08/29/16 22:22 ; Admin Dose 2 MG; Start 08/28/16 at 00:08 Hydromorphone HCl 1 mg 1 mg Q4H PRN IV PAIN Last administered on 08/30/16 09: 20; Admin Dose 1 MG; Start 08/28/16 at 06:00 Meropenem (Merrem 500 Mg/ 100 ml (Pmx)) 100 ml @ 200 mls/hr Q8 IVPB Last administered on 08/30/16 05:23; Admin Dose 200 MLS/HR; Start 08/28/16 at 22:00 DEVONTE LORD August 30, 2016 11:50
--- NOTE | 2016-08-30 14:01 | PN ---
DATE: 08/30/2016 SUBJECTIVE: She feels better today morning. She had had a lot of pain last night, so much after fl ushing the tubing. The nurses state that a lot of fluid from the drain came out and the patient was feeling better. OBJECTIVE: GENERAL: Awake, alert, oriented, comfortable. VITAL SIGNS: Today, temperature 98.6, heart rate 83, respirations 18, blood pressure 119/63, satura tion 93% on room air. ABDOMEN: Soft. The pigtail is draining brownish purulent-looking fluid as was mentioned, from 7 p. m. to 7 a.m. today it has drained 65 mL and now there is about 25 mL drainage. There is no guarding . EXTREMITIES: No calf tenderness. LABORATORY DATA: BUN, creatinine, sodium and potassium normal. WBC 14,500 with 67% segmented, hem oglobin 10.8, hematocrit 34.2. PLAN: 1. Send another culture from the drainage from the pigtail catheter today. 2. Continue current treatment with antibiotics. Dictated By: BRADLY CORTES/ARGELIA Conf#: [id number] DID#: [id number]
[2016-08-30] MEDS: ALPRAZOLAM 0.5 MG TAB PO PRN (14:47)
--- NOTE | 2016-08-30 18:05 | CONS ---
Date/Time of Note Date/Time of Note DATE: 08/30/16 TIME: 18:03 Assessment/Plan Assessment/Plan Chief Complaint/Hosp Course ID PROGRESS NOTE # MERREM + Diflcucan 24H INTERVAL SUMMARY * A/A/O, tells me 64cc drained this am -- prior 40cc, she feels better, no fevers, A/A/O Ingris: 08/28/16-1150 Source: ABD ABSC Microbiology ANAEROBIC CULTURE Preliminary No anaerobe isolated at 48 hours Microbiology GRAM STAIN Final POLYMORPH. LEUKOCYTE 2+ GRAM POS COCCI IN PAIRS 2+ WOUND CULTURE Preliminary Organism 1 ENTEROCOCCUS SPECIES QUANTITY 1+ Organism 2 COAGULASE NEGATIVE STAPH QUANTITY SCANT GROWTH ENT SPS M.I.C. RX --------- --- AMPICILLIN <=2 S PENICILLIN-G 8 S VANCOMYCIN 1 S PHYSICAL EXAMINATION: GENERAL: A/A/O, VSS HEENT: Unremarkable NECK: Trach-> midline CHEST: Equal chest rise bilaterally, without dyspnea on observation HEART: Pulse RRR ABDOMEN: Soft EXTREMITIES: Warm, SKIN: Warm, dry ID ASSESSMENT: [age]yo F admitted with: 1. Systemic inflammatory response syndrome with fevers and leukocytosis secondary to #2. 2. Recurrent intraabdominal abscess status post CT-guided drainage, with fluid cultures growing gram-negative rods. 3. History of cholecystectomy. 4. History of biliary leak, status post stent placement on 07/19/2016. 5. History of post-ERCP pancreatitis. INVASIVES: *PIV ABX ALLERGIES: NKDA CURRENT ABX: # Diflucan + Vanco IV + Unasyn Merrem ID RECOMMENDATIONS: 1. Change Merrem to Unasyn to cover Enterococcus + Vanco IV to cover concern opportunistic Staph (CoNS) 2. Follow final cultures. Problems: Consultation Date/Type/Reason Admit Date/Time August 27, 2016 at 16:10 Initial Consult Date Type of Consultation: ID Exam/Review of Systems Vital Signs Vitals Vital Signs Date Time Temp Pulse Resp B/P Pulse Ox O2 Delivery O2 Flow Rate FiO2 08/30/16 08:31 98.6 83 18 119/63 93 08/28/16 12:55 Room Air 08/28/16 12:10 2.0 Intake and Output 08/29/16 08/29/16 08/30/16 15:00 23:00 07:00 Intake Total 100 ml 1460 ml 1560 ml Output Total 15 ml Balance 100 ml 1445 ml 1560 ml Results Result Diagram: 08/30/16 0547 08/30/16 0547 Results 24 hrs Laboratory Tests Test 08/30/16 05:47 White Blood Count 14.5 H Red Blood Count 4.31 Hemoglobin 10.8 L Hematocrit 34.2 L Mean Corpuscular Volume 79.4 L Mean Corpuscular Hemoglobin 25.1 L Mean Corpuscular Hemoglobin Concent 31.6 L Red Cell Distribution Width 14.6 H Platelet Count 495 #H Mean Platelet Volume 8.7 Neutrophils % 67.5 Lymphocytes % 23.2 Monocytes % 7.0 Eosinophils % 1.2 Basophils % 0.3 Nucleated Red Blood Cells % 0.0 Neutrophils # 9.8 H Lymphocytes # 3.4 H Monocytes # 1.0 H Eosinophils # 0.2 Basophils # 0.1 Nucleated Red Blood Cells # 0.0 Sodium Level 137 Potassium Level 3.8 Chloride Level 101 Carbon Dioxide Level 28 Anion Gap 12 Blood Urea Nitrogen 3 L Creatinine 0.39 L Glucose Level 93 Calcium Level 8.6 Medications Medications Current Medications Acetaminophen (Tylenol Tab) 650 mg Q6H PRN PO PAIN AND OR ELEVATED TEMP Last administered on 08/29/16 09:01; Admin Dose 650 MG; Start 08/27/16 at 20:00 Gabapentin (Neurontin) 300 mg Q6H PO Last administered on 08/30/16 08:04; Admin Dose 300 MG; Start 08/27/16 at 20:30 Losartan Potassium (Cozaar) 25 mg DAILY@21 PO Last administered on 08/29/16 21 :28; Admin Dose 25 MG; Start 08/27/16 at 21:00 Ondansetron HCl (Zofran Tab) 4 mg Q8H PRN PO NAUSEA AND/OR VOMITING; Start at 20:30 Pantoprazole (Protonix Tab) 40 mg DAILY PO Last administered on 08/30/16 08:04 ; Admin Dose 40 MG; Start 08/28/16 at 09:00 Sertraline HCl 200 mg 200 mg DAILY PO Last administered on 08/30/16 08:04; Admin Dose 200 MG; Start 08/28/16 at 09:00 Potassium Chloride/Sodium Chloride (NS-KCl 20 Meq) 1,000 ml @ 50 mls/hr Q20H IV Last administered on 08/30/16 05:24; Admin Dose 50 MLS/HR; Start 08/27/16 at 23:09 Ondansetron HCl (Zofran Inj) 4 mg Q6H PRN IV NAUSEA AND/OR VOMITING; Start at 23:30 Acetaminophen/ Hydrocodone Bitart ([place] (5/325)) 1 tab Q6H PRN PO MODERATE PAIN LEVEL 4-6 Last administered on 08/28/16 19:59; Admin Dose 1 TAB; Start at 23:30 Docusate Sodium (Colace) 100 mg Q12H PRN PO CONSTIPATION; Start 08/27/16 at 23: 30 Magnesium Hydroxide (Milk Of Mag) 30 ml DAILY PRN PO CONSTIPATION; Start at 23:30 Bisacodyl (Dulcolax) 5 mg DAILY PRN PO CONSTIPATION; Start 08/27/16 at 23:30 Alprazolam (Xanax) 2 mg BID PRN PO ANXIETY Last administered on 08/30/16 14:47 ; Admin Dose 2 MG; Start 08/28/16 at 00:08 Hydromorphone HCl 1 mg 1 mg Q4H PRN IV PAIN Last administered on 08/30/16 17: 14; Admin Dose 1 MG; Start 08/28/16 at 06:00 Meropenem (Merrem 500 Mg/ 100 ml (Pmx)) 100 ml @ 200 mls/hr Q8 IVPB Last administered on 08/30/16 13:17; Admin Dose 200 MLS/HR; Start 08/28/16 at 22:00 JOHN CORDERO NP August 30, 2016 18:05
[2016-08-30] MEDS ORDERED: VANCOMYCIN IV PER PHARMACY XX SCH (19:00)
[2016-08-30 20:57] VITALS: BP 136/63; RESP 20
[2016-08-30] MEDS ORDERED: VANCOMYCIN 2 GM in SOD CHLORIDE 0.9% 500 ML IVPB ONE (21:00)
[2016-08-30] MEDS: FLUCONAZOLE 150 MG TAB PO SCH (21:16)
[2016-08-30] MEDS: LOSARTAN 25 MG TAB PO SCH (21:17)
[2016-08-31] MEDS: HYDROmorphONE 1 MG/ML SYG IV PRN ×6 (01:17→21:18)
[2016-08-31] MEDS: AMPICILLIN/SULB 3 GM/NS (PMX) 100 ML IVPB SCH ×5 (01:26→23:11)
[2016-08-31] MEDS: GABAPENTIN 300 MG CAP PO SCH ×4 (02:04→21:20)
[2016-08-31] MEDS: ONDANSETRON 4 MG INJ IV PRN ×3 (02:48→17:18)
[2016-08-31] MEDS: NS + KCL 20 MEQ 1,000 ML IV SCH (05:24)
[2016-08-31 06:23] LABS: ADD SCAN DIFF NO
[2016-08-31 06:41] LABS: BASOPHIL # 0.1 10^3/ul (0.0-0.1); BASOPHILS % 0.4 % (0.0-2.0); EOSINOPHILS # 0.2 10^3/ul (0.0-0.5); EOSINOPHILS % 1.8 % (0.0-7.0); HEMATOCRIT 30.2 % (37.0-47.0); HEMOGLOBIN 9.8 g/dl (12.0-16.0); LYMPHOCYTES # 3.4 10^3/ul (0.8-2.9); MEAN CORPUSCULAR HEMOGLOBIN 25.5 pg (29.0-33.0); MEAN CORPUSCULAR HGB CONC 32.5 g/dl (32.0-37.0); MEAN CORPUSCULAR VOLUME 78.4 fl (82.0-101.0); MEAN PLATELET VOLUME 8.7 fl (7.4-10.4); MONOCYTES % 7.3 % (0.0-11.0); NEUTROPHIL # 8.3 10^3/ul (1.6-7.5); NEUTROPHILS % 63.7 % (39.0-77.0); PLATELET COUNT 507 10^3/UL (140-415); RED BLOOD COUNT 3.85 10^6/ul (4.20-5.40); RED CELL DISTRIBUTION WIDTH 14.5 % (11.5-14.5); WHITE BLOOD COUNT 13.1 10^3/ul (4.8-10.8)
[2016-08-31 06:52] LABS: POTASSIUM 3.9 mmol/L (3.5-5.1)
[2016-08-31 06:54] LABS: CREATININE 0.39 mg/dl (0.44-1.00)
[2016-08-31 06:55] LABS: CALCIUM 8.4 mg/dl (8.4-10.2)
[2016-08-31 08:03] VITALS: BP 101/57; RESP 18
[2016-08-31] MEDS ORDERED: VANCOMYCIN 1.25 GM in SOD CHLORIDE 0.9% 250 ML IVPB SCH (09:00)
[2016-08-31] MEDS: FLUCONAZOLE 150 MG TAB PO SCH (09:27)
[2016-08-31] MEDS: PANTOPRAZOLE (EC) 40 MG TAB PO SCH (09:30)
[2016-08-31] MEDS: SERTRALINE 100 MG TAB PO SCH (09:30)
[2016-08-31] MEDS: ALPRAZOLAM 0.5 MG TAB PO PRN ×2 (10:09→22:52)
--- NOTE | 2016-08-31 14:33 | CONS ---
Date/Time of Note Date/Time of Note DATE: 08/31/16 TIME: 14:28 Assessment/Plan Assessment/Plan Chief Complaint/Hosp Course ID PROGRESS NOTE ABX DAY # Vanco IV + Unasyn + Diflucan MERREM-> DC"d * 08/31/16 0532 08/31/16 0532 24H INTERVAL SUMMARY * Feeling better after 64cc drained yesterday, no fevers * repeat drainage 08/30 (+)Enterococcus0 BODY FLUID CULTURE Preliminary Organism 1 ENTEROCOCCUS SPECIES QUANTITY 2+ * PRIOR DRAINAGE Ingris: 08/28/16-1150 Source: ABD ABSC Microbiology ANAEROBIC CULTURE Preliminary No anaerobe isolated at 72 hours WOUND CULTURE Preliminary Organism 1 ENTEROCOCCUS SPECIES QUANTITY 1+ Organism 2 COAGULASE NEGATIVE STAPH QUANTITY SCANT GROWTH Organism 3 GRAM NEGATIVE REANNA QUANTITY SCANT GROWTH ENT SPS COAG NEG M.I.C. RX M.I.C. RX --------- --- --------- --- AMPICILLIN <=2 S CEFAZOLIN R CIPROFLOXACIN >=8 R CLINDAMYCIN <=0.25 S DOXYCYCLINE S ERYTHROMYCIN <=0.25 S LEVOFLOXACIN >=8 R OXACILLIN >=4 R PENICILLIN-G 8 S >=0.5 R QUINUPRISTIN/DALFOPRISTIN <=0.25 S RIFAMPIN <=0.5 S VANCOMYCIN 1 S <=0.5 S TRIMETHOPRIM/SULFAMETHOXAZOLE <=10 S PHYSICAL EXAMINATION: GENERAL: A/A/O, VSS HEENT: Unremarkable NECK: Trach-> midline CHEST: Equal chest rise bilaterally, without dyspnea on observation HEART: Pulse RRR ABDOMEN: Soft EXTREMITIES: Warm, SKIN: Warm, dry ID ASSESSMENT: [age]yo F admitted with: 1. Systemic inflammatory response syndrome with fevers and leukocytosis secondary to #2. 2. Recurrent intraabdominal abscess status post CT-guided drainage, with fluid cultures growing gram-negative rods. 3. History of cholecystectomy. 4. History of biliary leak, status post stent placement on 07/19/2016. 5. History of post-ERCP pancreatitis. INVASIVES: *PIV ABX ALLERGIES: NKDA CURRENT ABX: # Diflucan + Vanco IV + Unasyn Merrem ID RECOMMENDATIONS: 1. Change Merrem to Unasyn to cover Enterococcus + Vanco IV to cover concern opportunistic Staph (CoNS) 2. Follow final cultures = NEW GNR result growing on 08/28/16 culture . Problems: Consultation Date/Type/Reason Admit Date/Time August 27, 2016 at 16:10 Type of Consultation: ID Exam/Review of Systems Vital Signs Vitals Vital Signs Date Time Temp Pulse Resp B/P Pulse Ox O2 Delivery O2 Flow Rate FiO2 08/31/16 08:03 98.8 77 18 101/57 94 08/28/16 12:55 Room Air 08/28/16 12:10 2.0 Intake and Output 08/30/16 08/30/16 08/31/16 15:00 23:00 07:00 Intake Total 100 ml 1320 ml 1830 ml Output Total 30 ml Balance 100 ml 1290 ml 1830 ml Results Result Diagram: 08/31/16 0532 08/31/16 0532 Results 24 hrs Laboratory Tests Test 08/31/16 05:32 White Blood Count 13.1 H Red Blood Count 3.85 L Hemoglobin 9.8 L Hematocrit 30.2 L Mean Corpuscular Volume 78.4 L Mean Corpuscular Hemoglobin 25.5 L Mean Corpuscular Hemoglobin Concent 32.5 Red Cell Distribution Width 14.5 Platelet Count 507 H Mean Platelet Volume 8.7 Neutrophils % 63.7 Lymphocytes % 26.0 Monocytes % 7.3 Eosinophils % 1.8 Basophils % 0.4 Nucleated Red Blood Cells % 0.0 Neutrophils # 8.3 H Lymphocytes # 3.4 H Monocytes # 1.0 H Eosinophils # 0.2 Basophils # 0.1 Nucleated Red Blood Cells # 0.0 Sodium Level 140 Potassium Level 3.9 Chloride Level 107 Carbon Dioxide Level 29 Anion Gap 8 Blood Urea Nitrogen 3 L Creatinine 0.39 L Glucose Level 86 Calcium Level 8.4 Medications Medications Current Medications Acetaminophen (Tylenol Tab) 650 mg Q6H PRN PO PAIN AND OR ELEVATED TEMP Last administered on 08/29/16 09:01; Admin Dose 650 MG; Start 08/27/16 at 20:00 Gabapentin (Neurontin) 300 mg Q6H PO Last administered on 08/30/16 21:17; Admin Dose 300 MG; Start 08/27/16 at 20:30 Losartan Potassium (Cozaar) 25 mg DAILY@21 PO Last administered on 08/30/16 21 :17; Admin Dose 25 MG; Start 08/27/16 at 21:00 Ondansetron HCl (Zofran Tab) 4 mg Q8H PRN PO NAUSEA AND/OR VOMITING; Start at 20:30 Pantoprazole (Protonix Tab) 40 mg DAILY PO Last administered on 08/31/16 09:30 ; Admin Dose 40 MG; Start 08/28/16 at 09:00 Sertraline HCl 200 mg 200 mg DAILY PO Last administered on 08/31/16 09:30; Admin Dose 200 MG; Start 08/28/16 at 09:00 Potassium Chloride/Sodium Chloride (NS-KCl 20 Meq) 1,000 ml @ 50 mls/hr Q20H IV Last administered on 08/31/16 05:24; Admin Dose 50 MLS/HR; Start 08/27/16 at 23:09 Ondansetron HCl (Zofran Inj) 4 mg Q6H PRN IV NAUSEA AND/OR VOMITING Last administered on 08/31/16 09:22; Admin Dose 4 MG; Start 08/27/16 at 23:30 Acetaminophen/ Hydrocodone Bitart ([place] (5/325)) 1 tab Q6H PRN PO MODERATE PAIN LEVEL 4-6 Last administered on 08/28/16 19:59; Admin Dose 1 TAB; Start at 23:30 Docusate Sodium (Colace) 100 mg Q12H PRN PO CONSTIPATION; Start 08/27/16 at 23: 30 Magnesium Hydroxide (Milk Of Mag) 30 ml DAILY PRN PO CONSTIPATION; Start at 23:30 Bisacodyl (Dulcolax) 5 mg DAILY PRN PO CONSTIPATION; Start 08/27/16 at 23:30 Alprazolam (Xanax) 2 mg BID PRN PO ANXIETY Last administered on 08/31/16 10:09 ; Admin Dose 2 MG; Start 08/28/16 at 00:08 Hydromorphone HCl (Dilaudid) 1 mg Q4H PRN IV PAIN Last administered on 13:12; Admin Dose 1 MG; Start 08/28/16 at 06:00 Fluconazole 150 mg 150 mg DAILY PO Last administered on 08/31/16 09:27; Admin Dose 150 MG; Start 08/30/16 at 20:00; Stop 09/03/16 at 20:00 Ampicillin Sodium/ Sulbactam Sodium 100 ml @ 100 mls/hr Q6 IVPB Last administered on 08/31/16 13:12; Admin Dose 100 MLS/HR; Start 08/31/16 at 00:00 Vancomycin HCl/ Sodium Chloride (Vancocin/NS) 250 ml @ 83.333 mls/ hr Q8H IVPB ; Start 08/31/16 at 17:00 Miscellaneous Information (*Rx Drug Level Order Reminder*) VANCOMYCIN TROUGH AT 0800 ONCE ONCE XX ; Start 09/01/16 at 08:00; Stop 09/01/16 at 08:01 JOHN CORDERO NP August 31, 2016 14:33
--- NOTE | 2016-08-31 14:42 | CONS ---
Date/Time of Note Date/Time of Note DATE: 08/31/16 TIME: 14:39 Assessment/Plan Assessment/Plan Chief Complaint/Hosp Course ASSESSMENT: 1. Systemic inflammatory response syndrome with fevers and leukocytosis secondary to #2. 2. Recurrent intraabdominal abscess status post CT-guided drainage, with fluid cultures growing gram-negative rods. 3. History of cholecystectomy. 4. History of biliary leak, status post stent placement on 07/19/2016. 5. History of post-ERCP pancreatitis. PLAN: 1. continue IR drainage of the intraabdominal abscess. 2. Abx per ID teamcenter consultant. 3. Follow final cultures. 4. repeat CT Thursday to assess for persistence of intraabdominal abscess 5. per discussion with Dr. Georges, if there is presistence of the abscess on repeat CT, may need repeat IR drain vs surgical I&D Problems: Consultation Date/Type/Reason Admit Date/Time August 27, 2016 at 16:10 Initial Consult Date Type of Consultation: GI 24 HR Interval Summary Free Text/Dictation no fever, mild abdominal pain, no n/v Exam/Review of Systems Vital Signs Vitals Vital Signs Date Time Temp Pulse Resp B/P Pulse Ox O2 Delivery O2 Flow Rate FiO2 08/31/16 08:03 98.8 77 18 101/57 94 08/28/16 12:55 Room Air 08/28/16 12:10 2.0 Intake and Output 08/30/16 08/30/16 08/31/16 15:00 23:00 07:00 Intake Total 100 ml 1320 ml 1830 ml Output Total 30 ml Balance 100 ml 1290 ml 1830 ml Exam Constitutional: alert, obese, oriented Psych: nl mood/affect, no complaints Head: atraumatic, normocephalic Eyes: EOMI, nl conjunctiva, nl lids, nl sclera ENMT: mucosa pink and moist, nl external ears & nose, nl lips & teeth, nl nasal mucosa & septum Neck: non-tender, supple Respiratory: clear to auscultation, normal air movement Cardiovascular: nl pulses, regular rate and rhythm Gastrointestinal: bowel sounds, other (I observe Dr. Georges aspirate the drain with minimal drainage.), soft Results Result Diagram: 08/31/16 0532 08/31/16 0532 Results 24 hrs Laboratory Tests Test 08/31/16 05:32 White Blood Count 13.1 H Red Blood Count 3.85 L Hemoglobin 9.8 L Hematocrit 30.2 L Mean Corpuscular Volume 78.4 L Mean Corpuscular Hemoglobin 25.5 L Mean Corpuscular Hemoglobin Concent 32.5 Red Cell Distribution Width 14.5 Platelet Count 507 H Mean Platelet Volume 8.7 Neutrophils % 63.7 Lymphocytes % 26.0 Monocytes % 7.3 Eosinophils % 1.8 Basophils % 0.4 Nucleated Red Blood Cells % 0.0 Neutrophils # 8.3 H Lymphocytes # 3.4 H Monocytes # 1.0 H Eosinophils # 0.2 Basophils # 0.1 Nucleated Red Blood Cells # 0.0 Sodium Level 140 Potassium Level 3.9 Chloride Level 107 Carbon Dioxide Level 29 Anion Gap 8 Blood Urea Nitrogen 3 L Creatinine 0.39 L Glucose Level 86 Calcium Level 8.4 Medications Medications Current Medications Acetaminophen (Tylenol Tab) 650 mg Q6H PRN PO PAIN AND OR ELEVATED TEMP Last administered on 08/29/16 09:01; Admin Dose 650 MG; Start 08/27/16 at 20:00 Gabapentin (Neurontin) 300 mg Q6H PO Last administered on 08/30/16 21:17; Admin Dose 300 MG; Start 08/27/16 at 20:30 Losartan Potassium (Cozaar) 25 mg DAILY@21 PO Last administered on 08/30/16 21 :17; Admin Dose 25 MG; Start 08/27/16 at 21:00 Ondansetron HCl (Zofran Tab) 4 mg Q8H PRN PO NAUSEA AND/OR VOMITING; Start at 20:30 Pantoprazole (Protonix Tab) 40 mg DAILY PO Last administered on 08/31/16 09:30 ; Admin Dose 40 MG; Start 08/28/16 at 09:00 Sertraline HCl 200 mg 200 mg DAILY PO Last administered on 08/31/16 09:30; Admin Dose 200 MG; Start 08/28/16 at 09:00 Potassium Chloride/Sodium Chloride (NS-KCl 20 Meq) 1,000 ml @ 50 mls/hr Q20H IV Last administered on 08/31/16 05:24; Admin Dose 50 MLS/HR; Start 08/27/16 at 23:09 Ondansetron HCl (Zofran Inj) 4 mg Q6H PRN IV NAUSEA AND/OR VOMITING Last administered on 08/31/16 09:22; Admin Dose 4 MG; Start 08/27/16 at 23:30 Acetaminophen/ Hydrocodone Bitart ([place] (5/325)) 1 tab Q6H PRN PO MODERATE PAIN LEVEL 4-6 Last administered on 08/28/16 19:59; Admin Dose 1 TAB; Start at 23:30 Docusate Sodium (Colace) 100 mg Q12H PRN PO CONSTIPATION; Start 08/27/16 at 23: 30 Magnesium Hydroxide (Milk Of Mag) 30 ml DAILY PRN PO CONSTIPATION; Start at 23:30 Bisacodyl (Dulcolax) 5 mg DAILY PRN PO CONSTIPATION; Start 08/27/16 at 23:30 Alprazolam (Xanax) 2 mg BID PRN PO ANXIETY Last administered on 08/31/16 10:09 ; Admin Dose 2 MG; Start 08/28/16 at 00:08 Hydromorphone HCl (Dilaudid) 1 mg Q4H PRN IV PAIN Last administered on 13:12; Admin Dose 1 MG; Start 08/28/16 at 06:00 Fluconazole 150 mg 150 mg DAILY PO Last administered on 08/31/16 09:27; Admin Dose 150 MG; Start 08/30/16 at 20:00; Stop 09/03/16 at 20:00 Ampicillin Sodium/ Sulbactam Sodium 100 ml @ 100 mls/hr Q6 IVPB Last administered on 08/31/16 13:12; Admin Dose 100 MLS/HR; Start 08/31/16 at 00:00 Vancomycin HCl/ Sodium Chloride (Vancocin/NS) 250 ml @ 83.333 mls/ hr Q8H IVPB ; Start 08/31/16 at 17:00 Miscellaneous Information (*Rx Drug Level Order Reminder*) VANCOMYCIN TROUGH AT 0800 ONCE ONCE XX ; Start 09/01/16 at 08:00; Stop 09/01/16 at 08:01 RUBEN GUARDADO MD August 31, 2016 14:42
[2016-08-31] MEDS: VANCOMYCIN 1.25 GM in SOD CHLORIDE 0.9% 250 ML IVPB SCH (16:37)
--- NOTE | 2016-08-31 16:45 | PN ---
Date/Time of Note Date/Time of Note DATE: 08/31/16 TIME: 16:44 Assessment/Plan VTE Prophylaxis VTE Prophylaxis Intervention: other Lines/Catheters IV Catheter Type (from Nrs): Peripheral IV Urinary Cath still in place: No Assessment/Plan Chief Complaint/Hosp Course IMPRESSION: 1. The patient has right upper quadrant abscess, possibly biloma. 2. The patient has leukocytosis. 3. History of cholecystectomy. 4. Anemia. 5. Hypokalemia. 6. Obesity. 7. Dyslipidemia. 8. Anxiety. 9. Insomnia. planantibiotic PER GI AND ID Problems: Subjective 24 Hr Interval Summary Gastrointestinal: pain (BETTER) Exam/Review of Systems Vital Signs Vitals Vital Signs Date Time Temp Pulse Resp B/P Pulse Ox O2 Delivery O2 Flow Rate FiO2 08/31/16 08:03 98.8 77 18 101/57 94 08/28/16 12:55 Room Air 08/28/16 12:10 2.0 Intake and Output 08/30/16 08/30/16 08/31/16 15:00 23:00 07:00 Intake Total 100 ml 1320 ml 1830 ml Output Total 30 ml Balance 100 ml 1290 ml 1830 ml Exam Neck: supple Respiratory: clear to auscultation Cardiovascular: regular rate and rhythm Gastrointestinal: bowel sounds (+), soft Results Result Diagram: 08/31/16 0532 08/31/16 0532 Results 24 hrs Laboratory Tests Test 08/31/16 05:32 White Blood Count 13.1 H Red Blood Count 3.85 L Hemoglobin 9.8 L Hematocrit 30.2 L Mean Corpuscular Volume 78.4 L Mean Corpuscular Hemoglobin 25.5 L Mean Corpuscular Hemoglobin Concent 32.5 Red Cell Distribution Width 14.5 Platelet Count 507 H Mean Platelet Volume 8.7 Neutrophils % 63.7 Lymphocytes % 26.0 Monocytes % 7.3 Eosinophils % 1.8 Basophils % 0.4 Nucleated Red Blood Cells % 0.0 Neutrophils # 8.3 H Lymphocytes # 3.4 H Monocytes # 1.0 H Eosinophils # 0.2 Basophils # 0.1 Nucleated Red Blood Cells # 0.0 Sodium Level 140 Potassium Level 3.9 Chloride Level 107 Carbon Dioxide Level 29 Anion Gap 8 Blood Urea Nitrogen 3 L Creatinine 0.39 L Glucose Level 86 Calcium Level 8.4 Medications Medications Current Medications Acetaminophen (Tylenol Tab) 650 mg Q6H PRN PO PAIN AND OR ELEVATED TEMP Last administered on 08/29/16 09:01; Admin Dose 650 MG; Start 08/27/16 at 20:00 Gabapentin (Neurontin) 300 mg Q6H PO Last administered on 08/30/16 21:17; Admin Dose 300 MG; Start 08/27/16 at 20:30 Losartan Potassium (Cozaar) 25 mg DAILY@21 PO Last administered on 08/30/16 21 :17; Admin Dose 25 MG; Start 08/27/16 at 21:00 Ondansetron HCl (Zofran Tab) 4 mg Q8H PRN PO NAUSEA AND/OR VOMITING; Start at 20:30 Pantoprazole (Protonix Tab) 40 mg DAILY PO Last administered on 08/31/16 09:30 ; Admin Dose 40 MG; Start 08/28/16 at 09:00 Sertraline HCl 200 mg 200 mg DAILY PO Last administered on 08/31/16 09:30; Admin Dose 200 MG; Start 08/28/16 at 09:00 Potassium Chloride/Sodium Chloride (NS-KCl 20 Meq) 1,000 ml @ 50 mls/hr Q20H IV Last administered on 08/31/16 05:24; Admin Dose 50 MLS/HR; Start 08/27/16 at 23:09 Ondansetron HCl (Zofran Inj) 4 mg Q6H PRN IV NAUSEA AND/OR VOMITING Last administered on 08/31/16 09:22; Admin Dose 4 MG; Start 08/27/16 at 23:30 Acetaminophen/ Hydrocodone Bitart ([place] (5/325)) 1 tab Q6H PRN PO MODERATE PAIN LEVEL 4-6 Last administered on 08/28/16 19:59; Admin Dose 1 TAB; Start at 23:30 Docusate Sodium (Colace) 100 mg Q12H PRN PO CONSTIPATION; Start 08/27/16 at 23: 30 Magnesium Hydroxide (Milk Of Mag) 30 ml DAILY PRN PO CONSTIPATION; Start at 23:30 Bisacodyl (Dulcolax) 5 mg DAILY PRN PO CONSTIPATION; Start 08/27/16 at 23:30 Alprazolam (Xanax) 2 mg BID PRN PO ANXIETY Last administered on 08/31/16 10:09 ; Admin Dose 2 MG; Start 08/28/16 at 00:08 Hydromorphone HCl (Dilaudid) 1 mg Q4H PRN IV PAIN Last administered on 13:12; Admin Dose 1 MG; Start 08/28/16 at 06:00 Fluconazole 150 mg 150 mg DAILY PO Last administered on 08/31/16 09:27; Admin Dose 150 MG; Start 08/30/16 at 20:00; Stop 09/03/16 at 20:00 Ampicillin Sodium/ Sulbactam Sodium 100 ml @ 100 mls/hr Q6 IVPB Last administered on 08/31/16 13:12; Admin Dose 100 MLS/HR; Start 08/31/16 at 00:00 Vancomycin HCl/ Sodium Chloride (Vancocin/NS) 250 ml @ 83.333 mls/ hr Q8H IVPB Last administered on 08/31/16 16:37; Admin Dose 83.333 MLS/HR; Start at 17:00 Miscellaneous Information (*Rx Drug Level Order Reminder*) VANCOMYCIN TROUGH AT 0800 ONCE ONCE XX ; Start 09/01/16 at 08:00; Stop 09/01/16 at 08:01 JEB VAZQUEZ MD August 31, 2016 16:45
[2016-08-31 20:09] VITALS: BP 121/56; RESP 19
[2016-08-31] MEDS: LOSARTAN 25 MG TAB PO SCH (21:20)
[2016-09-01] MEDS: VANCOMYCIN 1.25 GM in SOD CHLORIDE 0.9% 250 ML IVPB SCH ×3 (00:13→17:15)
[2016-09-01] MEDS: HYDROmorphONE 1 MG/ML SYG IV PRN ×6 (01:15→21:15)
[2016-09-01] MEDS: GABAPENTIN 300 MG CAP PO SCH ×4 (02:02→20:47)
[2016-09-01] MEDS: NS + KCL 20 MEQ 1,000 ML IV SCH ×2 (03:09→23:09)
[2016-09-01] MEDS: AMPICILLIN/SULB 3 GM/NS (PMX) 100 ML IVPB SCH ×3 (05:15→20:47)
[2016-09-01 06:25] LABS: ADD SCAN DIFF NO
[2016-09-01 06:39] LABS: BASOPHIL # 0.1 10^3/ul (0.0-0.1); BASOPHILS % 0.4 % (0.0-2.0); EOSINOPHILS # 0.3 10^3/ul (0.0-0.5); HEMATOCRIT 31.8 % (37.0-47.0); LYMPHOCYTES # 3.4 10^3/ul (0.8-2.9); MEAN CORPUSCULAR HEMOGLOBIN 24.8 pg (29.0-33.0); MEAN CORPUSCULAR HGB CONC 31.4 g/dl (32.0-37.0); MEAN CORPUSCULAR VOLUME 78.9 fl (82.0-101.0); MEAN PLATELET VOLUME 8.6 fl (7.4-10.4); MONOCYTES % 7.7 % (0.0-11.0); NEUTROPHIL # 7.7 10^3/ul (1.6-7.5); NEUTROPHILS % 61.9 % (39.0-77.0); PLATELET COUNT 497 10^3/UL (140-415); RED BLOOD COUNT 4.03 10^6/ul (4.20-5.40); RED CELL DISTRIBUTION WIDTH 14.6 % (11.5-14.5); WHITE BLOOD COUNT 12.5 10^3/ul (4.8-10.8)
[2016-09-01 07:45] VITALS: BP 109/59; RESP 18
[2016-09-01] MEDS: SERTRALINE 100 MG TAB PO SCH (08:26)
[2016-09-01] MEDS: PANTOPRAZOLE (EC) 40 MG TAB PO SCH (08:26)
[2016-09-01] MEDS: FLUCONAZOLE 150 MG TAB PO SCH (08:26)
[2016-09-01] MEDS: ONDANSETRON 4 MG INJ IV PRN ×2 (08:34→18:55)
--- NOTE | 2016-09-01 12:05 | PN ---
Date/Time of Note Date/Time of Note DATE: 09/01/16 TIME: 12:03 Assessment/Plan VTE Prophylaxis VTE Prophylaxis Intervention: ambulation Lines/Catheters IV Catheter Type (from Nrs): Peripheral IV Urinary Cath still in place: No Assessment/Plan Chief Complaint/Hosp Course 1. The patient has right upper quadrant abscess, sp drain insertion 2. leukocytosis, better. 3. History of cholecystectomy. 4. Anemia. 5. Hypokalemia. 6. Obesity. 7. Dyslipidemia. 8. Anxiety. 9. Insomnia. Problems: Assessment/Plan 1. Continue antibiotics 2. Continue IV fluids 3. Cont pain meds Subjective 24 Hr Interval Summary Constitutional: improved, no complaints Cardiovascular: no complaints Gastrointestinal: other (pain) Musculoskeletal: no complaints Exam/Review of Systems Vital Signs Vitals Vital Signs Date Time Temp Pulse Resp B/P Pulse Ox O2 Delivery O2 Flow Rate FiO2 09/01/16 07:45 98.6 72 18 109/59 91 08/28/16 12:55 Room Air 08/28/16 12:10 2.0 Intake and Output 08/31/16 08/31/16 09/01/16 15:00 23:00 07:00 Intake Total 300 ml 1350 ml 1650 ml Output Total 0 ml 0 ml Balance 300 ml 1350 ml 1650 ml Exam Constitutional: alert, oriented, well developed Head: normocephalic Respiratory: clear to auscultation Cardiovascular: regular rate and rhythm Gastrointestinal: other, soft Results Result Diagram: 09/01/16 0536 08/31/16 0532 Results 24 hrs Laboratory Tests Test 09/01/16 05:36 09/01/16 07:50 White Blood Count 12.5 H Red Blood Count 4.03 L Hemoglobin 10.0 L Hematocrit 31.8 L Mean Corpuscular Volume 78.9 L Mean Corpuscular Hemoglobin 24.8 L Mean Corpuscular Hemoglobin Concent 31.4 L Red Cell Distribution Width 14.6 H Platelet Count 497 H Mean Platelet Volume 8.6 Neutrophils % 61.9 Lymphocytes % 27.0 Monocytes % 7.7 Eosinophils % 2.0 Basophils % 0.4 Nucleated Red Blood Cells % 0.0 Neutrophils # 7.7 H Lymphocytes # 3.4 H Monocytes # 1.0 H Eosinophils # 0.3 Basophils # 0.1 Nucleated Red Blood Cells # 0.0 Vancomycin Level Trough 13.2 Medications Medications Current Medications Acetaminophen (Tylenol Tab) 650 mg Q6H PRN PO PAIN AND OR ELEVATED TEMP Last administered on 08/29/16 09:01; Admin Dose 650 MG; Start 08/27/16 at 20:00 Gabapentin (Neurontin) 300 mg Q6H PO Last administered on 09/01/16 09:28; Admin Dose 300 MG; Start 08/27/16 at 20:30 Losartan Potassium (Cozaar) 25 mg DAILY@21 PO Last administered on 08/31/16 21 :20; Admin Dose 25 MG; Start 08/27/16 at 21:00 Ondansetron HCl (Zofran Tab) 4 mg Q8H PRN PO NAUSEA AND/OR VOMITING; Start at 20:30 Pantoprazole (Protonix Tab) 40 mg DAILY PO Last administered on 09/01/16 08:26 ; Admin Dose 40 MG; Start 08/28/16 at 09:00 Sertraline HCl 200 mg 200 mg DAILY PO Last administered on 09/01/16 08:26; Admin Dose 200 MG; Start 08/28/16 at 09:00 Potassium Chloride/Sodium Chloride (NS-KCl 20 Meq) 1,000 ml @ 50 mls/hr Q20H IV Last administered on 08/31/16 05:24; Admin Dose 50 MLS/HR; Start 08/27/16 at 23:09 Ondansetron HCl (Zofran Inj) 4 mg Q6H PRN IV NAUSEA AND/OR VOMITING Last administered on 09/01/16 08:34; Admin Dose 4 MG; Start 08/27/16 at 23:30 Acetaminophen/ Hydrocodone Bitart ([place] (5/325)) 1 tab Q6H PRN PO MODERATE PAIN LEVEL 4-6 Last administered on 08/28/16 19:59; Admin Dose 1 TAB; Start at 23:30 Docusate Sodium (Colace) 100 mg Q12H PRN PO CONSTIPATION; Start 08/27/16 at 23: 30 Magnesium Hydroxide (Milk Of Mag) 30 ml DAILY PRN PO CONSTIPATION; Start at 23:30 Bisacodyl (Dulcolax) 5 mg DAILY PRN PO CONSTIPATION; Start 08/27/16 at 23:30 Alprazolam (Xanax) 2 mg BID PRN PO ANXIETY Last administered on 08/31/16 22:52 ; Admin Dose 2 MG; Start 08/28/16 at 00:08 Hydromorphone HCl (Dilaudid) 1 mg Q4H PRN IV PAIN Last administered on 09:29; Admin Dose 1 MG; Start 08/28/16 at 06:00 Fluconazole 150 mg 150 mg DAILY PO Last administered on 09/01/16 08:26; Admin Dose 150 MG; Start 08/30/16 at 20:00; Stop 09/03/16 at 20:00 Ampicillin Sodium/ Sulbactam Sodium 100 ml @ 100 mls/hr Q6 IVPB Last administered on 09/01/16 05:15; Admin Dose 100 MLS/HR; Start 08/31/16 at 00:00 Vancomycin HCl/ Sodium Chloride (Vancocin/NS) 250 ml @ 83.333 mls/ hr Q8H IVPB Last administered on 09/01/16 10:09; Admin Dose 83.333 MLS/HR; Start at 17:00 DEVONTE LORD September 01, 2016 12:05
--- NOTE | 2016-09-01 12:56 | CONS ---
Date/Time of Note Date/Time of Note DATE: 09/01/16 TIME: 12:55 Assessment/Plan Assessment/Plan Chief Complaint/Hosp Course ASSESSMENT: 1. Systemic inflammatory response syndrome with fevers and leukocytosis secondary to #2. 2. Recurrent intraabdominal abscess status post CT-guided drainage, with fluid cultures growing gram-negative rods. 3. History of cholecystectomy. 4. History of biliary leak, status post stent placement on 07/19/2016. 5. History of post-ERCP pancreatitis. PLAN: 1. continue IR drainage of the intraabdominal abscess. 2. Abx per ID bank consultant. 3. Follow final cultures. 4. repeat CT Thursday to assess for persistence of intraabdominal abscess 5. per discussion with Dr. Georges, if there is presistence of the abscess on repeat CT, may need repeat IR drain vs surgical I&D 6. Dr. Blair to resume care of this patient tomorrow. Problems: Consultation Date/Type/Reason Admit Date/Time August 27, 2016 at 16:10 Type of Consultation: GI 24 HR Interval Summary Free Text/Dictation persistent RUQ pain, no f/c, no n/v Exam/Review of Systems Vital Signs Vitals Vital Signs Date Time Temp Pulse Resp B/P Pulse Ox O2 Delivery O2 Flow Rate FiO2 09/01/16 07:45 98.6 72 18 109/59 91 08/28/16 12:55 Room Air 08/28/16 12:10 2.0 Intake and Output 08/31/16 08/31/16 09/01/16 15:00 23:00 07:00 Intake Total 300 ml 1350 ml 1650 ml Output Total 0 ml 0 ml Balance 300 ml 1350 ml 1650 ml Exam Constitutional: alert, obese, oriented Psych: nl mood/affect, no complaints Head: atraumatic, normocephalic Eyes: EOMI, nl conjunctiva, nl lids, nl sclera ENMT: mucosa pink and moist, nl external ears & nose, nl lips & teeth, nl nasal mucosa & septum Neck: non-tender, supple Respiratory: clear to auscultation, normal air movement Cardiovascular: nl pulses, regular rate and rhythm Gastrointestinal: bowel sounds, soft Results Result Diagram: 09/01/16 0536 08/31/16 0532 Results 24 hrs Laboratory Tests Test 09/01/16 05:36 09/01/16 07:50 White Blood Count 12.5 H Red Blood Count 4.03 L Hemoglobin 10.0 L Hematocrit 31.8 L Mean Corpuscular Volume 78.9 L Mean Corpuscular Hemoglobin 24.8 L Mean Corpuscular Hemoglobin Concent 31.4 L Red Cell Distribution Width 14.6 H Platelet Count 497 H Mean Platelet Volume 8.6 Neutrophils % 61.9 Lymphocytes % 27.0 Monocytes % 7.7 Eosinophils % 2.0 Basophils % 0.4 Nucleated Red Blood Cells % 0.0 Neutrophils # 7.7 H Lymphocytes # 3.4 H Monocytes # 1.0 H Eosinophils # 0.3 Basophils # 0.1 Nucleated Red Blood Cells # 0.0 Vancomycin Level Trough 13.2 Medications Medications Current Medications Acetaminophen (Tylenol Tab) 650 mg Q6H PRN PO PAIN AND OR ELEVATED TEMP Last administered on 08/29/16 09:01; Admin Dose 650 MG; Start 08/27/16 at 20:00 Gabapentin (Neurontin) 300 mg Q6H PO Last administered on 09/01/16 09:28; Admin Dose 300 MG; Start 08/27/16 at 20:30 Losartan Potassium (Cozaar) 25 mg DAILY@21 PO Last administered on 08/31/16 21 :20; Admin Dose 25 MG; Start 08/27/16 at 21:00 Ondansetron HCl (Zofran Tab) 4 mg Q8H PRN PO NAUSEA AND/OR VOMITING; Start at 20:30 Pantoprazole (Protonix Tab) 40 mg DAILY PO Last administered on 09/01/16 08:26 ; Admin Dose 40 MG; Start 08/28/16 at 09:00 Sertraline HCl 200 mg 200 mg DAILY PO Last administered on 09/01/16 08:26; Admin Dose 200 MG; Start 08/28/16 at 09:00 Potassium Chloride/Sodium Chloride (NS-KCl 20 Meq) 1,000 ml @ 50 mls/hr Q20H IV Last administered on 08/31/16 05:24; Admin Dose 50 MLS/HR; Start 08/27/16 at 23:09 Ondansetron HCl (Zofran Inj) 4 mg Q6H PRN IV NAUSEA AND/OR VOMITING Last administered on 09/01/16 08:34; Admin Dose 4 MG; Start 08/27/16 at 23:30 Acetaminophen/ Hydrocodone Bitart ([place] (5/325)) 1 tab Q6H PRN PO MODERATE PAIN LEVEL 4-6 Last administered on 08/28/16 19:59; Admin Dose 1 TAB; Start at 23:30 Docusate Sodium (Colace) 100 mg Q12H PRN PO CONSTIPATION; Start 08/27/16 at 23: 30 Magnesium Hydroxide (Milk Of Mag) 30 ml DAILY PRN PO CONSTIPATION; Start at 23:30 Bisacodyl (Dulcolax) 5 mg DAILY PRN PO CONSTIPATION; Start 08/27/16 at 23:30 Alprazolam (Xanax) 2 mg BID PRN PO ANXIETY Last administered on 08/31/16 22:52 ; Admin Dose 2 MG; Start 08/28/16 at 00:08 Hydromorphone HCl (Dilaudid) 1 mg Q4H PRN IV PAIN Last administered on 09:29; Admin Dose 1 MG; Start 08/28/16 at 06:00 Fluconazole 150 mg 150 mg DAILY PO Last administered on 09/01/16 08:26; Admin Dose 150 MG; Start 08/30/16 at 20:00; Stop 09/03/16 at 20:00 Ampicillin Sodium/ Sulbactam Sodium 100 ml @ 100 mls/hr Q6 IVPB Last administered on 09/01/16 05:15; Admin Dose 100 MLS/HR; Start 08/31/16 at 00:00 Vancomycin HCl/ Sodium Chloride (Vancocin/NS) 250 ml @ 83.333 mls/ hr Q8H IVPB Last administered on 09/01/16 10:09; Admin Dose 83.333 MLS/HR; Start at 17:00 RUBEN GUARDADO MD September 01, 2016 12:56
[2016-09-01] MEDS: ALPRAZOLAM 0.5 MG TAB PO PRN (14:25)
[2016-09-01] MEDS ORDERED: AMPICILLIN/SULB 3 GM/NS (PMX) 100 ML IVPB SCH (16:00)
--- NOTE | 2016-09-01 17:08 | CONS ---
Date/Time of Note Date/Time of Note DATE: 09/01/16 TIME: 17:06 Assessment/Plan Assessment/Plan Chief Complaint/Hosp Course ID PROGRESS NOTE ABX DAY # Vanco IV + Unasyn + Diflucan MERREM-> DC"d 24H INTERVAL SUMMARY * Stable, no fevers WOUND CULTURE Preliminary Organism 1 ENTEROCOCCUS SPECIES QUANTITY 1+ Organism 2 COAGULASE NEGATIVE STAPH QUANTITY SCANT GROWTH Organism 3 GRAM NEGATIVE REANNA QUANTITY SCANT GROWTH ENT SPS COAG NEG M.I.C. RX M.I.C. RX --------- --- --------- --- AMPICILLIN <=2 S CEFAZOLIN R CIPROFLOXACIN >=8 R CLINDAMYCIN <=0.25 S DOXYCYCLINE S ERYTHROMYCIN <=0.25 S LEVOFLOXACIN >=8 R OXACILLIN >=4 R PENICILLIN-G 8 S >=0.5 R QUINUPRISTIN/DALFOPRISTIN <=0.25 S RIFAMPIN <=0.5 S VANCOMYCIN 1 S <=0.5 S TRIMETHOPRIM/SULFAMETHOXAZOLE <=10 S PHYSICAL EXAMINATION: GENERAL: A/A/O, VSS HEENT: Unremarkable NECK: Trach-> midline CHEST: Equal chest rise bilaterally, without dyspnea on observation HEART: Pulse RRR ABDOMEN: Soft EXTREMITIES: Warm, SKIN: Warm, dry ID ASSESSMENT: [age]yo F admitted with: 1. Systemic inflammatory response syndrome with fevers and leukocytosis secondary to #2. 2. Recurrent intraabdominal abscess status post CT-guided drainage, with fluid cultures growing gram-negative rods. 3. History of cholecystectomy. 4. History of biliary leak, status post stent placement on 07/19/2016. 5. History of post-ERCP pancreatitis. INVASIVES: *PIV ABX ALLERGIES: NKDA CURRENT ABX: # Diflucan + Vanco IV + Unasyn Merrem ID RECOMMENDATIONS: 1. Continue ABX: Unasyn to cover Enterococcus + Anaerobes + Vanco IV to cover concern opportunistic Staph (CoNS) 2. Per notes, possible repeat CT this week . Problems: Consultation Date/Type/Reason Admit Date/Time August 27, 2016 at 16:10 Type of Consultation: ID Exam/Review of Systems Vital Signs Vitals Vital Signs Date Time Temp Pulse Resp B/P Pulse Ox O2 Delivery O2 Flow Rate FiO2 09/01/16 07:45 98.6 72 18 109/59 91 08/28/16 12:55 Room Air 08/28/16 12:10 2.0 Intake and Output 08/31/16 08/31/16 09/01/16 15:00 23:00 07:00 Intake Total 300 ml 1350 ml 1650 ml Output Total 0 ml 0 ml Balance 300 ml 1350 ml 1650 ml Results Result Diagram: 09/01/16 0536 08/31/16 0532 Results 24 hrs Laboratory Tests Test 09/01/16 05:36 09/01/16 07:50 White Blood Count 12.5 H Red Blood Count 4.03 L Hemoglobin 10.0 L Hematocrit 31.8 L Mean Corpuscular Volume 78.9 L Mean Corpuscular Hemoglobin 24.8 L Mean Corpuscular Hemoglobin Concent 31.4 L Red Cell Distribution Width 14.6 H Platelet Count 497 H Mean Platelet Volume 8.6 Neutrophils % 61.9 Lymphocytes % 27.0 Monocytes % 7.7 Eosinophils % 2.0 Basophils % 0.4 Nucleated Red Blood Cells % 0.0 Neutrophils # 7.7 H Lymphocytes # 3.4 H Monocytes # 1.0 H Eosinophils # 0.3 Basophils # 0.1 Nucleated Red Blood Cells # 0.0 Vancomycin Level Trough 13.2 Medications Medications Current Medications Acetaminophen (Tylenol Tab) 650 mg Q6H PRN PO PAIN AND OR ELEVATED TEMP Last administered on 08/29/16 09:01; Admin Dose 650 MG; Start 08/27/16 at 20:00 Gabapentin (Neurontin) 300 mg Q6H PO Last administered on 09/01/16 14:25; Admin Dose 300 MG; Start 08/27/16 at 20:30 Losartan Potassium (Cozaar) 25 mg DAILY@21 PO Last administered on 08/31/16 21 :20; Admin Dose 25 MG; Start 08/27/16 at 21:00 Ondansetron HCl (Zofran Tab) 4 mg Q8H PRN PO NAUSEA AND/OR VOMITING; Start at 20:30 Pantoprazole (Protonix Tab) 40 mg DAILY PO Last administered on 09/01/16 08:26 ; Admin Dose 40 MG; Start 08/28/16 at 09:00 Sertraline HCl 200 mg 200 mg DAILY PO Last administered on 09/01/16 08:26; Admin Dose 200 MG; Start 08/28/16 at 09:00 Potassium Chloride/Sodium Chloride (NS-KCl 20 Meq) 1,000 ml @ 50 mls/hr Q20H IV Last administered on 08/31/16 05:24; Admin Dose 50 MLS/HR; Start 08/27/16 at 23:09 Ondansetron HCl (Zofran Inj) 4 mg Q6H PRN IV NAUSEA AND/OR VOMITING Last administered on 09/01/16 08:34; Admin Dose 4 MG; Start 08/27/16 at 23:30 Acetaminophen/ Hydrocodone Bitart ([place] (5/325)) 1 tab Q6H PRN PO MODERATE PAIN LEVEL 4-6 Last administered on 08/28/16 19:59; Admin Dose 1 TAB; Start at 23:30 Docusate Sodium (Colace) 100 mg Q12H PRN PO CONSTIPATION; Start 08/27/16 at 23: 30 Magnesium Hydroxide (Milk Of Mag) 30 ml DAILY PRN PO CONSTIPATION; Start at 23:30 Bisacodyl (Dulcolax) 5 mg DAILY PRN PO CONSTIPATION; Start 08/27/16 at 23:30 Alprazolam (Xanax) 2 mg BID PRN PO ANXIETY Last administered on 09/01/16 14:25 ; Admin Dose 2 MG; Start 08/28/16 at 00:08 Hydromorphone HCl (Dilaudid) 1 mg Q4H PRN IV PAIN Last administered on 13:18; Admin Dose 1 MG; Start 08/28/16 at 06:00 Fluconazole 150 mg 150 mg DAILY PO Last administered on 09/01/16 08:26; Admin Dose 150 MG; Start 08/30/16 at 20:00; Stop 09/03/16 at 20:00 Vancomycin HCl 1.25 gm/Sodium Chloride 250 ml @ 83.333 mls/ hr Q8H IVPB Last administered on 09/01/16t 10:09; Admin Dose 83.333 MLS/HR; Start 08/31/16 at 17: 00 Ampicillin Sodium/ Sulbactam Sodium (Unasyn 3gm/NS (Pmx)) 100 ml @ 100 mls/hr Q6H IVPB ; Start 09/01/16 at 20:00 JOHN OCRDERO NP September 01, 2016 17:08
--- NOTE | 2016-09-01 17:16 | CONS ---
Date/Time of Note Date/Time of Note DATE: 09/01/16 TIME: 17:09 Assessment/Plan Assessment/Plan Chief Complaint/Hosp Course ID PROGRESS NOTE ABX DAY =>CIPRO + Unasyn + Diflucan # Vanco IV -> DC MERREM-> DC"d 24H INTERVAL SUMMARY * Stable, no fevers WOUND CULTURE Preliminary Organism 1 ENTEROCOCCUS SPECIES QUANTITY 1+ Organism 2 COAGULASE NEGATIVE STAPH QUANTITY SCANT GROWTH Organism 3 ESCHERICHIA COLI QUANTITY SCANT GROWTH TRIMETHOPRIM/SULFAMETHOXAZOLE <=10 S PHYSICAL EXAMINATION: GENERAL: A/A/O, VSS HEENT: Unremarkable NECK: Trach-> midline CHEST: Equal chest rise bilaterally, without dyspnea on observation HEART: Pulse RRR ABDOMEN: Soft EXTREMITIES: Warm, SKIN: Warm, dry ID ASSESSMENT: [age]yo F admitted with: 1. Systemic inflammatory response syndrome with fevers and leukocytosis secondary to #2. 2. Recurrent intraabdominal abscess status post CT-guided drainage, with fluid cultures growing gram-negative rods. 3. History of cholecystectomy. 4. History of biliary leak, status post stent placement on 07/19/2016. 5. History of post-ERCP pancreatitis. INVASIVES: *PIV ABX ALLERGIES: NKDA CURRENT ABX: =>CIPRO + Unasyn + Diflucan # Vanco IV -> DC MERREM-> DC"d ID RECOMMENDATIONS: 1. Unasyn to cover Enterococcus + Anaerobes 2. CIPRO =>will cover GNR E.Coli + 3. Vanco IV -> opportunistic Staph (CoNS) 4. Follow surgery recs: possible repeat CT this week . . Problems: Consultation Date/Type/Reason Admit Date/Time August 27, 2016 at 16:10 Type of Consultation: ID Exam/Review of Systems Vital Signs Vitals Vital Signs Date Time Temp Pulse Resp B/P Pulse Ox O2 Delivery O2 Flow Rate FiO2 09/01/16 07:45 98.6 72 18 109/59 91 08/28/16 12:55 Room Air 08/28/16 12:10 2.0 Intake and Output 08/31/16 08/31/16 09/01/16 15:00 23:00 07:00 Intake Total 300 ml 1350 ml 1650 ml Output Total 0 ml 0 ml Balance 300 ml 1350 ml 1650 ml Results Result Diagram: 09/01/16 0536 08/31/16 0532 Results 24 hrs Laboratory Tests Test 09/01/16 05:36 09/01/16 07:50 White Blood Count 12.5 H Red Blood Count 4.03 L Hemoglobin 10.0 L Hematocrit 31.8 L Mean Corpuscular Volume 78.9 L Mean Corpuscular Hemoglobin 24.8 L Mean Corpuscular Hemoglobin Concent 31.4 L Red Cell Distribution Width 14.6 H Platelet Count 497 H Mean Platelet Volume 8.6 Neutrophils % 61.9 Lymphocytes % 27.0 Monocytes % 7.7 Eosinophils % 2.0 Basophils % 0.4 Nucleated Red Blood Cells % 0.0 Neutrophils # 7.7 H Lymphocytes # 3.4 H Monocytes # 1.0 H Eosinophils # 0.3 Basophils # 0.1 Nucleated Red Blood Cells # 0.0 Vancomycin Level Trough 13.2 Medications Medications Current Medications Acetaminophen (Tylenol Tab) 650 mg Q6H PRN PO PAIN AND OR ELEVATED TEMP Last administered on 08/29/16 09:01; Admin Dose 650 MG; Start 08/27/16 at 20:00 Gabapentin (Neurontin) 300 mg Q6H PO Last administered on 09/01/16 14:25; Admin Dose 300 MG; Start 08/27/16 at 20:30 Losartan Potassium (Cozaar) 25 mg DAILY@21 PO Last administered on 08/31/16 21 :20; Admin Dose 25 MG; Start 08/27/16 at 21:00 Ondansetron HCl (Zofran Tab) 4 mg Q8H PRN PO NAUSEA AND/OR VOMITING; Start at 20:30 Pantoprazole (Protonix Tab) 40 mg DAILY PO Last administered on 09/01/16 08:26 ; Admin Dose 40 MG; Start 08/28/16 at 09:00 Sertraline HCl 200 mg 200 mg DAILY PO Last administered on 09/01/16 08:26; Admin Dose 200 MG; Start 08/28/16 at 09:00 Potassium Chloride/Sodium Chloride (NS-KCl 20 Meq) 1,000 ml @ 50 mls/hr Q20H IV Last administered on 08/31/16 05:24; Admin Dose 50 MLS/HR; Start 08/27/16 at 23:09 Ondansetron HCl (Zofran Inj) 4 mg Q6H PRN IV NAUSEA AND/OR VOMITING Last administered on 09/01/16 08:34; Admin Dose 4 MG; Start 08/27/16 at 23:30 Acetaminophen/ Hydrocodone Bitart ([place] (5/325)) 1 tab Q6H PRN PO MODERATE PAIN LEVEL 4-6 Last administered on 08/28/16 19:59; Admin Dose 1 TAB; Start at 23:30 Docusate Sodium (Colace) 100 mg Q12H PRN PO CONSTIPATION; Start 08/27/16 at 23: 30 Magnesium Hydroxide (Milk Of Mag) 30 ml DAILY PRN PO CONSTIPATION; Start at 23:30 Bisacodyl (Dulcolax) 5 mg DAILY PRN PO CONSTIPATION; Start 08/27/16 at 23:30 Alprazolam (Xanax) 2 mg BID PRN PO ANXIETY Last administered on 09/01/16 14:25 ; Admin Dose 2 MG; Start 08/28/16 at 00:08 Hydromorphone HCl (Dilaudid) 1 mg Q4H PRN IV PAIN Last administered on 13:18; Admin Dose 1 MG; Start 08/28/16 at 06:00 Fluconazole 150 mg 150 mg DAILY PO Last administered on 09/01/16 08:26; Admin Dose 150 MG; Start 08/30/16 at 20:00; Stop 09/03/16 at 20:00 Vancomycin HCl 1.25 gm/Sodium Chloride 250 ml @ 83.333 mls/ hr Q8H IVPB Last administered on 09/01/16 10:09; Admin Dose 83.333 MLS/HR; Start 08/31/16 at 17: 00 Ampicillin Sodium/ Sulbactam Sodium (Unasyn 3gm/NS (Pmx)) 100 ml @ 100 mls/hr Q6H IVPB ; Start 09/01/16 at 20:00 JOHN CORDERO NP September 01, 2016 17:16
--- NOTE | 2016-09-01 18:42 | PN ---
DATE: 09/01/2016 SUBJECTIVE: States that she has been nauseous today. No vomiting. States that her appetite is not good. She only drinks liquid diet, does not eat. She has some pain when she eats solid food in the right upper quadrant. OBJECTIVE: GENERAL: Awake, alert, oriented x3, in no acute distress. VITAL SIGNS: Temperature 98.6 degrees. Heart rate 72 and regular, respirations 18, blood pressure 109/59, saturation 91% on room air. LABS: WBC dropped to 12,500 today with 61% segmented, hemoglobin 10, hematocrit 31.8, but the platelet count is elevated at 497. The nurse reports that when she flushes the pig tale tube, it easily flushes in but nothing can be aspirated, and it is by the vacuum suction connected to the tubing. Actually in past 24 hours it has been zero drainage from the abscess cavity. The cultures as was mentioned, not final, it is preliminary, but has grown enterococcus species coagulase negative staph and E. coli. The infectious disease colleagues are adjusting the antibiotics per sensitivities. PHYSICAL EXAMINATION: ABDOMEN: Soft. No guarding, mild tenderness in the right upper quadrant. EXTREMITIES: Legs; no calf tenderness. ASSESSMENT: Status post percutaneous drainage of the intra-abdominal abscess overlying the inferior border of the right liver lobe. Placement of pigtail drain catheter into the abscess cavity, which has been draining purulent material for 2 to 3 days, but not in past 48 hours, has stopped draining. PLAN: We will continue observing and irrigate the tubing with flushing with 10 mL q.8h. If by Thursday, that being the day after tomorrow, single drainage. Then we are going to get a CT scan to find out what is going on with the abscess cavity and the catheter inside the abscess cavity. Then, will make a decision. Dictated By: BRADLY CORTES/ARGELIA Conf#: [id number] DID#: [id number] MTDD
[2016-09-01 20:25] VITALS: BP 121/63; RESP 19
[2016-09-01] MEDS: LOSARTAN 25 MG TAB PO SCH (20:47)
[2016-09-01] MEDS: CIPROFLOXACIN 400MG/D5W 200 ML IVPB SCH (21:19)
[2016-09-02] MEDS: HYDROmorphONE 1 MG/ML SYG IV PRN ×6 (01:19→21:50)
[2016-09-02] MEDS: NS + KCL 20 MEQ 1,000 ML IV SCH (01:22)
[2016-09-02] MEDS: VANCOMYCIN 1.25 GM in SOD CHLORIDE 0.9% 250 ML IVPB SCH ×3 (01:22→18:04)
[2016-09-02] MEDS: ALPRAZOLAM 0.5 MG TAB PO PRN ×2 (02:05→15:01)
[2016-09-02] MEDS: AMPICILLIN/SULB 3 GM/NS (PMX) 100 ML IVPB SCH ×4 (02:06→21:26)
[2016-09-02] MEDS: GABAPENTIN 300 MG CAP PO SCH ×4 (02:30→21:26)
[2016-09-02 06:09] LABS: ADD SCAN DIFF NO
[2016-09-02 06:23] LABS: BASOPHIL # 0.1 10^3/ul (0.0-0.1); BASOPHILS % 0.4 % (0.0-2.0); EOSINOPHILS # 0.2 10^3/ul (0.0-0.5); EOSINOPHILS % 1.6 % (0.0-7.0); HEMATOCRIT 33.3 % (37.0-47.0); HEMOGLOBIN 10.4 g/dl (12.0-16.0); LYMPHOCYTES # 2.8 10^3/ul (0.8-2.9); LYMPHOCYTES % 19.6 % (15.0-51.0); MEAN CORPUSCULAR HEMOGLOBIN 24.7 pg (29.0-33.0); MEAN CORPUSCULAR HGB CONC 31.2 g/dl (32.0-37.0); MEAN CORPUSCULAR VOLUME 79.1 fl (82.0-101.0); MEAN PLATELET VOLUME 8.6 fl (7.4-10.4); MONOCYTE # 1.1 10^3/ul (0.3-0.9); MONOCYTES % 8.1 % (0.0-11.0); NEUTROPHIL # 9.8 10^3/ul (1.6-7.5); NEUTROPHILS % 69.5 % (39.0-77.0); PLATELET COUNT 506 10^3/UL (140-415); RED BLOOD COUNT 4.21 10^6/ul (4.20-5.40); RED CELL DISTRIBUTION WIDTH 14.7 % (11.5-14.5); WHITE BLOOD COUNT 14.1 10^3/ul (4.8-10.8)
[2016-09-02 06:36] LABS: CHLORIDE 113 mmol/L (97-110); POTASSIUM 3.1 mmol/L (3.5-5.1); SODIUM 141 mmol/L (135-144)
[2016-09-02 06:39] LABS: ANION GAP 4 (8-16); CARBON DIOXIDE 27 mmol/L (21-31); CREATININE 0.39 mg/dl (0.44-1.00)
[2016-09-02 06:40] LABS: CALCIUM 6.8 mg/dl (8.4-10.2); GLUCOSE 76 mg/dl (70-220)
[2016-09-02 06:42] LABS: BLOOD UREA NITROGEN < 2 mg/dl (7-20)
--- NOTE | 2016-09-02 07:47 | PN ---
DATE: 08/31/2016 PROGRESS NOTE FOLLOWUP Status post percutaneous drainage of the intra-abdominal abscess below the right lobe of the liver, which was done on 08/28/2016. SUBJECTIVE: The patient states that she had a lot of pain today, morning. The nurse reported to me that they were flushing the pigtail tubing very easily, but nothing could be aspirated and it has s topped draining since last night. OBJECTIVE: VITAL SIGNS: Temperature 98.8, heart rate 77, respiration 18, blood pressure 101/57, saturation 94% on room air. ABDOMEN: Soft. I tried to irrigate and flush the tubing with 10 mL of saline, which was easily don e, but I could not aspirate any pus or fluid back. LABORATORY DATA: Sodium, potassium normal. BUN 3, creatinine 0.39, low level of normal. WBC 13,100 with 63% segmented, which segmented is normal but WBC is slightly still elevated, hemoglobin 9.8, h ematocrit 30.2. Platelet count 507. ASSESSMENT: 1. Status post percutaneous drainage of the abscess below the right lobe of the liver. It has been draining purulent material that the culture has grown the following, enterococcus species 1+. 2. Coagulase-negative staph scant growth. 3. Gram-negative xenia scan grossly, no identified in nature. The percutaneous drainage tubing, name ly the pigtail tube has stopped the drainage as of last night. We continue to observe the patient an d we have to make a decision maybe by Thursday, not tomorrow. We are going to repeat a CT scan to fi nd out how much more of the abscess is left and why it is not draining anymore. We will discuss melvin h Dr. Saeed as well. 4. Consideration is to think about the possibility of opening the peritoneal cavity and draining the abscess as an open drainage. This was discussed with Dr. Dixon, who is the original surgeon and samayoa s been following the patient in the office. Dictated By: BRADLY UGALDE MD PS/NTS Conf#: [id number] DID#: [id number]
[2016-09-02 08:09] VITALS: BP 118/62; RESP 18
[2016-09-02] MEDS: ONDANSETRON 4 MG INJ IV PRN (08:37)
[2016-09-02] MEDS: FLUCONAZOLE 150 MG TAB PO SCH (08:43)
[2016-09-02] MEDS: SERTRALINE 100 MG TAB PO SCH (08:44)
[2016-09-02] MEDS: PANTOPRAZOLE (EC) 40 MG TAB PO SCH (08:48)
[2016-09-02] MEDS: CIPROFLOXACIN 400MG/D5W 200 ML IVPB SCH ×2 (09:36→22:53)
[2016-09-02] MEDS ORDERED: POTASSIUM CHLORIDE (SR) 20 MEQ TAB PO STA (11:05)
--- NOTE | 2016-09-02 18:44 | PN ---
Date/Time of Note Date/Time of Note DATE: 09/02/16 TIME: 18:43 Assessment/Plan VTE Prophylaxis VTE Prophylaxis Intervention: other Lines/Catheters IV [facility]ter [facility]from [facility] [place] [facility] Urinary Cath still in place: No Assessment/Plan Chief Complaint/Hosp Course IMPRESSION: 1. The patient has right upper quadrant abscess, possibly biloma. 2. The patient has leukocytosis. 3. History of cholecystectomy. 4. Anemia. 5. Hypokalemia. 6. Obesity. 7. Dyslipidemia. 8. Anxiety. 9. Insomnia. planantibiotic PER GI AND ID and surgery Problems: Subjective 24 Hr Interval Summary Respiratory: no complaints Cardiovascular: no complaints Gastrointestinal: No diarrhea, No nausea Exam/Review of Systems Vital Signs Vitals Vital Signs Date Time Temp Pulse Resp B/P Pulse Ox O2 Delivery O2 Flow Rate FiO2 09/02/16 08:09 99.3 84 18 118/62 93 09/02/16 07:15 2.0 Intake and Output 09/01/16 09/01/16 09/02/16 15:00 23:00 07:00 Intake Total 250 ml 1685 ml 1050.00 ml Output Total 0 ml Balance 250 ml 1685 ml 1050.00 ml Exam Respiratory: clear to auscultation Cardiovascular: regular rate and rhythm Gastrointestinal: other (drain+), soft Results Result Diagram: 09/02/16 0540 09/02/16 0540 Results 24 hrs Laboratory Tests Test 09/02/16 05:40 White Blood Count 14.1 H Red Blood Count 4.21 Hemoglobin 10.4 L Hematocrit 33.3 L Mean Corpuscular Volume 79.1 L Mean Corpuscular Hemoglobin 24.7 L Mean Corpuscular Hemoglobin Concent 31.2 L Red Cell Distribution Width 14.7 H Platelet Count 506 H Mean Platelet Volume 8.6 Neutrophils % 69.5 Lymphocytes % 19.6 Monocytes % 8.1 Eosinophils % 1.6 Basophils % 0.4 Nucleated Red Blood Cells % 0.0 Neutrophils # 9.8 H Lymphocytes # 2.8 Monocytes # 1.1 H Eosinophils # 0.2 Basophils # 0.1 Nucleated Red Blood Cells # 0.0 Sodium Level 141 Potassium Level 3.1 L Chloride Level 113 H Carbon Dioxide Level 27 Anion Gap 4 L Blood Urea Nitrogen < 2 L Creatinine 0.39 L Glucose Level 76 Calcium Level 6.8 L Medications Medications Current Medications Acetaminophen (Tylenol Tab) 650 mg Q6H PRN PO PAIN AND OR ELEVATED TEMP Last administered on 08/29/16 09:01; Admin Dose 650 MG; Start 08/27/16 at 20:00 Gabapentin (Neurontin) 300 mg Q6H PO Last administered on 09/02/16 13:43; Admin Dose 300 MG; Start 08/27/16 at 20:30 Losartan Potassium (Cozaar) 25 mg DAILY@21 PO Last administered on 09/01/16 20 :47; Admin Dose 25 MG; Start 08/27/16 at 21:00 Ondansetron HCl (Zofran Tab) 4 mg Q8H PRN PO NAUSEA AND/OR VOMITING; Start at 20:30 Pantoprazole (Protonix Tab) 40 mg DAILY PO Last administered on 09/02/16 08:48 ; Admin Dose 40 MG; Start 08/28/16 at 09:00 Sertraline HCl 200 mg 200 mg DAILY PO Last administered on 09/02/16 08:44; Admin Dose 200 MG; Start 08/28/16 at 09:00 Potassium Chloride/Sodium Chloride (NS-KCl 20 Meq) 1,000 ml @ 50 mls/hr Q20H IV Last administered on 09/02/16 01:22; Admin Dose 50 MLS/HR; Start 08/27/16 at 23:09 Ondansetron HCl (Zofran Inj) 4 mg Q6H PRN IV NAUSEA AND/OR VOMITING Last administered on 09/02/16 08:37; Admin Dose 4 MG; Start 08/27/16 at 23:30 Acetaminophen/ Hydrocodone Bitart ([place] (5/325)) 1 tab Q6H PRN PO MODERATE PAIN LEVEL 4-6 Last administered on 08/28/16 19:59; Admin Dose 1 TAB; Start at 23:30 Docusate Sodium (Colace) 100 mg Q12H PRN PO CONSTIPATION; Start 08/27/16 at 23: 30 Magnesium Hydroxide (Milk Of Mag) 30 ml DAILY PRN PO CONSTIPATION; Start at 23:30 Bisacodyl (Dulcolax) 5 mg DAILY PRN PO CONSTIPATION; Start 08/27/16 at 23:30 Alprazolam (Xanax) 2 mg BID PRN PO ANXIETY Last administered on 09/02/16 15:01 ; Admin Dose 2 MG; Start 08/28/16 at 00:08 Hydromorphone HCl (Dilaudid) 1 mg Q4H PRN IV PAIN Last administered on 18:03; Admin Dose 1 MG; Start 08/28/16 at 06:00 Fluconazole 150 mg 150 mg DAILY PO Last administered on 09/02/16 08:43; Admin Dose 150 MG; Start 08/30/16 at 20:00; Stop 09/03/16 at 20:00 Vancomycin HCl 1.25 gm/Sodium Chloride 250 ml @ 83.333 mls/ hr Q8H IVPB Last administered on 09/02/16 18:04; Admin Dose 83.333 MLS/HR; Start 08/31/16 at 17: 00 Ampicillin Sodium/ Sulbactam Sodium 100 ml @ 100 mls/hr Q6H IVPB Last administered on 09/02/16 14:59; Admin Dose 100 MLS/HR; Start 09/01/16 at 20:00 Ciprofloxacin/ Dextrose (Cipro Ivpb) 200 ml @ 200 mls/hr Q12 IVPB Last administered on 09/02/16 09:36; Admin Dose 200 MLS/HR; Start 09/01/16 at 21:00 JEB VAZQUEZ MD September 02, 2016 18:44
[2016-09-02 20:00] VITALS: BP 105/59; RESP 17
[2016-09-02] MEDS: LOSARTAN 25 MG TAB PO SCH (21:26)
[2016-09-02 21:28] VITALS: BP 118/58
--- NOTE | 2016-09-03 00:09 | PN ---
DATE: 09/02/2016 INFECTIOUS DISEASE PROGRESS NOTE SUBJECTIVE: Patient is alert, feels good, looks comfortable, no fevers. Vital signs stable. MICROBIOLOGY: Intraabdominal abscesses growing no anaerobes, enterococcus species susceptible to am picillin and vancomycin, and E. coli, susceptible to Cipro, resistant to Ancef and ampicillin. PHYSICAL EXAMINATION: GENERAL: This is a morbidly obese, well-developed, middle-aged woman who is lying comfortably in be d. HEENT: Head atraumatic, normocephalic. Sclerae anicteric. Buccal mucosa dry. NECK: Supple, trachea midline. CHEST: Rise symmetrical. Breath sounds clear. HEART: S1, S2. ABDOMEN: Soft, bowel tones present. EXTREMITIES: Without cyanosis. ASSESSMENT: 1. Systemic inflammatory response syndrome with fevers and leukocytosis on admission. 2. Recurrent intraabdominal abscess status post CT-guided drainage. 3. History of biliary leak status post stent placement on 07/19/2016. 4. History of cholecystectomy. 5. Morbid obesity. PLAN: The patient remains stable. We are going to discontinue vancomycin, keep her on Cipro and Un asyn that covers enterococcus and follow surgical recommendations. Dictated By: ABNER BALL BEHAVIOR ANALYST for DALTON LOPEZ/ARGELIA Conf#: [id number] DID#: [id number]
[2016-09-03] MEDS: NS + KCL 20 MEQ 1,000 ML IV SCH (01:48)
[2016-09-03] MEDS: AMPICILLIN/SULB 3 GM/NS (PMX) 100 ML IVPB SCH ×4 (01:48→20:27)
[2016-09-03] MEDS: HYDROmorphONE 1 MG/ML SYG IV PRN ×6 (01:49→23:32)
[2016-09-03] MEDS: GABAPENTIN 300 MG CAP PO SCH ×4 (01:55→20:27)
[2016-09-03] MEDS: ALPRAZOLAM 0.5 MG TAB PO PRN ×2 (02:28→11:50)
[2016-09-03 04:51] LABS: ADD SCAN DIFF NO
[2016-09-03 04:54] LABS: BASOPHILS % 0.3 % (0.0-2.0); EOSINOPHILS # 0.3 10^3/ul (0.0-0.5); EOSINOPHILS % 2.3 % (0.0-7.0); HEMATOCRIT 32.6 % (37.0-47.0); HEMOGLOBIN 10.3 g/dl (12.0-16.0); LYMPHOCYTES # 4.2 10^3/ul (0.8-2.9); LYMPHOCYTES % 35.8 % (15.0-51.0); MEAN CORPUSCULAR HEMOGLOBIN 25.3 pg (29.0-33.0); MEAN CORPUSCULAR HGB CONC 31.6 g/dl (32.0-37.0); MEAN CORPUSCULAR VOLUME 80.1 fl (82.0-101.0); MEAN PLATELET VOLUME 8.5 fl (7.4-10.4); MONOCYTE # 0.9 10^3/ul (0.3-0.9); MONOCYTES % 7.4 % (0.0-11.0); NEUTROPHIL # 6.3 10^3/ul (1.6-7.5); NEUTROPHILS % 53.5 % (39.0-77.0); PLATELET COUNT 527 10^3/UL (140-415); RED BLOOD COUNT 4.07 10^6/ul (4.20-5.40); RED CELL DISTRIBUTION WIDTH 14.5 % (11.5-14.5); WHITE BLOOD COUNT 11.8 10^3/ul (4.8-10.8)
[2016-09-03 05:48] LABS: ALBUMIN 3.9 g/dl (3.3-4.9); ALBUMIN/GLOBULIN RATIO 1.11; CALCIUM 8.6 mg/dl (8.4-10.2); CREATININE 0.44 mg/dl (0.44-1.00); POTASSIUM 3.7 mmol/L (3.5-5.1); TOTAL PROTEIN 7.4 g/dl (6.1-8.1)
[2016-09-03 07:45] VITALS: BP 98/51; RESP 16
--- NOTE | 2016-09-03 07:53 | PN ---
DATE: 09/02/2016 SUBJECTIVE: Feels slightly better. No nausea. States that appetite has improved significantly today. OBJECTIVE: VITAL SIGNS: Temperature 99.3, heart rate 84, respirations 18, blood pressure 118/62, saturation 93% on 2 liter nasal flow oxygen. LABORATORIES: WBC is 14,100 with 69% segmented, hemoglobin 10.4, hematocrit 33.3. The nurse reported that she flushed it with 10 mL today morning at 10:00 and aspirated back 20 mL brownish thick fluid was aspirated, and since that time , again 20 mL more has been drained, so totally since 6:00 or 7:00 a.m. until now which is 4:30 p.m. 65 mL of purulent liquid has been aspirated and drained from the pigtail tube. Abdomen is soft. ASSESSMENT: Percutaneous drainage of the right lower quadrant below the liver abscess it stopped draining on the weekend, but now again has been draining since today morning. Hopefully, it continues to drain. We will get a CT scan on or on Thursday to evaluate the amount of drainage and residual volume of the abscess cavity. PLAN: Continue antibiotics per infectious disease. Dictated By: BRADLY CORTES/NTS Conf#: [id number] DID#: [id number]
[2016-09-03] MEDS: ONDANSETRON 4 MG INJ IV PRN ×3 (08:30→21:47)
[2016-09-03] MEDS: PANTOPRAZOLE (EC) 40 MG TAB PO SCH (08:32)
[2016-09-03] MEDS: SERTRALINE 100 MG TAB PO SCH (08:33)
[2016-09-03] MEDS: FLUCONAZOLE 150 MG TAB PO SCH (08:33)
[2016-09-03] MEDS: CIPROFLOXACIN 400MG/D5W 200 ML IVPB SCH ×2 (08:34→21:41)
[2016-09-03] MEDS ORDERED: LIDOCAINE 1% (MPF) 5 ML VIAL SC ONE (09:30)
[2016-09-03] MEDS ORDERED: BARIUM SULF 2% 450 ML BTL (BERRY SMOOTHIE) PO ONE (12:00)
--- NOTE | 2016-09-03 12:47 | PN ---
DATE: 09/03/2016 SUBJECTIVE: 1. States the pain is milder today. 2. States she had shaking chills today and followed by sweats but no fevers, but this has not been documented by the nurses. Also she has had a bowel movement today. She had breakfast today. OBJECTIVE: VITAL SIGNS: Temperature 97.5, heart rate 62 regular, respirations 16, blood pressure 98/61, satura tion 91% on 2 liters of nasal cannula flow. ABDOMEN: Soft. Pigtail drainage system has drained 100 mL over the past 24 hours, namely from 6:00 a.m. yesterday to 6:00 a.m. today, but since last night until morning has drained only 10 mL and no w since 6:00 a.m. today until now , has drained a few mL. LABORATORY DATA: WBC has dropped to 11,800 with 53% segmented. Chemistry: Sodium and potassium no rmal. BUN and creatinine normal. Albumin is 3.9. Globulin 3.50. ASSESSMENT: Continuous drainage of the intra-abdominal subhepatic abscess on the right side. The p atient is getting antibiotic sensitivity according to the infectious disease people. The drainage i s fluctuating, some days it is draining, some days it stops draining even though it is being flushed . PLAN: We will check CT scan of the abdomen to evaluate the abscess cavity and if the size of the ab scess cavity has shrunken or not, and then further decision will be made after seeing the results of the CT scan tomorrow. Continue on the antibiotics as before. Dictated By: BRADLY CORTES/ARGELIA Conf#: [id number] DID#: [id number]
--- NOTE | 2016-09-03 13:40 | RADRPT ---
PROCEDURE: XR Chest. CLINICAL INDICATION: PICC line placement TECHNIQUE: Single frontal view of the chest was obtained COMPARISON: None FINDINGS: There is a new left-sided PICC line in place with its tip overlying the mid right atrium. Retraction of 3 cm is recommended. There is mild cardiomegaly. There is elevation of the right diaphragm. RPTAT: AA IMPRESSION: New PICC line with its tip overlying the mid right atrium. Retraction of 3 cm is recommended. .Ángel Sweeney MD, Date Time Electronically viewed and signed by .Ángel Sweeney MD, on 09/03/2016 13:40 .S/
--- NOTE | 2016-09-03 13:56 | RADRPT ---
PROCEDURE: US guidance for PICC line CLINICAL INDICATION: PICC line placement TECHNIQUE: Multiple real-time images were acquired of the patient's arm utilizing a high resolutio n transducer. This was performed by the PICC line nurse for venous access. COMPARISON: None FINDINGS: Ultrasound guidance for PICC line placement. IMPRESSION: Ultrasound guidance for PICC line placement. RPTAT: AA .Ángel Sweeney MD, MD Date Time Electronically viewed and signed by .Ángel Sweeney MD, on 09/03/2016 13:56 .S/
--- NOTE | 2016-09-03 14:08 | PN ---
DATE: 09/03/2016 SUBJECTIVE: No acute changes. The patient is lying comfortably in bed. No fevers. LABORATORY DATA: WBC today 11.8, no shift, no bands. BUN 3, creatinine 0.44. ANTIMICROBIALS: 1. Unasyn. 2. Ciprofloxacin. PHYSICAL EXAMINATION: GENERAL: This is a morbidly obese, middle-aged woman, who is alert, in no distress. HEENT: Head atraumatic, normocephalic. Sclerae anicteric. Buccal mucosa dry. NECK: Supple. CHEST: Rise symmetrical. Breath sounds diminished to bases. HEART: S1, S2. ABDOMEN: Soft. Bowel sounds present. EXTREMITIES: Without cyanosis. ASSESSMENT: 1. Recurrent intra-abdominal abscess, status post CT-guided drainage with catheter placement and dr arce culture growing enterococcus species E. coli and coagulase-negative staph species, no anaerob es. 2. Systemic inflammatory response syndrome secondary to above. 3. History of cholecystectomy. 4. History of biliary leak, status post stent placement in 07/2016. 5. Obesity. PLAN: The patient remains stable on appropriate antimicrobials. Surgery follows. Pending repeat C T of the abdomen. Dictated By: ABNER BALL TRAILER CHIEF for DALTON LOPEZ/ARGELIA Conf#: [id number] DID#: [id number]
--- NOTE | 2016-09-03 20:07 | PN ---
Date/Time of Note Date/Time of Note DATE: 09/03/16 TIME: 20:06 Assessment/Plan VTE Prophylaxis VTE Prophylaxis Intervention: other Lines/Catheters IV Catheter Type (from Nrs): PICC Line Central line still needed: Yes Urinary Cath still in place: No Reason Cath still needed: other (indicate) Assessment/Plan Chief Complaint/Hosp Course IMPRESSION: 1. The patient has right upper quadrant abscess, possibly biloma. 2. The patient has leukocytosis. 3. History of cholecystectomy. 4. Anemia. 5. Hypokalemia. 6. Obesity. 7. Dyslipidemia. 8. Anxiety. 9. Insomnia. planantibiotic PER GI AND ID and surgery drain care Problems: Subjective 24 Hr Interval Summary Gastrointestinal: pain Exam/Review of Systems Vital Signs Vitals Vital Signs Date Time Temp Pulse Resp B/P Pulse Ox O2 Delivery O2 Flow Rate FiO2 09/03/16 10:18 2.0 09/03/16 07:45 97.5 62 16 98/51 91 Intake and Output 09/02/16 09/02/16 09/03/16 15:00 23:00 07:00 Intake Total 550 ml 2070 ml 1050 ml Output Total 100 ml Balance 550 ml 1970 ml 1050 ml Exam Respiratory: clear to auscultation Cardiovascular: regular rate and rhythm Gastrointestinal: bowel sounds (+), soft Results Result Diagram: 09/03/16 0435 09/03/16 0435 Results 24 hrs Laboratory Tests Test 09/03/16 04:35 White Blood Count 11.8 H Red Blood Count 4.07 L Hemoglobin 10.3 L Hematocrit 32.6 L Mean Corpuscular Volume 80.1 L Mean Corpuscular Hemoglobin 25.3 L Mean Corpuscular Hemoglobin Concent 31.6 L Red Cell Distribution Width 14.5 Platelet Count 527 H Mean Platelet Volume 8.5 Neutrophils % 53.5 Lymphocytes % 35.8 Monocytes % 7.4 Eosinophils % 2.3 Basophils % 0.3 Nucleated Red Blood Cells % 0.0 Neutrophils # 6.3 Lymphocytes # 4.2 H Monocytes # 0.9 Eosinophils # 0.3 Basophils # 0.0 Nucleated Red Blood Cells # 0.0 Sodium Level 138 Potassium Level 3.7 Chloride Level 102 # Carbon Dioxide Level 29 Anion Gap 11 # Blood Urea Nitrogen 3 L Creatinine 0.44 Glucose Level 90 Calcium Level 8.6 Total Bilirubin 0.0 L Direct Bilirubin 0.00 Indirect Bilirubin 0.0 Aspartate Amino Transf (AST/SGOT) 17 Alanine Aminotransferase (ALT/SGPT) 30 Alkaline Phosphatase 81 Total Protein 7.4 Albumin 3.9 Globulin 3.50 H Albumin/Globulin Ratio 1.11 Medications Medications Current Medications Acetaminophen (Tylenol Tab) 650 mg Q6H PRN PO PAIN AND OR ELEVATED TEMP Last administered on 08/29/16 09:01; Admin Dose 650 MG; Start 08/27/16 at 20:00 Gabapentin (Neurontin) 300 mg Q6H PO Last administered on 09/03/16 14:33; Admin Dose 300 MG; Start 08/27/16 at 20:30 Losartan Potassium (Cozaar) 25 mg DAILY@21 PO Last administered on 09/02/16 21 :26; Admin Dose 25 MG; Start 08/27/16 at 21:00 Ondansetron HCl (Zofran Tab) 4 mg Q8H PRN PO NAUSEA AND/OR VOMITING; Start at 20:30 Pantoprazole (Protonix Tab) 40 mg DAILY PO Last administered on 09/03/16 08:32 ; Admin Dose 40 MG; Start 08/28/16 at 09:00 Sertraline HCl 200 mg 200 mg DAILY PO Last administered on 09/03/16 08:33; Admin Dose 200 MG; Start 08/28/16 at 09:00 Potassium Chloride/Sodium Chloride (NS-KCl 20 Meq) 1,000 ml @ 50 mls/hr Q20H IV Last administered on 09/03/16 01:48; Admin Dose 50 MLS/HR; Start 08/27/16 at 23:09 Ondansetron HCl (Zofran Inj) 4 mg Q6H PRN IV NAUSEA AND/OR VOMITING Last administered on 09/03/16 14:40; Admin Dose 4 MG; Start 08/27/16 at 23:30 Acetaminophen/ Hydrocodone Bitart ([place] (5/325)) 1 tab Q6H PRN PO MODERATE PAIN LEVEL 4-6 Last administered on 08/28/16 19:59; Admin Dose 1 TAB; Start at 23:30 Docusate Sodium (Colace) 100 mg Q12H PRN PO CONSTIPATION; Start 08/27/16 at 23: 30 Magnesium Hydroxide (Milk Of Mag) 30 ml DAILY PRN PO CONSTIPATION; Start at 23:30 Bisacodyl (Dulcolax) 5 mg DAILY PRN PO CONSTIPATION; Start 08/27/16 at 23:30 Alprazolam (Xanax) 2 mg BID PRN PO ANXIETY Last administered on 09/03/16 11:50 ; Admin Dose 2 MG; Start 08/28/16 at 00:08 Hydromorphone HCl 1 mg 1 mg Q4H PRN IV PAIN Last administered on 09/03/16 19: 25; Admin Dose 1 MG; Start 08/28/16 at 06:00 Ampicillin Sodium/ Sulbactam Sodium 100 ml @ 100 mls/hr Q6H IVPB Last administered on 09/03/16 14:40; Admin Dose 100 MLS/HR; Start 09/01/16 at 20:00 Ciprofloxacin/ Dextrose (Cipro Ivpb) 200 ml @ 200 mls/hr Q12 IVPB Last administered on 09/03/16 08:34; Admin Dose 200 MLS/HR; Start 09/01/16 at 21:00 IV Flush (NS 10 ml) 10 ml PRN PRN IV IV PROTOCOL; Start 09/03/16 at 14:30 JEB VAZQUEZ MD September 03, 2016 20:07
[2016-09-03 20:17] VITALS: BP 107/61; RESP 18
[2016-09-03] MEDS: LOSARTAN 25 MG TAB PO SCH (20:27)
--- NOTE | 2016-09-03 20:36 | CONS ---
Date/Time of Note Date/Time of Note DATE: 09/03/16 TIME: 20:35 Assessment/Plan Assessment/Plan Additional Assessment/Plan ASSESSMENT: 1. Systemic inflammatory response syndrome with fevers and leukocytosis secondary to #2. 2. Recurrent intraabdominal abscess status post CT-guided drainage, with fluid cultures growing gram-negative rods. 3. History of cholecystectomy. 4. History of biliary leak, status post stent placement on 07/19/2016. 5. History of post-ERCP pancreatitis. PLAN: 1. continue IR drainage of the intraabdominal abscess. 2. Abx per ID agricultural consultant. 3. Follow final cultures. 4. repeat CT Thursday to assess for persistence of intraabdominal abscess 5. per discussion with Dr. Georges, if there is presistence of the abscess on repeat CT, may need repeat IR drain vs surgical I&D Consultation Date/Type/Reason Admit Date/Time August 27, 2016 at 16:10 Initial Consult Date Type of Consultation: ID 24 HR Interval Summary Free Text/Dictation Pain in the right upper quadrant Exam/Review of Systems Vital Signs Vitals Vital Signs Date Time Temp Pulse Resp B/P Pulse Ox O2 Delivery O2 Flow Rate FiO2 09/03/16 20:17 98.5 63 18 107/61 94 09/03/16 10:18 2.0 Intake and Output 09/02/16 09/02/16 09/03/16 15:00 23:00 07:00 Intake Total 550 ml 2070 ml 1050 ml Output Total 100 ml Balance 550 ml 1970 ml 1050 ml Exam Constitutional: alert, oriented, well developed Psych: nl mood/affect, no complaints Head: atraumatic, normocephalic Eyes: EOMI, PERRL, nl conjunctiva, nl lids, nl sclera ENMT: nl external ears & nose, nl lips & teeth, nl nasal mucosa & septum Neck: non-tender, supple Respiratory: clear to auscultation, normal air movement Cardiovascular: nl pulses, regular rate and rhythm Gastrointestinal: nl liver, spleen, non-tender, soft Musculoskeletal: nl extremities to inspection, nl gait and stance Extremities: normal pulses Neurological: 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 LIQUEFIER II-XII 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, nl mental status, nl speech, nl strength Skin: nl turgor, No rash or lesions Lymph: nl lymph nodes Results Result Diagram: 09/03/16 0435 09/03/16 0435 Results 24 hrs Laboratory Tests Test 09/03/16 04:35 White Blood Count 11.8 H Red Blood Count 4.07 L Hemoglobin 10.3 L Hematocrit 32.6 L Mean Corpuscular Volume 80.1 L Mean Corpuscular Hemoglobin 25.3 L Mean Corpuscular Hemoglobin Concent 31.6 L Red Cell Distribution Width 14.5 Platelet Count 527 H Mean Platelet Volume 8.5 Neutrophils % 53.5 Lymphocytes % 35.8 Monocytes % 7.4 Eosinophils % 2.3 Basophils % 0.3 Nucleated Red Blood Cells % 0.0 Neutrophils # 6.3 Lymphocytes # 4.2 H Monocytes # 0.9 Eosinophils # 0.3 Basophils # 0.0 Nucleated Red Blood Cells # 0.0 Sodium Level 138 Potassium Level 3.7 Chloride Level 102 # Carbon Dioxide Level 29 Anion Gap 11 # Blood Urea Nitrogen 3 L Creatinine 0.44 Glucose Level 90 Calcium Level 8.6 Total Bilirubin 0.0 L Direct Bilirubin 0.00 Indirect Bilirubin 0.0 Aspartate Amino Transf (AST/SGOT) 17 Alanine Aminotransferase (ALT/SGPT) 30 Alkaline Phosphatase 81 Total Protein 7.4 Albumin 3.9 Globulin 3.50 H Albumin/Globulin Ratio 1.11 Medications Medications Current Medications Acetaminophen (Tylenol Tab) 650 mg Q6H PRN PO PAIN AND OR ELEVATED TEMP Last administered on 08/29/16 09:01; Admin Dose 650 MG; Start 08/27/16 at 20:00 Gabapentin (Neurontin) 300 mg Q6H PO Last administered on 09/03/16 14:33; Admin Dose 300 MG; Start 08/27/16 at 20:30 Losartan Potassium (Cozaar) 25 mg DAILY@21 PO Last administered on 09/03/16 20 :27; Admin Dose 25 MG; Start 08/27/16 at 21:00 Ondansetron HCl (Zofran Tab) 4 mg Q8H PRN PO NAUSEA AND/OR VOMITING; Start at 20:30 Pantoprazole (Protonix Tab) 40 mg DAILY PO Last administered on 09/03/16 08:32 ; Admin Dose 40 MG; Start 08/28/16 at 09:00 Sertraline HCl 200 mg 200 mg DAILY PO Last administered on 09/03/16 08:33; Admin Dose 200 MG; Start 08/28/16 at 09:00 Potassium Chloride/Sodium Chloride (NS-KCl 20 Meq) 1,000 ml @ 50 mls/hr Q20H IV Last administered on 09/03/16 01:48; Admin Dose 50 MLS/HR; Start 08/27/16 at 23:09 Ondansetron HCl (Zofran Inj) 4 mg Q6H PRN IV NAUSEA AND/OR VOMITING Last administered on 09/03/16 14:40; Admin Dose 4 MG; Start 08/27/16 at 23:30 Acetaminophen/ Hydrocodone Bitart ([place] (5/325)) 1 tab Q6H PRN PO MODERATE PAIN LEVEL 4-6 Last administered on 08/28/16 19:59; Admin Dose 1 TAB; Start at 23:30 Docusate Sodium (Colace) 100 mg Q12H PRN PO CONSTIPATION; Start 08/27/16 at 23: 30 Magnesium Hydroxide (Milk Of Mag) 30 ml DAILY PRN PO CONSTIPATION; Start at 23:30 Bisacodyl (Dulcolax) 5 mg DAILY PRN PO CONSTIPATION; Start 08/27/16 at 23:30 Alprazolam (Xanax) 2 mg BID PRN PO ANXIETY Last administered on 09/03/16 11:50 ; Admin Dose 2 MG; Start 08/28/16 at 00:08 Hydromorphone HCl 1 mg 1 mg Q4H PRN IV PAIN Last administered on 09/03/16 19: 25; Admin Dose 1 MG; Start 08/28/16 at 06:00 Ampicillin Sodium/ Sulbactam Sodium 100 ml @ 100 mls/hr Q6H IVPB Last administered on 09/03/16 20:27; Admin Dose 100 MLS/HR; Start 09/01/16 at 20:00 Ciprofloxacin/ Dextrose (Cipro Ivpb) 200 ml @ 200 mls/hr Q12 IVPB Last administered on 09/03/16 08:34; Admin Dose 200 MLS/HR; Start 09/01/16 at 21:00 IV Flush (NS 10 ml) 10 ml PRN PRN IV IV PROTOCOL; Start 09/03/16 at 14:30 JESUS AGUILAR MD September 03, 2016 20:35
[2016-09-04] VITALS (16 sets, daily range): BP systolic 101–177; BP diastolic 60–75; PULSE 60–86; RESP 18–24
[2016-09-04] MEDS: ZOLPIDEM 5 MG TAB PO PRN
[2016-09-04] MEDS: GABAPENTIN 300 MG CAP PO SCH ×4 (01:57→20:30)
[2016-09-04] MEDS: AMPICILLIN/SULB 3 GM/NS (PMX) 100 ML IVPB SCH ×3 (02:01→14:18)
[2016-09-04] MEDS: HYDROmorphONE 1 MG/ML SYG IV PRN ×5 (04:35→22:35)
[2016-09-04] MEDS: NS + KCL 20 MEQ 1,000 ML IV SCH ×2 (04:36→22:59)
[2016-09-04 05:17] LABS: ADD SCAN DIFF NO
[2016-09-04 05:19] LABS: BASOPHIL # 0.1 10^3/ul (0.0-0.1); BASOPHILS % 0.5 % (0.0-2.0); EOSINOPHILS # 0.3 10^3/ul (0.0-0.5); HEMATOCRIT 30.7 % (37.0-47.0); HEMOGLOBIN 9.7 g/dl (12.0-16.0); LYMPHOCYTES # 3.8 10^3/ul (0.8-2.9); LYMPHOCYTES % 33.7 % (15.0-51.0); MEAN CORPUSCULAR HEMOGLOBIN 25.2 pg (29.0-33.0); MEAN CORPUSCULAR HGB CONC 31.6 g/dl (32.0-37.0); MEAN CORPUSCULAR VOLUME 79.7 fl (82.0-101.0); MEAN PLATELET VOLUME 8.7 fl (7.4-10.4); MONOCYTE # 0.9 10^3/ul (0.3-0.9); MONOCYTES % 7.6 % (0.0-11.0); NEUTROPHIL # 6.2 10^3/ul (1.6-7.5); NEUTROPHILS % 54.5 % (39.0-77.0); PLATELET COUNT 532 10^3/UL (140-415); RED BLOOD COUNT 3.85 10^6/ul (4.20-5.40); RED CELL DISTRIBUTION WIDTH 14.6 % (11.5-14.5); WHITE BLOOD COUNT 11.3 10^3/ul (4.8-10.8)
[2016-09-04] MEDS: CIPROFLOXACIN 400MG/D5W 200 ML IVPB SCH ×2 (09:51→21:36)
--- NOTE | 2016-09-04 10:24 | CONS ---
Date/Time of Note Date/Time of Note DATE: 09/04/16 TIME: 10:22 Assessment/Plan Assessment/Plan Additional Assessment/Plan Additional Assessment/Plan ASSESSMENT: 1. Systemic inflammatory response syndrome with fevers and leukocytosis secondary to #2. 2. Recurrent intraabdominal abscess status post CT-guided drainage, with fluid cultures growing gram-negative rods. 3. History of cholecystectomy. 4. History of biliary leak, status post stent placement on 07/19/2016. 5. Obesity PLAN: 1. continue IR drainage of the intraabdominal abscess. 2. Abx per ID audit consultant. 3. Follow final cultures. 4. repeat CT Thursday to assess for persistence of intraabdominal abscess 5. Patient is also due for the removal of the stent Consultation Date/Type/Reason Admit Date/Time August 27, 2016 at 16:10 Type of Consultation: ID 24 HR Interval Summary Free Text/Dictation Complains of pain in the right upper quadrant. No fever no nausea no vomiting Exam/Review of Systems Vital Signs Vitals Vital Signs Date Time Temp Pulse Resp B/P Pulse Ox O2 Delivery O2 Flow Rate FiO2 09/04/16 08:00 98.0 71 20 101/72 90 09/03/16 10:18 2.0 Intake and Output 09/03/16 09/03/16 09/04/16 15:00 23:00 07:00 Intake Total 300 ml 1240 ml 1930 ml Output Total 20 ml 60 ml Balance 280 ml 1240 ml 1870 ml Exam Constitutional: alert, oriented, well developed Psych: nl mood/affect, no complaints Head: atraumatic, normocephalic Eyes: EOMI, PERRL, nl conjunctiva, nl lids, nl sclera ENMT: nl external ears & nose, nl lips & teeth, nl nasal mucosa & septum Neck: non-tender, supple Respiratory: clear to auscultation, normal air movement Cardiovascular: nl pulses, regular rate and rhythm Gastrointestinal: nl liver, spleen, non-tender, soft Musculoskeletal: nl extremities to inspection, nl gait and stance Extremities: normal pulses Neurological: STAKING PRESS OPERATOR II-XII 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, nl mental status, nl speech, nl strength Skin: nl turgor, No rash or lesions Lymph: nl lymph nodes Results Result Diagram: 09/04/16 0435 09/03/16 0435 Results 24 hrs Laboratory Tests Test 09/04/16 04:35 White Blood Count 11.3 H Red Blood Count 3.85 L Hemoglobin 9.7 L Hematocrit 30.7 L Mean Corpuscular Volume 79.7 L Mean Corpuscular Hemoglobin 25.2 L Mean Corpuscular Hemoglobin Concent 31.6 L Red Cell Distribution Width 14.6 H Platelet Count 532 H Mean Platelet Volume 8.7 Neutrophils % 54.5 Lymphocytes % 33.7 Monocytes % 7.6 Eosinophils % 3.0 Basophils % 0.5 Nucleated Red Blood Cells % 0.0 Neutrophils # 6.2 Lymphocytes # 3.8 H Monocytes # 0.9 Eosinophils # 0.3 Basophils # 0.1 Nucleated Red Blood Cells # 0.0 Medications Medications Current Medications Acetaminophen (Tylenol Tab) 650 mg Q6H PRN PO PAIN AND OR ELEVATED TEMP Last administered on 08/29/16 09:01; Admin Dose 650 MG; Start 08/27/16 at 20:00 Gabapentin (Neurontin) 300 mg Q6H PO Last administered on 09/03/16 14:33; Admin Dose 300 MG; Start 08/27/16 at 20:30 Losartan Potassium (Cozaar) 25 mg DAILY@21 PO Last administered on 09/03/16 20 :27; Admin Dose 25 MG; Start 08/27/16 at 21:00 Ondansetron HCl (Zofran Tab) 4 mg Q8H PRN PO NAUSEA AND/OR VOMITING; Start at 20:30 Pantoprazole (Protonix Tab) 40 mg DAILY PO Last administered on 09/03/16 08:32 ; Admin Dose 40 MG; Start 08/28/16 at 09:00 Sertraline HCl 200 mg 200 mg DAILY PO Last administered on 09/03/16 08:33; Admin Dose 200 MG; Start 08/28/16 at 09:00 Potassium Chloride/Sodium Chloride (NS-KCl 20 Meq) 1,000 ml @ 50 mls/hr Q20H IV Last administered on 09/04/16 04:36; Admin Dose 50 MLS/HR; Start 08/27/16 at 23:09 Ondansetron HCl (Zofran Inj) 4 mg Q6H PRN IV NAUSEA AND/OR VOMITING Last administered on 09/03/16 21:47; Admin Dose 4 MG; Start 08/27/16 at 23:30 Acetaminophen/ Hydrocodone Bitart ([place] (5/325)) 1 tab Q6H PRN PO MODERATE PAIN LEVEL 4-6 Last administered on 08/28/16 19:59; Admin Dose 1 TAB; Start at 23:30 Docusate Sodium (Colace) 100 mg Q12H PRN PO CONSTIPATION; Start 08/27/16 at 23: 30 Magnesium Hydroxide (Milk Of Mag) 30 ml DAILY PRN PO CONSTIPATION; Start at 23:30 Bisacodyl (Dulcolax) 5 mg DAILY PRN PO CONSTIPATION; Start 08/27/16 at 23:30 Alprazolam (Xanax) 2 mg BID PRN PO ANXIETY Last administered on 09/03/16 11:50 ; Admin Dose 2 MG; Start 08/28/16 at 00:08 Hydromorphone HCl 1 mg 1 mg Q4H PRN IV PAIN Last administered on 09/04/16 08:28 ; Admin Dose 1 MG; Start 08/28/16 at 06:00 Ampicillin Sodium/ Sulbactam Sodium 100 ml @ 100 mls/hr Q6H IVPB Last administered on 09/04/16 08:19; Admin Dose 100 MLS/HR; Start 09/01/16 at 20:00 Ciprofloxacin/ Dextrose (Cipro Ivpb) 200 ml @ 200 mls/hr Q12 IVPB Last administered on 09/04/16 09:51; Admin Dose 200 MLS/HR; Start 09/01/16 at 21:00 IV Flush (NS 10 ml) 10 ml PRN PRN IV IV PROTOCOL; Start 09/03/16 at 14:30 Zolpidem Tartrate (Ambien) 5 mg HS PRN PO INSOMNIA Last administered on 00:00; Admin Dose 5 MG; Start 09/03/16 at 22:30 JESUS AGUILAR MD Sep 04, 2016 10:24
[2016-09-04] MEDS ORDERED: SOD CHLORIDE 0.9% 100 ML ONE (10:31)
[2016-09-04] MEDS ORDERED: IOHEXOL 300MG/ML 150 ML BTL ONE (10:31)
[2016-09-04] MEDS: SERTRALINE 100 MG TAB PO SCH (10:45)
[2016-09-04] MEDS: PANTOPRAZOLE (EC) 40 MG TAB PO SCH (10:45)
[2016-09-04] MEDS: ONDANSETRON 4 MG INJ IV PRN (10:45)
--- NOTE | 2016-09-04 14:09 | RADRPT ---
PROCEDURE: CT Abdomen with contrast CLINICAL INDICATION: Follow-up drainage of sub hepatic abscess TECHNIQUE: Transaxial images were obtained through the abdomen on a multi-slice scanner following the intravenous administration of iodinated contrast. No oral contrast had previously been given. S agittal and coronal re-formations were subsequently reconstructed. One or more of the following dose reduction techniques were used: - Automated exposure control. - Adjustment of the mA and/or kV according to patient size. - Use of iterative reconstruction technique. Radiation dose: CTDIvol = 23.01 mGy; DLP = 1095.89 mGy-cm. COMPARISON: 08/08/2016 FINDINGS: Lung bases: Increasing discoid atelectasis is seen at the lung bases with development of trace gravi tating bilateral pleural fluid accumulations. There is also now a trace of pericardial effusion. A catheter has been placed with the tip at the atrial caval junction. Liver: The liver remains enlarged. No focal lesion is evident. The hepatic and portal veins are pa tent. Gallbladder: Surgical nitin are again seen in the gallbladder fossa. Bile ducts: A biliary stent is evident which does not extend superior to the pancreatic head and ext ends well into the duodenum. No bile duct dilatation is appreciable.. Pancreas: Appears normal with no mass or inflammation evident. Spleen: The spleen is borderline enlarged. Adrenals: Normal with no mass identified. Kidneys and ureters: The kidneys enhance normally and are normal in size and there is no mass, patho logical calcification, or hydronephrosis evident. There is mild perinephric stranding seen about th e right kidney.. The visualized ureters are normal in caliber and no ureteroliths are identified. Stomach, bowel, and Mesentery: The stomach appears unremarkable. There is no evidence of bowel obst ruction or inflammation. Appendix: The appendix is not included. Peritoneum: A pigtail drainage catheter is again seen to the anterior arm a right anterior approach and extends into an abscess cavity that measures 5.4 x 4.9 x 2.2 cm, having decreased slightly in si ze from the previous study. There is surrounding inflammatory change extending into the omentum and intraperitoneal fat. There is a new loculated fluid collection seen inferior to the tip of the rig ht lobe of the liver and extending slightly medially measuring 6.1 x 6.0 x 4.4 cm. This demonstrate s a very thickened wall with little peripheral enhancement. There is a small amount of right subphre allen fluid. No free air is identified. There is a small fat containing umbilical hernia. Aorta: Normal in caliber with no aneurysmal dilatation. IVC: Unremarkable. Lymph nodes: A few shotty retroperitoneal nodes are evident. Osseous structures: The osseous elements appear intact. Soft tissues: Stranding is seen within the subcutaneous fat compatible with edema most extensive la terally on the right. IMPRESSION: 1. Since the previous CT of 08/08/2016, the percutaneous drainage catheter is again seen to be in p lace and a pigtail remains within an abscess cavity located anterolateral to the inferior right lobe . The abscess has somewhat decreased in size now measuring 5.4 x 4.9 x 2.2 cm with surrounding infl ammatory change. There is a new loculated fluid collection seen to extend medial to the inferior ti p of the right lobe of the liver measuring 6.1 x 6.0 x 4.4 cm suspicious for a second developing abs cess. 2. There continues to be a small amount of right subphrenic fluid. Arm 3. The liver remains enlarged but no focal lesion. The spleen is borderline enlarged. 4. Status post cholecystectomy with a low-lying biliary stent again in place. 5. Right perinephric stranding is again evident. 6. Increasing discoid atelectasis seen at the lung bases with development of trace bilateral pleura l fluid accumulations along with a trace of pericardial effusion. 7. A catheter is now seen at the atriocaval junction. Physician Sylvia Date Time Electronically viewed and signed by Physician Sylvia on 09/04/2016 14:09 /
--- NOTE | 2016-09-04 14:18 | CONS ---
Date/Time of Note Date/Time of Note DATE: 09/04/16 TIME: 14:14 Assessment/Plan Assessment/Plan Chief Complaint/Hosp Course SUBJECTIVE: No acute changes. No fevers. ANTIMICROBIALS: 1. Unasyn. 2. Ciprofloxacin. PHYSICAL EXAMINATION: GENERAL: This is a morbidly obese, middle-aged woman, who is alert, in no distress. HEENT: Head atraumatic, normocephalic. Sclerae anicteric. Buccal mucosa dry. NECK: Supple. CHEST: Rise symmetrical. Breath sounds diminished to bases. HEART: S1, S2. ABDOMEN: Soft. Bowel sounds present. EXTREMITIES: Without cyanosis. ASSESSMENT: 1. Recurrent intra-abdominal abscess, status post CT-guided drainage with catheter placement and drainage culture growing enterococcus species, E. coli and coagulase-negative staph species, no anaerobes. 2. Systemic inflammatory response syndrome secondary to above. 3. History of cholecystectomy. 4. History of biliary leak, status post stent placement in 07/2016. 5. Obesity. PLAN: The patient remains stable, will change Unasyn to Vanco which covers both Enterococcus and Staph, add Flagyl, continue Cipro, f/u surgical rec-s=== > poss developing new liver abscess per repeat CT abdomen [facility] staff Problems: Consultation Date/Type/Reason Admit Date/Time August 27, 2016 at 16:10 Initial Consult Date Type of Consultation: ID Exam/Review of Systems Vital Signs Vitals Vital Signs Date Time Temp Pulse Resp B/P Pulse Ox O2 Delivery O2 Flow Rate FiO2 09/04/16 08:00 98.0 71 20 101/72 90 09/03/16 10:18 2.0 Intake and Output 09/03/16 09/03/16 09/04/16 15:00 23:00 07:00 Intake Total 300 ml 1240 ml 1930 ml Output Total 20 ml 60 ml Balance 280 ml 1240 ml 1870 ml Results Result Diagram: 09/04/16 0435 09/03/16 0435 Results 24 hrs Laboratory Tests Test 09/04/16 04:35 White Blood Count 11.3 H Red Blood Count 3.85 L Hemoglobin 9.7 L Hematocrit 30.7 L Mean Corpuscular Volume 79.7 L Mean Corpuscular Hemoglobin 25.2 L Mean Corpuscular Hemoglobin Concent 31.6 L Red Cell Distribution Width 14.6 H Platelet Count 532 H Mean Platelet Volume 8.7 Neutrophils % 54.5 Lymphocytes % 33.7 Monocytes % 7.6 Eosinophils % 3.0 Basophils % 0.5 Nucleated Red Blood Cells % 0.0 Neutrophils # 6.2 Lymphocytes # 3.8 H Monocytes # 0.9 Eosinophils # 0.3 Basophils # 0.1 Nucleated Red Blood Cells # 0.0 Medications Medications Current Medications Acetaminophen (Tylenol Tab) 650 mg Q6H PRN PO PAIN AND OR ELEVATED TEMP Last administered on 08/29/16 09:01; Admin Dose 650 MG; Start 08/27/16 at 20:00 Gabapentin (Neurontin) 300 mg Q6H PO Last administered on 09/03/16 14:33; Admin Dose 300 MG; Start 08/27/16 at 20:30 Losartan Potassium (Cozaar) 25 mg DAILY@21 PO Last administered on 09/03/16 20 :27; Admin Dose 25 MG; Start 08/27/16 at 21:00 Ondansetron HCl (Zofran Tab) 4 mg Q8H PRN PO NAUSEA AND/OR VOMITING; Start at 20:30 Pantoprazole (Protonix Tab) 40 mg DAILY PO Last administered on 09/04/16 10:45 ; Admin Dose 40 MG; Start 08/28/16 at 09:00 Sertraline HCl 200 mg 200 mg DAILY PO Last administered on 09/04/16 10:45; Admin Dose 200 MG; Start 08/28/16 at 09:00 Potassium Chloride/Sodium Chloride (NS-KCl 20 Meq) 1,000 ml @ 50 mls/hr Q20H IV Last administered on 09/04/16 04:36; Admin Dose 50 MLS/HR; Start 08/27/16 at 23:09 Ondansetron HCl (Zofran Inj) 4 mg Q6H PRN IV NAUSEA AND/OR VOMITING Last administered on 09/04/16 10:45; Admin Dose 4 MG; Start 08/27/16 at 23:30 Acetaminophen/ Hydrocodone Bitart ([place] (5/325)) 1 tab Q6H PRN PO MODERATE PAIN LEVEL 4-6 Last administered on 08/28/16 19:59; Admin Dose 1 TAB; Start at 23:30 Docusate Sodium (Colace) 100 mg Q12H PRN PO CONSTIPATION; Start 08/27/16 at 23: 30 Magnesium Hydroxide (Milk Of Mag) 30 ml DAILY PRN PO CONSTIPATION; Start at 23:30 Bisacodyl (Dulcolax) 5 mg DAILY PRN PO CONSTIPATION; Start 08/27/16 at 23:30 Alprazolam (Xanax) 2 mg BID PRN PO ANXIETY Last administered on 09/03/16 11:50 ; Admin Dose 2 MG; Start 08/28/16 at 00:08 Hydromorphone HCl 1 mg 1 mg Q4H PRN IV PAIN Last administered on 09/04/16 12:31 ; Admin Dose 1 MG; Start 08/28/16 at 06:00 Ampicillin Sodium/ Sulbactam Sodium 100 ml @ 100 mls/hr Q6H IVPB Last administered on 09/04/16 08:19; Admin Dose 100 MLS/HR; Start 09/01/16 at 20:00 Ciprofloxacin/ Dextrose (Cipro Ivpb) 200 ml @ 200 mls/hr Q12 IVPB Last administered on 09/04/16 09:51; Admin Dose 200 MLS/HR; Start 09/01/16 at 21:00 IV Flush (NS 10 ml) 10 ml PRN PRN IV IV PROTOCOL; Start 09/03/16 at 14:30 Zolpidem Tartrate (Ambien) 5 mg HS PRN PO INSOMNIA Last administered on 00:00; Admin Dose 5 MG; Start 09/03/16 at 22:30 ABNER BALL NP Sep 04, 2016 14:18
[2016-09-04] MEDS ORDERED: VANCOMYCIN IV PER PHARMACY XX SCH (14:30)
[2016-09-04] MEDS ORDERED: FENTAnyl 50 MCG/ML VIAL ONE ×3 (15:43→17:07)
[2016-09-04] MEDS ORDERED: LIDOCAINE 1% (MDV) 20 ML INJ ONE ×2 (15:43→17:01)
[2016-09-04] MEDS ORDERED: MIDAZOLAM 1 MG/ML 2 ML INJ ONE ×2 (15:44→16:14)
[2016-09-04] MEDS ORDERED: VANCOMYCIN 2 GM in SOD CHLORIDE 0.9% 500 ML IVPB ONE ×2 (16:00→22:00)
[2016-09-04] MEDS ORDERED: SOD CHLORIDE 0.9% 500 ML ONE (16:14)
[2016-09-04] MEDS ORDERED: HYDROmorphONE 1 MG/ML SYG IV STA (18:46)
--- NOTE | 2016-09-04 19:45 | PN ---
Date/Time of Note Date/Time of Note DATE: 09/04/16 TIME: 19:43 Assessment/Plan VTE Prophylaxis VTE Prophylaxis Intervention: other Lines/Catheters IV [facility] [place] Urinary Cath still in place: No Assessment/Plan Chief Complaint/Hosp Course IMPRESSION: 1. The patient has right upper quadrant abscess, possibly biloma. 2. The patient has leukocytosis. 3. History of cholecystectomy. 4. Anemia. 5. Hypokalemia. 6. Obesity. 7. Dyslipidemia. 8. Anxiety. 9. Insomnia. planantibiotic PER GI AND ID and surgery drain care d/w dr parra he will decide about surgical intervention Problems: Subjective 24 Hr Interval Summary Constitutional: other (s/p ct abd d/w dr parra) Exam/Review of Systems Vital Signs Vitals Vital Signs Date Time Temp Pulse Resp B/P Pulse Ox O2 Delivery O2 Flow Rate FiO2 09/04/16 17:40 98.6 70 24 129/71 95 Room Air 09/03/16 10:18 2.0 Intake and Output 09/03/16 09/03/16 09/04/16 15:00 23:00 07:00 Intake Total 300 ml 1240 ml 1930 ml Output Total 20 ml 60 ml Balance 280 ml 1240 ml 1870 ml Exam Respiratory: clear to auscultation Cardiovascular: regular rate and rhythm Gastrointestinal: bowel sounds (+), other (drain +), soft Results Result Diagram: 09/04/16 0435 09/03/16 0435 Results 24 hrs Laboratory Tests Test 09/04/16 04:35 White Blood Count 11.3 H Red Blood Count 3.85 L Hemoglobin 9.7 L Hematocrit 30.7 L Mean Corpuscular Volume 79.7 L Mean Corpuscular Hemoglobin 25.2 L Mean Corpuscular Hemoglobin Concent 31.6 L Red Cell Distribution Width 14.6 H Platelet Count 532 H Mean Platelet Volume 8.7 Neutrophils % 54.5 Lymphocytes % 33.7 Monocytes % 7.6 Eosinophils % 3.0 Basophils % 0.5 Nucleated Red Blood Cells % 0.0 Neutrophils # 6.2 Lymphocytes # 3.8 H Monocytes # 0.9 Eosinophils # 0.3 Basophils # 0.1 Nucleated Red Blood Cells # 0.0 Medications Medications Current Medications Acetaminophen (Tylenol Tab) 650 mg Q6H PRN PO PAIN AND OR ELEVATED TEMP Last administered on 08/29/16 09:01; Admin Dose 650 MG; Start 08/27/16 at 20:00 Gabapentin (Neurontin) 300 mg Q6H PO Last administered on 09/03/16 14:33; Admin Dose 300 MG; Start 08/27/16 at 20:30 Losartan Potassium (Cozaar) 25 mg DAILY@21 PO Last administered on 09/03/16 20 :27; Admin Dose 25 MG; Start 08/27/16 at 21:00 Ondansetron HCl (Zofran Tab) 4 mg Q8H PRN PO NAUSEA AND/OR VOMITING; Start at 20:30 Pantoprazole (Protonix Tab) 40 mg DAILY PO Last administered on 09/04/16 10:45 ; Admin Dose 40 MG; Start 08/28/16 at 09:00 Sertraline HCl 200 mg 200 mg DAILY PO Last administered on 09/04/16 10:45; Admin Dose 200 MG; Start 08/28/16 at 09:00 Potassium Chloride/Sodium Chloride (NS-KCl 20 Meq) 1,000 ml @ 50 mls/hr Q20H IV Last administered on 09/04/16 04:36; Admin Dose 50 MLS/HR; Start 08/27/16 at 23:09 Ondansetron HCl (Zofran Inj) 4 mg Q6H PRN IV NAUSEA AND/OR VOMITING Last administered on 09/04/16 10:45; Admin Dose 4 MG; Start 08/27/16 at 23:30 Acetaminophen/ Hydrocodone Bitart ([place] (5/325)) 1 tab Q6H PRN PO MODERATE PAIN LEVEL 4-6 Last administered on 08/28/16 19:59; Admin Dose 1 TAB; Start at 23:30 Docusate Sodium (Colace) 100 mg Q12H PRN PO CONSTIPATION; Start 08/27/16 at 23: 30 Magnesium Hydroxide (Milk Of Mag) 30 ml DAILY PRN PO CONSTIPATION; Start at 23:30 Bisacodyl (Dulcolax) 5 mg DAILY PRN PO CONSTIPATION; Start 08/27/16 at 23:30 Alprazolam (Xanax) 2 mg BID PRN PO ANXIETY Last administered on 09/03/16 11:50 ; Admin Dose 2 MG; Start 08/28/16 at 00:08 Hydromorphone HCl 1 mg 1 mg Q4H PRN IV PAIN Last administered on 09/04/16 18:22 ; Admin Dose 1 MG; Start 08/28/16 at 06:00 Ciprofloxacin/ Dextrose (Cipro Ivpb) 200 ml @ 200 mls/hr Q12 IVPB Last administered on 09/04/16 09:51; Admin Dose 200 MLS/HR; Start 09/01/16 at 21:00 IV Flush (NS 10 ml) 10 ml PRN PRN IV IV PROTOCOL; Start 09/03/16 at 14:30 Zolpidem Tartrate 5 mg 5 mg HS PRN PO INSOMNIA Last administered on 09/04/16 00 :00; Admin Dose 5 MG; Start 09/03/16 at 22:30 Metronidazole 100 ml @ 100 mls/hr Q8 IVPB ; Start 09/04/16 at 22:00 Vancomycin HCl 2 gm/Sodium Chloride 500 ml @ 125 mls/hr ONCE ONCE IVPB ; Start 09/04/16 at 16:00; Stop 09/04/16 at 19:59 Vancomycin HCl/ Sodium Chloride (Vancocin/NS) 250 ml @ 83.333 mls/ hr Q8H IVPB ; Start 09/05/16 at 00:00 Miscellaneous Information (*Rx Drug Level Order Reminder*) VANCO TROUGH AT 1, 500 ON 09/05 ONCE ONCE XX ; Start 09/05/16 at 15:00; Stop 09/05/16 at 15:01 JEB VAZQUEZ MD Sep 04, 2016 19:45
[2016-09-04] MEDS: ALPRAZOLAM 0.5 MG TAB PO PRN (21:20)
[2016-09-04] MEDS: metroNIDAZOLE 500 MG/NS (PMX) 100 ML IVPB SCH (21:36)
[2016-09-04] MEDS: LOSARTAN 25 MG TAB PO SCH (21:50)
[2016-09-05] MEDS ORDERED: VANCOMYCIN 1.25 GM in SOD CHLORIDE 0.9% 250 ML IVPB SCH ×2
[2016-09-05] MEDS: ZOLPIDEM 5 MG TAB PO PRN (01:01)
[2016-09-05] MEDS: HYDROmorphONE 1 MG/ML SYG IV PRN ×6 (02:27→22:31)
[2016-09-05] MEDS: GABAPENTIN 300 MG CAP PO SCH ×4 (02:29→20:30)
[2016-09-05] MEDS: metroNIDAZOLE 500 MG/NS (PMX) 100 ML IVPB SCH ×3 (05:02→22:31)
[2016-09-05] MEDS: VANCOMYCIN 1.25 GM in SOD CHLORIDE 0.9% 250 ML IVPB SCH ×3 (05:04→22:57)
[2016-09-05 05:31] LABS: ADD SCAN DIFF NO
[2016-09-05 05:57] LABS: BASOPHIL # 0.1 10^3/ul (0.0-0.1); BASOPHILS % 0.5 % (0.0-2.0); EOSINOPHILS # 0.3 10^3/ul (0.0-0.5); EOSINOPHILS % 2.6 % (0.0-7.0); HEMATOCRIT 31.7 % (37.0-47.0); HEMOGLOBIN 9.8 g/dl (12.0-16.0); LYMPHOCYTES # 3.5 10^3/ul (0.8-2.9); LYMPHOCYTES % 34.4 % (15.0-51.0); MEAN CORPUSCULAR HEMOGLOBIN 24.6 pg (29.0-33.0); MEAN CORPUSCULAR HGB CONC 30.9 g/dl (32.0-37.0); MEAN CORPUSCULAR VOLUME 79.4 fl (82.0-101.0); MEAN PLATELET VOLUME 8.9 fl (7.4-10.4); MONOCYTE # 0.8 10^3/ul (0.3-0.9); MONOCYTES % 7.4 % (0.0-11.0); NEUTROPHIL # 5.6 10^3/ul (1.6-7.5); NEUTROPHILS % 54.7 % (39.0-77.0); PLATELET COUNT 516 10^3/UL (140-415); RED BLOOD COUNT 3.99 10^6/ul (4.20-5.40); RED CELL DISTRIBUTION WIDTH 14.6 % (11.5-14.5); WHITE BLOOD COUNT 10.3 10^3/ul (4.8-10.8)
[2016-09-05 06:09] LABS: CREATININE 0.49 mg/dl (0.44-1.00)
[2016-09-05 06:24] LABS: BLOOD UREA NITROGEN < 2 mg/dl (7-20)
--- NOTE | 2016-09-05 06:43 | PN ---
DATE: 09/04/2016 SUBJECTIVE: No events. OBJECTIVE: VITAL SIGNS: Temperature 98.7, pulse 58, saturation. LABORATORY DATA: Today, WBC is 54% neutrophils. A CT scan was done today, which revealed there has been little change in the size of the abscess. I reviewed it with Dr. Romero from the radiology department. He believes that there is a new collection at the site of the previous cholecystectomy fossa and also suggested that we proceed with placement of another drain ____. The patient was taken downstairs to the radiology department at 4:[address] Romero aspirated the new collection which actually was a seroma. He told me 61 mL was aspirated previously placed second one, which was a malawian # 10. he changed it over the guide wire with # 12 to make it easier for the thick abscess to be drained, but also aspirated 30 mL of pus, sort of brownish color and did send it for culture ____. The patient tolerated the procedure well. I saw her in the radiology department. She is stable and we hope that bigger Yoruba catheter would drain the abscess cavity completely. PLAN We will watch and observe. If this wound would not successfully drain then it has to be opened . This was discussed with the patient _also saw the patient today. Discussed with the staff. Dictated By: BRADLY CORTES/ARGELIA Conf#: [id number] DID#: [id number] MTDD
[2016-09-05 07:30] VITALS: BP 96/50; RESP 16
[2016-09-05] MEDS: SERTRALINE 100 MG TAB PO SCH (08:32)
[2016-09-05] MEDS: CIPROFLOXACIN 400MG/D5W 200 ML IVPB SCH ×2 (08:32→20:40)
[2016-09-05] MEDS: PANTOPRAZOLE (EC) 40 MG TAB PO SCH (08:32)
--- NOTE | 2016-09-05 09:37 | RADRPT ---
PROCEDURE: CT-guided pelvic fluid collection drainage CLINICAL INDICATION: Perihepatic collection TECHNIQUE: Informed consent was obtained from the patient following careful explanation of the risks and benefi ts of the procedure. Versed and Fentanyl were administered by the nurse who monitored the patient. The patient was placed supine on the CT table and multiple axial images were obtained through the ab domen. A site in the patient's skin was selected and marked. The area was prepped and draped in the usual sterile fashion. 1% lidocaine with lidocaine was utilized for local anesthesia. The existing 10-Iranian drain was cut and a White wire was advanced through the catheter and coiled within the collection lateral to the right lobe of the liver. The catheter was exchanged over a wir e for a new 14-Iranian drainage catheter which was coiled within the collection. 30 cc of purulent f luid were aspirated and sent for culture and sensitivity. The catheter was connected to a drainage bag and sutured to the patient's skin. A sterile dressing was applied. The patient tolerated the procedure well. COMPARISON: CT abdomen/pelvis from 09/04/2016 FINDINGS: Loculated fluid collection lateral to the right lobe of the liver. IMPRESSION: Exchange and upsizing of a 10-Iranian catheter within a perihepatic collection to a 14-Iranian cathete r. 30 cc of purulent fluid were aspirated and sent for culture and sensitivity. RPTAT: AA Physician Colby Date Time Electronically viewed and signed by Physician Colby on 09/05/2016 09:36 /
--- NOTE | 2016-09-05 09:40 | RADRPT ---
PROCEDURE: CT-guided drainage of a subhepatic collection CLINICAL INDICATION: Subhepatic fluid collection TECHNIQUE: Informed consent was obtained from the patient following careful explanation of the risks and benefi ts of the procedure. Versed and Fentanyl were administered by the nurse who monitored the patient. The patient was placed supine on the CT table and multiple axial images were obtained through the up per abdomen. A site in the patient's skin was selected and marked. The area was prepped and draped in the usual sterile fashion. 1% lidocaine with lidocaine was utilized for local anesthesia. Under direct CT guidance, a 19 Ga Motivating [place] catheter was advanced into a collection below the right lobe of the liver. 65 cc of clear yellow fluid were aspirated and sent for culture and sensitivity. The catheter was then removed. The patient tolerated the procedure well. COMPARISON: CT abdomen/pelvis from 09/04/2016 FINDINGS: 5.6 x 4.3 cm perihepatic fluid collection which is likely a seroma. IMPRESSION: Successful CT-guided aspiration of a 5.6 cm perihepatic fluid collection which is likely a seroma. The fluid was sent for culture and sensitivity. RPTAT: AA Physician Colby Date Time Electronically viewed and signed by Physician Colby on 09/05/2016 09:40 /
[2016-09-05] MEDS: ONDANSETRON 4 MG INJ IV PRN (12:48)
--- NOTE | 2016-09-05 13:05 | PN ---
Date/Time of Note Date/Time of Note DATE: 09/05/16 TIME: 13:03 Assessment/Plan VTE Prophylaxis VTE Prophylaxis Intervention: ambulation Lines/Catheters IV Catheter Type (from Nrs): PICC Line Central line still needed: Yes Urinary Cath still in place: No Assessment/Plan Chief Complaint/Hosp Course 1. The patient has right upper quadrant abscess, sp drain insertion 2. leukocytosis, better. 3. History of cholecystectomy. 4. Anemia. 5. Hypokalemia. 6. Obesity. 7. Dyslipidemia. 8. Anxiety. 9. Insomnia. Problems: Assessment/Plan 1. Stop Iv fluids 2. Surgical plan per dr Georges Subjective 24 Hr Interval Summary Constitutional: improved, no complaints Respiratory: no complaints Cardiovascular: no complaints Gastrointestinal: pain Genitourinary: no complaints Musculoskeletal: no complaints Skin: no complaints Exam/Review of Systems Vital Signs Vitals Vital Signs Date Time Temp Pulse Resp B/P Pulse Ox O2 Delivery O2 Flow Rate FiO2 09/05/16 07:30 98.4 68 16 96/50 92 09/04/16 17:40 Simple Mask 2 Intake and Output 09/04/16 09/04/16 09/05/16 15:00 23:00 07:00 Intake Total 550 ml 900 ml 768 ml Output Total 10 ml 65 ml Balance 550 ml 890 ml 703 ml Exam Constitutional: alert, oriented Psych: no complaints Head: normocephalic Eyes: nl conjunctiva Neck: supple Respiratory: clear to auscultation Cardiovascular: regular rate and rhythm Gastrointestinal: other (drainage out with SARAVANAN), soft Results Result Diagram: 09/05/16 0425 09/05/16 0425 Results 24 hrs Laboratory Tests Test 09/05/16 04:25 White Blood Count 10.3 Red Blood Count 3.99 L Hemoglobin 9.8 L Hematocrit 31.7 L Mean Corpuscular Volume 79.4 L Mean Corpuscular Hemoglobin 24.6 L Mean Corpuscular Hemoglobin Concent 30.9 L Red Cell Distribution Width 14.6 H Platelet Count 516 H Mean Platelet Volume 8.9 Neutrophils % 54.7 Lymphocytes % 34.4 Monocytes % 7.4 Eosinophils % 2.6 Basophils % 0.5 Nucleated Red Blood Cells % 0.0 Neutrophils # 5.6 Lymphocytes # 3.5 H Monocytes # 0.8 Eosinophils # 0.3 Basophils # 0.1 Nucleated Red Blood Cells # 0.0 Blood Urea Nitrogen < 2 L Creatinine 0.49 Medications Medications Current Medications Acetaminophen (Tylenol Tab) 650 mg Q6H PRN PO PAIN AND OR ELEVATED TEMP Last administered on 08/29/16 09:01; Admin Dose 650 MG; Start 08/27/16 at 20:00 Gabapentin (Neurontin) 300 mg Q6H PO Last administered on 09/05/16 08:32; Admin Dose 300 MG; Start 08/27/16 at 20:30 Losartan Potassium (Cozaar) 25 mg DAILY@21 PO Last administered on 09/04/16 21: 50; Admin Dose 25 MG; Start 08/27/16 at 21:00 Ondansetron HCl (Zofran Tab) 4 mg Q8H PRN PO NAUSEA AND/OR VOMITING; Start at 20:30 Pantoprazole (Protonix Tab) 40 mg DAILY PO Last administered on 09/05/16 08:32 ; Admin Dose 40 MG; Start 08/28/16 at 09:00 Sertraline HCl 200 mg 200 mg DAILY PO Last administered on 09/05/16 08:32; Admin Dose 200 MG; Start 08/28/16 at 09:00 Potassium Chloride/Sodium Chloride (NS-KCl 20 Meq) 1,000 ml @ 50 mls/hr Q20H IV Last administered on 09/04/16 22:59; Admin Dose 50 MLS/HR; Start 08/27/16 at 23:09 Ondansetron HCl (Zofran Inj) 4 mg Q6H PRN IV NAUSEA AND/OR VOMITING Last administered on 09/05/16 12:48; Admin Dose 4 MG; Start 08/27/16 at 23:30 Acetaminophen/ Hydrocodone Bitart ([place] (5/325)) 1 tab Q6H PRN PO MODERATE PAIN LEVEL 4-6 Last administered on 08/28/16 19:59; Admin Dose 1 TAB; Start at 23:30 Docusate Sodium (Colace) 100 mg Q12H PRN PO CONSTIPATION; Start 08/27/16 at 23: 30 Magnesium Hydroxide (Milk Of Mag) 30 ml DAILY PRN PO CONSTIPATION; Start at 23:30 Bisacodyl (Dulcolax) 5 mg DAILY PRN PO CONSTIPATION; Start 08/27/16 at 23:30 Alprazolam (Xanax) 2 mg BID PRN PO ANXIETY Last administered on 09/04/16 21:20 ; Admin Dose 2 MG; Start 08/28/16 at 00:08 Hydromorphone HCl 1 mg 1 mg Q4H PRN IV PAIN Last administered on 09/05/16 10:36 ; Admin Dose 1 MG; Start 08/28/16 at 06:00 Ciprofloxacin/ Dextrose (Cipro Ivpb) 200 ml @ 200 mls/hr Q12 IVPB Last administered on 09/05/16 08:32; Admin Dose 200 MLS/HR; Start 09/01/16 at 21:00 IV Flush (NS 10 ml) 10 ml PRN PRN IV IV PROTOCOL; Start 09/03/16 at 14:30 Zolpidem Tartrate 5 mg 5 mg HS PRN PO INSOMNIA Last administered on 09/05/16 01 :01; Admin Dose 5 MG; Start 09/03/16 at 22:30 Metronidazole 100 ml @ 100 mls/hr Q8 IVPB Last administered on 09/05/16 05:02 ; Admin Dose 100 MLS/HR; Start 09/04/16 at 22:00 Vancomycin HCl/ Sodium Chloride (Vancocin/NS) 250 ml @ 83.333 mls/ hr Q8H IVPB Last administered on 09/05/16 05:04; Admin Dose 83.333 MLS/HR; Start 09/05/16 at 06:00 Miscellaneous Information (*Rx Drug Level Order Reminder*) VANCO TR LEVEL PRIOR... ONCE ONCE XX ; Start 09/05/16 at 21:00; Stop 09/05/16 at 21:01 DEVONTE LORD Sep 05, 2016 13:05
[2016-09-05 14:23] LABS: ADD SCAN DIFF NO
[2016-09-05 14:25] LABS: BASOPHIL # 0.1 10^3/ul (0.0-0.1); BASOPHILS % 0.6 % (0.0-2.0); EOSINOPHILS # 0.3 10^3/ul (0.0-0.5); EOSINOPHILS % 2.8 % (0.0-7.0); HEMATOCRIT 31.4 % (37.0-47.0); HEMOGLOBIN 9.9 g/dl (12.0-16.0); LYMPHOCYTES # 2.6 10^3/ul (0.8-2.9); LYMPHOCYTES % 27.7 % (15.0-51.0); MEAN CORPUSCULAR HGB CONC 31.5 g/dl (32.0-37.0); MEAN CORPUSCULAR VOLUME 79.3 fl (82.0-101.0); MEAN PLATELET VOLUME 8.6 fl (7.4-10.4); MONOCYTE # 0.7 10^3/ul (0.3-0.9); MONOCYTES % 7.5 % (0.0-11.0); NEUTROPHIL # 5.8 10^3/ul (1.6-7.5); PLATELET COUNT 490 10^3/UL (140-415); RED BLOOD COUNT 3.96 10^6/ul (4.20-5.40); RED CELL DISTRIBUTION WIDTH 14.6 % (11.5-14.5); WHITE BLOOD COUNT 9.5 10^3/ul (4.8-10.8)
--- NOTE | 2016-09-05 14:43 | PN ---
DATE: 09/05/2016 SUBJECTIVE: The patient is lying comfortably in bed. No fevers. Vital signs stable. WBC 10.3, pl atelets 516, no shift, no bands. BUN 2, creatinine 0.49. MICROBIOLOGY: Aspirated abdominal fluid culture yesterday pending. INDWELLINGS: Right-sided intra-abdominal drainage catheter. ANTIMICROBIALS: 1. Vancomycin. 2. Ciprofloxacin. 3. Flagyl. PHYSICAL EXAMINATION: GENERAL: This is a morbidly obese, well-developed, middle-aged woman who is alert, in no d istress. HEENT: Head atraumatic, normocephalic. Sclerae anicteric. Buccal mucosa pink. NECK: Supple. CHEST: Rise symmetrical. Breath sounds clear. HEART: S1, S2. ABDOMEN: Soft. Bowel tones present. ASSESSMENT: 1. Recurrent intraabdominal abscess status post CT-guided drainage aspiration with a catheter excha nged to a bigger size yesterday and 30 mL of purulent fluid being aspirated during procedure and sen t for culture. 2. Status post CT-guided aspiration of perihepatic fluid, likely seroma on 09/04/2016. 3. History of laparoscopic cholecystectomy and biliary leak, status post stent placement in 07/2016 . 4. Obesity. 5. Systemic inflammatory response syndrome secondary to above. PLAN: The patient remains stable, covered with appropriate antibiotics, pending fluid cultures. Charmaine wen surgical recommendations. Dictated By: ABNER BALL BACTERIOLOGIST FISHERY for DALTON LOPEZ/NTS Conf#: [id number] DID#: [id number]
[2016-09-05 14:54] LABS: CALCIUM 8.3 mg/dl (8.4-10.2); CREATININE 0.49 mg/dl (0.44-1.00)
[2016-09-05] MEDS: ALPRAZOLAM 0.5 MG TAB PO PRN ×2 (15:29→20:40)
--- NOTE | 2016-09-05 17:20 | CONS ---
Date/Time of Note Date/Time of Note DATE: 09/05/16 TIME: 17:19 Assessment/Plan Assessment/Plan Additional Assessment/Plan Additional Assessment/Plan Additional Assessment/Plan ASSESSMENT: 1. Systemic inflammatory response syndrome with fevers and leukocytosis secondary to #2. 2. Recurrent intraabdominal abscess status post CT-guided drainage, with fluid cultures growing gram-negative rods. 3. History of cholecystectomy. 4. History of biliary leak, status post stent placement on 07/19/2016. 5. Obesity PLAN: 1. continue IR drainage of the intraabdominal abscess. The pigtail catheter was changed from 10 [place] to 14 [place] and 30 cc of purulent material removed. There was also seroma clear fluid removed which was a second collection 2. Abx per ID [employer] sales consultant. 3. Follow final cultures. 4. repeat CT Thursday to assess for persistence of intraabdominal abscess 5. Patient is also due for the removal of the stent Consultation Date/Type/Reason Admit Date/Time August 27, 2016 at 16:10 Type of Consultation: ID [id number] HR Interval Summary Constitutional: improved Exam/Review of Systems Vital Signs Vitals Vital Signs Date Time Temp Pulse Resp B/P Pulse Ox O2 Delivery O2 Flow Rate FiO2 09/05/16 07:30 98.4 68 16 96/50 92 09/04/16 17:40 Simple Mask 2 Intake and Output 09/04/16 09/04/16 09/05/16 15:00 23:00 07:00 Intake Total 550 ml 900 ml 768 ml Output Total 10 ml 65 ml Balance 550 ml 890 ml 703 ml Exam Constitutional: alert, oriented, well developed Psych: nl mood/affect, no complaints Head: atraumatic, normocephalic Eyes: EOMI, PERRL, nl conjunctiva, nl lids, nl sclera ENMT: nl external ears & nose, nl lips & teeth, nl nasal mucosa & septum Neck: non-tender, supple Respiratory: clear to auscultation, normal air movement Cardiovascular: nl pulses, regular rate and rhythm Gastrointestinal: nl liver, spleen, non-tender, soft Musculoskeletal: nl extremities to inspection, nl gait and stance Extremities: normal pulses Neurological: FOOD CLERK II-XII intact, nl mental status, nl speech, nl strength Skin: nl turgor, No rash or lesions Lymph: nl lymph nodes Results Result Diagram: 09/05/16 1410 09/05/16 1410 Results 24 hrs Laboratory Tests Test 09/05/16 04:25 09/05/16 14:10 White Blood Count 10.3 9.5 Red Blood Count 3.99 L 3.96 L Hemoglobin 9.8 L 9.9 L Hematocrit 31.7 L 31.4 L Mean Corpuscular Volume 79.4 L 79.3 L Mean Corpuscular Hemoglobin 24.6 L 25.0 L Mean Corpuscular Hemoglobin Concent 30.9 L 31.5 L Red Cell Distribution Width 14.6 H 14.6 H Platelet Count 516 H 490 H Mean Platelet Volume 8.9 8.6 Neutrophils % 54.7 61.0 Lymphocytes % 34.4 27.7 Monocytes % 7.4 7.5 Eosinophils % 2.6 2.8 Basophils % 0.5 0.6 Nucleated Red Blood Cells % 0.0 0.0 Neutrophils # 5.6 5.8 Lymphocytes # 3.5 H 2.6 Monocytes # 0.8 0.7 Eosinophils # 0.3 0.3 Basophils # 0.1 0.1 Nucleated Red Blood Cells # 0.0 0.0 Blood Urea Nitrogen < 2 L 3 L Creatinine 0.49 0.49 Sodium Level 142 Potassium Level 4.0 Chloride Level 106 Carbon Dioxide Level 29 Anion Gap 11 Glucose Level 92 Calcium Level 8.3 L Medications Medications Current Medications Acetaminophen (Tylenol Tab) 650 mg Q6H PRN PO PAIN AND OR ELEVATED TEMP Last administered on 08/29/16 09:01; Admin Dose 650 MG; Start 08/27/16 at 20:00 Gabapentin (Neurontin) 300 mg Q6H PO Last administered on 09/05/16 08:32; Admin Dose 300 MG; Start 08/27/16 at 20:30 Losartan Potassium (Cozaar) 25 mg DAILY@21 PO Last administered on 09/04/16 21: 50; Admin Dose 25 MG; Start 08/27/16 at 21:00 Ondansetron HCl (Zofran Tab) 4 mg Q8H PRN PO NAUSEA AND/OR VOMITING; Start at 20:30 Pantoprazole (Protonix Tab) 40 mg DAILY PO Last administered on 09/05/16 08:32 ; Admin Dose 40 MG; Start 08/28/16 at 09:00 Sertraline HCl (Zoloft) 200 mg DAILY PO Last administered on 09/05/16 08:32; Admin Dose 200 MG; Start 08/28/16 at 09:00 Ondansetron HCl (Zofran Inj) 4 mg Q6H PRN IV NAUSEA AND/OR VOMITING Last administered on 09/05/16 12:48; Admin Dose 4 MG; Start 08/27/16 at 23:30 Acetaminophen/ Hydrocodone Bitart ([place] (5/325)) 1 tab Q6H PRN PO MODERATE PAIN LEVEL 4-6 Last administered on 08/28/16 19:59; Admin Dose 1 TAB; Start at 23:30 Docusate Sodium (Colace) 100 mg Q12H PRN PO CONSTIPATION; Start 08/27/16 at 23: 30 Magnesium Hydroxide (Milk Of Mag) 30 ml DAILY PRN PO CONSTIPATION; Start at 23:30 Bisacodyl (Dulcolax) 5 mg DAILY PRN PO CONSTIPATION; Start 08/27/16 at 23:30 Alprazolam (Xanax) 2 mg BID PRN PO ANXIETY Last administered on 09/05/16 15:29 ; Admin Dose 2 MG; Start 08/28/16 at 00:08 Hydromorphone HCl 1 mg 1 mg Q4H PRN IV PAIN Last administered on 09/05/16 14:27 ; Admin Dose 1 MG; Start 08/28/16 at 06:00 Ciprofloxacin/ Dextrose (Cipro Ivpb) 200 ml @ 200 mls/hr Q12 IVPB Last administered on 09/05/16 08:32; Admin Dose 200 MLS/HR; Start 09/01/16 at 21:00 IV Flush (NS 10 ml) 10 ml PRN PRN IV IV PROTOCOL; Start 09/03/16 at 14:30 Zolpidem Tartrate 5 mg 5 mg HS PRN PO INSOMNIA Last administered on 09/05/16 01 :01; Admin Dose 5 MG; Start 09/03/16 at 22:30 Metronidazole 100 ml @ 100 mls/hr Q8 IVPB Last administered on 09/05/16 14:27 ; Admin Dose 100 MLS/HR; Start 09/04/16 at 22:00 Vancomycin HCl/ Sodium Chloride (Vancocin/NS) 250 ml @ 83.333 mls/ hr Q8H IVPB Last administered on 09/05/16t 14:27; Admin Dose 83.333 MLS/HR; Start 09/05/16 at 06:00 Miscellaneous Information (*Rx Drug Level Order Reminder*) VANCO TR LEVEL PRIOR... ONCE ONCE XX ; Start 09/05/16 at 21:00; Stop 09/05/16 at 21:01 JESUS AGUILAR MD Sep 05, 2016 17:20
[2016-09-05 21:54] VITALS: BP 111/69; RESP 19
[2016-09-05] MEDS: LOSARTAN 25 MG TAB PO SCH (22:34)
[2016-09-06] MEDS: VANCOMYCIN 1.25 GM in SOD CHLORIDE 0.9% 250 ML IVPB SCH ×2 (00:34→06:55)
[2016-09-06] MEDS: GABAPENTIN 300 MG CAP PO SCH ×4 (02:30→20:03)
[2016-09-06] MEDS: HYDROmorphONE 1 MG/ML SYG IV PRN ×6 (02:36→22:45)
[2016-09-06] MEDS: ZOLPIDEM 5 MG TAB PO PRN ×2 (02:37→23:41)
[2016-09-06] MEDS: LOSARTAN 25 MG TAB PO SCH (02:39)
[2016-09-06] MEDS: metroNIDAZOLE 500 MG/NS (PMX) 100 ML IVPB SCH ×3 (05:34→23:17)
[2016-09-06 08:00] VITALS: BP 114/68; RESP 18
[2016-09-06] MEDS: PANTOPRAZOLE (EC) 40 MG TAB PO SCH (09:07)
[2016-09-06] MEDS: CIPROFLOXACIN 400MG/D5W 200 ML IVPB SCH ×2 (09:08→20:04)
[2016-09-06] MEDS: SERTRALINE 100 MG TAB PO SCH (09:10)
--- NOTE | 2016-09-06 13:03 | PN ---
Date/Time of Note Date/Time of Note DATE: 09/06/16 TIME: 13:02 Assessment/Plan VTE Prophylaxis VTE Prophylaxis Intervention: ambulation Lines/Catheters IV Catheter Type (from Nrs): PICC Line Central line still needed: Yes Urinary Cath still in place: No Assessment/Plan Chief Complaint/Hosp Course 1. The patient has right upper quadrant abscess, sp drain insertion 2. leukocytosis, better. 3. History of cholecystectomy. 4. Anemia. 5. Hypokalemia. 6. Obesity. 7. Dyslipidemia. 8. Anxiety. 9. Insomnia. Problems: Assessment/Plan 1. Per surgery I and D Subjective 24 Hr Interval Summary Constitutional: improved, no complaints Exam/Review of Systems Vital Signs Vitals Vital Signs Date Time Temp Pulse Resp B/P Pulse Ox O2 Delivery O2 Flow Rate FiO2 09/06/16 08:00 98.7 60 18 114/68 93 09/06/16 00:56 21 09/04/16 17:40 Simple Mask 2 Intake and Output 09/05/16 09/05/16 09/06/16 15:00 23:00 07:00 Intake Total 200 ml 1770 ml 1250 ml Output Total 30 ml Balance 200 ml 1740 ml 1250 ml Exam Constitutional: alert, oriented Psych: no complaints Eyes: nl conjunctiva ENMT: nl external ears & nose Respiratory: clear to auscultation Cardiovascular: regular rate and rhythm Gastrointestinal: other (pain on palpation , SARAVANAN drain), soft, surgical scars Results Result Diagram: 09/05/16 1410 09/05/16 1410 Results 24 hrs Laboratory Tests Test 09/05/16 14:10 09/05/16 21:00 White Blood Count 9.5 Red Blood Count 3.96 L Hemoglobin 9.9 L Hematocrit 31.4 L Mean Corpuscular Volume 79.3 L Mean Corpuscular Hemoglobin 25.0 L Mean Corpuscular Hemoglobin Concent 31.5 L Red Cell Distribution Width 14.6 H Platelet Count 490 H Mean Platelet Volume 8.6 Neutrophils % 61.0 Lymphocytes % 27.7 Monocytes % 7.5 Eosinophils % 2.8 Basophils % 0.6 Nucleated Red Blood Cells % 0.0 Neutrophils # 5.8 Lymphocytes # 2.6 Monocytes # 0.7 Eosinophils # 0.3 Basophils # 0.1 Nucleated Red Blood Cells # 0.0 Sodium Level 142 Potassium Level 4.0 Chloride Level 106 Carbon Dioxide Level 29 Anion Gap 11 Blood Urea Nitrogen 3 L Creatinine 0.49 Glucose Level 92 Calcium Level 8.3 L Vancomycin Level Trough 16.9 Medications Medications Current Medications Acetaminophen (Tylenol Tab) 650 mg Q6H PRN PO PAIN AND OR ELEVATED TEMP Last administered on 08/29/16 09:01; Admin Dose 650 MG; Start 08/27/16 at 20:00 Gabapentin (Neurontin) 300 mg Q6H PO Last administered on 09/05/16 08:32; Admin Dose 300 MG; Start 08/27/16 at 20:30 Losartan Potassium (Cozaar) 25 mg DAILY@21 PO Last administered on 09/06/16 02: 39; Admin Dose 25 MG; Start 08/27/16 at 21:00 Ondansetron HCl (Zofran Tab) 4 mg Q8H PRN PO NAUSEA AND/OR VOMITING; Start at 20:30 Pantoprazole (Protonix Tab) 40 mg DAILY PO Last administered on 09/06/16 09:07 ; Admin Dose 40 MG; Start 08/28/16 at 09:00 Sertraline HCl (Zoloft) 200 mg DAILY PO Last administered on 09/06/16 09:10; Admin Dose 200 MG; Start 08/28/16 at 09:00 Ondansetron HCl (Zofran Inj) 4 mg Q6H PRN IV NAUSEA AND/OR VOMITING Last administered on 09/05/16 12:48; Admin Dose 4 MG; Start 08/27/16 at 23:30 Acetaminophen/ Hydrocodone Bitart ([place] (5/325)) 1 tab Q6H PRN PO MODERATE PAIN LEVEL 4-6 Last administered on 08/28/16 19:59; Admin Dose 1 TAB; Start at 23:30 Docusate Sodium (Colace) 100 mg Q12H PRN PO CONSTIPATION; Start 08/27/16 at 23: 30 Magnesium Hydroxide (Milk Of Mag) 30 ml DAILY PRN PO CONSTIPATION; Start at 23:30 Bisacodyl (Dulcolax) 5 mg DAILY PRN PO CONSTIPATION; Start 08/27/16 at 23:30 Alprazolam (Xanax) 2 mg BID PRN PO ANXIETY Last administered on 09/05/16 20:40 ; Admin Dose 2 MG; Start 08/28/16 at 00:08 Hydromorphone HCl 1 mg 1 mg Q4H PRN IV PAIN Last administered on 09/06/16 10:43 ; Admin Dose 1 MG; Start 08/28/16 at 06:00 Ciprofloxacin/ Dextrose (Cipro Ivpb) 200 ml @ 200 mls/hr Q12 IVPB Last administered on 09/06/16 09:08; Admin Dose 200 MLS/HR; Start 09/01/16 at 21:00 IV Flush (NS 10 ml) 10 ml PRN PRN IV IV PROTOCOL; Start 09/03/16 at 14:30 Zolpidem Tartrate 5 mg 5 mg HS PRN PO INSOMNIA Last administered on 09/06/16 02 :37; Admin Dose 5 MG; Start 09/03/16 at 22:30 Metronidazole 100 ml @ 100 mls/hr Q8 IVPB Last administered on 09/06/16 05:34 ; Admin Dose 100 MLS/HR; Start 09/04/16 at 22:00 Vancomycin HCl (Vancocin) 250 ml @ 125 mls/hr Q8H IVPB ; Start 09/06/16 at 13:00 DEVONTE LORD Sep 06, 2016 13:03
[2016-09-06] MEDS: VANCOMYCIN 1 GM in NS 250 ML IVPB SCH ×2 (13:34→21:12)
[2016-09-06] MEDS: ALPRAZOLAM 0.5 MG TAB PO PRN (13:34)
--- NOTE | 2016-09-06 15:12 | CONS ---
Date/Time of Note Date/Time of Note DATE: 09/06/16 TIME: 15:09 Assessment/Plan Assessment/Plan Chief Complaint/Hosp Course SUBJECTIVE: o acute events. No fevers. Alert, tolerates diet. . MICROBIOLOGY: Aspirated abdominal fluid culture from 09/05 pending. INDWELLINGS: Right-sided intra-abdominal drainage catheter. ANTIMICROBIALS: 1. Vancomycin. 2. Ciprofloxacin. 3. Flagyl. PHYSICAL EXAMINATION: GENERAL: This is a morbidly obese, well-developed, middle-aged woman who is alert, in no distress. HEENT: Head atraumatic, normocephalic. Sclerae anicteric. Buccal mucosa pink. NECK: Supple. CHEST: Rise symmetrical. Breath sounds clear. HEART: S1, S2. ABDOMEN: Soft. Bowel tones present. ASSESSMENT: 1. Recurrent intraabdominal abscess status post CT-guided drainage aspiration with a catheter exchanged to a bigger size on 09/05/16 and 30 mL of purulent fluid being aspirated during procedure and sent for culture. 2. Status post CT-guided aspiration of perihepatic fluid, likely seroma on 04/2016. 3. History of laparoscopic cholecystectomy and biliary leak, status post stent placement in 07/2016. 4. Obesity. 5. Systemic inflammatory response syndrome secondary to above. PLAN: The patient remains stable, covered with appropriate antibiotics, pending repeat fluid cultures. Follow surgical recommendations. Will require terminal worker abx 2 to recurrent intraabdominal abscess, s/p PICC NED [facility] staff Problems: Consultation Date/Type/Reason Admit Date/Time August 27, 2016 at 16:10 Type of Consultation: ID Exam/Review of Systems Vital Signs Vitals Vital Signs Date Time Temp Pulse Resp B/P Pulse Ox O2 Delivery O2 Flow Rate FiO2 09/06/16 08:00 98.7 60 18 114/68 93 09/06/16 00:56 21 09/04/16 17:40 Simple Mask 2 Intake and Output 09/05/16 09/05/16 09/06/16 15:00 23:00 07:00 Intake Total 200 ml 1770 ml 1250 ml Output Total 30 ml Balance 200 ml 1740 ml 1250 ml Results Result Diagram: 09/05/16 1410 09/05/16 1410 Results 24 hrs Laboratory Tests Test 09/05/16 21:00 Vancomycin Level Trough 16.9 Medications Medications Current Medications Acetaminophen (Tylenol Tab) 650 mg Q6H PRN PO PAIN AND OR ELEVATED TEMP Last administered on 08/29/16 09:01; Admin Dose 650 MG; Start 08/27/16 at 20:00 Gabapentin (Neurontin) 300 mg Q6H PO Last administered on 09/05/16 08:32; Admin Dose 300 MG; Start 08/27/16 at 20:30 Losartan Potassium (Cozaar) 25 mg DAILY@21 PO Last administered on 09/06/16 02: 39; Admin Dose 25 MG; Start 08/27/16 at 21:00 Ondansetron HCl (Zofran Tab) 4 mg Q8H PRN PO NAUSEA AND/OR VOMITING; Start at 20:30 Pantoprazole (Protonix Tab) 40 mg DAILY PO Last administered on 09/06/16 09:07 ; Admin Dose 40 MG; Start 08/28/16 at 09:00 Sertraline HCl (Zoloft) 200 mg DAILY PO Last administered on 09/06/16 09:10; Admin Dose 200 MG; Start 08/28/16 at 09:00 Ondansetron HCl (Zofran Inj) 4 mg Q6H PRN IV NAUSEA AND/OR VOMITING Last administered on 09/05/16 12:48; Admin Dose 4 MG; Start 08/27/16 at 23:30 Acetaminophen/ Hydrocodone Bitart ([place] (5/325)) 1 tab Q6H PRN PO MODERATE PAIN LEVEL 4-6 Last administered on 08/28/16 19:59; Admin Dose 1 TAB; Start at 23:30 Docusate Sodium (Colace) 100 mg Q12H PRN PO CONSTIPATION; Start 08/27/16 at 23: 30 Magnesium Hydroxide (Milk Of Mag) 30 ml DAILY PRN PO CONSTIPATION; Start at 23:30 Bisacodyl (Dulcolax) 5 mg DAILY PRN PO CONSTIPATION; Start 08/27/16 at 23:30 Alprazolam (Xanax) 2 mg BID PRN PO ANXIETY Last administered on 09/06/16 13:34 ; Admin Dose 2 MG; Start 08/28/16 at 00:08 Hydromorphone HCl 1 mg 1 mg Q4H PRN IV PAIN Last administered on 09/06/16 14:48 ; Admin Dose 1 MG; Start 08/28/16 at 06:00 Ciprofloxacin/ Dextrose (Cipro Ivpb) 200 ml @ 200 mls/hr Q12 IVPB Last administered on 09/06/16 09:08; Admin Dose 200 MLS/HR; Start 09/01/16 at 21:00 IV Flush (NS 10 ml) 10 ml PRN PRN IV IV PROTOCOL; Start 09/03/16 at 14:30 Zolpidem Tartrate 5 mg 5 mg HS PRN PO INSOMNIA Last administered on 09/06/16 02 :37; Admin Dose 5 MG; Start 09/03/16 at 22:30 Metronidazole 100 ml @ 100 mls/hr Q8 IVPB Last administered on 09/06/16 13:34 ; Admin Dose 100 MLS/HR; Start 09/04/16 at 22:00 Vancomycin HCl (Vancocin) 250 ml @ 125 mls/hr Q8H IVPB Last administered on 13:34; Admin Dose 125 MLS/HR; Start 09/06/16 at 13:00 ABNER BALL NP Sep 06, 2016 15:12
--- NOTE | 2016-09-06 15:33 | PN ---
DATE: 09/06/2016 SUBJECTIVE: Has some pain in the right upper quadrant, otherwise feels better. OBJECTIVE: GENERAL: Awake, alert, oriented x3. VITAL SIGNS: Temperature 98.7, heart rate 60, respirations 18, blood pressure 104/68, saturation 93 % on room air. LABORATORY: WBC down to 9,500, normal, with 61% neutrophils, normal. Hemoglobin 9.9, hematocrit 31 .4. Chemistry: BUN, creatinine, sodium and potassium are within normal limits. The pigtail drain has drained 30 mL in the past 24 hours. IV irrigation and flushing of the catheter with 20 mL of no rmal saline and aspirated back 20 mL. The color is getting more clear and does not look purulent an ymore. ASSESSMENT AND PLAN: Status post percutaneous drainage of the collection in the right lateral aspec t of the right liver lobe, which was purulent, and culture has grown E. coli, enterococcus and staph . The patient was on antibiotic, Cipro, vancomycin and Flagyl. To be managed by infectious disease in regards to antibiotic type and duration. Will continue to flush the pigtail drain and continue t o drain the abscess cavity. Dictated By: BRADLY UGALDE MD PS/NTS Conf#: [id number] DID#: [id number]
--- NOTE | 2016-09-06 19:58 | CONS ---
Date/Time of Note Date/Time of Note DATE: 09/06/16 TIME: 19:55 Assessment/Plan Assessment/Plan Additional Assessment/Plan ASSESSMENT: 1. Systemic inflammatory response syndrome with fevers and leukocytosis secondary to #2. 2. Recurrent intraabdominal abscess status post CT-guided drainage, with fluid cultures growing gram-negative rods. 3. History of cholecystectomy. 4. History of biliary leak, status post stent placement on 07/19/2016. 5. Obesity PLAN: 1. continue IR drainage of the intraabdominal abscess. The pigtail catheter was changed from 10 [place] to 14 [place] and 30 cc of purulent material removed. There was also seroma clear fluid removed which was a second collection 2. Abx per ID senior science consultant. 3. Follow final cultures. 4. repeat CT doneand seroma drained 5. Patient is also due for the removal of the stent Consultation Date/Type/Reason Admit Date/Time August 27, 2016 at 16:10 Type of Consultation: ID [id number] HR Interval Summary Constitutional: improved Exam/Review of Systems Vital Signs Vitals Vital Signs Date Time Temp Pulse Resp B/P Pulse Ox O2 Delivery O2 Flow Rate FiO2 09/06/16 08:00 98.7 60 18 114/68 93 09/06/16 00:56 21 09/04/16 17:40 Simple Mask 2 Intake and Output 09/05/16 09/05/16 09/06/16 15:00 23:00 07:00 Intake Total 200 ml 1770 ml 1250 ml Output Total 30 ml Balance 200 ml 1740 ml 1250 ml Exam Constitutional: alert, oriented, well developed Psych: nl mood/affect, no complaints Head: atraumatic, normocephalic Eyes: EOMI, PERRL, nl conjunctiva, nl lids, nl sclera ENMT: nl external ears & nose, nl lips & teeth, nl nasal mucosa & septum Neck: non-tender, supple Respiratory: clear to auscultation, normal air movement Cardiovascular: nl pulses, regular rate and rhythm Gastrointestinal: nl liver, spleen, non-tender, soft Musculoskeletal: nl extremities to inspection, nl gait and stance Extremities: normal pulses Neurological: CELERY PACKER II-XII intact, nl mental status, nl speech, nl strength Skin: nl turgor, No rash or lesions Lymph: nl lymph nodes Results Result Diagram: 09/05/16 1410 09/05/16 1410 Results 24 hrs Laboratory Tests Test 09/05/16 21:00 Vancomycin Level Trough 16.9 Medications Medications Current Medications Acetaminophen (Tylenol Tab) 650 mg Q6H PRN PO PAIN AND OR ELEVATED TEMP Last administered on 08/29/16 09:01; Admin Dose 650 MG; Start 08/27/16 at 20:00 Gabapentin (Neurontin) 300 mg Q6H PO Last administered on 09/05/16 08:32; Admin Dose 300 MG; Start 08/27/16 at 20:30 Losartan Potassium (Cozaar) 25 mg DAILY@21 PO Last administered on 09/06/16 02: 39; Admin Dose 25 MG; Start 08/27/16 at 21:00 Ondansetron HCl (Zofran Tab) 4 mg Q8H PRN PO NAUSEA AND/OR VOMITING; Start at 20:30 Pantoprazole (Protonix Tab) 40 mg DAILY PO Last administered on 09/06/16 09:07 ; Admin Dose 40 MG; Start 08/28/16 at 09:00 Sertraline HCl (Zoloft) 200 mg DAILY PO Last administered on 09/06/16 09:10; Admin Dose 200 MG; Start 08/28/16 at 09:00 Ondansetron HCl (Zofran Inj) 4 mg Q6H PRN IV NAUSEA AND/OR VOMITING Last administered on 09/05/16 12:48; Admin Dose 4 MG; Start 08/27/16 at 23:30 Acetaminophen/ Hydrocodone Bitart ([place] (5/325)) 1 tab Q6H PRN PO MODERATE PAIN LEVEL 4-6 Last administered on 08/28/16 19:59; Admin Dose 1 TAB; Start at 23:30 Docusate Sodium (Colace) 100 mg Q12H PRN PO CONSTIPATION; Start 08/27/16 at 23: 30 Magnesium Hydroxide (Milk Of Mag) 30 ml DAILY PRN PO CONSTIPATION; Start at 23:30 Bisacodyl (Dulcolax) 5 mg DAILY PRN PO CONSTIPATION; Start 08/27/16 at 23:30 Alprazolam (Xanax) 2 mg BID PRN PO ANXIETY Last administered on 09/06/16 13:34 ; Admin Dose 2 MG; Start 08/28/16 at 00:08 Hydromorphone HCl 1 mg 1 mg Q4H PRN IV PAIN Last administered on 09/06/16 18:54 ; Admin Dose 1 MG; Start 08/28/16 at 06:00 Ciprofloxacin/ Dextrose (Cipro Ivpb) 200 ml @ 200 mls/hr Q12 IVPB Last administered on 09/06/16 09:08; Admin Dose 200 MLS/HR; Start 09/01/16 at 21:00 IV Flush (NS 10 ml) 10 ml PRN PRN IV IV PROTOCOL; Start 09/03/16 at 14:30 Zolpidem Tartrate 5 mg 5 mg HS PRN PO INSOMNIA Last administered on 09/06/16 02 :37; Admin Dose 5 MG; Start 09/03/16 at 22:30 Metronidazole 100 ml @ 100 mls/hr Q8 IVPB Last administered on 09/06/16 13:34 ; Admin Dose 100 MLS/HR; Start 09/04/16 at 22:00 Vancomycin HCl (Vancocin) 250 ml @ 125 mls/hr Q8H IVPB Last administered on 13:34; Admin Dose 125 MLS/HR; Start 09/06/16 at 13:00 JESUS AGUILAR MD Sep 06, 2016 19:58
[2016-09-06 20:12] VITALS: BP 110/66; RESP 18
[2016-09-06] MEDS: ONDANSETRON 4 MG INJ IV PRN (21:12)
[2016-09-07] MEDS: GABAPENTIN 300 MG CAP PO SCH ×4 (02:45→20:00)
[2016-09-07] MEDS: HYDROmorphONE 1 MG/ML SYG IV PRN ×6 (02:45→22:20)
[2016-09-07] MEDS: VANCOMYCIN 1 GM in NS 250 ML IVPB SCH ×3 (04:05→22:23)
[2016-09-07] MEDS: metroNIDAZOLE 500 MG/NS (PMX) 100 ML IVPB SCH ×3 (06:12→21:01)
[2016-09-07 07:40] VITALS: BP 110/58; RESP 21
[2016-09-07] MEDS: CIPROFLOXACIN 400MG/D5W 200 ML IVPB SCH ×2 (10:12→20:00)
[2016-09-07] MEDS: PANTOPRAZOLE (EC) 40 MG TAB PO SCH (10:12)
[2016-09-07] MEDS: SERTRALINE 100 MG TAB PO SCH (10:13)
[2016-09-07] MEDS: ALPRAZOLAM 0.5 MG TAB PO PRN ×2 (12:57→22:51)
--- NOTE | 2016-09-07 14:14 | PN ---
Date/Time of Note Date/Time of Note DATE: 09/07/16 TIME: 14:13 Assessment/Plan VTE Prophylaxis VTE Prophylaxis Intervention: other Lines/Catheters IV Catheter Type (from Nrs): PICC Line Central line still needed: Yes Urinary Cath still in place: No Reason Cath still needed: other (indicate) Assessment/Plan Chief Complaint/Hosp Course IMPRESSION: 1. The patient has right upper quadrant abscess, possibly biloma. 2. The patient has leukocytosis. 3. History of cholecystectomy. 4. Anemia. 5. Hypokalemia. 6. Obesity. 7. Dyslipidemia. 8. Anxiety. 9. Insomnia. planantibiotic PER GI AND ID and surgery drain care d/w dr parra he will decide about surgical intervention Problems: Subjective 24 Hr Interval Summary Cardiovascular: no complaints Gastrointestinal: no complaints Exam/Review of Systems Vital Signs Vitals Vital Signs Date Time Temp Pulse Resp B/P Pulse Ox O2 Delivery O2 Flow Rate FiO2 09/07/16 07:40 98.3 62 21 110/58 93 09/06/16 00:56 21 09/04/16 17:40 Simple Mask 2 Intake and Output 09/06/16 09/06/16 09/07/16 15:00 23:00 07:00 Intake Total 1500 ml 850 ml Balance 1500 ml 850 ml Exam Respiratory: clear to auscultation Cardiovascular: regular rate and rhythm Genitourinary - Female: nl adnexae Results Result Diagram: 09/05/16 1410 09/05/16 1410 Medications Medications Current Medications Acetaminophen (Tylenol Tab) 650 mg Q6H PRN PO PAIN AND OR ELEVATED TEMP Last administered on 08/29/16 09:01; Admin Dose 650 MG; Start 08/27/16 at 20:00 Gabapentin (Neurontin) 300 mg Q6H PO Last administered on 09/07/16 10:12; Admin Dose 300 MG; Start 08/27/16 at 20:30 Losartan Potassium (Cozaar) 25 mg DAILY@21 PO Last administered on 09/06/16 02: 39; Admin Dose 25 MG; Start 08/27/16 at 21:00 Ondansetron HCl (Zofran Tab) 4 mg Q8H PRN PO NAUSEA AND/OR VOMITING; Start at 20:30 Pantoprazole (Protonix Tab) 40 mg DAILY PO Last administered on 09/07/16 10:12 ; Admin Dose 40 MG; Start 08/28/16 at 09:00 Sertraline HCl (Zoloft) 200 mg DAILY PO Last administered on 09/07/16 10:13; Admin Dose 200 MG; Start 08/28/16 at 09:00 Ondansetron HCl (Zofran Inj) 4 mg Q6H PRN IV NAUSEA AND/OR VOMITING Last administered on 09/06/16 21:12; Admin Dose 4 MG; Start 08/27/16 at 23:30 Acetaminophen/ Hydrocodone Bitart ([place] (5/325)) 1 tab Q6H PRN PO MODERATE PAIN LEVEL 4-6 Last administered on 08/28/16 19:59; Admin Dose 1 TAB; Start at 23:30 Docusate Sodium (Colace) 100 mg Q12H PRN PO CONSTIPATION; Start 08/27/16 at 23: 30 Magnesium Hydroxide (Milk Of Mag) 30 ml DAILY PRN PO CONSTIPATION; Start at 23:30 Bisacodyl (Dulcolax) 5 mg DAILY PRN PO CONSTIPATION; Start 08/27/16 at 23:30 Alprazolam (Xanax) 2 mg BID PRN PO ANXIETY Last administered on 09/07/16 12:57 ; Admin Dose 2 MG; Start 08/28/16 at 00:08 Hydromorphone HCl 1 mg 1 mg Q4H PRN IV PAIN Last administered on 09/07/16 10:12 ; Admin Dose 1 MG; Start 08/28/16 at 06:00 Ciprofloxacin/ Dextrose (Cipro Ivpb) 200 ml @ 200 mls/hr Q12 IVPB Last administered on 09/07/16 10:12; Admin Dose 200 MLS/HR; Start 09/01/16 at 21:00 IV Flush (NS 10 ml) 10 ml PRN PRN IV IV PROTOCOL; Start 09/03/16 at 14:30 Zolpidem Tartrate 5 mg 5 mg HS PRN PO INSOMNIA Last administered on 09/06/16 23 :41; Admin Dose 5 MG; Start 09/03/16 at 22:30 Metronidazole 100 ml @ 100 mls/hr Q8 IVPB Last administered on 09/07/16 06:12 ; Admin Dose 100 MLS/HR; Start 09/04/16 at 22:00 Vancomycin HCl (Vancocin) 250 ml @ 125 mls/hr Q8H IVPB Last administered on t 12:44; Admin Dose 125 MLS/HR; Start 09/06/16 at 13:00 Miscellaneous Information (*Rx Drug Level Order Reminder*) VANCOMYCIN TROUGH LEVEL... ONCE ONCE XX ; Start 09/08/16 at 12:00; Stop 09/08/16 at 12:01 JEB VAZQUEZ MD Sep 07, 2016 14:14
--- NOTE | 2016-09-07 15:11 | CONS ---
Date/Time of Note Date/Time of Note DATE: 09/07/16 TIME: 15:11 Assessment/Plan Assessment/Plan Chief Complaint/Hosp Course SUBJECTIVE: No acute events. No fevers. Alert, feels good, non/v/d MICROBIOLOGY: Aspirated abdominal fluid culture from 09/05 pending. INDWELLINGS: Right-sided intra-abdominal drainage catheter. ANTIMICROBIALS: 1. Vancomycin. 2. Ciprofloxacin. 3. Flagyl. PHYSICAL EXAMINATION: GENERAL: This is a morbidly obese, well-developed, middle-aged woman who is alert, in no distress. HEENT: Head atraumatic, normocephalic. Sclerae anicteric. Buccal mucosa pink. NECK: Supple. CHEST: Rise symmetrical. Breath sounds clear. HEART: S1, S2. ABDOMEN: Soft. Bowel tones present. ASSESSMENT: 1. Recurrent intraabdominal abscess status post CT-guided drainage aspiration with a catheter exchanged to a bigger size on 09/05/16 and 30 mL of purulent fluid being aspirated during procedure and sent for culture. 2. Status post CT-guided aspiration of perihepatic fluid, likely seroma on 04/2016. 3. History of laparoscopic cholecystectomy and biliary leak, status post stent placement in 07/2016. 4. Obesity. 5. Systemic inflammatory response syndrome secondary to above. PLAN: The patient remains stable, covered with appropriate antibiotics, pending repeat fluid cultures. Follow surgical recommendations. Will require central communications specialist abx 2 to recurrent intraabdominal abscess, s/p PICC [facility] staff Problems: Consultation Date/Type/Reason Admit Date/Time August 27, 2016 at 16:10 Type of Consultation: ID Exam/Review of Systems Vital Signs Vitals Vital Signs Date Time Temp Pulse Resp B/P Pulse Ox O2 Delivery O2 Flow Rate FiO2 09/07/16 07:40 98.3 62 21 110/58 93 09/06/16 00:56 21 09/04/16 17:40 Simple Mask 2 Intake and Output 09/06/16 09/06/16 09/07/16 15:00 23:00 07:00 Intake Total 1500 ml 850 ml Balance 1500 ml 850 ml Results Result Diagram: 09/05/16 1410 09/05/16 1410 Medications Medications Current Medications Acetaminophen (Tylenol Tab) 650 mg Q6H PRN PO PAIN AND OR ELEVATED TEMP Last administered on 08/29/16 09:01; Admin Dose 650 MG; Start 08/27/16 at 20:00 Gabapentin (Neurontin) 300 mg Q6H PO Last administered on 09/07/16 14:21; Admin Dose 300 MG; Start 08/27/16 at 20:30 Losartan Potassium (Cozaar) 25 mg DAILY@21 PO Last administered on 09/06/16 02: 39; Admin Dose 25 MG; Start 08/27/16 at 21:00 Ondansetron HCl (Zofran Tab) 4 mg Q8H PRN PO NAUSEA AND/OR VOMITING; Start at 20:30 Pantoprazole (Protonix Tab) 40 mg DAILY PO Last administered on 09/07/16 10:12 ; Admin Dose 40 MG; Start 08/28/16 at 09:00 Sertraline HCl (Zoloft) 200 mg DAILY PO Last administered on 09/07/16 10:13; Admin Dose 200 MG; Start 08/28/16 at 09:00 Ondansetron HCl (Zofran Inj) 4 mg Q6H PRN IV NAUSEA AND/OR VOMITING Last administered on 09/06/16 21:12; Admin Dose 4 MG; Start 08/27/16 at 23:30 Acetaminophen/ Hydrocodone Bitart ([place] (5/325)) 1 tab Q6H PRN PO MODERATE PAIN LEVEL 4-6 Last administered on 08/28/16 19:59; Admin Dose 1 TAB; Start at 23:30 Docusate Sodium (Colace) 100 mg Q12H PRN PO CONSTIPATION; Start 08/27/16 at 23: 30 Magnesium Hydroxide (Milk Of Mag) 30 ml DAILY PRN PO CONSTIPATION; Start at 23:30 Bisacodyl (Dulcolax) 5 mg DAILY PRN PO CONSTIPATION; Start 08/27/16 at 23:30 Alprazolam (Xanax) 2 mg BID PRN PO ANXIETY Last administered on 09/07/16 12:57 ; Admin Dose 2 MG; Start 08/28/16 at 00:08 Hydromorphone HCl 1 mg 1 mg Q4H PRN IV PAIN Last administered on 09/07/16 14:20 ; Admin Dose 1 MG; Start 08/28/16 at 06:00 Ciprofloxacin/ Dextrose (Cipro Ivpb) 200 ml @ 200 mls/hr Q12 IVPB Last administered on 09/07/16 10:12; Admin Dose 200 MLS/HR; Start 09/01/16 at 21:00 IV Flush (NS 10 ml) 10 ml PRN PRN IV IV PROTOCOL; Start 09/03/16 at 14:30 Zolpidem Tartrate 5 mg 5 mg HS PRN PO INSOMNIA Last administered on 09/06/16 23 :41; Admin Dose 5 MG; Start 09/03/16 at 22:30 Metronidazole 100 ml @ 100 mls/hr Q8 IVPB Last administered on 09/07/16 14:21 ; Admin Dose 100 MLS/HR; Start 09/04/16 at 22:00 Vancomycin HCl (Vancocin) 250 ml @ 125 mls/hr Q8H IVPB Last administered on 12:44; Admin Dose 125 MLS/HR; Start 09/06/16 at 13:00 Miscellaneous Information (*Rx Drug Level Order Reminder*) VANCOMYCIN TROUGH LEVEL... ONCE ONCE XX ; Start 09/08/16 at 12:00; Stop 09/08/16 at 12:01 ABNER BALL NP Sep 07, 2016 15:11
[2016-09-07] MEDS: ONDANSETRON 4 MG INJ IV PRN ×2 (18:25→21:01)
--- NOTE | 2016-09-07 18:32 | PN ---
DATE: 09/07/2016 SUBJECTIVE: No new complaints, feels slightly better, probably has had some chills last night, but no fever, no nausea, no vomiting. OBJECTIVE GENERAL: Awake, alert, oriented x3. VITAL SIGNS: Temperature 98.3, heart rate 62 regular, respiration 21, blood pressure 110/58, satura tion 93% on room air. LABORATORY DATA: No labs today. The patient had drainage apparently last maintenance technician 2nd shift around 7:00 p.m ., today 7 a.m. has been only a few mL, maybe a couple of mL and since morning also there has been a couple of mL. I personally flushed the tubing with 20 mL of saline, each time with 10 mL and aspir ated back. The drainage appears slightly serosanguineous but no pus. ASSESSMENT AND PLAN: Patient presented with retained loculation in the abdominal cavity and around t he right lobe of the liver a percutaneous pigtail drainage was placed, CT-guided pus was drained. C ulture was positive for E. coli and Enterococcus and the staff. Patient received antibiotics accordi ng to sensitivity and leukocytosis was present and now is normalized after 2 days ago. We are going to repeat CBC tomorrow and get a sed rate, as well. Further decision will be made next week. Dictated By: BRADLY CORTES/ARGELIA Conf#: [id number] DID#: [id number]
[2016-09-07 20:07] VITALS: BP 108/55; RESP 20
[2016-09-07] MEDS: LOSARTAN 25 MG TAB PO SCH (21:02)
--- NOTE | 2016-09-07 21:35 | CONS ---
Date/Time of Note Date/Time of Note DATE: 09/07/16 TIME: 21:34 Assessment/Plan Assessment/Plan Additional Assessment/Plan ASSESSMENT: 1. Systemic inflammatory response syndrome with fevers and leukocytosis secondary to #2. 2. Recurrent intraabdominal abscess status post CT-guided drainage, with fluid cultures growing gram-negative rods. 3. History of cholecystectomy. 4. History of biliary leak, status post stent placement on 07/19/2016. 5. Obesity PLAN: 1. continue IR drainage of the intraabdominal abscess. The pigtail catheter was changed from 10 [place] to 14 [place] and 30 cc of purulent material removed. There was also seroma clear fluid removed which was a second collection 2. Abx per ID edi consultant. 3. Follow final cultures. 4. repeat CT done and seroma drained 5. Patient is also due for the removal of the stent Consultation Date/Type/Reason Admit Date/Time August 27, 2016 at 16:10 Type of Consultation: ID [id number] HR Interval Summary Constitutional: improved Exam/Review of Systems Vital Signs Vitals Vital Signs Date Time Temp Pulse Resp B/P Pulse Ox O2 Delivery O2 Flow Rate FiO2 09/07/16 20:07 98.6 67 20 108/55 93 09/06/16 00:56 21 09/04/16 17:40 Simple Mask 2 Intake and Output 09/06/16 09/06/16 09/07/16 15:00 23:00 07:00 Intake Total 1500 ml 850 ml Balance 1500 ml 850 ml Exam Constitutional: alert, oriented, well developed Psych: nl mood/affect, no complaints Head: atraumatic, normocephalic Eyes: EOMI, PERRL, nl conjunctiva, nl lids, nl sclera ENMT: nl external ears & nose, nl lips & teeth, nl nasal mucosa & septum Neck: non-tender, supple Respiratory: clear to auscultation, normal air movement Cardiovascular: nl pulses, regular rate and rhythm Gastrointestinal: nl liver, spleen, non-tender, soft Musculoskeletal: nl extremities to inspection, nl gait and stance Extremities: normal pulses Neurological: ONLINE MARKETING SPECIALIST II-XII intact, nl mental status, nl speech, nl strength Skin: nl turgor, No rash or lesions Lymph: nl lymph nodes Results Result Diagram: 09/05/16 1410 09/05/16 1410 Medications Medications Current Medications Acetaminophen (Tylenol Tab) 650 mg Q6H PRN PO PAIN AND OR ELEVATED TEMP Last administered on 08/29/16 09:01; Admin Dose 650 MG; Start 08/27/16 at 20:00 Gabapentin (Neurontin) 300 mg Q6H PO Last administered on 09/07/16 14:21; Admin Dose 300 MG; Start 08/27/16 at 20:30 Losartan Potassium (Cozaar) 25 mg DAILY@21 PO Last administered on 09/07/16 21: 02; Admin Dose 25 MG; Start 08/27/16 at 21:00 Ondansetron HCl (Zofran Tab) 4 mg Q8H PRN PO NAUSEA AND/OR VOMITING; Start at 20:30 Pantoprazole (Protonix Tab) 40 mg DAILY PO Last administered on 09/07/16 10:12 ; Admin Dose 40 MG; Start 08/28/16 at 09:00 Sertraline HCl (Zoloft) 200 mg DAILY PO Last administered on 09/07/16 10:13; Admin Dose 200 MG; Start 08/28/16 at 09:00 Ondansetron HCl (Zofran Inj) 4 mg Q6H PRN IV NAUSEA AND/OR VOMITING Last administered on 09/07/16 21:01; Admin Dose 4 MG; Start 08/27/16 at 23:30 Acetaminophen/ Hydrocodone Bitart ([place] (5/325)) 1 tab Q6H PRN PO MODERATE PAIN LEVEL 4-6 Last administered on 08/28/16 19:59; Admin Dose 1 TAB; Start at 23:30 Docusate Sodium (Colace) 100 mg Q12H PRN PO CONSTIPATION; Start 08/27/16 at 23: 30 Magnesium Hydroxide (Milk Of Mag) 30 ml DAILY PRN PO CONSTIPATION; Start at 23:30 Bisacodyl (Dulcolax) 5 mg DAILY PRN PO CONSTIPATION; Start 08/27/16 at 23:30 Alprazolam (Xanax) 2 mg BID PRN PO ANXIETY Last administered on 09/07/16 12:57 ; Admin Dose 2 MG; Start 08/28/16 at 00:08 Hydromorphone HCl 1 mg 1 mg Q4H PRN IV PAIN Last administered on 09/07/16 18:18 ; Admin Dose 1 MG; Start 08/28/16 at 06:00 Ciprofloxacin/ Dextrose (Cipro Ivpb) 200 ml @ 200 mls/hr Q12 IVPB Last administered on 09/07/16 20:00; Admin Dose 200 MLS/HR; Start 09/01/16 at 21:00 IV Flush (NS 10 ml) 10 ml PRN PRN IV IV PROTOCOL; Start 09/03/16 at 14:30 Zolpidem Tartrate 5 mg 5 mg HS PRN PO INSOMNIA Last administered on 09/06/16 23 :41; Admin Dose 5 MG; Start 09/03/16 at 22:30 Metronidazole 100 ml @ 100 mls/hr Q8 IVPB Last administered on 09/07/16 21:01 ; Admin Dose 100 MLS/HR; Start 09/04/16 at 22:00 Vancomycin HCl (Vancocin) 250 ml @ 125 mls/hr Q8H IVPB Last administered on 12:44; Admin Dose 125 MLS/HR; Start 09/06/16 at 13:00 Miscellaneous Information (*Rx Drug Level Order Reminder*) VANCOMYCIN TROUGH LEVEL... ONCE ONCE XX ; Start 09/08/16 at 12:00; Stop 09/08/16 at 12:01 JESUS AGUILAR MD Sep 07, 2016 21:35
[2016-09-08] MEDS: HYDROmorphONE 1 MG/ML SYG IV PRN ×6 (02:27→22:37)
[2016-09-08] MEDS: GABAPENTIN 300 MG CAP PO SCH ×4 (02:30→20:09)
[2016-09-08] MEDS: VANCOMYCIN 1 GM in NS 250 ML IVPB SCH ×3 (04:00→22:15)
[2016-09-08] MEDS ORDERED: ALTEPLASE (CATHFLO) 2 MG INJ CATHETER ONE (04:30)
[2016-09-08 06:33] LABS: ADD SCAN DIFF NO
[2016-09-08 06:37] LABS: BASOPHIL # 0.1 10^3/ul (0.0-0.1); BASOPHILS % 0.5 % (0.0-2.0); EOSINOPHILS # 0.3 10^3/ul (0.0-0.5); EOSINOPHILS % 2.8 % (0.0-7.0); HEMATOCRIT 33.7 % (37.0-47.0); HEMOGLOBIN 10.7 g/dl (12.0-16.0); LYMPHOCYTES # 3.3 10^3/ul (0.8-2.9); LYMPHOCYTES % 29.5 % (15.0-51.0); MEAN CORPUSCULAR HEMOGLOBIN 24.8 pg (29.0-33.0); MEAN CORPUSCULAR HGB CONC 31.8 g/dl (32.0-37.0); MEAN CORPUSCULAR VOLUME 78.2 fl (82.0-101.0); MEAN PLATELET VOLUME 8.7 fl (7.4-10.4); MONOCYTE # 0.8 10^3/ul (0.3-0.9); MONOCYTES % 7.4 % (0.0-11.0); NEUTROPHIL # 6.7 10^3/ul (1.6-7.5); NEUTROPHILS % 59.2 % (39.0-77.0); PLATELET COUNT 478 10^3/UL (140-415); RED BLOOD COUNT 4.31 10^6/ul (4.20-5.40); RED CELL DISTRIBUTION WIDTH 14.6 % (11.5-14.5); WHITE BLOOD COUNT 11.3 10^3/ul (4.8-10.8)
[2016-09-08] MEDS: ONDANSETRON 4 MG INJ IV PRN ×2 (06:37→13:15)
[2016-09-08] MEDS: metroNIDAZOLE 500 MG/NS (PMX) 100 ML IVPB SCH ×3 (06:45→21:10)
[2016-09-08 08:16] VITALS: BP 95/47; RESP 18
[2016-09-08] MEDS: PANTOPRAZOLE (EC) 40 MG TAB PO SCH (09:05)
[2016-09-08] MEDS: CIPROFLOXACIN 400MG/D5W 200 ML IVPB SCH ×2 (09:05→20:06)
[2016-09-08] MEDS: ALPRAZOLAM 0.5 MG TAB PO PRN ×2 (09:10→20:11)
[2016-09-08] MEDS: SERTRALINE 100 MG TAB PO SCH (10:02)
--- NOTE | 2016-09-08 14:23 | CONS ---
Date/Time of Note Date/Time of Note DATE: 09/08/16 TIME: 14:21 Assessment/Plan Assessment/Plan Chief Complaint/Hosp Course SUBJECTIVE: No acute events. No fevers. MICROBIOLOGY: Aspirated abdominal fluid culture from 09/05 negative. INDWELLINGS: Right-sided intra-abdominal drainage catheter. ANTIMICROBIALS: 1. Vancomycin. 2. Ciprofloxacin. 3. Flagyl. PHYSICAL EXAMINATION: GENERAL: This is a morbidly obese, well-developed, middle-aged woman who is alert, in no distress. HEENT: Head atraumatic, normocephalic. Sclerae anicteric. Buccal mucosa pink. NECK: Supple. CHEST: Rise symmetrical. Breath sounds clear. HEART: S1, S2. ABDOMEN: Soft. Bowel tones present. ASSESSMENT: 1. Recurrent intraabdominal abscess status post CT-guided drainage aspiration with a catheter exchanged to a bigger size on 09/05/16 and 30 mL of purulent fluid being aspirated during procedure and sent for culture. 2. Status post CT-guided aspiration of perihepatic fluid, likely seroma on 04/2016. 3. History of laparoscopic cholecystectomy and biliary leak, status post stent placement in 07/2016. 4. Obesity. 5. Systemic inflammatory response syndrome secondary to above. PLAN: The patient remains stable, continue present care, abx, f/u GI/surgical rec-s. DW staff Problems: Consultation Date/Type/Reason Admit Date/Time August 27, 2016 at 16:10 Type of Consultation: ID Exam/Review of Systems Vital Signs Vitals Vital Signs Date Time Temp Pulse Resp B/P Pulse Ox O2 Delivery O2 Flow Rate FiO2 09/08/16 08:16 98.7 59 18 95/47 94 09/06/16 00:56 21 09/04/16 17:40 Simple Mask 2 Intake and Output 09/07/16 09/07/16 09/08/16 15:00 23:00 07:00 Intake Total 550 ml 1700 ml 1220 ml Output Total 5 ml 5 ml Balance 550 ml 1695 ml 1215 ml Results Result Diagram: 09/08/16 0513 09/05/16 1410 Results 24 hrs Laboratory Tests Test 09/08/16 05:13 09/08/16 05:43 09/08/16 12:20 White Blood Count 11.3 H Red Blood Count 4.31 Hemoglobin 10.7 L Hematocrit 33.7 L Mean Corpuscular Volume 78.2 L Mean Corpuscular Hemoglobin 24.8 L Mean Corpuscular Hemoglobin Concent 31.8 L Red Cell Distribution Width 14.6 H Platelet Count 478 H Mean Platelet Volume 8.7 Neutrophils % 59.2 Lymphocytes % 29.5 Monocytes % 7.4 Eosinophils % 2.8 Basophils % 0.5 Nucleated Red Blood Cells % 0.0 Neutrophils # 6.7 Lymphocytes # 3.3 H Monocytes # 0.8 Eosinophils # 0.3 Basophils # 0.1 Nucleated Red Blood Cells # 0.0 Erythrocyte Sedimentation Rate 45 H Vancomycin Level Trough 13.2 Medications Medications Current Medications Acetaminophen (Tylenol Tab) 650 mg Q6H PRN PO PAIN AND OR ELEVATED TEMP Last administered on 08/29/16 09:01; Admin Dose 650 MG; Start 08/27/16 at 20:00 Gabapentin (Neurontin) 300 mg Q6H PO Last administered on 09/08/16 09:05; Admin Dose 300 MG; Start 08/27/16 at 20:30 Losartan Potassium (Cozaar) 25 mg DAILY@21 PO Last administered on 09/07/16 21: 02; Admin Dose 25 MG; Start 08/27/16 at 21:00 Ondansetron HCl (Zofran Tab) 4 mg Q8H PRN PO NAUSEA AND/OR VOMITING; Start at 20:30 Pantoprazole (Protonix Tab) 40 mg DAILY PO Last administered on 09/08/16 09:05 ; Admin Dose 40 MG; Start 08/28/16 at 09:00 Sertraline HCl (Zoloft) 200 mg DAILY PO Last administered on 09/08/16 10:02; Admin Dose 200 MG; Start 08/28/16 at 09:00 Ondansetron HCl (Zofran Inj) 4 mg Q6H PRN IV NAUSEA AND/OR VOMITING Last administered on 09/08/16 13:15; Admin Dose 4 MG; Start 08/27/16 at 23:30 Acetaminophen/ Hydrocodone Bitart ([place] (5/325)) 1 tab Q6H PRN PO MODERATE PAIN LEVEL 4-6 Last administered on 08/28/16 19:59; Admin Dose 1 TAB; Start at 23:30 Docusate Sodium (Colace) 100 mg Q12H PRN PO CONSTIPATION; Start 08/27/16 at 23: 30 Magnesium Hydroxide (Milk Of Mag) 30 ml DAILY PRN PO CONSTIPATION; Start at 23:30 Bisacodyl (Dulcolax) 5 mg DAILY PRN PO CONSTIPATION; Start 08/27/16 at 23:30 Alprazolam (Xanax) 2 mg BID PRN PO ANXIETY Last administered on 09/08/16 09:10 ; Admin Dose 2 MG; Start 08/28/16 at 00:08 Hydromorphone HCl 1 mg 1 mg Q4H PRN IV PAIN Last administered on 09/08/16 10:04 ; Admin Dose 1 MG; Start 08/28/16 at 06:00 Ciprofloxacin/ Dextrose (Cipro Ivpb) 200 ml @ 200 mls/hr Q12 IVPB Last administered on 09/08/16 09:05; Admin Dose 200 MLS/HR; Start 09/01/16 at 21:00 IV Flush (NS 10 ml) 10 ml PRN PRN IV IV PROTOCOL; Start 09/03/16 at 14:30 Zolpidem Tartrate 5 mg 5 mg HS PRN PO INSOMNIA Last administered on 09/06/16 23 :41; Admin Dose 5 MG; Start 09/03/16 at 22:30 Metronidazole 100 ml @ 100 mls/hr Q8 IVPB Last administered on 09/08/16 13:16 ; Admin Dose 100 MLS/HR; Start 09/04/16 at 22:00 Vancomycin HCl (Vancocin) 250 ml @ 125 mls/hr Q8H IVPB Last administered on 04:00; Admin Dose 125 MLS/HR; Start 09/06/16 at 13:00 ABNER BALL NP Sep 08, 2016 14:23
[2016-09-08] MEDS ORDERED: IOHEXOL 300MG/ML 30 ML BTL ONE ×2 (16:05)
[2016-09-08] MEDS ORDERED: SOD CHLORIDE 0.9% 0 ML ONE (16:10)
--- NOTE | 2016-09-08 18:23 | RADRPT ---
PROCEDURE: Fistulogram CLINICAL INDICATION: Recurrent perihepatic abscess TECHNIQUE: 10 cc of contrast was injected via the indwelling catheter in the right upper abdominal quadrant and multiple fluoroscopic images were obtained. The images were viewed on a PACS workstat ion. COMPARISON: CT guided abdominal abscess drainages from 09/04/[address] abdomen/pelvis from the [facility] date FINDINGS: Contrast injection of the drainage catheter in the right upper abdominal quadrant demonstrates a 2.5 x 1.5 cm cavity in the right upper abdominal quadrant. No evidence of contrast leakage is identifi ed. No evidence of bowel opacification is identified to suggest a bowel leak/perforation. IMPRESSION: Injection of the catheter in the right upper abdominal quadrant under fluoroscopy does not demonstra te a fistulous connection to bowel, as above. These findings were discussed with Dr. Georges at the time of the examination. RPTAT: EE Physician Colby Date Time Electronically viewed and signed by Physician Colby on 09/08/2016 18:22 /
--- NOTE | 2016-09-08 19:02 | PN ---
Date/Time of Note Date/Time of Note DATE: 09/08/16 TIME: 19:02 Assessment/Plan VTE Prophylaxis VTE Prophylaxis Intervention: other Lines/Catheters IV Catheter Type (from Nrs): PICC Line Central line still needed: Yes Urinary Cath still in place: No Reason Cath still needed: other (indicate) Assessment/Plan Chief Complaint/Hosp Course IMPRESSION: 1. The patient has right upper quadrant abscess, possibly biloma. 2. The patient has leukocytosis. 3. History of cholecystectomy. 4. Anemia. 5. Hypokalemia.better 6. Obesity. 7. Dyslipidemia. 8. Anxiety. 9. Insomnia. planantibiotic PER GI AND ID and surgery drain care d/w dr parra he will decide about surgical intervention Problems: Subjective 24 Hr Interval Summary Gastrointestinal: no complaints Genitourinary: no complaints Exam/Review of Systems Vital Signs Vitals Vital Signs Date Time Temp Pulse Resp B/P Pulse Ox O2 Delivery O2 Flow Rate FiO2 09/08/16 08:16 98.7 59 18 95/47 94 09/06/16 00:56 21 09/04/16 17:40 Simple Mask 2 Intake and Output 09/07/16 09/07/16 09/08/16 15:00 23:00 07:00 Intake Total 550 ml 1700 ml 1220 ml Output Total 5 ml 5 ml Balance 550 ml 1695 ml 1215 ml Exam Respiratory: clear to auscultation Cardiovascular: regular rate and rhythm Gastrointestinal: soft Results Result Diagram: 09/08/16 0513 09/05/16 1410 Results 24 hrs Laboratory Tests Test 09/08/16 05:13 09/08/16 05:43 09/08/16 12:20 White Blood Count 11.3 H Red Blood Count 4.31 Hemoglobin 10.7 L Hematocrit 33.7 L Mean Corpuscular Volume 78.2 L Mean Corpuscular Hemoglobin 24.8 L Mean Corpuscular Hemoglobin Concent 31.8 L Red Cell Distribution Width 14.6 H Platelet Count 478 H Mean Platelet Volume 8.7 Neutrophils % 59.2 Lymphocytes % 29.5 Monocytes % 7.4 Eosinophils % 2.8 Basophils % 0.5 Nucleated Red Blood Cells % 0.0 Neutrophils # 6.7 Lymphocytes # 3.3 H Monocytes # 0.8 Eosinophils # 0.3 Basophils # 0.1 Nucleated Red Blood Cells # 0.0 Erythrocyte Sedimentation Rate 45 H Vancomycin Level Trough 13.2 Medications Medications Current Medications Acetaminophen (Tylenol Tab) 650 mg Q6H PRN PO PAIN AND OR ELEVATED TEMP Last administered on 08/29/16 09:01; Admin Dose 650 MG; Start 08/27/16 at 20:00 Gabapentin (Neurontin) 300 mg Q6H PO Last administered on 09/08/16 09:05; Admin Dose 300 MG; Start 08/27/16 at 20:30 Losartan Potassium (Cozaar) 25 mg DAILY@21 PO Last administered on 09/07/16 21: 02; Admin Dose 25 MG; Start 08/27/16 at 21:00 Ondansetron HCl (Zofran Tab) 4 mg Q8H PRN PO NAUSEA AND/OR VOMITING; Start at 20:30 Pantoprazole (Protonix Tab) 40 mg DAILY PO Last administered on 09/08/16 09:05 ; Admin Dose 40 MG; Start 08/28/16 at 09:00 Sertraline HCl (Zoloft) 200 mg DAILY PO Last administered on 09/08/16 10:02; Admin Dose 200 MG; Start 08/28/16 at 09:00 Ondansetron HCl (Zofran Inj) 4 mg Q6H PRN IV NAUSEA AND/OR VOMITING Last administered on 09/08/16 13:15; Admin Dose 4 MG; Start 08/27/16 at 23:30 Acetaminophen/ Hydrocodone Bitart ([place] (5/325)) 1 tab Q6H PRN PO MODERATE PAIN LEVEL 4-6 Last administered on 08/28/16 19:59; Admin Dose 1 TAB; Start at 23:30 Docusate Sodium (Colace) 100 mg Q12H PRN PO CONSTIPATION; Start 08/27/16 at 23: 30 Magnesium Hydroxide (Milk Of Mag) 30 ml DAILY PRN PO CONSTIPATION; Start at 23:30 Bisacodyl (Dulcolax) 5 mg DAILY PRN PO CONSTIPATION; Start 08/27/16 at 23:30 Alprazolam (Xanax) 2 mg BID PRN PO ANXIETY Last administered on 09/08/16 09:10 ; Admin Dose 2 MG; Start 08/28/16 at 00:08 Hydromorphone HCl 1 mg 1 mg Q4H PRN IV PAIN Last administered on 09/08/16 18:51 ; Admin Dose 1 MG; Start 08/28/16 at 06:00 Ciprofloxacin/ Dextrose (Cipro Ivpb) 200 ml @ 200 mls/hr Q12 IVPB Last administered on 09/08/16 09:05; Admin Dose 200 MLS/HR; Start 09/01/16 at 21:00 IV Flush (NS 10 ml) 10 ml PRN PRN IV IV PROTOCOL; Start 09/03/16 at 14:30 Zolpidem Tartrate 5 mg 5 mg HS PRN PO INSOMNIA Last administered on 09/06/16 23 :41; Admin Dose 5 MG; Start 09/03/16 at 22:30 Metronidazole 100 ml @ 100 mls/hr Q8 IVPB Last administered on 09/08/16 13:16 ; Admin Dose 100 MLS/HR; Start 09/04/16 at 22:00 Vancomycin HCl (Vancocin) 250 ml @ 125 mls/hr Q8H IVPB Last administered on 15:09; Admin Dose 125 MLS/HR; Start 09/06/16 at 13:00 JEB VAZQUEZ MD Sep 08, 2016 19:02
--- NOTE | 2016-09-08 20:37 | CONS ---
Date/Time of Note Date/Time of Note DATE: 09/08/16 TIME: 20:33 Assessment/Plan Assessment/Plan Additional Assessment/Plan ASSESSMENT: 1. Systemic inflammatory response syndrome with fevers and leukocytosis secondary to #2. 2. Recurrent intraabdominal abscess status post CT-guided drainage, with fluid cultures growing gram-negative rods. 3. History of cholecystectomy. 4. History of biliary leak, status post stent placement on 07/19/2016. 5. Obesity PLAN: 1. continue IR drainage of the intraabdominal abscess. The pigtail catheter was changed from 10 [place] to 14 [place] and 30 cc of purulent material removed. There was also seroma clear fluid removed which was a second collection 2. Abx per ID labor relations consultant. 3. Follow final cultures. 4. repeat CT done and seroma drained 5.still there is 2.5 cm fluid collection.fluid is purulent and not biliary Consultation Date/Type/Reason Admit Date/Time August 27, 2016 at 16:10 Type of Consultation: ID [id number] HR Interval Summary Free Text/Dictation pain persistent Constitutional: improved Exam/Review of Systems Vital Signs Vitals Vital Signs Date Time Temp Pulse Resp B/P Pulse Ox O2 Delivery O2 Flow Rate FiO2 09/08/16 08:16 98.7 59 18 95/47 94 09/06/16 00:56 21 09/04/16 17:40 Simple Mask 2 Intake and Output 09/07/16 09/07/16 09/08/16 15:00 23:00 07:00 Intake Total 550 ml 1700 ml 1220 ml Output Total 5 ml 5 ml Balance 550 ml 1695 ml 1215 ml Exam Constitutional: alert, oriented, well developed Psych: nl mood/affect, no complaints Head: atraumatic, normocephalic Eyes: EOMI, PERRL, nl conjunctiva, nl lids, nl sclera ENMT: nl external ears & nose, nl lips & teeth, nl nasal mucosa & septum Neck: non-tender, supple Respiratory: clear to auscultation, normal air movement Cardiovascular: nl pulses, regular rate and rhythm Gastrointestinal: nl liver, spleen, non-tender, soft Musculoskeletal: nl extremities to inspection, nl gait and stance Extremities: normal pulses Neurological: PETROLOGIST II-XII intact, nl mental status, nl speech, nl strength Skin: nl turgor, No rash or lesions Lymph: nl lymph nodes Results Result Diagram: 09/08/16 0513 09/05/16 1410 Results 24 hrs Laboratory Tests Test 09/08/16 05:13 09/08/16 05:43 09/08/16 12:20 White Blood Count 11.3 H Red Blood Count 4.31 Hemoglobin 10.7 L Hematocrit 33.7 L Mean Corpuscular Volume 78.2 L Mean Corpuscular Hemoglobin 24.8 L Mean Corpuscular Hemoglobin Concent 31.8 L Red Cell Distribution Width 14.6 H Platelet Count 478 H Mean Platelet Volume 8.7 Neutrophils % 59.2 Lymphocytes % 29.5 Monocytes % 7.4 Eosinophils % 2.8 Basophils % 0.5 Nucleated Red Blood Cells % 0.0 Neutrophils # 6.7 Lymphocytes # 3.3 H Monocytes # 0.8 Eosinophils # 0.3 Basophils # 0.1 Nucleated Red Blood Cells # 0.0 Erythrocyte Sedimentation Rate 45 H Vancomycin Level Trough 13.2 Medications Medications Current Medications Acetaminophen (Tylenol Tab) 650 mg Q6H PRN PO PAIN AND OR ELEVATED TEMP Last administered on 08/29/16 09:01; Admin Dose 650 MG; Start 08/27/16 at 20:00 Gabapentin (Neurontin) 300 mg Q6H PO Last administered on 09/08/16 09:05; Admin Dose 300 MG; Start 08/27/16 at 20:30 Losartan Potassium (Cozaar) 25 mg DAILY@21 PO Last administered on 09/07/16 21: 02; Admin Dose 25 MG; Start 08/27/16 at 21:00 Ondansetron HCl (Zofran Tab) 4 mg Q8H PRN PO NAUSEA AND/OR VOMITING; Start at 20:30 Pantoprazole (Protonix Tab) 40 mg DAILY PO Last administered on 09/08/16 09:05 ; Admin Dose 40 MG; Start 08/28/16 at 09:00 Sertraline HCl (Zoloft) 200 mg DAILY PO Last administered on 09/08/16 10:02; Admin Dose 200 MG; Start 08/28/16 at 09:00 Ondansetron HCl (Zofran Inj) 4 mg Q6H PRN IV NAUSEA AND/OR VOMITING Last administered on 09/08/16 13:15; Admin Dose 4 MG; Start 08/27/16 at 23:30 Acetaminophen/ Hydrocodone Bitart ([place] (5/325)) 1 tab Q6H PRN PO MODERATE PAIN LEVEL 4-6 Last administered on 08/28/16 19:59; Admin Dose 1 TAB; Start at 23:30 Docusate Sodium (Colace) 100 mg Q12H PRN PO CONSTIPATION; Start 08/27/16 at 23: 30 Magnesium Hydroxide (Milk Of Mag) 30 ml DAILY PRN PO CONSTIPATION; Start at 23:30 Bisacodyl (Dulcolax) 5 mg DAILY PRN PO CONSTIPATION; Start 08/27/16 at 23:30 Alprazolam (Xanax) 2 mg BID PRN PO ANXIETY Last administered on 09/08/16 20:11 ; Admin Dose 2 MG; Start 08/28/16 at 00:08 Hydromorphone HCl 1 mg 1 mg Q4H PRN IV PAIN Last administered on 09/08/16 18:51 ; Admin Dose 1 MG; Start 08/28/16 at 06:00 Ciprofloxacin/ Dextrose (Cipro Ivpb) 200 ml @ 200 mls/hr Q12 IVPB Last administered on 09/08/16 20:06; Admin Dose 200 MLS/HR; Start 09/01/16 at 21:00 IV Flush (NS 10 ml) 10 ml PRN PRN IV IV PROTOCOL; Start 09/03/16 at 14:30 Zolpidem Tartrate 5 mg 5 mg HS PRN PO INSOMNIA Last administered on 09/06/16 23 :41; Admin Dose 5 MG; Start 09/03/16 at 22:30 Metronidazole 100 ml @ 100 mls/hr Q8 IVPB Last administered on 09/08/16 13:16 ; Admin Dose 100 MLS/HR; Start 09/04/16 at 22:00 Vancomycin HCl (Vancocin) 250 ml @ 125 mls/hr Q8H IVPB Last administered on 15:09; Admin Dose 125 MLS/HR; Start 09/06/16 at 13:00 JESUS AGUILAR MD Sep 08, 2016 20:37
[2016-09-08 20:39] VITALS: BP 118/57; RESP 21
[2016-09-08] MEDS: LOSARTAN 25 MG TAB PO SCH (22:15)
[2016-09-09] MEDS: ZOLPIDEM 5 MG TAB PO PRN (02:09)
[2016-09-09] MEDS: GABAPENTIN 300 MG CAP PO SCH ×4 (02:30→21:28)
[2016-09-09] MEDS: HYDROmorphONE 1 MG/ML SYG IV PRN ×6 (02:49→22:43)
[2016-09-09] MEDS: VANCOMYCIN 1 GM in NS 250 ML IVPB SCH ×2 (04:01→12:54)
[2016-09-09 05:53] LABS: ADD SCAN DIFF NO
[2016-09-09 05:59] LABS: BASOPHIL # 0.1 10^3/ul (0.0-0.1); BASOPHILS % 0.6 % (0.0-2.0); EOSINOPHILS # 0.3 10^3/ul (0.0-0.5); EOSINOPHILS % 2.9 % (0.0-7.0); HEMOGLOBIN 10.5 g/dl (12.0-16.0); LYMPHOCYTES # 4.1 10^3/ul (0.8-2.9); LYMPHOCYTES % 36.6 % (15.0-51.0); MEAN CORPUSCULAR HEMOGLOBIN 24.5 pg (29.0-33.0); MEAN CORPUSCULAR HGB CONC 30.9 g/dl (32.0-37.0); MEAN CORPUSCULAR VOLUME 79.3 fl (82.0-101.0); MONOCYTE # 0.8 10^3/ul (0.3-0.9); MONOCYTES % 7.1 % (0.0-11.0); NEUTROPHIL # 5.9 10^3/ul (1.6-7.5); NEUTROPHILS % 52.4 % (39.0-77.0); PLATELET COUNT 485 10^3/UL (140-415); RED BLOOD COUNT 4.29 10^6/ul (4.20-5.40); RED CELL DISTRIBUTION WIDTH 15.2 % (11.5-14.5); WHITE BLOOD COUNT 11.3 10^3/ul (4.8-10.8)
[2016-09-09] MEDS: metroNIDAZOLE 500 MG/NS (PMX) 100 ML IVPB SCH ×3 (06:01→22:43)
[2016-09-09 06:22] LABS: CREATININE 0.53 mg/dl (0.44-1.00)
--- NOTE | 2016-09-09 07:10 | PN ---
DATE: 09/08/2016 SUBJECTIVE: Basically feels better. Has had some nausea. No fever, no chills. Has had a bowel movement. OBJECTIVE: VITAL SIGNS: Temperature 98.7, heart rate 59, respirations 18, blood pressure 95/47, saturation 94% on room air. LABORATORY DATA: Today, WBC 11,300 with 59% segmented, . ESR 45, elevated. Chemistry: BUN, creatinine, sodium, and potassium are within normal limits. The pigtail tube drainage in the past 24 hours has been 110 mL. It is not purulent. It has been every 6 hours flushed with normal saline and aspirated, but there is no purulent material coming out. Some serosanguineous fluid is being aspirated after irrigation. Total ____ spontaneous drainage only 10 mL. ASSESSMENT: Intra-abdominal abscess has been drained with pigtail drainage. The last time it was changed on 09/08/2016, the catheter was replaced from a # 10 to a #12 pigtail trial to permit better drainage. Today, Dr. Dixon and I saw the patient, again examined. The decision was made to proceed with a fistulogram through pigtail to evaluate for two reasons. One, the remaining cavity of the abscess and secondly to make sure that there is no connection with a different cavity of the abscess and the bowel. This was discussed with Dr. Romero He agreed with that as well. So we will see what we are going to do today afternoon. After the result is available, then we will make a decision that what are we going to do with the pigtail catheter and what will be next step. Dictated By: BRADLY UGALDE MD PS/NTS Conf#: [id number] DID#: [id number] CC: JEB VAZQUEZ MD;*EndCC* MTDD
[2016-09-09] MEDS: PANTOPRAZOLE (EC) 40 MG TAB PO SCH (08:56)
[2016-09-09] MEDS: SERTRALINE 100 MG TAB PO SCH (08:56)
[2016-09-09] MEDS: CIPROFLOXACIN 400MG/D5W 200 ML IVPB SCH ×2 (08:57→21:28)
[2016-09-09 09:11] VITALS: BP 98/56; PULSE 63; RESP 20
[2016-09-09] MEDS: ONDANSETRON 4 MG INJ IV PRN (10:39)
--- NOTE | 2016-09-09 14:39 | CONS ---
Date/Time of Note Date/Time of Note DATE: 09/09/16 TIME: 14:39 Assessment/Plan Assessment/Plan Chief Complaint/Hosp Course SUBJECTIVE: No acute events. Alert, with on/off nausea and abdominal pain. No fevers. MICROBIOLOGY: Aspirated abdominal fluid culture from 09/05 negative. INDWELLINGS: Right-sided intra-abdominal drainage catheter. ANTIMICROBIALS: 1. Vancomycin. 2. Ciprofloxacin. 3. Flagyl. PHYSICAL EXAMINATION: GENERAL: This is a morbidly obese, well-developed, middle-aged woman who is alert, in no distress. HEENT: Head atraumatic, normocephalic. Sclerae anicteric. Buccal mucosa pink. NECK: Supple. CHEST: Rise symmetrical. Breath sounds clear. HEART: S1, S2. ABDOMEN: Soft. Bowel tones present. ASSESSMENT: 1. Recurrent intraabdominal abscess status post CT-guided drainage aspiration with a catheter exchanged to a bigger size on 09/05/16 and 30 mL of purulent fluid being aspirated during procedure and sent for culture. 2. Status post CT-guided aspiration of perihepatic fluid, likely seroma on 04/2016. 3. History of laparoscopic cholecystectomy and biliary leak, status post stent placement in 07/2016. 4. Obesity. 5. Systemic inflammatory response syndrome secondary to above. PLAN: The patient remains stable, continue present care, abx, f/u GI/surgical rec-s, needs chcf abx. DW staff/pt Problems: Consultation Date/Type/Reason Admit Date/Time August 27, 2016 at 16:10 Type of Consultation: ID Exam/Review of Systems Vital Signs Vitals Vital Signs Date Time Temp Pulse Resp B/P Pulse Ox O2 Delivery O2 Flow Rate FiO2 09/09/16 09:11 97.9 63 20 98/56 95 Room Air 09/06/16 00:56 21 Intake and Output 09/08/16 09/08/16 09/09/16 15:00 23:00 07:00 Intake Total 300 ml 1710 ml 1460 ml Output Total 20 ml Balance 300 ml 1710 ml 1440 ml Results Result Diagram: 09/09/16 0515 09/09/16 0515 Results 24 hrs Laboratory Tests Test 09/09/16 05:15 White Blood Count 11.3 H Red Blood Count 4.29 Hemoglobin 10.5 L Hematocrit 34.0 L Mean Corpuscular Volume 79.3 L Mean Corpuscular Hemoglobin 24.5 L Mean Corpuscular Hemoglobin Concent 30.9 L Red Cell Distribution Width 15.2 H Platelet Count 485 H Mean Platelet Volume 9.0 Neutrophils % 52.4 Lymphocytes % 36.6 Monocytes % 7.1 Eosinophils % 2.9 Basophils % 0.6 Nucleated Red Blood Cells % 0.0 Neutrophils # 5.9 Lymphocytes # 4.1 H Monocytes # 0.8 Eosinophils # 0.3 Basophils # 0.1 Nucleated Red Blood Cells # 0.0 Blood Urea Nitrogen 6 L Creatinine 0.53 Medications Medications Current Medications Acetaminophen (Tylenol Tab) 650 mg Q6H PRN PO PAIN AND OR ELEVATED TEMP Last administered on 08/29/16 09:01; Admin Dose 650 MG; Start 08/27/16 at 20:00 Gabapentin (Neurontin) 300 mg Q6H PO Last administered on 09/09/16 08:56; Admin Dose 300 MG; Start 08/27/16 at 20:30 Ondansetron HCl (Zofran Tab) 4 mg Q8H PRN PO NAUSEA AND/OR VOMITING; Start at 20:30 Pantoprazole (Protonix Tab) 40 mg DAILY PO Last administered on 09/09/16 08:56 ; Admin Dose 40 MG; Start 08/28/16 at 09:00 Sertraline HCl (Zoloft) 200 mg DAILY PO Last administered on 09/09/16 08:56; Admin Dose 200 MG; Start 08/28/16 at 09:00 Ondansetron HCl (Zofran Inj) 4 mg Q6H PRN IV NAUSEA AND/OR VOMITING Last administered on 09/09/16 10:39; Admin Dose 4 MG; Start 08/27/16 at 23:30 Acetaminophen/ Hydrocodone Bitart ([place] (5/325)) 1 tab Q6H PRN PO MODERATE PAIN LEVEL 4-6 Last administered on 08/28/16 19:59; Admin Dose 1 TAB; Start at 23:30 Docusate Sodium (Colace) 100 mg Q12H PRN PO CONSTIPATION; Start 08/27/16 at 23: 30 Magnesium Hydroxide (Milk Of Mag) 30 ml DAILY PRN PO CONSTIPATION; Start at 23:30 Bisacodyl (Dulcolax) 5 mg DAILY PRN PO CONSTIPATION; Start 08/27/16 at 23:30 Alprazolam (Xanax) 2 mg BID PRN PO ANXIETY Last administered on 09/08/16 20:11 ; Admin Dose 2 MG; Start 08/28/16 at 00:08 Hydromorphone HCl 1 mg 1 mg Q4H PRN IV PAIN Last administered on 09/09/16 10:28 ; Admin Dose 1 MG; Start 08/28/16 at 06:00 Ciprofloxacin/ Dextrose (Cipro Ivpb) 200 ml @ 200 mls/hr Q12 IVPB Last administered on 09/09/16 08:57; Admin Dose 200 MLS/HR; Start 09/01/16 at 21:00 IV Flush (NS 10 ml) 10 ml PRN PRN IV IV PROTOCOL; Start 09/03/16 at 14:30 Zolpidem Tartrate 5 mg 5 mg HS PRN PO INSOMNIA Last administered on 09/09/16 02 :09; Admin Dose 5 MG; Start 09/03/16 at 22:30 Metronidazole 100 ml @ 100 mls/hr Q8 IVPB Last administered on 09/09/16 06:01 ; Admin Dose 100 MLS/HR; Start 09/04/16 at 22:00 Vancomycin HCl (Vancocin) 250 ml @ 125 mls/hr Q8H IVPB Last administered on 12:54; Admin Dose 125 MLS/HR; Start 09/06/16 at 13:00 Losartan Potassium (Cozaar) 25 mg DAILY@21 PO Last administered on 09/08/16 22: 15; Admin Dose 25 MG; Start 09/08/16 at 21:00 ABNER BALL NP Sep 09, 2016 14:39
[2016-09-09] MEDS: ALPRAZOLAM 0.5 MG TAB PO PRN (16:07)
[2016-09-09 21:00] VITALS: BP 106/54; RESP 20
[2016-09-09] MEDS: LOSARTAN 25 MG TAB PO SCH (21:28)
--- NOTE | 2016-09-09 22:43 | CONS ---
Date/Time of Note Date/Time of Note DATE: 09/09/16 TIME: 22:42 Assessment/Plan Assessment/Plan Additional Assessment/Plan ASSESSMENT: 1. Systemic inflammatory response syndrome with fevers and leukocytosis secondary to #2. 2. Recurrent intraabdominal abscess status post CT-guided drainage, with fluid cultures growing gram-negative rods. 3. History of cholecystectomy. 4. History of biliary leak, status post stent placement on 07/19/2016. 5. Obesity PLAN: 1. continue IR drainage of the intraabdominal abscess. The pigtail catheter was changed from 10 Iranian to 14 [place] and 30 cc of purulent material removed. There was also seroma clear fluid removed which was a second collection 2. Abx per ID law firm consultant. 3. Follow final cultures. 4. repeat CT done and seroma drained 5.still there is 2.5 cm fluid collection.fluid is purulent and not biliary Consultation Date/Type/Reason Admit Date/Time August 27, 2016 at 16:10 Type of Consultation: ID 24 HR Interval Summary Constitutional: no complaints Exam/Review of Systems Vital Signs Vitals Vital Signs Date Time Temp Pulse Resp B/P Pulse Ox O2 Delivery O2 Flow Rate FiO2 09/09/16 09:11 97.9 63 20 98/56 95 Room Air 09/06/16 00:56 21 Intake and Output 09/08/16 09/08/16 09/09/16 15:00 23:00 07:00 Intake Total 300 ml 1710 ml 1460 ml Output Total 20 ml Balance 300 ml 1710 ml 1440 ml Exam Constitutional: alert, oriented, well developed Psych: nl mood/affect, no complaints Head: atraumatic, normocephalic Eyes: EOMI, PERRL, nl conjunctiva, nl lids, nl sclera ENMT: nl external ears & nose, nl lips & teeth, nl nasal mucosa & septum Neck: non-tender, supple Respiratory: clear to auscultation, normal air movement Cardiovascular: nl pulses, regular rate and rhythm Gastrointestinal: nl liver, spleen, non-tender, soft Musculoskeletal: nl extremities to inspection, nl gait and stance Extremities: normal pulses Neurological: SHEAR SETTER II-XII intact, nl mental status, nl speech, nl strength Skin: nl turgor, No rash or lesions Lymph: nl lymph nodes Results Result Diagram: 6/6/17 0515 6/6/17 0515 Results 24 hrs Laboratory Tests Test 09/09/16 05:15 White Blood Count 11.3 H Red Blood Count 4.29 Hemoglobin 10.5 L Hematocrit 34.0 L Mean Corpuscular Volume 79.3 L Mean Corpuscular Hemoglobin 24.5 L Mean Corpuscular Hemoglobin Concent 30.9 L Red Cell Distribution Width 15.2 H Platelet Count 485 H Mean Platelet Volume 9.0 Neutrophils % 52.4 Lymphocytes % 36.6 Monocytes % 7.1 Eosinophils % 2.9 Basophils % 0.6 Nucleated Red Blood Cells % 0.0 Neutrophils # 5.9 Lymphocytes # 4.1 H Monocytes # 0.8 Eosinophils # 0.3 Basophils # 0.1 Nucleated Red Blood Cells # 0.0 Blood Urea Nitrogen 6 L Creatinine 0.53 Medications Medications Current Medications Acetaminophen (Tylenol Tab) 650 mg Q6H PRN PO PAIN AND OR ELEVATED TEMP Last administered on 08/29/16 09:01; Admin Dose 650 MG; Start 08/27/16 at 20:00 Gabapentin (Neurontin) 300 mg Q6H PO Last administered on 09/09/16 21:28; Admin Dose 300 MG; Start 08/27/16 at 20:30 Ondansetron HCl (Zofran Tab) 4 mg Q8H PRN PO NAUSEA AND/OR VOMITING; Start at 20:30 Pantoprazole (Protonix Tab) 40 mg DAILY PO Last administered on 09/09/16 08:56 ; Admin Dose 40 MG; Start 08/28/16 at 09:00 Sertraline HCl (Zoloft) 200 mg DAILY PO Last administered on 09/09/16 08:56; Admin Dose 200 MG; Start 08/28/16 at 09:00 Ondansetron HCl (Zofran Inj) 4 mg Q6H PRN IV NAUSEA AND/OR VOMITING Last administered on 09/09/16 10:39; Admin Dose 4 MG; Start 08/27/16 at 23:30 Acetaminophen/ Hydrocodone Bitart ([place] (5/325)) 1 tab Q6H PRN PO MODERATE PAIN LEVEL 4-6 Last administered on 08/28/16 19:59; Admin Dose 1 TAB; Start at 23:30 Docusate Sodium (Colace) 100 mg Q12H PRN PO CONSTIPATION; Start 08/27/16 at 23: 30 Magnesium Hydroxide (Milk Of Mag) 30 ml DAILY PRN PO CONSTIPATION; Start at 23:30 Bisacodyl (Dulcolax) 5 mg DAILY PRN PO CONSTIPATION; Start 08/27/16 at 23:30 Alprazolam (Xanax) 2 mg BID PRN PO ANXIETY Last administered on 09/09/16 16:07 ; Admin Dose 2 MG; Start 08/28/16 at 00:08 Hydromorphone HCl 1 mg 1 mg Q4H PRN IV PAIN Last administered on 09/09/16 18:31 ; Admin Dose 1 MG; Start 08/28/16 at 06:00 Ciprofloxacin/ Dextrose (Cipro Ivpb) 200 ml @ 200 mls/hr Q12 IVPB Last administered on 09/09/16 21:28; Admin Dose 200 MLS/HR; Start 09/01/16 at 21:00 IV Flush (NS 10 ml) 10 ml PRN PRN IV IV PROTOCOL; Start 09/03/16 at 14:30 Zolpidem Tartrate 5 mg 5 mg HS PRN PO INSOMNIA Last administered on 09/09/16 02 :09; Admin Dose 5 MG; Start 09/03/16 at 22:30 Metronidazole 100 ml @ 100 mls/hr Q8 IVPB Last administered on 09/09/16 14:39 ; Admin Dose 100 MLS/HR; Start 09/04/16 at 22:00 Vancomycin HCl (Vancocin) 250 ml @ 125 mls/hr Q8H IVPB Last administered on 12:54; Admin Dose 125 MLS/HR; Start 09/06/16 at 13:00 Losartan Potassium (Cozaar) 25 mg DAILY@21 PO Last administered on 09/09/16 21: 28; Admin Dose 25 MG; Start 09/08/16 at 21:00 JESUS AGUILAR MD Sep 09, 2016 22:43
--- NOTE | 2016-09-09 22:59 | PN ---
Date/Time of Note Date/Time of Note DATE: 09/09/16 TIME: 22:57 Assessment/Plan VTE Prophylaxis VTE Prophylaxis Intervention: other Lines/Catheters IV Catheter Type (from Nrsg): PICC Line Central line still needed: Yes Urinary Cath still in place: No Reason Cath still needed: other (indicate) Assessment/Plan Chief Complaint/Hosp Course IMPRESSION: 1. The patient has right upper quadrant abscess, possibly biloma. 2. The patient has leukocytosis. 3. History of cholecystectomy. 4. Anemia. 5. Hypokalemia.better 6. Obesity. 7. Dyslipidemia. 8. Anxiety. 9. Insomnia. planantibiotic PER GI AND ID and surgery drain care d/w dr parra he will decide about surgical intervention Problems: Subjective 24 Hr Interval Summary Cardiovascular: no complaints Gastrointestinal: pain (+) Exam/Review of Systems Vital Signs Vitals Vital Signs Date Time Temp Pulse Resp B/P Pulse Ox O2 Delivery O2 Flow Rate FiO2 09/09/16 09:11 97.9 63 20 98/56 95 Room Air 09/06/16 00:56 21 Intake and Output 09/08/16 09/08/16 09/09/16 15:00 23:00 07:00 Intake Total 300 ml 1710 ml 1460 ml Output Total 20 ml Balance 300 ml 1710 ml 1440 ml Exam Respiratory: clear to auscultation Cardiovascular: regular rate and rhythm Gastrointestinal: bowel sounds (+), soft Results Result Diagram: 09/09/16 0515 09/09/16 0515 Results 24 hrs Laboratory Tests Test 09/09/16 05:15 White Blood Count 11.3 H Red Blood Count 4.29 Hemoglobin 10.5 L Hematocrit 34.0 L Mean Corpuscular Volume 79.3 L Mean Corpuscular Hemoglobin 24.5 L Mean Corpuscular Hemoglobin Concent 30.9 L Red Cell Distribution Width 15.2 H Platelet Count 485 H Mean Platelet Volume 9.0 Neutrophils % 52.4 Lymphocytes % 36.6 Monocytes % 7.1 Eosinophils % 2.9 Basophils % 0.6 Nucleated Red Blood Cells % 0.0 Neutrophils # 5.9 Lymphocytes # 4.1 H Monocytes # 0.8 Eosinophils # 0.3 Basophils # 0.1 Nucleated Red Blood Cells # 0.0 Blood Urea Nitrogen 6 L Creatinine 0.53 Medications Medications Current Medications Acetaminophen (Tylenol Tab) 650 mg Q6H PRN PO PAIN AND OR ELEVATED TEMP Last administered on 08/29/16 09:01; Admin Dose 650 MG; Start 08/27/16 at 20:00 Gabapentin (Neurontin) 300 mg Q6H PO Last administered on 09/09/16 21:28; Admin Dose 300 MG; Start 08/27/16 at 20:30 Ondansetron HCl (Zofran Tab) 4 mg Q8H PRN PO NAUSEA AND/OR VOMITING; Start at 20:30 Pantoprazole (Protonix Tab) 40 mg DAILY PO Last administered on 09/09/16 08:56 ; Admin Dose 40 MG; Start 08/28/16 at 09:00 Sertraline HCl (Zoloft) 200 mg DAILY PO Last administered on 09/09/16 08:56; Admin Dose 200 MG; Start 08/28/16 at 09:00 Ondansetron HCl (Zofran Inj) 4 mg Q6H PRN IV NAUSEA AND/OR VOMITING Last administered on 09/09/16 10:39; Admin Dose 4 MG; Start 08/27/16 at 23:30 Acetaminophen/ Hydrocodone Bitart ([place] (5/325)) 1 tab Q6H PRN PO MODERATE PAIN LEVEL 4-6 Last administered on 08/28/16 19:59; Admin Dose 1 TAB; Start at 23:30 Docusate Sodium (Colace) 100 mg Q12H PRN PO CONSTIPATION; Start 08/27/16 at 23: 30 Magnesium Hydroxide (Milk Of Mag) 30 ml DAILY PRN PO CONSTIPATION; Start at 23:30 Bisacodyl (Dulcolax) 5 mg DAILY PRN PO CONSTIPATION; Start 08/27/16 at 23:30 Alprazolam (Xanax) 2 mg BID PRN PO ANXIETY Last administered on 09/09/16 16:07 ; Admin Dose 2 MG; Start 08/28/16 at 00:08 Hydromorphone HCl 1 mg 1 mg Q4H PRN IV PAIN Last administered on 09/09/16 22:43 ; Admin Dose 1 MG; Start 08/28/16 at 06:00 Ciprofloxacin/ Dextrose (Cipro Ivpb) 200 ml @ 200 mls/hr Q12 IVPB Last administered on 09/09/16 21:28; Admin Dose 200 MLS/HR; Start 09/01/16 at 21:00 IV Flush (NS 10 ml) 10 ml PRN PRN IV IV PROTOCOL; Start 09/03/16 at 14:30 Zolpidem Tartrate 5 mg 5 mg HS PRN PO INSOMNIA Last administered on 09/09/16 02 :09; Admin Dose 5 MG; Start 09/03/16 at 22:30 Metronidazole 100 ml @ 100 mls/hr Q8 IVPB Last administered on 09/09/16 22:43 ; Admin Dose 100 MLS/HR; Start 09/04/16 at 22:00 Vancomycin HCl (Vancocin) 250 ml @ 125 mls/hr Q8H IVPB Last administered on 12:54; Admin Dose 125 MLS/HR; Start 09/06/16 at 13:00 Losartan Potassium (Cozaar) 25 mg DAILY@21 PO Last administered on 09/09/16 21: 28; Admin Dose 25 MG; Start 09/08/16 at 21:00 JEB VAZQUEZ MD Sep 09, 2016 22:58
[2016-09-10] MEDS: VANCOMYCIN 1 GM in NS 250 ML IVPB SCH ×4 (00:12→17:11)
[2016-09-10] MEDS: ALPRAZOLAM 0.5 MG TAB PO PRN ×2 (00:12→12:33)
[2016-09-10] MEDS: GABAPENTIN 300 MG CAP PO SCH ×3 (02:43→14:38)
[2016-09-10] MEDS: HYDROmorphONE 1 MG/ML SYG IV PRN ×5 (02:48→18:35)
[2016-09-10] MEDS: metroNIDAZOLE 500 MG/NS (PMX) 100 ML IVPB SCH ×2 (06:28→14:37)
--- NOTE | 2016-09-10 07:36 | PN ---
DATE: 09/09/2016 SUBJECTIVE: Does not have any specific complaint. Minimal right upper quadrant abdominal pain, no nausea, no vomiting. OBJECTIVE: GENERAL: Awake, alert, oriented x3. VITAL SIGNS: Temperature 97.9, heart rate 62_regular, respiration 20, blood pressure 98/56, saturation 95% room air. The pigtail drain has drained urine in the past 24 hours after testing for sinogram, about 20 mL of fluid, serosanguineous color. Today i flushed, right now, with 10 mL saline and 10 mL was aspirated back, slight debris in it with minimal serosanguineous color. Abdomen is soft. The sinus tract injection which was done last night, the report is as follows: The injection of the catheter in the right upper abdominal quadrant under fluoroscopy does not demonstrate a fistulous connection to any bowel. The contrast injection of the drainage catheter in the right upper quadrant demonstrates a ____2.5 x 1.5 cm cavity in the right upper abdominal quadrant, no evidence of contrast leakage is identified. No evidence of bowel opacification is identified to suggest a bowel leak or perforation. Therefore, the cavity, which appears to be the abscess cavity was 9 x 5 cm mass, came down to 2.5 x 1.5 cm. ASSESSMENT AND PLAN: I discussed with the radiologist who did the test in detail and I will discuss with Dr. Dixon, the surgeon in detail and we have decided that the ultimate decision surgically is to discharge the patient with the pigtail drain in place if it is okay with the PCP and is okay with the infectious disease, and keep the drain in place. If the home health nurse care can manage to go to the patient's home and flush it once a day at least and aspirate it and record the drainage, after 1 week the patient will go back to Dr. Dixon' office and if the drainage is minimal, then, Dr. Dixon can remove the pigtail drain in the office. Patient may receive antibiotics per the infectious disease recommendation. Dictated By: BRADLY CORTES/ARGELIA Conf#: [id number] DID#: [id number]
[2016-09-10 08:00] VITALS: BP 101/52; RESP 18
[2016-09-10] MEDS: SERTRALINE 100 MG TAB PO SCH (08:23)
[2016-09-10] MEDS: PANTOPRAZOLE (EC) 40 MG TAB PO SCH (08:23)
[2016-09-10] MEDS: ONDANSETRON 4 MG INJ IV PRN (08:28)
[2016-09-10] MEDS: CIPROFLOXACIN 400MG/D5W 200 ML IVPB SCH (08:28)
--- NOTE | 2016-09-10 13:09 | CONS ---
Date/Time of Note Date/Time of Note DATE: 09/10/16 TIME: 13:08 Assessment/Plan Assessment/Plan Chief Complaint/Hosp Course SUBJECTIVE: No acute events. Alert, feels good.No fevers. MICROBIOLOGY: Aspirated abdominal fluid culture from 09/05 negative. INDWELLINGS: Right-sided intra-abdominal drainage catheter. ANTIMICROBIALS: 1. Vancomycin. 2. Ciprofloxacin. 3. Flagyl. PHYSICAL EXAMINATION: GENERAL: This is a morbidly obese, well-developed, middle-aged woman who is alert, in no distress. HEENT: Head atraumatic, normocephalic. Sclerae anicteric. Buccal mucosa pink. NECK: Supple. CHEST: Rise symmetrical. Breath sounds clear. HEART: S1, S2. ABDOMEN: Soft. Bowel tones present. ASSESSMENT: 1. Recurrent intraabdominal abscess status post CT-guided drainage aspiration with a catheter exchanged to a bigger size on 09/05/16 and 30 mL of purulent fluid being aspirated during procedure and sent for culture. 2. Status post CT-guided aspiration of perihepatic fluid, likely seroma on 04/2016. 3. History of laparoscopic cholecystectomy and biliary leak, status post stent placement in 07/2016. 4. Obesity. 5. Systemic inflammatory response syndrome secondary to above. PLAN: The patient remains stable, continue present care,f/u GI/surgical rec-s, abx for 4 weeks, poss longer, f/u with surgery outpatient staff/pt Problems: Consultation Date/Type/Reason Admit Date/Time August 27, 2016 at 16:10 Type of Consultation: ID Exam/Review of Systems Vital Signs Vitals Vital Signs Date Time Temp Pulse Resp B/P Pulse Ox O2 Delivery O2 Flow Rate FiO2 09/09/16 21:00 99.2 61 20 106/54 97 09/09/16 09:11 Room Air Intake and Output 09/09/16 09/09/16 09/10/16 15:00 23:00 07:00 Intake Total 550 ml 980 ml 720 ml Output Total 30 ml 30 ml Balance 550 ml 950 ml 690 ml Results Result Diagram: 09/09/16 0515 09/09/16 0515 Medications Medications Current Medications Acetaminophen (Tylenol Tab) 650 mg Q6H PRN PO PAIN AND OR ELEVATED TEMP Last administered on 08/29/16t 09:01; Admin Dose 650 MG; Start 08/27/16 at 20:00 Gabapentin (Neurontin) 300 mg Q6H PO Last administered on 09/10/16 08:23; Admin Dose 300 MG; Start 08/27/16 at 20:30 Ondansetron HCl (Zofran Tab) 4 mg Q8H PRN PO NAUSEA AND/OR VOMITING; Start at 20:30 Pantoprazole (Protonix Tab) 40 mg DAILY PO Last administered on 09/10/16 08:23 ; Admin Dose 40 MG; Start 08/28/16 at 09:00 Sertraline HCl (Zoloft) 200 mg DAILY PO Last administered on 09/10/16 08:23; Admin Dose 200 MG; Start 08/28/16 at 09:00 Ondansetron HCl (Zofran Inj) 4 mg Q6H PRN IV NAUSEA AND/OR VOMITING Last administered on 09/10/16 08:28; Admin Dose 4 MG; Start 08/27/16 at 23:30 Acetaminophen/ Hydrocodone Bitart (Sylvester (5/325)) 1 tab Q6H PRN PO MODERATE PAIN LEVEL 4-6 Last administered on 08/28/16 19:59; Admin Dose 1 TAB; Start at 23:30 Docusate Sodium (Colace) 100 mg Q12H PRN PO CONSTIPATION; Start 08/27/16 at 23: 30 Magnesium Hydroxide (Milk Of Mag) 30 ml DAILY PRN PO CONSTIPATION; Start at 23:30 Bisacodyl (Dulcolax) 5 mg DAILY PRN PO CONSTIPATION; Start 08/27/16 at 23:30 Alprazolam (Xanax) 2 mg BID PRN PO ANXIETY Last administered on 09/10/16 12:33 ; Admin Dose 2 MG; Start 08/28/16 at 00:08 Hydromorphone HCl 1 mg 1 mg Q4H PRN IV PAIN Last administered on 09/10/16 10:39 ; Admin Dose 1 MG; Start 08/28/16 at 06:00 Ciprofloxacin/ Dextrose (Cipro Ivpb) 200 ml @ 200 mls/hr Q12 IVPB Last administered on 09/10/16 08:28; Admin Dose 200 MLS/HR; Start 09/01/16 at 21:00 IV Flush (NS 10 ml) 10 ml PRN PRN IV IV PROTOCOL; Start 09/03/16 at 14:30 Zolpidem Tartrate 5 mg 5 mg HS PRN PO INSOMNIA Last administered on 09/09/16 02 :09; Admin Dose 5 MG; Start 09/03/16 at 22:30 Metronidazole 100 ml @ 100 mls/hr Q8 IVPB Last administered on 09/10/16 06:28 ; Admin Dose 100 MLS/HR; Start 09/04/16 at 22:00 Vancomycin HCl (Vancocin) 250 ml @ 125 mls/hr Q8H IVPB Last administered on 12:34; Admin Dose 125 MLS/HR; Start 09/06/16 at 13:00 Losartan Potassium (Cozaar) 25 mg DAILY@21 PO Last administered on 09/09/16 21: 28; Admin Dose 25 MG; Start 09/08/16 at 21:00 ABNER BALL NP Sep 10, 2016 13:09
--- NOTE | 2016-09-10 14:58 | PN ---
DATE: 09/10/2016 SUBJECTIVE: No new complaints, feels better. OBJECTIVE: VITAL SIGNS: Temperature 98.4, last night had spiked up to 99.2. Heart rate 61 , respirations 18, blood pressure 100/52, saturation 96% on room air. LABS: There is no lab result available for today. The pigtail drain apparently has drained 60 mL in the past 24 hours. The color has been serosanguineous and since morning, now it is 2:00 p.m., since early a.m. there is only 5 mL in the bag which is serosanguineous. It is not purulent. ABDOMEN: Soft. ASSESSMENT: The patient with recurrent intraabdominal abscess inferior to the right lobe of the liver. it_has been drained percutaneously by the pigtail and the culture has grown Staph, Enterococcus, and E. coli. The patient has been on antibiotic IV. The patient has a PICC line, last time 2 days ago we did a sinogram and shows the cavity has shrunken much and there is no connection with the bowel. PLAN: The patient can be discharged from a surgical point of view today, to be followed by Dr. Dixon in the office in 1 week. Meanwhile, the patient will go home with PICC line and the antibiotic will be determined by the infectious disease _ and how much she should get. The nurses are planning to find a home health care system so that they can administer the antibiotic IV at home and also once a day to flush the pigtail drainage to prevent clogging of the tubes. The patient also knows how to take care of the drainage from the pigtail and _ ___. The patient to call Dr. Dixon' office and make an appointment for 1 week from the time of discharge. Dictated By: BRADLY CORTES/ARGELIA Conf#: [id number] DID#: [id number] EDE
--- NOTE | 2016-09-10 18:19 | PDOCDIS ---
Discharge Instructions CONDITION Patient Condition: Stable HOME CARE INSTRUCTIONS: Special Diet: Low fat/chol diet ACTIVITY: Activity Restrictions: Slowly Increase Activity FOLLOW UP/APPOINTMENTS Appointments f/u own pcp 1 wk [address] parra [address] ramos 1 wk JEB VAZQUEZ MD Sep 10, 2016 18:19
[2016-09-10] MEDS ORDERED: DOCU-216 PO (18:21)
[2016-09-10] MEDS ORDERED: BISA5TAB6 PO (18:21)
--- NOTE | 2016-09-10 18:23 | PN ---
Date/Time of Note Date/Time of Note DATE: 09/10/16 TIME: 18:22 Assessment/Plan VTE Prophylaxis VTE Prophylaxis Intervention: other Lines/Catheters IV Catheter Type (from Nrs): PICC Line Central line still needed: Yes Urinary Cath still in place: No Assessment/Plan Chief Complaint/Hosp Course IMPRESSION: 1. The patient has right upper quadrant abscess, possibly biloma. 2. The patient has leukocytosis. 3. History of cholecystectomy. 4. Anemia. 5. Hypokalemia.better 6. Obesity. 7. Dyslipidemia. 8. Anxiety. 9. Insomnia. planantibiotic PER GI AND ID and surgery drain care d/w dr parra home Problems: Subjective 24 Hr Interval Summary Respiratory: no complaints Cardiovascular: no complaints Exam/Review of Systems Vital Signs Vitals Vital Signs Date Time Temp Pulse Resp B/P Pulse Ox O2 Delivery O2 Flow Rate FiO2 09/10/16 08:00 98.4 18 18 101/52 96 09/09/16 09:11 Room Air Intake and Output 09/09/16 09/09/16 09/10/16 15:00 23:00 07:00 Intake Total 550 ml 980 ml 720 ml Output Total 30 ml 30 ml Balance 550 ml 950 ml 690 ml Exam Respiratory: clear to auscultation Cardiovascular: regular rate and rhythm Gastrointestinal: bowel sounds, soft Results Result Diagram: 09/09/16 0515 09/09/16 0515 Medications Medications Current Medications Acetaminophen (Tylenol Tab) 650 mg Q6H PRN PO PAIN AND OR ELEVATED TEMP Last administered on 08/29/16 09:01; Admin Dose 650 MG; Start 08/27/16 at 20:00 Gabapentin (Neurontin) 300 mg Q6H PO Last administered on 09/10/16 14:38; Admin Dose 300 MG; Start 08/27/16 at 20:30 Ondansetron HCl (Zofran Tab) 4 mg Q8H PRN PO NAUSEA AND/OR VOMITING; Start at 20:30 Pantoprazole (Protonix Tab) 40 mg DAILY PO Last administered on 09/10/16 08:23 ; Admin Dose 40 MG; Start 08/28/16 at 09:00 Sertraline HCl (Zoloft) 200 mg DAILY PO Last administered on 09/10/16 08:23; Admin Dose 200 MG; Start 08/28/16 at 09:00 Ondansetron HCl (Zofran Inj) 4 mg Q6H PRN IV NAUSEA AND/OR VOMITING Last administered on 09/10/16 08:28; Admin Dose 4 MG; Start 08/27/16 at 23:30 Acetaminophen/ Hydrocodone Bitart ([place] (5/325)) 1 tab Q6H PRN PO MODERATE PAIN LEVEL 4-6 Last administered on 08/28/16 19:59; Admin Dose 1 TAB; Start at 23:30 Docusate Sodium (Colace) 100 mg Q12H PRN PO CONSTIPATION; Start 08/27/16 at 23: 30 Magnesium Hydroxide (Milk Of Mag) 30 ml DAILY PRN PO CONSTIPATION; Start at 23:30 Bisacodyl (Dulcolax) 5 mg DAILY PRN PO CONSTIPATION; Start 08/27/16 at 23:30 Alprazolam (Xanax) 2 mg BID PRN PO ANXIETY Last administered on 09/10/16 12:33 ; Admin Dose 2 MG; Start 08/28/16 at 00:08 Hydromorphone HCl 1 mg 1 mg Q4H PRN IV PAIN Last administered on 09/10/16 14:37 ; Admin Dose 1 MG; Start 08/28/16 at 06:00 Ciprofloxacin/ Dextrose (Cipro Ivpb) 200 ml @ 200 mls/hr Q12 IVPB Last administered on 09/10/16 08:28; Admin Dose 200 MLS/HR; Start 09/01/16 at 21:00 IV Flush (NS 10 ml) 10 ml PRN PRN IV IV PROTOCOL; Start 09/03/16 at 14:30 Zolpidem Tartrate 5 mg 5 mg HS PRN PO INSOMNIA Last administered on 09/09/16 02 :09; Admin Dose 5 MG; Start 09/03/16 at 22:30 Metronidazole 100 ml @ 100 mls/hr Q8 IVPB Last administered on 09/10/16 14:37 ; Admin Dose 100 MLS/HR; Start 09/04/16 at 22:00 Vancomycin HCl (Vancocin) 250 ml @ 125 mls/hr Q8H IVPB Last administered on 17:11; Admin Dose 125 MLS/HR; Start 6/3/17 at 13:00 Losartan Potassium (Cozaar) 25 mg DAILY@21 PO Last administered on 09/09/16t 21: 28; Admin Dose 25 MG; Start 09/08/16 at 21:00 JEB VAZQUEZ MD Sep 10, 2016 18:23
--- NOTE | 2016-09-10 20:23 | CONS ---
Date/Time of Note Date/Time of Note DATE: 09/10/16 TIME: 20:21 Assessment/Plan Assessment/Plan Additional Assessment/Plan ASSESSMENT: 1. Systemic inflammatory response syndrome with fevers and leukocytosis secondary to #2. 2. Recurrent intraabdominal abscess status post CT-guided drainage, with fluid cultures growing gram-negative rods. 3. History of cholecystectomy. 4. History of biliary leak, status post stent placement on 07/19/2016. 5. Obesity PLAN: 1. continue IR drainage of the intraabdominal abscess. The pigtail catheter was changed from 10 Beninese to 14 Beninese and 30 cc of purulent material removed. There was also seroma clear fluid removed which was a second collection 2. Abx per ID creative consultant. 3. Follow final cultures. 4. repeat CT done and seroma drained 5.still there is 2.5 cm fluid collection.fluid is purulent and not biliary follow up in clinic for removal of stent,discussed with pt.in the afternoon Consultation Date/Type/Reason Admit Date/Time August 27, 2016 at 16:10 Type of Consultation: ID 24 HR Interval Summary Constitutional: improved Exam/Review of Systems Vital Signs Vitals Vital Signs Date Time Temp Pulse Resp B/P Pulse Ox O2 Delivery O2 Flow Rate FiO2 09/10/16 08:00 98.4 18 18 101/52 96 09/09/16 09:11 Room Air Intake and Output 09/09/16 09/09/16 09/10/16 15:00 23:00 07:00 Intake Total 550 ml 980 ml 720 ml Output Total 30 ml 30 ml Balance 550 ml 950 ml 690 ml Exam Constitutional: alert, oriented, well developed Psych: nl mood/affect, no complaints Head: atraumatic, normocephalic Eyes: EOMI, PERRL, nl conjunctiva, nl lids, nl sclera ENMT: nl external ears & nose, nl lips & teeth, nl nasal mucosa & septum Neck: non-tender, supple Respiratory: clear to auscultation, normal air movement Cardiovascular: nl pulses, regular rate and rhythm Gastrointestinal: nl liver, spleen, non-tender, soft Musculoskeletal: nl extremities to inspection, nl gait and stance Extremities: normal pulses Neurological: [employer] II-XII intact, nl mental status, nl speech, nl strength Skin: nl turgor, No rash or lesions Lymph: nl lymph nodes Results Result Diagram: 09/09/16 0515 09/09/16 0515 JESUS AGUILAR MD Sep 10, 2016 20:23
--- NOTE | 2016-09-13 17:27 | QN ---
Documentation Comment [id number] JEB VAZQUEZ MD Sep 13, 2016 17:27
--- NOTE | 2016-09-13 19:55 | DS ---
DATE OF ADMISSION: 08/27/2016 DATE OF DISCHARGE: 09/10/2016 HOSPITAL COURSE: The patient was admitted with abdominal pain, noted to have recurrence of the right upper quadrant abdominal fluid collection. The patient underwent aspiration of the fluid. The patient's cultures came back positive for enterococcus species, enterococcus species coagulase negative staph and E. coli. The patient was seen by Dr. Iglesias in consultation, Dr. Georges and Dr. Blair in consultation. The patient underwent sinus tract injection, shows injection of the catheter in the right upper abdominal quadrant under fluoroscopic demonstrated fistulous connection to bowel. The patient also had a CT of the abdomen done, shows patient has a percutaneous drainage catheter is again seen. There continues to be a small amount of right subphrenic fluid. The patient's pain was also addressed with pain medication. Patient had a CT drainage of the abdominal abscess. Abdominal CT, pelvis CT scan was done. Patient was cleared by Dr. Georges to be discharged home with continuation of drainage catheter. DISCHARGE DIAGNOSES: Include: 1. Recurrent intra-abdominal abscess, status post drainage by CT guidance. 2. Polymicrobial infection. 3. Obesity. 4. History of cholecystectomy. 5. History of anemia. 6. History of leukocytosis. 7. History of blood transfusion. 8. Anxiety and depression. DISCHARGE MEDICATIONS: To continue on: 1. Bisacodyl. 2. Docusate sodium. 3. Xanax. 4. Lunesta. 5. Gabapentin. 6. Losartan. 7. Zofran. 8. Protonix. 9. Continue on Zoloft. 10. Pain medication was also given. The patient will follow up with PCP, Dr. Blair, Dr. Georges, Dr. Dixon and Dr. Iglesisa as an outpatient. Dictated By: JEB VAZQUEZ MD BS/NTS Conf#: [id number] DID#: [id number]
== END 2016-09-10 20:16 | disposition home health service (06) | DRG 862 ==
LOC: FTE 12:05 → PP2 16:10
PROVIDERS: ADMIT Internal Medicine Nephrology; ATTEND Internal Medicine Nephrology
PROC: 0W9G30Z Drainage of Peritoneal Cavity with Drainage Device, Percutaneous Approach (ICD-10-PCS; principal; 2016-08-28)
PROC: 02H633Z Insertion of Infusion Device into Right Atrium, Percutaneous Approach (ICD-10-PCS; 2016-09-03)
PROC: B244ZZZ Ultrasonography of Right Heart (ICD-10-PCS; 2016-09-03)
PROC: 0W9G30Z Drainage of Peritoneal Cavity with Drainage Device, Percutaneous Approach (ICD-10-PCS; 2016-09-04)
PROC: BW111ZZ Fluoroscopy of Abdomen and Pelvis using Low Osmolar Contrast (ICD-10-PCS; 2016-09-08)
DX: T81.4XXA Infection following a procedure, initial encounter (principal); A41.9 Sepsis, unspecified organism; K65.1 Peritoneal abscess; Z68.41 Body mass index [BMI] 40.0-44.9, adult; E78.5 Hyperlipidemia, unspecified; D64.9 Anemia, unspecified; Z90.49 Acquired absence of other specified parts of digestive tract; E87.6 Hypokalemia; F41.9 Anxiety disorder, unspecified; G47.00 Insomnia, unspecified; E66.01 Morbid (severe) obesity due to excess calories; B95.2 Enterococcus as the cause of diseases classified elsewhere; B96.20 Unspecified Escherichia coli [E. coli] as the cause of diseases classified elsewhere; B95.7 Other staphylococcus as the cause of diseases classified elsewhere; Y83.6 Removal of other organ (partial) (total) as the cause of abnormal reaction of the patient, or of later complication, without mention of misadventure at the time of the procedure
CPT/HCPCS: 36569; 71010; 74160; 74176; 75989; 76080; 76700; 76937; 77012; 80048; 80053; 80202; 81001; 82150; 82565; 83605; 83690; 84520; 85025; 85651; 87040; 87070; 87075; 96374; 96375; 96376; J0295; J0696; J0744; J1170; J2185; J2250; J2270; J2405; J2997; J3010; J3370; J3480; J7030; J7040; J7050; Q9967

== ENCOUNTER 2016-11-11 08:54 | Day surgery (SDC) | payer OTHER ==
[~2016-11-11] VITALS: Ht 154.9 cm; Wt 99.2 kg
[2016-11-11] VITALS (12 sets, daily range): BP systolic 129–159; BP diastolic 62–82; PULSE 71–96; RESP 15–27; Ht 154.9 cm; Wt 99.2 kg
[~2016-11-11 08:54] MED LIST changes: +ALPR2TAB PO; +BISA5TAB6 PO; +DOCU-216 PO; -MTF1000T PO; -PANT40TA4 PO; -SERT-165 PO; +SERT100T PO
[2016-11-11] MEDS ORDERED: METF500T4 PO (09:54)
[2016-11-11] MEDS ORDERED: CARI350T29 PO (09:55)
[2016-11-11] MEDS ORDERED: CEFAZOLIN 1 GM INJ ONE (10:30)
[2016-11-11] MEDS ORDERED: DESFLURANE 15 MIN ONE (10:30)
[2016-11-11] MEDS ORDERED: CIPROFLOXACIN 400MG/D5W 200 ML IVPB ONE (10:30)
[2016-11-11 10:31] LABS: BASOPHIL # 0.1 10^3/ul (0.0-0.1); BASOPHILS % 0.5 % (0.0-2.0); EOSINOPHILS # 0.2 10^3/ul (0.0-0.5); EOSINOPHILS % 1.4 % (0.0-7.0); HEMATOCRIT 36.6 % (37.0-47.0); HEMOGLOBIN 12.3 g/dl (12.0-16.0); LYMPHOCYTES # 4.3 10^3/ul (0.8-2.9); LYMPHOCYTES % 31.8 % (15.0-51.0); MEAN CORPUSCULAR HEMOGLOBIN 26.6 pg (29.0-33.0); MEAN CORPUSCULAR HGB CONC 33.6 g/dl (32.0-37.0); MEAN PLATELET VOLUME 9.1 fl (7.4-10.4); MONOCYTE # 0.8 10^3/ul (0.3-0.9); MONOCYTES % 5.5 % (0.0-11.0); NEUTROPHIL # 8.1 10^3/ul (1.6-7.5); NEUTROPHILS % 59.6 % (39.0-77.0); PLATELET COUNT 404 10^3/UL (140-415); RED BLOOD COUNT 4.63 10^6/ul (4.20-5.40); RED CELL DISTRIBUTION WIDTH 17.2 % (11.5-14.5); WHITE BLOOD COUNT 13.6 10^3/ul (4.8-10.8)
[2016-11-11] MEDS ORDERED: CEFAZOLIN 1 GM/50 ML (PMX) 50 ML IVPB ONE (10:43)
[2016-11-11 10:47] LABS: INR 1.05; PARTIAL THROMBOPLASTIN TIME 36.7 Sec (25.0-35.0); PROTIME 13.7 Sec (12.2-14.2); PT RATIO 1.1
[2016-11-11 10:55] LABS: CALCIUM 9.1 mg/dl (8.4-10.2); CREATININE 0.62 mg/dl (0.44-1.00); POTASSIUM 4.1 mmol/L (3.5-5.1)
[2016-11-11] MEDS ORDERED: CEFAZOLIN 1 GM/50 ML (PMX) 50 ML IVPB SCH (11:00)
[2016-11-11] MEDS ORDERED: FENTAnyl 50 MCG/ML VIAL ONE (11:03)
[2016-11-11] MEDS ORDERED: PROPOFOL 20 ML ONE (11:03)
[2016-11-11] MEDS ORDERED: MIDAZOLAM 1 MG/ML 2 ML INJ ONE (11:03)
[2016-11-11] MEDS ORDERED: ROCURONIUM 50 MG INJ ONE (11:03)
[2016-11-11] MEDS ORDERED: SUCCINYLCHOLINE CHLORIDE 100 MG/5 ML SYG IV ONE (11:03)
[2016-11-11] MEDS ORDERED: ONDANSETRON 4 MG INJ ONE (11:11)
[2016-11-11] MEDS ORDERED: METOCLOPRAMIDE 10 MG INJ ONE (11:11)
[2016-11-11] MEDS ORDERED: DEXAMETHASONE 4 MG/ML 1 ML INJ ONE (11:11)
[2016-11-11] MEDS ORDERED: DIPHENHYDRAMINE 50 MG INJ IV PRN (11:30)
[2016-11-11] MEDS ORDERED: LABETALOL HCL 20MG INJ IV PRN (11:30)
[2016-11-11] MEDS ORDERED: morphine (1 MG/ML) 10ML SYRINGE IV PRN ×2 (11:30)
[2016-11-11] MEDS ORDERED: MEPERIDINE 25 MG INJ IV PRN (11:30)
[2016-11-11] MEDS ORDERED: hydrALAzine 20 MG INJ IV PRN (11:30)
[2016-11-11] MEDS ORDERED: ONDANSETRON 4 MG INJ IV PRN (11:30)
[2016-11-11] MEDS ORDERED: FENTAnyl 50 MCG/ML VIAL IV PRN ×3 (11:30)
[2016-11-11] MEDS ORDERED: EPHEDrine SULFATE 50 MG/5 ML SYG IV PRN (11:30)
[2016-11-11] MEDS ORDERED: NEOSTIGMINE 3 MG/3 ML SYRINGE ONE (11:34)
[2016-11-11] MEDS ORDERED: GLYCOPYRROLATE 0.4 MG INJ ONE (11:34)
--- NOTE | 2016-11-11 11:35 | HPN ---
Date/Time of Note Date/Time of Note DATE: 11/11/16 TIME: 11:34 Interval H&P Admission Note Pt. seen H&P reviewed: No system changes JESUS AGUILAR MD Nov 11, 2016 11:35
--- NOTE | 2016-11-11 11:38 | OPPN ---
Date/Time of Note Date/Time of Note DATE: 11/11/16 TIME: 11:36 Operative Report Preoperative Diagnosis Bile duct leak Biliary stent Postoperative Diagnosis Removal of stent No leak demonstrated Operation/Procedure Performed ERCP with removal of the stent Balloon sweeping of the bile duct 12 mm balloon would easily exited through the sphincterotomy Provider: JESUS AGUILAR MD Transfusion Required: no Specimen: none Grafts/Implants: none Complications: no JESUS AGUILAR MD Nov 11, 2016 11:37
--- NOTE | 2016-11-11 12:09 | GILP ---
DATE OF PROCEDURE: 11/11/2016 PROCEDURE PERFORMED: Endoscopic retrograde cholangiopancreatogram, removal of the stent and balloon sweeping of the bile duct. INDICATIONS FOR PROCEDURE: A 36-year-old female undergoing this procedure for removal of the bile duct stent and also perform occlusive cholangiogram to make sure there is no leak and no stone is left again. The risks of the procedure, related complications, and anesthetic risks, alternatives discussed. Informed consent was obtained. DESCRIPTION OF PROCEDURE: The patient was brought to the GI lab, sedated by the anesthesiologist, intubated and placed in prone position. Was given Ancef prior to the procedure. The ERCP scope passed with much ease into the esophagus. Advanced further down into stomach and duodenum. Stent was identified, successfully removed with the help of snare through the biopsy channel. The bile duct was selectively cannulated with the help of a 9-12 mm balloon. Occlusive cholangiogram obtained. Cystic duct appeared much longer than the usual but there was no leakage of bile. The ampullary system appeared normal. A 12 mm balloon was used to sweep the bile duct multiple times. Bile duct 12 mm balloon exited easily through the ampulla. Drainage was excellent, so scope was removed with good patient tolerance. IMPRESSION: 1. Remove the stent. 2. Balloon sweeping of the bile duct multiple times. 3. No leakage could be demonstrated. 4. Fluoroscopy time was 1 second. PLAN: To monitor her symptoms as an outpatient. Patient can go back on a regular diet. Dictated By: Phil Blair MD /twin/rianna /Document#: [id number] CC: Phil Blair MD; Dr. Dixon;*[facility]*
--- NOTE | 2016-11-11 14:42 | RADRPT ---
PROCEDURE: Intraoperative imaging for ERCP with fluoroscopy. CLINICAL INDICATION: Right upper quadrant pain. Intraoperative. TECHNIQUE: 5 images of the right upper quadrant of the abdomen were obtained in the operating room with an image intensifier. No radiologist was in attendance. 0.1 minutes of fluoroscopy time was used. COMPARISON: None. FINDINGS: Images demonstrate the endoscope in position. Contrast was injected into the common bile duct. Diaz creatic duct was not injected. Surgical clips are present from previous cholecystectomy. The commo n bile duct is not dilated. The balloon sweep was made. IMPRESSION: 1. ERCP as described above. RPTAT: QQ .Mao Saeed MD, MD Date Time Electronically viewed and signed by .Mao Saeed MD, on 11/11/2016 14:41 .R/
--- NOTE | 2016-11-11 17:38 | RADRPT ---
Vent Rate: 67 bpm RR Interval: 0 msec [place] Interval: 150 msec QRS Duration: 92 msec QT Interval: 412 msec QTC Interval: 435 msec P-R-T [place]: 35 - -43 - 29 degrees Normal sinus rhythm Left axis deviation Abnormal ECG Electronically Signed By: Oracio Ahumada [id number]
== END 2016-11-11 14:05 | disposition home or self-care (01) ==
LOC: GIL 08:54
PROVIDERS: ATTEND Internal Medicine Gastroenterology
DX: K80.50 Calculus of bile duct without cholangitis or cholecystitis without obstruction (principal); E66.9 Obesity, unspecified; Z68.41 Body mass index [BMI] 40.0-44.9, adult
CPT/HCPCS: 43264; 43275; 74330; 80048; 82962; 84703; 85025; 85610; 85730; 93005; J0690; J0744; J1100; J2250; J2405; J2710; J2765; J3010; Z7512; Z7610; J7999

== ENCOUNTER 2018-07-06 11:32 | Emergency (ER) | payer OTHER ==
[~2018-07-06] VITALS: Wt 90.0 kg
[~2018-07-06 11:32] MED LIST changes: -BISA5TAB6 PO; +CARI350T29 PO; -DOCU-216 PO; +LOSA25TA12 PO; -LOSA25TA5 PO; +METF500T24 PO; -ONDA4TAB95 PO; -PANT40TA3 PO
[2018-07-06] MEDS ORDERED: SOD CHLORIDE 0.9% 1,000 ML IV STA (12:00)
[2018-07-06] MEDS ORDERED: KETOROLAC 30 MG INJ IV STA (12:00)
[2018-07-06] MEDS ORDERED: ONDANSETRON 4 MG INJ IV STA (12:00)
[2018-07-06] MEDS ORDERED: HYDR-4011 PO (14:18)
[2018-07-06] MEDS ORDERED: DICY10CA40 PO (14:18)
[2018-07-06 14:26] VITALS: BP 133/74; PULSE 87; RESP 16
--- NOTE | 2018-07-06 14:49 | ERD ---
ER Documentation Chief Complaint Chief Complaint ABDOMNAL CRAMPING HPI 38-year-old female presenting with abdominal cramping and pelvic pressure. Patient states is been going on for the last 2 days. She took Excedrin with no alleviation. She states she has some cramping sensation that radiates to her back. She denies any vaginal bleeding. Medical history is cold the cystectomy with complications and insertion of abdominal drain. Social history denies. ROS All systems reviewed and are negative except as per history of present illness. Medications Home Meds Active Scripts Hydrocodone/Acetaminophen ([place] 5-325 Tablet) 1 Each Tablet, 1 TAB PO Q6H PRN for PAIN, #5 TAB Prov:MOMO ZHU PA-C 07/06/18 Dicyclomine HCl (Dicyclomine HCl) 10 Mg Capsule, 10 MG PO TID PRN for ABDOMINAL CRAMPING, #20 CAP Prov:MOMO ZHU PA-C 07/06/18 Losartan Potassium* (Losartan Potassium*) 25 Mg Tablet, 25 MG PO DAILY@21 for 28 Days, TAB Prov:JEB VAZQUEZ MD 07/27/16 Reported Medications Carisoprodol* (Carisoprodol*) 350 Mg Tablet, 350 MG PO TID, TAB 11/11/16 Metformin Hcl* (Metformin Hcl*) 500 Mg Tablet, 500 MG PO WITH BREAKFAST DINNE, #30 TAB 11/11/16 Alprazolam* (Xanax*) 2 Mg Tablet, 2 MG PO BID PRN for ANXIETY, TAB 08/27/16 Sertraline Hcl* (Zoloft*) 100 Mg Tablet, 200 MG PO DAILY, #60 TAB 08/27/16 Gabapentin* (Gabapentin*) 300 Mg Capsule, 300 MG PO Q6H, #90 CAP 08/06/16 Eszopiclone (Lunesta) 2 Mg Tab, 2 MG PO HS PRN for INSOMNIA, TAB 04/28/16 Allergies Allergies: Coded Allergies: No Known Allergy (Unverified , 11/11/16) PMhx/Soc History of Surgery: Yes (CHOLECYSTECTOMY 2016, HERNIA REPAIR 1984,APPENDECTOMY 2002, BILIARY STENT) Anesthesia Reaction: No Hx Neurological Disorder: No Hx Respiratory Disorders: No Hx Cardiac Disorders: Yes (HTN) Hx Psychiatric Problems: No Hx Miscellaneous Medical Probl: No Hx Alcohol Use: Yes (OCCASSIONAL) Hx Substance Use: No Hx Tobacco Use: No Smoking Status: Never smoker FmHx Family History: No diabetes, No coronary disease, No other Physical Exam Vitals Vital Signs Date Temp Pulse Resp B/P (MAP) Pulse Ox O2 O2 Flow FiO2 Time Delivery Rate 07/06/18 87 16 133/74 99 Room Air 14:26 (93) 07/06/18 98.1 80 18 128/80 99 11:35 (96) Physical Exam GENERAL: The patient is well-appearing, well-nourished, in no acute distress HEENT: Atraumatic. Conjunctivae are pink. Pupils equal, round, and reactive to light. There is no scleral icterus. Tympanic membranes clear bilaterally. Oropharynx clear. NECK: C-spine is soft and supple. There is no meningismus. There is no cervical lymphadenopathy. CHEST: Clear to auscultation bilaterally. There are no rales, wheezes or rhonchi. HEART: Regular rate and rhythm. No murmurs, clicks, rubs or gallops. ABDOMEN:Soft, nontender and nondistended. Good bowel sounds. No rebound or guarding. No gross peritonitis. No gross organomegaly or masses. No Devlin sign or McBurney point tenderness. BACK: No midline or flank tenderness. Result Diagram: 07/06/18 1235 07/06/18 1235 Results 24 hrs Laboratory Tests Test 07/06/18 12:35 White Blood Count 14.6 10^3/ul Red Blood Count 5.15 10^6/ul Hemoglobin 14.2 g/dl Hematocrit 43.7 % Mean Corpuscular Volume 84.9 fl Mean Corpuscular Hemoglobin 27.6 pg Mean Corpuscular Hemoglobin Concent 32.5 g/dl Red Cell Distribution Width 13.7 % Platelet Count 361 10^3/UL Mean Platelet Volume 9.1 fl Immature Granulocytes % 0.700 % Neutrophils % 65.8 % Lymphocytes % 25.7 % Monocytes % 6.1 % Eosinophils % 1.2 % Basophils % 0.5 % Nucleated Red Blood Cells % 0.0 /100WBC Immature Granulocytes # 0.100 10^3/ul Neutrophils # 9.6 10^3/ul Lymphocytes # 3.8 10^3/ul Monocytes # 0.9 10^3/ul Eosinophils # 0.2 10^3/ul Basophils # 0.1 10^3/ul Nucleated Red Blood Cells # 0.0 10^3/ul Urine Color YELLOW Urine Clarity CLOUDY Urine pH 6.0 Urine Specific [place]ove 1.012 Urine Ketones NEGATIVE mg/dL Urine Nitrite NEGATIVE mg/dL Urine Bilirubin NEGATIVE mg/dL Urine Urobilinogen NEGATIVE mg/dL Urine Leukocyte Esterase 1+ Michael/ul Urine Microscopic RBC 4 /HPF Urine Microscopic WBC 10 /HPF Urine Squamous Epithelial Cells FEW /HPF Urine Bacteria FEW /HPF Urine Mucus FEW /HPF Urine Hemoglobin 2+ mg/dL Urine Glucose NEGATIVE mg/dL Urine Total Protein NEGATIVE mg/dl Urine Test NEGATIVE Sodium Level 142 mmol/L Potassium Level 4.2 mmol/L Chloride Level 101 mmol/L Carbon Dioxide Level 27 mmol/L Anion Gap 14 Blood Urea Nitrogen 17 mg/dl Creatinine 0.57 mg/dl Est Glomerular Filtrat Rate mL/min > 60 mL/min Glucose Level 74 mg/dl Calcium Level 9.5 mg/dl Total Bilirubin 0.1 mg/dl Direct Bilirubin 0.00 mg/dl Indirect Bilirubin 0.1 mg/dl Aspartate Amino Transf (AST/SGOT) 18 IU/L Alanine Aminotransferase (ALT/SGPT) 13 IU/L Alkaline Phosphatase 184 IU/L Troponin I < 0.012 ng/ml Total Protein 8.7 g/dl Albumin 4.8 g/dl Globulin 3.90 g/dl Albumin/Globulin Ratio 1.23 Lipase 89 U/L Current Medications Medications Dose Sig/Belkys Start Time Status Last (Trade) Ordered Route PRN Stop Time Admin Dose Reason Admin Sodium 1,000 ml @ Q1H STAT 07/06/18 DC 07/06/18 Chloride 1,000 mls/hr IV 12:00 07/06/18 13:42 12:59 Ondansetron 4 mg ONCE STAT 07/06/18 DC 07/06/18 HCl (Zofran IV 12:00 07/06/18 13:42 Inj) 12:02 Ketorolac 30 mg ONCE STAT 07/06/18 DC 07/06/18 Tromethamine IV 12:00 07/06/18 13:42 (Toradol) 12:02 Procedures/MDM DIAGNOSTIC IMAGING REPORT Patient: LACHO GAMBLE : 1980 Age: 38 Sex: F MR #: [id number] DOS: 07/06/18 1200 Ordering MD: PETER ZHU PA-C Location: [facility] Room/Bed: PROCEDURE: CT Abdomen and Pelvis without contrast. CLINICAL INDICATION: Abdominal and pelvic pain. TECHNIQUE: CT scan of the abdomen and pelvis without contrast was performed. Coronal and sagittal reformatted images were obtained from the axial source images. Images were reviewed on a high-resolution PACS workstation. Total exam DLP is 1432.01 mGy-cm. CTDIvol is 23.38 mGy. One or more of the following dose reduction techniques were used: Automated exposure control, adjustment of the mA and/or kV according to patient size, use of iterative reconstruction technique. DICOM images are available. COMPARISON: Contrast enhanced CT scan of the abdomen and pelvis dated 09/04/2016. FINDINGS: The lung bases are normal. There is no pleural effusion. The liver is normal in size and attenuation. There is no focal hepatic lesion. The gallbladder is surgically absent with clips noted in the gallbladder bed. The previous study demonstrated a drainage catheter in a right flank abscess. The catheter and abscess are no longer present. The spleen is normal in size. There is no focal splenic lesion. Both adrenals are normal with no enlargement or mass. The pancreas is unremarkable with no mass or evidence of pancreatitis. There is no renal mass or hydronephrosis. There is no renal calculus or ureteral calculus. The abdominal aorta is not dilated. There is no retroperitoneal lymphadenopathy or mass. There is no pelvic lymphadenopathy or mass. The bladder and distal ureters are normal. The periappendiceal region is unremarkable with no evidence of appendicitis. The bowel and mesentery are normal. There is no free fluid or free gas. The osseous structures are unremarkable with no fracture or lytic lesion. IMPRESSION: 1. Status post cholecystectomy. 2. Previously noted right flank abscess drainage catheter are no longer present. 3. Otherwise unremarkable noncontrast CT scan of the abdomen and pelvis. DIAGNOSTIC IMAGING REPORT Patient: LACHO GAMBLE : 1980 Age: 38 Sex: F MR #: [id number] DOS: 07/06/18 1200 Ordering MD: PETER ZHU PA-C Location: [facility] Room/Bed: PROCEDURE: US Pelvis. CLINICAL INDICATION: Pelvic pain. TECHNIQUE: The pelvis was evaluated with transabdominal and transvaginal sonography in the axial and sagittal planes. COMPARISON: No prior study is available for comparison. FINDINGS: Uterus: 9.2 x 4.1 x 5.1 cm. Endometrium: 10.5 mm. Right ovary: 3.7 x 1.6 x 2.6 cm. Left ovary: 4.0 x 2.2 x 2.4 cm. Uterine masses: None. Ovarian masses: None. Color Doppler and pulsed Doppler sonography demonstrate normal flow to the ovaries. Other pelvic masses: None. Free fluid: None. IMPRESSION: 1. Normal pelvic ultrasound. ER Course: 1L NS given in ED. Toradol and Zofran given in ED MDM: 38-year-old female presenting with abdominal pain. Patient's abdominal exam with blood work and imaging are within normal limits. Low suspicion for ca rdiac or pulmonary emergency. I have low suspicion for urinary tract infection. I have low suspicion for pyelonephritis or nephrolithiasis. Patient is discharged with supportive medications. Patient is discharged with stricter precautions and told to follow-up with primary care within 1-2 days for close evaluation. Patient is told if symptoms change or worsen to return immediately to the ER. Departure Diagnosis: Primary Impression: Abdominal pain Condition: Stable Patient Instructions: Abdominal Pain Referrals: [facility] YOU HAVE RECEIVED A MEDICAL SCREENING EXAM AND THE RESULTS INDICATE THAT YOU DO NOT HAVE A CONDITION THAT REQUIRES URGENT TREATMENT IN THE EMERGENCY DEPARTMENT. FURTHER EVALUATION AND TREATMENT OF YOUR CONDITION CAN WAIT UNTIL YOU ARE SEEN IN YOUR DOCTORS OFFICE WITHIN THE NEXT 1-2 DAYS. IT IS YOUR RESPONSIBILITY TO MAKE AN APPOINTMENT FOR FOLOW-UP CARE. IF YOU HAVE A PRIMARY DOCTOR --you should call your primary doctor and schedule an appointment IF YOU DO NOT HAVE A PRIMARY DOCTOR YOU CAN CALL OUR PHYSICIAN REFERRAL HOTLINE AT IF YOU CAN NOT AFFORD TO SEE A PHYSICIAN YOU CAN CHOSE FROM THE FOLLOWING [facility] [address] [facility] [address] [email or web address] [address] [facility] [address] [facility] [address] [facility]. [facility] [address] Additional Instructions: FOLLOW UP WITH YOUR PRIMARY CARE PHYSICIAN TOMORROW.Return to this facility if you are not improving as expected. MOMO ZHU PA-C Jul 06, 2018 14:49
== END 2018-07-06 14:33 | disposition home or self-care (01) ==
LOC: FTE 11:32
DX: R10.9 Unspecified abdominal pain (principal); I10 Essential (primary) hypertension; R10.2 Pelvic and perineal pain; E11.9 Type 2 diabetes mellitus without complications; Z79.84 Long term (current) use of oral hypoglycemic drugs
CPT/HCPCS: 36415; 74176; 76830; 76856; 80053; 81001; 83690; 84484; 84703; 85025; 93005; 96361; 96374; 96375; J1885; J2405; J7030; Z7502

== ENCOUNTER 2018-10-14 17:40 | Emergency (ER) | payer OTHER ==
[~2018-10-14] VITALS: Ht 162.6 cm; Wt 111.9 kg
[~2018-10-14 17:40] MED LIST changes: +DICY10CA40 PO; +HYDR-4011 PO
[2018-10-14 18:07] VITALS: BP 127/79; PULSE 85; RESP 18; Ht 162.6 cm; Wt 111.9 kg
[2018-10-14] MEDS ORDERED: OXYC-279 PO (19:17)
[2018-10-14] MEDS ORDERED: IBUP-1561 PO (19:17)
--- NOTE | 2018-10-14 21:12 | ERD ---
ER Documentation Chief Complaint Chief Complaint RIGHT ARM PAIN S/P FALL IN AUGUST; STILL HAD PAIN. CMS INTACT. HPI 38-year-old female with history of anxiety presents for right elbow and right shoulder pain x1 week. She states that she fell back in August and hurt her right elbow and right shoulder however she delayed getting medical attention. She states that she currently has 8 out of 10 pain, intermittent, worse with movement. The pain is described as a dull sensation. Pain is nonradiating. She tried some [place] and [place] with only mild relief. No other modifying factors noted, no treatment tried at home. Patient denies any fevers or chills. Denies chest pain or shortness of breath. ROS All systems reviewed and are negative except as per history of present illness. Medications Home Meds Active Scripts Ibuprofen* (Motrin*) 400 Mg Tab, 400 MG PO Q6H PRN for PAIN AND OR ELEVATED TEMP, #30 TAB Prov:MELANIE STYLES DO 10/14/18 Oxycodone HCl/Acetaminophen (Percocet 5-325 mg Tablet) 1 Each Tablet, 1 TAB PO Q6H PRN for PAIN, #5 TAB Prov:MELANIE STYLES DO 10/14/18 Hydrocodone/Acetaminophen ([place] 5-325 Tablet) 1 Each Tablet, 1 TAB PO Q6H PRN for PAIN, #5 TAB Prov:MOMO ZHU PA-C 07/06/18 Dicyclomine HCl (Dicyclomine HCl) 10 Mg Capsule, 10 MG PO TID PRN for ABDOMINAL CRAMPING, #20 CAP Prov:MOMO ZHU PA-C 07/06/18 Losartan Potassium* (Losartan Potassium*) 25 Mg Tablet, 25 MG PO DAILY@21 for 28 Days, TAB Prov:JEB VAZQUEZ MD 07/27/16 Reported Medications Carisoprodol* (Carisoprodol*) 350 Mg Tablet, 350 MG PO TID, TAB 11/11/16 Metformin Hcl* (Metformin Hcl*) 500 Mg Tablet, 500 MG PO WITH BREAKFAST DINNE, #30 TAB 11/11/16 Alprazolam* (Xanax*) 2 Mg Tablet, 2 MG PO BID PRN for ANXIETY, TAB 08/27/16 Sertraline Hcl* (Zoloft*) 100 Mg Tablet, 200 MG PO DAILY, #60 TAB 08/27/16 Gabapentin* (Gabapentin*) 300 Mg Capsule, 300 MG PO Q6H, #90 CAP 08/06/16 Eszopiclone (Lunesta) 2 Mg Tab, 2 MG PO HS PRN for INSOMNIA, TAB 04/28/16 Allergies Allergies: Coded Allergies: No Known Allergy (Unverified , 11/11/16) PMhx/Soc History of Surgery: Yes (CHOLECYSTECTOMY 2016, HERNIA REPAIR 1984,APPENDECTOMY 2002, BILIARY STENT17) Anesthesia Reaction: No Hx Neurological Disorder: No Hx Respiratory Disorders: No Hx Cardiac Disorders: Yes (HTN) Hx Psychiatric Problems: No Hx Miscellaneous Medical Probl: No Hx Alcohol Use: Yes (OCCASSIONAL) Hx Substance Use: No Hx Tobacco Use: No FmHx Family History: No coronary disease Physical Exam Vitals Vital Signs Date Temp Pulse Resp B/P (MAP) Pulse Ox O2 O2 Flow FiO2 Time Delivery Rate 10/14/18 97.7 85 18 127/79 97 18:07 (95) Physical Exam Const: No acute distress Resp: Clear to auscultation bilaterally Cardio: Regular rate and rhythm, no murmurs Skin: No petechiae or rashes Back: No midline or flank tenderness Neur: Awake and alert Psych: Normal Mood and Affect Upper Extremity -right Skin: No laceration, or evidence of external trauma Compartments: Soft Motor: Full active range of motion shoulder/wrist/hand, decreased range of motion of the right elbow and right shoulder Sensation: Intact shoulder/pinky/middle finger/thumb web space Bones: Nontender humerus/forearm/wrist/hand, there is some tenderness palpation over the right elbow and right shoulder Snuffbox: Nontender Joints: No effusion Pulses/Perfusion: 2+ radial, Capillary refill < 2 seconds Procedures/MDM Medical Decision Making: Differential diagnosis includes but not limited to fracture, dislocation, muscle strain, ligamentous sprain, septic joint, osteomyelitis, gout Patient appeared well on physical exam. There was tenderness over the right elbow and right shoulder Patient was neurovascularly intact Patient denies fever, no recent infection, low suspicion for septic joint or osteomyelitis. ED course: Imaging: X-ray right shoulder 3V Interpreted by me: Bones: No fracture Joints: No dislocation Foreign body: None X-ray right Elbow 3V Interpreted by me: Fat Pads: Normal Bones: No fracture Joints: No dislocation Foreign body: None Patient was informed of her results. Advised to follow with her primary care physician for possible referral to physical therapy. Prescription(s): Patient given prescription for supportive medication(s). Given the patient was taking [place] with mild relief. Patient given short course of percocet. Follow up: Patient advised to follow up with ortho surgery. Information for follow up provided. Patient advised to follow up with PCP in 1-2 days. Patient advised to return to ED for new or worsening symptoms. Patient stable on discharge from the ED. The patient has been prescribed [place] during this encounter. The patient has been warned about the use of narcotics. The patient should not drive or operate heavy machinery while taking this medication. The patient was also warned about the addictive properties of narcotic medications. Narcan prescription was NOT provided given the following criteria 1. No more than 5 tablets of [id number] mg or 10 tablets of percocet 5 mg were prescribed. 2. Concomitant opiate and benzodiazepine prescriptions were not provided. 3. There is no obvious evidence of prior history of opiate abuse or overdose. Disclaimer: Inadvertent spelling and grammatical errors are likely due to EHR/dictation software use and do not reflect on the overall quality of patient care. Also, please note that the electronic time recorded on this note does not necessarily reflect the actual time of the patient encounter. Departure Diagnosis: Primary Impression: Pain of right arm Condition: Fair Patient Instructions: Pain Management Referrals: [facility] YOU HAVE RECEIVED A MEDICAL SCREENING EXAM AND THE RESULTS INDICATE THAT YOU DO NOT HAVE A CONDITION THAT REQUIRES URGENT TREATMENT IN THE EMERGENCY DEPARTMENT. FURTHER EVALUATION AND TREATMENT OF YOUR CONDITION CAN WAIT UNTIL YOU ARE SEEN IN YOUR DOCTORS OFFICE WITHIN THE NEXT 1-2 DAYS. IT IS YOUR RESPONSIBILITY TO MAKE AN APPOINTMENT FOR FOLOW-UP CARE. IF YOU HAVE A PRIMARY DOCTOR --you should call your primary doctor and schedule an appointment IF YOU DO NOT HAVE A PRIMARY DOCTOR YOU CAN CALL OUR PHYSICIAN REFERRAL HOTLINE AT IF YOU CAN NOT AFFORD TO SEE A PHYSICIAN YOU CAN CHOSE FROM THE FOLLOWING [facility] [address] [facility] [address] [facility] [address] [facility] [address] [facility]. [facility] [address] [facility]. [facility]. [address] Additional Instructions: Call your primary care doctor TOMORROW for an appointment during the next 1-2 days.See the doctor sooner or return here if your condition worsens before your appointment time. MELANIE STYLES DO Oct 14, 2018 21:12
== END 2018-10-14 19:18 | disposition home or self-care (01) ==
LOC: E/R 17:40
DX: M79.601 Pain in right arm (principal); I10 Essential (primary) hypertension; Z79.84 Long term (current) use of oral hypoglycemic drugs
CPT/HCPCS: 73030; 73080; Z7502

== ENCOUNTER 2018-11-21 23:43 | Emergency (ER) | payer OTHER ==
[~2018-11-21] VITALS: Ht 162.6 cm; Wt 110.4 kg
[~2018-11-21 23:43] MED LIST changes: +IBUP-1561 PO; +OXYC-279 PO
[2018-11-21 23:54] VITALS: BP 133/60; PULSE 91; RESP 18; Ht 162.6 cm; Wt 110.4 kg
[2018-11-22] MEDS ORDERED: ACETAMINOPHEN 500 MG TAB PO STA (00:29)
== END 2018-11-22 02:35 | disposition home or self-care (01) ==
LOC: FTE 23:43
DX: O26.891 Other specified pregnancy related conditions, first trimester (principal); R10.2 Pelvic and perineal pain; Z3A.01 Less than 8 weeks gestation of pregnancy
CPT/HCPCS: 36415; 76801; 81001; 84702; 85025; 86900; 86901; Z7502; Z7610